=== PATIENT | female | born 1940 | race Caucasian/White ===

== ENCOUNTER 2021-05-25 11:43 | Outpatient (REF) | payer MEDICARE, SELFPAY ==
[2021-05-25 12:56] LABS: MANUAL DIFF FLAG NO
[2021-05-25 13:07] LABS: Basophils Percent Auto 0.3 % (0-2); Eosinophils Absolute Auto 0.3 X10*3/uL (0.0-0.4); Eosinophils Percent Auto 2.9 % (0-4); Hematocrit 42.8 % (37-47); Hemoglobin 13.9 g/dl (12.0-16.0); Imm Gran Abs Auto 0.04 X10*3/uL (0.00-0.03); Imm Gran Pct Auto 0.4 % (0.0-0.4); Lymphocytes Absolute Auto 1.2 X10*3/uL (1.2-4.9); Lymphocytes Percent Auto 13.1 % (20-40); Mean Corpuscular HGB Conc 32.5 g/dl (31.0-35.0); Mean Corpuscular Hemoglobin 31.5 pg (27.0-33.0); Mean Corpuscular Volume 97.1 fL (80-98); Monocytes Absolute Auto 0.8 X10*3/uL (0.1-1.2); Monocytes Percent Auto 8.7 % (2-11); Neutrophils Absolute Auto 7.1 X10*3/uL (2.0-8.3); Neutrophils Percent Auto 74.6 % (45-73); Platelet Count 284 X10*3/uL (160-400); Red Blood Count 4.41 X10*6/uL (4.20-5.50); Red Cell Distribution Width 13.9 % (11.0-16.0); White Blood Count 9.5 X10*3/uL (4.8-10.8)
[2021-05-25 13:26] LABS: Alanine Aminotransferase 7 U/L (0-31); Albumin Level 4.2 g/dL (3.5-5.0); Alkaline Phosphatase 103 U/L (39-117); Anion Gap 14 (12-20); Aspartate Amino Transferase 16 U/L (5-31); Bilirubin Total 0.4 mg/dL (0.0-1.0); Blood Urea Nitrogen 16 mg/dL (9-16); Calcium 9.5 mg/dL (8.4-10.2); Carbon Dioxide 30 mmol/L (22-29); Chloride 103 mmol/L (96-108); Cholesterol 180 mg/dL; Estimated Glomerular Filt Rate > 60; Glucose Random 89 mg/dL (60-115); Sodium 143 mmol/L (135-145); Total Protein 7.3 g/dL (6.5-8.0)
[2021-05-25 13:49] LABS: Thyroid Stimulating Hormone 2.04 uIU/mL (0.32-4.0)
[2021-05-25 15:36] LABS: Creatinine Urine 47.26 mg/dL; Microalbum/Creatinine Ratio Ur 10.5 ug/mg cr
[2021-05-31 08:11] LABS: HCV Log PCR <1.18 NOT DETECTED Log IU/mL (NOT DETECTED); HepC Viral Load <15 NOT DETECTED IU/mL (NOT DETECTED)
== END 2021-05-25 11:44 | disposition home or self-care (01) ==
LOC: HO.LAB 11:43
PROVIDERS: PCP Internal Medicine; Visit Provider Internal Medicine
DX: R60.0 Localized edema (principal); I10 Essential (primary) hypertension; E11.9 Type 2 diabetes mellitus without complications; K21.9 Gastro-esophageal reflux disease without esophagitis; M19.90 Unspecified osteoarthritis, unspecified site
CPT/HCPCS: 36415; 80053; 82043; 82465; 84443; 85025; 87522

== ENCOUNTER 2021-05-30 10:00 | Outpatient (RCR) | payer MEDICARE, SELFPAY | END 2021-06-15 18:16 | disposition home or self-care (01) | LOC: HO.PT 10:00 | PROVIDERS: Visit Provider Physician Assistant | DX: M76.62 Achilles tendinitis, left leg (principal) | CPT/HCPCS: 97110; 97112; 97150; 97161 ==

== ENCOUNTER 2021-08-17 11:13 | Outpatient (REF) | payer MEDICARE, SELFPAY ==
[2021-08-17 13:56] LABS: Estimated Average Glucose 117 mg/dL; Hemoglobin A1c % 5.7 %
[2021-08-17 14:13] LABS: Anion Gap 14 (12-20); Blood Urea Nitrogen 12 mg/dL (9-16); Calcium 9.7 mg/dL (8.4-10.2); Carbon Dioxide 28 mmol/L (22-29); Chloride 104 mmol/L (96-108); Estimated Glomerular Filt Rate > 60; Glucose Random 69 mg/dL (60-115); Potassium 4.5 mmol/L (3.3-5.1); Sodium 141 mmol/L (135-145)
[2021-08-17 14:23] LABS: B Type Natriuretic Peptide 193 pg/mL (<100)
== END 2021-08-17 11:14 | disposition home or self-care (01) ==
LOC: HO.10HDL 11:13
PROVIDERS: Visit Provider Internal Medicine
DX: E11.9 Type 2 diabetes mellitus without complications (principal); R05.9 Cough, unspecified; R60.9 Edema, unspecified
CPT/HCPCS: 36415; 80048; 83036; 83880

== ENCOUNTER 2021-08-28 13:58 | Outpatient (REF) | payer MEDICARE, SELFPAY ==
--- NOTE | ~2021-08-28 | XR_ITS ---
EXAMINATION: XR BILATERAL HIPS WITH AP PELVIS CLINICAL INFORMATION: Left hip pain COMPARISON: None TECHNIQUE: 2 views of each hip FINDINGS: No fracture or dislocation. The hips are well aligned. Mild joint space narrowing of both hips with subchondral sclerosis and small osteophytes. The sacroiliac joints are symmetric. The pubic symphysis is well aligned. Nonobstructive bowel gas pattern. XR/XR hips KUSHAL min 3V IMPRESSION: Mild degenerative changes of both hips.
== END 2021-08-28 13:59 | disposition home or self-care (01) ==
LOC: HO.XRAY 13:58
PROVIDERS: PCP Internal Medicine; Visit Provider Internal Medicine
DX: M25.552 Pain in left hip (principal)
CPT/HCPCS: 73522

== ENCOUNTER 2021-09-04 13:57 | Emergency (ER) | payer MEDICARE, SELFPAY ==
--- NOTE | ~2021-09-04 | CT_ITS ---
EXAMINATION: CT ABDOMEN AND PELVIS WITHOUT CONTRAST CLINICAL INFORMATION: Left flank pain COMPARISON: 01/08/2011 TECHNIQUE: Multidetector volumetric imaging was performed from the superior aspect of the liver through the pubic symphysis. Sagittal and coronal reformatted images were obtained on the technologist's workstation. This CT examination was performed using dose optimization techniques as appropriate, variously including the following: *Automated exposure control *Adjustment of mA and/or kV according to patient size (this includes techniques or standardized protocols for targeted exams where dose is matched to indication/reason for exam; i.e. extremities or head) *Use of iterative reconstruction technique DLP: 1268 mGy-cm FINDINGS: LUNG BASES: Bibasilar atelectasis. Coronary artery calcifications are noted. LIVER, GALLBLADDER, AND BILIARY TREE: The liver is normal in size, shape, and attenuation. No biliary ductal dilatation. There is a 1.3 cm simple cyst in segment 3 of the liver. The gallbladder is unremarkable with no evidence of radiopaque gallstones, gallbladder wall thickening, or obvious pericholecystic inflammatory changes. PANCREAS: Unremarkable. SPLEEN: Unremarkable. ADRENAL GLANDS: Unremarkable. KIDNEYS AND URETERS: The kidneys are normal in size, shape, and attenuation. No hydronephrosis, hydroureter, or calculi seen. No perinephric stranding. Simple cysts of the left kidney noted. No follow-up imaging recommended. BLADDER: Unremarkable. GASTROINTESTINAL TRACT: The stomach is unremarkable. Normal caliber small bowel. No obstruction. No colonic wall thickening or inflammatory change. There is diverticulosis without diverticulitis. The appendix is not definitively seen. No inflammatory changes in the region of the cecum to suggest appendicitis. Moderate colonic stool burden. ABDOMINAL WALL: No significant hernia is appreciated. LYMPH NODES: Normal. VASCULAR: Normal caliber aorta with mild atherosclerotic calcification. PELVIC VISCERA: The uterus is not seen. No adnexal mass. OSSEOUS STRUCTURES: No acute or suspicious osseous abnormality. Degenerative changes throughout the spine. Multilevel vacuum disc phenomenon. Mild degenerative changes of both hips. CT/CT abdomen pelvis wo con IMPRESSION: No acute findings in the abdomen or pelvis. No hydronephrosis or nephrolithiasis. Simple cysts of the liver and left kidney. No follow-up imaging recommended. Colonic diverticulosis without diverticulitis. Moderate stool burden.
--- NOTE | ~2021-09-04 | XR_ITS ---
EXAMINATION: XR CHEST CLINICAL INFORMATION: Dyspnea COMPARISON: 07/30/2019 TECHNIQUE: 2 views of the chest were obtained. FINDINGS: The lungs are well expanded. There is no focal consolidation, edema, or effusion. Bronchial wall thickening noted. No pneumothorax. The cardiomediastinal silhouette is within normal limits of size, with a calcified and tortuous aorta. No acute osseous abnormality. XR/XR chest 2V IMPRESSION: No consolidation. Bronchial wall thickening can be seen with a small airways process such as asthma or atypical/viral infection.
[2021-09-04 15:01] VITALS: BP 194/129; PULSE 109; RESP 24; TEMP 36.6; O2SAT 92; BMI 49.9
--- NOTE | 2021-09-04 16:16 | ECG_ITS ---
Test Reason : BACK PAIN Blood Pressure : / mmHG Vent. Rate : 087 BPM Atrial Rate : 087 BPM P-R Int : 180 ms QRS Dur : 092 ms QT Int : 402 ms P-R-T Axes : 057 -04 055 degrees QTc Int : 483 ms Normal sinus rhythm Normal ECG When compared with ECG of 30-JUL-2019 21:33, No significant change was found Referred By: Matt Rubio Electronically Signed By:RUBEN ENCISO MD
--- NOTE | 2021-09-04 16:20 | ED.GENADULT ---
HPI - General Adult General Chief complaint: General Medical Stated complaint: multiple complaints Time Seen by Provider: 09/04/21 16:02 Source: patient, family and old records reviewed Limitations: no limitations History of Present Illness HPI narrative: Patient complaining of left flank in the left abdominal pain. It started approximately a week ago. Is getting progressively worse. She was recently seen for bilateral hip pain, left greater than right and had an x-ray which revealed bilateral degenerative changes but no acute fractures. She denies any fevers or chills. Decreased appetite without nausea or vomiting. No diarrhea or constipation. History of hypertension, diabetes, obesity. History of COPD without history of smoking. She complains of dyspnea on exertion but that is baseline for her. No recent changes in her respiratory pattern per patient. Pain in her flank and back is worse with moving and stretching. No recent injuries or falls. No history of kidney stones Related Data Previous Rx's Medication Instructions Recorded oxycodone-acetaminophen 5 mg-325 1 tab PO TID PRN #14 tab 09/04/21 mg tablet (Percocet) Allergies Allergy/AdvReac Type Severity Reaction Status Date / Time mold [MOLD] Allergy Intermediate COUGHING, Verified 09/04/21 15:01 SINUS CONGESTION Penicillins [PENICILLINS] Allergy Intermediate REVERSE Verified 09/04/21 15:01 REACTION MAKES PT FEEL WORSE Review of Systems Constitutional: Comments: No fevers or chills or weight loss Cardiovascular: Comments: No chest pain Respiratory: Comments: Chronic cough and dyspnea Gastrointestinal: Comments: Left-sided flank and abdominal pain Genitourinary: Comments: No dysuria Musculoskeletal: Comments: Chronic bilateral hip pain acutely worse Integumentary/Breasts: Comments: No rash Neurologic: Comments: No weakness numbness or paresthesias COUNT INCLUDES THE [facility] Past Medical History Medical History (Updated 09/04/21 @ 18:10 by Matt Rubio MD) Arthritis COPD (chronic obstructive pulmonary disease) Hypertension Social History Social History Advance Directives: No Advance Directives Information Provided: No Physical Exam Vital Signs: Vital Signs: Last Vital Signs Temp 97.9 F 09/04/21 15:01 Pulse 109 H 09/04/21 15:01 Resp 18 09/04/21 17:28 BP 194/129 H 09/04/21 15:01 Pulse Ox 92 09/04/21 15:01 Body Mass Index 49.9 Const: Other: Awake and alert in no acute distress. She does appear dyspneic after Resp: Other: Diminished bilaterally with bibasilar rales Cardio: Other: Regular rate and rhythm without murmurs rubs or gallops GI: Other: Tender left upper abdomen without guarding or rebound. Also left flank tenderness. No lower abdominal tenderness Skin: Other: Warm pink and dry Neuro: Other: No obvious neuro deficit Course Course Course Narrative: Patient with left upper abdominal and flank pain. Musculoskeletal pain Diverticulitis Kidney stone Pyelonephritis Gastritis Peptic ulcer disease Pneumonia PE 5:[address] scan without significant pathology. White count is normal. Chemistries are unremarkable. Her BNP is mildly elevated at 322 butter x-ray shows no evidence of congestive heart failure patient states her breathing is at its baseline. Her high sensitivity troponin is 8.9. Her blood pressure is initially elevated 194/129. Will repeat. 6:08 p.m.. On further review, patient states she did not take her blood pressure medications morning. She is unsure of what the medication is but review of external history shows she is on diltiazem 360 mg daily as well as furosemide 40 mg daily. Both of these ordered in the emergency department. Patient is otherwise stable for discharge home. Prescription for oxycodone and follow up physical therapy. Medical Decision Making Lab Data Result diagrams: 09/04/21 17:10 09/04/21 17:09 Labs: Lab Results 09/04/21 09/04/21 09/04/21 Range/Units 17:09 17:09 17:10 WBC 9.8 (4.8-10.8) X10*3/uL RBC 4.88 (4.20-5.50) X10*6/uL Hgb 15.5 (12.0-16.0) g/dl Hct 46.3 (37.0-47.0) % MCV 94.9 (80.0-98.0) fL MCH 31.8 (27.0-33.0) pg MCHC 33.5 (31.0-35.0) g/dl RDW 13.6 (11.0-16.0) % Plt Count 280 (160-400) X10*3/uL MPV 10.2 (9.4-12.3) fL Immature Gran % (Auto) 0.5 H (0.0-0.4) % Neut % (Auto) 76.0 H (45-73) % Lymph % (Auto) 12.4 L (20-40) % [place] % (Auto) 9.1 (2-11) % Eos % (Auto) 1.6 (0-4) % Baso % (Auto) 0.4 (0-2) % Lymph # (Auto) 1.2 (1.2-4.9) X10*3/uL [place] # (Auto) 0.9 (0.1-1.2) X10*3/uL Eos # (Auto) 0.2 (0.0-0.4) X10*3/uL Baso # (Auto) 0.0 (0.0-0.2) X10*3/uL Abs Immat Gran (auto) 0.05 H (0.00-0.03) X10*3/uL Absolute Neuts (auto) 7.44 (2.0-8.3) x10*3/uL Absolute Nucleated RBC 0.000 (0.0-0.012) X10*3/uL Nucleated RBC % (auto) 0.0 (0.0-0.2) /100WBC PT 11.2 (9.9-13.0) SEC INR 1.0 (0.9-1.1) D-Dimer < 200 NG/ML Sodium 139 (135-145) mmol/L Potassium 4.1 (3.3-5.1) mmol/L Chloride 105 (96-108) mmol/L Carbon Dioxide 24 (22-29) mmol/L Anion Gap 14 (12-20) BUN 10 (9-16) mg/dL Creatinine 0.72 (0.5-1.4) mg/dL Estim Creat Clear Calc 88.6 Estimated GFR > 60 Random Glucose 103 (60-115) mg/dL Calcium 9.4 (8.4-10.2) mg/dL Total Bilirubin 0.4 (0.0-1.0) mg/dL AST 19 (5-31) U/L ALT 12 (0-31) U/L Alkaline Phosphatase 99 (39-117) U/L Troponin I High Sens (<3.5-17.0) ng/L B-Natriuretic Peptide (<100) pg/mL Total Protein 7.8 (6.5-8.0) g/dL Albumin 4.2 (3.5-5.0) g/dL Lipase 41 (8-78) U/L Urine Color Urine Appearance Urine pH (5.0-8.0) Ur Specific Weatherly (1.005-1.025) Urine Protein (NEG-TRACE) MG/DL Urine Glucose (UA) (NEG) MG/DL Urine Ketones (NEG) MG/DL Urine Blood (NEG) Urine Nitrite (NEG) Ur Leukocyte Esterase (NEG) Urine RBC (0) /HPF Urine WBC (0-4) /HPF Ur Squamous Epith Cells /LPF Urine Bacteria /LPF Urine Mucus /LPF COVID-19 (ANTHONY) (Negative) COVID-19 Clin Com 09/04/21 09/04/21 09/04/21 Range/Units 17:10 17:10 17:10 WBC (4.8-10.8) X10*3/uL RBC (4.20-5.50) X10*6/uL Hgb (12.0-16.0) g/dl Hct (37.0-47.0) % MCV (80.0-98.0) fL MCH (27.0-33.0) pg MCHC (31.0-35.0) g/dl RDW (11.0-16.0) % Plt Count (160-400) X10*3/uL MPV (9.4-12.3) fL Immature Gran % (Auto) (0.0-0.4) % Neut % (Auto) (45-73) % Lymph % (Auto) (20-40) % [place] % (Auto) (2-11) % Eos % (Auto) (0-4) % Baso % (Auto) (0-2) % Lymph # (Auto) (1.2-4.9) X10*3/uL [place] # (Auto) (0.1-1.2) X10*3/uL Eos # (Auto) (0.0-0.4) X10*3/uL Baso # (Auto) (0.0-0.2) X10*3/uL Abs Immat Gran (auto) (0.00-0.03) X10*3/uL Absolute Neuts (auto) (2.0-8.3) x10*3/uL Absolute Nucleated RBC (0.0-0.012) X10*3/uL Nucleated RBC % (auto) (0.0-0.2) /100WBC PT (9.9-13.0) SEC INR (0.9-1.1) D-Dimer NG/ML Sodium (135-145) mmol/L Potassium (3.3-5.1) mmol/L Chloride (96-108) mmol/L Carbon Dioxide (22-29) mmol/L Anion Gap (12-20) BUN (9-16) mg/dL Creatinine (0.5-1.4) mg/dL Estim Creat Clear Calc Estimated GFR Random Glucose (60-115) mg/dL Calcium (8.4-10.2) mg/dL Total Bilirubin (0.0-1.0) mg/dL AST (5-31) U/L ALT (0-31) U/L Alkaline Phosphatase (39-117) U/L Troponin I High Sens 8.9 (<3.5-17.0) ng/L B-Natriuretic Peptide 322 H (<100) pg/mL Total Protein (6.5-8.0) g/dL Albumin (3.5-5.0) g/dL Lipase (8-78) U/L Urine Color Urine Appearance Urine pH (5.0-8.0) Ur Specific Weatherly (1.005-1.025) Urine Protein (NEG-TRACE) MG/DL Urine Glucose (UA) (NEG) MG/DL Urine Ketones (NEG) MG/DL Urine Blood (NEG) Urine Nitrite (NEG) Ur Leukocyte Esterase (NEG) Urine RBC (0) /HPF Urine WBC (0-4) /HPF Ur Squamous Epith Cells /LPF Urine Bacteria /LPF Urine Mucus /LPF COVID-19 (ANTHONY) Negative (Negative) COVID-19 Clin Com See Note 09/04/21 Range/Units 17:10 WBC (4.8-10.8) X10*3/uL RBC (4.20-5.50) X10*6/uL Hgb (12.0-16.0) g/dl Hct (37.0-47.0) % MCV (80.0-98.0) fL MCH (27.0-33.0) pg MCHC (31.0-35.0) g/dl RDW (11.0-16.0) % Plt Count (160-400) X10*3/uL MPV (9.4-12.3) fL Immature Gran % (Auto) (0.0-0.4) % Neut % (Auto) (45-73) % Lymph % (Auto) (20-40) % [place] % (Auto) (2-11) % Eos % (Auto) (0-4) % Baso % (Auto) (0-2) % Lymph # (Auto) (1.2-4.9) X10*3/uL [place] # (Auto) (0.1-1.2) X10*3/uL Eos # (Auto) (0.0-0.4) X10*3/uL Baso # (Auto) (0.0-0.2) X10*3/uL Abs Immat Gran (auto) (0.00-0.03) X10*3/uL Absolute Neuts (auto) (2.0-8.3) x10*3/uL Absolute Nucleated RBC (0.0-0.012) X10*3/uL Nucleated RBC % (auto) (0.0-0.2) /100WBC PT (9.9-13.0) SEC INR (0.9-1.1) D-Dimer NG/ML Sodium (135-145) mmol/L Potassium (3.3-5.1) mmol/L Chloride (96-108) mmol/L Carbon Dioxide (22-29) mmol/L Anion Gap (12-20) BUN (9-16) mg/dL Creatinine (0.5-1.4) mg/dL Estim Creat Clear Calc Estimated GFR Random Glucose (60-115) mg/dL Calcium (8.4-10.2) mg/dL Total Bilirubin (0.0-1.0) mg/dL AST (5-31) U/L ALT (0-31) U/L Alkaline Phosphatase (39-117) U/L Troponin I High Sens (<3.5-17.0) ng/L B-Natriuretic Peptide (<100) pg/mL Total Protein (6.5-8.0) g/dL Albumin (3.5-5.0) g/dL Lipase (8-78) U/L Urine Color YELLOW Urine Appearance HAZY Urine pH 7.0 (5.0-8.0) Ur Specific [place] 1.015 (1.005-1.025) Urine Protein NEG (NEG-TRACE) MG/DL Urine Glucose (UA) NEG (NEG) MG/DL Urine Ketones NEG (NEG) MG/DL Urine Blood NEG (NEG) Urine Nitrite POS H (NEG) Ur Leukocyte Esterase NEG (NEG) Urine RBC 0 (0) /HPF Urine WBC 0-2 (0-4) /HPF Ur Squamous Epith Cells 2+ /LPF Urine Bacteria 3+ /LPF Urine Mucus 1+ /LPF COVID-19 (ANTHONY) (Negative) COVID-19 Clin Com Discharge Plan Discharge Clinical Impression: Back pain Qualifiers: Back pain location: thoracic back pain Chronicity: acute Back pain laterality: left Qualified Code(s): M54.6 - Pain in thoracic spine Hypertension Qualifiers: Hypertension type: primary hypertension Qualified Code(s): I10 - Essential (primary) hypertension Patient Disposition: Home, Self-Care Instructions: Chronic Hypertension (ED), Back Pain (ED) Additional Instructions: Return if worse in any way Continue current medications. Percocet for severe pain. Be sure to take all of your medications daily, especially your blood pressure pills Prescriptions: New oxycodone-acetaminophen [Percocet] 5-325 mg tablet 1 tab PO TID PRN (Reason: pain) Qty: 14 RF: 0 Referrals: Dell Cortez MD [Physician] - 2 days
[2021-09-04 17:16] LABS: MANUAL DIFF FLAG NO
[2021-09-04 17:17] LABS: Appearance Urine HAZY; Basophils Percent Auto 0.4 % (0-2); Color Urine YELLOW; Eosinophils Absolute Auto 0.2 X10*3/uL (0.0-0.4); Eosinophils Percent Auto 1.6 % (0-4); Glucose Urine UA NEG (NEG); Hematocrit 46.3 % (37.0-47.0); Hemoglobin 15.5 g/dl (12.0-16.0); Imm Gran Abs Auto 0.05 X10*3/uL (0.00-0.03); Imm Gran Pct Auto 0.5 % (0.0-0.4); Leukocyte Esterase Urine NEG (NEG); Lymphocytes Absolute Auto 1.2 X10*3/uL (1.2-4.9); Lymphocytes Percent Auto 12.4 % (20-40); Mean Corpuscular HGB Conc 33.5 g/dl (31.0-35.0); Mean Corpuscular Hemoglobin 31.8 pg (27.0-33.0); Mean Corpuscular Volume 94.9 fL (80.0-98.0); Mean Platelet Volume 10.2 fL (9.4-12.3); Monocytes Absolute Auto 0.9 X10*3/uL (0.1-1.2); Monocytes Percent Auto 9.1 % (2-11); Neutrophils Absolute Auto 7.44 x10*3/uL (2.0-8.3); Nitrite Urine POS (NEG); Platelet Count 280 X10*3/uL (160-400); Red Blood Count 4.88 X10*6/uL (4.20-5.50); Red Cell Distribution Width 13.6 % (11.0-16.0); Specific Gravity - Urine 1.015 (1.005-1.025); UACC Culture Trigger YES; Urine Blood NEG (NEG); Urine Ketones NEG (NEG); Urine Protein NEG (NEG-TRACE); White Blood Count 9.8 X10*3/uL (4.8-10.8)
[2021-09-04 17:23] LABS: Prothrombin Time 11.2 SEC (9.9-13.0)
[2021-09-04 17:23] LABS: Bacteria Urine 3+ /LPF; Mucus Urine 1+ /LPF; RBC Urine 0 /HPF (0); Squamous Epithelial Cell Urine 2+ /LPF; WBC Urine 0-2 /HPF (0-4)
[2021-09-04 17:27] LABS: D Dimer < 200 NG/ML
[2021-09-04 17:28] VITALS: RESP 18
[2021-09-04] MEDS: HYDROmorphone HCl 1 MG/ML SYRINGE IVPUSH (17:28)
[2021-09-04 17:37] LABS: B Type Natriuretic Peptide 322 pg/mL (<100)
[2021-09-04 17:38] LABS: Troponin-I High Sensitivity 8.9 ng/L (<3.5-17.0)
[2021-09-04 17:42] LABS: Alanine Aminotransferase 12 U/L (0-31); Albumin Level 4.2 g/dL (3.5-5.0); Alkaline Phosphatase 99 U/L (39-117); Anion Gap 14 (12-20); Aspartate Amino Transferase 19 U/L (5-31); Bilirubin Total 0.4 mg/dL (0.0-1.0); Blood Urea Nitrogen 10 mg/dL (9-16); Calcium 9.4 mg/dL (8.4-10.2); Carbon Dioxide 24 mmol/L (22-29); Chloride 105 mmol/L (96-108); Creatinine Clr Calc Pharmacy 88.6; Estimated Glomerular Filt Rate > 60; Glucose Random 103 mg/dL (60-115); Lipase 41 U/L (8-78); Potassium 4.1 mmol/L (3.3-5.1); Sodium 139 mmol/L (135-145); Total Protein 7.8 g/dL (6.5-8.0)
--- NOTE | 2021-09-04 17:48 | PC.NURSE ---
patient medicated w/ dilaudid per order for 10/10 low back and hip pain. patient sleeping after med administration. O2 sat 86% on room air, patient awakens easily to verbal stimuli. 2lpm via NC applied. patient states pain is much better
[2021-09-04 17:54] LABS: COVID-19 Test Negative (Negative); IDNOW Serial# 9DD0AD1C
[2021-09-04 18:22] VITALS: BP 184/100; PULSE 86
[2021-09-04] MEDS: Furosemide 40 MG TABLET PO (18:22)
[2021-09-04] MEDS: dilTIAZem HCL CD 180 MG CAP.ER.24H 360 MG PO (18:22)
[2021-09-04 18:42] VITALS: BP 185/92; PULSE 83; RESP 18; O2SAT 92
[2021-09-04] MEDS: Ondansetron ODT 4 MG TAB.RAPDIS TRANSLINGU (18:56)
== END 2021-09-04 20:35 | disposition home or self-care (01) ==
PROVIDERS: Emergency Provider Emergency Medicine; PCP Internal Medicine
DX: M54.6 Pain in thoracic spine (principal); R10.9 Unspecified abdominal pain; I10 Essential (primary) hypertension; E11.9 Type 2 diabetes mellitus without complications; J44.9 Chronic obstructive pulmonary disease, unspecified; Z79.899 Other long term (current) drug therapy
CPT/HCPCS: 36415; 71046; 74176; 80053; 81001; 83690; 83880; 84484; 85025; 85379; 85610; 87086; 87088; 87186; 87635; 93005; 99284; J1170

== ENCOUNTER 2021-09-05 10:52 | Inpatient (IN) | payer MEDICARE, SELFPAY ==
[2021-09-05] VITALS (9 sets, daily range): BP systolic 137–175; BP diastolic 71–83; PULSE 76–108; RESP 18–22; TEMP 36.5–37.2; O2SAT 90–99; BMI 49.9
--- NOTE | ~2021-09-05 | XR_ITS ---
EXAMINATION: XR CHEST CLINICAL INFORMATION: Hypoxia. Assess for pneumonia. COMPARISON: Chest radiographs 09/04/2021, 07/30/2019, 09/19/2018 TECHNIQUE: Portable upright AP view of the chest was obtained. FINDINGS: There is enlarged cardiopericardial silhouette with increased central vascularity and cephalization of flow suggesting elevated pulmonary venous pressures/mild vascular congestion. There is questionable airspace opacity or atelectasis left retrocardiac region. Lungs otherwise show no airspace consolidation. There is no gross effusion. The hilar and mediastinal contours and bony structures are unremarkable. XR/XR chest 1V IMPRESSION: 1. Mild pulmonary vascular congestion. 2. Subtle airspace opacity left retrocardiac region (airspace opacity versus atelectasis).
--- NOTE | 2021-09-05 11:35 | ECG_ITS ---
Test Reason : ABDOMINAL PAIN Blood Pressure : / mmHG Vent. Rate : 091 BPM Atrial Rate : 091 BPM P-R Int : 194 ms QRS Dur : 090 ms QT Int : 388 ms P-R-T Axes : 058 -03 043 degrees QTc Int : 477 ms Normal sinus rhythm Normal ECG No significant changes seen Referred By: Misha Calhoun Electronically Signed By:RUBEN ENCISO MD
[2021-09-05 12:09] LABS: ABG Base Excess 4.6 mmol/L; ABG HCO3 30 mmol/L (22-26); ABG pCO2 51 mmHg (32-45); ABG pCO2 TC 50 mmHg (32-45); ABG pH 7.38 (7.35-7.45); ABG pH TC 7.39 (7.35-7.45); ABG pO2 57 mmHg (83-108); ABG pO2 TC 55 (83-108)
[2021-09-05] MEDS: 0.9 % Sodium Chloride 1,000 ML 999 ML IV (12:11)
[2021-09-05] MEDS: Ketorolac Tromethamine 15 MG/ML VIAL IVPUSH (12:12)
[2021-09-05] MEDS: ondansetron HCL 4 MG/2 ML VIAL IVPUSH ×2 (12:13→13:44)
[2021-09-05 12:21] LABS: MANUAL DIFF FLAG NO
[2021-09-05 12:22] LABS: Basophils Percent Auto 0.2 % (0-2); Eosinophils Percent Auto 0.1 % (0-4); Hematocrit 45.6 % (37.0-47.0); Hemoglobin 14.5 g/dl (12.0-16.0); Imm Gran Abs Auto 0.06 X10*3/uL (0.00-0.03); Imm Gran Pct Auto 0.5 % (0.0-0.4); Lymphocytes Absolute Auto 0.7 X10*3/uL (1.2-4.9); Lymphocytes Percent Auto 5.4 % (20-40); Mean Corpuscular HGB Conc 31.8 g/dl (31.0-35.0); Mean Corpuscular Hemoglobin 31.2 pg (27.0-33.0); Mean Corpuscular Volume 98.1 fL (80.0-98.0); Mean Platelet Volume 10.2 fL (9.4-12.3); Monocytes Absolute Auto 0.8 X10*3/uL (0.1-1.2); Monocytes Percent Auto 6.3 % (2-11); Neutrophils Absolute Auto 11.47 x10*3/uL (2.0-8.3); Neutrophils Percent Auto 87.5 % (45-73); Platelet Count 260 X10*3/uL (160-400); Red Blood Count 4.65 X10*6/uL (4.20-5.50); Red Cell Distribution Width 13.9 % (11.0-16.0); White Blood Count 13.1 X10*3/uL (4.8-10.8)
[2021-09-05 12:36] LABS: D Dimer < 200 NG/ML
[2021-09-05 12:41] LABS: COVID-19 Test Negative (Negative)
[2021-09-05 12:51] LABS: B Type Natriuretic Peptide 378 pg/mL (<100)
[2021-09-05 12:55] LABS: Alanine Aminotransferase 15 U/L (0-31); Albumin Level 4.1 g/dL (3.5-5.0); Alkaline Phosphatase 96 U/L (39-117); Anion Gap 14 (12-20); Aspartate Amino Transferase 25 U/L (5-31); Bilirubin Total 0.5 mg/dL (0.0-1.0); Blood Urea Nitrogen 11 mg/dL (9-16); Carbon Dioxide 26 mmol/L (22-29); Chloride 103 mmol/L (96-108); Creatinine Clr Calc Pharmacy 82.9; Estimated Glomerular Filt Rate > 60; Glucose Random 110 mg/dL (60-115); Lipase 38 U/L (8-78); Potassium 4.3 mmol/L (3.3-5.1); Sodium 139 mmol/L (135-145); Total Protein 7.5 g/dL (6.5-8.0)
[2021-09-05] MEDS: cefTRIAXone sodium 1 GM in 0.9 % Sodium Chloride 50 ML IV (13:43)
[2021-09-05] MEDS: Morphine Sulfate 4 MG/ML CARTRIDGE IVPUSH (13:44)
[2021-09-05 13:51] LABS: Appearance Urine CLOUDY; Color Urine YELLOW; Glucose Urine UA NEG (NEG); Leukocyte Esterase Urine NEG (NEG); Nitrite Urine POS (NEG); Specific Gravity - Urine >= 1.030 (1.005-1.025); UACC Culture Trigger YES; Urine Blood NEG (NEG); Urine Ketones NEG (NEG); Urine Protein TRACE MG/DL (NEG-TRACE)
[2021-09-05 14:02] LABS: ABG Refer to POC result
[2021-09-05 14:05] LABS: Bacteria Urine 2+ /LPF
[2021-09-05 14:06] LABS: Mucus Urine TRACE /LPF; RBC Urine 0-2 /HPF (0); Squamous Epithelial Cell Urine 1+ /LPF
--- NOTE | 2021-09-05 14:40 | ED.GENADULT ---
HPI - General Adult General Chief complaint: Nausea/Vomiting/Diarrhea Stated complaint: VOMITING,SEEN T-1 Time Seen by Provider: 09/05/21 11:04 Source: patient Mode of arrival: EMS Limitations: no limitations History of Present Illness HPI narrative: 81-year-old female who presents emergency department for evaluation of nausea, vomiting, back pain and low O2 saturations in the 80% range. Patient was seen here in the emergency department yesterday for back pain the patient does not report any injury. She states that the pain came on gradually and started in her lower back and then moved her middle back. She states the pain is now a constant, sharp pain which is 10/10 at its worst. The patient does not have any radiation of the pain to her legs, numbness of her legs or weakness of her legs. She denies loss of bowel or bladder control. Yesterday in the emergency department she was treated with Dilaudid IV which caused her to have nausea and vomiting. This was treated with Zofran IV and the patient did feel better and was discharged home. The patient did have a CT scan of her abdomen pelvis yesterday degenerative changes throughout the spine with multilevel disc disease. There was no acute abdominal finding. The patient states that since going home yesterday she has continued to have 10/10 back pain. She has also had persistent nausea with multiple episodes of vomiting, she states she has not been able to eat or drink since leaving the hospital. She denied fever, chills, chest pain, shortness of breath, she states that she is feeling very fatigued. Patient does have a history of COPD, she has never been a smoker. She states that her O2 saturations are low but cannot state a value. She does not use home oxygen. Related Data Previous Rx's Medication Instructions Recorded ondansetron HCl 4 mg tablet 4 mg PO Q8H PRN #10 tab 09/04/21 (Zofran) oxycodone-acetaminophen 5 mg-325 1 tab PO TID PRN #14 tab 09/04/21 mg tablet (Percocet) Allergies Allergy/AdvReac Type Severity Reaction Status Date / Time mold [MOLD] Allergy Intermediate COUGHING, Verified 09/04/21 15:01 SINUS CONGESTION Penicillins [PENICILLINS] Allergy Intermediate REVERSE Verified 09/04/21 15:01 REACTION MAKES PT FEEL WORSE Review of Systems Review of Systems: Yes all other systems are reviewed and are negative [facility] Past Medical History [facility] Narrative: Past medical history: Diabetes mellitus, hypertension, hyperlipidemia, osteoarthritis, COPD. Past surgical history: Hysterectomy. Social history: The patient is and lives with her who is here in the emergency department with her. She denies tobacco use, she has never been a smoker. She denies alcohol use. She denies drug use. Medical History (Updated 09/05/21 @ 14:52 by Misha Calhoun MD) Arthritis COPD (chronic obstructive pulmonary disease) Hypertension Social History Social History Advance Directives: No Advance Directives Information Provided: No Physical Exam Vital Signs: Vital Signs: Last Vital Signs Temp 98.9 F 09/05/21 15:24 Pulse 87 09/05/21 15:24 Resp 20 09/05/21 15:24 BP 149/81 H 09/05/21 15:24 Pulse Ox 94 09/05/21 15:24 Body Mass Index 49.9 Const: Other: Very pleasant and cooperative female patient, she appears to be in [id number] distress secondary to her back pain, she is able answer all questions without any difficulty. HENMT: Head: Yes normal to inspection, Yes normocephalic and Yes atraumatic Ears: external ears normal General nose exam: Normal external nose present Face and sinus: Yes normal facial exam Mouth: Normal oral and palatal mucosa present Throat: Yes posterior oropharynx normal Eyes: General: appearance normal, both eyes and all related structures Pupils: Equal, round and reactive pupils present Neck: Neck: Yes normal visual inspection, Yes no lymphadenopathy, Yes trachea midline and Yes supple Chest: Chest palpation & inspection: normal inspection of the chest and normal palpation of entire chest wall Resp: Effort & Inspection: normal respiratory effort and able to speak in complete sentences Auscultation: crackles bilateral (Basis), rhonchi (Diffuse) and no wheezes Cardio: Rate: regular rate Rhythm: regular rhythm Heart sounds: S1 normal heart sound present, S2 normal heart sound present and no murmurs GI: Inspection: Yes normal to inspection Palpation (GI): Soft to palpation, nontender and no guarding Auscultation: normal bowel sounds Back/Spine/Pelvis: Other: The patient has tenderness palpation of her cervical spine in the thoracic lumbar area as well as tenderness with palpation of the paraspinal muscles in the thoracic and lumbar areas bilaterally with no spasm. She has negative straight leg raises bilaterally. Patient has normal strength in her lower extremities with normal light touch. Skin: General skin exam: no rashes or lesions noted Neuro: Cranial nerves: Yes CN's II-XII intact bilaterally and Yes Equal, round and reactive pupils present Cognition (Neuro): normal cognition Motor exam (neuro): 5/5 motor strength present throughout Extrem: General: Yes normal to inspection Psych: Appearance: grossly normal Speech and movement: Normal speech and movement present Affect: normal affect Attitude: cooperative Thought process: Normal thought process present Thought content: Normal thought content present Course Course Course Narrative: 81-year-old female who was seen in the emergency department yesterday for back pain treated with Dilaudid subsequently developed nausea and vomiting which was treated with Zofran. Patient states that she has continued to have lower back pain as well as persistent nausea and vomiting to the point where she has not been able to eat or drink the last 24 hours. The patient does have COPD and was I use home oxygen and her O2 saturation during transport was 80% on room air. Here in the emergency department, her O2 saturation was 88-92% with O2 sensing on her here lobe. Patient's lung exam did reveal rales and rhonchi at the bases. Back examination did reveal tenderness palpation of her thoracic and lumbar spine as well as tenderness with palpation of the paraspinal muscles in these regions. Laboratory evaluation including a workup for pneumonia was ordered to include CBC, CMP, troponin, lactate, blood cultures x2 and EKG. 1450: Laboratory: WBC elevated at 13,100 thousand one hundred. BNP is elevated at 378. Lactate was normal 1.0. Chest x-ray is consistent with mild CHF and left retrocardiac infiltrate. ABG on room air revealed pH of 7.38, pCO2 of 51, PO2 of 57, bicarb of 30 with O2 saturation of 85% on room air. The patient's presentation is concerning for pneumonia, she was treated with ceftriaxone 1 g IV and azithromycin 500 mg IV. Her back pain was treated with Toradol 15 mg IV with no relief for pain. She was then given morphine 4 mg IV with some improvement of her discomfort. She also received Zofran 4 mg IV for her nausea. I did discuss the patient's presentation with the covering hospitalist the patient will be admitted for further management of her pneumonia and back pain. Medical Decision Making Lab Data Result diagrams: 09/05/21 12:09 09/05/21 12:09 Labs: Lab Results 09/05/21 09/05/21 09/05/21 Range/Units 12:03 12:09 12:09 WBC 13.1 H (4.8-10.8) X10*3/uL RBC 4.65 (4.20-5.50) X10*6/uL Hgb 14.5 (12.0-16.0) g/dl Hct 45.6 (37.0-47.0) % MCV 98.1 H (80.0-98.0) fL MCH 31.2 (27.0-33.0) pg MCHC 31.8 (31.0-35.0) g/dl RDW 13.9 (11.0-16.0) % Plt Count 260 (160-400) X10*3/uL MPV 10.2 (9.4-12.3) fL Immature Gran % (Auto) 0.5 H (0.0-0.4) % Neut % (Auto) 87.5 H (45-73) % Lymph % (Auto) 5.4 L (20-40) % Granville % (Auto) 6.3 (2-11) % Eos % (Auto) 0.1 (0-4) % Baso % (Auto) 0.2 (0-2) % Lymph # (Auto) 0.7 L (1.2-4.9) X10*3/uL [place]ville # (Auto) 0.8 (0.1-1.2) X10*3/uL Eos # (Auto) 0.0 (0.0-0.4) X10*3/uL Baso # (Auto) 0.0 (0.0-0.2) X10*3/uL Abs Immat Gran (auto) 0.06 H (0.00-0.03) X10*3/uL Absolute Neuts (auto) 11.47 H (2.0-8.3) x10*3/uL Absolute Nucleated RBC 0.000 (0.0-0.012) X10*3/uL Nucleated RBC % (auto) 0.0 (0.0-0.2) /100WBC D-Dimer < 200 NG/ML O2 Saturation 85.0 % ABG pH at Pt Temp 7.38 (7.35-7.45) ABG pH (Temp Correct) 7.39 (7.35-7.45) ABG pCO2 at Pt Temp 51 H (32-45) mmHg ABG pCO2 (Temp Corrct 50 H (32-45) mmHg ABG pO2 at Pt Temp 57 L (83-108) mmHg ABG pO2 (Temp Correct 55 L (83-108) ABG HCO3 30 H (22-26) mmol/L ABG Base Excess (Actual) 4.6 mmol/L Sodium (135-145) mmol/L Potassium (3.3-5.1) mmol/L Chloride (96-108) mmol/L Carbon Dioxide (22-29) mmol/L Anion Gap (12-20) BUN (9-16) mg/dL Creatinine (0.5-1.4) mg/dL Estim Creat Clear Calc Estimated GFR Random Glucose (60-115) mg/dL Lactic Acid (0.5-2.0) mmol/L Calcium (8.4-10.2) mg/dL Total Bilirubin (0.0-1.0) mg/dL AST (5-31) U/L ALT (0-31) U/L Alkaline Phosphatase (39-117) U/L B-Natriuretic Peptide (<100) pg/mL Total Protein (6.5-8.0) g/dL Albumin (3.5-5.0) g/dL Lipase (8-78) U/L Urine Color Urine Appearance Urine pH (5.0-8.0) Ur Specific Kennedy (1.005-1.025) Urine Protein (NEG-TRACE) MG/DL Urine Glucose (UA) (NEG) MG/DL Urine Ketones (NEG) MG/DL Urine Blood (NEG) Urine Nitrite (NEG) Ur Leukocyte Esterase (NEG) Urine RBC (0) /HPF Urine WBC (0-4) /HPF Ur Squamous Epith Cells /LPF Urine Bacteria /LPF Urine Mucus /LPF COVID-19 (ANTHONY) (Negative) COVID-19 Clin Com 09/05/21 09/05/21 09/05/21 Range/Units 12:09 12:09 12:09 WBC (4.8-10.8) X10*3/uL RBC (4.20-5.50) X10*6/uL Hgb (12.0-16.0) g/dl Hct (37.0-47.0) % MCV (80.0-98.0) fL MCH (27.0-33.0) pg MCHC (31.0-35.0) g/dl RDW (11.0-16.0) % Plt Count (160-400) X10*3/uL MPV (9.4-12.3) fL Immature Gran % (Auto) (0.0-0.4) % Neut % (Auto) (45-73) % Lymph % (Auto) (20-40) % Granville % (Auto) (2-11) % Eos % (Auto) (0-4) % Baso % (Auto) (0-2) % Lymph # (Auto) (1.2-4.9) X10*3/uL Granville # (Auto) (0.1-1.2) X10*3/uL Eos # (Auto) (0.0-0.4) X10*3/uL Baso # (Auto) (0.0-0.2) X10*3/uL Abs Immat Gran (auto) (0.00-0.03) X10*3/uL Absolute Neuts (auto) (2.0-8.3) x10*3/uL Absolute Nucleated RBC (0.0-0.012) X10*3/uL Nucleated RBC % (auto) (0.0-0.2) /100WBC D-Dimer NG/ML O2 Saturation % ABG pH at Pt Temp (7.35-7.45) ABG pH (Temp Correct) (7.35-7.45) ABG pCO2 at Pt Temp (32-45) mmHg ABG pCO2 (Temp Corrct (32-45) mmHg ABG pO2 at Pt Temp (83-108) mmHg ABG pO2 (Temp Correct (83-108) ABG HCO3 (22-26) mmol/L ABG Base Excess (Actual) mmol/L Sodium 139 (135-145) mmol/L Potassium 4.3 (3.3-5.1) mmol/L Chloride 103 (96-108) mmol/L Carbon Dioxide 26 (22-29) mmol/L Anion Gap 14 (12-20) BUN 11 (9-16) mg/dL Creatinine 0.77 (0.5-1.4) mg/dL Estim Creat Clear Calc 82.9 Estimated GFR > 60 Random Glucose 110 (60-115) mg/dL Lactic Acid 1.0 (0.5-2.0) mmol/L Calcium 9.0 (8.4-10.2) mg/dL Total Bilirubin 0.5 (0.0-1.0) mg/dL AST 25 (5-31) U/L ALT 15 (0-31) U/L Alkaline Phosphatase 96 (39-117) U/L B-Natriuretic Peptide 378 H (<100) pg/mL Total Protein 7.5 (6.5-8.0) g/dL Albumin 4.1 (3.5-5.0) g/dL Lipase 38 (8-78) U/L Urine Color Urine Appearance Urine pH (5.0-8.0) Ur Specific Kennedy (1.005-1.025) Urine Protein (NEG-TRACE) MG/DL Urine Glucose (UA) (NEG) MG/DL Urine Ketones (NEG) MG/DL Urine Blood (NEG) Urine Nitrite (NEG) Ur Leukocyte Esterase (NEG) Urine RBC (0) /HPF Urine WBC (0-4) /HPF Ur Squamous Epith Cells /LPF Urine Bacteria /LPF Urine Mucus /LPF COVID-19 (ANTHONY) (Negative) COVID-19 Clin Com 09/05/21 09/05/21 Range/Units 12:09 13:43 WBC (4.8-10.8) X10*3/uL RBC (4.20-5.50) X10*6/uL Hgb (12.0-16.0) g/dl Hct (37.0-47.0) % MCV (80.0-98.0) fL MCH (27.0-33.0) pg MCHC (31.0-35.0) g/dl RDW (11.0-16.0) % Plt Count (160-400) X10*3/uL MPV (9.4-12.3) fL Immature Gran % (Auto) (0.0-0.4) % Neut % (Auto) (45-73) % Lymph % (Auto) (20-40) % [place]ville % (Auto) (2-11) % Eos % (Auto) (0-4) % Baso % (Auto) (0-2) % Lymph # (Auto) (1.2-4.9) X10*3/uL [place] # (Auto) (0.1-1.2) X10*3/uL Eos # (Auto) (0.0-0.4) X10*3/uL Baso # (Auto) (0.0-0.2) X10*3/uL Abs Immat Gran (auto) (0.00-0.03) X10*3/uL Absolute Neuts (auto) (2.0-8.3) x10*3/uL Absolute Nucleated RBC (0.0-0.012) X10*3/uL Nucleated RBC % (auto) (0.0-0.2) /100WBC D-Dimer NG/ML O2 Saturation % ABG pH at Pt Temp (7.35-7.45) ABG pH (Temp Correct) (7.35-7.45) ABG pCO2 at Pt Temp (32-45) mmHg ABG pCO2 (Temp Corrct (32-45) mmHg ABG pO2 at Pt Temp (83-108) mmHg ABG pO2 (Temp Correct (83-108) ABG HCO3 (22-26) mmol/L ABG Base Excess (Actual) mmol/L Sodium (135-145) mmol/L Potassium (3.3-5.1) mmol/L Chloride (96-108) mmol/L Carbon Dioxide (22-29) mmol/L Anion Gap (12-20) BUN (9-16) mg/dL Creatinine (0.5-1.4) mg/dL Estim Creat Clear Calc Estimated GFR Random Glucose (60-115) mg/dL Lactic Acid (0.5-2.0) mmol/L Calcium (8.4-10.2) mg/dL Total Bilirubin (0.0-1.0) mg/dL AST (5-31) U/L ALT (0-31) U/L Alkaline Phosphatase (39-117) U/L B-Natriuretic Peptide (<100) pg/mL Total Protein (6.5-8.0) g/dL Albumin (3.5-5.0) g/dL Lipase (8-78) U/L Urine Color YELLOW Urine Appearance CLOUDY Urine pH 6.0 (5.0-8.0) Ur Specific Kennedy >= 1.030 H (1.005-1.025) Urine Protein TRACE (NEG-TRACE) MG/DL Urine Glucose (UA) NEG (NEG) MG/DL Urine Ketones NEG (NEG) MG/DL Urine Blood NEG (NEG) Urine Nitrite POS H (NEG) Ur Leukocyte Esterase NEG (NEG) Urine RBC 0-2 (0) /HPF Urine WBC 5-9 H (0-4) /HPF Ur Squamous Epith Cells 1+ /LPF Urine Bacteria 2+ /LPF Urine Mucus TRACE /LPF COVID-19 (ANTHONY) Negative (Negative) COVID-19 Clin Com See Note ECG Data Attestation: I personally reviewed and interpreted this ECG as follows: Interpretation: 1224: Normal sinus rhythm rate of 91, normal MI interval QRS duration, prolonged QTC of 477 milliseconds, no ST segment elevation, no ST segment depression, no PACs no PVCs, no T-wave abnormalities, this is a normal EKG. Discharge Plan Discharge Clinical Impression: Intractable nausea and vomiting Pneumonia Qualifiers: Pneumonia type: due to unspecified organism Laterality: left Lung location: lower lobe of lung Qualified Code(s): J18.9 - Pneumonia, unspecified organism Back pain Qualifiers: Chronicity: acute Back pain laterality: midline Patient Disposition: Admitted As Inpatient
[2021-09-05] MEDS: Azithromycin 500 MG in 0.9 % Sodium Chloride 250 ML 125 MG IV (15:07)
--- NOTE | 2021-09-05 17:01 | PHA.MEDREC ---
Pharmacy Consult ? Medication Reconciliation Pharmacy has completed the medication reconciliation. Patient reports being too nausea to take her medication this AM. Patient reports only taking gemfibrozil once daily instead of twice daily. Lizzie Gatica, JenaeD
--- NOTE | 2021-09-05 17:23 | PM.IMHP ---
History of Present Illness Date of Service: 09/05/21 ?81-year-old female who presents emergency department for evaluation of nausea, vomiting, back pain and low O2 saturations in the 80% range.? Patient was seen here in the emergency department yesterday for back pain the patient does not report any injury.? She states that the pain came on gradually and started in her lower back and then moved her middle back.? She states the pain is now a constant, sharp pain which is 10/10 at its worst.? The patient does not have any radiation of the pain to her legs, numbness of her legs or weakness of her legs.? She denies loss of bowel or bladder control.? Yesterday in the emergency department she was treated with Dilaudid IV which caused her to have nausea and vomiting.? This was treated with Zofran IV and the patient did feel better and was discharged home.? The patient did have a CT scan of her abdomen pelvis yesterday degenerative changes throughout the spine with multilevel disc disease.? There was no acute abdominal finding. ER course WBC elevated at 13,100 thousand one hundred.? BNP is elevated at 378. Lactate was normal 1.0.? Chest x-ray is consistent with mild CHF and left retrocardiac infiltrate.? ABG on room air revealed pH of 7.38, pCO2 of 51, PO2 of 57, bicarb of 30 with O2 saturation of 85% on room air. Admit for treatment of same Review of Systems Review of Systems: Denies chest pain Admits to shortness of breath Admits to nausea vomiting no diarrhea PMFSH Medical History Arthritis COPD (chronic obstructive pulmonary disease) Hypertension Pertinent family history: . Social History Advance Directives: No Advance Directives Information Provided: No Meds Allergies Allergy/AdvReac Type Severity Reaction Status Date / Time mold [MOLD] Allergy Intermediate COUGHING, Verified 09/04/21 15:01 SINUS CONGESTION Penicillins [PENICILLINS] Allergy Intermediate REVERSE Verified 09/04/21 15:01 REACTION MAKES PT FEEL WORSE Active Medications: Current Medications Acetaminophen (Acetaminophen 325 Mg Tablet) 650 mg PO Q6H PRN PRN Reason: Pain, Mild (Pain Scale 1-3) Allopurinol (Allopurinol 100 Mg Tablet) 100 mg PO DAILY [facility] Diltiazem HCl (Diltiazem Hcl Cd 180 Mg Cap.Er.24h) 360 mg PO DAILY [facility]; Protocol Enoxaparin Sodium (Enoxaparin Sodium 40 Mg/0.4 Ml Syringe) 40 mg SUBCUT Q24H [facility] Fluticasone Propionate (Fluticasone Propionate Nasal 16 Gm [place]) 1 spray NOSTRIL-B BEDTIME [facility] Furosemide (Furosemide 40 Mg Tablet) 80 mg PO DAILY [facility]; Protocol Gemfibrozil (Gemfibrozil 600 Mg Tablet) 600 mg PO DAILY [facility] Loratadine (Loratadine 10 Mg Tablet) 10 mg PO BEDTIME [facility] Melatonin (Melatonin 3 Mg Tablet) 6 mg PO BEDTIME PRN PRN Reason: Insomnia Metformin HCl (Metformin Hcl Er 500 Mg Tab.Er.24h) 500 mg PO DAILY [facility] Methylprednisolone Sodium Succinate (Methylprednisolone Sod Succ 125 Mg/2 Ml Vial) 60 mg IVPUSH Q6H [facility] Metolazone (Metolazone 2.5 Mg Tablet) 2.5 mg PO Q48H [facility] Non-Formulary Medication (Meloxicam) 15 mg PO DAILY [facility] Non-Formulary Medication (Oxycodone-Acetaminophen [Percocet]) 1 tab PO TID PRN PRN Reason: pain Omeprazole (Omeprazole 20 Mg Capsule.Dr) 20 mg PO DAILY [facility] Pharmacy Consult (Consult Rx Perform Med Rec) 1 each MISCELLANE ONCE PRN PRN Reason: Consult order Pravastatin Sodium (Pravastatin Sodium 40 Mg Tablet) 40 mg PO BEDTIME [facility] Sodium Chloride (0.9 % Sodium Chloride Flush 3 Ml Syringe) 3 ml IVFLUSH QSHIFT [facility] Tizanidine HCl (Tizanidine Hcl 4 Mg Tablet) 4 mg PO BID [facility] Home Medications Medication Instructions Recorded Confirmed Last Taken Type allopurinol 100 mg tablet 100 mg PO DAILY 09/05/21 09/05/21 Unknown History clotrimazole-betamethasone 1 1 appl TOPICAL DAILY PRN 09/05/21 09/05/21 Unknown History %-0.05 % topical cream diltiazem HCl 360 mg capsule,24 360 mg PO DAILY 09/05/21 09/05/21 Unknown History hr,extended release (Tiadylt ER) fluticasone propionate 50 1 spray INTRANASAL BEDTIME 09/05/21 09/05/21 Unknown History mcg/actuation nasal spray,suspension furosemide 40 mg tablet 80 mg PO DAILY 09/05/21 09/05/21 Unknown History gemfibrozil 600 mg tablet 600 mg PO DAILY 09/05/21 09/05/21 Unknown History loratadine 10 mg tablet (Claritin) 10 mg PO BEDTIME 09/05/21 09/05/21 Unknown History meloxicam 15 mg tablet 15 mg PO DAILY 09/05/21 09/05/21 Unknown History metformin 500 mg tablet,extended 500 mg PO DAILY 09/05/21 09/05/21 Unknown History release 24 hr metolazone 2.5 mg tablet 2.5 mg PO Q48H 09/05/21 09/05/21 Unknown History omeprazole 20 mg capsule,delayed 20 mg PO DAILY 09/05/21 09/05/21 Unknown History release pravastatin 40 mg tablet 40 mg PO BEDTIME 09/05/21 09/05/21 Unknown History tizanidine 4 mg tablet 4 mg PO BID 09/05/21 09/05/21 Unknown History Physical Exam Vital Signs and Narrative: Vital Signs: Last Vital Signs Temp 98.9 F 09/05/21 15:24 Pulse 87 09/05/21 15:24 Resp 20 09/05/21 15:24 BP 149/81 H 09/05/21 15:24 Pulse Ox 94 09/05/21 15:24 Body Mass Index 49.9 Const: Other: Awake alert oriented x3 no acute distress. Able to speak in full sentences lying essentially supine HENMT: Other: Membranes moist oropharynx clear Resp: Other: Diminished breath sounds throughout with dense expiratory wheezes heard all tuttle scant crackles left base Cardio: Other: No S4; positive S1-S2; no S3 murmurs of gallops GI: Other: Obese soft nontender nondistended with normoactive bowel sounds Neuro: Other: Cranial nerves 2-12 grossly intact as tested. Motor is 5/5 all extremities. Sensation intact Extrem: Other: Bilateral lower extremity lymphedema Results Labs CBC and Chem 7: 09/05/21 12:09 09/05/21 12:09 Labs: Laboratory Results - last 24 hr 09/05/21 09/05/21 09/05/21 12:03 12:09 12:09 MCV 98.1 H MCH 31.2 MCHC 31.8 RDW 13.9 Plt Count 260 MPV 10.2 Immature Gran % (Auto) 0.5 H Neut % (Auto) 87.5 H Lymph % (Auto) 5.4 L [place] % (Auto) 6.3 Eos % (Auto) 0.1 Baso % (Auto) 0.2 Lymph # (Auto) 0.7 L [place] # (Auto) 0.8 Eos # (Auto) 0.0 Baso # (Auto) 0.0 Abs Immat Gran (auto) 0.06 H Absolute Neuts (auto) 11.47 H Absolute Nucleated RBC 0.000 Nucleated RBC % (auto) 0.0 D-Dimer < 200 O2 Saturation 85.0 ABG pH at Pt Temp 7.38 ABG pH (Temp Correct) 7.39 ABG pCO2 at Pt Temp 51 H ABG pCO2 (Temp Corrct 50 H ABG pO2 at Pt Temp 57 L ABG pO2 (Temp Correct 55 L ABG HCO3 30 H ABG Base Excess (Actual) 4.6 Anion Gap Estim Creat Clear Calc Estimated GFR Random Glucose Lactic Acid Calcium Total Bilirubin AST ALT Alkaline Phosphatase B-Natriuretic Peptide Total Protein Albumin Lipase Urine Color Urine Appearance Urine pH Ur Specific [place] Urine Protein Urine Glucose (UA) Urine Ketones Urine Blood Urine Nitrite Ur Leukocyte Esterase Urine RBC Urine WBC Ur Squamous Epith Cells Urine Bacteria Urine Mucus COVID-19 ([facility]) COVID-19 Clin Com 09/05/21 09/05/21 09/05/21 12:09 12:09 12:09 MCV MCH MCHC RDW Plt Count MPV Immature Gran % (Auto) Neut % (Auto) Lymph % (Auto) [place] % (Auto) Eos % (Auto) Baso % (Auto) Lymph # (Auto) [place] # (Auto) Eos # (Auto) Baso # (Auto) Abs Immat Gran (auto) Absolute Neuts (auto) Absolute Nucleated RBC Nucleated RBC % (auto) D-Dimer O2 Saturation ABG pH at Pt Temp ABG pH (Temp Correct) ABG pCO2 at Pt Temp ABG pCO2 (Temp Corrct ABG pO2 at Pt Temp ABG pO2 (Temp Correct ABG HCO3 ABG Base Excess (Actual) Anion Gap 14 Estim Creat Clear Calc 82.9 Estimated GFR > 60 Random Glucose 110 Lactic Acid 1.0 Calcium 9.0 Total Bilirubin 0.5 AST 25 ALT 15 Alkaline Phosphatase 96 B-Natriuretic Peptide 378 H Total Protein 7.5 Albumin 4.1 Lipase 38 Urine Color Urine Appearance Urine pH Ur Specific [place] Urine Protein Urine Glucose (UA) Urine Ketones Urine Blood Urine Nitrite Ur Leukocyte Esterase Urine RBC Urine WBC Ur Squamous Epith Cells Urine Bacteria Urine Mucus COVID-19 ([facility]) COVID-19 Clin Com 09/05/21 09/05/21 12:09 13:43 MCV MCH MCHC RDW Plt Count MPV Immature Gran % (Auto) Neut % (Auto) Lymph % (Auto) [place] % (Auto) Eos % (Auto) Baso % (Auto) Lymph # (Auto) [place] # (Auto) Eos # (Auto) Baso # (Auto) Abs Immat Gran (auto) Absolute Neuts (auto) Absolute Nucleated RBC Nucleated RBC % (auto) D-Dimer O2 Saturation ABG pH at Pt Temp ABG pH (Temp Correct) ABG pCO2 at Pt Temp ABG pCO2 (Temp Corrct ABG pO2 at Pt Temp ABG pO2 (Temp Correct ABG HCO3 ABG Base Excess (Actual) Anion Gap Estim Creat Clear Calc Estimated GFR Random Glucose Lactic Acid Calcium Total Bilirubin AST ALT Alkaline Phosphatase B-Natriuretic Peptide Total Protein Albumin Lipase Urine Color YELLOW Urine Appearance CLOUDY Urine pH 6.0 Ur Specific [place] >= 1.030 H Urine Protein TRACE Urine Glucose (UA) NEG Urine Ketones NEG Urine Blood NEG Urine Nitrite POS H Ur Leukocyte Esterase NEG Urine RBC 0-2 Urine WBC 5-9 H Ur Squamous Epith Cells 1+ Urine Bacteria 2+ Urine Mucus TRACE COVID-19 ([facility]) Negative COVID-19 Clin Com See Note Imaging Radiologist's Impressions: Impressions Chest X-Ray 09/05/21 11:37 IMPRESSION: 1. Mild pulmonary vascular congestion. 2. Subtle airspace opacity left retrocardiac region (airspace opacity versus atelectasis). Assessment and Plan (1) Pneumonia: Qualifiers: Laterality: left Lung location: lower lobe of lung Pneumonia type: due to unspecified organism Qualified Code(s): J18.9 - Pneumonia, unspecified organism Status: Acute (2) Intractable nausea and vomiting: Status: Acute 81-year-old female presents with intractable vomiting followed by progressive shortness of breath. Was seen in ER 09/05 and given pain medicine which preceded her nausea and vomiting. On presentation to the ER she was hypoxic and tachycardic x-ray consistent with mild CHF in infiltrate. She will be admitted for the same 1. Retrocardiac infiltrate Likely secondary to aspiration; will cover with azithromycin and ceftriaxone. Given extent of wheezing will add pulse dose steroids Titrate O2 to sats > 92% 2. CHF On Lasix and metolazone at home; will give 1 dose of IV Lasix and follow-up BNP in a.m.. Admit telemetry and follow troponins 3. Diabetes type 2 Will continue outpatient therapies and cover with sliding scale. Patient counseled that sugars will rise secondary to steroids 4. GERD Continue PPI as ordered 5. Chronic back pain Continue oxycodone as outpatient dosing Further plans based on clinical response and forthcoming data Full code/Lovenox Quality Stroke Does the patient have a stroke diagnosis?: No VTE Prior VTE?: No VTE Risk Level:: Medical - moderate - high VTE Device Contraindication: Treatment Not Indicated VTE Drug Contraindication: N/A - Med Ordered
[2021-09-05] MEDS: Furosemide 40 MG/4 ML VIAL IVPUSH (17:50)
[2021-09-05] MEDS: methylPREDNISolone Sod Succ 125 MG/2 ML VIAL 60 MG IVPUSH ×2 (17:52→23:27)
[2021-09-05] MEDS: Enoxaparin Sodium 40 MG/0.4 ML SYRINGE SUBCUT (17:53)
--- NOTE | 2021-09-05 17:57 | PC.NURSE ---
Patient A+Ox4. Home with hubs. C/o nausea. Patient hypoxic on RA. on 2L NC. No O2 at baseline. Able to stand and ambulate to bedside commode. Labs drawn and sent. IV placed and flushed. Meds given per JAN. VSS. NSR on tele. Resting safely.
[2021-09-05] MEDS: oxyCODONE HCl Immed Release 5 MG TABLET PO (18:41)
--- NOTE | 2021-09-05 19:27 | PC.NURSE ---
RN assumed care at 1900. Pt alert and oriented x4, calm and cooperative. Pt states 5/10 back pain at this time, states back pain is chronic medication taken for pain. Pt remains on 2 liters O2 nasal cannula at this time. Pt denies chest pain. Wet sounding cough noted, non-productive. Pt OOB to commode with 1 assist and tolerated well. Pt voiding without issues, denies pain or burning with urination. IV intact. Pt resting in stretcher at this time waiting to be admitted. Will continue to monitor.
[2021-09-05] MEDS: Loratadine 10 MG TABLET PO (20:18)
[2021-09-05] MEDS: NaPROXEN 500 MG TABLET PO (20:18)
[2021-09-05] MEDS: Pravastatin Sodium 40 MG TABLET PO (20:18)
[2021-09-05] MEDS: TiZANidine HCL 4 MG TABLET PO (20:18)
--- NOTE | 2021-09-05 21:37 | MHC.CM.PN ---
CM attempted to meet with admitted patient with bed assignment pending. Pt fast asleep. Recently medicated. Unable to complete CM assessment. CM to monitor for d/c needs.
[2021-09-05] MEDS: 0.9 % Sodium Chloride Flush 3 ML SYRINGE IVFLUSH (23:29)
[2021-09-05] MEDS: Melatonin 3 MG TABLET 6 MG PO (23:32)
[2021-09-05] MEDS: Acetaminophen 325 MG TABLET 650 MG PO (23:32)
[2021-09-06] VITALS (11 sets, daily range): BP systolic 132–168; BP diastolic 62–88; PULSE 88–97; RESP 16–20; TEMP 35.6–37.2; O2SAT 90–98; BMI 49.2
[2021-09-06] MEDS: oxyCODONE HCl Immed Release 5 MG TABLET PO ×2 (01:08→16:29)
--- NOTE | 2021-09-06 04:55 | PC.NURSE ---
PATIENT ADMITTED VIA STRETCHER FROM ED TO [place] [id number] AT 0310, PT ALERT AND ORIENTED, ASSISTED TO COMMODE THAN INTO BED. VITALS 97.2-88-20-154/80 AND 93% ON 3L/M N/C. STATING TO FEEL NAUSEA, NO VOMITING, HOWEVER, FEELING PASSED AND ABLE TO SETTLE IN BED WITH HOB. [facility] [facility] CALLED TO FLOOR PATIENT IS ON TELEMETRY MONITORING TO SAY SHE HAS A RHYTHM OF SR, FREQUENT PVC'S, AND BIGEMINY. THIS CARDIAC INFORMATION WAS PASSED VIA TIGER TEXT TO HOSPITALIST ON DUTY, NOTE WAS READ, AND MD RESPONDED THANK YOU. NO NEW ORDERS AND WILL CONTINUE TO MONITORY, PATIENT DENIES CHEST PAIN, PRESSURE, DIZZINESS OR FEELING SHORT OF BREATH AT THIS TIME
[2021-09-06 05:58] LABS: Eosinophils Percent Auto 0.1 % (0-4); Hematocrit 46.7 % (37.0-47.0); Hemoglobin 14.8 g/dl (12.0-16.0); Imm Gran Abs Auto 0.15 X10*3/uL (0.00-0.03); Imm Gran Pct Auto 1.7 % (0.0-0.4); Lymphocytes Absolute Auto 0.3 X10*3/uL (1.2-4.9); Lymphocytes Percent Auto 3.7 % (20-40); MANUAL DIFF FLAG SCAN; Mean Corpuscular HGB Conc 31.7 g/dl (31.0-35.0); Mean Corpuscular Volume 100.9 fL (80.0-98.0); Mean Platelet Volume 10.6 fL (9.4-12.3); Monocytes Absolute Auto 0.1 X10*3/uL (0.1-1.2); Monocytes Percent Auto 0.6 % (2-11); Neutrophils Absolute Auto 8.33 x10*3/uL (2.0-8.3); Neutrophils Percent Auto 93.9 % (45-73); Platelet Count 239 X10*3/uL (160-400); Red Blood Count 4.63 X10*6/uL (4.20-5.50); Red Cell Distribution Width 13.4 % (11.0-16.0); SCAN SMEAR FLAG 1; White Blood Count 8.9 X10*3/uL (4.8-10.8)
[2021-09-06] MEDS: methylPREDNISolone Sod Succ 125 MG/2 ML VIAL 60 MG IVPUSH ×4 (06:10→23:48)
[2021-09-06] MEDS: Omeprazole 20 MG CAPSULE.DR PO (06:10)
[2021-09-06 06:12] LABS: Anion Gap 14 (12-20); Blood Urea Nitrogen 12 mg/dL (9-16); Carbon Dioxide 29 mmol/L (22-29); Chloride 100 mmol/L (96-108); Creatinine Clr Calc Pharmacy 84.4; Estimated Glomerular Filt Rate > 60; Glucose Random 143 mg/dL (60-115); Potassium 4.3 mmol/L (3.3-5.1); Sodium 139 mmol/L (135-145)
[2021-09-06] MEDS: Acetaminophen 325 MG TABLET 650 MG PO (06:13)
[2021-09-06 06:18] LABS: SLIDE REVIEW VERIFIED
[2021-09-06] MEDS: dilTIAZem HCL CD 180 MG CAP.ER.24H 360 MG PO (09:33)
[2021-09-06] MEDS: allopurinoL 100 MG TABLET PO (09:34)
[2021-09-06] MEDS: gemfibroziL 600 MG TABLET PO (09:34)
[2021-09-06] MEDS: Furosemide 40 MG TABLET 80 MG PO (09:34)
[2021-09-06] MEDS: Ibuprofen 600 MG TABLET PO ×2 (09:35→20:41)
[2021-09-06] MEDS: TiZANidine HCL 4 MG TABLET PO ×2 (09:35→20:25)
[2021-09-06] MEDS: metFORMIN HCl ER 500 MG TAB.ER.24H PO (09:36)
[2021-09-06] MEDS: 0.9 % Sodium Chloride Flush 3 ML SYRINGE IVFLUSH ×3 (09:38→20:26)
--- NOTE | 2021-09-06 09:39 | MHC.CM.PN ---
IMM 09/06/21 FEMALE 81 DX ASP PNA She lives w her . She reports that she is independent with ADLs and ambulation. She is requiring O2 4L now. She does not have home O2. Discharge plan discussed with pt. She may need a VNA. Preference obtained and the referral was sent. She prefers [facility]. She had home care w [facility] PO TKA x2. DP home w [facility]. The patient will be transported to home by her at discharge.
--- NOTE | 2021-09-06 09:48 | MHC.CLN ---
NUTRITION ADDED 2 GRAM SODIUM TO DIET ORDER DUE TO CHF AND TAKES DIURETIC. DIET=DIABETIC 2000 KCAL, 2 GRAM SODIUM.
[2021-09-06] MEDS: Albuterol/Iprat 2.5/0.5MG 3 ML AMPUL.NEB INHALE ×3 (10:40→19:16)
[2021-09-06] MEDS: cefTRIAXone sodium 1 GM in 0.9 % Sodium Chloride 50 ML IV (12:13)
--- NOTE | 2021-09-06 12:39 | P.CDIC_ITS ---
CDI Concurrent Query Documentation Clarification: PHYSICIAN'S DOCUMENTATION REQUEST Date of Query: 09/06/21 1239 Patient Name: Izabel Edwards Admit Date: 09/05/21 Dear Doctor, A review of the medical record indicates additional documentation may be needed. Please review below and update the documentation accordingly. Clinical Indicators: Risk Factors/Clinical Indicators/Treatments Per H&P on 09/05/21: ?CHF ? ? On Lasix and metolazone at home; will give 1 dose of IV Lasix and follow-up BNP in a.m.. ? ? Admit telemetry and follow troponins BNP CXR: XR/XR chest 1V IMPRESSION: ? 1. Mild pulmonary vascular congestion. 2. Subtle airspace opacity left retrocar diac region (airspace opacity versus atelectasis). Please provide further specificity regarding the most likely type and acuity of CHF you are evaluating, treating, or monitoring. Examples include: Type: * Systolic * Diastolic * Combined Systolic/Diastolic * Other ? please specify * Unable to determine Acuity: * Acute * Other-please specify * Unable to determine Use of terms such as suspected, likely, concern for, or probable (associated with a specific diagnosis that is being evaluated, monitored, or treated as if it exists) are acceptable and can be coded in the inpatient setting, when documented at the time of discharge. Thank you, Leann Glass RN Extension: [phone] Please use your independent medical judgment in providing your response. THIS QUERY IS PART OF THE PERMANENT MEDICAL RECORD Provider Response: Other Other Diagnosis: Acute on chronic systolic CHF
--- NOTE | 2021-09-06 13:16 | P.PNIM_ITS ---
Subjective Subjective Date of Service: 09/06/21 Interval History: Breathing somewhat improved overnight. With still not at baseline per patient. Review of Systems Denies chest pain Denies shortness of breath Denies nausea vomiting diarrhea Physical Exam Vital Signs: Vital Signs: Last Vital Signs Temp 96.1 F L 09/06/21 11:58 Pulse 89 09/06/21 11:58 Resp 18 09/06/21 11:58 BP 132/73 09/06/21 11:58 Pulse Ox 90 L 09/06/21 11:58 Body Mass Index 49.2 Const: Other: Awake alert oriented x3 no acute distress. Able to speak in full sentences lying essentially supine HENMT: Other: Membranes moist oropharynx clear Resp: Other: Diminished breath sounds throughout with dense expiratory wheezes heard all tuttle scant crackles left base Cardio: Other: No S4; positive S1-S2; no S3 murmurs of gallops GI: Other: Obese soft nontender nondistended with normoactive bowel sounds Neuro: Other: Cranial nerves 2-12 grossly intact as tested. Motor is 5/5 all extremities. Sensation intact Extrem: Other: Bilateral lower extremity lymphedema Objective Data Active Medications Acetaminophen (Acetaminophen 325 Mg Tablet) 650 mg PO Q6H PRN PRN Reason: Pain, Mild (Pain Scale 1-3) Last Admin: 09/06/21 06:13 Dose: 650 mg Documented by: GENI Albuterol/Ipratropium (Albuterol/Iprat 2.5/0.5mg 3 Ml Ampul.Neb) 3 ml INHALE RQ4H WHILE AWAKE [facility] Last Admin: 09/06/21 10:40 Dose: 3 ml Documented by: JANINE Allopurinol (Allopurinol 100 Mg Tablet) 100 mg PO DAILY [facility] Last Admin: 09/06/21 09:34 Dose: 100 mg Documented by: HARSHIL Diltiazem HCl (Diltiazem Hcl Cd 180 Mg Cap.Er.24h) 360 mg PO DAILY [facility]; Protocol Last Admin: 09/06/21 09:33 Dose: 360 mg Documented by: HARSHIL Enoxaparin Sodium (Enoxaparin Sodium 40 Mg/0.4 Ml Syringe) 40 mg SUBCUT Q24H [facility] Last Admin: 09/05/21 17:53 Dose: 40 mg Documented by: JIM Fluticasone Propionate (Fluticasone Propionate Nasal 16 Gm Arp) 1 spray NOSTRIL-B BEDTIME [facility] Last Admin: 09/05/21 20:20 Dose: Not Given Documented by: LINDSEY Non-Admin Reason: Patient Refused Furosemide (Furosemide 40 Mg Tablet) 80 mg PO DAILY [facility]; Protocol Last Admin: 09/06/21 09:34 Dose: 80 mg Documented by: HARSHIL Gemfibrozil (Gemfibrozil 600 Mg Tablet) 600 mg PO DAILY [facility] Last Admin: 09/06/21 09:34 Dose: 600 mg Documented by: HARSHIL Ceftriaxone Sodium 1 gm/ (Sodium Chloride) 50 mls @ 100 mls/hr IV Q24H [facility] Last Infusion: 09/06/21 12:53 Dose: 0 mls/hr Documented by: HARSHIL Azithromycin 500 mg/ Sodium (Chloride) 250 mls @ 125 mls/hr IV Q24H [facility] Ibuprofen (Ibuprofen 600 Mg Tablet) 600 mg PO Q6H PRN PRN Reason: Pain, Mild (Pain Scale 1-3) Last Admin: 09/06/21 09:35 Dose: 600 mg Documented by: HARSHIL Loratadine (Loratadine 10 Mg Tablet) 10 mg PO BEDTIME [facility] Last Admin: 09/05/21 20:18 Dose: 10 mg Documented by: LINDSEY Melatonin (Melatonin 3 Mg Tablet) 6 mg PO BEDTIME PRN PRN Reason: Insomnia Last Admin: 09/05/21 23:32 Dose: 6 mg Documented by: LINDSEY Metformin HCl (Metformin Hcl Er 500 Mg Tab.Er.24h) 500 mg PO DAILY [facility] Last Admin: 09/06/21 09:36 Dose: 500 mg Documented by: HARSHIL Methylprednisolone Sodium Succinate (Methylprednisolone Sod Succ 125 Mg/2 Ml Vial) 60 mg IVPUSH Q6H [facility] Last Admin: 09/06/21 12:12 Dose: 60 mg Documented by: HARSHIL Metolazone (Metolazone 2.5 Mg Tablet) 2.5 mg PO Q48H [facility] Omeprazole (Omeprazole 20 Mg Capsule.Dr) 20 mg PO DAILY@0630 [facility] Last Admin: 09/06/21 06:10 Dose: 20 mg Documented by: GENI Oxycodone HCl (Oxycodone Hcl Immed Release 5 Mg Tablet) 5 mg PO TID PRN PRN Reason: Pain, Severe (Pain Scale 7-10) Last Admin: 09/06/21 01:08 Dose: 5 mg Documented by: DONNA Pharmacy Consult (Consult Rx Perform Med Rec) 1 each MISCELLANE ONCE PRN PRN Reason: Consult order Pravastatin Sodium (Pravastatin Sodium 40 Mg Tablet) 40 mg PO BEDTIME [facility] Last Admin: 09/05/21 20:18 Dose: 40 mg Documented by: LINDSEY Sodium Chloride (0.9 % Sodium Chloride Flush 3 Ml Syringe) 3 ml IVFLUSH QSHIFT [facility] Last Admin: 09/06/21 09:38 Dose: 3 ml Documented by: HARSHIL Tizanidine HCl (Tizanidine Hcl 4 Mg Tablet) 4 mg PO BID [facility] Last Admin: 09/06/21 09:35 Dose: 4 mg Documented by: HARSHIL Labs CBC & Chem 7: 09/06/21 05:26 09/06/21 05:26 Labs: Laboratory Results - last 24 hr 09/05/21 09/06/21 09/06/21 13:43 05:26 05:26 MCV 100.9 H MCH 32.0 MCHC 31.7 RDW 13.4 Plt Count 239 MPV 10.6 Immature Gran % (Auto) 1.7 H Neut % (Auto) 93.9 H Lymph % (Auto) 3.7 L [place] % (Auto) 0.6 L Eos % (Auto) 0.1 Baso % (Auto) 0.0 Lymph # (Auto) 0.3 L [place] # (Auto) 0.1 Eos # (Auto) 0.0 Baso # (Auto) 0.0 Abs Immat Gran (auto) 0.15 H Absolute Neuts (auto) 8.33 H Absolute Nucleated RBC 0.000 Nucleated RBC % (auto) 0.0 Smear Tech's Comments VERIFIED Anion Gap 14 Estim Creat Clear Calc 84.4 Estimated GFR > 60 Random Glucose 143 H Calcium 9.0 Urine Color YELLOW Urine Appearance CLOUDY Urine pH 6.0 Ur Specific [place] >= 1.030 H Urine Protein TRACE Urine Glucose (UA) NEG Urine Ketones NEG Urine Blood NEG Urine Nitrite POS H Ur Leukocyte Esterase NEG Urine RBC 0-2 Urine WBC 5-9 H Ur Squamous Epith Cells 1+ Urine Bacteria 2+ Urine Mucus TRACE Assessment and Plan (1) Pneumonia: Status: Acute (2) Intractable nausea and vomiting: Status: Acute Assessment and Plan: 81-year-old female presents with intractable vomiting followed by progressive shortness of breath. Was seen in ER 09/05 and given pain medicine which preceded her nausea and vomiting. On presentation to the ER she was hypoxic and tachycardic x-ray consistent with mild CHF and infiltrate. Some improvement overnight; still with O2 requirement 1. Retrocardiac infiltrate Likely secondary to aspiration; will cover with azithromycin and ceftriaxone/steroids Titrate O2 to sats > 92% 2. CHF (acute on chronic systolic) On Lasix and metolazone at home; continue same BNP in a.m. 3. Diabetes type 2 Will continue outpatient therapies and cover with sliding scale. Patient counseled that sugars will rise secondary to steroids 4. GERD Continue PPI as ordered 5. Chronic back pain Continue oxycodone as outpatient dosing Further plans based on clinical response and forthcoming data Full code/Lovenox Quality Stroke Does the patient have a stroke diagnosis?: No VTE Prior VTE?: No VTE Risk Level:: Medical - moderate - high VTE Device Contraindication: Treatment Not Indicated VTE Drug Contraindication: N/A - Med Ordered
[2021-09-06] MEDS: Azithromycin 500 MG in 0.9 % Sodium Chloride 250 ML 125 MG IV (14:44)
[2021-09-06] MEDS: Enoxaparin Sodium 40 MG/0.4 ML SYRINGE SUBCUT (17:16)
[2021-09-06] MEDS: Pravastatin Sodium 40 MG TABLET PO (20:25)
[2021-09-06] MEDS: Fluticasone Propionate Nasal 16 GM SPRAY 1 SPRAY NOSTRIL-B (20:26)
[2021-09-06] MEDS: Loratadine 10 MG TABLET PO (20:26)
[2021-09-07] VITALS (11 sets, daily range): BP systolic 114–166; BP diastolic 61–91; PULSE 80–93; RESP 16–18; TEMP 36.1–36.9; O2SAT 90–96
[2021-09-07] MEDS: oxyCODONE HCl Immed Release 5 MG TABLET PO ×3 (04:41→21:36)
[2021-09-07 05:44] LABS: Basophils Percent Auto 0.1 % (0-2); Eosinophils Percent Auto 0.1 % (0-4); Hematocrit 43.7 % (37.0-47.0); Hemoglobin 14.3 g/dl (12.0-16.0); Imm Gran Abs Auto 0.06 X10*3/uL (0.00-0.03); Imm Gran Pct Auto 0.6 % (0.0-0.4); Lymphocytes Absolute Auto 0.4 X10*3/uL (1.2-4.9); Lymphocytes Percent Auto 3.9 % (20-40); MANUAL DIFF FLAG SCAN; Mean Corpuscular HGB Conc 32.7 g/dl (31.0-35.0); Mean Corpuscular Hemoglobin 31.8 pg (27.0-33.0); Mean Corpuscular Volume 97.1 fL (80.0-98.0); Mean Platelet Volume 10.6 fL (9.4-12.3); Monocytes Absolute Auto 0.2 X10*3/uL (0.1-1.2); Neutrophils Absolute Auto 9.93 x10*3/uL (2.0-8.3); Neutrophils Percent Auto 93.3 % (45-73); Platelet Count 254 X10*3/uL (160-400); Red Cell Distribution Width 13.3 % (11.0-16.0); SCAN SMEAR FLAG 1; White Blood Count 10.6 X10*3/uL (4.8-10.8)
[2021-09-07 05:54] LABS: Anion Gap 12 (12-20); Blood Urea Nitrogen 17 mg/dL (9-16); Calcium 9.1 mg/dL (8.4-10.2); Carbon Dioxide 29 mmol/L (22-29); Chloride 101 mmol/L (96-108); Creatinine Clr Calc Pharmacy 79.1; Estimated Glomerular Filt Rate > 60; Glucose Random 156 mg/dL (60-115); Sodium 138 mmol/L (135-145)
[2021-09-07] MEDS: Omeprazole 20 MG CAPSULE.DR PO (05:57)
[2021-09-07] MEDS: methylPREDNISolone Sod Succ 125 MG/2 ML VIAL 60 MG IVPUSH ×3 (05:57→17:16)
[2021-09-07 06:13] LABS: SLIDE REVIEW VERIFIED
[2021-09-07] MEDS: Albuterol/Iprat 2.5/0.5MG 3 ML AMPUL.NEB INHALE ×4 (07:50→20:03)
[2021-09-07] MEDS: metFORMIN HCl ER 500 MG TAB.ER.24H PO (09:24)
[2021-09-07] MEDS: allopurinoL 100 MG TABLET PO (09:24)
[2021-09-07] MEDS: TiZANidine HCL 4 MG TABLET PO ×2 (09:24→21:35)
[2021-09-07] MEDS: 0.9 % Sodium Chloride Flush 3 ML SYRINGE IVFLUSH ×2 (09:24→17:16)
[2021-09-07] MEDS: Furosemide 40 MG TABLET 80 MG PO (09:24)
[2021-09-07] MEDS: dilTIAZem HCL CD 180 MG CAP.ER.24H 360 MG PO (09:25)
[2021-09-07] MEDS: metOLazone 2.5 MG TABLET PO (09:25)
[2021-09-07] MEDS: Ibuprofen 600 MG TABLET PO ×2 (09:32→21:35)
[2021-09-07] MEDS: gemfibroziL 600 MG TABLET PO (09:36)
[2021-09-07] MEDS: cefTRIAXone sodium 1 GM in 0.9 % Sodium Chloride 50 ML IV (13:28)
[2021-09-07] MEDS: Azithromycin 500 MG in 0.9 % Sodium Chloride 250 ML 125 MG IV (14:20)
--- NOTE | 2021-09-07 14:26 | P.PNIM_ITS ---
Subjective Subjective Date of Service: 09/07/21 Interval History: Breathing somewhat improved overnight. With still not at baseline per patient. Review of Systems Denies chest pain Denies shortness of breath Denies nausea vomiting diarrhea Physical Exam Vital Signs: Vital Signs: Last Vital Signs Temp 97.4 F 09/07/21 12:00 Pulse 83 09/07/21 12:00 Resp 18 09/07/21 12:00 BP 138/64 09/07/21 12:00 Pulse Ox 92 09/07/21 12:00 Body Mass Index 49.2 Const: Other: Awake alert oriented x3 no acute distress. HENMT: Other: Membranes moist oropharynx clear Resp: Other: Diminished breath sounds throughout with expiratory wheezes heard all tuttle scant Cardio: Other: No S4; positive S1-S2; no S3 murmurs of gallops GI: Other: Obese soft nontender nondistended with normoactive bowel sounds Neuro: Other: Cranial nerves 2-12 grossly intact as tested. Motor is 5/5 all extremities. Sensation intact Extrem: Other: Bilateral lower extremity lymphedema Objective Data Active Medications Acetaminophen (Acetaminophen 325 Mg Tablet) 650 mg PO Q6H PRN PRN Reason: Pain, Mild (Pain Scale 1-3) Last Admin: 09/06/21 06:13 Dose: 650 mg Documented by: GENI Albuterol/Ipratropium (Albuterol/Iprat 2.5/0.5mg 3 Ml Ampul.Neb) 3 ml INHALE RQ4H WHILE AWAKE [facility] Last Admin: 09/07/21 11:25 Dose: 3 ml Documented by: LISA Allopurinol (Allopurinol 100 Mg Tablet) 100 mg PO DAILY [facility] Last Admin: 09/07/21 09:24 Dose: 100 mg Documented by: ALEXANDRIA Diltiazem HCl (Diltiazem Hcl Cd 180 Mg Cap.Er.24h) 360 mg PO DAILY [facility]; Protocol Last Admin: 09/07/21 09:25 Dose: 360 mg Documented by: ALEXANDRIA Enoxaparin Sodium (Enoxaparin Sodium 40 Mg/0.4 Ml Syringe) 40 mg SUBCUT Q24H [facility] Last Admin: 09/06/21 17:16 Dose: 40 mg Documented by: DEANA Fluticasone Propionate (Fluticasone Propionate Nasal 16 Gm [place]) 1 spray NOSTR IL-B BEDTIME [facility] Last Admin: 09/06/21 20:26 Dose: 1 spray Documented by: JOAQUIN Furosemide (Furosemide 40 Mg Tablet) 80 mg PO DAILY [facility]; Protocol Last Admin: 09/07/21 09:24 Dose: 80 mg Documented by: ALEXANDRIA Gemfibrozil (Gemfibrozil 600 Mg Tablet) 600 mg PO DAILY [facility] Last Admin: 09/07/21 09:36 Dose: 600 mg Documented by: ALEXANDRIA Ceftriaxone Sodium 1 gm/ (Sodium Chloride) 50 mls @ 100 mls/hr IV Q24H [facility] Last Infusion: 09/07/21 14:03 Dose: 0 mls/hr Documented by: ALEXANDRIA Azithromycin 500 mg/ Sodium (Chloride) 250 mls @ 125 mls/hr IV Q24H [facility] Last Infusion: 09/06/21 16:51 Dose: 0 mls/hr Documented by: DEANA Ibuprofen (Ibuprofen 600 Mg Tablet) 600 mg PO Q6H PRN PRN Reason: Pain, Mild (Pain Scale 1-3) Last Admin: 09/07/21 09:32 Dose: 600 mg Documented by: ALEXANDRIA Loratadine (Loratadine 10 Mg Tablet) 10 mg PO BEDTIME [facility] Last Admin: 09/06/21 20:26 Dose: 10 mg Documented by: JOAQUIN Melatonin (Melatonin 3 Mg Tablet) 6 mg PO BEDTIME PRN PRN Reason: Insomnia Last Admin: 09/05/21 23:32 Dose: 6 mg Documented by: LINDSEY Metformin HCl (Metformin Hcl Er 500 Mg Tab.Er.24h) 500 mg PO DAILY [facility] Last Admin: 09/07/21 09:24 Dose: 500 mg Documented by: ALEXANDRIA Methylprednisolone Sodium Succinate (Methylprednisolone Sod Succ 125 Mg/2 Ml Vial) 60 mg IVPUSH Q6H [facility] Last Admin: 09/07/21 13:27 Dose: 60 mg Documented by: ALEXANDRIA Metolazone (Metolazone 2.5 Mg Tablet) 2.5 mg PO Q48H [facility] Last Admin: 09/07/21 09:25 Dose: 2.5 mg Documented by: ALEXANDRIA Omeprazole (Omeprazole 20 Mg Capsule.Dr) 20 mg PO DAILY@0630 [facility] Last Admin: 09/07/21 05:57 Dose: 20 mg Documented by: JOAQUIN Oxycodone HCl (Oxycodone Hcl Immed Release 5 Mg Tablet) 5 mg PO TID PRN PRN Reason: Pain, Severe (Pain Scale 7-10) Last Admin: 09/07/21 13:36 Dose: 5 mg Documented by: ALEXANDRIA Pharmacy Consult (Consult Rx Perform Med Rec) 1 each MISCELLANE ONCE PRN PRN Reason: Consult order Pravastatin Sodium (Pravastatin Sodium 40 Mg Tablet) 40 mg PO BEDTIME [facility] Last Admin: 09/06/21 20:25 Dose: 40 mg Documented by: JOAQUIN Sodium Chloride (0.9 % Sodium Chloride Flush 3 Ml Syringe) [address] [facility] Last Admin: 09/07/21 09:24 Dose: 3 ml Documented by: ALEXANDRIA Tizanidine HCl (Tizanidine Hcl 4 Mg Tablet) 4 mg PO BID [facility] Last Admin: 09/07/21 09:24 Dose: 4 mg Documented by: ALEXANDRIA Labs CBC & Chem 7: 09/07/21 05:23 09/07/21 05:23 Labs: Laboratory Results - last 24 hr 09/07/21 09/07/21 05:23 05:23 MCV 97.1 MCH 31.8 MCHC 32.7 RDW 13.3 Plt Count 254 MPV 10.6 Immature Gran % (Auto) 0.6 H Neut % (Auto) 93.3 H Lymph % (Auto) 3.9 L [place] % (Auto) 2.0 Eos % (Auto) 0.1 Baso % (Auto) 0.1 Lymph # (Auto) 0.4 L [place] # (Auto) 0.2 Eos # (Auto) 0.0 Baso # (Auto) 0.0 Abs Immat Gran (auto) 0.06 H Absolute Neuts (auto) 9.93 H Absolute Nucleated RBC 0.000 Nucleated RBC % (auto) 0.0 Smear Tech's Comments VERIFIED Anion Gap 12 Estim Creat Clear Calc 79.1 Estimated GFR > 60 Random Glucose 156 H Calcium 9.1 Microbiology Microbiology Results: Microbiology 09/05/21 12:09 Blood Culture - Preliminary Blood - Venous No growth after 48 hours. 09/05/21 12:09 Blood Culture - Preliminary Blood - Venous No growth after 48 hours. Assessment and Plan (1) Pneumonia: Status: Acute Assessment and Plan: 81-year-old female presents with intractable vomiting followed by progressive shortness of breath. Was seen in ER 09/05 and given pain medicine which preceded her nausea and vomiting. On presentation to the ER she was hypoxic and tachycardic x-ray consistent with mild CHF and infiltrate. 1. Retrocardiac infiltrate Responding to steroids. Still with mild shortness of breath with minimal ambulation. Continue current therapies Titrate O2 to sats > 92% 2. CHF (acute on chronic systolic) On Lasix and metolazone at home; continue same 3. Diabetes type 2 Will continue outpatient therapies and cover with sliding scale. Patient counseled that sugars will rise secondary to steroids 4. GERD Continue PPI as ordered 5. Chronic back pain Continue oxycodone as outpatient dosing Further plans based on clinical response and forthcoming data Full code/Lovenox Quality Stroke Does the patient have a stroke diagnosis?: No VTE Prior VTE?: No VTE Risk Level:: Medical - moderate - high VTE Device Contraindication: Treatment Not Indicated VTE Drug Contraindication: N/A - Med Ordered
[2021-09-07] MEDS: Enoxaparin Sodium 40 MG/0.4 ML SYRINGE SUBCUT (17:16)
[2021-09-07] MEDS: Loratadine 10 MG TABLET PO (21:35)
[2021-09-07] MEDS: Pravastatin Sodium 40 MG TABLET PO (21:35)
[2021-09-07] MEDS: Melatonin 3 MG TABLET 6 MG PO (21:35)
[2021-09-07] MEDS: Fluticasone Propionate Nasal 16 GM SPRAY 1 SPRAY NOSTRIL-B (21:41)
[2021-09-08] VITALS (8 sets, daily range): BP systolic 128–169; BP diastolic 61–81; PULSE 62–88; RESP 16–18; TEMP 36.4–36.8; O2SAT 83–96
[2021-09-08] MEDS: methylPREDNISolone Sod Succ 125 MG/2 ML VIAL 60 MG IVPUSH ×3 (00:07→12:47)
[2021-09-08] MEDS: 0.9 % Sodium Chloride Flush 3 ML SYRINGE IVFLUSH ×2 (00:08→10:04)
[2021-09-08] MEDS: Ibuprofen 600 MG TABLET PO ×2 (05:36→13:54)
[2021-09-08] MEDS: oxyCODONE HCl Immed Release 5 MG TABLET PO ×2 (05:37→13:55)
[2021-09-08] MEDS: Omeprazole 20 MG CAPSULE.DR PO (05:37)
[2021-09-08 05:40] LABS: Basophils Percent Auto 0.1 % (0-2); Hematocrit 42.7 % (37.0-47.0); Imm Gran Abs Auto 0.05 X10*3/uL (0.00-0.03); Imm Gran Pct Auto 0.4 % (0.0-0.4); Lymphocytes Absolute Auto 0.4 X10*3/uL (1.2-4.9); Lymphocytes Percent Auto 3.1 % (20-40); MANUAL DIFF FLAG SCAN; Mean Corpuscular HGB Conc 32.8 g/dl (31.0-35.0); Mean Corpuscular Hemoglobin 30.8 pg (27.0-33.0); Mean Corpuscular Volume 93.8 fL (80.0-98.0); Mean Platelet Volume 10.9 fL (9.4-12.3); Monocytes Absolute Auto 0.2 X10*3/uL (0.1-1.2); Monocytes Percent Auto 1.9 % (2-11); Neutrophils Absolute Auto 10.9 x10*3/uL (2.0-8.3); Neutrophils Percent Auto 94.5 % (45-73); Platelet Count 245 X10*3/uL (160-400); Red Blood Count 4.55 X10*6/uL (4.20-5.50); Red Cell Distribution Width 13.3 % (11.0-16.0); SCAN SMEAR FLAG 1; White Blood Count 11.5 X10*3/uL (4.8-10.8)
[2021-09-08 06:07] LABS: Anion Gap 14 (12-20); Blood Urea Nitrogen 29 mg/dL (9-16); Carbon Dioxide 30 mmol/L (22-29); Chloride 96 mmol/L (96-108); Creatinine Clr Calc Pharmacy 66.6; Estimated Glomerular Filt Rate 57; Glucose Random 161 mg/dL (60-115); Potassium 3.1 mmol/L (3.3-5.1); Sodium 137 mmol/L (135-145)
[2021-09-08 06:20] LABS: B Type Natriuretic Peptide 197 pg/mL (<100)
[2021-09-08 07:45] LABS: SLIDE REVIEW VERIFIED
[2021-09-08 07:52] LABS: Glucose, Whole Blood 163 mg/dL (60-115)
[2021-09-08] MEDS: Albuterol/Iprat 2.5/0.5MG 3 ML AMPUL.NEB INHALE ×3 (08:04→14:56)
[2021-09-08] MEDS: Potassium Chloride/H20 10 MEQ/100 ML PIGGYBACK 100 MEQ IV ×4 (10:02→13:39)
[2021-09-08] MEDS: gemfibroziL 600 MG TABLET PO (10:02)
[2021-09-08] MEDS: metFORMIN HCl ER 500 MG TAB.ER.24H PO (10:02)
[2021-09-08] MEDS: TiZANidine HCL 4 MG TABLET PO (10:02)
[2021-09-08] MEDS: allopurinoL 100 MG TABLET PO (10:03)
[2021-09-08] MEDS: Furosemide 40 MG TABLET 80 MG PO (10:03)
[2021-09-08] MEDS: dilTIAZem HCL CD 180 MG CAP.ER.24H 360 MG PO (10:03)
[2021-09-08 11:38] LABS: Glucose, Whole Blood 211 mg/dL (60-115)
--- NOTE | 2021-09-08 14:08 | P.DS_ITS ---
DS: Providers Provider Date of Service: 09/08/21 Date of admission: 09/05/21 16:22 Primary care physician: Jovanny Carter MD DS: Diagnosis Discharge Diagnosis (1) Pneumonia: Status: Acute DS: Summary Hospital Course Hospital Course: 81-year-old female who presents emergency department for evaluation of nausea, vomiting, back pain and low O2 saturations in the 80% range.? Patient was seen here in the emergency department yesterday for back pain the patient does not re port any injury.? She states that the pain came on gradually and started in her lower back and then moved her middle back.? She states the pain is now a constant, sharp pain which is 10/10 at its worst.? The patient does not have any radiation of the pain to her legs, numbness of her legs or weakness of her legs.? She denies loss of bowel or bladder control.? Yesterday in the emergency department she was treated with Dilaudid IV which caused her to have nausea and vomiting.? This was treated with Zofran IV and the patient did feel better and was discharged home.? The patient did have a CT scan of her abdomen pelvis yesterday degenerative changes throughout the spine with multilevel disc disease.? There was no acute abdominal finding. ER course WBC elevated at 13,100 thousand one hundred.? BNP is elevated at 378. Lactate was normal 1.0.? Chest x-ray is consistent with mild CHF and left retrocardiac infiltrate.? ABG on room air revealed pH of 7.38, pCO2 of 51, PO2 of 57, bicarb of 30 with O2 saturation of 85% on room air.? Admit for treatment of same Hospital course Patient admitted to the floor; given IV ceftriaxone and azithromycin along with pulse dose steroids. Over the course of next 48 hours she continued to improve and on the day of discharge she is anxious to leave. She was screen by Respiratory therapy and found that she qualifies for home O2 at 2 liters/minute. She is comfortable with home O2 and will be discharged on same. She can follow-up with her PCP in 2 weeks to follow up need for continuous O2 Time Spent with Patient Time attestation: Total time spent providing and/or coordinating discharge services: Discharge coordination time: Greater than 30 minutes Quality: Stroke Does the patient have a stroke diagnosis?: No Physical Exam Vital Signs: Vital Signs: Last Vital Signs Temp 98.2 F 09/08/21 11:22 Pulse 70 09/08/21 11:41 Resp 18 09/08/21 11:22 BP 128/61 09/08/21 11:22 Pulse Ox 94 09/08/21 11:22 Body Mass Index 49.2 Const: Other: Awake alert oriented x3 no acute distress. HENMT: Other: Membranes moist oropharynx clear Resp: Other: Diminished breath sounds throughout with expiratory wheezes heard all tuttle scant Cardio: Other: No S4; positive S1-S2; no S3 murmurs of gallops GI: Other: Obese soft nontender nondistended with normoactive bowel sounds Neuro: Other: Cranial nerves 2-12 grossly intact as tested. Motor is 5/5 all extremities. Sensation intact Extrem: Other: Bilateral lower extremity lymphedema DS: Data Data Completed and Pending Labs on day of discharge: Laboratory Results - last 24 hr 09/08/21 09/08/21 09/08/21 05:16 05:16 05:16 WBC 11.5 H RBC 4.55 Hgb 14.0 Hct 42.7 MCV 93.8 MCH 30.8 MCHC 32.8 RDW 13.3 Plt Count 245 MPV 10.9 Immature Gran % (Auto) 0.4 Neut % (Auto) 94.5 H Lymph % (Auto) 3.1 L [place] % (Auto) 1.9 L Eos % (Auto) 0.0 Baso % (Auto) 0.1 Lymph # (Auto) 0.4 L [place] # (Auto) 0.2 Eos # (Auto) 0.0 Baso # (Auto) 0.0 Abs Immat Gran (auto) 0.05 H Absolute Neuts (auto) 10.9 H Absolute Nucleated RBC 0.000 Nucleated RBC % (auto) 0.0 Smear Tech's Comments VERIFIED Sodium 137 Potassium 3.1 L D Chloride 96 Carbon Dioxide 30 H Anion Gap 14 BUN 29 H D Creatinine 0.95 Estim Creat Clear Calc 66.6 Estimated GFR 57 POC Glucose Random Glucose 161 H Calcium 9.0 B-Natriuretic Peptide 197 H 09/08/21 09/08/21 07:33 11:21 WBC RBC Hgb Hct MCV MCH MCHC RDW Plt Count MPV Immature Gran % (Auto) Neut % (Auto) Lymph % (Auto) [place] % (Auto) Eos % (Auto) Baso % (Auto) Lymph # (Auto) [place] # (Auto) Eos # (Auto) Baso # (Auto) Abs Immat Gran (auto) Absolute Neuts (auto) Absolute Nucleated RBC Nucleated RBC % (auto) Smear Tech's Comments Sodium Potassium Chloride Carbon Dioxide Anion Gap BUN Creatinine Estim Creat Clear Calc Estimated GFR POC Glucose 163 H 211 H Random Glucose Calcium B-Natriuretic Peptide Preliminary micro results at discharge 09/05/21 12:09 Blood Culture - Preliminary Blood - Venous No growth after 48 hours. 09/05/21 12:09 Blood Culture - Preliminary Blood - Venous No growth after 48 hours. Discharge Plan Discharge Patient Disposition: Home, Self-Care Discharge Diagnosis: Pneumonia Referrals: Jovanny Carter MD [Primary Care Provider] - 1 Week Discharge Medications: New cefuroxime axetil 250 mg tablet 250 mg PO BID 10 Days Qty: 20 RF: 0 prednisone 10 mg tablet See Rx Instructions .Route .COMPLEX Qty: 45 RF: 0 Continued oxycodone-acetaminophen [Percocet] 5-325 mg tablet 1 tab PO TID PRN (Reason: pain) Qty: 14 RF: 0 ondansetron HCl [Zofran] 4 mg tablet 4 mg PO Q8H PRN (Reason: nausea and vomiting) Qty: 10 RF: 0 furosemide 40 mg tablet 80 mg PO DAILY RF: 0 metolazone 2.5 mg tablet 2.5 mg PO Q48H RF: 0 pravastatin 40 mg tablet 40 mg PO BEDTIME RF: 0 tizanidine 4 mg tablet 4 mg PO BID RF: 0 meloxicam 15 mg tablet 15 mg PO DAILY RF: 0 diltiazem HCl [Tiadylt ER] 360 mg capsule,extended release 24 hr 360 mg PO DAILY RF: 0 allopurinol 100 mg tablet 100 mg PO DAILY RF: 0 gemfibrozil 600 mg tablet 600 mg PO DAILY RF: 0 clotrimazole-betamethasone 1-0.05 % cream 1 appl topical DAILY PRN (Reason: Rash) RF: 0 omeprazole 20 mg capsule,delayed release(DR/EC) 20 mg PO DAILY RF: 0 fluticasone propionate 50 mcg/actuation [place],Suspension 1 spray INTRANASAL BEDTIME RF: 0 metformin 500 mg tablet extended release 24 hr 500 mg PO DAILY RF: 0 loratadine [Claritin] 10 mg Tablet 10 mg PO BEDTIME RF: 0 Discharge Orders: Discharge Order (Routine); Ordered 09/08/21 Ordered By: Andres Guthrie Diet: advance to usual diet Activity on Discharge: As tolerated Stand Alone Forms: Patient Portal Discharge page Care Plan Goals: Home O2 at 2 liters/minute. Follow-up with Dr. Carter to reassess need for continuous O2 Health Concerns: Complete course of Ceftin as ordered Plan of Treatment: Ceftin twice a day 10 days supplemental O2 Assessment: Improves
[2021-09-08] MEDS: cefTRIAXone sodium 1 GM in 0.9 % Sodium Chloride 50 ML IV (14:38)
--- NOTE | 2021-09-08 15:11 | MHC.CM.PN ---
pt dcd home no skilled servceis ordered by
== END 2021-09-08 15:55 | disposition home or self-care (01) | DRG 193 ==
LOC: HO.ED 14:52 → HO.EDOVER 16:35 → HO.S3 09-06 02:00
PROVIDERS: Admitting Provider Hospitalist; Emergency Provider Emergency Medicine Emergency Medical Services; PCP Internal Medicine; Visit Provider Hospitalist
DX: J18.9 Pneumonia, unspecified organism (principal); I50.23 Acute on chronic systolic (congestive) heart failure; E11.9 Type 2 diabetes mellitus without complications; K21.9 Gastro-esophageal reflux disease without esophagitis; G89.29 Other chronic pain; Z20.822 Contact with and (suspected) exposure to COVID-19; Z88.0 Allergy status to penicillin; Z79.1 Long term (current) use of non-steroidal anti-inflammatories (NSAID); Z79.84 Long term (current) use of oral hypoglycemic drugs; Z79.899 Other long term (current) drug therapy
CPT/HCPCS: 36415; 71045; 71046; 74176; 80048; 80053; 81001; 82803; 82947; 83605; 83690; 83880; 84484; 85025; 85379; 85610; 87040; 87086; 87088; 87186; 87635; 93005; 94640; 96361; 96365; 96367; 96374; 96375; 96376; 99284; 99285; J0456; J0696; J1170; J1650; J1885; J1940; J2270; J2405; J2930

== ENCOUNTER 2021-09-29 08:09 | Outpatient (REF) | payer MEDICARE, SELFPAY ==
--- NOTE | ~2021-09-29 | XR_ITS ---
EXAMINATION: XR CHEST CLINICAL INFORMATION: Shortness of breath. History of pneumonia. COMPARISON: Previous chest x-rays most recent 09/05/2021 TECHNIQUE: 2 views of the chest were obtained. FINDINGS: The cardiac silhouette does not appear in enlarged. The pulmonary unique are prominent. The thoracic aorta is calcified. Hilar and mediastinal contours are otherwise unremarkable. The lungs are clear. There is no pleural effusion or pneumothorax. There are degenerative changes of the spine. XR/XR chest 2V IMPRESSION: Prominent pulmonary unique, particularly the right. Differential would include pulmonary artery hypertension, adenopathy and pulmonary venous redistribution. No evidence of pneumonia.
[2021-09-29 08:21] LABS: MANUAL DIFF FLAG NO
[2021-09-29 08:38] LABS: Basophils Percent Auto 0.2 % (0-2); Eosinophils Absolute Auto 0.4 X10*3/uL (0.0-0.4); Eosinophils Percent Auto 6.6 % (0-4); Hematocrit 41.2 % (37.0-47.0); Hemoglobin 13.4 g/dl (12.0-16.0); Imm Gran Abs Auto 0.02 X10*3/uL (0.00-0.03); Imm Gran Pct Auto 0.3 % (0.0-0.4); Lymphocytes Absolute Auto 0.8 X10*3/uL (1.2-4.9); Mean Corpuscular HGB Conc 32.5 g/dl (31.0-35.0); Mean Corpuscular Hemoglobin 31.4 pg (27.0-33.0); Mean Corpuscular Volume 96.5 fL (80.0-98.0); Mean Platelet Volume 10.6 fL (9.4-12.3); Monocytes Absolute Auto 0.5 X10*3/uL (0.1-1.2); Neutrophils Absolute Auto 4.2 x10*3/uL (2.0-8.3); Neutrophils Percent Auto 70.9 % (45-73); Platelet Count 196 X10*3/uL (160-400); Red Blood Count 4.27 X10*6/uL (4.20-5.50); Red Cell Distribution Width 13.6 % (11.0-16.0); White Blood Count 5.9 X10*3/uL (4.8-10.8)
[2021-09-29 08:49] LABS: Estimated Average Glucose 128 mg/dL; Hemoglobin A1c % 6.1 %
[2021-09-29 09:03] LABS: Alanine Aminotransferase 12 U/L (0-31); Albumin Level 3.5 g/dL (3.5-5.0); Alkaline Phosphatase 76 U/L (39-117); Anion Gap 12 (12-20); Aspartate Amino Transferase 13 U/L (5-31); Bilirubin Total 0.4 mg/dL (0.0-1.0); Blood Urea Nitrogen 13 mg/dL (9-16); Calcium 8.9 mg/dL (8.4-10.2); Carbon Dioxide 27 mmol/L (22-29); Chloride 102 mmol/L (96-108); Estimated Glomerular Filt Rate > 60; Glucose Random 159 mg/dL (60-115); Potassium 4.2 mmol/L (3.3-5.1); Sodium 137 mmol/L (135-145); Total Protein 5.9 g/dL (6.5-8.0)
== END 2021-09-29 08:10 | disposition home or self-care (01) ==
LOC: HO.LAB 08:09
PROVIDERS: PCP Internal Medicine; Visit Provider Internal Medicine
DX: E11.9 Type 2 diabetes mellitus without complications (principal); J44.9 Chronic obstructive pulmonary disease, unspecified; I10 Essential (primary) hypertension; Z87.01 Personal history of pneumonia (recurrent)
CPT/HCPCS: 36415; 71046; 80053; 83036; 85025

== ENCOUNTER 2021-11-09 08:40 | Outpatient (REF) | payer MEDICARE, SELFPAY ==
[2021-11-09 08:54] LABS: MANUAL DIFF FLAG NO
[2021-11-09 09:09] LABS: Basophils Percent Auto 0.5 % (0-2); Eosinophils Absolute Auto 0.4 X10*3/uL (0.0-0.4); Eosinophils Percent Auto 4.8 % (0-4); Hematocrit 44.2 % (37.0-47.0); Hemoglobin 14.5 g/dl (12.0-16.0); Imm Gran Abs Auto 0.03 X10*3/uL (0.00-0.03); Imm Gran Pct Auto 0.4 % (0.0-0.4); Lymphocytes Absolute Auto 1.3 X10*3/uL (1.2-4.9); Lymphocytes Percent Auto 17.7 % (20-40); Mean Corpuscular HGB Conc 32.8 g/dl (31.0-35.0); Mean Corpuscular Hemoglobin 31.3 pg (27.0-33.0); Mean Corpuscular Volume 95.5 fL (80.0-98.0); Mean Platelet Volume 10.8 fL (9.4-12.3); Monocytes Absolute Auto 0.7 X10*3/uL (0.1-1.2); Monocytes Percent Auto 9.9 % (2-11); Neutrophils Percent Auto 66.7 % (45-73); Platelet Count 283 X10*3/uL (160-400); Red Blood Count 4.63 X10*6/uL (4.20-5.50); Red Cell Distribution Width 14.5 % (11.0-16.0); White Blood Count 7.5 X10*3/uL (4.8-10.8)
[2021-11-09 09:12] LABS: Estimated Average Glucose 131 mg/dL; Hemoglobin A1c % 6.2 %
[2021-11-09 09:35] LABS: Alanine Aminotransferase 10 U/L (0-31); Alkaline Phosphatase 94 U/L (39-117); Anion Gap 11 (12-20); Aspartate Amino Transferase 16 U/L (5-31); Bilirubin Total 0.4 mg/dL (0.0-1.0); Blood Urea Nitrogen 15 mg/dL (9-16); Carbon Dioxide 31 mmol/L (22-29); Chloride 103 mmol/L (96-108); Estimated Glomerular Filt Rate > 60; Glucose Random 103 mg/dL (60-115); Potassium 4.1 mmol/L (3.3-5.1); Sodium 141 mmol/L (135-145); Total Protein 6.8 g/dL (6.5-8.0)
[2021-11-09 11:12] LABS: Creatinine Urine 147.34 mg/dL; Microalbum/Creatinine Ratio Ur 6.7 ug/mg cr
== END 2021-11-09 08:41 | disposition home or self-care (01) ==
LOC: HO.LAB 08:40
PROVIDERS: PCP Internal Medicine; Visit Provider Internal Medicine
DX: E11.9 Type 2 diabetes mellitus without complications (principal); J44.9 Chronic obstructive pulmonary disease, unspecified; I10 Essential (primary) hypertension; K21.9 Gastro-esophageal reflux disease without esophagitis; M19.90 Unspecified osteoarthritis, unspecified site
CPT/HCPCS: 36415; 80053; 82043; 83036; 85025

== ENCOUNTER 2021-12-28 16:23 | Outpatient (REF) | payer MEDICARE, SELFPAY ==
[2021-12-28 16:50] LABS: COVID-19 Test Negative (Negative); IDNOW Serial# 16C4AD1C
== END 2021-12-28 16:24 | disposition home or self-care (01) ==
LOC: HO.LNP 16:23
PROVIDERS: Visit Provider Internal Medicine
DX: Z20.822 Contact with and (suspected) exposure to COVID-19 (principal)
CPT/HCPCS: 87635

== ENCOUNTER 2022-02-28 10:08 | Outpatient (REF) | payer MEDICARE, SELFPAY ==
--- NOTE | ~2022-02-28 | XR_ITS ---
EXAMINATION: XR CHEST CLINICAL INFORMATION: Cough, rule out left lower lobe infiltrate. COMPARISON: 09/29/2021 chest radiograph. TECHNIQUE: 2 views of the chest were obtained. FINDINGS: No significant abnormality is noted involving the heart, lungs, mediastinum, bony thorax or soft tissues. XR/XR chest 2V IMPRESSION: No acute cardiopulmonary process.
== END 2022-02-28 10:09 | disposition home or self-care (01) ==
LOC: HO.XRAY 10:08
PROVIDERS: PCP Internal Medicine; Visit Provider Internal Medicine
DX: R05.9 Cough, unspecified (principal); J98.4 Other disorders of lung
CPT/HCPCS: 71046

== ENCOUNTER 2022-04-12 13:25 | Outpatient (REF) | payer MEDICARE, SELFPAY ==
--- NOTE | ~2022-04-12 | CT_ITS ---
EXAMINATION: CT HEAD WITHOUT CONTRAST CLINICAL INFORMATION: Head injury COMPARISON: None TECHNIQUE: Contiguous axial imaging was performed from the skull base to vertex without intravenous administration of contrast. This CT examination was performed using dose optimization techniques as appropriate, variously including the following: *Automated exposure control *Adjustment of mA and/or kV according to patient size (this includes techniques or standardized protocols for targeted exams where dose is matched to indication/reason for exam; i.e. extremities or head) *Use of iterative reconstruction technique DLP: 761 mGy-cm FINDINGS: There is no evidence of an extra-axial collection. There is no evidence of intra-axial or extra-axial hemorrhage. The ventricles and extra-axial CSF spaces are prominent suggestive of mild generalized atrophy. There is mild nonspecific periventricular white matter disease. No mass, mass effect or infarct is seen. There is atherosclerotic disease. No skull fracture is seen. There is a small air-fluid level in the right maxillary sinus. No fracture is seen and this may represent sinusitis. Clinical correlation is recommended. Paranasal sinuses, mastoid air cells and middle ears are clear. CT/CT head/brain wo con IMPRESSION: No acute intracranial findings. Small air-fluid level in the right maxillary sinus probably representing sinusitis. Clinical correlation recommended.
== END 2022-04-12 13:26 | disposition home or self-care (01) ==
LOC: HO.CT 13:25
PROVIDERS: Visit Provider Internal Medicine
DX: S09.90XA Unspecified injury of head, initial encounter (principal); X58.XXXA Exposure to other specified factors, initial encounter; Y93.9 Activity, unspecified; Y92.9 Unspecified place or not applicable; Y99.9 Unspecified external cause status
CPT/HCPCS: 70450

== ENCOUNTER 2022-05-10 14:26 | Inpatient (IN) | payer MEDICARE, SELFPAY ==
--- NOTE | ~2022-05-10 | XR_ITS ---
EXAMINATION: XR CHEST CLINICAL INFORMATION: Pneumonia. COMPARISON: 02/28/2022 chest radiographs. TECHNIQUE: Frontal view of the chest was obtained. FINDINGS: There is mild prominence of the pulmonary vasculature and cardiac silhouette. Mild linear markings are seen at the left lung base. The mediastinal structures are unremarkable. XR/XR chest 1V IMPRESSION: Mild prominence of the pulmonary vasculature and cardiac silhouette may be secondary to lower lung volumes along with left basilar atelectasis however, mild congestion cannot be excluded.
--- NOTE | ~2022-05-10 | XR_ITS ---
EXAMINATION: XR CHEST CLINICAL INFORMATION: Hypoxia COMPARISON: Previous chest x-ray most recent 05/10/2022 TECHNIQUE: Frontal view of the chest was obtained. FINDINGS: The cardiac and mediastinal contours are stable. There is subsegmental atelectasis left lung base. The lungs are otherwise clear. There is no pleural effusion or pneumothorax. There are degenerative changes of the spine. XR/XR chest 1V IMPRESSION: Subsegmental atelectasis at the left lung base.
[2022-05-10 14:46] VITALS: BP 162/91; PULSE 96; RESP 22; TEMP 36.4; O2SAT 92; BMI 49.9
--- NOTE | 2022-05-10 14:49 | ECG_ITS ---
Test Reason : dyspnea,cp Blood Pressure : / mmHG Vent. Rate : 102 BPM Atrial Rate : 102 BPM P-R Int : 182 ms QRS Dur : 086 ms QT Int : 380 ms P-R-T Axes : 051 -02 059 degrees QTc Int : 495 ms Sinus tachycardia with frequent , and consecutive Premature ventricular complexes Possible Left atrial enlargement Abnormal ECG When compared with ECG of 05-SEP-2021 12:24, Premature ventricular complexes are now Present Referred By: Generic ED Physician Electronically Signed By:Alvaro Lyman
[2022-05-10 15:05] LABS: MANUAL DIFF FLAG NO
[2022-05-10 15:11] LABS: Basophils Percent Auto 0.4 % (0-2); Eosinophils Absolute Auto 0.3 X10*3/uL (0.0-0.4); Eosinophils Percent Auto 2.5 % (0-4); Hematocrit 44.9 % (37.0-47.0); Hemoglobin 14.4 g/dl (12.0-16.0); Imm Gran Abs Auto 0.05 X10*3/uL (0.00-0.03); Imm Gran Pct Auto 0.5 % (0.0-0.4); Lymphocytes Absolute Auto 1.3 X10*3/uL (1.2-4.9); Lymphocytes Percent Auto 12.5 % (20-40); Mean Corpuscular HGB Conc 32.1 g/dl (31.0-35.0); Mean Corpuscular Hemoglobin 31.3 pg (27.0-33.0); Mean Corpuscular Volume 97.6 fL (80.0-98.0); Mean Platelet Volume 10.2 fL (9.4-12.3); Monocytes Absolute Auto 0.9 X10*3/uL (0.1-1.2); Neutrophils Absolute Auto 7.6 x10*3/uL (2.0-8.3); Neutrophils Percent Auto 75.1 % (45-73); Platelet Count 252 X10*3/uL (160-400); Red Cell Distribution Width 15.1 % (11.0-16.0); White Blood Count 10.2 X10*3/uL (4.8-10.8)
[2022-05-10 15:17] LABS: COVID-19 Test Positive (Negative); IDNOW Serial# 16C4AD1C
[2022-05-10 15:23] LABS: Influenza A Negative (Negative); Influenza B2 Negative (Negative)
[2022-05-10 15:26] LABS: Anion Gap 13 (12-20); Blood Urea Nitrogen 18 mg/dL (9-16); Calcium 9.1 mg/dL (8.4-10.2); Carbon Dioxide 27 mmol/L (22-29); Chloride 104 mmol/L (96-108); Creatinine Clr Calc Pharmacy 74.7; Estimated Glomerular Filt Rate > 60; Glucose Random 97 mg/dL (60-115); Potassium 4.7 mmol/L (3.3-5.1); Sodium 139 mmol/L (135-145)
[2022-05-10] MEDS: Albuterol/Iprat 2.5/0.5MG 3 ML AMPUL.NEB INHALE (15:27)
[2022-05-10 15:30] VITALS: PULSE 93; RESP 18; O2SAT 96
--- NOTE | 2022-05-10 15:40 | ED_ITS ---
HPI - General Adult General Chief complaint: Dyspnea Stated complaint: copd , rib pain Time Seen by Provider: 05/10/22 15:06 Source: patient Mode of arrival: ambulatory Limitations: no limitations History of Present Illness HPI narrative: 82-year-old female with pmh of COPD presents to the ED for coughing, pleurisy, and chest pain. Patient states no reflief after using albuterol inhaler. patietn denies any swelling of lower extremities, calf pain, or coughing up blood. Related Data Home Medications Medication Instructions Recorded Confirmed allopurinol 100 mg tablet 100 mg PO DAILY 09/05/21 05/10/22 diltiazem HCl 360 mg capsule,24 360 mg PO DAILY 09/05/21 05/10/22 hr,extended release (Tiadylt ER) fluticasone propionate 50 1 spray intranasal DAILY PRN 09/05/21 05/10/22 mcg/actuation nasal Allergy Symptoms spray,suspension furosemide 40 mg tablet 80 mg PO DAILY 09/05/21 05/10/22 gemfibrozil 600 mg tablet 600 mg PO DAILY 09/05/21 05/10/22 loratadine 10 mg tablet (Claritin) 10 mg PO DAILY 09/05/21 05/10/22 meloxicam 15 mg tablet 15 mg PO DAILY 09/05/21 05/10/22 metformin 500 mg tablet,extended 500 mg PO DAILY 09/05/21 05/10/22 release 24 hr metolazone 2.5 mg tablet 2.5 mg PO Q48H 09/05/21 05/10/22 omeprazole 20 mg capsule,delayed 20 mg PO DAILY 09/05/21 05/10/22 release pravastatin 40 mg tablet 40 mg PO DAILY 09/05/21 05/10/22 guaifenesin 600 mg tablet, 1,200 mg PO Q12H 05/10/22 05/10/22 extended release 12 hr (Mucinex) oxymetazoline 0.05 % nasal spray 1 spray intranasal Q12H 05/10/22 05/10/22 (Mucinex Sinus-Max) Previous Rx's Medication Instructions Recorded oxycodone-acetaminophen 5 mg-325 1 tab PO TID PRN pain #14 tabs 09/04/21 mg tablet (Percocet) Allergies Allergy/AdvReac Type Severity Reaction Status Date / Time mold [MOLD] Allergy Intermediate COUGHING, Verified 09/04/21 15:01 SINUS CONGESTION Penicillins [PENICILLINS] Allergy Intermediate REVERSE Verified 09/04/21 15:01 REACTION MAKES PT FEEL WORSE Review of Systems Review of Systems: Cough, chest pain, coughing green phleghm, and pleurisy Yes all other systems are reviewed and are negative [facility] Past Medical History Medical History Arthritis COPD (chronic obstructive pulmonary disease) Dyslipidemia Hypertension Lymphedema Morbid obesity Type 2 diabetes mellitus Surgical History History of knee replacement Family History Family History Mother Coronary artery disease Social History Social History Household Members: Spouse Housing: House Do you presently have visiting nurse or other home services: No Patient Tobacco Use Status: Never used Tobacco e-Cigarette/Vaping Use: Never Used Second Hand Smoke Exposure: No Use of substances other than those prescribed or required for medical reasons: No Advance Directives: No Advance Directives Information Provided: No service: No Current occupational status: retired Physical Exam ED Vital Signs: Vital Signs - 24 hr 05/10/22 14:46 05/10/22 15:30 05/10/22 15:47 Temperature 97.6 F 98.2 F Pulse Rate 96 93 95 Respiratory Rate 22 H 18 20 Blood Pressure 162/91 H 172/83 H Pulse Oximetry 92 91 L Oxygen Delivery Method Room Air Room Air Oxygen Flow Rate 05/10/22 16:16 05/10/22 16:17 Temperature Pulse Rate Respiratory Rate Blood Pressure Pulse Oximetry 83 L 93 Oxygen Delivery Method Room Air Nasal Cannula Oxygen Flow Rate 2 BMI result Body Mass Index 49.9 Const General: cooperative, healthy appearing, comfortable, no acute distress, well developed, alert, awake and Physically active Orientation/consciousness: oriented to person, oriented to place, oriented to time and patient oriented x3 HENMT Head: Yes normal to inspection, Yes No palpable skull fracture present, Yes normocephalic, Yes atraumatic and No abrasion Eyes General: appearance normal, both eyes and all related structures Neck Neck: Yes normal visual inspection, Yes full ROM, Yes no lymphadenopathy, Yes no meningeal signs, Yes trachea midline, Yes supple, No anterior neck swelling and No tender Chest Chest palpation & inspection: normal inspection of the chest and normal palpation of entire chest wall Resp Effort & Inspection: normal respiratory effort and able to speak in complete sentences Auscultation: clear to auscultation bilaterally Cardio Jugular venous distension: no JVD Heart sounds: S1 normal heart sound present and S2 normal heart sound present GI Inspection: Yes normal to inspection and No abdominal wall ecchymosis Palpation (GI): Soft to palpation, not firm, nontender, no guarding and not rigid General: No CVA tenderness and Yes no CVA tenderness Back/Spine/Pelvis Back: no CVA tenderness, No CVA tenderness and No back tenderness Skin General skin exam: no rashes or lesions noted and elasticity normal Neuro General: oriented to person, oriented to place, oriented to time, patient oriented x3, gait normal, tone normal and no meningeal signs Extrem Other: Positive for bilateral chronic lymphedema. Negative for pitting edema, calf tenderness, or redness. Psych Appearance: grossly normal, well kempt and not disheveled Course Course Course Narrative: Due to risk factors we will do cardiac evaluation and pulmonary evaluation. Albuterol, magnesium, and steroids ordered. COVID testing ordered. Reevaluation(s) Reevaluation #1: Patient is COVID positive. Due to pleurisy D-dimer added. Some dementia ready given before COVID results came back. Will re-evaluate Time: 16:03 Reevaluation #2: During the ED visit patient was hypoxic in drop down to O2 sat of 83% room air. Patient baseline O2 sats she states 95%. D-dimer negative. D-dimer 168. Normal color of 230. Patient placed on oxygen. Patient admitted Time: 21:55 Medical Decision Making MDM Narrative Medical decision making narrative: COVID Lab Data Result diagrams: 05/10/22 15:00 05/10/22 15:00 Labs: Lab Results 05/10/22 05/10/22 05/10/22 Range/Units 15:00 15:00 15:00 WBC 10.2 (4.8-10.8) X10*3/uL RBC 4.60 (4.20-5.50) X10*6/uL Hgb 14.4 (12.0-16.0) g/dl Hct 44.9 (37.0-47.0) % MCV 97.6 (80.0-98.0) fL MCH 31.3 (27.0-33.0) pg MCHC 32.1 (31.0-35.0) g/dl RDW 15.1 (11.0-16.0) % Plt Count 252 (160-400) X10*3/uL MPV 10.2 (9.4-12.3) fL Immature Gran % (Auto) 0.5 H (0.0-0.4) % Neut % (Auto) 75.1 H (45-73) % Lymph % (Auto) 12.5 L (20-40) % [place] % (Auto) 9.0 (2-11) % Eos % (Auto) 2.5 (0-4) % Baso % (Auto) 0.4 (0-2) % Lymph # (Auto) 1.3 (1.2-4.9) X10*3/uL [place] # (Auto) 0.9 (0.1-1.2) X10*3/uL Eos # (Auto) 0.3 (0.0-0.4) X10*3/uL Baso # (Auto) 0.0 (0.0-0.2) X10*3/uL Abs Immat Gran (auto) 0.05 H (0.00-0.03) X10*3/uL Absolute Neuts (auto) 7.6 (2.0-8.3) x10*3/uL Absolute Nucleated RBC 0.000 (0.0-0.012) X10*3/uL Nucleated RBC % (auto) 0.0 (0.0-0.2) /100WBC PT (10.0-13.1) SEC INR (0.9-1.1) APTT (24.1-38.0) SEC D-Dimer High Sensitivty NG/ML Sodium 139 (135-145) mmol/L Potassium 4.7 (3.3-5.1) mmol/L Chloride 104 (96-108) mmol/L Carbon Dioxide 27 (22-29) mmol/L Anion Gap 13 (12-20) BUN 18 H (9-16) mg/dL Creatinine 0.84 (0.5-1.4) mg/dL Estim Creat Clear Calc 74.7 Estimated GFR > 60 Random Glucose 97 (60-115) mg/dL Lactic Acid (0.5-2.0) mmol/L Calcium 9.1 D (8.4-10.2) mg/dL Ferritin 73 (10-250) ng/mL Lactate Dehydrogenase 167 (122-220) U/L Troponin I High Sens (<3.5-17.0) ng/L C-Reactive Protein 0.45 (< or = 0.50) mg/dL B-Natriuretic Peptide (<100) pg/mL Procalcitonin ng/mL COVID-19 (ANTHONY) Positive A (Negative) COVID-19 Clin Com See Note Influenza Type A (DUC) (Negative) Influenza Type B (DUC) (Negative) Influenza A & B Note 05/10/22 05/10/22 05/10/22 Range/Units 15:00 15:00 15:41 WBC (4.8-10.8) X10*3/uL RBC (4.20-5.50) X10*6/uL Hgb (12.0-16.0) g/dl Hct (37.0-47.0) % MCV (80.0-98.0) fL MCH (27.0-33.0) pg MCHC (31.0-35.0) g/dl RDW (11.0-16.0) % Plt Count (160-400) X10*3/uL MPV (9.4-12.3) fL Immature Gran % (Auto) (0.0-0.4) % Neut % (Auto) (45-73) % Lymph % (Auto) (20-40) % [place] % (Auto) (2-11) % Eos % (Auto) (0-4) % Baso % (Auto) (0-2) % Lymph # (Auto) (1.2-4.9) X10*3/uL [place] # (Auto) (0.1-1.2) X10*3/uL Eos # (Auto) (0.0-0.4) X10*3/uL Baso # (Auto) (0.0-0.2) X10*3/uL Abs Immat Gran (auto) (0.00-0.03) X10*3/uL Absolute Neuts (auto) (2.0-8.3) x10*3/uL Absolute Nucleated RBC (0.0-0.012) X10*3/uL Nucleated RBC % (auto) (0.0-0.2) /100WBC PT (10.0-13.1) SEC INR (0.9-1.1) APTT (24.1-38.0) SEC D-Dimer High Sensitivty NG/ML Sodium (135-145) mmol/L Potassium (3.3-5.1) mmol/L Chloride (96-108) mmol/L Carbon Dioxide (22-29) mmol/L Anion Gap (12-20) BUN (9-16) mg/dL Creatinine (0.5-1.4) mg/dL Estim Creat Clear Calc Estimated GFR Random Glucose (60-115) mg/dL Lactic Acid 0.8 (0.5-2.0) mmol/L Calcium (8.4-10.2) mg/dL Ferritin (10-250) ng/mL Lactate Dehydrogenase (122-220) U/L Troponin I High Sens (<3.5-17.0) ng/L C-Reactive Protein (< or = 0.50) mg/dL B-Natriuretic Peptide (<100) pg/mL Procalcitonin 0.03 ng/mL COVID-19 (ANTHONY) (Negative) COVID-19 Clin Com Influenza Type A (DUC) Negative (Negative) Influenza Type B (DUC) Negative (Negative) Influenza A & B Note See Note 05/10/22 05/10/22 Range/Units 15:42 15:42 WBC (4.8-10.8) X10*3/uL RBC (4.20-5.50) X10*6/uL Hgb (12.0-16.0) g/dl Hct (37.0-47.0) % MCV (80.0-98.0) fL MCH (27.0-33.0) pg MCHC (31.0-35.0) g/dl RDW (11.0-16.0) % Plt Count (160-400) X10*3/uL MPV (9.4-12.3) fL Immature Gran % (Auto) (0.0-0.4) % Neut % (Auto) (45-73) % Lymph % (Auto) (20-40) % [place] % (Auto) (2-11) % Eos % (Auto) (0-4) % Baso % (Auto) (0-2) % Lymph # (Auto) (1.2-4.9) X10*3/uL [place] # (Auto) (0.1-1.2) X10*3/uL Eos # (Auto) (0.0-0.4) X10*3/uL Baso # (Auto) (0.0-0.2) X10*3/uL Abs Immat Gran (auto) (0.00-0.03) X10*3/uL Absolute Neuts (auto) (2.0-8.3) x10*3/uL Absolute Nucleated RBC (0.0-0.012) X10*3/uL Nucleated RBC % (auto) (0.0-0.2) /100WBC PT 10.6 (10.0-13.1) SEC INR 0.9 (0.9-1.1) APTT 43.2 H (24.1-38.0) SEC D-Dimer High Sensitivty 168 NG/ML Sodium (135-145) mmol/L Potassium (3.3-5.1) mmol/L Chloride (96-108) mmol/L Carbon Dioxide (22-29) mmol/L Anion Gap (12-20) BUN (9-16) mg/dL Creatinine (0.5-1.4) mg/dL Estim Creat Clear Calc Estimated GFR Random Glucose (60-115) mg/dL Lactic Acid (0.5-2.0) mmol/L Calcium (8.4-10.2) mg/dL Ferritin (10-250) ng/mL Lactate Dehydrogenase (122-220) U/L Troponin I High Sens 8.3 (<3.5-17.0) ng/L C-Reactive Protein (< or = 0.50) mg/dL B-Natriuretic Peptide 186 H (<100) pg/mL Procalcitonin ng/mL COVID-19 (ANTHONY) (Negative) COVID-19 Clin Com Influenza Type A (DUC) (Negative) Influenza Type B (DUC) (Negative) Influenza A & B Note ECG Data Interpretation: Sinus tachycardia. Ventricular rate 102. Pr interval 182. QRS 86. QTC 495. Negative STEMI Discharge Plan Discharge Clinical Impression: COVID Patient Disposition: Admitted As Inpatient
[2022-05-10 15:47] VITALS: BP 172/83; PULSE 95; RESP 20; TEMP 36.8; O2SAT 91
[2022-05-10] MEDS: methylPREDNISolone Sod Succ 125 MG/2 ML VIAL IVPUSH (15:51)
[2022-05-10] MEDS: Magnesium Sulfate/H2O 2 GM/50 ML PIGGYBACK IV (15:51)
[2022-05-10 15:53] LABS: INTERNATIONAL NORM RATIO 0.9 (0.9-1.1); Prothrombin Time 10.6 SEC (10.0-13.1)
[2022-05-10 15:56] LABS: Partial Thromboplastin Time 43.2 SEC (24.1-38.0)
[2022-05-10 15:59] LABS: Lactic Acid 0.8 mmol/L (0.5-2.0)
[2022-05-10 16:10] LABS: B Type Natriuretic Peptide 186 pg/mL (<100); D Dimer High Sensitivity 168 NG/ML; Troponin-I High Sensitivity 8.3 ng/L (<3.5-17.0)
[2022-05-10 16:16] VITALS: O2SAT 83
[2022-05-10 16:17] VITALS: O2SAT 93
[2022-05-10 17:32] LABS: C Reactive Protein 0.45 mg/dL (< or = 0.50); Lactate Dehydrogenase 167 U/L (122-220)
--- NOTE | 2022-05-10 17:35 | PHA.MEDREC ---
Pharmacy Consult ? Medication Reconciliation Pharmacy has completed the medication reconciliation. Patient reported all medications. Patient still only takes gemfibrozil once daily because she can never remember the PM dose. Lizzie Gatica, PharmD
--- NOTE | 2022-05-10 17:50 | PM.IMHP ---
History of Present Illness Date of Service: 05/10/22 Chief Complaint: dyspnea, cough 82yoF with COPD [with history of home O2 dependence after admission here in September but weaned off], HTN, HFpEF, DM2, and lymphedema who lives at home with her and is independent in ADLs. She presents with 2 days of worsening cough productive of white sputum, dyspnea, and rib pain. No fever or chills. Endorses sinus headache/congestion. No sore throat. No nausea or vomiting. No sick contacts. She had the [employer] mRNA Covid-19 vaccine series plus 1 booster in July 2021. She presented with hypoxia with SaO2 85 on room air. CXR showed mild pulmonary vascular prominence. Covid-19 ANTHONY was positive. CRP low at 0.45. She was given 2g of IV magnesium sulfate, a Duoneb nebulization treatment, and 125 mg of IV methylprednisolone Review of Systems Review of Systems: Yes all other systems are reviewed and are negative [facility] Medical History Arthritis COPD (chronic obstructive pulmonary disease) Dyslipidemia Hypertension Lymphedema Morbid obesity Type 2 diabetes mellitus Family History Mother Coronary artery disease Surgical History History of knee replacement Social History Household Members: Spouse Housing: House Do you presently have visiting nurse or other home services: No Patient Tobacco Use Status: Never used Tobacco e-Cigarette/Vaping Use: Never Used Second Hand Smoke Exposure: No Use of substances other than those prescribed or required for medical reasons: No Advance Directives: No Advance Directives Information Provided: No service: No Current occupational status: retired Meds Allergies Allergy/AdvReac Type Severity Reaction Status Date / Time mold [MOLD] Allergy Intermediate COUGHING, Verified 09/04/21 15:01 SINUS CONGESTION Penicillins [PENICILLINS] Allergy Intermediate REVERSE Verified 09/04/21 15:01 REACTION MAKES PT FEEL WORSE Active Medications: Current Medications Albuterol Sulfate (Albuterol Sulfate 90 Mcg 8 Gm Inhaler) 4 puff INHALE Q2H PRN PRN Reason: shortness of breath/wheeze Allopurinol (Allopurinol 100 Mg Tablet) 100 mg PO DAILY [facility] Dexamethasone Sodium Phosphate (Dexamethasone Sod Phosphate 4 Mg/Ml Vial) 6 mg IVPUSH DAILY [facility] Stop: 05/20/22 09:01 Dextrose (Dextrose 50 % 25 Gm/50 Ml Syringe) 25 gm IVPUSH Q15M PRN; Protocol PRN Reason: per Hypoglycemia Standing Ord. Diltiazem HCl (Diltiazem Hcl Cd 180 Mg Cap.Er.24h) 360 mg PO DAILY [facility]; Protocol Doxycycline Hyclate (Doxycycline Hyclate 100 Mg Tablet) 100 mg PO Q12H [facility] Fluticasone Propionate (Fluticasone Propionate Nasal 16 Gm [place]) 1 spray NOSTRIL-B DAILY PRN PRN Reason: Allergy Symptoms Furosemide (Furosemide 40 Mg Tablet) 80 mg PO DAILY [facility]; Protocol Gemfibrozil (Gemfibrozil 600 Mg Tablet) 600 mg PO DAILY [facility] Glucose (Glucose Gel 15 Gm Gel..Gram.) 15 gm PO Q15M PRN; Protocol PRN Reason: per Hypoglycemia Standing Ord. Guaifenesin (Guaifenesin [place] 600 Mg Tab.Er.12h) 1,200 mg PO Q12H [facility] Insulin Human Lispro (Insulin Lispro 100 Unit/Ml 3 Ml Vial) 0 unit SUBCUT QIDACHS [facility]; Protocol Loratadine (Loratadine 10 Mg Tablet) 10 mg PO DAILY [facility] Metolazone (Metolazone 2.5 Mg Tablet) 2.5 mg PO Q48H [facility] Non-Formulary Medication (Oxycodone-Acetaminophen [Percocet]) 1 tab PO TID PRN PRN Reason: pain Omeprazole (Omeprazole 20 Mg Capsule.Dr) 20 mg PO DAILY [facility] Oxymetazoline HCl (Oxymetazoline Hcl 0.05 % Nasal 15 Ml [place]) 1 spray NOSTRIL-B Q12H [facility] Pravastatin Sodium (Pravastatin Sodium 40 Mg Tablet) 40 mg PO DAILY [facility] Home Medications Medication Instructions Recorded Confirmed Last Taken Type allopurinol 100 mg tablet 100 mg PO DAILY 09/05/21 05/10/22 05/10/22 History diltiazem HCl 360 mg capsule,24 360 mg PO DAILY 09/05/21 05/10/22 05/10/22 History hr,extended release (Tiadylt ER) fluticasone propionate 50 1 spray intranasal DAILY PRN 09/05/21 05/10/22 05/10/22 History mcg/actuation nasal Allergy Symptoms spray,suspension furosemide 40 mg tablet 80 mg PO DAILY 09/05/21 05/10/22 05/10/22 History gemfibrozil 600 mg tablet 600 mg PO DAILY 09/05/21 05/10/22 05/10/22 History loratadine 10 mg tablet (Claritin) 10 mg PO DAILY 09/05/21 05/10/22 05/10/22 History meloxicam 15 mg tablet 15 mg PO DAILY 09/05/21 05/10/22 05/10/22 History metformin 500 mg tablet,extended 500 mg PO DAILY 09/05/21 05/10/22 05/10/22 History release 24 hr metolazone 2.5 mg tablet 2.5 mg PO Q48H 09/05/21 05/10/22 05/10/22 History omeprazole 20 mg capsule,delayed 20 mg PO DAILY 09/05/21 05/10/22 05/10/22 History release pravastatin 40 mg tablet 40 mg PO DAILY 09/05/21 05/10/22 05/10/22 History guaifenesin 600 mg tablet, 1,200 mg PO Q12H 05/10/22 05/10/22 Unknown History extended release 12 hr (Mucinex) oxymetazoline 0.05 % nasal spray 1 spray intranasal Q12H 05/10/22 05/10/22 Unknown History (Mucinex Sinus-Max) Physical Exam Vital Signs and Narrative: Vital Signs: Last Vital Signs Temp 98.2 F 05/10/22 15:47 Pulse 95 05/10/22 15:47 Resp 20 05/10/22 15:47 BP 172/83 H 05/10/22 15:47 Pulse Ox 93 05/10/22 16:17 O2 Del Method 05/10/22 16:17 O2 Flow Rate 2 05/10/22 16:17 BMI result Body Mass Index 49.9 Gen: mild respiratory distress HEENT: sclera anicteric, moist mucus membranes Neck: supple Lungs: scattered soft exp wheezes Heart: regular rate and rhythm, no murmurs Abd: soft, non-tender, non-distended, obese Ext: 3+ nonpitting edema Skin: warm/well-perfused Neuro: alert and oriented x3, no focal findings Psych: appropriate affect Results Labs CBC and Chem 7: 05/10/22 15:00 05/10/22 15:00 Labs: Laboratory Results - last 24 hr 05/10/22 05/10/22 05/10/22 15:00 15:00 15:00 MCV 97.6 MCH 31.3 MCHC 32.1 RDW 15.1 Plt Count 252 MPV 10.2 Immature Gran % (Auto) 0.5 H Neut % (Auto) 75.1 H Lymph % (Auto) 12.5 L [place] % (Auto) 9.0 Eos % (Auto) 2.5 Baso % (Auto) 0.4 Lymph # (Auto) 1.3 [place] # (Auto) 0.9 Eos # (Auto) 0.3 Baso # (Auto) 0.0 Abs Immat Gran (auto) 0.05 H Absolute Neuts (auto) 7.6 Absolute Nucleated RBC 0.000 Nucleated RBC % (auto) 0.0 PT INR APTT D-Dimer High Sensitivty Anion Gap 13 Estim Creat Clear Calc 74.7 Estimated GFR > 60 Random Glucose 97 Lactic Acid Calcium 9.1 D Lactate Dehydrogenase 167 Troponin I High Sens C-Reactive Protein 0.45 B-Natriuretic Peptide COVID-19 (ANTHONY) Positive A COVID-19 Clin Com See Note Influenza Type A (DUC) Influenza Type B (DUC) Influenza A & B Note 05/10/22 05/10/22 05/10/22 15:00 15:41 15:42 MCV MCH MCHC RDW Plt Count MPV Immature Gran % (Auto) Neut % (Auto) Lymph % (Auto) [place] % (Auto) Eos % (Auto) Baso % (Auto) Lymph # (Auto) [place] # (Auto) Eos # (Auto) Baso # (Auto) Abs Immat Gran (auto) Absolute Neuts (auto) Absolute Nucleated RBC Nucleated RBC % (auto) PT 10.6 INR 0.9 APTT 43.2 H D-Dimer High Sensitivty 168 Anion Gap Estim Creat Clear Calc Estimated GFR Random Glucose Lactic Acid 0.8 Calcium Lactate Dehydrogenase Troponin I High Sens C-Reactive Protein B-Natriuretic Peptide COVID-19 (ANTHONY) COVID-19 Clin Com Influenza Type A (DUC) Negative Influenza Type B (DUC) Negative Influenza A & B Note See Note 05/10/22 15:42 MCV MCH MCHC RDW Plt Count MPV Immature Gran % (Auto) Neut % (Auto) Lymph % (Auto) [place] % (Auto) Eos % (Auto) Baso % (Auto) Lymph # (Auto) [place] # (Auto) Eos # (Auto) Baso # (Auto) Abs Immat Gran (auto) Absolute Neuts (auto) Absolute Nucleated RBC Nucleated RBC % (auto) PT INR APTT D-Dimer High Sensitivty Anion Gap Estim Creat Clear Calc Estimated GFR Random Glucose Lactic Acid Calcium Lactate Dehydrogenase Troponin I High Sens 8.3 C-Reactive Protein B-Natriuretic Peptide 186 H COVID-19 (ANTHONY) COVID-19 Clin Com Influenza Type A (DUC) Influenza Type B (DUC) Influenza A & B Note Imaging Radiologist's Impressions: Impressions Chest X-Ray 05/10/22 17:06 IMPRESSION: Mild prominence of the pulmonary vasculature and cardiac silhouette may be secondary to lower lung volumes along with left basilar atelectasis however, mild congestion cannot be excluded. Assessment and Plan (1) COVID: Status: Acute Plan 82yoF with risk factors of COPD, DM2, HTN, HFpEF, and morbid obesity presenting with 2 days of worsening dyspnea and cough, found to be positive for Covid-19 and hypoxic. # Covid-19 infection - high risk for progression to severe disease. will admit to [facility], place on isolation, give dexamethasone 6 mg/d x 10d, give 5d of remdesivir, and trend inflammatory markers. # acute hypoxic respiratory failure - supplemental O2, wean as tolerated # COPD exacerbation - steroids as above, plus inhaled albuterol; also add doxycycline # HFpEF - continue furosemide + metolazone # HLD - continue pravastatin + gemfibrozil # HTN - continue diltiazem # DM2 - correction-dose lispro; hold MTF VTE prophylaxis: LMWH code status: DNR/DNI I anticipate that the patient will stay at least 2 midnights in hospital due to the above reasons. It is neither reasonable nor safe to care for them in a less acute setting. Quality Stroke Does the patient have a stroke diagnosis?: No VTE Prior VTE?: No VTE Risk Level:: Medical - moderate - high VTE Device Contraindication: N/A - Device Ordered VTE Drug Contraindication: N/A - Med Ordered
[2022-05-10 17:53] LABS: Ferritin 73 ng/mL (10-250)
[2022-05-10 18:03] LABS: Procalcitonin 0.03 ng/mL
[2022-05-10] MEDS: Oxymetazoline HCl 0.05 % Nasal 15 ML SPRAY 1 SPRAY NOSTRIL-B (18:37)
[2022-05-10] MEDS: oxyCODONE HCl Immed Release 5 MG TABLET PO (19:08)
[2022-05-10] MEDS: Remdesivir 200 MG in 0.9 % Sodium Chloride 210 ML 105 MG IV (19:18)
[2022-05-10] MEDS: Enoxaparin Sodium 40 MG/0.4 ML SYRINGE SUBCUT (19:21)
[2022-05-10 19:59] VITALS: BP 163/75; PULSE 104; RESP 22; TEMP 36.3; O2SAT 91
[2022-05-10 20:40] LABS: Glucose, Whole Blood 158 mg/dL (60-115)
[2022-05-10] MEDS: Insulin Lispro 100 UNIT/ML 3 ML VIAL SUBCUT (20:44)
[2022-05-10] MEDS: guaiFENesin LA 600 MG TAB.ER.12H 1200 MG PO (20:44)
--- NOTE | 2022-05-11 | ECG_ITS ---
Test Reason : VTACH Blood Pressure : / mmHG Vent. Rate : 095 BPM Atrial Rate : 095 BPM P-R Int : 178 ms QRS Dur : 092 ms QT Int : 388 ms P-R-T Axes : 057 -03 071 degrees QTc Int : 487 ms Sinus rhythm with frequent , and consecutive Premature ventricular complexes Abnormal ECG When compared with ECG of 10-MAY-2022 14:45, No significant change was found Referred By: Vic Billy Electronically Signed By:Alvaro Lyman
--- NOTE | 2022-05-11 00:07 | PC.NURSE ---
Pt oob to bedside commode with 1 assist. Rn aware
[2022-05-11] MEDS: oxyCODONE HCl Immed Release 5 MG TABLET PO ×3 (00:24→19:26)
--- NOTE | 2022-05-11 00:47 | PC.NURSE ---
Pt having runs of [place] and [place], Dr Pugh made aware.
--- NOTE | 2022-05-11 01:07 | PC.NURSE ---
Pt with frequent PVC's and Bigemini, Dr Pugh made aware, ECG and Labs ordered, Pt AOx3, denies chest pain, nausea, light headedness, HR 96-100, RR 17, BP 168/98, O2 94% on 2L, Pt is Covid (+)
[2022-05-11 01:31] VITALS: BP 168/98; PULSE 96; RESP 17; O2SAT 94
[2022-05-11 01:32] LABS: Anion Gap 14 (12-20); Blood Urea Nitrogen 15 mg/dL (9-16); Carbon Dioxide 24 mmol/L (22-29); Chloride 105 mmol/L (96-108); Creatinine Clr Calc Pharmacy 72.1; Estimated Glomerular Filt Rate > 60; Glucose Random 172 mg/dL (60-115); Magnesium 2.5 mg/dL (1.6-2.6); Potassium 4.5 mmol/L (3.3-5.1); Sodium 138 mmol/L (135-145)
[2022-05-11 05:30] VITALS: BP 179/98; PULSE 98; RESP 17
[2022-05-11] MEDS: Omeprazole 20 MG CAPSULE.DR PO (05:36)
[2022-05-11] MEDS: Acetaminophen 325 MG TABLET 650 MG PO (05:37)
[2022-05-11 06:45] VITALS: BP 162/86; PULSE 105; RESP 17; O2SAT 95
--- NOTE | 2022-05-11 07:00 | CA_ITS ---
Transthoracic Echocardiogram Patient (Last, First, Middle): Izabel Edwards M Gender: Female Date of : 1940 Age: 82 Procedure Date: 05/11/2022 Procedure Type: Transthoracic Echocardiogram Location: ER Height: 165.1 cm Weight: 136.08 kg BSA: 2.35 m2 Heart Rate: bpm BP: 162 / 86 mmHg Senior Java Software Developer: SB Referring MD: Vic Billy MD Symptoms: NSVT Study Quality: Adequate/Contrast Conclusions: - Limited echo. - Normal left ventricular size and systolic function. There is mildly increased left ventricular wall thickness. The visually estimated ejection fraction is between 60-65%. - There is no evidence of regional wall motion abnormalities. - Mildly increased right ventricular cavity size. There is normal right ventricular systolic function. - Moderately elevated right atrial pressure. Mild pulmonary hypertension is present. Findings Procedure Information Contrast agent, definity, is being given per protocol without apparent complications. Left Ventricle Normal left ventricular size and systolic function. There is mildly increased left ventricular wall thickness. The visually estimated ejection fraction is between 60-65%. There is no evidence of regional wall motion abnormalities. Diastolic function is indeterminate on the basis of available data. There is severe septal asymmetric hypertrophy. Right Ventricle Mildly increased right ventricular cavity size. There is normal right ventricular systolic function. Tricuspid Valve Moderately elevated right atrial pressure. Mild pulmonary hypertension is present. Venous The inferior vena cava is dilated and collapses less than 50% with inspiration. Pericardium/Pleural There is no evidence of pericardial effusion. Prior Study Comparison Changes noted compared to prior study dated: 07/12/2020. Mildly dilated RV. Measurements 2D Linear Measurements IVSd: 1.44 0.6-0.9/0.6-1.0 cm LVIDd: 5.54 3.9-5.3/4.2-5.9 cm LVIDd Index: 2.36 2.4-3.2/2.2-3.1 cm/m2 LVIDs: 3.68 2.0-3.6 cm LVPWd: 1.05 0.7-1.1 cm LV Mass: 361.66 67-162/88-224 g LV Mass Index: 153.90 43-95/49-115 g/m2 2D Systolic Function EF 4C: 66.70 >55% EF 2C: 62.20 >55% EF BiP: 64.70 >55% LVOT LVOT Pk Sami: 0.89 LVOT Mn Sami: 0.65 LVOT VTI: 0.21 LVOT Pk Grad: 3.00 LVOT Mn Grad: 2.00 Right Ventricle TAPSE (mm): 13.20 TVS' Sami: 17.90 Tricuspid Valve TR Pk Sami: 2.58 TR Pk Grad: 27.00 RA Press: 15.00 RVSP: 42.00 Updated in Other Vendor System with Status of Final Alvaro Lyman MD electronically signed on 05/12/2022 9:29:41 AM with status of Final
[2022-05-11 07:35] LABS: Glucose, Whole Blood 187 mg/dL (60-115)
--- NOTE | 2022-05-11 08:00 | PC.NURSE ---
THIS ASSISTANT FARM OPERATIONS MANAGER ASSUMED CARE OF THIS PT AT 0700. RECEIVED REPORT FROM JOVITA HAYES. PT A+O X4, VSS.
[2022-05-11] MEDS: Insulin Lispro 100 UNIT/ML 3 ML VIAL SUBCUT ×2 (08:02→17:45)
[2022-05-11] MEDS: dexAMETHasone sod phosphate 4 MG/ML VIAL 6 MG IVPUSH (08:15)
[2022-05-11] MEDS: Loratadine 10 MG TABLET PO (08:16)
[2022-05-11] MEDS: Furosemide 40 MG TABLET 80 MG PO (08:16)
[2022-05-11] MEDS: guaiFENesin LA 600 MG TAB.ER.12H 1200 MG PO ×2 (08:16→21:23)
[2022-05-11] MEDS: allopurinoL 100 MG TABLET PO (08:16)
[2022-05-11] MEDS: Pravastatin Sodium 40 MG TABLET PO (08:17)
[2022-05-11] MEDS: 0.9 % Sodium Chloride Flush 3 ML SYRINGE IVFLUSH ×2 (08:21→17:46)
--- NOTE | 2022-05-11 09:45 | PC.NURSE ---
Cardizem and Lopid not loaded in overflow pyxis. This securities underwriter spoke with Leticia in pharmacy. Meds will be brought to the unit. Will administer meds when received from pharmacy.
--- NOTE | 2022-05-11 10:13 | MHC.CM.PN ---
met with pt who is indepedent and working ,pt lives with her 2 sons she is vax and has own transportion would rather have her physical therapy outpt instead of home pt
[2022-05-11 10:17] LABS: Alanine Aminotransferase 11 U/L (0-31); Alkaline Phosphatase 107 U/L (39-117); Aspartate Amino Transferase 15 U/L (5-31); Bilirubin Direct < 0.2 mg/dL (0.0-0.5); Bilirubin Total < 0.2 mg/dL (0.0-1.0); Total Protein 7.3 g/dL (6.5-8.0)
[2022-05-11] MEDS: dilTIAZem HCL CD 180 MG CAP.ER.24H 360 MG PO (10:23)
[2022-05-11] MEDS: gemfibroziL 600 MG TABLET PO (10:23)
--- NOTE | 2022-05-11 10:58 | P.CONCA_ITS ---
History of Present Illness History of Present Illness Date of Service: 05/11/22 Chief complaint: Covid-19, hypoxia, PVCs Narrative: 82-year-old female who has background history of hypertension and COPD who is presenting with shortness of breath and has been tested positive for COVID-19 i nfection. She is currently being treated with steroids and antibiotics. She was noted to have frequent premature ventricular complexes on the telemetry and we were asked to comment about it. She has felt some palpitations at home but currently is not feeling any palpitations and has PVCs on telemetry during the interview. Denying chest discomfort. She is saying her breathing is okay but was getting worse over the last few days along with productive cough. [facility] Past Medical History Medical History Arthritis COPD (chronic obstructive pulmonary disease) Dyslipidemia Hypertension Lymphedema Morbid obesity Type 2 diabetes mellitus Family History Family History Mother Coronary artery disease Surgical History Surgical History History of knee replacement Social History Social History Household Members: Spouse Housing: House Do you presently have visiting nurse or other home services: No Patient Tobacco Use Status: Never used Tobacco e-Cigarette/Vaping Use: Never Used Second Hand Smoke Exposure: No Use of substances other than those prescribed or required for medical reasons: No Advance Directives: No Advance Directives Information Provided: No service: No Current occupational status: retired [employer] Allergies Allergy/AdvReac Type Severity Reaction Status Date / Time mold [MOLD] Allergy Intermediate COUGHING, Verified 09/04/21 15:01 SINUS CONGESTION Penicillins [PENICILLINS] Allergy Intermediate REVERSE Verified 09/04/21 15:01 REACTION MAKES PT FEEL WORSE Active Medications: Current Medications Acetaminophen (Acetaminophen 325 Mg Tablet) 650 mg PO Q6H PRN PRN Reason: Pain, Mild (Pain Scale 1-3) Last Admin: 05/11/22 05:37 Dose: 650 mg Albuterol Sulfate (Albuterol Sulfate 90 Mcg 8 Gm Inhaler) 4 puff INHALE Q2H PRN PRN Reason: shortness of breath/wheeze Allopurinol (Allopurinol 100 Mg Tablet) 100 mg PO DAILY [facility] Last Admin: 05/11/22 08:16 Dose: 100 mg Dexamethasone Sodium Phosphate (Dexamethasone Sod Phosphate 4 Mg/Ml Vial) 6 mg IVPUSH DAILY [facility] Stop: 05/20/22 09:01 Last Admin: 05/11/22 08:15 Dose: 6 mg Dextrose (Dextrose 50 % 25 Gm/50 Ml Syringe) 25 gm IVPUSH Q15M PRN; Protocol PRN Reason: per Hypoglycemia Standing Ord. Diltiazem HCl (Diltiazem Hcl Cd 180 Mg Cap.Er.24h) 360 mg PO DAILY [facility]; Protocol Last Admin: 05/11/22 10:23 Dose: 360 mg Doxycycline Hyclate (Doxycycline Hyclate 100 Mg Tablet) 100 mg PO Q12H [facility] Last Admin: 05/11/22 05:36 Dose: 100 mg Enoxaparin Sodium (Enoxaparin Sodium 40 Mg/0.4 Ml Syringe) 40 mg SUBCUT Q24H [facility] Last Admin: 05/10/22 19:21 Dose: 40 mg Fluticasone Propionate (Fluticasone Propionate Nasal 16 Gm Peterson) 1 spray NOSTRIL-B DAILY PRN PRN Reason: Allergy Symptoms Furosemide (Furosemide 40 Mg Tablet) 80 mg PO DAILY [facility]; Protocol Last Admin: 05/11/22 08:16 Dose: 80 mg Gemfibrozil (Gemfibrozil 600 Mg Tablet) 600 mg PO DAILY [facility] Last Admin: 05/11/22 10:23 Dose: 600 mg Glucose (Glucose Gel 15 Gm Gel..Gram.) 15 gm PO Q15M PRN; Protocol PRN Reason: per Hypoglycemia Standing Ord. Guaifenesin (Guaifenesin La 600 Mg Tab.Er.12h) 1,200 mg PO Q12H [facility] Last Admin: 05/11/22 08:16 Dose: 1,200 mg Remdesivir 100 mg/ Sodium (Chloride) 230 mls @ 115 mls/hr IV Q24H [facility] Stop: 05/14/22 20:59 Insulin Human Lispro (Insulin Lispro 100 Unit/Ml 3 Ml Vial) 0 unit SUBCUT QIDACHS [facility]; Protocol Last Admin: 05/11/22 08:02 Dose: 2 unit Loratadine (Loratadine 10 Mg Tablet) 10 mg PO DAILY [facility] Last Admin: 05/11/22 08:16 Dose: 10 mg Metolazone (Metolazone 2.5 Mg Tablet) 2.5 mg PO Q48H [facility] Omeprazole (Omeprazole 20 Mg Capsule.Dr) 20 mg PO DAILY@0630 [facility] Last Admin: 05/11/22 05:36 Dose: 20 mg Ondansetron HCl (Ondansetron Hcl 4 Mg/2 Ml Vial) 4 mg IVPUSH Q8H PRN PRN Reason: Nausea and Vomiting Oxycodone HCl (Oxycodone Hcl Immed Release 5 Mg Tablet) 5 mg PO TID PRN PRN Reason: pain Last Admin: 05/11/22 10:27 Dose: 5 mg Oxymetazoline HCl (Oxymetazoline Hcl 0.05 % Nasal 15 Ml Peterson) 1 spray NOSTRIL- B Q12H [facility] Last Admin: 05/11/22 05:44 Dose: Not Given Pravastatin Sodium (Pravastatin Sodium 40 Mg Tablet) 40 mg PO DAILY [facility] Last Admin: 05/11/22 08:17 Dose: 40 mg Sodium Chloride (0.9 % Sodium Chloride Flush 3 Ml Syringe) 3 ml IVFLUSH QSHIFT [facility] Last Admin: 05/11/22 08:21 Dose: 3 ml Home Medications Medication Instructions Recorded Confirmed Last Taken Type allopurinol 100 mg tablet 100 mg PO DAILY 09/05/21 05/10/22 05/10/22 History diltiazem HCl 360 mg capsule,24 360 mg PO DAILY 09/05/21 05/10/22 05/10/22 History hr,extended release (Tiadylt ER) fluticasone propionate 50 1 spray intranasal DAILY PRN 09/05/21 05/10/22 05/10/22 History mcg/actuation nasal Allergy Symptoms spray,suspension furosemide 40 mg tablet 80 mg PO DAILY 09/05/21 05/10/22 05/10/22 History gemfibrozil 600 mg tablet 600 mg PO DAILY 09/05/21 05/10/22 05/10/22 History loratadine 10 mg tablet (Claritin) 10 mg PO DAILY 09/05/21 05/10/22 05/10/22 History meloxicam 15 mg tablet 15 mg PO DAILY 09/05/21 05/10/22 05/10/22 History metformin 500 mg tablet,extended 500 mg PO DAILY 11/12/2505/10/22 05/10/22 History release 24 hr metolazone 2.5 mg tablet 2.5 mg PO Q48H 09/05/21 05/10/22 05/10/22 History omeprazole 20 mg capsule,delayed 20 mg PO DAILY 09/05/21 05/10/22 05/10/22 History release pravastatin 40 mg tablet 40 mg PO DAILY 09/05/21 05/10/22 05/10/22 History guaifenesin 600 mg tablet, 1,200 mg PO Q12H 05/10/22 05/10/22 Unknown History extended release 12 hr (Mucinex) oxymetazoline 0.05 % nasal spray 1 spray intranasal Q12H 05/10/22 05/10/22 Unk nown History (Mucinex Sinus-Max) Physical Exam Vital Signs: Vital Signs: Last Vital Signs Temp 97.4 F 05/10/22 19:59 Pulse 105 H 05/11/22 06:45 Resp 17 05/11/22 06:45 BP 162/86 H 05/11/22 06:45 Pulse Ox 95 05/11/22 06:45 O2 Del Method 05/11/22 06:45 O2 Flow Rate 2 05/11/22 06:45 BMI result Body Mass Index 49.9 GENERAL APPEARANCE: in no acute distress, pleasant. NECK: no carotid bruit, no jugular venous distention. SKIN: no suspicious lesions, warm and dry. HEART: no murmurs, regular rate and rhythm. LUNGS: clear to auscultation bilaterally. ABDOMEN: soft, nontender. EXTREMITIES: Bilateral lymphedema. PERIPHERAL PULSES: equal. NEUROLOGIC: No gross deficits, AAO X 3 Objective Labs and Meds Result diagrams: 05/10/22 15:00 05/11/22 01:03 Lab results: Laboratory Results - last 24 hr 05/10/22 05/10/22 05/10/22 15:00 15:00 15:00 WBC 10.2 RBC 4.60 Hgb 14.4 Hct 44.9 MCV 97.6 MCH 31.3 MCHC 32.1 RDW 15.1 Plt Count 252 MPV 10.2 Immature Gran % (Auto) 0.5 H Neut % (Auto) 75.1 H Lymph % (Auto) 12.5 L Ford % (Auto) 9.0 Eos % (Auto) 2.5 Baso % (Auto) 0.4 Lymph # (Auto) 1.3 Ford # (Auto) 0.9 Eos # (Auto) 0.3 Baso # (Auto) 0.0 Abs Immat Gran (auto) 0.05 H Absolute Neuts (auto) 7.6 Absolute Nucleated RBC 0.000 Nucleated RBC % (auto) 0.0 PT INR APTT D-Dimer High Sensitivty Sodium 139 Potassium 4.7 Chloride 104 Carbon Dioxide 27 Anion Gap 13 BUN 18 H Creatinine 0.84 Estim Creat Clear Calc 74.7 Estimated GFR > 60 POC Glucose Random Glucose 97 Lactic Acid Calcium 9.1 D Magnesium Ferritin 73 Total Bilirubin Direct Bilirubin AST ALT Alkaline Phosphatase Lactate Dehydrogenase 167 Troponin I High Sens C-Reactive Protein 0.45 B-Natriuretic Peptide Total Protein Albumin Procalcitonin COVID-19 (ANTHONY) Positive A COVID-19 Clin Com See Note Influenza Type A (DUC) Influenza Type B (DUC) Influenza A & B Note 05/10/22 05/10/22 05/10/22 15:00 15:00 15:41 WBC RBC Hgb Hct MCV MCH MCHC RDW Plt Count MPV Immature Gran % (Auto) Neut % (Auto) Lymph % (Auto) Ford % (Auto) Eos % (Auto) Baso % (Auto) Lymph # (Auto) Ford # (Auto) Eos # (Auto) Baso # (Auto) Abs Immat Gran (auto) Absolute Neuts (auto) Absolute Nucleated RBC Nucleated RBC % (auto) PT INR APTT D-Dimer High Sensitivty Sodium Potassium Chloride Carbon Dioxide Anion Gap BUN Creatinine Estim Creat Clear Calc Estimated GFR POC Glucose Random Glucose Lactic Acid 0.8 Calcium Magnesium Ferritin Total Bilirubin Direct Bilirubin AST ALT Alkaline Phosphatase Lactate Dehydrogenase Troponin I High Sens C-Reactive Protein B-Natriuretic Peptide Total Protein Albumin Procalcitonin 0.03 COVID-19 (ANTHONY) COVID-19 Clin Com Influenza Type A (DUC) Negative Influenza Type B (DUC) Negative Influenza A & B Note See Note 05/10/22 05/10/22 05/10/22 15:42 15:42 20:34 WBC RBC Hgb Hct MCV MCH MCHC RDW Plt Count MPV Immature Gran % (Auto) Neut % (Auto) Lymph % (Auto) Ford % (Auto) Eos % (Auto) Baso % (Auto) Lymph # (Auto) Ford # (Auto) Eos # (Auto) Baso # (Auto) Abs Immat Gran (auto) Absolute Neuts (auto) Absolute Nucleated RBC Nucleated RBC % (auto) PT 10.6 INR 0.9 APTT 43.2 H D-Dimer High Sensitivty 168 Sodium Potassium Chloride Carbon Dioxide Anion Gap BUN Creatinine Estim Creat Clear Calc Estimated GFR POC Glucose 158 H Random Glucose Lactic Acid Calcium Magnesium Ferritin Total Bilirubin Direct Bilirubin AST ALT Alkaline Phosphatase Lactate Dehydrogenase Troponin I High Sens 8.3 C-Reactive Protein B-Natriuretic Peptide 186 H Total Protein Albumin Procalcitonin COVID-19 (ANTHONY) COVID-19 Clin Com Influenza Type A (DUC) Influenza Type B (DUC) Influenza A & B Note 05/11/22 05/11/22 01:03 07:11 WBC RBC Hgb Hct MCV MCH MCHC RDW Plt Count MPV Immature Gran % (Auto) Neut % (Auto) Lymph % (Auto) Ford % (Auto) Eos % (Auto) Baso % (Auto) Lymph # (Auto) Ford # (Auto) Eos # (Auto) Baso # (Auto) Abs Immat Gran (auto) Absolute Neuts (auto) Absolute Nucleated RBC Nucleated RBC % (auto) PT INR APTT D-Dimer High Sensitivty Sodium 138 Potassium 4.5 Chloride 105 Carbon Dioxide 24 Anion Gap 14 BUN 15 Creatinine 0.87 Estim Creat Clear Calc 72.1 Estimated GFR > 60 POC Glucose 187 H Random Glucose 172 H Lactic Acid Calcium 9.0 Magnesium 2.5 Ferritin Total Bilirubin < 0.2 Direct Bilirubin < 0.2 AST 15 ALT 11 Alkaline Phosphatase 107 Lactate Dehydrogenase Troponin I High Sens C-Reactive Protein B-Natriuretic Peptide Total Protein 7.3 Albumin 4.0 Procalcitonin COVID-19 (ANTHONY) COVID-19 Clin Com Influenza Type A (DUC) Influenza Type B (DUC) Influenza A & B Note Imaging Radiologist's impression: Impressions Chest X-Ray 05/10/22 17:06 IMPRESSION: Mild prominence of the pulmonary vasculature and cardiac silhouette may be secondary to lower lung volumes along with left basilar atelectasis however, mild congestion cannot be excluded. Assessment and Plan (1) COVID: Status: Acute (2) Hypertension: Status: Acute (3) PVC (premature ventricular contraction): Status: Acute Plan 82-year-old female with background of COPD and diastolic heart failure presenting for COVID-19 infection. She is on supplemental oxygen and is rec eiving steroids and antiviral is. She has PVCs on telemetry. These are asymptomatic PVCs. Recommend echocardiogram to assess LV function. Add carvedilol 3.125 mg twice a day to her regimen because blood pressure is elevated and she is mildly tachycardic also. I think the likely causes chest distress from infection and hypoxia. Monitor electrolytes closely. Thank you for allowing me to participate in the care of your patient. Please feel free to contact me if you have any questions. Procedures Date of Service Date of Service: 05/11/22
[2022-05-11 11:42] VITALS: BP 169/94; PULSE 98; RESP 16; O2SAT 95
[2022-05-11 12:23] LABS: Glucose, Whole Blood 126 mg/dL (60-115)
--- NOTE | 2022-05-11 12:45 | PC.NURSE ---
PT C/O OF BACK ACHE, PRN PAIN MED GIVEN DOCUMENTED. PT SEEN BY DR. MENESES. VSS.
--- NOTE | 2022-05-11 12:56 | P.PNIM_ITS ---
Subjective Subjective Date of Service: 05/11/22 Interval History: cc: sob interval history: still sob Cardiovascular Cardiovascular: Reports no additional cardiovascular complaints Respiratory Respiratory: Reports no additional respiratory complaints Physical Exam Vital Signs: Vital Signs: Last Vital Signs Temp 97.4 F 05/10/22 19:59 Pulse 98 05/11/22 11:42 Resp 16 05/11/22 11:42 BP 169/94 H 05/11/22 11:42 Pulse Ox 95 05/11/22 11:42 O2 Del Method 05/11/22 11:42 O2 Flow Rate 4 05/11/22 11:42 BMI result Body Mass Index 49.9 General: AO X 3, dyspneic Resp: Crackles, wheeses bilateral, accessory muscles used CVS: S1,S2,RRR GI: soft, non tender, non distended Neuro: motor grossly intact, alert Psych: appropriate affect, appropriate insight Objective Data Active Medications Acetaminophen (Acetaminophen 325 Mg Tablet) 650 mg PO Q6H PRN PRN Reason: Pain, Mild (Pain Scale 1-3) Last Admin: 05/11/22 05:37 Dose: 650 mg Documented By: BOBBY Albuterol Sulfate (Albuterol Sulfate 90 Mcg 8 Gm Inhaler) 4 puff INHALE Q2H PRN PRN Reason: shortness of breath/wheeze Allopurinol (Allopurinol 100 Mg Tablet) 100 mg PO DAILY [facility] Last Admin: 05/11/22 08:16 Dose: 100 mg Documented By: MIKE Carvedilol (Carvedilol 3.125 Mg Tablet) 3.125 mg PO BID [facility]; Protocol Dexamethasone Sodium Phosphate (Dexamethasone Sod Phosphate 4 Mg/Ml Vial) 6 mg IVPUSH DAILY [facility] Stop: 05/20/22 09:01 Last Admin: 05/11/22 08:15 Dose: 6 mg Documented By: MIKE Dextrose (Dextrose 50 % 25 Gm/50 Ml Syringe) 25 gm IVPUSH Q15M PRN; Protocol PRN Reason: per Hypoglycemia Standing Ord. Diltiazem HCl (Diltiazem Hcl Cd 180 Mg Cap.Er.24h) 360 mg PO DAILY [facility]; Protocol Last Admin: 05/11/22 10:23 Dose: 360 mg Documented By: MIKE Doxycycline Hyclate (Doxycycline Hyclate 100 Mg Tablet) 100 mg PO Q12H [facility] Last Admin: 05/11/22 05:36 Dose: 100 mg Documented By: BOBBY Enoxaparin Sodium (Enoxaparin Sodium 40 Mg/0.4 Ml Syringe) 40 mg SUBCUT Q24H [facility] Last Admin: 05/10/22 19:21 Dose: 40 mg Documented By: FELY Fluticasone Propionate (Fluticasone Propionate Nasal 16 Gm [place]) 1 spray NOSTRIL-B DAILY PRN PRN Reason: Allergy Symptoms Furosemide (Furosemide 40 Mg Tablet) 80 mg PO DAILY [facility]; Protocol Last Admin: 05/11/22 08:16 Dose: 80 mg Documented By: MIKE Gemfibrozil (Gemfibrozil 600 Mg Tablet) 600 mg PO DAILY [facility] Last Admin: 05/11/22 10:23 Dose: 600 mg Documented By: MIKE Glucose (Glucose Gel 15 Gm Gel..Gram.) 15 gm PO Q15M PRN; Protocol PRN Reason: per Hypoglycemia Standing Ord. Guaifenesin (Guaifenesin La 600 Mg Tab.Er.12h) 1,200 mg PO Q12H [facility] Last Admin: 05/11/22 08:16 Dose: 1,200 mg Documented By: MIKE Remdesivir 100 mg/ Sodium (Chloride) 230 mls @ 115 mls/hr IV Q24H [facility] Stop: 05/14/22 20:59 Insulin Human Lispro (Insulin Lispro 100 Unit/Ml 3 Ml Vial) 0 unit SUBCUT QIDACHS [facility]; Protocol Last Admin: 05/11/22 12:53 Dose: Not Given Documented By: MIKE Non-Admin Reason: No Insulin Coverage Loratadine (Loratadine 10 Mg Tablet) 10 mg PO DAILY [facility] Last Admin: 05/11/22 08:16 Dose: 10 mg Documented By: MIKE Metolazone (Metolazone 2.5 Mg Tablet) 2.5 mg PO Q48H [facility] Omeprazole (Omeprazole 20 Mg Capsule.Dr) 20 mg PO DAILY@0630 [facility] Last Admin: 05/11/22 05:36 Dose: 20 mg Documented By: BOBBY Ondansetron HCl (Ondansetron Hcl 4 Mg/2 Ml Vial) 4 mg IVPUSH Q8H PRN PRN Reason: Nausea and Vomiting Oxycodone HCl (Oxycodone Hcl Immed Release 5 Mg Tablet) 5 mg PO TID PRN PRN Reason: pain Last Admin: 05/11/22 10:27 Dose: 5 mg Documented By: MIKE Oxymetazoline HCl (Oxymetazoline Hcl 0.05 % Nasal 15 Ml [place]) 1 spray NOSTRIL- B Q12H [facility] Last Admin: 05/11/22 05:44 Dose: Not Given Documented By: BOBBY Non-Admin Reason: Med Not Available Pravastatin Sodium (Pravastatin Sodium 40 Mg Tablet) 40 mg PO DAILY [facility] Last Admin: 05/11/22 08:17 Dose: 40 mg Documented By: MIKE Sodium Chloride (0.9 % Sodium Chloride Flush 3 Ml Syringe) 3 ml IVFLUSH QSHIFT [facility] Last Admin: 05/11/22 08:21 Dose: 3 ml Documented By: MIKE Labs CBC & Chem 7: 05/10/22 15:00 05/11/22 01:03 Labs: Laboratory Results - last 24 hr 05/10/22 05/10/22 05/10/22 15:00 15:00 15:00 MCV 97.6 MCH 31.3 MCHC 32.1 RDW 15.1 Plt Count 252 MPV 10.2 Immature Gran % (Auto) 0.5 H Neut % (Auto) 75.1 H Lymph % (Auto) 12.5 L [place] % (Auto) 9.0 Eos % (Auto) 2.5 Baso % (Auto) 0.4 Lymph # (Auto) 1.3 [place] # (Auto) 0.9 Eos # (Auto) 0.3 Baso # (Auto) 0.0 Abs Immat Gran (auto) 0.05 H Absolute Neuts (auto) 7.6 Absolute Nucleated RBC 0.000 Nucleated RBC % (auto) 0.0 PT INR APTT D-Dimer High Sensitivty Anion Gap 13 Estim Creat Clear Calc 74.7 Estimated GFR > 60 POC Glucose Random Glucose 97 Lactic Acid Calcium 9.1 D Magnesium Ferritin 73 Total Bilirubin Direct Bilirubin AST ALT Alkaline Phosphatase Lactate Dehydrogenase 167 Troponin I High Sens C-Reactive Protein 0.45 B-Natriuretic Peptide Total Protein Albumin Procalcitonin COVID-19 (ANTHONY) Positive A COVID-19 Clin Com See Note Influenza Type A (DUC) Influenza Type B (DUC) Influenza A & B Note 07/07/22 07/07/22 07/07/22 15:00 15:00 15:41 MCV MCH MCHC RDW Plt Count MPV Immature Gran % (Auto) Neut % (Auto) Lymph % (Auto) [place] % (Auto) Eos % (Auto) Baso % (Auto) Lymph # (Auto) [place] # (Auto) Eos # (Auto) Baso # (Auto) Abs Immat Gran (auto) Absolute Neuts (auto) Absolute Nucleated RBC Nucleated RBC % (auto) PT INR APTT D-Dimer High Sensitivty Anion Gap Estim Creat Clear Calc Estimated GFR POC Glucose Random Glucose Lactic Acid 0.8 Calcium Magnesium Ferritin Total Bilirubin Direct Bilirubin AST ALT Alkaline Phosphatase Lactate Dehydrogenase Troponin I High Sens C-Reactive Protein B-Natriuretic Peptide Total Protein Albumin Procalcitonin 0.03 COVID-19 (ANTHONY) COVID-19 Clin Com Influenza Type A (DUC) Negative Influenza Type B (DUC) Negative Influenza A & B Note See Note 05/10/22 05/10/22 05/10/22 15:42 15:42 20:34 MCV MCH MCHC RDW Plt Count MPV Immature Gran % (Auto) Neut % (Auto) Lymph % (Auto) [place] % (Auto) Eos % (Auto) Baso % (Auto) Lymph # (Auto) [place] # (Auto) Eos # (Auto) Baso # (Auto) Abs Immat Gran (auto) Absolute Neuts (auto) Absolute Nucleated RBC Nucleated RBC % (auto) PT 10.6 INR 0.9 APTT 43.2 H D-Dimer High Sensitivty 168 Anion Gap Estim Creat Clear Calc Estimated GFR POC Glucose 158 H Random Glucose Lactic Acid Calcium Magnesium Ferritin Total Bilirubin Direct Bilirubin AST ALT Alkaline Phosphatase Lactate Dehydrogenase Troponin I High Sens 8.3 C-Reactive Protein B-Natriuretic Peptide 186 H Total Protein Albumin Procalcitonin COVID-19 (ANTHONY) COVID-19 Clin Com Influenza Type A (DUC) Influenza Type B (DUC) Influenza A & B Note 05/11/22 05/11/22 05/11/22 01:03 07:11 12:14 MCV MCH MCHC RDW Plt Count MPV Immature Gran % (Auto) Neut % (Auto) Lymph % (Auto) [place] % (Auto) Eos % (Auto) Baso % (Auto) Lymph # (Auto) [place] # (Auto) Eos # (Auto) Baso # (Auto) Abs Immat Gran (auto) Absolute Neuts (auto) Absolute Nucleated RBC Nucleated RBC % (auto) PT INR APTT D-Dimer High Sensitivty Anion Gap 14 Estim Creat Clear Calc 72.1 Estimated GFR > 60 POC Glucose 187 H 126 H Random Glucose 172 H Lactic Acid Calcium 9.0 Magnesium 2.5 Ferritin Total Bilirubin < 0.2 Direct Bilirubin < 0.2 AST 15 ALT 11 Alkaline Phosphatase 107 Lactate Dehydrogenase Troponin I High Sens C-Reactive Protein B-Natriuretic Peptide Total Protein 7.3 Albumin 4.0 Procalcitonin COVID-19 (ANTHONY) COVID-19 Clin Com Influenza Type A (DUC) Influenza Type B (DUC) Influenza A & B Note Assessment and Plan (1) COVID: Status: Acute Plan 82yoF with risk factors of COPD, DM2, HTN, HFpEF, and morbid obesity presenting with 2 days of worsening dyspnea and cough, found to be positive for Covid-19 and hypoxic. acute hypoxic respiratory fialure due to Covid-19 infection high risk for progression to severe disease continue dexamethasone 6 mg/d day 2/10d, day2/5d of remdesivir, and trend inflammatory markers. COPD exacerbation - steroids as above, plus inhaled albuterol; doxycycline HFpEF - continue furosemide + metolazone frequent pvcs coreg, echo HLD - continue pravastatin + gemfibrozil HTN - continue diltiazem, adding coreg # DM2 - correction-dose lispro; hold MTF VTE prophylaxis: LMWH code status: DNR/DNI reason for continued hospitalization:onoging sob, hypoxia Quality Stroke Does the patient have a stroke diagnosis?: No VTE Prior VTE?: No VTE Risk Level:: Medical - moderate - high VTE Device Contraindication: N/A - Device Ordered VTE Drug Contraindication: N/A - Med Ordered
--- NOTE | 2022-05-11 13:28 | MHC.CM.PN ---
pt in overflow ,pt is covid positive pt is vax x 3 per they had no servceis prior to admisison and do not anticapate needing services when dcd will transport home
--- NOTE | 2022-05-11 15:10 | PC.NURSE ---
BEDSIDE CARDIAC ECHO BEING DONE AT THIS TIME.
[2022-05-11 16:00] VITALS: BP 162/84; PULSE 95; RESP 16; TEMP 36.6; O2SAT 98
[2022-05-11 17:15] LABS: Glucose, Whole Blood 185 mg/dL (60-115)
--- NOTE | 2022-05-11 18:57 | PC.NURSE ---
PATIENT DOES ALL CARE FOR HERSELF ,USE BEDSIDE COMMODE ,ATE 50 % OF MEALS .
[2022-05-11] MEDS: Remdesivir 100 MG in 0.9 % Sodium Chloride 230 ML 115 MG IV (19:20)
[2022-05-11] MEDS: Enoxaparin Sodium 40 MG/0.4 ML SYRINGE SUBCUT (19:32)
[2022-05-11 20:00] VITALS: BP 169/95; PULSE 84; RESP 16; TEMP 36.6; O2SAT 98
[2022-05-11 21:19] LABS: Glucose, Whole Blood 145 mg/dL (60-115)
[2022-05-11] MEDS: carvediloL 3.125 MG TABLET PO (21:23)
--- NOTE | 2022-05-11 22:01 | PC.NURSE ---
pt requesting melatonin and additional medication for pain, aware.
[2022-05-12] MEDS: Melatonin 3 MG TABLET 6 MG PO (00:38)
[2022-05-12] MEDS: 0.9 % Sodium Chloride Flush 3 ML SYRINGE IVFLUSH ×2 (00:38→23:32)
--- NOTE | 2022-05-12 02:17 | PC.NURSE ---
RESTING COMF.MED WITH MELATONIN 6MG PO AT 0040 WITH GOOD EFFECT,MONITOR SR WITH PVC'S.LUNGS DIM WITH OCC DEBBIE NON PROD COUGH.O2 ON.NO RESP DISTRESS.EDEMA TO LOWER EXT.
[2022-05-12 04:12] VITALS: BP 160/84; PULSE 86; RESP 18; TEMP 36.6; O2SAT 97
--- NOTE | 2022-05-12 04:40 | PC.NURSE ---
FOUND OOB AMB OUTSIDE OF ROOM,O2 OFF.MONITOR OFF,CONFUSED AGITATED AND COMBATTIVE.DIFFICULT TO REDIRECT BACK TO ROOM.REFUSING O2 AND MONITOR.SECURITY CALLED.NURSING [employer] TECHNICIAN NOTIFIED.DR VASQUEZ NOTIFIED. ORDERED ZYPREXA 5MG IM STAT. MED GIVEN.PT CALMER AFTER.ABLE TO PUT O2 AND MONITOR BACK ON.
[2022-05-12] MEDS: OLANZapine 10 MG VIAL 5 MG IM (05:30)
[2022-05-12] MEDS: Omeprazole 20 MG CAPSULE.DR PO (05:32)
[2022-05-12 07:58] LABS: Glucose, Whole Blood 114 mg/dL (60-115)
[2022-05-12 08:11] LABS: Hematocrit 46.5 % (37.0-47.0); Hemoglobin 14.8 g/dl (12.0-16.0); Mean Corpuscular HGB Conc 31.8 g/dl (31.0-35.0); Mean Corpuscular Hemoglobin 31.7 pg (27.0-33.0); Mean Corpuscular Volume 99.6 fL (80.0-98.0); Mean Platelet Volume 10.7 fL (9.4-12.3); Platelet Count 247 X10*3/uL (160-400); Red Blood Count 4.67 X10*6/uL (4.20-5.50); Red Cell Distribution Width 14.8 % (11.0-16.0); White Blood Count 13.1 X10*3/uL (4.8-10.8)
[2022-05-12 08:25] VITALS: BP 151/80; PULSE 96; RESP 16; O2SAT 97
[2022-05-12 08:42] LABS: Alanine Aminotransferase 10 U/L (0-31); Alkaline Phosphatase 101 U/L (39-117); Anion Gap 14 (12-20); Aspartate Amino Transferase 13 U/L (5-31); Bilirubin Total 0.3 mg/dL (0.0-1.0); Blood Urea Nitrogen 23 mg/dL (9-16); C Reactive Protein 0.24 mg/dL (< or = 0.50); Calcium 9.6 mg/dL (8.4-10.2); Carbon Dioxide 28 mmol/L (22-29); Chloride 103 mmol/L (96-108); Creatinine Clr Calc Pharmacy 75.6; Estimated Glomerular Filt Rate > 60; Glucose Random 140 mg/dL (60-115); Potassium 5.1 mmol/L (3.3-5.1); Sodium 140 mmol/L (135-145); Total Protein 7.4 g/dL (6.5-8.0)
--- NOTE | 2022-05-12 10:49 | P.PNIM_ITS ---
Subjective Subjective Date of Service: 05/12/22 Interval History: cc: sob interval history:unchanged Cardiovascular Cardiovascular: Reports no additional cardiovascular complaints Respiratory Respiratory: Reports no additional respiratory complaints Physical Exam Vital Signs: Vital Signs: Last Vital Signs Temp 97.8 F 05/12/22 04:12 Pulse 96 05/12/22 08:25 Resp 16 05/12/22 08:25 BP 151/80 H 05/12/22 08:25 Pulse Ox 97 05/12/22 08:25 O2 Del Method 05/12/22 08:25 O2 Flow Rate 4 05/12/22 08:25 BMI result Body Mass Index 49.9 General: AO X 3, dyspneic Resp: Crackles, wheeses bilateral, accessory muscles used CVS: S1,S2,RRR GI: soft, non tender, non distended Neuro: motor grossly intact, alert Psych: appropriate affect, appropriate insight Objective Data Active Medications Acetaminophen (Acetaminophen 325 Mg Tablet) 650 mg PO Q6H PRN PRN Reason: Pain, Mild (Pain Scale 1-3) Last Admin: 05/11/22 05:37 Dose: 650 mg Documented By: BOBBY Albuterol Sulfate (Albuterol Sulfate 90 Mcg 8 Gm Inhaler) 4 puff INHALE Q2H PRN PRN Reason: shortness of breath/wheeze Allopurinol (Allopurinol 100 Mg Tablet) 100 mg PO DAILY [facility] Last Admin: 05/11/22 08:16 Dose: 100 mg Documented By: MIKE Carvedilol (Carvedilol 3.125 Mg Tablet) 3.125 mg PO BID [facility]; Protocol Last Admin: 05/11/22 21:23 Dose: 3.125 mg Documented By: FELY Dexamethasone Sodium Phosphate (Dexamethasone Sod Phosphate 4 Mg/Ml Vial) 6 mg IVPUSH DAILY [facility] Stop: 05/20/22 09:01 Last Admin: 05/11/22 08:15 Dose: 6 mg Documented By: MIKE Dextrose (Dextrose 50 % 25 Gm/50 Ml Syringe) 25 gm IVPUSH Q15M PRN; Protocol PRN Reason: per Hypoglycemia Standing Ord. Diltiazem HCl (Diltiazem Hcl Cd 180 Mg Cap.Er.24h) 360 mg PO DAILY [facility]; Protocol Last Admin: 05/11/22 10:23 Dose: 360 mg Documented By: MIKE Doxycycline Hyclate (Doxycycline Hyclate 100 Mg Tablet) 100 mg PO Q12H [facility] Last Admin: 05/12/22 05:32 Dose: 100 mg Documented By: MORENA Enoxaparin Sodium (Enoxaparin Sodium 40 Mg/0.4 Ml Syringe) 40 mg SUBCUT Q24H [facility] Last Admin: 05/11/22 19:32 Dose: 40 mg Documented By: FELY Fluticasone Propionate (Fluticasone Propionate Nasal 16 Gm [place]) 1 spray NOSTRIL-B DAILY PRN PRN Reason: Allergy Symptoms Furosemide (Furosemide 40 Mg Tablet) 80 mg PO DAILY [facility]; Protocol Last Admin: 05/11/22 08:16 Dose: 80 mg Documented By: MIKE Gemfibrozil (Gemfibrozil 600 Mg Tablet) 600 mg PO DAILY [facility] Last Admin: 05/11/22 10:23 Dose: 600 mg Documented By: MIKE Glucose (Glucose Gel 15 Gm Gel..Gram.) 15 gm PO Q15M PRN; Protocol PRN Reason: per Hypoglycemia Standing Ord. Guaifenesin (Guaifenesin La 600 Mg Tab.Er.12h) 1,200 mg PO Q12H [facility] Last Admin: 05/11/22 21:23 Dose: 1,200 mg Documented By: FELY Remdesivir 100 mg/ Sodium (Chloride) 230 mls @ 115 mls/hr IV Q24H [facility] Stop: 05/14/22 20:59 Last Infusion: 05/11/22 21:56 Dose: 0 mls/hr Documented By: FELY Insulin Human Lispro (Insulin Lispro 100 Unit/Ml 3 Ml Vial) 0 unit SUBCUT QIDA [facility]; Protocol Last Admin: 05/11/22 21:43 Dose: Not Given Documented By: FELY Non-Admin Reason: No Insulin Coverage Loratadine (Loratadine 10 Mg Tablet) 10 mg PO DAILY [facility] Last Admin: 05/11/22 08:16 Dose: 10 mg Documented By: MIKE Melatonin (Melatonin 3 Mg Tablet) 6 mg PO BEDTIME PRN PRN Reason: Sleep Last Admin: 05/12/22 00:38 Dose: 6 mg Documented By: MORENA Metolazone (Metolazone 2.5 Mg Tablet) 2.5 mg PO Q48H [facility] Omeprazole (Omeprazole 20 Mg Capsule.Dr) 20 mg PO DAILY@0630 [facility] Last Admin: 05/12/22 05:32 Dose: 20 mg Documented By: MROENA Ondansetron HCl (Ondansetron Hcl 4 Mg/2 Ml Vial) 4 mg IVPUSH Q8H PRN PRN Reason: Nausea and Vomiting Oxycodone HCl (Oxycodone Hcl Immed Release 5 Mg Tablet) 5 mg PO TID PRN PRN Reason: pain Last Admin: 05/11/22 19:26 Dose: 5 mg Documented By: FELY Oxymetazoline HCl (Oxymetazoline Hcl 0.05 % Nasal 15 Ml [place]) 1 spray NOSTRIL- B Q12H [facility] Last Admin: 05/12/22 05:36 Dose: Not Given Documented By: MORENA Non-Admin Reason: Med Not Available Pravastatin Sodium (Pravastatin Sodium 40 Mg Tablet) 40 mg PO DAILY [facility] Last Admin: 05/11/22 08:17 Dose: 40 mg Documented By: MIKE Sodium Chloride (0.9 % Sodium Chloride Flush 3 Ml Syringe) 3 ml IVFLUSH QSHIFT [facility] Last Admin: 05/12/22 00:38 Dose: 3 ml Documented By: MORENA Labs CBC & Chem 7: 05/12/22 07:50 05/12/22 07:50 Labs: Laboratory Results - last 24 hr 05/11/22 05/11/22 05/11/22 12:14 17:08 21:05 MCV MCH MCHC RDW Plt Count MPV Absolute Nucleated RBC Nucleated RBC % (auto) Anion Gap Estim Creat Clear Calc Estimated GFR POC Glucose 126 H 185 H 145 H Random Glucose Calcium Total Bilirubin AST ALT Alkaline Phosphatase C-Reactive Protein Total Protein Albumin 05/12/22 05/12/22 05/12/22 07:22 07:50 07:50 MCV 99.6 H MCH 31.7 MCHC 31.8 RDW 14.8 Plt Count 247 MPV 10.7 Absolute Nucleated RBC 0.000 Nucleated RBC % (auto) 0.0 Anion Gap 14 Estim Creat Clear Calc 75.6 Estimated GFR > 60 POC Glucose 114 Random Glucose 140 H Calcium 9.6 D Total Bilirubin 0.3 AST 13 ALT 10 Alkaline Phosphatase 101 C-Reactive Protein 0.24 Total Protein 7.4 Albumin 4.0 Microbiology Microbiology Results: Microbiology 05/10/22 15:57 Blood Culture - Preliminary Blood - Venous No growth after 24 hours. 05/10/22 15:42 Blood Culture - Preliminary Blood - Venous No growth after 24 hours. Assessment and Plan (1) COVID: Status: Acute Plan 82yoF with risk factors of COPD, DM2, HTN, HFpEF, and morbid obesity presenting with 2 days of worsening dyspnea and cough, found to be positive for Covid-19 and hypoxic. acute hypoxic respiratory fialure due to Covid-19 infection high risk for progression to severe disease continue dexamethasone 6 mg/d day 3/10d, day3/5d of remdesivir, and trend inflammatory markers. COPD exacerbation - steroids as above, plus inhaled albuterol; doxycycline HFpEF with acute decompensation - continue furosemide + metolazone will add lasix 60 iv times one, montior frequent pvcs coreg, echo HLD - continue pravastatin + gemfibrozil HTN - continue diltiazem, adding coreg # DM2 - correction-dose lispro; hold MTF VTE prophylaxis: LMWH code status: DNR/DNI reason for continued hospitalization:onoging sob, hypoxia Quality Stroke Does the patient have a stroke diagnosis?: No VTE Prior VTE?: No VTE Risk Level:: Medical - moderate - high VTE Device Contraindication: N/A - Device Ordered VTE Drug Contraindication: N/A - Med Ordered
[2022-05-12] MEDS: Pravastatin Sodium 40 MG TABLET PO (11:28)
[2022-05-12] MEDS: guaiFENesin LA 600 MG TAB.ER.12H 1200 MG PO ×2 (11:28→21:32)
[2022-05-12] MEDS: dilTIAZem HCL CD 180 MG CAP.ER.24H 360 MG PO (11:28)
[2022-05-12] MEDS: gemfibroziL 600 MG TABLET PO (11:28)
[2022-05-12] MEDS: Loratadine 10 MG TABLET PO (11:29)
[2022-05-12] MEDS: dexAMETHasone sod phosphate 4 MG/ML VIAL 6 MG IVPUSH (11:29)
[2022-05-12] MEDS: carvediloL 3.125 MG TABLET PO ×2 (11:29→21:32)
[2022-05-12] MEDS: allopurinoL 100 MG TABLET PO (11:29)
[2022-05-12] MEDS: Furosemide 100 MG/10 ML VIAL 60 MG IVPUSH ×2 (11:29→18:54)
[2022-05-12] MEDS: metOLazone 2.5 MG TABLET PO (11:30)
[2022-05-12 13:29] LABS: Glucose, Whole Blood 106 mg/dL (60-115)
[2022-05-12 13:35] VITALS: BP 145/82; PULSE 89; RESP 22; O2SAT 94
[2022-05-12] MEDS: Acetaminophen 325 MG TABLET 650 MG PO ×2 (15:32→23:31)
[2022-05-12] MEDS: oxyCODONE HCl Immed Release 5 MG TABLET PO ×2 (15:32→23:30)
--- NOTE | 2022-05-12 18:14 | PC.NURSE ---
covid precautions maintained. call altamirano within reach. safety and fall precautions maintained. pt repo self and ambulates self w/o assist. poc maintained. pt alert and pleasant this shift.
[2022-05-12 18:19] VITALS: BP 154/85; PULSE 84; RESP 18; TEMP 36.9; O2SAT 97
[2022-05-12 18:24] LABS: Glucose, Whole Blood 146 mg/dL (60-115)
[2022-05-12] MEDS: Remdesivir 100 MG in 0.9 % Sodium Chloride 230 ML 115 MG IV (18:55)
[2022-05-12] MEDS: Enoxaparin Sodium 40 MG/0.4 ML SYRINGE SUBCUT (18:55)
[2022-05-12] MEDS: Oxymetazoline HCl 0.05 % Nasal 15 ML SPRAY 1 SPRAY NOSTRIL-B (18:55)
--- NOTE | 2022-05-12 19:38 | PC.NURSE ---
Addendum entered by Rosy Wang RN 05/12/22 20:57: 20:57 Second attempt to call report, awaiting call back. Original Note: Attempted to give report, nurse will call back when available.
[2022-05-12 21:22] VITALS: BP 162/87; PULSE 90; RESP 20; O2SAT 94
[2022-05-12 21:31] LABS: Glucose, Whole Blood 188 mg/dL (60-115)
[2022-05-12] MEDS: Insulin Lispro 100 UNIT/ML 3 ML VIAL SUBCUT (21:32)
[2022-05-12 22:50] VITALS: BP 154/81; PULSE 94; RESP 20; TEMP 36.6; O2SAT 94
[2022-05-12 23:11] VITALS: BMI 49.8
[2022-05-13 03:59] VITALS: BP 163/82; PULSE 85; RESP 20; TEMP 36.4; O2SAT 94
[2022-05-13] MEDS: Omeprazole 20 MG CAPSULE.DR PO (05:29)
[2022-05-13 07:05] LABS: Hematocrit 45.6 % (37.0-47.0); Hemoglobin 14.8 g/dl (12.0-16.0); Mean Corpuscular HGB Conc 32.5 g/dl (31.0-35.0); Mean Corpuscular Hemoglobin 31.8 pg (27.0-33.0); Mean Corpuscular Volume 97.9 fL (80.0-98.0); Mean Platelet Volume 10.8 fL (9.4-12.3); Platelet Count 263 X10*3/uL (160-400); Red Blood Count 4.66 X10*6/uL (4.20-5.50); Red Cell Distribution Width 14.7 % (11.0-16.0); White Blood Count 11.7 X10*3/uL (4.8-10.8)
[2022-05-13 07:28] LABS: Anion Gap 14 (12-20); Blood Urea Nitrogen 35 mg/dL (9-16); Calcium 9.2 mg/dL (8.4-10.2); Carbon Dioxide 31 mmol/L (22-29); Chloride 97 mmol/L (96-108); Creatinine Clr Calc Pharmacy 67.4; Estimated Glomerular Filt Rate 58; Glucose Fasting 128 mg/dL (60-99); Magnesium 2.2 mg/dL (1.6-2.6); Potassium 3.6 mmol/L (3.3-5.1); Sodium 138 mmol/L (135-145)
[2022-05-13 07:33] VITALS: BP 145/78; PULSE 80; RESP 20; TEMP 36.5; O2SAT 95
[2022-05-13 07:49] LABS: Glucose, Whole Blood 118 mg/dL (60-115)
[2022-05-13] MEDS: guaiFENesin LA 600 MG TAB.ER.12H 1200 MG PO ×2 (08:46→20:25)
[2022-05-13] MEDS: allopurinoL 100 MG TABLET PO (08:47)
[2022-05-13] MEDS: dilTIAZem HCL CD 180 MG CAP.ER.24H 360 MG PO (08:47)
[2022-05-13] MEDS: Pravastatin Sodium 40 MG TABLET PO (08:47)
[2022-05-13] MEDS: carvediloL 3.125 MG TABLET PO ×2 (08:47→20:26)
[2022-05-13] MEDS: gemfibroziL 600 MG TABLET PO (08:47)
[2022-05-13] MEDS: Loratadine 10 MG TABLET PO (08:48)
[2022-05-13] MEDS: oxyCODONE HCl Immed Release 5 MG TABLET PO ×2 (08:48→18:49)
[2022-05-13] MEDS: dexAMETHasone sod phosphate 4 MG/ML VIAL 6 MG IVPUSH (08:49)
[2022-05-13] MEDS: Furosemide 100 MG/10 ML VIAL 60 MG IVPUSH ×2 (08:49→18:44)
[2022-05-13] MEDS: 0.9 % Sodium Chloride Flush 3 ML SYRINGE IVFLUSH ×3 (08:50→20:26)
--- NOTE | 2022-05-13 10:00 | HO.PM.IMPN ---
Subjective Subjective Date of Service: 05/13/22 Interval History: cc: sob interval history:improving today Cardiovascular Cardiovascular: Reports no additional cardiovascular complaints Respiratory Respiratory: Reports no additional respiratory complaints Physical Exam Vital Signs: Vital Signs: Last Vital Signs Temp 97.7 F 05/13/22 07:33 Pulse 80 05/13/22 07:33 Resp 20 05/13/22 07:33 BP 145/78 H 05/13/22 07:33 Pulse Ox 95 05/13/22 07:33 O2 Del Method 05/13/22 07:33 O2 Flow Rate 3 05/13/22 07:33 BMI result Body Mass Index 49.8 General: AO X 3, dyspneic Resp: Cta bilateral, accessory muscles used CVS: S1,S2,RRR GI: soft, non tender, non distended Neuro: motor grossly intact, alert Psych: appropriate affect, appropriate insight Objective Data Active Medications Acetaminophen (Acetaminophen 325 Mg Tablet) 650 mg PO Q6H PRN PRN Reason: Pain, Mild (Pain Scale 1-3) Last Admin: 05/12/22 23:31 Dose: 650 mg Documented By: BALTA Albuterol Sulfate (Albuterol Sulfate 90 Mcg 8 Gm Inhaler) 4 puff INHALE Q2H PRN PRN Reason: shortness of breath/wheeze Allopurinol (Allopurinol 100 Mg Tablet) 100 mg PO DAILY [facility] Last Admin: 05/13/22 08:47 Dose: 100 mg Documented By: ETHEL Carvedilol (Carvedilol 3.125 Mg Tablet) 3.125 mg PO BID [facility]; Protocol Last Admin: 05/13/22 08:47 Dose: 3.125 mg Documented By: ETHEL Dexamethasone Sodium Phosphate (Dexamethasone Sod Phosphate 4 Mg/Ml Vial) 6 mg IVPUSH DAILY [facility] Stop: 05/20/22 09:01 Last Admin: 05/13/22 08:49 Dose: 6 mg Documented By: ETHEL Dextrose (Dextrose 50 % 25 Gm/50 Ml Syringe) 25 gm IVPUSH Q15M PRN; Protocol PRN Reason: per Hypoglycemia Standing Ord. Diltiazem HCl (Diltiazem Hcl Cd 180 Mg Cap.Er.24h) 360 mg PO DAILY [facility]; Protocol Last Admin: 05/13/22 08:47 Dose: 360 mg Documented By: ETHEL Doxycycline Hyclate (Doxycycline Hyclate 100 Mg Tablet) 100 mg PO Q12H [facility] Last Admin: 05/13/22 05:29 Dose: 100 mg Documented By: BALTA Enoxaparin Sodium (Enoxaparin Sodium 40 Mg/0.4 Ml Syringe) 40 mg SUBCUT Q24H [facility] Last Admin: 05/12/22 18:55 Dose: 40 mg Documented By: DESMOND-SOFFA Fluticasone Propionate (Fluticasone Propionate Nasal 16 Gm [place]) 1 spray NOSTRIL-B DAILY PRN PRN Reason: Allergy Symptoms Furosemide (Furosemide 100 Mg/10 Ml Vial) 60 mg IVPUSH BID@0900,1800 [facility]; Protocol Last Admin: 05/13/22 08:49 Dose: 60 mg Documented By: ETHEL Gemfibrozil (Gemfibrozil 600 Mg Tablet) 600 mg PO DAILY [facility] Last Admin: 05/13/22 08:47 Dose: 600 mg Documented By: ETHEL Glucose (Glucose Gel 15 Gm Gel..Gram.) 15 gm PO Q15M PRN; Protocol PRN Reason: per Hypoglycemia Standing Ord. Guaifenesin (Guaifenesin La 600 Mg Tab.Er.12h) 1,200 mg PO Q12H [facility] Last Admin: 05/13/22 08:46 Dose: 1,200 mg Documented By: ETHEL Remdesivir 100 mg/ Sodium (Chloride) 230 mls @ 115 mls/hr IV Q24H [facility] Stop: 05/14/22 20:59 Last Infusion: 05/12/22 23:34 Dose: 0 mls/hr Documented By: BALTA Insulin Human Lispro (Insulin Lispro 100 Unit/Ml 3 Ml Vial) 0 unit SUBCUT QIDACHS ON [facility]; Protocol Last Admin: 05/13/22 07:58 Dose: Not Given Documented By: LUIS ANGEL Non-Admin Reason: No Insulin Coverage Loratadine (Loratadine 10 Mg Tablet) 10 mg PO DAILY [facility] Last Admin: 05/13/22 08:48 Dose: 10 mg Documented By: ETHEL Melatonin (Melatonin 3 Mg Tablet) 6 mg PO BEDTIME PRN PRN Reason: Sleep Last Admin: 05/12/22 00:38 Dose: 6 mg Documented By: MORENA Metolazone (Metolazone 2.5 Mg Tablet) 2.5 mg PO Q48H [facility] Last Admin: 05/12/22 11:30 Dose: 2.5 mg Documented By: SAE Omeprazole (Omeprazole 20 Mg Capsule.Dr) 20 mg PO DAILY@0630 [facility] Last Admin: 05/13/22 05:29 Dose: 20 mg Documented By: BALTA Ondansetron HCl (Ondansetron Hcl 4 Mg/2 Ml Vial) 4 mg IVPUSH Q8H PRN PRN Reason: Nausea and Vomiting Oxycodone HCl (Oxycodone Hcl Immed Release 5 Mg Tablet) 5 mg PO TID PRN PRN Reason: pain Last Admin: 05/13/22 08:48 Dose: 5 mg Documented By: ETHEL Oxymetazoline HCl (Oxymetazoline Hcl 0.05 % Nasal 15 Ml [place]) 1 spray NOSTRIL-B Q12H ON [facility] OF [facility] Last Admin: 05/13/22 05:30 Dose: Not Given Documented By: BALTA Non-Admin Reason: Patient Refused Pravastatin Sodium (Pravastatin Sodium 40 Mg Tablet) 40 mg PO DAILY [facility] Last Admin: 05/13/22 08:47 Dose: 40 mg Documented By: ETHEL Sodium Chloride (0.9 % Sodium Chloride Flush 3 Ml Syringe) 3 ml IVFLUSH QSHIFT ON LICENSE OF [facility] Last Admin: 05/13/22 08:50 Dose: 3 ml Documented By: ETHEL Labs CBC & Chem 7: 05/13/22 06:37 05/13/22 06:37 Labs: Laboratory Results - last 24 hr 05/12/22 05/12/22 05/12/22 13:07 18:17 21:27 MCV MCH MCHC RDW Plt Count MPV Absolute Nucleated RBC Nucleated RBC % (auto) Anion Gap Estim Creat Clear Calc Estimated GFR POC Glucose 106 146 H 188 H Fasting Glucose Calcium Magnesium 05/13/22 05/13/22 05/13/22 06:37 06:37 07:27 MCV 97.9 MCH 31.8 MCHC 32.5 RDW 14.7 Plt Count 263 MPV 10.8 Absolute Nucleated RBC 0.000 Nucleated RBC % (auto) 0.0 Anion Gap 14 Estim Creat Clear Calc 67.4 Estimated GFR 58 POC Glucose 118 H Fasting Glucose 128 H Calcium 9.2 Magnesium 2.2 Microbiology Microbiology Results: Microbiology 05/10/22 15:57 Blood Culture - Preliminary Blood - Venous No growth after 48 hours. 05/10/22 15:42 Blood Culture - Preliminary Blood - Venous No growth after 48 hours. Assessment and Plan (1) COVID: Status: Acute Plan 82yoF with risk factors of COPD, DM2, HTN, HFpEF, and morbid obesity presenting with 2 days of worsening dyspnea and cough, found to be positive for Covid-19 and hypoxic. acute hypoxic respiratory failure due to Covid-19 infection high risk for progression to severe disease continue dexamethasone 6 mg/d day 4/10d, day4/5d of remdesivir, and trend inflammatory markers. COPD exacerbation - steroids as above, plus inhaled albuterol; doxycycline HFpEF with acute decompensation - continue iv furosemide + metolazone monitor frequent pvcs coreg, echo HLD - continue pravastatin + gemfibrozil HTN - continue diltiazem, adding coreg # DM2 - correction-dose lispro; hold MTF VTE prophylaxis: LMWH code status: DNR/DNI reason for continued hospitalization:onoging sob, hypoxia, iv diuresis Quality Stroke Does the patient have a stroke diagnosis?: No VTE Prior VTE?: No VTE Risk Level:: Medical - moderate - high VTE Device Contraindication: N/A - Device Ordered VTE Drug Contraindication: N/A - Med Ordered
[2022-05-13 11:08] VITALS: BP 137/79; PULSE 87; RESP 18; TEMP 36.6; O2SAT 96
[2022-05-13 11:32] LABS: Glucose, Whole Blood 172 mg/dL (60-115)
[2022-05-13] MEDS: Insulin Lispro 100 UNIT/ML 3 ML VIAL SUBCUT ×2 (12:47→20:25)
[2022-05-13 15:59] LABS: Glucose, Whole Blood 139 mg/dL (60-115)
[2022-05-13 16:00] VITALS: BP 153/79; PULSE 73; RESP 18; TEMP 37; O2SAT 92
[2022-05-13] MEDS: Enoxaparin Sodium 40 MG/0.4 ML SYRINGE SUBCUT (18:45)
[2022-05-13] MEDS: Remdesivir 100 MG in 0.9 % Sodium Chloride 230 ML 115 MG IV (18:49)
--- NOTE | 2022-05-13 19:02 | PC.NURSE ---
Pt refuses high fall precautions. Pt provided education on moderate fall risk level and need for 1 assist standby to supervise in bathroom, bed alarm. Pt refuses bed alarm, nonskid socks. Encouraged to ring for assistance.
[2022-05-13 20:00] VITALS: BP 151/80; PULSE 90; RESP 17; TEMP 36.3; O2SAT 93
[2022-05-13 20:13] LABS: Glucose, Whole Blood 180 mg/dL (60-115)
[2022-05-13] MEDS: Melatonin 3 MG TABLET 6 MG PO (21:47)
[2022-05-13 23:32] VITALS: BP 160/81; PULSE 76; RESP 18; TEMP 37.1; O2SAT 94
[2022-05-14 04:00] VITALS: BP 141/84; PULSE 68; RESP 20; TEMP 37.1; O2SAT 94
[2022-05-14] MEDS: Fluticasone Propionate Nasal 16 GM SPRAY 1 SPRAY NOSTRIL-B (05:53)
[2022-05-14] MEDS: Omeprazole 20 MG CAPSULE.DR PO (05:55)
[2022-05-14 06:27] LABS: Hematocrit 47.5 % (37.0-47.0); Hemoglobin 15.6 g/dl (12.0-16.0); Mean Corpuscular HGB Conc 32.8 g/dl (31.0-35.0); Mean Corpuscular Volume 97.3 fL (80.0-98.0); Mean Platelet Volume 10.7 fL (9.4-12.3); Platelet Count 267 X10*3/uL (160-400); Red Blood Count 4.88 X10*6/uL (4.20-5.50); Red Cell Distribution Width 14.6 % (11.0-16.0); White Blood Count 11.3 X10*3/uL (4.8-10.8)
[2022-05-14 06:39] LABS: Anion Gap 13 (12-20); Blood Urea Nitrogen 45 mg/dL (9-16); Calcium 9.4 mg/dL (8.4-10.2); Carbon Dioxide 36 mmol/L (22-29); Chloride 93 mmol/L (96-108); Estimated Glomerular Filt Rate 46; Glucose Fasting 122 mg/dL (60-99); Sodium 138 mmol/L (135-145)
[2022-05-14 07:50] LABS: Glucose, Whole Blood 124 mg/dL (60-115)
[2022-05-14 08:56] VITALS: BP 154/82; PULSE 77; RESP 17; TEMP 36; O2SAT 95
[2022-05-14] MEDS: Loratadine 10 MG TABLET PO (09:01)
[2022-05-14] MEDS: dilTIAZem HCL CD 180 MG CAP.ER.24H 360 MG PO (09:01)
[2022-05-14] MEDS: allopurinoL 100 MG TABLET PO (09:01)
[2022-05-14] MEDS: Pravastatin Sodium 40 MG TABLET PO (09:01)
[2022-05-14] MEDS: carvediloL 3.125 MG TABLET PO ×2 (09:01→19:54)
[2022-05-14] MEDS: guaiFENesin LA 600 MG TAB.ER.12H 1200 MG PO ×2 (09:01→19:54)
[2022-05-14] MEDS: gemfibroziL 600 MG TABLET PO (09:02)
[2022-05-14] MEDS: metOLazone 2.5 MG TABLET PO (09:02)
[2022-05-14] MEDS: Acetaminophen 325 MG TABLET 650 MG PO (09:02)
[2022-05-14] MEDS: Furosemide 100 MG/10 ML VIAL 60 MG IVPUSH ×2 (09:02→17:22)
[2022-05-14] MEDS: 0.9 % Sodium Chloride Flush 3 ML SYRINGE IVFLUSH ×2 (09:03→17:21)
[2022-05-14] MEDS: dexAMETHasone sod phosphate 4 MG/ML VIAL 6 MG IVPUSH (09:03)
[2022-05-14 11:26] LABS: Glucose, Whole Blood 210 mg/dL (60-115)
[2022-05-14] MEDS: Insulin Lispro 100 UNIT/ML 3 ML VIAL SUBCUT ×2 (11:55→21:03)
[2022-05-14 12:06] VITALS: BP 191/96; PULSE 103; RESP 18; TEMP 36.2; O2SAT 96
--- NOTE | 2022-05-14 12:35 | P.PNIM_ITS ---
Subjective Subjective Date of Service: 05/14/22 Interval History: Seen and examined this morning Follow-up for COVID-19, COPD, CHF Patient reports breathing is improving, intermittent cough Denies fever, chills Review of Systems Review of Systems: Yes all other systems are reviewed and are negative Constitutional Constitutional: Denies chills and Denies fever(s) Cardiovascular Cardiovascular: Denies chest pain and Denies dyspnea Respiratory Respiratory: Reports cough and Denies dyspnea Gastrointestinal Gastrointestinal: Denies nausea and Denies vomiting Physical Exam Vital Signs: Vital Signs: Last Vital Signs Temp 97.2 F 05/14/22 12:06 Pulse 103 H 05/14/22 12:06 Resp 18 05/14/22 12:06 BP 191/96 H 05/14/22 12:06 Pulse Ox 96 05/14/22 12:06 O2 Del Method 05/14/22 12:06 O2 Flow Rate 3 05/14/22 12:06 BMI result Body Mass Index 49.8 Const: General: cooperative, comfortable, no acute distress, alert and awake Nutritional Appearance: obese Orientation/consciousness: patient oriented x3 Resp: Effort & Inspection: normal respiratory effort and able to speak in complete sentences Auscultation: diminished lung sounds Cardio: Rate: regular rate Heart sounds: S1 normal heart sound present and S2 normal heart sound present GI: Palpation (GI): Soft to palpation and nontender Neuro: General: patient oriented x3 Extrem: Other: Trace leg edema Objective Data Active Medications Acetaminophen (Acetaminophen 325 Mg Tablet) 650 mg PO Q6H PRN PRN Reason: Pain, Mild (Pain Scale 1-3) Last Admin: 05/14/22 09:02 Dose: 650 mg Documented By: PANCHITO Albuterol Sulfate (Albuterol Sulfate 90 Mcg 8 Gm Inhaler) 4 puff INHALE Q2H PRN PRN Reason: shortness of breath/wheeze Allopurinol (Allopurinol 100 Mg Tablet) 100 mg PO DAILY [facility] Last Admin: 05/14/22 09:01 Dose: 100 mg Documented By: PANCHITO Carvedilol (Carvedilol 3.125 Mg Tablet) 3.125 mg PO BID [facility]; Protocol Last Admin: 05/14/22 09:01 Dose: 3.125 mg Documented By: PANCHITO Dexamethasone Sodium Phosphate (Dexamethasone Sod Phosphate 4 Mg/Ml Vial) 6 mg IVPUSH DAILY [facility] Stop: 05/20/22 09:01 Last Admin: 05/14/22 09:03 Dose: 6 mg Documented By: PANCHITO Dextrose (Dextrose 50 % 25 Gm/50 Ml Syringe) 25 gm IVPUSH Q15M PRN; Protocol PRN Reason: per Hypoglycemia Standing Ord. Diltiazem HCl (Diltiazem Hcl Cd 180 Mg Cap.Er.24h) 360 mg PO DAILY [facility]; Protocol Last Admin: 05/14/22 09:01 Dose: 360 mg Documented By: PANCHITO Doxycycline Hyclate (Doxycycline Hyclate 100 Mg Tablet) 100 mg PO Q12H [facility] Last Admin: 05/14/22 05:55 Dose: 100 mg Documented By: AMY Enoxaparin Sodium (Enoxaparin Sodium 40 Mg/0.4 Ml Syringe) 40 mg SUBCUT Q24H [facility] Last Admin: 05/13/22 18:45 Dose: 40 mg Documented By: ETHEL Fluticasone Propionate (Fluticasone Propionate Nasal 16 Gm [place]) 1 spray NO STRIL-B DAILY PRN PRN Reason: Allergy Symptoms Last Admin: 05/14/22 05:53 Dose: 1 spray Documented By: AMY Furosemide (Furosemide 100 Mg/10 Ml Vial) 60 mg IVPUSH BID@0900,1800 [facility]; Protocol Last Admin: 05/14/22 09:02 Dose: 60 mg Documented By: PANCHITO Gemfibrozil (Gemfibrozil 600 Mg Tablet) 600 mg PO DAILY [facility] Last Admin: 05/14/22 09:02 Dose: 600 mg Documented By: PANCHITO Glucose (Glucose Gel 15 Gm Gel..Gram.) 15 gm PO Q15M PRN; Protocol PRN Reason: per Hypoglycemia Standing Ord. Guaifenesin (Guaifenesin La 600 Mg Tab.Er.12h) 1,200 mg PO Q12H [facility] Last Admin: 05/14/22 09:01 Dose: 1,200 mg Documented By: PANCHITO Remdesivir 100 mg/ Sodium (Chloride) 230 mls @ 115 mls/hr IV Q24H [facility] Stop: 05/14/22 20:59 Last Infusion: 05/13/22 21:45 Dose: 0 mls/hr Documented By: TAVARES Insulin Human Lispro (Insulin Lispro 100 Unit/Ml 3 Ml Vial) 0 unit SUBCUT QIDACHS [facility]; Protocol Last Admin: 05/14/22 11:55 Dose: 4 unit Documented By: PANCHITO Loratadine (Loratadine 10 Mg Tablet) 10 mg PO DAILY [facility] Last Admin: 05/14/22 09:01 Dose: 10 mg Documented By: PANCHITO Melatonin (Melatonin 3 Mg Tablet) 6 mg PO BEDTIME PRN PRN Reason: Sleep Last Admin: 05/13/22 21:47 Dose: 6 mg Documented By: TAVARES Metolazone (Metolazone 2.5 Mg Tablet) 2.5 mg PO Q48H [facility] Last Admin: 05/14/22 09:02 Dose: 2.5 mg Documented By: PANCHITO Omeprazole (Omeprazole 20 Mg Capsule.Dr) 20 mg PO DAILY@0630 [facility] Last Admin: 05/14/22 05:55 Dose: 20 mg Documented By: AMY Ondansetron HCl (Ondansetron Hcl 4 Mg/2 Ml Vial) 4 mg IVPUSH Q8H PRN PRN Reason: Nausea and Vomiting Oxycodone HCl (Oxycodone Hcl Immed Release 5 Mg Tablet) 5 mg PO TID PRN PRN Reason: pain Last Admin: 05/13/22 18:49 Dose: 5 mg Documented By: LUIS ANGEL Oxymetazoline HCl (Oxymetazoline Hcl 0.05 % Nasal 15 Ml [place]) 1 spray NOSTRIL- B Q12H [facility] Last Admin: 05/14/22 06:01 Dose: Not Given Documented By: AMY Non-Admin Reason: Med Not Available Pravastatin Sodium (Pravastatin Sodium 40 Mg Tablet) 40 mg PO DAILY [facility] Last Admin: 05/14/22 09:01 Dose: 40 mg Documented By: PANCHITO Sodium Chloride (0.9 % Sodium Chloride Flush 3 Ml Syringe) 3 ml IVFLUSH QSHIFT [facility] Last Admin: 05/14/22 09:03 Dose: 3 ml Documented By: PANCHITO Labs CBC & Chem 7: 05/14/22 06:18 05/14/22 06:18 Labs: Laboratory Results - last 24 hr 05/13/22 05/13/22 05/14/22 15:25 19:34 06:18 MCV 97.3 MCH 32.0 MCHC 32.8 RDW 14.6 Plt Count 267 MPV 10.7 Absolute Nucleated RBC 0.000 Nucleated RBC % (auto) 0.0 Anion Gap Estim Creat Clear Calc Estimated GFR POC Glucose 139 H 180 H Fasting Glucose Calcium 05/14/22 05/14/22 05/14/22 06:18 07:31 10:59 MCV MCH MCHC RDW Plt Count MPV Absolute Nucleated RBC Nucleated RBC % (auto) Anion Gap 13 Estim Creat Clear Calc 55.0 Estimated GFR 46 POC Glucose 124 H 210 H Fasting Glucose 122 H Calcium 9.4 Assessment and Plan (1) COVID: Status: Acute Plan 82yoF with risk factors of COPD, DM2, HTN, HFpEF, and morbid obesity presenting with 2 days of worsening dyspnea and cough, found to be positive for Covid-19 and hypoxic. acute hypoxic respiratory failure due to Covid-19 infection high risk for progression to severe disease continue dexamethasone day 5/10d, day 5/5d of remdesivir COPD exacerbation - steroids as above, plus inhaled albuterol; doxycycline HFpEF with acute decompensation - continue iv furosemide + metolazone -repeat chest x-ray, likely change to p.o. Lasix in a.m. frequent pvcs coreg echo done-showing preserved EF, mild pulmonary hypertension HLD - continue pravastatin + gemfibrozil HTN - continue diltiazem, adding coreg DM2 - correction-dose lispro; hold MTF VTE prophylaxis: LMWH code status: DNR/DNI Attending-Dr. Pinzon reason for continued hospitalization:onoging sob, hypoxia, iv diuresis Quality Stroke Does the patient have a stroke diagnosis?: No VTE Prior VTE?: No VTE Risk Level:: Medical - moderate - high VTE Device Contraindication: N/A - Device Ordered VTE Drug Contraindication: N/A - Med Ordered
--- NOTE | 2022-05-14 14:55 | MHC.CM.PN ---
Female 82 DX Covid+ Per MD rounds no discharge today. DP is home no services. Family will provide transportation. A Financial services consult has been sent. The patient is vaccinated x 3.
[2022-05-14 15:39] VITALS: BP 160/77; PULSE 80; RESP 15; TEMP 36.8; O2SAT 95
[2022-05-14 15:49] LABS: Glucose, Whole Blood 114 mg/dL (60-115)
[2022-05-14] MEDS: Oxymetazoline HCl 0.05 % Nasal 15 ML SPRAY 1 SPRAY NOSTRIL-B (17:23)
[2022-05-14 19:28] VITALS: BP 181/86; PULSE 89; RESP 18; TEMP 36.9; O2SAT 95
[2022-05-14] MEDS: Enoxaparin Sodium 40 MG/0.4 ML SYRINGE SUBCUT (19:54)
[2022-05-14] MEDS: Remdesivir 100 MG in 0.9 % Sodium Chloride 230 ML 115 MG IV (20:43)
[2022-05-14 20:52] LABS: Glucose, Whole Blood 249 mg/dL (60-115)
[2022-05-14] MEDS: oxyCODONE HCl Immed Release 5 MG TABLET PO (23:26)
[2022-05-14 23:45] VITALS: BP 158/90; PULSE 87; RESP 18; TEMP 37.1; O2SAT 3
[2022-05-15] MEDS: 0.9 % Sodium Chloride Flush 3 ML SYRINGE IVFLUSH ×2 (00:49→10:17)
[2022-05-15 04:00] VITALS: BP 177/86; PULSE 77; RESP 20; TEMP 36.8; O2SAT 93
[2022-05-15] MEDS: Omeprazole 20 MG CAPSULE.DR PO (05:45)
[2022-05-15] MEDS: Oxymetazoline HCl 0.05 % Nasal 15 ML SPRAY 1 SPRAY NOSTRIL-B (05:46)
[2022-05-15 07:18] LABS: Glucose, Whole Blood 140 mg/dL (60-115)
[2022-05-15 07:24] VITALS: BP 148/65; PULSE 68; RESP 18; TEMP 36.1; O2SAT 93
[2022-05-15 07:39] LABS: Blood Urea Nitrogen 46 mg/dL (9-16); Calcium 9.2 mg/dL (8.4-10.2); Creatinine Clr Calc Pharmacy 66.7; Estimated Glomerular Filt Rate 57; Glucose Random 133 mg/dL (60-115)
[2022-05-15 07:48] LABS: Anion Gap 16 (12-20); Carbon Dioxide 35 mmol/L (22-29); Chloride 90 mmol/L (96-108); Potassium 2.7 mmol/L (3.3-5.1); Sodium 138 mmol/L (135-145)
[2022-05-15] MEDS: Furosemide 40 MG TABLET 80 MG PO (10:17)
[2022-05-15] MEDS: Potassium Chloride Packet 20 MEQ PACKET 40 MEQ PO ×2 (10:17→10:33)
[2022-05-15] MEDS: dilTIAZem HCL CD 180 MG CAP.ER.24H 360 MG PO (10:18)
[2022-05-15] MEDS: Pravastatin Sodium 40 MG TABLET PO (10:18)
[2022-05-15] MEDS: guaiFENesin LA 600 MG TAB.ER.12H 1200 MG PO (10:18)
[2022-05-15] MEDS: carvediloL 3.125 MG TABLET PO (10:18)
[2022-05-15] MEDS: allopurinoL 100 MG TABLET PO (10:18)
[2022-05-15] MEDS: gemfibroziL 600 MG TABLET PO (10:18)
[2022-05-15] MEDS: Loratadine 10 MG TABLET PO (10:19)
[2022-05-15] MEDS: dexAMETHasone sod phosphate 4 MG/ML VIAL 6 MG IVPUSH (10:19)
[2022-05-15] MEDS: Insulin Lispro 100 UNIT/ML 3 ML VIAL SUBCUT (11:35)
[2022-05-15 11:38] LABS: Glucose, Whole Blood 167 mg/dL (60-115)
[2022-05-15 11:42] VITALS: BP 151/81; RESP 20; TEMP 36.6; O2SAT 95
[2022-05-15 11:50] VITALS: PULSE 91; PULSE 95; O2SAT 114; O2SAT 96
--- NOTE | 2022-05-15 11:53 | P.DS_ITS ---
DS: Providers Provider Date of Service: 05/15/22 Date of admission: 05/10/22 18:01 Primary care physician: Jovanny Carter MD Consults: 05/11/22 00:59 Consult to Cardiology Routine Consulting Provider: Alvaro Lyman Reason for consultation: NSVT; freq PVCs; DS: Diagnosis Discharge Diagnosis (1) COVID: Status: Acute (2) Acute respiratory failure with hypoxia: Status: Acute (3) Hypertension: Status: Acute DS: Summary Hospital Course Hospital Course: Admission note HPI 82yoF with COPD [with history of home O2 dependence after admission here in September but weaned off], HTN, HFpEF, DM2, and lymphedema who lives at home with her and is independent in ADLs.? She presents with 2 days of worsening cough productive of white sputum, dyspnea, and rib pain.? No fever or chills.? Endorses sinus headache/congestion.? No sore throat.? No nausea or vomiting.? No sick contacts.? She had the [employer] mRNA Covid-19 vaccine series plus 1 booster in July 2021.? She presented with hypoxia with SaO2 85 on room air.? CXR showed mild pulmonary vascular prominence.? Covid-19 ANTHONY was positive.? CRP low at 0.45.? She was given 2g of IV magnesium sulfate, a Duoneb nebulization treatment, and 125 mg of IV methylprednisolone Hospital course The patient was admitted to the hospital for treatment of acute hypoxic respiratory failure secondary to COVID-19 infection associated with acute decompensation of diastolic CHF. Treated mainly with IV steroids, remdesivir, IV Lasix, bronchodilator inhalers and oxygen supplement with significant improvement over the course of hospital stay as the Lasix was changed to p.o. and she finished 5 days of remdesivir. Were able to wean off the oxygen and ambulate on room air with the help of respiratory therapist maintaining her oxygen level above 90. Doxycycline was added for underlying COPD exacerbation. blood pressure was noted to be elevated. Amlodipine was added at time of discharge with a plan to follow-up with PCP for further adjustments of her medications. Evaluated by respiratory therapist for home oxygen but she did not qualify. Evaluated by Physical therapy who recommended home therapy at time of discharge. Continue dexamethasone as prescribed Continue doxycycline for 2 more days Start amlodipine and monitor your blood pressure at home, report 1 week readings to your PCP for further adjustments of the medications. Time Spent with Patient Time attestation: Total time spent providing and/or coordinating discharge services: Discharge coordination time: Greater than 30 minutes Quality: Safe Use of Opioids Does Pt have an Active Cancer Diagnosis on the Problem List?: No Quality: Stroke Does the patient have a stroke diagnosis?: No Physical Exam Vital Signs: Vital Signs: Last Vital Signs Temp 97.9 F 05/15/22 11:42 Pulse 68 05/15/22 07:24 Resp 20 05/15/22 11:42 BP 151/81 H 05/15/22 11:42 Pulse Ox 95 05/15/22 11:42 O2 Del Method 05/15/22 11:42 O2 Flow Rate 3 05/15/22 11:42 BMI result Body Mass Index 49.8 Const: Other: Constitutional : Alert, oriented, not in distress Neck : Normal inspection, Supple Cardiovascular : RRR, no JVP, trace bilateral lower extremity edema Respiratory : fair bilateral air entry, no crackles, wheezes or rhonchi Gastrointestinal: soft, lax, Normal bowel sounds, Non tender Skin : Warm, Dry Neurological : Alert & oriented x3, No focal deficit , CN 2-12 within normal DS: Data Data Completed and Pending Labs on day of discharge: Laboratory Results - last 24 hr 05/14/22 05/14/22 05/15/22 15:36 20:46 06:41 Sodium 138 Potassium 2.7 L D Chloride 90 L Carbon Dioxide 35 H Anion Gap 16 BUN 46 H Creatinine 0.94 Estim Creat Clear Calc 66.7 Estimated GFR 57 POC Glucose 114 249 H Random Glucose 133 H Calcium 9.2 05/15/22 05/15/22 07:15 11:32 Sodium Potassium Chloride Carbon Dioxide Anion Gap BUN Creatinine Estim Creat Clear Calc Estimated GFR POC Glucose 140 H 167 H Random Glucose Calcium Preliminary micro results at discharge 05/10/22 15:57 Blood Culture - Preliminary Blood - Venous No growth after 48 hours. 05/10/22 15:42 Blood Culture - Preliminary Blood - Venous No growth after 48 hours. Imaging Chest x-ray: Radiologist's impression: ITS Impressions Chest X-Ray 05/10/22 17:06 IMPRESSION: Mild prominence of the pulmonary vasculature and cardiac silhouette may be secondary to lower lung volumes along with left basilar atelectasis however, mild congestion cannot be excluded. Chest X-Ray 05/14/22 13:09 IMPRESSION: Subsegmental atelectasis at the left lung base. Discharge Plan Discharge Patient Disposition: Home Health Service Discharge Diagnosis: Hypoxic respiratory failure COVID-19 infection Referrals: Jovanny Carter MD [Primary Care Provider] - 1 Week Discharge Medications: New doxycycline hyclate 100 mg Tablet 100 mg PO Q12H 2 Days Qty: 4 0RF dexamethasone 6 mg tablet 6 mg PO DAILY Qty: 4 0RF amlodipine 5 mg tablet 5 mg PO DAILY Qty: 30 0RF Continued oxycodone-acetaminophen [Percocet] 5-325 mg tablet 1 tab PO TID PRN (Reason: pain) Qty: 14 0RF furosemide 40 mg tablet 80 mg PO DAILY metolazone 2.5 mg tablet 2.5 mg PO Q48H pravastatin 40 mg tablet 40 mg PO DAILY meloxicam 15 mg tablet 15 mg PO DAILY diltiazem HCl [Tiadylt ER] 360 mg capsule,extended release 24 hr 360 mg PO DAILY allopurinol 100 mg tablet 100 mg PO DAILY gemfibrozil 600 mg tablet 600 mg PO DAILY omeprazole 20 mg capsule,delayed release(DR/EC) 20 mg PO DAILY fluticasone propionate 50 mcg/actuation [place],Suspension 1 spray INTRANASAL DAILY PRN (Reason: Allergy Symptoms) metformin 500 mg tablet extended release 24 hr 500 mg PO DAILY loratadine [Claritin] 10 mg Tablet 10 mg PO DAILY oxymetazoline [Mucinex Sinus-Max] 0.05 % [place],Non-Aerosol 1 spray INTRANASAL Q12H guaifenesin [Mucinex] 600 mg Tablet Extended Release 12hr 1,200 mg PO Q12H Discharge Orders: Discharge Order (Routine); Ordered 05/15/22 Ordered By: Onofre Galvan Diet: Low salt diet Activity on Discharge: As tolerated Stand Alone Forms: Patient Portal Discharge page Care Plan Goals: Read below Health Concerns: Read below Plan of Treatment: Read below Assessment: You were admitted to the hospital for evaluation of difficulty breathing. Found to have low oxygen level associated with COVID-19 infection. Admitted to the hospital and treated with IV steroids, remdesivir, antibiotic and oxygen supplement with good response over the course of hospital stay as you were weaned off the oxygen and became able to ambulate on room air with no drop in your oxygen level. Continue dexamethasone as prescribed Continue doxycycline for 2 more days Start amlodipine and monitor your blood pressure at home, report 1 week readings to your PCP for further adjustments of the medications.
--- NOTE | 2022-05-15 11:56 | W.MHC.F2F ---
Service Date Service Date: 05/15/22 Encounter Date of encounter: 05/15/22 Reasons for Services Signs and symptoms assessed: Physical deconditioning Reason for physical therapy: home safety and mobility and therapeutic exercises Homebound: Leaving the home is medically contraindicated at this time without the asist of a device and/or another person due th the listed conditions above and below. Reason homebound: unsteady gait / fall risk Certification: Based on the above findings, I certify that this patient is confined to the home and needs intermittent long term care, physical therapy and/or speech therapy, or continues to need occupational therapy. The patient is under my care, and I have initiated the establishment of the plan of care. The patient will be followed by a physician who will periodically review the plan of care.
--- NOTE | 2022-05-15 13:44 | MHC.CM.PN ---
Patient has been medically cleared for dc to home today, with new VNA. CM spoke with Patient/, who did not have a preference TO which vna WAS OBTAINED. a REFERRAL WAS MADE TO [facility], WHO HAS BEEN MADE AWARE OF TODAY's dc and can SOC for PT only on 05/17/22. IMM was addressed.
== END 2022-05-15 13:39 | disposition home health service (06) | DRG 177 ==
LOC: HO.ED 15:43 → HO.EDOVER 18:48 → HO.IMC 05-12 19:24
PROVIDERS: Hospitalist; Internal Medicine; Physician Assistant; Physician Assistant Medical; Admitting Provider Family Medicine; Emergency Provider Emergency Medicine; PCP Internal Medicine; Visit Provider Student in an Organized Health Care Education/Training Program
DX: U07.1 COVID-19 (principal); I50.33 Acute on chronic diastolic (congestive) heart failure; J96.01 Acute respiratory failure with hypoxia; J44.1 Chronic obstructive pulmonary disease with (acute) exacerbation; Z68.42 Body mass index [BMI] 45.0-49.9, adult; I11.0 Hypertensive heart disease with heart failure; Z66 Do not resuscitate; I49.3 Ventricular premature depolarization; E66.01 Morbid (severe) obesity due to excess calories; E78.5 Hyperlipidemia, unspecified; E11.9 Type 2 diabetes mellitus without complications; Z88.0 Allergy status to penicillin; Z79.51 Long term (current) use of inhaled steroids; Z79.899 Other long term (current) drug therapy
CPT/HCPCS: 36415; 71045; 80048; 80053; 80076; 82728; 82947; 83605; 83615; 83735; 83880; 84145; 84484; 85025; 85027; 85379; 85610; 85730; 86140; 87040; 87502; 87635; 93005; 93308; 94640; 96365; 96366; 96375; 97161; 99285; J0248; J1100; J1650; J1940; J2930; J3475; Q9957

== ENCOUNTER 2022-06-18 09:59 | Outpatient (REF) | payer MEDICARE, SELFPAY ==
[2022-06-18 10:17] LABS: MANUAL DIFF FLAG NO
[2022-06-18 10:48] LABS: Basophils Absolute Auto 0.1 X10*3/uL (0.0-0.2); Basophils Percent Auto 0.5 % (0-2); Eosinophils Absolute Auto 0.1 X10*3/uL (0.0-0.4); Eosinophils Percent Auto 1.1 % (0-4); Hematocrit 43.9 % (37.0-47.0); Hemoglobin 14.3 g/dl (12.0-16.0); Imm Gran Abs Auto 0.27 X10*3/uL (0.00-0.03); Imm Gran Pct Auto 2.4 % (0.0-0.4); Lymphocytes Absolute Auto 1.2 X10*3/uL (1.2-4.9); Lymphocytes Percent Auto 10.9 % (20-40); Mean Corpuscular HGB Conc 32.6 g/dl (31.0-35.0); Mean Corpuscular Volume 98.2 fL (80.0-98.0); Mean Platelet Volume 10.4 fL (9.4-12.3); Monocytes Absolute Auto 0.8 X10*3/uL (0.1-1.2); Monocytes Percent Auto 7.1 % (2-11); Neutrophils Absolute Auto 8.8 x10*3/uL (2.0-8.3); Platelet Count 263 X10*3/uL (160-400); Red Blood Count 4.47 X10*6/uL (4.20-5.50); Red Cell Distribution Width 14.2 % (11.0-16.0); White Blood Count 11.3 X10*3/uL (4.8-10.8)
[2022-06-18 10:58] LABS: Estimated Average Glucose 131 mg/dL; Hemoglobin A1c % 6.2 %
[2022-06-18 11:37] LABS: Alanine Aminotransferase 11 U/L (0-31); Albumin Level 3.8 g/dL (3.5-5.0); Alkaline Phosphatase 112 U/L (39-117); Anion Gap 15 (12-20); Aspartate Amino Transferase 14 U/L (5-31); Bilirubin Total 0.4 mg/dL (0.0-1.0); Blood Urea Nitrogen 15 mg/dL (9-16); Calcium 8.8 mg/dL (8.4-10.2); Carbon Dioxide 29 mmol/L (22-29); Chloride 104 mmol/L (96-108); Estimated Glomerular Filt Rate > 60; Glucose Random 144 mg/dL (60-115); Potassium 3.9 mmol/L (3.3-5.1); Sodium 144 mmol/L (135-145); Total Protein 6.7 g/dL (6.5-8.0)
[2022-06-18 12:13] LABS: Creatinine Urine 39.72 mg/dL; Microalbumin Urine < 5.0 mg/L
== END 2022-06-18 10:00 | disposition home or self-care (01) ==
LOC: HO.LAB 09:59
PROVIDERS: PCP Internal Medicine; Visit Provider Internal Medicine
DX: E11.9 Type 2 diabetes mellitus without complications (principal); I10 Essential (primary) hypertension; J44.9 Chronic obstructive pulmonary disease, unspecified; R60.0 Localized edema
CPT/HCPCS: 36415; 80053; 82043; 83036; 85025

== ENCOUNTER → 2022-09-26 09:26 | Outpatient (BNVA) | payer MEDICARE, SELFPAY | PROVIDERS: PCP Internal Medicine; Referring Provider Internal Medicine; Visit Provider Internal Medicine Cardiovascular Disease | DX: I50.810 Right heart failure, unspecified (principal) | CPT/HCPCS: 93005; 99202; 99212 ==

== ENCOUNTER 2022-10-09 09:09 | Outpatient (REF) | payer MEDICARE, SELFPAY ==
[2022-10-09 10:25] LABS: Anion Gap 17 (12-20); Blood Urea Nitrogen 34 mg/dL (9-16); Calcium 9.9 mg/dL (8.4-10.2); Carbon Dioxide 30 mmol/L (22-29); Chloride 97 mmol/L (96-108); Estimated Glomerular Filt Rate 52; Glucose Random 147 mg/dL (60-115); Magnesium 2.1 mg/dL (1.6-2.6); Potassium 3.3 mmol/L (3.3-5.1); Sodium 141 mmol/L (135-145)
[2022-10-09 10:32] LABS: B Type Natriuretic Peptide 62 pg/mL (<100)
== END 2022-10-09 09:10 | disposition home or self-care (01) ==
LOC: HO.LAB 09:09
PROVIDERS: PCP Internal Medicine; Visit Provider Internal Medicine Cardiovascular Disease
DX: I50.30 Unspecified diastolic (congestive) heart failure (principal); I50.810 Right heart failure, unspecified
CPT/HCPCS: 36415; 80048; 83735; 83880

== ENCOUNTER → 2022-10-17 09:00 | Outpatient (REF) | payer MEDICARE, SELFPAY ==
--- NOTE | ~2022-10-17 | NM_ITS ---
Myocardial perfusion study Indication: Shortness of breath to evaluate for myocardial ischemia Technique: The patient was brought in for a Lexiscan perfusion study on 10/17/2022. Patient performed low-level exercise and was injected 0.4 mg of Lexiscan intravenously. Within a minute of injection, 30 mCi of sestamibi was given intravenously. Images were obtained using the SPECT gamma camera interlaced with the gating device. Images were obtained in supine position. Resting perfusion study was performed on 10/18/2022. Patient was administered 30 mCi of sestamibi intravenously at rest. Images were then obtained in supine position. Images obtained with and without CT attenuation. Total DLP 166 mGy-cm. Images were processed with the software and compared side to side in short axis, horizontal long axis and vertical long axis views. Findings: The stress perfusion study showed non attenuated images show mildly reduced uptake in the basal anterolateral, basal lateral and inferolateral wall of the LV myocardium. Attenuated corrected images show moderately reduced uptake in the apex, mildly reduced uptake in the inferior, moderately reduced uptake in the lateral as well as basal anterolateral wall of the LV myocardium. The gated study shows reduced LV systolic function with calculated LVEF of 49%. LV cavity is normal in size. The gated study shows normal systolic wall thickening and contraction of segments. Resting study shows improved uptake in the basal anterolateral, basal lateral wall of the LV myocardium.. Gating at rest reveals normal systolic wall motion with ejection fraction at 44%. The findings are consistent with mild intensity basal anterolateral and lateral wall ischemia. NM/NM andrea perf SPECT rest & str Impression: 1. Myocardial perfusion imaging study shows basal anterolateral and basal lateral wall ischemia 2. Gated LVEF is 49% 3. Transient ischemic dilatation not present EKG is nondiagnostic for ischemia
--- NOTE | 2022-10-17 09:03 | CA_ITS ---
Acquisition Time: 2022-10-17 09:41:18 Total Exercise Time: 00:02:00 Test Indications: SOB Medications: SEE CHART Protocol: LEXISCAN Max HR: 109 BPM 77% of Pred: 140 BPM Max BP: 146/082 mmHG Max Work Load: 1.0 METS Pharmacological stress test with Lexiscan injection, while sitting and moving right arm, with shortness of breath, No chest discomfort, with isolated PVC, two ventricular cuplets and short runs of ventricular bigeminy, with normotensive response to injection, with nondiagnostic EKG for ischemia. In recovery she was treated with Aminophylliine 75mg IVP to reverse Lexiscan. Nuclear images pending.Test reviewed with Dr Cruz Referred By: Jaxson Gonzales Overread By: ASIA FOSS
== END ==
LOC: HO.CARD 09:00
PROVIDERS: PCP Internal Medicine; Visit Provider Internal Medicine Cardiovascular Disease
DX: R06.02 Shortness of breath (principal)
CPT/HCPCS: 78452; 93017; A9500; J0280; J2785

== ENCOUNTER → 2022-11-21 13:09 | Outpatient (BNVA) | payer MEDICARE, SELFPAY | PROVIDERS: PCP Internal Medicine; Referring Provider Internal Medicine; Visit Provider Nurse Practitioner Family | DX: I50.810 Right heart failure, unspecified (principal); R94.39 Abnormal result of other cardiovascular function study; I10 Essential (primary) hypertension; Z79.899 Other long term (current) drug therapy | CPT/HCPCS: 99212 ==

== ENCOUNTER 2022-12-18 09:40 | Outpatient (REF) | payer MEDICARE, SELFPAY ==
[2022-12-18 11:29] LABS: Anion Gap 13 (12-20); Blood Urea Nitrogen 15 mg/dL (9-16); Calcium 9.2 mg/dL (8.4-10.2); Carbon Dioxide 30 mmol/L (22-29); Chloride 103 mmol/L (96-108); Estimated Glomerular Filt Rate > 60; Glucose Random 97 mg/dL (60-115); Potassium 4.1 mmol/L (3.3-5.1); Sodium 142 mmol/L (135-145)
== END 2022-12-18 09:41 | disposition home or self-care (01) ==
LOC: HO.LAB 09:40
PROVIDERS: PCP Internal Medicine; Visit Provider Internal Medicine Cardiovascular Disease
DX: I50.810 Right heart failure, unspecified (principal); R94.39 Abnormal result of other cardiovascular function study
CPT/HCPCS: 36415; 80048

== ENCOUNTER 2023-01-17 07:57 | Outpatient (REF) | payer MEDICARE, SELFPAY ==
[2023-01-17 08:15] LABS: MANUAL DIFF FLAG NO
[2023-01-17 09:02] LABS: Basophils Percent Auto 0.6 % (0-2); Eosinophils Absolute Auto 0.3 X10*3/uL (0.0-0.4); Eosinophils Percent Auto 3.6 % (0-4); Hematocrit 43.9 % (37.0-47.0); Hemoglobin 13.5 g/dl (12.0-16.0); Imm Gran Abs Auto 0.02 X10*3/uL (0.00-0.03); Imm Gran Pct Auto 0.3 % (0.0-0.4); Lymphocytes Absolute Auto 1.2 X10*3/uL (1.2-4.9); Lymphocytes Percent Auto 16.6 % (20-40); Mean Corpuscular HGB Conc 30.8 g/dl (31.0-35.0); Mean Corpuscular Volume 100.7 fL (80.0-98.0); Mean Platelet Volume 10.6 fL (9.4-12.3); Monocytes Absolute Auto 0.8 X10*3/uL (0.1-1.2); Monocytes Percent Auto 10.4 % (2-11); Neutrophils Absolute Auto 4.9 x10*3/uL (2.0-8.3); Neutrophils Percent Auto 68.5 % (45-73); Platelet Count 237 X10*3/uL (160-400); Red Blood Count 4.36 X10*6/uL (4.20-5.50); Red Cell Distribution Width 14.5 % (11.0-16.0); White Blood Count 7.2 X10*3/uL (4.8-10.8)
[2023-01-17 09:12] LABS: Estimated Average Glucose 117 mg/dL; Hemoglobin A1c % 5.7 %
[2023-01-17 09:23] LABS: Appearance Urine Clear; Color Urine Yellow; Glucose Urine UA Negative (Negative); Leukocyte Esterase Urine Negative (Negative); Nitrite Urine Negative (Negative); Urine Blood Negative (Negative); Urine Ketones Negative (Negative); Urine Protein Negative (Neg-Trace)
[2023-01-17 09:45] LABS: Alanine Aminotransferase 19 U/L (0-31); Albumin Level 3.9 g/dL (3.5-5.0); Alkaline Phosphatase 98 U/L (39-117); Anion Gap 16 (12-20); Aspartate Amino Transferase 18 U/L (5-31); Bilirubin Total 0.5 mg/dL (0.0-1.0); Blood Urea Nitrogen 12 mg/dL (9-16); Calcium 9.4 mg/dL (8.4-10.2); Carbon Dioxide 28 mmol/L (22-29); Chloride 104 mmol/L (96-108); Estimated Glomerular Filt Rate 57; Glucose Random 99 mg/dL (60-115); Potassium 4.3 mmol/L (3.3-5.1); Sodium 144 mmol/L (135-145); Total Protein 6.8 g/dL (6.5-8.0); Uric Acid 6.7 mg/dL (2.4-5.7)
[2023-01-17 10:19] LABS: Creatinine Urine 31.99 mg/dL; Microalbumin Urine < 5.0 mg/L
== END 2023-01-17 07:58 | disposition home or self-care (01) ==
LOC: HO.LAB 07:57
PROVIDERS: PCP Internal Medicine; Visit Provider Internal Medicine
DX: J44.9 Chronic obstructive pulmonary disease, unspecified (principal); E11.9 Type 2 diabetes mellitus without complications; K21.9 Gastro-esophageal reflux disease without esophagitis; R60.9 Edema, unspecified; Z91.81 History of falling
CPT/HCPCS: 36415; 80053; 81003; 82043; 83036; 84550; 85025

== ENCOUNTER 2023-02-20 11:27 | Outpatient (REF) | payer MEDICARE, SELFPAY ==
--- NOTE | ~2023-02-20 | CT_ITS ---
EXAMINATION: CT HEAD WITHOUT CONTRAST CLINICAL INFORMATION: History of subdural hematoma. Headache. COMPARISON: Previous head CT April 2022 TECHNIQUE: Contiguous axial imaging was performed from the skull base to vertex without intravenous administration of contrast. This CT examination was performed using dose optimization techniques as appropriate, variously including the following: *Automated exposure control *Adjustment of mA and/or kV according to patient size (this includes techniques or standardized protocols for targeted exams where dose is matched to indication/reason for exam; i.e. extremities or head) *Use of iterative reconstruction technique DLP: 570 mGy-cm FINDINGS: There is no evidence of an extra-axial collection. There is no evidence of intra-axial or extra-axial hemorrhage. The ventricles and extra-axial CSF spaces are appropriate. Weber-white matter differentiation is normal. No mass, mass effect or infarct is seen. No skull fracture. Air-fluid level in the left maxillary sinus suggestive of sinusitis. There is small air-fluid level in the right maxillary sinus as well. Visualized paranasal sinuses, mastoid air cells and middle ears are otherwise clear. Degenerative changes at the right temporomandibular joint. CT/CT head/brain wo IV con IMPRESSION: No acute intracranial findings. Maxillary sinusitis.
== END 2023-02-20 11:28 | disposition home or self-care (01) ==
LOC: HO.CT 11:27
PROVIDERS: PCP Internal Medicine; Visit Provider Internal Medicine
DX: R51.9 Headache, unspecified (principal)
CPT/HCPCS: 70450

== ENCOUNTER 2023-02-26 12:19 | Outpatient (REF) | payer MEDICARE, SELFPAY ==
[2023-02-26 14:46] LABS: B Type Natriuretic Peptide 95 pg/mL (<100)
[2023-02-26 16:21] LABS: Anion Gap 14 (12-20); Blood Urea Nitrogen 19 mg/dL (9-16); Calcium 9.3 mg/dL (8.4-10.2); Carbon Dioxide 28 mmol/L (22-29); Chloride 106 mmol/L (96-108); Estimated Glomerular Filt Rate > 60; Glucose Random 86 mg/dL (60-115); Magnesium 2.5 mg/dL (1.6-2.6); Potassium 4.8 mmol/L (3.3-5.1); Sodium 143 mmol/L (135-145)
== END 2023-02-26 12:20 | disposition home or self-care (01) ==
LOC: HO.LAB 12:19
PROVIDERS: PCP Internal Medicine; Referring Provider Internal Medicine; Visit Provider Internal Medicine Cardiovascular Disease
DX: I50.810 Right heart failure, unspecified (principal)
CPT/HCPCS: 36415; 80048; 83735; 83880; 99212

== ENCOUNTER 2023-03-04 10:45 | Outpatient (REF) | payer MEDICARE, SELFPAY ==
[2023-03-04 13:35] LABS: TSH reflex Free T4 2.15 uIU/mL (0.32-4.0)
== END 2023-03-04 10:46 | disposition home or self-care (01) ==
LOC: HO.LAB 10:45
PROVIDERS: Visit Provider Otolaryngology Facial Plastic Surgery
DX: H02.89 Other specified disorders of eyelid (principal)
CPT/HCPCS: 36415; 84443

== ENCOUNTER 2023-03-11 03:59 | Emergency (ER) | payer MEDICARE, SELFPAY ==
--- NOTE | ~2023-03-11 | XR_ITS ---
EXAMINATION: XR CHEST CLINICAL INFORMATION: Chest pain COMPARISON: Multiple priors with the last chest x-ray of 05/14/2022 TECHNIQUE: Frontal view of the chest was obtained. FINDINGS: Cardiomediastinal silhouette is unchanged with borderline normal cardiac size versus mild cardiomegaly. No abnormal tracheal deviation. The lungs are adequately expanded. Vascular prominence is again noted, similar to multiple previous x-rays. Streaky retrocardiac opacities do not appear to be significantly changed compared to several previous x-rays and may represent a vascular markings or atelectasis. No definite new airspace opacities are appreciated. No evidence of pleural effusions, changes of overt pulmonary edema or pneumothorax. XR/XR chest 1V IMPRESSION: Likely pulmonary venous congestion without evidence of overt pulmonary edema. No convincing radiographic evidence of pneumonia.
--- NOTE | 2023-03-11 04:06 | ECG_ITS ---
Test Reason : chest pain Blood Pressure : / mmHG Vent. Rate : 085 BPM Atrial Rate : 085 BPM P-R Int : 190 ms QRS Dur : 090 ms QT Int : 408 ms P-R-T Axes : 046 -05 058 degrees QTc Int : 485 ms Sinus rhythm with occasional Premature ventricular complexes Otherwise normal ECG When compared with ECG of 11-MAY-2022 01:12, No significant change was found Referred By: Generic ED Physician Electronically Signed By:KASSY GALINDO
[2023-03-11 04:15] VITALS: BP 134/86; BP 161/90; PULSE 80; PULSE 87; RESP 16; TEMP 36.5; O2SAT 92; O2SAT 96; BMI 48.7
[2023-03-11 04:55] VITALS: BP 153/77; PULSE 86; RESP 19; TEMP 36.6; O2SAT 90
[2023-03-11 04:55] LABS: MANUAL DIFF FLAG NO
[2023-03-11 04:56] LABS: Basophils Percent Auto 0.5 % (0-2); Eosinophils Absolute Auto 0.5 X10*3/uL (0.0-0.4); Eosinophils Percent Auto 6.8 % (0-4); Hemoglobin 13.2 g/dl (12.0-16.0); Imm Gran Abs Auto 0.02 X10*3/uL (0.00-0.03); Imm Gran Pct Auto 0.3 % (0.0-0.4); Lymphocytes Absolute Auto 1.1 X10*3/uL (1.2-4.9); Lymphocytes Percent Auto 14.9 % (20-40); Mean Corpuscular HGB Conc 32.2 g/dl (31.0-35.0); Mean Corpuscular Hemoglobin 31.3 pg (27.0-33.0); Mean Corpuscular Volume 97.2 fL (80.0-98.0); Mean Platelet Volume 10.3 fL (9.4-12.3); Monocytes Absolute Auto 0.7 X10*3/uL (0.1-1.2); Monocytes Percent Auto 8.5 % (2-11); Neutrophils Absolute Auto 5.3 x10*3/uL (2.0-8.3); Platelet Count 215 X10*3/uL (160-400); Red Blood Count 4.22 X10*6/uL (4.20-5.50); Red Cell Distribution Width 14.1 % (11.0-16.0); White Blood Count 7.6 X10*3/uL (4.8-10.8)
[2023-03-11 05:12] LABS: Anion Gap 13 (12-20); Blood Urea Nitrogen 21 mg/dL (9-16); Calcium 9.1 mg/dL (8.4-10.2); Carbon Dioxide 25 mmol/L (22-29); Chloride 109 mmol/L (96-108); Creatinine Clr Calc Pharmacy 76.2; Estimated Glomerular Filt Rate > 60; Glucose Random 104 mg/dL (60-115); Potassium 3.8 mmol/L (3.3-5.1); Sodium 143 mmol/L (135-145)
[2023-03-11 06:56] LABS: Troponin-I High Sensitivity 5.5 ng/L (<3.5-17.0)
[2023-03-11 07:03] VITALS: BP 170/88; PULSE 84; RESP 16; O2SAT 92
--- NOTE | 2023-03-11 07:05 | ED.CHESTPAIN ---
HPI - Chest Pain General Chief Complaint: Chest Pain <GREGORY Parker Last Filed: 03/12/23 17:17> Stated Complaint: CP <GREGORY Parker - Last Filed: 03/12/23 17:17> Time Seen by Provider: 03/11/23 06:31 <GREGORY Parker Last Filed: 03/12/23 17:17> Source: patient and RN notes reviewed <GREGORY Parker Last Filed: 03/12/23 17:17> Mode of arrival: ambulatory <GREGORY Parker Last Filed: 03/12/23 17:17> Limitations: no limitations <GREGORY Parker Last Filed: 03/12/23 17:17> History of Present Illness HPI narrative: This is a 82-year-old female, with a past medical history of right heart failure, COPD, hyperlipidemia, hypertension, lymphedema, type 2 diabetes, subdural hematoma in december, who presents emergency department today with complaints of left sided chest pain that woke her up from sleep at 3:00 a.m. this morning. Patient reports that she suddenly woke up from this shows the reports that the pain radiated up to her left side her neck as well as down her left arm. She had associated shortness of breath at the time. She reports that the pain lasted for several minutes called 9-1-1. Patient reports she no longer has chest pain or shortness of breath. Denies history of similar symptoms in the past. The patient denies any fevers, chills, changes in vision, nausea, vomiting, or constipation. She reports that she has had diarrhea over the last week. Last echo 05/2022 showed EF 60-65%, mild LVH, increased in the RV size and moderate increase in the RA systolic pressure, mild pulmonary hypertension.? Nuclear stress test done on 10/17/2022 shows basal anterior lateral and basal lateral wall ischemia.? A CTA of the coronary arteries was ordered however not completed as of yet. <GREGORY Parker Last Filed: 03/12/23 17:17> MD complaint: chest pain <GREGORY Parker Last Filed: 03/12/23 17:17> Pertinent past history: coronary artery disease <GREGORY Parker Last Filed: 03/12/23 17:17> Onset (ago): hour(s) <GREGORY Parker - Last Filed: 03/12/23 17:17> Timing of current episode: episodic and now resolved <GREGORY Parker - Last Filed: 03/12/23 17:17> Prior episodes: No <GREGORY Parker - Last Filed: 03/12/23 17:17> Onset: during rest and awoke with symptoms <GREGORY Parker - Last Filed: 03/12/23 17:17> Pain location: substernal <GREGORY Parker - Last Filed: 03/12/23 17:17> Pain radiation: left arm and neck <GREGORY Parker - Last Filed: 03/12/23 17:17> Severity: moderate <GREGORY Parker - Last Filed: 03/12/23 17:17> Quality: tightness and aching <GREGORY Parker - Last Filed: 03/12/23 17:17> Relieving factors: nothing <GREGORY Parker - Last Filed: 03/12/23 17:17> Exacerbating factors: nothing <GREGORY Parker - Last Filed: 03/12/23 17:17> Treatment prior to arrival: none <GREGORY Parker - Last Filed: 03/12/23 17:17> Risk Factors Coronary artery disease risk factors: diabetes, hyperlipidemia and hypertension <GREGORY Parker - Last Filed: 03/12/23 17:17> Thoracic aortic dissection risk factors: none <GREGORY Parker - Last Filed: 03/12/23 17:17> Related Data On Oral Contraceptives: No <GREGORY Parker - Last Filed: 03/12/23 17:17> Home Medications: Home Medications Medication Instructions Recorded Confirmed allopurinol 100 mg tablet 100 mg PO DAILY 09/05/21 02/26/23 diltiazem HCl 360 mg capsule,24 360 mg PO DAILY 09/05/21 02/26/23 hr,extended release (Tiadylt ER) gemfibrozil 600 mg tablet 600 mg PO DAILY 09/05/21 02/26/23 loratadine 10 mg tablet (Claritin) 10 mg PO DAILY 09/05/21 02/26/23 meloxicam 15 mg tablet 15 mg PO DAILY 09/05/21 02/26/23 metformin 500 mg tablet,extended 500 mg PO DAILY 09/05/21 02/26/23 release 24 hr metolazone 2.5 mg tablet 2.5 mg PO Q48H 09/05/21 02/26/23 omeprazole 20 mg capsule,delayed 20 mg PO DAILY 09/05/21 02/26/23 release pravastatin 40 mg tablet 40 mg PO DAILY 09/05/21 02/26/23 guaifenesin 600 mg tablet, 1,200 mg PO Q12H 05/10/22 02/26/23 extended release 12 hr (Mucinex) oxymetazoline 0.05 % nasal spray 1 spray intranasal Q12H 05/10/22 02/26/23 (Mucinex Sinus-Max) Previous Rx's Medication Instructions Recorded dexamethasone 6 mg tablet 6 mg PO DAILY #4 tabs 05/15/22 bumetanide 2 mg tablet 2 mg PO BID #60 tabs 01/28/23 <GREGORY Parker - Last Filed: 03/12/23 17:17> Allergies/Adverse Reactions: Allergies Allergy/AdvReac Type Severity Reaction Status Date / Time mold [MOLD] Allergy Intermediate COUGHING, Verified 02/26/23 12:49 SINUS CONGESTION Penicillins [PENICILLINS] Allergy Intermediate REVERSE Verified 02/26/23 12:49 REACTION MAKES PT FEEL WORSE <GREGORY Parker Last Filed: 03/12/23 17:17> Review of Systems Review of Systems: Constitutional: No Weight loss, No Fever, No Chills, No Night Sweats, No Fatigue, No Malaise ENT/Mouth: No Hearing loss, No Ear Pain, No Nasal Congestion, No Sinus Pain, No Hoarseness, No sore throat, No Rhinorrhea, No Swallowing Difficulty Eyes: No Eye Pain, No Swelling, No Redness, No Foreign Body, No Discharge, No Vision Changes Cardiovascular: +Chest Pain, +SOB, No Dyspnea on Exertion, No Orthopnea, No Edema, No Palpitations Respiratory: No Cough, No Sputum, No Wheezing, No Smoke Exposure, +Dyspnea Gastrointestinal: No Nausea, No Vomiting, No Diarrhea, No Constipation, No Abdominal pain, No Hematochezia, No Melena Genitourinary: No irregular bleeding, No Dysuria, No Urinary Frequency, No Hematuria, No Urinary Incontinence/retention, No Urgency, No Flank Pain, No Urinary Flow Changes, No Hesitancy Musculoskeletal: No joint pain, No Myalgias, No Joint Swelling Skin: No Skin Lesions, No rash Neuro: No Weakness, No Numbness, No Paresthesias, No Loss of Consciousness, No Dizziness, No Headache Psych: No Anxiety/Panic, No Depression, No SI/HI/AH/VH, No Social Issues, Heme/Lymph: No Bruising, No Bleeding,No Lymphadenopathy Endocrine: No Polyuria, No Polydipsia, No Temperature Intolerance <GREGORY Parker - Last Filed: 03/12/23 17:17> Yes all other systems are reviewed and are negative <GREGORY Parker - Last Filed: 03/12/23 17:17> Constitutional: Constitutional: Reports as per HPI <GREGROY Parker - Last Filed: 03/12/23 17:17> [facility] Past Medical History Attestation statement: The following information was validated with the patient. <GREGORY Parker - Last Filed: 03/12/23 17:17> Medical History: Medical History Arthritis COPD (chronic obstructive pulmonary disease) Dyslipidemia Hypertension Hypertension Lymphedema Morbid obesity PVC (premature ventricular contraction) Type 2 diabetes mellitus <GREGORY Parker - Last Filed: 03/12/23 17:17> Surgical History: Surgical History History of hysterectomy History of knee replacement <GREGORY Parker - Last Filed: 03/12/23 17:17> Family History Family History: Family History Mother Coronary artery disease <GREGORY Parker - Last Filed: 03/12/23 17:17> Social History Social History: Social History Household Members: Significant Other Housing: Apartment Do you presently have visiting nurse or other home services: No Alcohol intake: never Patient Tobacco Use Status: Never used Tobacco e-Cigarette/Vaping Use: Never Used Second Hand Smoke Exposure: No service: No Current occupational status: retired <GREGORY Parker - Last Filed: 03/12/23 17:17> Physical Exam Vital Signs: Vital Signs: Last Vital Signs Temp 98.2 F 03/11/23 14:44 Pulse 97 03/11/23 16:18 Resp 14 03/11/23 16:18 BP 165/91 H 03/11/23 16:18 Pulse Ox 92 03/11/23 16:18 O2 Del Method Room Air 03/11/23 16:18 BMI result Body Mass Index 50.2 <Claudine Serrato PA - Last Filed: 03/12/23 17:17> Vital Signs: Last Vital Signs Temp 98.2 F 03/11/23 14:44 Pulse 97 03/11/23 16:18 Resp 14 03/11/23 16:18 BP 165/91 H 03/11/23 16:18 Pulse Ox 92 03/11/23 16:18 O2 Del Method Room Air 03/11/23 16:18 BMI result Body Mass Index 50.2 <Alysha Mcknight MD - Last Filed: 03/11/23 08:06> Const: General: cooperative, comfortable and no acute distress <Claudine Serrato PA - Last Filed: 03/12/23 17:17> Orientation/consciousness: patient oriented x3 <GREGORY Parker - Last Filed: 03/12/23 17:17> Limitations: no limitations <Claudine Serrato PA - Last Filed: 03/12/23 17:17> HEENT: Head: Yes normal to inspection, Yes normocephalic and Yes atraumatic <Claudine Serrato PA - Last Filed: 03/12/23 17:17> Ears: hearing grossly normal bilaterally <GREGORY Parker - Last Filed: 03/12/23 17:17> General nose exam: Normal external nose present <GREGORY Parker - Last Filed: 03/12/23 17:17> Face and sinus: Yes normal facial exam <GREGORY Parker - Last Filed: 03/12/23 17:17> Mouth: Normal oral and palatal mucosa present, oropharynx normal and moist mucous membranes <GREGORY Parker - Last Filed: 03/12/23 17:17> Throat: Yes posterior oropharynx normal <Claudine Serrato, PA - Last Filed: 03/12/23 17:17> Eyes: General: appearance normal, both eyes and all related structures <Claudine Serrato, PA - Last Filed: 03/12/23 17:17> Eyelids: Yes eyelids normal <Claudine Serrato PA - Last Filed: 03/12/23 17:17> Conjunctivae: conjunctivae normal <Claudine Carcamoox, PA - Last Filed: 03/12/23 17:17> Sclerae: sclerae normal <Claudine Serrato, PA - Last Filed: 03/12/23 17:17> Pupils: Equal, round and reactive pupils present <Claudine Carcamolam PA - Last Filed: 03/12/23 17:17> EOM: EOMs intact bilaterally <Claudine Carcamoox, PA - Last Filed: 03/12/23 17:17> Neck: Neck: Yes normal visual inspection, Yes full ROM and Yes no lymphadenopathy <Clauidne Carcamoox, PA - Last Filed: 03/12/23 17:17> Lymphatic: no lymphadenopathy noted <Claudine Carcamoox, PA - Last Filed: 03/12/23 17:17> Chest: Chest palpation & inspection: normal inspection of the chest <Claudineeliezer Serrato PA - Last Filed: 03/12/23 17:17> Resp: Other: Coarse crackles noted at bilateral lung bases. Faint expiratory wheeze in the upper right lung base. <Claudine Carcamolam PA - Last Filed: 03/12/23 17:17> Effort & Inspection: normal respiratory effort and able to speak in complete sentences <Claudine Serrato, PA - Last Filed: 03/12/23 17:17> Cardio: Rate: regular rate <Claudine Carcamolam PA - Last Filed: 03/12/23 17:17> Rhythm: regular rhythm <Claudine Serrato, PA - Last Filed: 03/12/23 17:17> Heart sounds: S1 normal heart sound present and S2 normal heart sound present <Claudineeliezer Serrato PA - Last Filed: 03/12/23 17:17> GI: Inspection: Yes normal to inspection <Claudine Serrato PA - Last Filed: 03/12/23 17:17> Skin: General skin exam: no rashes or lesions noted <Claudine Serrato PA - Last Filed: 03/12/23 17:17> Trauma: no lacerations or abrasions <Claudine Serraot PA - Last Filed: 03/12/23 17:17> Wounds: no wounds <Claudineeliezer Serrato PA - Last Filed: 03/12/23 17:17> Neuro: General: patient oriented x3 and moves all extremities <Claudine Serrato PA - Last Filed: 03/12/23 17:17> Cranial nerves: Yes Equal, round and reactive pupils present <Claudineeliezer Serrato PA - Last Filed: 03/12/23 17:17> Extrem: Other: Lymphadema with 1+ pitting edema, 2+ pedal pulses noted bilaterally. <Claudine Serrato PA - Last Filed: 03/12/23 17:17> General: Yes normal to inspection <Claudine Serrato PA - Last Filed: 03/12/23 17:17> Right upper extremity: normal to inspection <lCaudine Serrato PA - Last Filed: 03/12/23 17:17> Left upper extremity: normal to inspection <Claudineeliezer Serrato PA - Last Filed: 03/12/23 17:17> Course Reevaluation(s) Reevaluation #1: Patient remains asymptomatic at this time. Given patient's heart score of 7 as well as concerning findings on stress test performed in October with no follow-up, I considered hospital admission. Consulted tipple mechanic Dr. Cruz for further recommendations <Claudine Serrato PA - Last Filed: 03/12/23 17:17> Time: 08:44 <Claudine Serrato PA - Last Filed: 03/12/23 17:17> Reevaluation #2: Dr. Cruz saw pt at bedside and recommending direct admit to [facility] cardiology for cath. <GREGORY Parker - Last Filed: 03/12/23 17:17> Time: 09:18 <Claudine Serrato PA - Last Filed: 03/12/23 17:17> Reevaluation #3: Spoke to Rosy Obando NP in cardiology who accepts transfer of care, however waiting for bed. Will return call when bed becomes available. Informed Dr. Cruz in regards to this update. Pt remains chest pain free. NPO. Dr. Cruz requesting ASA and heparin drip. I informed Dr. Cruz hx of subdural hematoma in December, seen at [facility] with ?evacuation. Discussed this with Dr. Cruz and Dr. Suero who reported that this will be ok to still administer heparin drip. Heparin drip and coagulation studies ordered. <GREGORY Parker - Last Filed: 03/12/23 17:17> Time: 10:05 <GREGORY Parker - Last Filed: 03/12/23 17:17> Additional Reevaluation(s): 1608 - patient has been waiting for transfer to [facility] for cardiac catheterization however given how busy the cardiac catheterization unit at [facility] is, the patient still did not have a bed for transfer. I was told that patient was experiencing the same chest pain that starts midsternal and radiated to her back. She states that this is the same pain that woke her out of sleep during the night last night. I repeated her blood pressure 177/92, nitropaste ordered. Repeat EKG and troponin ordered. 1615 - EMS arrived, patient repeat EKG revealing normal sinus rhythm with occasional premature ventricular complexes, patient has a ventricular rate of 93 beats per minute, IA interval 190, QTC 477. No ST elevation or depression similar appearing EKG from previous. [place] [facility] [place] <GREGORY Parker - Last Filed: 03/12/23 17:17> Medications Administered Discontinued Medications Generic Name Dose Route Start Last Admin Trade Name Tavia PRN Reason Stop Dose Admin Acetaminophen 975 mg 03/11/23 06:55 03/11/23 07:36 Acetaminophen 325 Mg Tablet PO 03/11/23 06:56 975 mg ONCE ONE Administration Aspirin 324 mg 03/11/23 10:22 03/11/23 11:21 Aspirin 81 Mg Tab.Chew PO 03/11/23 10:23 324 mg ONCE ONE Administration Heparin Sodium (Porcine) 4,000 unit 03/11/23 10:22 03/11/23 11:21 Heparin Sodium,Porcine 5,000 Unit/Ml Vial IVPUSH 03/11/23 10:23 4,000 unit ONCE ONE Administration Heparin Sodium/Sodium Chloride 25,000 unit in 250 mls @ 0 mls/hr 03/11/23 11:00 03/11/23 11:27 Heparin Sodium,Porcine/1/2ns IVCONT 7.09 units/kg/hr .Q0M JUDITH 10 mls/hr Administration Protocol Per Protocol Nitroglycerin 1 inch 03/11/23 16:03 03/11/23 16:20 Nitroglycerin 2 % Oint 1 Gm Packet TRANSDERMA 03/11/23 16:04 1 inch ONCE ONE Administration <GREGORY Parker - Last Filed: 03/12/23 17:17> Medications Administered Discontinued Medications Generic Name Dose Route Start Last Admin Trade Name Tavia PRN Reason Stop Dose Admin Acetaminophen 975 mg 03/11/23 06:55 03/11/23 07:36 Acetaminophen 325 Mg Tablet PO 03/11/23 06:56 975 mg ONCE ONE Administration Aspirin 324 mg 03/11/23 10:22 03/11/23 11:21 Aspirin 81 Mg Tab.Chew PO 03/11/23 10:23 324 mg ONCE ONE Administration Heparin Sodium (Porcine) 4,000 unit 03/11/23 10:22 03/11/23 11:21 Heparin Sodium,Porcine 5,000 Unit/Ml Vial IVPUSH 03/11/23 10:23 4,000 unit ONCE ONE Administration Heparin Sodium/Sodium Chloride 25,000 unit in 250 mls @ 0 mls/hr 03/11/23 11:00 03/11/23 11:27 Heparin Sodium,Porcine/1/2ns IVCONT 7.09 units/kg/hr .Q0M JUDITH 10 mls/hr Administration Protocol Per Protocol Nitroglycerin 1 inch 03/11/23 16:03 03/11/23 16:20 Nitroglycerin 2 % Oint 1 Gm Packet TRANSDERMA 03/11/23 16:04 1 inch ONCE ONE Administration <Alysha Mcknight MD - Last Filed: 03/11/23 08:06> Medical Decision Making Medical Decision Making MDM Narrative: 82-year-old female, with a past medical history of right heart failure, COPD, hyperlipidemia, hypertension, lymphedema, type 2 diabetes, subdural hematoma who presents emergency department today with complaints of chest pain that woke her up from sleep at 3:00 a.m. this morning. Patient reports that the pain radiated down her left arm and up into her left neck. Patient reports that the chest pain lasted for several minutes. She is currently asymptomatic at this time. Last echo 05/2022 showed EF 60-65%, mild LVH, increased in the RV size and moderate increase in the RA systolic pressure, mild pulmonary hypertension.? Nuclear stress test done on 10/17/2022 shows basal anterior lateral and basal lateral wall ischemia.? A CTA of the coronary arteries was ordered however not completed as of yet. Upon arrival blood pressure 161/90, pulse 87 O2 saturation 92% on room air. Patient is well appearing and in no acute distress. Bilateral lung bases with coarse crackles. Lymphedema noted to bilateral lower extremities. Basic blood work unremarkable however troponin, BNP, and chest x-ray, was not ordered upon arrival which are now ordered. EKG sinus tach with occasional PVCs, no ST elevation or depressions noted. Plan: Troponin, BNP, chest x-ray. <GREGORY Parker - Last Filed: 03/12/23 17:17> Differential Diagnosis Differential Diagnoses: The differential diagnosis associated with the presentation includes <GREGORY Parker - Last Filed: 03/12/23 17:17> ACS, Pneumonia, CHF <GREGORY Parker - Last Filed: 03/12/23 17:17> Admission/Observation Consideration of admission/observation: Escalation of care including admission/observation considered <GREGORY Parker - Last Filed: 03/12/23 17:17> Lab Data MDM Lab Attestation statement: I reviewed the patient's lab results. <GREGORY Parker - Last Filed: 03/12/23 17:17> Result Diagrams: 03/11/23 04:38 03/11/23 04:38 <GREGORY Parker - Last Filed: 03/12/23 17:17> Labs: Lab Results 03/11/23 03/11/23 03/11/23 Range/Units 04:38 04:38 04:38 WBC 7.6 (4.8-10.8) X10*3/uL RBC 4.22 (4.20-5.50) X10*6/uL Hgb 13.2 (12.0-16.0) g/dl Hct 41.0 (37.0-47.0) % MCV 97.2 (80.0-98.0) fL MCH 31.3 (27.0-33.0) pg MCHC 32.2 (31.0-35.0) g/dl RDW 14.1 (11.0-16.0) % Plt Count 215 (160-400) X10*3/uL MPV 10.3 (9.4-12.3) fL Immature Gran % (Auto) 0.3 (0.0-0.4) % Neut % (Auto) 69.0 (45-73) % Lymph % (Auto) 14.9 L (20-40) % Davis % (Auto) 8.5 (2-11) % Eos % (Auto) 6.8 H (0-4) % Baso % (Auto) 0.5 (0-2) % Lymph # (Auto) 1.1 L (1.2-4.9) X10*3/uL Davis # (Auto) 0.7 (0.1-1.2) X10*3/uL Eos # (Auto) 0.5 H (0.0-0.4) X10*3/uL Baso # (Auto) 0.0 (0.0-0.2) X10*3/uL Abs Immat Gran (auto) 0.02 (0.00-0.03) X10*3/uL Absolute Neuts (auto) 5.3 (2.0-8.3) x10*3/uL Absolute Nucleated RBC 0.000 (0.0-0.012) X10*3/uL Nucleated RBC % (auto) 0.0 (0.0-0.2) /100WBC PT (10.0-13.1) SEC INR (0.9-1.1) aPTT Heparin Protocol (53-77.9) SEC Sodium 143 (135-145) mmol/L Potassium 3.8 D (3.3-5.1) mmol/L Chloride 109 H (96-108) mmol/L Carbon Dioxide 25 (22-29) mmol/L Anion Gap 13 (12-20) BUN 21 H (9-16) mg/dL Creatinine 0.84 (0.5-1.4) mg/dL Estim Creat Clear Calc 76.2 Estimated GFR > 60 Random Glucose 104 (60-115) mg/dL Calcium 9.1 (8.4-10.2) mg/dL Troponin I High Sens 5.5 (<3.5-17.0) ng/L B-Natriuretic Peptide (<100) pg/mL COVID-19 (ANTHONY) (Negative) COVID-19 Clin Com 03/11/23 03/11/23 03/11/23 Range/Units 04:38 07:40 10:34 WBC (4.8-10.8) X10*3/uL RBC (4.20-5.50) X10*6/uL Hgb (12.0-16.0) g/dl Hct (37.0-47.0) % MCV (80.0-98.0) fL MCH (27.0-33.0) pg MCHC (31.0-35.0) g/dl RDW (11.0-16.0) % Plt Count (160-400) X10*3/uL MPV (9.4-12.3) fL Immature Gran % (Auto) (0.0-0.4) % Neut % (Auto) (45-73) % Lymph % (Auto) (20-40) % Davis % (Auto) (2-11) % Eos % (Auto) (0-4) % Baso % (Auto) (0-2) % Lymph # (Auto) (1.2-4.9) X10*3/uL Davis # (Auto) (0.1-1.2) X10*3/uL Eos # (Auto) (0.0-0.4) X10*3/uL Baso # (Auto) (0.0-0.2) X10*3/uL Abs Immat Gran (auto) (0.00-0.03) X10*3/uL Absolute Neuts (auto) (2.0-8.3) x10*3/uL Absolute Nucleated RBC (0.0-0.012) X10*3/uL Nucleated RBC % (auto) (0.0-0.2) /100WBC PT 10.8 (10.0-13.1) SEC INR 0.9 (0.9-1.1) aPTT Heparin Protocol 35.7 L (53-77.9) SEC Sodium (135-145) mmol/L Potassium (3.3-5.1) mmol/L Chloride (96-108) mmol/L Carbon Dioxide (22-29) mmol/L Anion Gap (12-20) BUN (9-16) mg/dL Creatinine (0.5-1.4) mg/dL Estim Creat Clear Calc Estimated GFR Random Glucose (60-115) mg/dL Calcium (8.4-10.2) mg/dL Troponin I High Sens 5.9 (<3.5-17.0) ng/L B-Natriuretic Peptide 60 (<100) pg/mL COVID-19 (ANTHONY) (Negative) COVID-19 Clin Com 03/11/23 03/11/23 Range/Units 16:02 16:14 WBC (4.8-10.8) X10*3/uL RBC (4.20-5.50) X10*6/uL Hgb (12.0-16.0) g/dl Hct (37.0-47.0) % MCV (80.0-98.0) fL MCH (27.0-33.0) pg MCHC (31.0-35.0) g/dl RDW (11.0-16.0) % Plt Count (160-400) X10*3/uL MPV (9.4-12.3) fL Immature Gran % (Auto) (0.0-0.4) % Neut % (Auto) (45-73) % Lymph % (Auto) (20-40) % Davis % (Auto) (2-11) % Eos % (Auto) (0-4) % Baso % (Auto) (0-2) % Lymph # (Auto) (1.2-4.9) X10*3/uL Davis # (Auto) (0.1-1.2) X10*3/uL Eos # (Auto) (0.0-0.4) X10*3/uL Baso # (Auto) (0.0-0.2) X10*3/uL Abs Immat Gran (auto) (0.00-0.03) X10*3/uL Absolute Neuts (auto) (2.0-8.3) x10*3/uL Absolute Nucleated RBC (0.0-0.012) X10*3/uL Nucleated RBC % (auto) (0.0-0.2) /100WBC PT (10.0-13.1) SEC INR (0.9-1.1) aPTT Heparin Protocol (53-77.9) SEC Sodium (135-145) mmol/L Potassium (3.3-5.1) mmol/L Chloride (96-108) mmol/L Carbon Dioxide (22-29) mmol/L Anion Gap (12-20) BUN (9-16) mg/dL Creatinine (0.5-1.4) mg/dL Estim Creat Clear Calc Estimated GFR Random Glucose (60-115) mg/dL Calcium (8.4-10.2) mg/dL Troponin I High Sens 7.4 (<3.5-17.0) ng/L B-Natriuretic Peptide (<100) pg/mL COVID-19 (ANTHONY) Negative (Negative) COVID-19 Clin Com See Note <GREGORY Parker - Last Filed: 03/12/23 17:17> Lab Results 03/11/23 03/11/23 03/11/23 Range/Units 04:38 04:38 04:38 WBC 7.6 (4.8-10.8) X10*3/uL RBC 4.22 (4.20-5.50) X10*6/uL Hgb 13.2 (12.0-16.0) g/dl Hct 41.0 (37.0-47.0) % MCV 97.2 (80.0-98.0) fL MCH 31.3 (27.0-33.0) pg MCHC 32.2 (31.0-35.0) g/dl RDW 14.1 (11.0-16.0) % Plt Count 215 (160-400) X10*3/uL MPV 10.3 (9.4-12.3) fL Immature Gran % (Auto) 0.3 (0.0-0.4) % Neut % (Auto) 69.0 (45-73) % Lymph % (Auto) 14.9 L (20-40) % Davis % (Auto) 8.5 (2-11) % Eos % (Auto) 6.8 H (0-4) % Baso % (Auto) 0.5 (0-2) % Lymph # (Auto) 1.1 L (1.2-4.9) X10*3/uL Davis # (Auto) 0.7 (0.1-1.2) X10*3/uL Eos # (Auto) 0.5 H (0.0-0.4) X10*3/uL Baso # (Auto) 0.0 (0.0-0.2) X10*3/uL Abs Immat Gran (auto) 0.02 (0.00-0.03) X10*3/uL Absolute Neuts (auto) 5.3 (2.0-8.3) x10*3/uL Absolute Nucleated RBC 0.000 (0.0-0.012) X10*3/uL Nucleated RBC % (auto) 0.0 (0.0-0.2) /100WBC PT (10.0-13.1) SEC INR (0.9-1.1) aPTT Heparin Protocol (53-77.9) SEC Sodium 143 (135-145) mmol/L Potassium 3.8 D (3.3-5.1) mmol/L Chloride 109 H (96-108) mmol/L Carbon Dioxide 25 (22-29) mmol/L Anion Gap 13 (12-20) BUN 21 H (9-16) mg/dL Creatinine 0.84 (0.5-1.4) mg/dL Estim Creat Clear Calc 76.2 Estimated GFR > 60 Random Glucose 104 (60-115) mg/dL Calcium 9.1 (8.4-10.2) mg/dL Troponin I High Sens 5.5 (<3.5-17.0) ng/L B-Natriuretic Peptide (<100) pg/mL COVID-19 (ANTHONY) (Negative) COVID-19 Clin Com 03/11/23 03/11/23 03/11/23 Range/Units 04:38 07:40 10:34 WBC (4.8-10.8) X10*3/uL RBC (4.20-5.50) X10*6/uL Hgb (12.0-16.0) g/dl Hct (37.0-47.0) % MCV (80.0-98.0) fL MCH (27.0-33.0) pg MCHC (31.0-35.0) g/dl RDW (11.0-16.0) % Plt Count (160-400) X10*3/uL MPV (9.4-12.3) fL Immature Gran % (Auto) (0.0-0.4) % Neut % (Auto) (45-73) % Lymph % (Auto) (20-40) % Davis % (Auto) (2-11) % Eos % (Auto) (0-4) % Baso % (Auto) (0-2) % Lymph # (Auto) (1.2-4.9) X10*3/uL Davis # (Auto) (0.1-1.2) X10*3/uL Eos # (Auto) (0.0-0.4) X10*3/uL Baso # (Auto) (0.0-0.2) X10*3/uL Abs Immat Gran (auto) (0.00-0.03) X10*3/uL Absolute Neuts (auto) (2.0-8.3) x10*3/uL Absolute Nucleated RBC (0.0-0.012) X10*3/uL Nucleated RBC % (auto) (0.0-0.2) /100WBC PT 10.8 (10.0-13.1) SEC INR 0.9 (0.9-1.1) aPTT Heparin Protocol 35.7 L (53-77.9) SEC Sodium (135-145) mmol/L Potassium (3.3-5.1) mmol/L Chloride (96-108) mmol/L Carbon Dioxide (22-29) mmol/L Anion Gap (12-20) BUN (9-16) mg/dL Creatinine (0.5-1.4) mg/dL Estim Creat Clear Calc Estimated GFR Random Glucose (60-115) mg/dL Calcium (8.4-10.2) mg/dL Troponin I High Sens 5.9 (<3.5-17.0) ng/L B-Natriuretic Peptide 60 (<100) pg/mL COVID-19 (ANTHONY) (Negative) COVID-19 Clin Com 03/11/23 03/11/23 Range/Units 16:02 16:14 WBC (4.8-10.8) X10*3/uL RBC (4.20-5.50) X10*6/uL Hgb (12.0-16.0) g/dl Hct (37.0-47.0) % MCV (80.0-98.0) fL MCH (27.0-33.0) pg MCHC (31.0-35.0) g/dl RDW (11.0-16.0) % Plt Count (160-400) X10*3/uL MPV (9.4-12.3) fL Immature Gran % (Auto) (0.0-0.4) % Neut % (Auto) (45-73) % Lymph % (Auto) (20-40) % Davis % (Auto) (2-11) % Eos % (Auto) (0-4) % Baso % (Auto) (0-2) % Lymph # (Auto) (1.2-4.9) X10*3/uL Davis # (Auto) (0.1-1.2) X10*3/uL Eos # (Auto) (0.0-0.4) X10*3/uL Baso # (Auto) (0.0-0.2) X10*3/uL Abs Immat Gran (auto) (0.00-0.03) X10*3/uL Absolute Neuts (auto) (2.0-8.3) x10*3/uL Absolute Nucleated RBC (0.0-0.012) X10*3/uL Nucleated RBC % (auto) (0.0-0.2) /100WBC PT (10.0-13.1) SEC INR (0.9-1.1) aPTT Heparin Protocol (53-77.9) SEC Sodium (135-145) mmol/L Potassium (3.3-5.1) mmol/L Chloride (96-108) mmol/L Carbon Dioxide (22-29) mmol/L Anion Gap (12-20) BUN (9-16) mg/dL Creatinine (0.5-1.4) mg/dL Estim Creat Clear Calc Estimated GFR Random Glucose (60-115) mg/dL Calcium (8.4-10.2) mg/dL Troponin I High Sens 7.4 (<3.5-17.0) ng/L B-Natriuretic Peptide (<100) pg/mL COVID-19 (ANTHONY) Negative (Negative) COVID-19 Clin Com See Note <Alysha Mcknight MD - Last Filed: 03/11/23 08:06> Independent Interpretation I performed an independent interpretation of an: Rhythm Strip and Plain X-Ray <GREGORY Parker - Last Filed: 03/12/23 17:17> Interpretation: Vent. Rate : 085 BPM ? ? Atrial Rate : 085 BPM ?? P-R Int : 190 ms? QRS Dur : 090 ms ? ? QT Int : 408 ms ? ? ? P-R-T Axes : 046 -05 058 degrees ?? QTc Int : 485 ms ? Sinus rhythm with occasional Premature ventricular complexes Otherwise normal ECG When compared with ECG of 11-MAY-2022 01:12, No significant change was found ? Referred By: Generic ED Physician ? Electronically Signed By:ENZO CRUZ Dictated By: Enzo Cruz MD <GREGORY Parker - Last Filed: 03/12/23 17:17> Radiology Impression Discussion of test interpretation with radiology: I have reviewed the radiologist's reading. <GREGORY Parker - Last Filed: 03/12/23 17:17> Radiologist Impression: EXAMINATION: XR CHEST CLINICAL INFORMATION: Chest pain COMPARISON: Multiple priors with the last chest x-ray of 05/14/2022 TECHNIQUE: Frontal view of the chest was obtained. FINDINGS: Cardiomediastinal silhouette is unchanged with borderline normal cardiac size versus mild cardiomegaly.? No abnormal tracheal deviation. The lungs are adequately expanded. Vascular prominence is again noted, similar to multiple previous x-rays. Streaky retrocardiac opacities do not appear to be significantly changed compared to several previous x-rays and may represent a vascular markings or atelectasis. No definite new airspace opacities are appreciated. No evidence of pleural effusions, changes of overt pulmonary edema or pneumothorax. XR/XR chest 1V IMPRESSION: Likely pulmonary venous congestion without evidence of overt pulmonary edema. No convincing radiographic evidence of pneumonia. ? Dictated By: Alesia Pinzon MD Signed By: <Electronically signed by Alesia Pinzon MD in OV> 03/11/23 0749 DD/ 0659 TD/TT:? Political Science Research Assistant: AP <GREGORY Parker - Last Filed: 03/12/23 17:17> External Record Review External record reviewed: Inpatient record, Office record, Outpatient record, Prior outpatient labs, Prior outpatient radiology, Primary care record and Outside ED record <GREGORY Parker - Last Filed: 03/12/23 17:17> Scores Heart Score History: -2- highly suspicious <GREGORY Parker - Last Filed: 03/12/23 17:17> ECG: -0- normal <GREGORY Parker - Last Filed: 03/12/23 17:17> Age: -2- > or = 65 <GREGORY Parker - Last Filed: 03/12/23 17:17> Risk factory: -2- 3 or more risk factors or treated atherosclerosis <GREGORY Parker - Last Filed: 03/12/23 17:17> Troponin: -1- >1 - <3x normal limit <GREGORY Parker - Last Filed: 03/12/23 17:17> Score: 7 <GREGORY Parker - Last Filed: 03/12/23 17:17> 7 <Alysha Mcknight MD - Last Filed: 03/11/23 08:06> Risk: 50.1% <GREGORY Parker - Last Filed: 03/12/23 17:17> 50.1% <Alysha Mcknight MD - Last Filed: 03/11/23 08:06> Critical Care Time Critical Care Time Critical Care Time: Yes <GREGORY Parker - Last Filed: 03/12/23 17:17> Total Critical Care Time: 45 <GREGORY Parker - Last Filed: 03/12/23 17:17> Attestation: I have personally provided critical care time exclusive of time spent on separately billable procedures. Time includes review of lab data, radiology results, discussion with consultants, and monitoring for potential decompensation. Intervention performed as documented. [place]ensive [place]ipple [place] [facility] [place] [facility] [place] <GREGORY Parker - Last Filed: 03/12/23 17:17> Discharge Plan Discharge Clinical Impression: Chest pain <GREGORY Parker - Last Filed: 03/12/23 17:17> [facility] <GREGORY Parker - Last Filed: 03/12/23 17:17> Transfer Details: [facility] - direct admit for cardiac cath <GREGORY Parker - Last Filed: 03/12/23 17:17> [facility] - direct admit for cardiac cath <Alysha Mcknight MD - Last Filed: 03/11/23 08:06> Prescriptions: No Action bumetanide 2 mg tablet 2 mg PO BID Qty: 60 2RF metolazone 2.5 mg tablet 2.5 mg PO Q48H pravastatin 40 mg tablet 40 mg PO DAILY meloxicam 15 mg tablet 15 mg PO DAILY diltiazem HCl [Tiadylt ER] 360 mg capsule,extended release 24 hr 360 mg PO DAILY allopurinol 100 mg tablet 100 mg PO DAILY gemfibrozil 600 mg tablet 600 mg PO DAILY omeprazole 20 mg capsule,delayed release(DR/EC) 20 mg PO DAILY metformin 500 mg tablet extended release 24 hr 500 mg PO DAILY loratadine [Claritin] 10 mg Tablet 10 mg PO DAILY oxymetazoline [Mucinex Sinus-Max] 0.05 % Oneill,Non-Aerosol 1 spray INTRANASAL Q12H guaifenesin [Mucinex] 600 mg Tablet Extended Release 12hr 1,200 mg PO Q12H dexamethasone 6 mg tablet 6 mg PO DAILY Qty: 4 0RF <GREGORY Parker - Last Filed: 03/12/23 17:17> Interventions: Acute Care Transfer Worksheet (ED) Last Done: 03/11/23 17:01 <GREGORY Parker - Last Filed: 03/12/23 17:17> Discharge Date/Time: 03/11/23 17:03 <GREGORY Parker - Last Filed: 03/12/23 17:17>
[2023-03-11] MEDS: Acetaminophen 325 MG TABLET 975 MG PO (07:36)
[2023-03-11 07:54] LABS: B Type Natriuretic Peptide 60 pg/mL (<100)
[2023-03-11 08:09] LABS: Troponin-I High Sensitivity 5.9 ng/L (<3.5-17.0)
--- NOTE | 2023-03-11 09:10 | PC.NURSE ---
Cardiology at bedside at this time
--- NOTE | 2023-03-11 09:38 | MHC.EDTECH ---
@9:25 the GREGORY Chow called the transfer line to [facility] for a direct admit to Cardiology Spoke with Stormy and gave demographics and asked to speak with PA
--- NOTE | 2023-03-11 10:02 | P.CONCA_ITS ---
History of Present Illness History of Present Illness Date of Service: 03/11/23 Chief complaint: CP Narrative: This is a cardiology consultation regarding chest pain. Patient is generally seen by Dr. Gonzales in clinic. She was recently seen in follow-up. It seems that she had a positive stress test in the past and that was supposed to be followed by coronary CTA but not yet performed. It seems that she had a fall in December leading to subdural hematoma and surgery for the same. At the current time, patient is here for other chest pain. She states that she was sleeping all of a sudden she woke up with left-sided chest pain that radiated to the left jaw as well as to the left shoulder and left arm. This last for several minutes prompting ER visit. So far, there is no evidence of ACS. However, because of concern for underlying coronary disease, we have been consulted. At the time of this encounter itself, she is pain free. States she otherwise feels okay. She has had some chest pains intermittently but nothing on a regular basis. Per last office note, it seems that she is rather treated for right heart failure. Review of Systems Review of Systems: Yes all other systems are reviewed and are negative Constitutional: Constitutional: Reports as per HPI and Reports no additional constitutional complaints Eyes: Eyes: Reports as per HPI and Denies no additional eye complaints ENT: Denies system reviewed and no additional complaints, except as documented and Reports as per HPI Cardiovascular: Cardiovascular: Reports as per HPI, Reports no additional cardiovascular complaints, Denies acrocyanosis, Denies cool extremities, Reports chest pain, Denies leg edema, Denies lightheadedness, Denies palpitations and Denies dyspnea Respiratory: Respiratory: Reports as per HPI, Denies no additional respiratory complaints and Denies dyspnea Gastrointestinal: Gastrointestinal: Reports as per HPI and Denies no additional gastrointestinal complaints Genitourinary: Genitourinary: Reports as per HPI Musculoskeletal: Musculoskeletal: Reports no additional musculoskeletal complaints and Reports as per HPI Integumentary/Breasts: Skin/Breast: Reports system reviewed and no additional complaints, except as docu Neurologic: Reports system reviewed and no additional complaints, except as documented and Reports as per HPI Psychiatric: Psychiatric: Reports no additional psychiatric complaints and Reports as per HPI Endocrine: Endocrine: Reports no additional endocrine complaints, Reports as per HPI and Denies palpitations Hematologic/Lymphatic: Hematologic/Lymphatic: Reports no additional hematologic/lymphatic complaints and Reports as per HPI Allergic/Immunologic: Allergic/Immunologic: Reports no additional allergic/immunologic complaints and Reports as per HPI [facility] Past Medical History Medical History Arthritis COPD (chronic obstructive pulmonary disease) Dyslipidemia Hypertension Hypertension Lymphedema Morbid obesity PVC (premature ventricular contraction) Type 2 diabetes mellitus Family History Family History Mother Coronary artery disease Surgical History Surgical History History of hysterectomy History of knee replacement Social History Social History Household Members: Significant Other Housing: Apartment Do you presently have visiting nurse or other home services: No Alcohol intake: never Patient Tobacco Use Status: Never used Tobacco e-Cigarette/Vaping Use: Never Used Second Hand Smoke Exposure: No Advance Directives: No Advance Directives Information Provided: No service: No Current occupational status: retired [employer] Allergies Allergy/AdvReac Type Severity Reaction Status Date / Time mold [MOLD] Allergy Intermediate COUGHING, Verified 02/26/23 12:49 SINUS CONGESTION Penicillins [PENICILLINS] Allergy Intermediate REVERSE Verified 02/26/23 12:49 REACTION MAKES PT FEEL WORSE Home Medications Medication Instructions Recorded Confirmed Last Taken Type allopurinol 100 mg tablet 100 mg PO DAILY 09/05/21 02/26/23 05/10/22 History diltiazem HCl 360 mg capsule,24 360 mg PO DAILY 09/05/21 02/26/23 05/10/22 History hr,extended release (Tiadylt ER) gemfibrozil 600 mg tablet 600 mg PO DAILY 09/05/21 02/26/23 05/10/22 History loratadine 10 mg tablet (Claritin) 10 mg PO DAILY 09/05/21 02/26/23 05/10/22 H istory meloxicam 15 mg tablet 15 mg PO DAILY 09/05/21 02/26/23 05/10/22 History metformin 500 mg tablet,extended 500 mg PO DAILY 09/05/21 02/26/23 05/10/22 History release 24 hr metolazone 2.5 mg tablet 2.5 mg PO Q48H 09/05/21 02/26/23 05/10/22 History omeprazole 20 mg capsule,delayed 20 mg PO DAILY 09/05/21 02/26/23 05/10/22 History release pravastatin 40 mg tablet 40 mg PO DAILY 09/05/21 02/26/23 05/10/22 History guaifenesin 600 mg tablet, 1,200 mg PO Q12H 05/10/22 02/26/23 Unknown History extended release 12 hr (Mucinex) oxymetazoline 0.05 % nasal spray 1 spray intranasal Q12H 05/10/22 02/26/23 Unknown History (Mucinex Sinus-Max) Physical Exam Vital Signs: Vital Signs: Last Vital Signs Temp 97.8 F 03/11/23 04:55 Pulse 84 03/11/23 07:03 Resp 16 03/11/23 07:03 BP 170/88 H 03/11/23 07:03 Pulse Ox 92 03/11/23 07:03 O2 Del Method Room Air 03/11/23 07:03 BMI result Body Mass Index 48.7 Const: General: comfortable and no acute distress Orientation/consciousness: patient oriented x3 HEENT: Other: Unremarkable Head: Yes normal to inspection Neck: Neck: Yes normal visual inspection Chest: Chest palpation & inspection: normal inspection of the chest Resp: Auscultation: clear to auscultation bilaterally Cardio: Palpation: normal PMI Heart sounds: S1 normal heart sound present, S2 normal heart sound present, no gallops, no murmurs and no rubs GI: Palpation (GI): Soft to palpation Back/Spine/Pelvis: Other: unremarkable Skin: General skin exam: no rashes or lesions noted Neuro: General: patient oriented x3 Extrem: General: Yes normal to inspection Psych: Mental Status: mental status grossly normal Objective Labs and Meds 03/11/23 04:38 03/11/23 04:38 Lab results: Laboratory Results - last 24 hr 03/11/23 03/11/23 03/11/23 04:38 04:38 04:38 WBC 7.6 RBC 4.22 Hgb 13.2 Hct 41.0 MCV 97.2 MCH 31.3 MCHC 32.2 RDW 14.1 Plt Count 215 MPV 10.3 Immature Gran % (Auto) 0.3 Neut % (Auto) 69.0 Lymph % (Auto) 14.9 L Wirt % (Auto) 8.5 Eos % (Auto) 6.8 H Baso % (Auto) 0.5 Lymph # (Auto) 1.1 L Wirt # (Auto) 0.7 Eos # (Auto) 0.5 H Baso # (Auto) 0.0 Abs Immat Gran (auto) 0.02 Absolute Neuts (auto) 5.3 Absolute Nucleated RBC 0.000 Nucleated RBC % (auto) 0.0 Sodium 143 Potassium 3.8 D Chloride 109 H Carbon Dioxide 25 Anion Gap 13 BUN 21 H Creatinine 0.84 Estim Creat Clear Calc 76.2 Estimated GFR > 60 Random Glucose 104 Calcium 9.1 Troponin I High Sens 5.5 B-Natriuretic Peptide 03/11/23 03/11/23 04:38 07:40 WBC RBC Hgb Hct MCV MCH MCHC RDW Plt Count MPV Immature Gran % (Auto) Neut % (Auto) Lymph % (Auto) Wirt % (Auto) Eos % (Auto) Baso % (Auto) Lymph # (Auto) Wirt # (Auto) Eos # (Auto) Baso # (Auto) Abs Immat Gran (auto) Absolute Neuts (auto) Absolute Nucleated RBC Nucleated RBC % (auto) Sodium Potassium Chloride Carbon Dioxide Anion Gap BUN Creatinine Estim Creat Clear Calc Estimated GFR Random Glucose Calcium Troponin I High Sens 5.9 B-Natriuretic Peptide 60 ECG Interpretation: EKG with sinus rhythm at 85/Min; premature ventricular contractions; normal VA; corrected QT 485 milliseconds. Imaging Radiologist's impression: Impressions Chest X-Ray 03/11/23 06:59 IMPRESSION: Likely pulmonary venous congestion without evidence of overt pulmonary edema. No convincing radiographic evidence of pneumonia. Assessment and Plan (1) Chest pain: Status: Acute (2) Abnormal nuclear stress test: Status: Acute (3) Unstable angina: Status: Acute Plan Clinical history of chest pain, left jaw, left shoulder and left arm pain happening at rest suggestive of cardiac etiology. EKG is not showing any clear-cut ST-T changes. Labs creatinine 0.84. BUN is 21. High sensitivity troponins are 5.5 and 5.9. Chest x-ray reported have venous congestion but no overt edema. Echocardiogram last year with LVEF of 60-65%. No wall motion abnormalities. Mildly increased at ventricular size. Moderately increased right atrial pressure, mild pulmonary hypertension. Myocardial perfusion imaging study from October shows basal anterolateral/basal lateral wall ischemia. In that study, gated LVEF 49%. Overall, based on the clinical history and risk factor profile, recommend diagnostic catheterization. For medications, can use IV heparin drip unless there is any neurological contraindication for the same. Otherwise, aspirin. Beta-blockers. Transfer to [facility] for further care. Discussed with ER provider. Procedures Date of Service Date of Service: 03/11/23
[2023-03-11 10:46] VITALS: BMI 50.2
--- NOTE | 2023-03-11 10:46 | PC.NURSE ---
22G placed in pts L hand
[2023-03-11 10:48] LABS: INTERNATIONAL NORM RATIO 0.9 (0.9-1.1); Prothrombin Time 10.8 SEC (10.0-13.1)
[2023-03-11 10:51] VITALS: BP 173/91; PULSE 93; RESP 12; O2SAT 94
[2023-03-11 10:51] LABS: PTT Heparin Drip 35.7 SEC (53-77.9)
[2023-03-11] MEDS: Heparin Sodium,Porcine 5,000 UNIT/ML VIAL 4000 UNIT IVPUSH (11:21)
[2023-03-11] MEDS: Aspirin 81 MG TAB.CHEW 324 MG PO (11:21)
[2023-03-11] MEDS: Heparin Sodium,Porcine/1/2NS 25,000 UNIT/250 ML IV.SOLN 10 UNIT IVCONT (11:27)
--- NOTE | 2023-03-11 12:09 | MHC.EDTECH ---
Pt was repositioned @1209 to left side, purewick repositoned also and suctioning properly
[2023-03-11 14:44] VITALS: BP 172/85; PULSE 95; RESP 17; TEMP 36.8; O2SAT 92
--- NOTE | 2023-03-11 15:29 | MHC.EDTECH ---
@[id number] CALL RECEIVED FROM YANDEL OF THE [facility] LINE WITH REQUEST FOR COVID AND WITH ROOM ASSIGNMENT MASS MUTUAL 5, ROOM 32 RN TO RN: [phone] DR SUMMERS ACCEPTING THIS TRANSFER
--- NOTE | 2023-03-11 15:42 | MHC.EDTECH ---
Patient rang stating she needed to have a BM, and Pt was put on a bedpan. Was found to be wet as well; Pt was cleaned up and bedding and gown was changed. New purewick placed.
--- NOTE | 2023-03-11 16:02 | ECG_ITS ---
Test Reason : CHEST PAIN Blood Pressure : / mmHG Vent. Rate : 093 BPM Atrial Rate : 093 BPM P-R Int : 190 ms QRS Dur : 088 ms QT Int : 384 ms P-R-T Axes : 055 -05 058 degrees QTc Int : 477 ms Sinus rhythm with occasional Premature ventricular complexes Otherwise normal ECG When compared with ECG of 11-MAR-2023 04:23, No significant change was found Referred By: Claudine Serrato Electronically Signed By:KASSY GALINDO
[2023-03-11 16:18] VITALS: BP 165/91; PULSE 97; RESP 14; O2SAT 92
[2023-03-11] MEDS: Nitroglycerin 2 % Oint 1 GM Packet 1 INCH TRANSDERMA (16:20)
[2023-03-11 16:23] LABS: COVID-19 Test Negative (Negative); IDNOW Serial# 08D9AD1C
[2023-03-11 16:42] LABS: Troponin-I High Sensitivity 7.4 ng/L (<3.5-17.0)
== END 2023-03-11 17:03 | disposition short-term general hospital (02) ==
PROVIDERS: Physician Assistant Medical; Emergency Provider Emergency Medicine Emergency Medical Services; PCP Internal Medicine
DX: R07.89 Other chest pain (principal); I20.0 Unstable angina; R06.02 Shortness of breath; R94.39 Abnormal result of other cardiovascular function study; I10 Essential (primary) hypertension; J44.9 Chronic obstructive pulmonary disease, unspecified; Z20.822 Contact with and (suspected) exposure to COVID-19; Z20.828 Contact with and (suspected) exposure to other viral communicable diseases; Z79.899 Other long term (current) drug therapy
CPT/HCPCS: 36415; 71045; 80048; 83880; 84484; 85025; 85610; 85730; 87635; 93005; 96365; 96366; 96375; 99285; J1643

== ENCOUNTER 2023-03-29 13:29 | Emergency (ER) | payer MEDICARE, SELFPAY ==
--- NOTE | ~2023-03-29 | CT_ITS ---
EXAMINATION: CT ABDOMEN AND PELVIS WITH CONTRAST CLINICAL INFORMATION: Upper abdominal pain, diarrhea, black stool COMPARISON: CT abdomen pelvis 09/04/2021 TECHNIQUE: Multidetector volumetric images were obtained from the superior aspect of the liver through the pubic symphysis following administration 85 mL of Omnipaque 350 intravenous contrast. Sagittal and coronal reformatted images were obtained on the technologist's workstation. Oral contrast: No This CT examination was performed using dose optimization techniques as appropriate, variously including the following: *Automated exposure control *Adjustment of mA and/or kV according to patient size (this includes techniques or standardized protocols for targeted exams where dose is matched to indication/reason for exam; i.e. extremities or head) *Use of iterative reconstruction technique DLP: 1083 mGy-cm FINDINGS: LUNG BASES: Unremarkable. ABDOMINAL AND PELVIC WALL: Small fat-containing umbilical hernia. LIVER AND BILIARY TREE: Benign-appearing hepatic cysts and few hepatic hypodensities too small to characterize. GALLBLADDER: Unremarkable. PANCREAS: Unremarkable. SPLEEN: Subcentimeter fluid attenuation splenic cyst. Incidentally noted accessory splenule. ADRENAL GLANDS: Unremarkable. KIDNEYS AND URETERS: Bosniak 1 benign-appearing left renal cysts, no imaging follow-up recommended. GASTROINTESTINAL TRACT: Small hiatal hernia. Diffuse marked gastric wall thickening, measuring up to 2.6 cm in thickness.. Colonic diverticulosis without evidence of diverticulitis. The appendix is not identified however there are no secondary findings of appendicitis. Diana appearance of the central mesentery with small mesenteric nodes unchanged from priors which could be seen in the setting of mesenteric panniculitis. VASCULAR: Unremarkable. LYMPH NODES/PERITONEUM: Few small periesophageal nodes at the gastroesophageal junction not pathologically enlarged measuring up to 0.6 cm short axis. FREE FLUID: None. BLADDER: Unremarkable. PELVIC VISCERA: Status post hysterectomy. Right inguinal and pelvic surgical clips. OSSEOUS STRUCTURES: Grade 1 retrolisthesis of L1 on L2. Multilevel degenerative disc disease. CT/CT abdomen pelvis w IV con IMPRESSION: 1. Diffuse marked gastric wall thickening measuring up to 2.6 cm in thickness. Recommend correlation with symptoms of gastritis, however given degree of wall thickening underlying neoplasm, specifically gastric lymphoma, could have a similar appearance and recommend correlation with endoscopy if clinically appropriate. 2. Few prominent periesophageal nodes at the gastroesophageal junction measuring up to 0.6 cm, of indeterminate etiology. Recommend correlation with endoscopic findings. 3. Diana appearance of the central mesentery with small mesenteric nodes unchanged from priors which could be seen in the setting of mesenteric panniculitis. 4. Colonic diverticulosis without evidence of diverticulitis.
--- NOTE | ~2023-03-29 | XR_ITS ---
EXAMINATION: XR CHEST CLINICAL INFORMATION: Chest pain COMPARISON: None available. TECHNIQUE: Frontal view of the chest was obtained. FINDINGS: The lungs are well-expanded and clear. The heart size and pulmonary vascularity is normal. No gross bony abnormality seen. XR/XR chest 1V IMPRESSION: Unremarkable chest exam.
[2023-03-29 13:46] VITALS: BP 143/68; PULSE 63; RESP 20; TEMP 35.9; O2SAT 93; BMI 47.6
--- NOTE | 2023-03-29 13:46 | ED_ITS ---
HPI - General Adult General Chief complaint: Abdominal Pain Stated complaint: black stools Time Seen by Provider: 03/29/23 14:32 Source: patient, RN notes reviewed and old records reviewed Mode of arrival: ambulatory History of Present Illness HPI narrative: 82-year-old female with past medical history of COPD, HLD, HTN, lymphedema, obesity, diabetes, presenting to the ED complaining of loose black stool since yesterday with associated abdominal discomfort, nausea, and lightheadedness. Also reports upper chest pain x today and dysuria. Patient takes ASA, denies other anticoagulation. Denies fever, chest pain, vomiting, hematuria Onset (ago): day(s) Related Data Home Medications Medication Instructions Recorded Confirmed allopurinol 100 mg tablet 100 mg PO DAILY 09/05/21 02/26/23 diltiazem HCl 360 mg capsule,24 360 mg PO DAILY 09/05/21 02/26/23 hr,extended release (Tiadylt ER) gemfibrozil 600 mg tablet 600 mg PO DAILY 09/05/21 02/26/23 loratadine 10 mg tablet (Claritin) 10 mg PO DAILY 09/05/21 02/26/23 meloxicam 15 mg tablet 15 mg PO DAILY 09/05/21 02/26/23 metformin 500 mg tablet,extended 500 mg PO DAILY 09/05/21 02/26/23 release 24 hr metolazone 2.5 mg tablet 2.5 mg PO Q48H 09/05/21 02/26/23 omeprazole 20 mg capsule,delayed 20 mg PO DAILY 09/05/21 02/26/23 release pravastatin 40 mg tablet 40 mg PO DAILY 09/05/21 02/26/23 guaifenesin 600 mg tablet, 1,200 mg PO Q12H 05/10/22 02/26/23 extended release 12 hr (Mucinex) oxymetazoline 0.05 % nasal spray 1 spray intranasal Q12H 05/10/22 02/26/23 (Mucinex Sinus-Max) Previous Rx's Medication Instructions Recorded dexamethasone 6 mg tablet 6 mg PO DAILY #4 tabs 05/15/22 bumetanide 2 mg tablet 2 mg PO BID #60 tabs 01/28/23 Allergies Allergy/AdvReac Type Severity Reaction Status Date / Time mold [MOLD] Allergy Intermediate COUGHING, Verified 05/26/23 13:49 SINUS CONGESTION Penicillins [PENICILLINS] Allergy Intermediate REVERSE Verified 03/29/23 13:49 REACTION MAKES PT FEEL WORSE Review of Systems Review of Systems: Constitutional: No Fever, No Chills, No Fatigue, No Malaise ENT/Mouth: No Ear Pain, No Nasal Congestion, No sore throat, No Rhinorrhea, No Swallowing Difficulty Eyes: No Eye Pain, No Swelling, No Redness, No Vision Changes Cardiovascular: + Chest Pain, No SOB, No Dyspnea on Exertion, No Orthopnea, +chronic Edema, No Palpitations Respiratory: No Cough, No Sputum, No Dyspnea Gastrointestinal: + Nausea, No Vomiting, + Diarrhea, No Constipation, + Abdominal pain, No Hematochezia, +Melena Genitourinary: +Dysuria, No Urinary Frequency, No Hematuria, No Flank Pain Musculoskeletal: No joint pain, No Myalgias, No Joint Swelling Skin: No Skin Lesions, No rash Neuro: No Weakness, No Numbness, + lightheaded, No Headache Yes all other systems are reviewed and are negative Constitutional: Constitutional: Reports as per [facility] Past Medical History Attestation statement: The following information was validated with the patient. Source: old records reviewed Medical History Arthritis COPD (chronic obstructive pulmonary disease) Dyslipidemia Hypertension Hypertension Lymphedema Morbid obesity PVC (premature ventricular contraction) Type 2 diabetes mellitus Surgical History History of hysterectomy History of knee replacement Family History Family History Mother Coronary artery disease Social History Social History Household Members: Significant Other Housing: Apartment Do you presently have visiting nurse or other home services: No Alcohol intake: never Patient Tobacco Use Status: Never used Tobacco Smoked in Last 30 Days: No e-Cigarette/Vaping Use: Never Used Second Hand Smoke Exposure: No Use of substances other than those prescribed or required for medical reasons: No Advance Directives: No Advance Directives Information Provided: No service: No Current occupational status: retired Physical Exam ED Vital Signs: Vital Signs - 24 hr 03/29/23 13:46 03/29/23 14:58 03/29/23 16:20 Temperature 96.6 F L 97.8 F 98.7 F Pulse Rate 63 65 69 Respiratory Rate 20 17 14 Blood Pressure 143/68 H 140/69 H 155/66 H Pulse Oximetry 93 93 93 Oxygen Delivery Method Room Air Room Air Room Air 03/29/23 18:41 Temperature 97.6 F Pulse Rate 74 Respiratory Rate 15 Blood Pressure 143/64 H Pulse Oximetry 92 Oxygen Delivery Method Room Air BMI result Body Mass Index 47.6 Const General: cooperative, healthy appearing and no acute distress Orientation/consciousness: patient oriented x3 Limitations: no limitations HENMT Head: Yes normal to inspection and Yes atraumatic Ears: hearing grossly normal bilaterally General nose exam: Normal external nose present Face and sinus: Yes normal facial exam Eyes General: appearance normal, both eyes and all related structures EOM: EOMs intact bilaterally Neck Neck: Yes normal visual inspection and Yes no meningeal signs Resp Effort & Inspection: normal respiratory effort and no respiratory distress Auscultation: clear to auscultation bilaterally and no wheezes Cardio Rate: regular rate Heart sounds: S1 normal heart sound present and S2 normal heart sound present GI Inspection: Yes normal to inspection Palpation (GI): Soft to palpation, Tenderness to palpation present (GI) in the epigastrum, in the LLQ and in the RUQ; with no rebound tenderness, no guarding and not rigid General: Yes no CVA tenderness Back/Spine/Pelvis Back: no CVA tenderness Skin Rashes: no rashes Wounds: no wounds Neuro General: patient oriented x3, tone normal and no meningeal signs Gait exam (Neuro): Normal gait present Extrem Other: + chronic bilateral lower extremity lymphedema Course Course Course Narrative: RME performed by Neyda Barry PA-C. Patient is a 82 year old assigned female at presenting to the emergency department with body aches and b loody stool. Patient is on ASA. Labs ordered. Patient placed back in the waiting room pending room availability and results. -1511--no leukocytosis. H&H stable. Potassium low at 3.1 > 60 mEq p.o. repletion ordered. BUN acute on chronically elevated to 58 -1610--troponin 6.6 (chronically elevated) > will obtain 3 hour repeat. BNP 337, acute on chronically elevated -occult stool negative. CXR unremarkable -1630--ED care transferred to [facility] Pedraza pending repeat troponin, CT and dispo per results Reevaluation(s) Reevaluation #1: Discussed CT results with patient. Troponin negative x2. Patient feeling be tter. Educated patient on diagnosis and treatment plan, answered all question, patient verbalizes understanding. At this time patient will be discharged home, advised to return with new or worsening symptoms. Educated on worrisome signs and symptoms and when to return. At this time I feel comfortable discharge home. Time: 19:23 Medications Administered Discontinued Medications Generic Name Dose Route Start Last Admin Trade Name Freq PRN Reason Stop Dose Admin Acetaminophen 650 mg 03/29/23 16:12 03/29/23 16:19 Acetaminophen 325 Mg Tablet PO 03/29/23 16:13 650 mg ONCE ONE Administration Cyclobenzaprine HCl 5 mg 03/29/23 16:12 03/29/23 16:19 Cyclobenzaprine Hcl 5 Mg Tablet PO 03/29/23 16:13 5 mg ONCE ONE Administration Iohexol 100 ml 03/29/23 17:18 03/29/23 17:18 Iohexol 350 Mg/Ml 100 Ml Infus..Btl IV 03/29/23 17:19 85 ml ONCE ONE Administration Potassium Chloride 60 meq 03/29/23 15:08 03/29/23 15:35 Potassium Chloride Er 20 Meq Tab.Er.Prt PO 03/29/23 15:09 60 meq ONCE ONE Administration Medical Decision Making Medical Decision Making MDM Narrative: 82-year-old female with past medical history of COPD, HLD, HTN, lymphedema, o besity, diabetes, presenting to the ED complaining of loose black stool since yesterday with associated abdominal discomfort, nausea, and lightheadedness. Also reports upper chest pain x today and dysuria. On exam vital signs stable, NAD, nontoxic appearing, abdomen soft with upper tenderness to palpation, no rebound or guarding, chronic bilateral lymphedema. Concern for PUD/UGIB vs ?Cholecystitis/lithiasis vs UTI. Lower suspicion for appendicitis/diverticulitis at this time. Rule out ACS Plan: EKG, labs, CXR, occult stool, re-evaluate Please refer to course for remaining clinical decision making, interpretation of labs/imaging results, and discussions with consultants and/or family members. Differential Diagnosis Differential Diagnoses: The differential diagnosis associated with the presentation includes As above Admission/Observation Consideration of admission/observation: Escalation of care including admission/observation considered Lab Data MDM Lab Attestation statement: I reviewed the patient's lab results. 03/29/23 14:02 03/29/23 14:02 Labs: Lab Results 03/29/23 03/29/23 03/29/23 Range/Units 14:02 14:02 14:02 WBC 10.5 (4.8-10.8) X10*3/uL RBC 4.58 (4.20-5.50) X10*6/uL Hgb 14.2 (12.0-16.0) g/dl Hct 43.9 (37.0-47.0) % MCV 95.9 (80.0-98.0) fL MCH 31.0 (27.0-33.0) pg MCHC 32.3 (31.0-35.0) g/dl RDW 14.0 (11.0-16.0) % Plt Count 241 (160-400) X10*3/uL MPV 11.2 (9.4-12.3) fL Immature Gran % (Auto) 0.3 (0.0-0.4) % Neut % (Auto) 71.5 (45-73) % Lymph % (Auto) 12.4 L (20-40) % [place] % (Auto) 10.1 (2-11) % Eos % (Auto) 5.3 H (0-4) % Baso % (Auto) 0.4 (0-2) % Lymph # (Auto) 1.3 (1.2-4.9) X10*3/uL [place] # (Auto) 1.1 (0.1-1.2) X10*3/uL Eos # (Auto) 0.6 H (0.0-0.4) X10*3/uL Baso # (Auto) 0.0 (0.0-0.2) X10*3/uL Abs Immat Gran (auto) 0.03 (0.00-0.03) X10*3/uL Absolute Neuts (auto) 7.5 (2.0-8.3) x10*3/uL Absolute Nucleated RBC 0.000 (0.0-0.012) X10*3/uL Nucleated RBC % (auto) 0.0 (0.0-0.2) /100WBC PT 10.7 (10.0-13.1) SEC INR 0.9 (0.9-1.1) APTT 34.5 (26.0-36.4) SEC Sodium 143 (135-145) mmol/L Potassium 3.1 L (3.3-5.1) mmol/L Chloride 98 (96-108) mmol/L Carbon Dioxide 31 H (22-29) mmol/L Anion Gap 17 (12-20) BUN 58 H (9-16) mg/dL Creatinine 1.39 (0.5-1.4) mg/dL Estim Creat Clear Calc 43.9 Estimated GFR 36 Random Glucose 130 H (60-115) mg/dL Calcium 9.7 D (8.4-10.2) mg/dL Magnesium 2.6 (1.6-2.6) mg/dL Total Bilirubin 0.4 (0.0-1.0) mg/dL AST 12 (5-31) U/L ALT 5 (0-31) U/L Alkaline Phosphatase 109 (39-117) U/L Troponin I High Sens (<3.5-17.0) ng/L B-Natriuretic Peptide (<100) pg/mL Total Protein 7.2 (6.5-8.0) g/dL Albumin 4.1 (3.5-5.0) g/dL Lipase 53 (8-78) U/L Stool Occult Blood (NEGATIVE) 03/29/23 03/29/23 03/29/23 Range/Units 14:56 15:30 15:30 WBC (4.8-10.8) X10*3/uL RBC (4.20-5.50) X10*6/uL Hgb (12.0-16.0) g/dl Hct (37.0-47.0) % MCV (80.0-98.0) fL MCH (27.0-33.0) pg MCHC (31.0-35.0) g/dl RDW (11.0-16.0) % Plt Count (160-400) X10*3/uL MPV (9.4-12.3) fL Immature Gran % (Auto) (0.0-0.4) % Neut % (Auto) (45-73) % Lymph % (Auto) (20-40) % [place] % (Auto) (2-11) % Eos % (Auto) (0-4) % Baso % (Auto) (0-2) % Lymph # (Auto) (1.2-4.9) X10*3/uL [place] # (Auto) (0.1-1.2) X10*3/uL Eos # (Auto) (0.0-0.4) X10*3/uL Baso # (Auto) (0.0-0.2) X10*3/uL Abs Immat Gran (auto) (0.00-0.03) X10*3/uL Absolute Neuts (auto) (2.0-8.3) x10*3/uL Absolute Nucleated RBC (0.0-0.012) X10*3/uL Nucleated RBC % (auto) (0.0-0.2) /100WBC PT (10.0-13.1) SEC INR (0.9-1.1) APTT (26.0-36.4) SEC Sodium (135-145) mmol/L Potassium (3.3-5.1) mmol/L Chloride (96-108) mmol/L Carbon Dioxide (22-29) mmol/L Anion Gap (12-20) BUN (9-16) mg/dL Creatinine (0.5-1.4) mg/dL Estim Creat Clear Calc Estimated GFR Random Glucose (60-115) mg/dL Calcium (8.4-10.2) mg/dL Magnesium (1.6-2.6) mg/dL Total Bilirubin (0.0-1.0) mg/dL AST (5-31) U/L ALT (0-31) U/L Alkaline Phosphatase (39-117) U/L Troponin I High Sens 6.6 (<3.5-17.0) ng/L B-Natriuretic Peptide 337 H (<100) pg/mL Total Protein (6.5-8.0) g/dL Albumin (3.5-5.0) g/dL Lipase (8-78) U/L Stool Occult Blood NEGATIVE (NEGATIVE) 03/29/23 Range/Units 18:49 WBC (4.8-10.8) X10*3/uL RBC (4.20-5.50) X10*6/uL Hgb (12.0-16.0) g/dl Hct (37.0-47.0) % MCV (80.0-98.0) fL MCH (27.0-33.0) pg MCHC (31.0-35.0) g/dl RDW (11.0-16.0) % Plt Count (160-400) X10*3/uL MPV (9.4-12.3) fL Immature Gran % (Auto) (0.0-0.4) % Neut % (Auto) (45-73) % Lymph % (Auto) (20-40) % [place] % (Auto) (2-11) % Eos % (Auto) (0-4) % Baso % (Auto) (0-2) % Lymph # (Auto) (1.2-4.9) X10*3/uL [place] # (Auto) (0.1-1.2) X10*3/uL Eos # (Auto) (0.0-0.4) X10*3/uL Baso # (Auto) (0.0-0.2) X10*3/uL Abs Immat Gran (auto) (0.00-0.03) X10*3/uL Absolute Neuts (auto) (2.0-8.3) x10*3/uL Absolute Nucleated RBC (0.0-0.012) X10*3/uL Nucleated RBC % (auto) (0.0-0.2) /100WBC PT (10.0-13.1) SEC INR (0.9-1.1) APTT (26.0-36.4) SEC Sodium (135-145) mmol/L Potassium (3.3-5.1) mmol/L Chloride (96-108) mmol/L Carbon Dioxide (22-29) mmol/L Anion Gap (12-20) BUN (9-16) mg/dL Creatinine (0.5-1.4) mg/dL Estim Creat Clear Calc Estimated GFR Random Glucose (60-115) mg/dL Calcium (8.4-10.2) mg/dL Magnesium (1.6-2.6) mg/dL Total Bilirubin (0.0-1.0) mg/dL AST (5-31) U/L ALT (0-31) U/L Alkaline Phosphatase (39-117) U/L Troponin I High Sens 8.3 (<3.5-17.0) ng/L B-Natriuretic Peptide (<100) pg/mL Total Protein (6.5-8.0) g/dL Albumin (3.5-5.0) g/dL Lipase (8-78) U/L Stool Occult Blood (NEGATIVE) Radiology Impression Discussion of test interpretation with radiology: I have reviewed the radiologist's reading. External Record Review External record reviewed: Inpatient record, Office record, Outpatient record, Prior outpatient labs, Prior outpatient radiology, Primary care record and Outside ED record Tests considered The following testing was considered but not selected: As above Critical Care Time Critical Care Time Critical Care Time: No Discharge Plan Discharge Clinical Impression: Chest pain, Black stool, Acute upper abdominal pain Patient Disposition: Home, Self-Care Instructions: Abdominal Pain (ED) Additional Instructions: Your blood work is reassuring Your x-ray is unremarkable You need to have close follow-up with her doctor If symptoms persist or worsen return to the ED Due to underlined results below please follow up with GI info below CT/CT abdomen pelvis w IV con IMPRESSION: 1.? Diffuse marked gastric wall thickening measuring up to 2.6 cm in thickness. Recommend correlation with symptoms of gastritis, however given degree of wall thickening underlying neoplasm, specifically gastric lymphoma, could have a similar appearance and recommend correlation with endoscopy if clinically appropriate. 2.? Few prominent periesophageal nodes at the gastroesophageal junction measuring up to 0.6 cm, of indeterminate etiology. Recommend correlation with endoscopic findings. 3.? Diana appearance of the central mesentery with small mesenteric nodes unchanged from priors which could be seen in the setting of mesenteric panniculitis. 4.? Colonic diverticulosis without evidence of diverticulitis. ? XR/XR chest 1V IMPRESSION: Unremarkable chest exam. ? Prescriptions: No Action bumetanide 2 mg tablet 2 mg PO BID Qty: 60 2RF metolazone 2.5 mg tablet 2.5 mg PO Q48H pravastatin 40 mg tablet 40 mg PO DAILY meloxicam 15 mg tablet 15 mg PO DAILY diltiazem HCl [Tiadylt ER] 360 mg capsule,extended release 24 hr 360 mg PO DAILY allopurinol 100 mg tablet 100 mg PO DAILY gemfibrozil 600 mg tablet 600 mg PO DAILY omeprazole 20 mg capsule,delayed release(DR/EC) 20 mg PO DAILY metformin 500 mg tablet extended release 24 hr 500 mg PO DAILY loratadine [Claritin] 10 mg Tablet 10 mg PO DAILY oxymetazoline [Mucinex Sinus-Max] 0.05 % [place],Non-Aerosol 1 spray INTRANASAL Q12H guaifenesin [Mucinex] 600 mg Tablet Extended Release 12hr 1,200 mg PO Q12H dexamethasone 6 mg tablet 6 mg PO DAILY Qty: 4 0RF Referrals: [facility] [Provider Group] - 2 days Jovanny Carter MD [Primary Care Provider] - 2 days
--- NOTE | 2023-03-29 14:05 | MHC.EDTECH ---
Labs drawn and sent
[2023-03-29 14:07] LABS: MANUAL DIFF FLAG NO
[2023-03-29 14:10] LABS: Basophils Percent Auto 0.4 % (0-2); Eosinophils Absolute Auto 0.6 X10*3/uL (0.0-0.4); Eosinophils Percent Auto 5.3 % (0-4); Hematocrit 43.9 % (37.0-47.0); Hemoglobin 14.2 g/dl (12.0-16.0); Imm Gran Abs Auto 0.03 X10*3/uL (0.00-0.03); Imm Gran Pct Auto 0.3 % (0.0-0.4); Lymphocytes Absolute Auto 1.3 X10*3/uL (1.2-4.9); Lymphocytes Percent Auto 12.4 % (20-40); Mean Corpuscular HGB Conc 32.3 g/dl (31.0-35.0); Mean Corpuscular Volume 95.9 fL (80.0-98.0); Mean Platelet Volume 11.2 fL (9.4-12.3); Monocytes Absolute Auto 1.1 X10*3/uL (0.1-1.2); Monocytes Percent Auto 10.1 % (2-11); Neutrophils Absolute Auto 7.5 x10*3/uL (2.0-8.3); Neutrophils Percent Auto 71.5 % (45-73); Platelet Count 241 X10*3/uL (160-400); Red Blood Count 4.58 X10*6/uL (4.20-5.50); White Blood Count 10.5 X10*3/uL (4.8-10.8)
[2023-03-29 14:27] LABS: INTERNATIONAL NORM RATIO 0.9 (0.9-1.1); Prothrombin Time 10.7 SEC (10.0-13.1)
[2023-03-29 14:29] LABS: Partial Thromboplastin Time 34.5 SEC (26.0-36.4)
[2023-03-29 14:31] LABS: Alanine Aminotransferase 5 U/L (0-31); Albumin Level 4.1 g/dL (3.5-5.0); Alkaline Phosphatase 109 U/L (39-117); Anion Gap 17 (12-20); Aspartate Amino Transferase 12 U/L (5-31); Bilirubin Total 0.4 mg/dL (0.0-1.0); Blood Urea Nitrogen 58 mg/dL (9-16); Calcium 9.7 mg/dL (8.4-10.2); Carbon Dioxide 31 mmol/L (22-29); Chloride 98 mmol/L (96-108); Creatinine Clr Calc Pharmacy 43.9; Estimated Glomerular Filt Rate 36; Glucose Random 130 mg/dL (60-115); Magnesium 2.6 mg/dL (1.6-2.6); Potassium 3.1 mmol/L (3.3-5.1); Sodium 143 mmol/L (135-145); Total Protein 7.2 g/dL (6.5-8.0)
--- NOTE | 2023-03-29 14:34 | PC.NURSE ---
pt a/o x 4, no sob/zach noted. 02 sat 88-92% on r/a, hx of copd. lungs - diminshed. abd obese, bs + x 4 quads. frank lower legs englarged 2ndary to lymphedema. no edema noted. pt is aware of plan of care.
[2023-03-29 14:58] VITALS: BP 140/69; PULSE 65; RESP 17; TEMP 36.6; O2SAT 93
--- NOTE | 2023-03-29 14:59 | ECG_ITS ---
Test Reason : CP Blood Pressure : / mmHG Vent. Rate : 064 BPM Atrial Rate : 064 BPM P-R Int : 200 ms QRS Dur : 100 ms QT Int : 454 ms P-R-T Axes : 000 192 113 degrees QTc Int : 468 ms Normal sinus rhythm Right superior axis deviation ST & T wave abnormality, consider lateral ischemia Abnormal ECG When compared with ECG of 11-MAR-2023 16:06, Premature ventricular complexes are no longer Present QRS axis Shifted left T wave inversion now evident in Lateral leads Referred By: Meme Oshea Electronically Signed By:KASSY GALINDO
[2023-03-29 15:14] LABS: Lipase 53 U/L (8-78)
[2023-03-29 15:20] LABS: OBS Int Ctl Valid YES; OBS1 NEGATIVE (NEGATIVE)
[2023-03-29] MEDS: Potassium Chloride ER 20 MEQ TAB.ER.PRT 60 MEQ PO (15:35)
--- NOTE | 2023-03-29 15:46 | PC.NURSE ---
report received from JOVITA Dunbar Patient resting on stretcher at this time, endorsing lower back and rib pain. Respirations even and unlabored, normal sinus 60s on the monitor. Pt medicated per MAR at this time. Pt requests pain medication, aware
[2023-03-29 15:58] LABS: B Type Natriuretic Peptide 337 pg/mL (<100); Troponin-I High Sensitivity 6.6 ng/L (<3.5-17.0)
[2023-03-29] MEDS: Cyclobenzaprine HCl 5 MG TABLET PO (16:19)
[2023-03-29] MEDS: Acetaminophen 325 MG TABLET 650 MG PO (16:19)
[2023-03-29 16:20] VITALS: BP 155/66; PULSE 69; RESP 14; TEMP 37.1; O2SAT 93
[2023-03-29] MEDS: iohexoL 350 MG/ML 100 ML INFUS..BTL IV (17:18)
[2023-03-29 18:41] VITALS: BP 143/64; PULSE 74; RESP 15; TEMP 36.4; O2SAT 92
[2023-03-29 19:18] LABS: Troponin-I High Sensitivity 8.3 ng/L (<3.5-17.0)
== END 2023-03-29 19:37 | disposition home or self-care (01) ==
PROVIDERS: Physician Assistant; Physician Assistant Medical; Emergency Provider Emergency Medicine; PCP Internal Medicine
DX: R07.9 Chest pain, unspecified (principal); J06.9 Acute upper respiratory infection, unspecified; K92.1 Melena; Q82.0 Hereditary lymphedema; E11.9 Type 2 diabetes mellitus without complications; I10 Essential (primary) hypertension; E78.5 Hyperlipidemia, unspecified; Z79.02 Long term (current) use of antithrombotics/antiplatelets; Z79.899 Other long term (current) drug therapy; Z79.84 Long term (current) use of oral hypoglycemic drugs
CPT/HCPCS: 36415; 71045; 74177; 80053; 82272; 83690; 83735; 83880; 84484; 85025; 85610; 85730; 93005; 99284; 99285; Q9967

== ENCOUNTER → 2023-04-10 08:26 | Outpatient (BNVA) | payer MEDICARE, SELFPAY | PROVIDERS: PCP Internal Medicine; Visit Provider Internal Medicine Cardiovascular Disease | DX: Z01.810 Encounter for preprocedural cardiovascular examination (principal); I50.810 Right heart failure, unspecified; I25.10 Atherosclerotic heart disease of native coronary artery without angina pectoris | CPT/HCPCS: 99212 ==

== ENCOUNTER → 2023-04-23 14:45 | Outpatient (BNVA) | payer MEDICARE, SELFPAY | PROVIDERS: PCP Internal Medicine; Visit Provider Nurse Practitioner Family | DX: Z01.811 Encounter for preprocedural respiratory examination (principal); J44.9 Chronic obstructive pulmonary disease, unspecified; G47.33 Obstructive sleep apnea (adult) (pediatric) | CPT/HCPCS: 94618; 99202 ==

== ENCOUNTER 2023-05-14 10:26 | Outpatient (AMB) | payer MEDICARE, SELFPAY ==
--- NOTE | 2023-05-14 10:47 | A.OFFVIS_ITS ---
Intake Vital Signs 05/14/23 10:48 Height 5 ft 5 in Weight 292 lb 1.8 oz BMI 48.6 BP 142/74 H Blood Pressure Location Lt brachial Position Sitting Respiration 18 Pulse 76 Pulse Source Pulse Oximeter Pulse Oximetry (%) 92 Oxygen Delivery Method Room Air Intake Visit Reasons: o2 Certification Allergies mold [MOLD] Allergy (Intermediate, Verified 05/14/23 10:48) COUGHING, SINUS CONGESTION Penicillins [PENICILLINS] Allergy (Intermediate, Verified 05/14/23 10:48) REVERSE REACTION MAKES PT FEEL WORSE HPI o2 Certification HPI Details Izabel is an 83 year old female, never smoker, with underlying history of COPD, MAGAN refuses CPAP therapy, right sided heart failure followed by cardiology on diuretics and morbid obesity. At baseline she reports moderate control of symptoms on current regimen of nebulized therapy prescribed by PCP including Performist and Albuterol. She continues to report productive cough, moderate dyspnea on minimal exertion and intermittent wheezing. At the last visit, she was wheezing on exam and given prednisone. She denies any symptomatic improvements but no wheezing appreciated today. We had previously discussed the use of oxygen which she had refused but returns today to discuss. [facility] Medical History (Updated 05/14/23 @ 12:05 by Aida Quinn NP) Arthritis CAD (coronary artery disease) COPD (chronic obstructive pulmonary disease) Dyslipidemia Hypertension Hypertension Lymphedema Morbid obesity PVC (premature ventricular contraction) Type 2 diabetes mellitus Surgical History History of hysterectomy History of knee replacement Family History Mother Coronary artery disease Social History Household Members: Significant Other Housing: Apartment Do you presently have visiting nurse or other home services: No Alcohol intake: never Patient Tobacco Use Status: Never used Tobacco e-Cigarette/Vaping Use: Never Used Second Hand Smoke Exposure: No service: No Current occupational status: retired Review of Systems Const Denies chills, Denies excessive sweating, Denies fever(s), Denies headache(s) and Denies night sweats Eyes Denies dry eyes, Denies irritation and Denies itchy eyes ENT Reports Normal hearing present and Denies headache(s) Card Denies chest pain, Denies chest pain at rest, Denies chest pain with activity, Reports dyspnea, Reports dyspnea on exertion and Reports orthopnea Resp Denies change in phlegm color, Reports chest congestion, Reports cough, Denies hemoptysis, Denies excessive phlegm production, Denies pain on inspiration, Denies pain with cough, Reports dyspnea, Reports dyspnea on exertion, Denies stridor and Reports wheezing Musc Denies myalgias Neuro Reports Normal hearing present and Denies headache(s) Endo Denies excessive sweating Matthias/Lymph Denies lymphadenopathy Aller/Immun Denies itchy eyes, Denies seasonal rhinorrhea and Reports wheezing Physical Exam Vital Signs: Last Vital Signs Pulse 76 05/14/23 10:48 Resp 18 05/14/23 10:48 BP 142/74 H 05/14/23 10:48 Pulse Ox 92 05/14/23 10:48 Oxygen Delivery Method Room Air 05/14/23 10:48 BMI result Body Mass Index 48.6 Const General: cooperative, comfortable, no acute distress and alert Nutritional Appearance: obese Orientation/consciousness: patient oriented x3 HEENT Head: Yes normal to inspection, Yes normocephalic and Yes atraumatic Ears: hearing grossly normal bilaterally and external ears normal Eyes Eyelids: Yes eyelids normal Sclerae: sclerae normal EOM: EOMs intact bilaterally Chest Chest palpation & inspection: normal inspection of the chest Resp Other: rhonchi throughout Effort & Inspection: normal respiratory effort, able to speak in complete sentences, no audible wheezes, Actively coughing Quality: wet, no stridor, not tachypneic, no tripod positioning and no use of accessory muscles Auscultation: rhonchi throughout, no wheezes and diminished lung sounds Cardio Rate: regular rate Rhythm: regular rhythm Skin Other: warm, dry General skin exam: no rashes or lesions noted Neuro General: patient oriented x3 Cranial nerves: Yes Normal hearing present Cognition (Neuro): normal cognition Extrem General: Yes pedal edema Psych Appearance: grossly normal and well kempt Speech and movement: Normal speech and movement present and Clear speech present Affect: normal affect Attitude: cooperative Thought process: Normal thought process present Thought content: Normal thought content present Insight: Good insight present (Psych) Judgement: Good judgement present (Psych) Office Procedures 6 Minute Walk Time:: 11:10 SPO2 % at rest: 90 Pulse at rest: 77 SPO2 % during excercise: 85 (Stopped O2 applied @2lpm cont flow, resumed ambulation with O2 @ 2lpm) Pulse during excercise: 98 6 Minute Walk (with oxygen) Time:: 11:28 SPO2 % at rest:: 96 Pulse at rest:: 92 SPO2 % during exercise:: 93 Pulse during exercise:: 89 SPO2 % after exercise: 95 Pulse after exercise:: 80 Distance in yards walked:: 100 Yoni Score:: 6 Supplemental Oxygen: Pt placed on 2 lpm O2 cont flow, O2 sat during ambulation 93%, recommend O2 cont flow at 2lpm with exertion, pt sent home with portable tank from [facility] [id number] - 6 Minute Walk Assessment & Plan Assessment & Plan (1) COPD (chronic obstructive pulmonary disease): Code(s): J44.9 - Chronic obstructive pulmonary disease, unspecified (2) Obstructive sleep apnea: Code(s): G47.33 - Obstructive sleep apnea (adult) (pediatric) (3) Requires supplemental oxygen: Code(s): Z99.81 - Dependence on supplemental oxygen Plan Izabel presents to revisit need for oxygen therapy so she can undergo EGD with Dr. Long. 6MWT performed and patient requires 2L of oxygen. Patient is agreeable to oxygen at this time. Will send her home with portable tank and send prescription to [facility]. Again attempted to educate patient on importance of CPAP therapy and risks associated with untreated sleep apnea but she refused to further discuss. Although she is agreeable to oxygen therapy, she appears to be in an acute exacerbation of right sided heart failure with >15 lb weight gain since last visit, in addition to refusal of CPAP therapy. Reviewed with Dr. Dunne and at this time, she continues to be high-risk for pulmonary perioperative complications. Coding Level of Care Code Est Pt Level 3 (13250) Diagnoses COPD (chronic obstructive pulmonary disease) J44.9 Obstructive sleep apnea G47.33 Requires supplemental oxygen Z99.81 CPT Codes Coding ([id number])
[2023-05-14 10:48] VITALS: BP 142/74; PULSE 76; RESP 18; O2SAT 92; BMI 48.6
[2023-05-14 11:32] VITALS: PULSE 77; PULSE 92; O2SAT 90; O2SAT 96
== END 2023-05-14 11:36 | disposition home or self-care (01) ==
PROVIDERS: PCP Internal Medicine; Visit Provider Nurse Practitioner Family
DX: J44.9 Chronic obstructive pulmonary disease, unspecified (principal); G47.33 Obstructive sleep apnea (adult) (pediatric); Z99.81 Dependence on supplemental oxygen
CPT/HCPCS: 94618; 99213

== ENCOUNTER → 2023-05-14 10:26 | Outpatient (BNVA) | payer MEDICARE, SELFPAY | PROVIDERS: PCP Internal Medicine; Visit Provider Nurse Practitioner Family | DX: J44.9 Chronic obstructive pulmonary disease, unspecified (principal); G47.33 Obstructive sleep apnea (adult) (pediatric); Z99.81 Dependence on supplemental oxygen | CPT/HCPCS: 94618; 99212 ==

== ENCOUNTER 2023-05-16 07:05 | Emergency (ER) | payer MEDICARE, SELFPAY ==
--- NOTE | ~2023-05-16 | XR_ITS ---
EXAMINATION: XR RIBS, RIGHT, PA CHEST CLINICAL INFORMATION: Rib pain. COMPARISON: None available. TECHNIQUE: 3 views of the right ribs were obtained along with a PA view of the chest. A skin marker overlies the lower lateral chest. FINDINGS: Mild linear markings in the lower lung tuttle. No consolidation, pneumothorax, or pleural effusion. The cardiomediastinal silhouette and pulmonary vasculature are normal. Osseous structures are unremarkable. Ribs are intact. No fractures are identified. XR/XR ribs RT min 3V w CXR1V IMPRESSION: 1. Mild bibasilar linear atelectasis versus scarring. No acute cardiopulmonary process. 2. No acute right rib fracture.
[2023-05-16 07:11] VITALS: BP 136/56; PULSE 75; RESP 22; TEMP 36.6; O2SAT 95; BMI 50.7
--- NOTE | 2023-05-16 07:49 | ECG_ITS ---
Test Reason : FALL Blood Pressure : / mmHG Vent. Rate : 065 BPM Atrial Rate : 065 BPM P-R Int : 184 ms QRS Dur : 088 ms QT Int : 448 ms P-R-T Axes : 041 -10 050 degrees QTc Int : 465 ms Normal sinus rhythm Inferior infarct , age undetermined Abnormal ECG When compared with ECG of 29-MAR-2023 15:16, QRS axis Shifted right Referred By: Alysha Mcknight Electronically Signed By:KATELYNN SHIN MD
[2023-05-16 07:50] VITALS: BP 134/71; PULSE 73; RESP 15; TEMP 37.1; O2SAT 94
--- NOTE | 2023-05-16 07:51 | ED_ITS ---
HPI - Fall General Chief Complaint: Fall Stated Complaint: r side rib inj Time Seen by Provider: 05/16/23 07:40 History of Present Illness HPI Narrative: Patient is an 83-year-old female presents today with having pain to her right chest. Patient claims she tripped over her own shoes 2 days ago. Landed on the right rib. Since since been having pain in that area. Patient has a history of COPD. Baseline is on 2 L of oxygen at home. History of sleep apnea. History of coronary artery disease. History of congestive heart failure. Denies any new shortness of breath. Denies any diaphoresis. Denies any fever chills. Denies any focal weakness. Patient from home. Related Data Home Medications Medication Instructions Recorded Confirmed allopurinol 100 mg tablet 100 mg PO DAILY 09/05/21 04/23/23 diltiazem HCl 360 mg capsule,24 360 mg PO DAILY 09/05/21 04/23/23 hr,extended release (Tiadylt ER) gemfibrozil 600 mg tablet 600 mg PO DAILY 09/05/21 04/23/23 loratadine 10 mg tablet (Claritin) 10 mg PO DAILY 09/05/21 04/23/23 meloxicam 15 mg tablet 15 mg PO DAILY 09/05/21 04/23/23 metformin 500 mg tablet,extended 500 mg PO DAILY 09/05/21 04/23/23 release 24 hr metolazone 2.5 mg tablet 2.5 mg PO Q48H 09/05/21 04/23/23 omeprazole 20 mg capsule,delayed 20 mg PO DAILY 09/05/21 04/23/23 release pravastatin 40 mg tablet 40 mg PO DAILY 09/05/21 04/23/23 guaifenesin 600 mg tablet, 1,200 mg PO Q12H 05/10/22 04/23/23 extended release 12 hr (Mucinex) oxymetazoline 0.05 % nasal spray 1 spray intranasal Q12H 05/10/22 04/23/23 (Mucinex Sinus-Max) Previous Rx's Medication Instructions Recorded dexamethasone 6 mg tablet 6 mg PO DAILY #4 tabs 05/15/22 bumetanide 2 mg tablet 2 mg PO BID #60 tabs 01/28/23 prednisone 20 mg tablet 20 mg PO BID #10 tabs 04/23/23 Allergies Allergy/AdvReac Type Severity Reaction Status Date / Time mold [MOLD] Allergy Intermediate COUGHING, Verified 05/14/23 10:48 SINUS CONGESTION Penicillins [PENICILLINS] Allergy Intermediate REVERSE Verified 05/14/23 10:48 REACTION MAKES PT FEEL WORSE Review of Systems Review of Systems: Positive right-sided chest pain Yes all other systems are reviewed and are negative [facility] Past Medical History Attestation statement: The following information was validated with the patient. Medical History Arthritis CAD (coronary artery disease) COPD (chronic obstructive pulmonary disease) Dyslipidemia Hypertension Hypertension Lymphedema Morbid obesity PVC (premature ventricular contraction) Type 2 diabetes mellitus Surgical History History of hysterectomy History of knee replacement Family History Family History Mother Coronary artery disease Social History Social History Household Members: Significant Other Housing: Apartment Do you presently have visiting nurse or other home services: No Alcohol intake: never Patient Tobacco Use Status: Never used Tobacco Smoked in Last 30 Days: No e-Cigarette/Vaping Use: Never Used Second Hand Smoke Exposure: No Use of substances other than those prescribed or required for medical reasons: No Advance Directives: No service: No Current occupational status: retired Physical Exam Vital Signs: Vital Signs: Last Vital Signs Temp 98.7 F 05/16/23 07:50 Pulse 73 05/16/23 07:50 Resp 15 05/16/23 07:50 BP 134/71 05/16/23 07:50 Pulse Ox 94 05/16/23 07:50 O2 Del Method Nasal Cannula 05/16/23 07:50 O2 Flow Rate 2 05/16/23 07:50 Oxygen Flow Rate 2 05/16/23 07:11 BMI result Body Mass Index 50.7 Appearance: Alert. Oriented X3. No acute distress. Eyes: Pupils equal, round and reactive to light. ENT: Pharynx normal. Neck: Normal inspection. Neck supple. No lymph nodes noted. No crepitus CVS: Normal heart rate and rhythm. Pulses normal. Normal S1 and S2 Respiratory: No respiratory distress. Breath sounds normal. No Wheezing. No rales Abdomen: Soft and nontender. No rigidity. No distention. good BS x4 Skin: Skin warm and dry. Normal skin color. Normal skin turgor. Extremities: 2+ pitting edema bilateral lower extremity. Neurovascular intact to all extremities. No Lacerations. No Rash Neuro: Oriented X 3. No motor deficit. No sensory deficit. Moving all extermities. No slurred speech Medical Decision Making Medical Decision Making [facility] Narrative: Patient presents today with having right-sided rib pain after a fall. No pain prior. Patient baseline is on 2 L of oxygen. While on 2 L of oxygen patient maintaining an O2 sat of 94% which is normal for her. She ambulates without any difficulties. Her hemoglobin is baseline. Her kidney function is baseline. Her chest x-ray showed no acute fracture no pneumonia no pneumothorax. Will discharge patient home Tylenol for pain close follow-up on an outpatient basis. Explained to patient risk of rib fracture still exist. In stable condition. Differential Diagnosis Differential Diagnoses: The differential diagnosis associated with the presentation includes Rib fracture, contusion, pneumonia Lab Data [facility] Lab Attestation statement: I reviewed the patient's lab results. 05/16/23 08:11 05/16/23 08:11 Labs: Lab Results 05/16/23 05/16/23 Range/Units 08:11 08:11 WBC 6.8 (4.8-10.8) X10*3/uL RBC 4.32 (4.20-5.50) X10*6/uL Hgb 13.5 (12.0-16.0) g/dl Hct 42.2 (37.0-47.0) % MCV 97.7 (80.0-98.0) fL MCH 31.3 (27.0-33.0) pg MCHC 32.0 (31.0-35.0) g/dl RDW 14.4 (11.0-16.0) % Plt Count 171 D (160-400) X10*3/uL MPV 11.2 (9.4-12.3) fL Immature Gran % (Auto) 0.3 (0.0-0.4) % Neut % (Auto) 75.0 H (45-73) % Lymph % (Auto) 14.1 L (20-40) % [place] % (Auto) 8.1 (2-11) % Eos % (Auto) 2.2 (0-4) % Baso % (Auto) 0.3 (0-2) % Lymph # (Auto) 1.0 L (1.2-4.9) X10*3/uL [place] # (Auto) 0.6 (0.1-1.2) X10*3/uL Eos # (Auto) 0.2 (0.0-0.4) X10*3/uL Baso # (Auto) 0.0 (0.0-0.2) X10*3/uL Abs Immat Gran (auto) 0.02 (0.00-0.03) X10*3/uL Absolute Neuts (auto) 5.1 (2.0-8.3) x10*3/uL Absolute Nucleated RBC 0.000 (0.0-0.012) X10*3/uL Nucleated RBC % (auto) 0.0 (0.0-0.2) /100WBC Smear Tech's Comments VERIFIED Sodium 143 (135-145) mmol/L Potassium 3.4 (3.3-5.1) mmol/L Chloride 106 (96-108) mmol/L Carbon Dioxide 26 (22-29) mmol/L Anion Gap 14 (12-20) BUN 10 (9-16) mg/dL Creatinine 0.72 (0.5-1.4) mg/dL Estim Creat Clear Calc 83.6 Estimated GFR > 60 Random Glucose 102 (60-115) mg/dL Calcium 9.4 (8.4-10.2) mg/dL Independent Interpretation I performed an independent interpretation of an: EKG and Plain X-Ray Interpretation: My interpretation of patient's EKG showed a sinus rhythm heart rate is 65 MN QRS QT within normal limits there is no acute ST segment elevation noted. Patient's chest x-ray was grossly negative for any acute evidence of pneumonia pneumothorax Radiology Impression Discussion of test interpretation with radiology: I have reviewed the radiologist's reading. Discharge Plan Discharge Clinical Impression: Contusion, Fracture of rib Prescriptions: No Action bumetanide 2 mg tablet 2 mg PO BID Qty: 60 2RF metolazone 2.5 mg tablet 2.5 mg PO Q48H pravastatin 40 mg tablet 40 mg PO DAILY meloxicam 15 mg tablet 15 mg PO DAILY diltiazem HCl [Tiadylt ER] 360 mg capsule,extended release 24 hr 360 mg PO DAILY allopurinol 100 mg tablet 100 mg PO DAILY gemfibrozil 600 mg tablet 600 mg PO DAILY omeprazole 20 mg capsule,delayed release(DR/EC) 20 mg PO DAILY metformin 500 mg tablet extended release 24 hr 500 mg PO DAILY loratadine [Claritin] 10 mg Tablet 10 mg PO DAILY oxymetazoline [Mucinex Sinus-Max] 0.05 % [place],Non-Aerosol 1 spray INTRANASAL Q12H guaifenesin [Mucinex] 600 mg Tablet Extended Release 12hr 1,200 mg PO Q12H dexamethasone 6 mg tablet 6 mg PO DAILY Qty: 4 0RF prednisone 20 mg tablet 20 mg PO BID Qty: 10 0RF
[2023-05-16 08:21] LABS: Basophils Percent Auto 0.3 % (0-2); Eosinophils Absolute Auto 0.2 X10*3/uL (0.0-0.4); Eosinophils Percent Auto 2.2 % (0-4); Hematocrit 42.2 % (37.0-47.0); Hemoglobin 13.5 g/dl (12.0-16.0); Imm Gran Abs Auto 0.02 X10*3/uL (0.00-0.03); Imm Gran Pct Auto 0.3 % (0.0-0.4); Lymphocytes Percent Auto 14.1 % (20-40); MANUAL DIFF FLAG SCAN; Mean Corpuscular Hemoglobin 31.3 pg (27.0-33.0); Mean Corpuscular Volume 97.7 fL (80.0-98.0); Mean Platelet Volume 11.2 fL (9.4-12.3); Monocytes Absolute Auto 0.6 X10*3/uL (0.1-1.2); Monocytes Percent Auto 8.1 % (2-11); Neutrophils Absolute Auto 5.1 x10*3/uL (2.0-8.3); PLT CLUMP 1; Red Blood Count 4.32 X10*6/uL (4.20-5.50); Red Cell Distribution Width 14.4 % (11.0-16.0); SCAN SMEAR FLAG 1
--- NOTE | 2023-05-16 08:23 | PC.NURSE ---
pt a&ox3, respirations equal and unlabored, upper bilateral lobe rhonchi, pt baseline at 2L. pt reports falling at a pulmonary appointment, pt tripped on shoe and fell up to her neck while walking. pt reports 10/10 pain on her right side of ribs under her breast. no bruising noted. pt places her own patch where the pain is. vss.
[2023-05-16 08:37] LABS: Anion Gap 14 (12-20); Blood Urea Nitrogen 10 mg/dL (9-16); Calcium 9.4 mg/dL (8.4-10.2); Carbon Dioxide 26 mmol/L (22-29); Chloride 106 mmol/L (96-108); Creatinine Clr Calc Pharmacy 83.6; Estimated Glomerular Filt Rate > 60; Glucose Random 102 mg/dL (60-115); Potassium 3.4 mmol/L (3.3-5.1); Sodium 143 mmol/L (135-145)
[2023-05-16 09:06] LABS: Platelet Count 171 X10*3/uL (160-400)
[2023-05-16 09:07] LABS: SLIDE REVIEW VERIFIED; White Blood Count 6.8 X10*3/uL (4.8-10.8)
== END 2023-05-16 11:07 | disposition home or self-care (01) ==
PROVIDERS: Emergency Provider Emergency Medicine Emergency Medical Services; PCP Internal Medicine
DX: S22.31XA Fracture of one rib, right side, initial encounter for closed fracture (principal); R60.0 Localized edema; R07.81 Pleurodynia; I25.10 Atherosclerotic heart disease of native coronary artery without angina pectoris; J44.9 Chronic obstructive pulmonary disease, unspecified; W01.10XA Fall on same level from slipping, tripping and stumbling with subsequent striking against unspecified object, initial encounter; Y93.9 Activity, unspecified; Y92.9 Unspecified place or not applicable; Y99.9 Unspecified external cause status; Z79.899 Other long term (current) drug therapy
CPT/HCPCS: 36415; 71101; 80048; 85025; 93005; 99283; 99284

== ENCOUNTER → 2023-05-16 07:49 | Outpatient (BNV) | payer MEDICARE, SELFPAY | PROVIDERS: Emergency Provider Emergency Medicine Emergency Medical Services; PCP Internal Medicine; Visit Provider Internal Medicine Cardiovascular Disease | DX: R94.31 Abnormal electrocardiogram [ECG] [EKG] (principal) | CPT/HCPCS: 93010 ==

== ENCOUNTER 2023-05-31 11:58 | Outpatient (REF) | payer MEDICARE, SELFPAY ==
[2023-05-31 14:03] LABS: Estimated Average Glucose 117 mg/dL; Hemoglobin A1c % 5.7 %
[2023-05-31 14:07] LABS: Alanine Aminotransferase 8 U/L (0-31); Albumin Level 3.8 g/dL (3.5-5.0); Alkaline Phosphatase 104 U/L (39-117); Anion Gap 16 (12-20); Aspartate Amino Transferase 14 U/L (5-31); Bilirubin Total 0.3 mg/dL (0.0-1.0); Blood Urea Nitrogen 12 mg/dL (9-16); Calcium 9.1 mg/dL (8.4-10.2); Carbon Dioxide 30 mmol/L (22-29); Chloride 100 mmol/L (96-108); Estimated Glomerular Filt Rate > 60; Glucose Random 95 mg/dL (60-115); Potassium 4.2 mmol/L (3.3-5.1); Sodium 142 mmol/L (135-145)
[2023-05-31 14:24] LABS: Thyroid Stimulating Hormone 1.45 uIU/mL (0.32-4.0)
[2023-05-31 14:26] LABS: B Type Natriuretic Peptide 110 pg/mL (<100)
== END 2023-05-31 11:59 | disposition home or self-care (01) ==
LOC: HO.10HDL 11:58
PROVIDERS: Visit Provider Internal Medicine
DX: D64.9 Anemia, unspecified (principal); I50.9 Heart failure, unspecified; I25.10 Atherosclerotic heart disease of native coronary artery without angina pectoris; E11.9 Type 2 diabetes mellitus without complications; J44.9 Chronic obstructive pulmonary disease, unspecified
CPT/HCPCS: 36415; 80053; 83036; 83880; 84443

== ENCOUNTER 2023-06-13 11:34 | Outpatient (REF) | payer MEDICARE, SELFPAY ==
--- NOTE | ~2023-06-13 | US_ITS ---
EXAMINATION: US VENOUS WITH DOPPLER UPPER EXTREMITY, LEFT CLINICAL INFORMATION: Left upper extremity edema COMPARISON: None available. TECHNIQUE: Ultrasound of the upper extremity is performed using compression sonography and color and pulse Doppler flow with assessment of augmentation of flow. There is also imaging and Doppler assessment of the jugular and subclavian veins. Spectral analysis with color-flow imaging is performed. FINDINGS: Respiratory variation, normal compression, and augmented flow are noted throughout the upper extremity including the axillary, brachial, cubital, and radial and ulnar veins. There is normal flow in the internal jugular and subclavian veins. There is no visible deep or superficial thrombophlebitis. If the patient's symptoms progress, a followup ultrasound in 5 -7 days might be of value to exclude proximal propagation from a nonvisualized distal arm vein. US/US venous duplex UE LT IMPRESSION: No DVT demonstrated in the left upper arm
== END 2023-06-13 11:35 | disposition home or self-care (01) ==
LOC: HO.US 11:34
PROVIDERS: PCP Internal Medicine; Visit Provider Internal Medicine
DX: R22.31 Localized swelling, mass and lump, right upper limb (principal)
CPT/HCPCS: 93971

== ENCOUNTER 2023-06-21 10:11 | Outpatient (AMB) | payer MEDICARE, SELFPAY ==
[2023-06-21 10:14] VITALS: BP 132/64; PULSE 79; O2SAT 97
--- NOTE | 2023-06-21 10:14 | MHC.OFFVIS ---
Intake Vital Signs 06/21/23 10:14 Height 5 ft 4 in BP 132/64 Blood Pressure Location Lt radial Position Sitting Pulse 79 Pulse Source Pulse Oximeter Pulse Oximetry (%) 97 Oxygen Delivery Method Nasal Cannula Oxygen Flow Rate 2 Intake Visit Reasons: o2 Certification Product Marketer Required: No Accompanied by: Spouse Allergies mold [MOLD] Allergy (Intermediate, Verified 06/21/23 10:25) COUGHING, SINUS CONGESTION Penicillins [PENICILLINS] Allergy (Intermediate, Verified 06/21/23 10:25) REVERSE REACTION MAKES PT FEEL WORSE Medication List - Last Reconciled 06/21/23 by Julita Stearns LPN allopurinol 100 mg PO DAILY bumetanide 2 mg PO BID dexamethasone 6 mg PO DAILY diltiazem HCl ER (Tiadylt ER) 360 mg PO DAILY gemfibrozil 600 mg PO DAILY guaifenesin ER (Mucinex) 1,200 mg PO Q12H loratadine (Claritin) 10 mg PO DAILY meloxicam 15 mg PO DAILY metformin ER 500 mg PO DAILY metolazone 2.5 mg PO Q48H omeprazole 20 mg PO DAILY oxymetazoline 0.05% (Mucinex Sinus-Max) 1 spray intranasal Q12H pravastatin 40 mg PO DAILY prednisone 20 mg PO BID HPI o2 Certification HPI Details Izabel is an 83 year old female, never smoker, with underlying history of COPD, MAGAN refuses CPAP therapy, right sided heart failure followed by cardiology on diuretics and morbid obesity. She is in a wheelchair and accompanied by her . At baseline she reports moderate control of symptoms on current regimen of nebulized therapy prescribed by PCP and intermittent use of incentive spirometer. She continues to report productive cough with yellow sputum and moderate dyspnea on minimal exertion. She has been using supplemental oxygen 2L NC continuously since our last visit. [facility] Medical History Arthritis CAD (coronary artery disease) COPD (chronic obstructive pulmonary disease) Dyslipidemia Hypertension Hypertension Lymphedema Morbid obesity PVC (premature ventricular contraction) Type 2 diabetes mellitus Surgical History History of hysterectomy History of knee replacement Family History Mother Coronary artery disease Social History (Updated 06/21/23 @ 10:28 by Julita Stearns LPN) Household Members: Significant Other Housing: Apartment Do you presently have visiting nurse or other home services: No Alcohol intake: never Patient Tobacco Use Status: Never used Tobacco Smoked in Last 30 Days: No e-Cigarette/Vaping Use: Never Used Second Hand Smoke Exposure: No service: No Current occupational status: retired Review of Systems Const Denies chills, Denies excessive sweating, Denies fever(s), Denies headache(s) and Denies night sweats Eyes Denies dry eyes, Denies irritation and Denies itchy eyes ENT Reports Normal hearing present and Denies headache(s) Card Denies chest pain, Denies chest pain at rest, Denies chest pain with activity, Reports dyspnea, Reports dyspnea on exertion and Reports orthopnea Resp Denies change in phlegm color, Reports chest congestion, Reports cough, Denies hemoptysis, Denies excessive phlegm production, Denies pain on inspiration, Denies pain with cough, Reports dyspnea, Reports dyspnea on exertion and Denies stridor Musc Denies myalgias Neuro Reports Normal hearing present and Denies headache(s) Endo Denies excessive sweating Matthias/Lymph Denies lymphadenopathy Aller/Immun Denies itchy eyes and Denies seasonal rhinorrhea Physical Exam Vital Signs: Last Vital Signs Pulse 79 06/21/23 10:14 BP 132/64 06/21/23 10:14 Pulse Ox 97 06/21/23 10:14 Oxygen Delivery Method Nasal Cannula 06/21/23 10:14 Oxygen Flow Rate 2 06/21/23 10:14 Const General: cooperative, comfortable, no acute distress and alert Nutritional Appearance: obese Orientation/consciousness: patient oriented x3 HEENT Head: Yes normal to inspection, Yes normocephalic and Yes atraumatic Ears: hearing grossly normal bilaterally and external ears normal Eyes Eyelids: Yes eyelids normal Sclerae: sclerae normal EOM: EOMs intact bilaterally Chest Chest palpation & inspection: normal inspection of the chest Resp Other: rhonchi throughout Effort & Inspection: normal respiratory effort, able to speak in complete sentences, no audible wheezes, Actively coughing Quality: wet, no stridor, not tachypneic, no tripod positioning and no use of accessory muscles Auscultation: rhonchi throughout, no wheezes and diminished lung sounds Cardio Rate: regular rate Rhythm: regular rhythm Skin Other: warm, dry General skin exam: no rashes or lesions noted Neuro General: patient oriented x3 Cranial nerves: Yes Normal hearing present Cognition (Neuro): normal cognition Extrem General: Yes pedal edema Psych Appearance: grossly normal and well kempt Speech and movement: Normal speech and movement present and Clear speech present Affect: normal affect Attitude: cooperative Thought process: Normal thought process present Thought content: Normal thought content present Insight: Good insight present (Psych) Judgement: Good judgement present (Psych) Assessment & Plan Assessment & Plan (1) COPD (chronic obstructive pulmonary disease): Code(s): J44.9 - Chronic obstructive pulmonary disease, unspecified (2) Obstructive sleep apnea: Code(s): G47.33 - Obstructive sleep apnea (adult) (pediatric) (3) Requires supplemental oxygen: Code(s): Z99.81 - Dependence on supplemental oxygen Plan Since the last visit Izabel has been reportedly compliant using supplemental oxygen and nebulized therapies. Her work of breathing seems mildly improved. Encouraged patient to use duoneb BID-TID and practice deep breathing/coughing exercises. On exam she had rhonchi throughout and reports a productive cough with yellow sputum. Will treat bronchitic symptoms with doxycycline. Reviewed side effects. Also, patient appears to be retaining more fluid compared to last visit, with increased BLE edema as well as orbital edema. Discussed importance of compliance with duiretics. Advised patient to reach out to cardiology as she may need additional diuretics. Will follow up in two weeks to reassess. Medications: New doxycycline hyclate 100 mg PO BID 20 caps 0RF Coding Level of Care Code Est Pt Level 4 (00460) Diagnoses COPD (chronic obstructive pulmonary disease) J44.9 Obstructive sleep apnea G47.33 Requires supplemental oxygen Z99.81
== END 2023-06-21 11:31 | disposition home or self-care (01) ==
PROVIDERS: PCP Internal Medicine; Visit Provider Nurse Practitioner Family
DX: J44.9 Chronic obstructive pulmonary disease, unspecified (principal); G47.33 Obstructive sleep apnea (adult) (pediatric); Z99.81 Dependence on supplemental oxygen
CPT/HCPCS: 99214

== ENCOUNTER → 2023-06-21 10:11 | Outpatient (BNVA) | payer MEDICARE, SELFPAY | PROVIDERS: PCP Internal Medicine; Visit Provider Nurse Practitioner Family | DX: J44.9 Chronic obstructive pulmonary disease, unspecified (principal); G47.33 Obstructive sleep apnea (adult) (pediatric); Z99.81 Dependence on supplemental oxygen | CPT/HCPCS: 99212 ==

== ENCOUNTER 2023-07-10 | Outpatient (REF) | payer MEDICARE, SELFPAY | END 2023-07-10 00:01 | disposition home or self-care (01) | LOC: CF | PROVIDERS: Visit Provider Nurse Practitioner Family | DX: J44.9 Chronic obstructive pulmonary disease, unspecified (principal); R06.02 Shortness of breath; I50.810 Right heart failure, unspecified; G47.33 Obstructive sleep apnea (adult) (pediatric); E66.01 Morbid (severe) obesity due to excess calories; G47.34 Idiopathic sleep related nonobstructive alveolar hypoventilation; Z99.81 Dependence on supplemental oxygen; Z79.899 Other long term (current) drug therapy | CPT/HCPCS: 99212 ==

== ENCOUNTER 2023-07-10 09:25 | Outpatient (AMB) | payer MEDICARE, SELFPAY ==
--- NOTE | 2023-07-10 09:27 | MHC.OFFVIS ---
Intake Vital Signs 07/10/23 09:32 BP 130/72 Blood Pressure Location Lt radial Position Sitting Pulse 71 Pulse Source Pulse Oximeter Pulse Oximetry (%) 96 Oxygen Delivery Method Nasal Cannula Intake Visit Reasons: fuv SOB Seasonal Driver Required: No Delinquency Counselor: Delinquency Counselor offered & declined Accompanied by: Spouse Allergies mold [MOLD] Allergy (Intermediate, Verified 07/10/23 09:36) COUGHING, SINUS CONGESTION Penicillins [PENICILLINS] Allergy (Intermediate, Verified 07/10/23 09:36) REVERSE REACTION MAKES PT FEEL WORSE Medication List - Last Reconciled 07/10/23 by Julita Stearns LPN allopurinol 100 mg PO DAILY bumetanide 2 mg PO BID diltiazem HCl ER (Tiadylt ER) 360 mg PO DAILY gemfibrozil 600 mg PO DAILY guaifenesin ER (Mucinex) 1,200 mg PO Q12H loratadine (Claritin) 10 mg PO DAILY metformin ER 250 mg PO DAILY metolazone 2.5 mg PO Q48H omeprazole 20 mg PO DAILY oxymetazoline 0.05% (Mucinex Sinus-Max) 1 spray intranasal Q12H pravastatin 40 mg PO DAILY HPI fuv SOB HPI Details Izabel is an 83 year old female, never smoker, with underlying history of COPD, MAGAN refuses CPAP therapy, right sided heart failure followed by cardiology on diuretics and morbid obesity. She is ambulating unassiated and accompanied by her . At baseline she reports moderate control of symptoms on current regimen and at the last visit was prescribed doxycycline with minimal improvements in bronchitic symptoms. She continues to report productive cough with yellow sputum and moderate dyspnea on minimal exertion. She has been using supplemental oxygen 2L NC continuously since our last visit. She also reports increasing swelling of extremities despite being on diuretics. [facility] Medical History Arthritis CAD (coronary artery disease) COPD (chronic obstructive pulmonary disease) Dyslipidemia Hypertension Hypertension Lymphedema Morbid obesity PVC (premature ventricular contraction) Type 2 diabetes mellitus Surgical History History of hysterectomy History of knee replacement Family History Mother Coronary artery disease Social History (Updated 06/21/23 @ 10:28 by Julita Stearns LPN) Household Members: Significant Other Housing: Apartment Do you presently have visiting nurse or other home services: No Alcohol intake: never Patient Tobacco Use Status: Never used Tobacco e-Cigarette/Vaping Use: Never Used Second Hand Smoke Exposure: No service: No Current occupational status: retired Review of Systems Const Denies chills, Denies excessive sweating, Denies fever(s), Denies headache(s) and Denies night sweats Eyes Denies dry eyes, Denies irritation and Denies itchy eyes ENT Reports Normal hearing present and Denies headache(s) Card Denies chest pain, Denies chest pain at rest, Denies chest pain with activity, Reports dyspnea, Reports dyspnea on exertion and Reports orthopnea Resp Denies change in phlegm color, Reports chest congestion, Reports cough, Denies hemoptysis, Denies excessive phlegm production, Denies pain on inspiration, Denies pain with cough, Reports dyspnea, Reports dyspnea on exertion and Denies stridor Musc Denies myalgias Neuro Reports Normal hearing present and Denies headache(s) Endo Denies excessive sweating Matthias/Lymph Denies lymphadenopathy Aller/Immun Denies itchy eyes and Denies seasonal rhinorrhea Physical Exam Vital Signs: Last Vital Signs Pulse 71 07/10/23 09:32 BP 130/72 07/10/23 09:32 Pulse Ox 96 07/10/23 09:32 Oxygen Delivery Method Nasal Cannula 07/10/23 09:32 Const General: cooperative, comfortable, no acute distress and alert Nutritional Appearance: obese Orientation/consciousness: patient oriented x3 HEENT Head: Yes normal to inspection, Yes normocephalic and Yes atraumatic Ears: hearing grossly normal bilaterally and external ears normal Eyes Eyelids: Yes eyelids normal Sclerae: sclerae normal EOM: EOMs intact bilaterally Chest Chest palpation & inspection: normal inspection of the chest Resp Other: rhonchi throughout slightly improved from prior visit, faint expiratory wheezes Effort & Inspection: normal respiratory effort, able to speak in complete sentences, no audible wheezes, Actively coughing Quality: wet, no stridor, not tachypneic, no tripod positioning and no use of accessory muscles Auscultation: rhonchi throughout and diminished lung sounds Cardio Rate: regular rate Rhythm: regular rhythm Skin Other: warm, dry General skin exam: no rashes or lesions noted Neuro General: patient oriented x3 Cranial nerves: Yes Normal hearing present Cognition (Neuro): normal cognition Extrem General: Yes pedal edema Psych Appearance: grossly normal and well kempt Speech and movement: Normal speech and movement present and Clear speech present Affect: normal affect Attitude: cooperative Thought process: Normal thought process present Thought content: Normal thought content present Insight: Good insight present (Psych) Judgement: Good judgement present (Psych) Assessment & Plan Assessment & Plan (1) COPD (chronic obstructive pulmonary disease): Code(s): J44.9 - Chronic obstructive pulmonary disease, unspecified (2) Obstructive sleep apnea: Code(s): G47.33 - Obstructive sleep apnea (adult) (pediatric) (3) Requires supplemental oxygen: Code(s): Z99.81 - Dependence on supplemental oxygen (4) Nocturnal hypoxemia: Code(s): G47.34 - Idiopathic sleep related nonobstructive alveolar hypoventilation (5) Right heart failure: Code(s): I50.810 - Right heart failure, unspecified Plan Izabel reports using supplemental oxygen and nebulized therapies with moderate control of symptoms. Her work of breathing seems moderately improved and she is ambulating unassisted. On exam less rhonchi is appreciated but patient still with productive cough and yellow sputum with faint expiratory wheezes. Will send in vantin and prednisone. Again, patient appears to be retaining more fluid, with significant BLE edema. Discussed importance of compliance with diuretic and reviewed fluid intake. Repeated importance of following up with cardiology. Will also follow up on order for overnight oximetry which was placed in May. Will follow up in two weeks to reassess. Medications: New cefpodoxime must administer with a meal/food 200 mg PO BID 14 tabs 0RF prednisone 40 mg (2 x 20 mg) PO DAILY 10 tabs 0RF Coding Level of Care Code Est Pt Level 4 (62894) Diagnoses COPD (chronic obstructive pulmonary disease) J44.9 Obstructive sleep apnea G47.33 Requires supplemental oxygen Z99.81 Nocturnal hypoxemia G47.34 Right heart failure I50.810
[2023-07-10 09:32] VITALS: BP 130/72; PULSE 71; O2SAT 96
== END 2023-07-10 10:07 | disposition home or self-care (01) ==
LOC: HO.HPSW 09:26
PROVIDERS: PCP Internal Medicine; Visit Provider Nurse Practitioner Family
DX: J44.9 Chronic obstructive pulmonary disease, unspecified (principal); G47.33 Obstructive sleep apnea (adult) (pediatric); Z99.81 Dependence on supplemental oxygen; G47.34 Idiopathic sleep related nonobstructive alveolar hypoventilation; I50.810 Right heart failure, unspecified
CPT/HCPCS: 99212; 99214

== ENCOUNTER 2023-07-17 13:00 | Outpatient (REF) | payer MEDICARE, SELFPAY ==
--- NOTE | ~2023-07-17 | XR_ITS ---
EXAMINATION: XR CHEST CLINICAL INFORMATION: Cough. The lungs are well-expanded without acute consolidation. There is subpleural COMPARISON: Chest x-ray 03/29/2023 TECHNIQUE: 2 views of the chest were obtained. FINDINGS: The lungs are well-expanded with no acute process. There is subpleural density right lower lateral chest wall question pleural thickening or peripheral nodule. Heart size is normal. Pulmonary vascularity is slightly prominent. No gross bony abnormality seen. XR/XR chest 2V IMPRESSION: 1. No acute process seen. 2. There is subpleural density right lower lateral chest wall question pleural thickening or peripheral nodule. Recommend CT chest with contrast. 3. Mild prominence of pulmonary vascularity question congestion
== END 2023-07-17 13:01 | disposition home or self-care (01) ==
LOC: HO.XRAY 13:00
PROVIDERS: PCP Internal Medicine; Visit Provider Nurse Practitioner Family
DX: R05.9 Cough, unspecified (principal)
CPT/HCPCS: 71046

== ENCOUNTER 2023-07-24 09:28 | Outpatient (AMB) | payer MEDICARE, SELFPAY ==
--- NOTE | 2023-07-24 09:36 | MHC.OFFVIS ---
Intake Vital Signs 07/24/23 09:37 BP 128/62 Blood Pressure Location Lt brachial Position Sitting Pulse 84 Pulse Source Pulse Oximeter Pulse Oximetry (%) 96 Oxygen Delivery Method Nasal Cannula Oxygen Flow Rate 2 Intake Visit Reasons: 2 week f/u Patient Relations Coordinator: Patient Relations Coordinator offered & declined Accompanied by: Spouse Allergies mold [MOLD] Allergy (Intermediate, Verified 07/24/23 09:40) COUGHING, SINUS CONGESTION Penicillins [PENICILLINS] Allergy (Intermediate, Verified 07/24/23 09:40) REVERSE REACTION MAKES PT FEEL WORSE Medication List - Last Reconciled 07/24/23 by Julita Stearns LPN allopurinol 100 mg PO DAILY bumetanide 2 mg PO BID cefpodoxime 200 mg PO BID diltiazem HCl ER (Tiadylt ER) 360 mg PO DAILY gemfibrozil 600 mg PO DAILY guaifenesin ER (Mucinex) 1,200 mg PO Q12H levofloxacin 750 mg PO DAILY loratadine (Claritin) 10 mg PO DAILY metformin ER 250 mg PO DAILY metolazone 2.5 mg PO Q48H omeprazole 20 mg PO DAILY oxymetazoline 0.05% (Mucinex Sinus-Max) 1 spray intranasal Q12H pravastatin 40 mg PO DAILY prednisone 40 mg (2 x 20 mg) PO DAILY HPI 2 week f/u HPI Details Izabel is an 83 year old female, never smoker, with underlying history of COPD, MAGAN refuses CPAP therapy, right sided heart failure followed by cardiology on diuretics and morbid obesity. She is ambulating unassisted and accompanied by her . At baseline she reports moderate control of symptoms on current regimen and at the last visit was prescribed levaquin with minimal improvements in bronchitic symptoms. She continues to report productive cough with brown sputum and moderate dyspnea on minimal exertion. She has been using supplemental oxygen 2L NC continuously since our last visit. She did report a change in diuretics from PCP, now on lasix. [facility] Medical History Arthritis CAD (coronary artery disease) COPD (chronic obstructive pulmonary disease) Dyslipidemia Hypertension Hypertension Lymphedema Morbid obesity PVC (premature ventricular contraction) Type 2 diabetes mellitus Surgical History History of hysterectomy History of knee replacement Family History Mother Coronary artery disease Social History (Updated 06/21/23 @ 10:28 by Julita Stearns LPN) Household Members: Significant Other Housing: Apartment Do you presently have visiting nurse or other home services: No Alcohol intake: never Patient Tobacco Use Status: Never used Tobacco e-Cigarette/Vaping Use: Never Used Second Hand Smoke Exposure: No service: No Current occupational status: retired Review of Systems Const Denies chills, Denies excessive sweating, Denies fever(s), Denies headache(s) and Denies night sweats Eyes Denies dry eyes, Denies irritation and Denies itchy eyes ENT Reports Normal hearing present and Denies headache(s) Card Denies chest pain, Denies chest pain at rest, Denies chest pain with activity, Reports dyspnea, Reports dyspnea on exertion and Reports orthopnea Resp Denies change in phlegm color, Reports chest congestion, Reports cough, Denies hemoptysis, Denies excessive phlegm production, Denies pain on inspiration, Denies pain with cough, Reports dyspnea, Reports dyspnea on exertion and Denies stridor Musc Denies myalgias Neuro Reports Normal hearing present and Denies headache(s) Endo Denies excessive sweating Matthias/Lymph Denies lymphadenopathy Aller/Immun Denies itchy eyes and Denies seasonal rhinorrhea Physical Exam Vital Signs: Last Vital Signs Pulse 84 07/24/23 09:37 BP 128/62 07/24/23 09:37 Pulse Ox 96 07/24/23 09:37 Oxygen Delivery Method Nasal Cannula 07/24/23 09:37 Oxygen Flow Rate 2 07/24/23 09:37 Const General: cooperative, comfortable, no acute distress and alert Nutritional Appearance: obese Orientation/consciousness: patient oriented x3 HEENT Head: Yes normal to inspection, Yes normocephalic and Yes atraumatic Ears: hearing grossly normal bilaterally and external ears normal Eyes Periorbital: periorbital findings abnormal bilateral Eyelids: Yes eyelid abnormality Sclerae: sclerae normal EOM: EOMs intact bilaterally Chest Chest palpation & inspection: normal inspection of the chest Resp Effort & Inspection: normal respiratory effort, able to speak in complete sentences, no audible wheezes, Actively coughing Quality: wet, no stridor, not tachypneic, no tripod positioning and no use of accessory muscles Auscultation: no crackles, rhonchi throughout, no wheezes and diminished lung sounds Cardio Rate: regular rate Rhythm: regular rhythm Skin Other: warm, dry Neuro General: patient oriented x3 Cranial nerves: Yes Normal hearing present Cognition (Neuro): normal cognition Extrem General: Yes pedal edema Psych Appearance: grossly normal and well kempt Speech and movement: Normal speech and movement present and Clear speech present Affect: normal affect Attitude: cooperative Thought process: Normal thought process present Thought content: Normal thought content present Insight: Good insight present (Psych) Judgement: Good judgement present (Psych) Office Procedures Nebulizer Treatment Nebulizer Treatment [id number]/MDI RX initial, or Nebulizer Subsequent Treatment Office Meds sodium chloride 3 % for nebulization Performing Provider: Aida Quinn NP Performing Location: [facility] [place] Pulmonology Services-[facility] Administered by: Julita Stearns LPN on 07/24/23 10:27 Dose Route Admin Location Dispensed Lot Number Expiration Date [facility] Shotblaster 3 mL inhalation 3 mL [id number] 09/03/24 [id number] MYLAN Results Reviewed Results Reviewed: [address] [address] XRay Report Signed Patient: Izabel Edwards MR#: [id number] : 1940 Acct:[id number] Age/Sex: 83 / F ADM Date: 07/17/23 Loc: [facility] Attending Dr: Aida Quinn NP Ordering Physician: Aida Quinn NP Date of Service: 07/17/23 Procedure(s): XR chest 2V Accession Number(s): [id number] cc: Jovanny Carter MD; Aida Quinn NP~ EXAMINATION: XR CHEST CLINICAL INFORMATION: Cough. The lungs are well-expanded without acute consolidation. There is subpleural COMPARISON: Chest x-ray 03/29/2023 TECHNIQUE: 2 views of the chest were obtained. FINDINGS: The lungs are well-expanded with no acute process. There is subpleural density right lower lateral chest wall question pleural thickening or peripheral nodule. Heart size is normal. Pulmonary vascularity is slightly prominent. No gross bony abnormality seen. XR/XR chest 2V IMPRESSION: 1. No acute process seen. 2. There is subpleural density right lower lateral chest wall question pleural thickening or peripheral nodule. Recommend CT chest with contrast. 3. Mild prominence of pulmonary vascularity question congestion Dictated By: Aaron Hamlin MD Signed By: <Electronically signed by Aaron Hamlin MD in OV> Assessment & Plan Assessment & Plan (1) COPD (chronic obstructive pulmonary disease): Code(s): J44.9 - Chronic obstructive pulmonary disease, unspecified (2) Obstructive sleep apnea: Code(s): G47.33 - Obstructive sleep apnea (adult) (pediatric) (3) Requires supplemental oxygen: Code(s): Z99.81 - Dependence on supplemental oxygen (4) Nocturnal hypoxemia: Code(s): G47.34 - Idiopathic sleep related nonobstructive alveolar hypoventilation (5) Right heart failure: Code(s): I50.810 - Right heart failure, unspecified (6) Abnormal chest xray: Code(s): R93.89 - Abnormal findings on diagnostic imaging of other specified body structures Plan Izabel was seen on 07/10/23 with productive cough and yellow sputum after a week on Vantin, her medication was changed to Levaquin due to increased mucous production with brown sputum. Today she presents for close follow up with minimal change in symptoms and continues to report brown sputum, with coarse rhonchi throughout. CXR was negative for any acute process. Recommendation for chest CT with contrast as there was a subpleural density of the right lower lateral chest wall question pleural thickening vs peripheral nodule. Discussed with patient and she would like to proceed with CT. Since patient with continued symptoms despite multiple antibiotics, will send for sputum culture. She was able to produce in office after nebulized hypertonic saline, tolerated well. We discussed the possibility of oral contamination. If this is the case, will send home with sputum cup versus bronchoscopy. Reviewed with Dr. Dunne. Will discuss with patient once sample is resulted. All questions were answered and patient is in agreement of plan. Orders: Orders Sputum Cult + Gram stain 07/24/23 J40 - Bronchitis, not specified as acute or chronic CT chest w IV con Today R93.89 - Abnormal findings on diagnostic imaging of other specified body structures AMB Nebulizer Treatment 07/24/23 J44.9 - Chronic obstructive pulmonary disease, unspecified Blood Urea Nitrogen Today Z01.818 - Encounter for other preprocedural examination Creatinine Today Z01.818 - Encounter for other preprocedural examination Coding Level of Care Code Est Pt Level 4 (90497) Diagnoses COPD (chronic obstructive pulmonary disease) J44.9 Obstructive sleep apnea G47.33 Requires supplemental oxygen Z99.81 Nocturnal hypoxemia G47.34 Right heart failure I50.810 Abnormal chest xray R93.89 CPT Codes Nebulizer Treatment - Nebulizer Treatment, initial or subsequent: [id number]/MDI RX initial, or Nebulizer Subsequent Treatment ([id number])
[2023-07-24 09:37] VITALS: BP 128/62; PULSE 84; O2SAT 96
== END 2023-07-24 10:39 | disposition home or self-care (01) ==
LOC: HO.HPSW 09:28
PROVIDERS: PCP Internal Medicine; Visit Provider Nurse Practitioner Family
DX: J44.9 Chronic obstructive pulmonary disease, unspecified (principal)
CPT/HCPCS: 99212; 99214

== ENCOUNTER 2023-07-24 14:25 | Outpatient (REF) | payer MEDICARE, SELFPAY | END 2023-07-24 14:26 | disposition home or self-care (01) | LOC: HO.LNP 14:25 | PROVIDERS: Visit Provider Nurse Practitioner Family | DX: J40 Bronchitis, not specified as acute or chronic (principal) | CPT/HCPCS: 87070; 87205; 94640; 99212 ==

== ENCOUNTER 2023-07-30 15:14 | Outpatient (REF) | payer MEDICARE, SELFPAY | END 2023-07-30 15:15 | disposition home or self-care (01) | LOC: HO.LNP 15:14 | PROVIDERS: Visit Provider Nurse Practitioner Family | DX: J40 Bronchitis, not specified as acute or chronic (principal) | CPT/HCPCS: 87070; 87205 ==

== ENCOUNTER 2023-08-08 10:56 | Outpatient (REF) | payer MEDICARE, SELFPAY ==
[2023-08-08 11:34] LABS: Blood Urea Nitrogen 14 mg/dL (9-16); Estimated Glomerular Filt Rate > 60
== END 2023-08-08 10:57 | disposition home or self-care (01) ==
LOC: HO.LAB 10:56
PROVIDERS: Visit Provider Nurse Practitioner Family
DX: Z01.818 Encounter for other preprocedural examination (principal)
CPT/HCPCS: 36415; 82565; 84520

== ENCOUNTER 2023-08-20 10:20 | Outpatient (REF) | payer MEDICARE, SELFPAY ==
--- NOTE | ~2023-08-20 | XR_ITS ---
EXAMINATION: XR CHEST CLINICAL INFORMATION: Cough. COMPARISON: None available. TECHNIQUE: 2 views of the chest were obtained. FINDINGS: The lungs are well-expanded with minimal atelectatic changes in left lung base. Heart size is borderline enlarged. Pulmonary vascularity is normal. No gross bony abnormalities seen. XR/XR chest 2V IMPRESSION: 1. Minimal atelectatic changes left lung base. 2. Borderline cardiomegaly.
== END 2023-08-20 10:21 | disposition home or self-care (01) ==
LOC: HO.XRAY 10:20
PROVIDERS: Visit Provider Nurse Practitioner Family
DX: R05.9 Cough, unspecified (principal)
CPT/HCPCS: 71046

== ENCOUNTER 2023-08-21 10:13 | Outpatient (REF) | payer MEDICARE, SELFPAY ==
--- NOTE | ~2023-08-21 | CT_ITS ---
EXAMINATION: CT CHEST WITH CONTRAST CLINICAL INFORMATION: Abnormal chest x-ray, subpleural density right lower lateral chest wall. COMPARISON: Chest x-ray 07/17/2023. CTA chest 05/10/2013. TECHNIQUE: Multidetector volumetric CT imaging of the chest was obtained after the administration of 65 mL of Omnipaque 350 intravenous contrast without immediate adverse reactions. Axial MIP volume rendering provided. Sagittal and coronal reformatted images were obtained. This CT examination was performed using dose optimization techniques as appropriate, variously including the following: *Automated exposure control *Adjustment of mA and/or kV according to patient size (this includes techniques or standardized protocols for targeted exams where dose is matched to indication/reason for exam; i.e. extremities or head) *Use of iterative reconstruction technique DLP: 187 mGy-cm FINDINGS: LUNGS: There is no lung parenchymal abnormality to correlate with the recent finding on chest x-ray. Consolidation in the posterior left upper lobe and lingula consistent with pneumonia. In retrospect with the benefit of this CT finding, there is a very subtle opacity in this location on chest x-ray from 08/20/2023. No suspicious lung nodules. MEDIASTINUM: No mediastinal adenopathy. No pericardial effusion. Moderate LAD, LCx, RCA calcium. PLEURA: There is no pleural effusion. No pleural mass or thickening. AXILLA: No axillary adenopathy. UPPER ABDOMEN: Small hypodensity in the spleen is stable from prior CT abdomen and pelvis and most likely hemangioma or cyst. Simple cyst in the left upper kidney. Simple cyst in the left lobe of liver. No follow-up imaging is recommended for these findings. OSSEOUS STRUCTURES: Calloused fracture of the anterior right fifth and sixth ribs may explain the finding on chest x-ray. Degenerative changes in the spine CT/CT chest w IV con IMPRESSION: Left upper lobe consolidation consistent with pneumonia. Recommend follow-up chest x-ray in 4-6 weeks to ensure resolution. The subpleural density right lower lateral chest wall seen on prior chest x-ray does not have a lung correlation and appears related to callused fractures of the anterior right fifth and sixth ribs. Fleischner guidelines were followed.
[2023-08-21] MEDS: iohexoL 350 MG/ML 75 ML INFUS..BTL 65 ML IV (10:53)
== END 2023-08-21 10:14 | disposition home or self-care (01) ==
LOC: HO.CT 10:13
PROVIDERS: PCP Internal Medicine; Visit Provider Nurse Practitioner Family
DX: R93.89 Abnormal findings on diagnostic imaging of other specified body structures (principal)
CPT/HCPCS: 71260; Q9967

== ENCOUNTER 2023-08-26 12:30 | Outpatient (REF) | payer MEDICARE, SELFPAY ==
[2023-08-26 13:11] LABS: MANUAL DIFF FLAG NO
[2023-08-26 13:16] LABS: Basophils Percent Auto 0.4 % (0-2); Eosinophils Absolute Auto 0.2 X10*3/uL (0.0-0.4); Eosinophils Percent Auto 2.7 % (0-4); Hematocrit 42.4 % (37.0-47.0); Hemoglobin 13.7 g/dl (12.0-16.0); Imm Gran Abs Auto 0.06 X10*3/uL (0.00-0.03); Imm Gran Pct Auto 0.7 % (0.0-0.4); Lymphocytes Absolute Auto 1.1 X10*3/uL (1.2-4.9); Lymphocytes Percent Auto 13.5 % (20-40); Mean Corpuscular HGB Conc 32.3 g/dl (31.0-35.0); Mean Corpuscular Hemoglobin 31.6 pg (27.0-33.0); Mean Corpuscular Volume 97.7 fL (80.0-98.0); Mean Platelet Volume 11.5 fL (9.4-12.3); Monocytes Absolute Auto 0.9 X10*3/uL (0.1-1.2); Monocytes Percent Auto 11.5 % (2-11); Neutrophils Absolute Auto 5.7 x10*3/uL (2.0-8.3); Neutrophils Percent Auto 71.2 % (45-73); Platelet Count 212 X10*3/uL (160-400); Red Blood Count 4.34 X10*6/uL (4.20-5.50); Red Cell Distribution Width 13.7 % (11.0-16.0)
[2023-08-26 13:25] LABS: Estimated Average Glucose 114 mg/dL; Hemoglobin A1c % 5.6 % (<6.0)
[2023-08-26 13:35] LABS: Alanine Aminotransferase 9 U/L (0-31); Alkaline Phosphatase 96 U/L (39-117); Anion Gap 13 (12-20); Aspartate Amino Transferase 14 U/L (5-31); Bilirubin Total 0.4 mg/dL (0.0-1.0); Blood Urea Nitrogen 16 mg/dL (9-16); Calcium 9.6 mg/dL (8.4-10.2); Carbon Dioxide 30 mmol/L (22-29); Chloride 105 mmol/L (96-108); Estimated Glomerular Filt Rate > 60; Glucose Random 95 mg/dL (60-115); Potassium 4.2 mmol/L (3.3-5.1); Sodium 144 mmol/L (135-145); Total Protein 7.1 g/dL (6.5-8.0)
[2023-08-26 13:54] LABS: Free T4 (Free Thyroxine) 0.88 ng/dL (0.71-1.85); Thyroid Stimulating Hormone 1.91 uIU/mL (0.32-4.0)
== END 2023-08-26 12:31 | disposition home or self-care (01) ==
LOC: HO.10HDL 12:30
PROVIDERS: Visit Provider Internal Medicine
DX: J44.9 Chronic obstructive pulmonary disease, unspecified (principal); E03.9 Hypothyroidism, unspecified; R60.0 Localized edema; E11.9 Type 2 diabetes mellitus without complications
CPT/HCPCS: 36415; 80053; 83036; 84439; 84443; 85025

== ENCOUNTER 2023-09-11 14:38 | Outpatient (REF) | payer MEDICARE, SELFPAY ==
--- NOTE | ~2023-09-11 | FL_ITS ---
EXAMINATION: Modified Barium Swallows CLINICAL INFORMATION: Dysphagia COMPARISON: None TECHNIQUE: Modified barium swallow was performed under lateral fluoroscopy with patient in standing position. Different consistency of barium was administered by the speech therapist. FINDINGS: Following oral administration of thin and nectar thick consistency barium, there is laryngeal penetration with immediate clearing up. No evidence of aspiration was seen. FLUOROSCOPY TIME: 1.03 minutes Number of Spot Images: 1 DOSE AREA PRODUCT: 926 uGy-m2 (microgray-meter squared) FL/FL barium swallow modified IMPRESSION: Laryngeal penetration with thin and nectar thick liquids. No aspiration is seen. Refer to the speech therapy report for further clarification This procedure was performed by Reji Stovall PA-C, and supervised by Dr. Braga
--- NOTE | 2023-09-12 11:37 | MHC.SL.IMP ---
Date of Plan of Treatment: 09/11/23 Onset of Symptoms/Illness: 08/08/23 Date Treatment Started: 09/11/23 Admitting Diagnosis: Dysphagia Primary Speech & Language Diagnosis: R13.10 Dysphagia Reason for Today's Visit: 92804 Modified Barium Swallow Study Pre-evaluation Dietary Consistencies: Regular Pre-evaluation Liquid Consistency: Thin Pre-evaluation Medication Administration: Whole with Liquid Medical History: Modified Barium Swallow Study Fluoroscopic Evaluation of Swallowing Function CPT Code 93057 Evaluation Year: 2022 Reason for Study: Pt reporting difficulty swallowing. Referring Physician: Aida Quinn NP Evaluating Clinician: Britany Martinez MA, CCC-TECHNICIAN'S HELPER Study Number: 1 Patient Name: Izabel Edwards Status: Outpatient, Wheelchair Age: 83 Gender: Female Medical History Medical History Arthritis CAD (coronary artery disease) COPD (chronic obstructive pulmonary disease) Dyslipidemia Hypertension Hypertension Lymphedema Morbid obesity PVC (premature ventricular contraction) Type 2 diabetes mellitus Surgical History History of hysterectomy History of knee replacement Current (pre-evaluation) Intake/Diet: Route: PO Diet Grade: Regular Liquid Consistencies: Thin Pre-Study Functional Oral Intake Scale (FOIS): 7- Total oral intake with no restrictions Pain: Episodic when eating, Right lower abdomen, rated 8 on scale 0-10 SUBJECTIVE: Pt is an 83 year old female with history of arthritis, CAD, COPD, dyslipidemia, hypertension, lymphedema, premature ventricular contraction, and diabetes. She was referred for a modified barium swallow study by Aida Quinn NP from the Pulmonology office. She has reportedly been using supplemental oxygen via [place]. Pt reports intermittent difficulty swallowing, with pain in her right lower abdomen when eating foods such as peanut butter. Pt rates pain level 8 on a scale 0-10. Oral Motor Exam Facial Symmetry: Symmetrical Mouth Occlusion: Normal Oral-Facial Teeth Characteristics: Intact/Normal Oral-Facial Smile (Lips) Description: Normal Oral-Facial Puff Cheeks Description: Normal Tongue Size: Normal Tongue Excursion Description: Normal Tongue Range of Movement Description: Normal Tongue Speed of Movement Description: Normal Tongue Strength of Movement (against opposing pressure): Normal Tongue Movement Characteristics: Normal/Absent Food and Liquid Trials: Oral Impairment: Lip Closure: 0=No labial escape Oral Impairment: Tongue Control During Bolus Hold: Did not test Oral Impairment: Bolus Preparation/Mastication: 1=Slow prolonged chewing/mashing with complete re-collection Oral Impairment: Bolus Transport/Lingual Motion: 2=Slowed tongue motion Oral Impairment: Oral Residue: 1=Trace residue lining oral structures Oral Impairment:Initiation of Pharyngeal Swallow: 1=Bolus head in valleculae Pharyngeal Impairment: Soft Palate Elevation: 0=No bolus between soft palate (SP)/pharyngeal wall (PW) Pharyngeal Impairment: Laryngeal Elevation: 1=Partial thyroid cartilage/arytenoids to epiglottic petiole movement Pharyngeal Impairment: Anterior Hyoid Excursion: 1=Partial anterior movement Pharyngeal Impairment: Epiglottic Movement: 1=Partial inversion Pharyngeal Impairment: Laryngeal Vestibular Closure:: 1=Incomplete: narrow column air/contrast in laryngeal vestibule Pharyngeal Impairment: Pharyngeal Stripping Wave: 0=Present: complete Pharyngeal Impairment: Pharyngeal Contraction: Did not test Pharyngeal Impairment: Pharyngoesophageal Segment Openin=Complete distension and complete duration: no obstruction of flow Pharyngeal Impairment: Tongue Base (TB) Retraction: 0=No contrast between tongue base and posterior pharyngeal wall Pharyngeal Impairment: Pharyngeal Residue: 1=Trace residue within or on pharyngeal structures Pharyngeal Impairment: Esophageal Clearance Upright Position: Did not test Impressions and Recommendations OBJECTIVE: Time-out: performed at 15:00 Evaluation Start: 14:30; Stop: 14:35 Viewing Planes: LATERAL ONLY Contrast: MBSImP? Standardized Protocol using commercially prepared, standardized Barium viscosities, including: Varibar? THIN LIQUID (40% w/v, <15 cps) , Varibar? NECTAR (40% w/v, <150-450 cps) , Varibar? THIN HONEY (40% w/v, <800-1800 cps) , 1/2 Shortbread Cookie (1 x1 x.25 ) MBSImP ID: [id number] MBSImP Results: Lip closure for intraoral bolus containment resulted in no labial escape. Tongue control during bolus hold could not be assessed due to logistical reasons not related to physiologic impairment. Bolus preparation and mastication resulted in slow, prolonged chewing/mashing but with complete re-collection. Bolus transport/lingual motion was with slowed tongue motion. Oral residue was a trace, lining oral structures. Initiation of the pharyngeal swallow occurred when the bolus head was in the valleculae. Soft palate elevation resulted in no bolus between the soft palate and the pharyngeal wall. Laryngeal elevation was decreased, with partial superior movement of the thyroid cartilage/partial approximation of the arytenoids to the epiglottic petiole. Anterior hyoid excursion demonstrated partial anterior movement. Epiglottic movement resulted in partial inversion. Laryngeal vestibular closure was incomplete, with a narrow column of air/contrast noted within the laryngeal vestibule at the height of the swallow. Pharyngeal stripping wave was present and complete. Pharyngeal contraction could not be determined due to logistical reasons not related to physiologic impairment. Pharyngoesophageal segment opening was completely distended for complete duration with no obstruction of bolus flow. Tongue base retraction allowed no contrast between the retracted tongue base and the posterior pharyngeal wall. Pharyngeal residue was a trace within or on pharyngeal structures. Esophageal clearance in the upright position could not be assessed due to logistical reasons not related to physiologic impairment. Oral Impairment Score: 4 (absence of score, component 2) Pharyngeal Impairment Score: 4 (absence of score, component 13) Esophageal Impairment Score: --- (absence of score, component 17) Laryngeal Penetration and Aspiration: Flash penetration was observed in today's study. [place]-thick, Thin Contrast entered the airway, remained above the vocal folds, and were ejected from the airway. ASSESSMENT: This exam was conducted by a multidisciplinary team, which included a speech pathologist, radiologist, and histotechnician. Pt was seated in a wheelchair for lateral view only. Pt trialed the following liquid and solid consistencies: thin liquid barium (5 mL, individual cup sips), nectar thick liquid barium (individual cup sips), honey thick liquid barium (individual cup sip), pureed solid (applesauce mixed with barium paste), regular solid (Catina Doone cookie coated with barium paste), whole barium pill tablet with sips of water. Pt displayed complete lip closure. Posterior lingual motion was mildly slowed. Mastication pattern was also slowed, characterized by piece meal deglutition. There was trace lingual residue with liquids and solids which cleared with subsequent swallow. Pharyngeal swallow trigger initiated at the level of the valleculae. There was no nasopharyngeal reflux. Incomplete epiglottic inversion and incomplete laryngeal vestibular closure. There were episodes of flash penetration on thin and nectar thick liquids, with a very trace amount of contrast coating the posterior surface of the epiglottis then immediately and spontaneously ejecting. No evidence of aspiration during this exam. There was trace residue on the tongue base and in the valleculae, which cleared with subsequent swallow. Pt swallowed whole barium pill tablet with sips of water. The tablet passed through the oral and pharyngeal cavities with no hang up. Liquid Intake Recommendation: Thin Liquid Intake Strategies: Small Sips Dietary Recommendations: Regular Medication Administration: Whole with Liquid Please contact the pharmacy regarding appropriate crushable or liquid drug formulations that are available whenever modified delivery is recommended. Compensatory Strategies Recommended: Sitting Upright (90 deg), Small Bites and Sips, Rate of Ingestion Change Supervision during eating and or drinking: None Needed Recommendation for Speech Therapy: NA:Typical Evaluation PLAN: Intake Recommendations: Route: PO Diet Grade: Regular Liquid Consistencies: Thin Post-Study Functional Oral Intake Scale (FOIS): 7- Total oral intake with no restrictions No evidence of aspiration during this exam. Trace residue on the tongue and in the valleculae cleared with subsequent swallows. Pt is recommended to resume unmodified diet- regular solids with thin liquids with the following strategies: take small bites/sips, chew food well, eat/drink with a slow pace, maintain upright 90 degree position when eating/drinking. MBSS results and recommendations were discussed with the pt after the exam, with pt expressing agreement with the recommended strategies and denying having any questions for TECHNICIAN'S HELPER at this time. Based on the observations made during this exam, further follow-up is not warranted. Recommend pt to continue monitoring her dysphagia. If there are any changes or worsening of symptoms, consult with MD, at which point a re-evaluation may be indicated. Pt may also benefit from G.I. consult given her reports of experiencing pain with consumption of certain foods. Therapy Recommendations: Therapy will be discontinued Clinician - Supplemental, Miscellaneous Communication: It is important to note MBSS objective studies are snapshots in time and Patient function might vary with factors such as time of day or concomitant medical conditions. For this reason, the final treatment plan for this patient should rest with their medical care team. Additional recommendations should be considered with the totality of the Patient in mind. Thank for the opportunity to participate in the care of this patient. If you have any questions about the content of this report, please contact the [facility] at [facility]. Education: Education regarding findings from today's study and plans for therapy were provided to Patient only through Verbal Instruction. Understanding was expressed by the Patient only. Geotechnical Engineer Clinician/Clinical Fellow: No Supervisory Statement: N/A Speech Language Pathologist: Britany Martinez M.A., CCC-TECHNICIAN'S HELPER
== END 2023-09-11 14:39 | disposition home or self-care (01) ==
LOC: HO.XRAY 14:38
PROVIDERS: PCP Internal Medicine; Visit Provider Nurse Practitioner Family
DX: R13.10 Dysphagia, unspecified (principal)
CPT/HCPCS: 74230; 92611

== ENCOUNTER → 2023-09-11 14:41 | Outpatient (BNV) | payer MEDICARE, SELFPAY | PROVIDERS: PCP Internal Medicine; Visit Provider Radiology Diagnostic Radiology | DX: R13.10 Dysphagia, unspecified (principal) | CPT/HCPCS: 74230 ==

== ENCOUNTER 2023-09-12 07:47 | Day surgery (SDC) | payer MEDICARE, SELFPAY ==
--- NOTE | 2023-09-11 13:30 | P.CONAN_ITS ---
HPI - Anesthesia Eval Consult details Narrative: 83yo F for Bronchoscopy Fiberoptic [place] [facility] and R side HF. Last seen 04/2023 and was cleared for GI procedure. Pulmo risk is more of a concern that cardiac PMFSH Active Problems Active Problems: All Active Problems (Updated 09/10/23 @ 08:00 by Sheri Jenkins RN) Dysphagia (Acute) Pleural thickening (Acute) Preprocedural examination (Acute) Abnormal chest xray (Acute) Cough (Acute) Nocturnal hypoxemia (Acute) Requires supplemental oxygen (Acute) Preop pulmonary/respiratory exam (Acute) Obstructive sleep apnea (Acute) Unstable angina (Acute) Abnormal nuclear stress test (Acute) Right heart failure (Acute) Acute respiratory failure with hypoxia (Acute) Back pain (Acute) Pneumonia (Acute) Back pain (Acute) CAD (coronary artery disease) (Acute) Hypertension (Acute) COPD (chronic obstructive pulmonary disease) (Acute) Past Medical History Medical History CAD (coronary artery disease) PVC (premature ventricular contraction) Morbid obesity Dyslipidemia Type 2 diabetes mellitus Lymphedema Hypertension COPD (chronic obstructive pulmonary disease) Arthritis Family History Family History Mother Coronary artery disease Surgical History Surgical History History of hysterectomy History of knee replacement Social History Social History Household Members: Significant Other Housing: Apartment Do you presently have visiting nurse or other home services: No Alcohol intake: never Patient Tobacco Use Status: Never used Tobacco e-Cigarette/Vaping Use: Never Used Second Hand Smoke Exposure: No service: No Current occupational status: retired Meds Allergies Allergy/AdvReac Type Severity Reaction Status Date / Time mold [MOLD] Allergy Intermediate COUGHING, Verified 09/12/23 08:35 SINUS CONGESTION Penicillins [PENICILLINS] Allergy Intermediate REVERSE Verified 09/12/23 08:35 REACTION MAKES PT FEEL WORSE Home Medications Medication Instructions Recorded Confirmed Last Taken Type allopurinol 100 mg tablet 100 mg PO DAILY 09/05/21 09/12/23 09/12/23 History diltiazem HCl 360 mg capsule,24 360 mg PO DAILY 09/05/21 09/12/23 09/12/23 History hr,extended release (Tiadylt ER) gemfibrozil 600 mg tablet 600 mg PO DAILY 09/05/21 09/12/23 05/10/22 History loratadine 10 mg tablet (Claritin) 10 mg PO DAILY 09/05/21 09/12/23 05/10/22 History metolazone 2.5 mg tablet 2.5 mg PO Q48H 09/05/21 09/12/23 05/10/22 History omeprazole 20 mg capsule,delayed 20 mg PO DAILY 09/05/21 09/12/23 09/12/23 History release pravastatin 40 mg tablet 40 mg PO DAILY 09/05/21 09/12/23 05/10/22 History guaifenesin 600 mg tablet, 1,200 mg PO Q12H 05/10/22 09/12/23 Unknown History extended release 12 hr (Mucinex) oxymetazoline 0.05 % nasal spray 1 spray intranasal Q12H 05/10/22 09/12/23 Unknown History (Mucinex Sinus-Max) metformin 500 mg tablet,extended 250 mg PO DAILY 07/10/23 09/12/23 Unknown History release 24 hr Exam Exam Date and Time: September 11, 2023 1330 Pertinent Lab Results Pertinent Lab Results: Laboratory Tests 08/26/23 12:40 WBC 8.0 Hgb 13.7 Hct 42.4 Plt Count 212 Sodium 144 Potassium 4.2 Chloride 105 Carbon Dioxide 30 H BUN 16 Creatinine 0.78 Narrative Narrative: Coronary CTA 03/2023 diffuse 3 vessel CAD without obstruction EKG 05/2023 Vent. Rate : 065 BPM Atrial Rate : 065 BPM P-R Int : 184 ms QRS Dur : 088 ms QT Int : 448 ms P-R-T Axes : 041 -10 050 degrees QTc Int : 465 ms Normal sinus rhythm Inferior infarct , age undetermined Abnormal ECG When compared with ECG of 29-MAR-2023 15:16, QRS axis Shifted right NM andrea perf SPECT rest & str 10/2022 Impression: 1. Myocardial perfusion imaging study shows basal anterolateral and basal lateral wall ischemia 2. Gated LVEF is 49% 3. Transient ischemic dilatation not present EKG is nondiagnostic for ischemia Assessment and Plan Assessment Anesthesia Assessment: Chart Reviewed
[2023-09-12] VITALS (7 sets, daily range): BP systolic 125–168; BP diastolic 74–91; PULSE 84–105; RESP 16–20; TEMP 36.2–36.6; O2SAT 92–99; BMI 48.6
[2023-09-12] MEDS: Lactated Ringers 1,000 ML 50 ML IVCONT (08:28)
[2023-09-12] MEDS: Albuterol Sulfate (0.083%) 2.5 MG/3 ML VIAL.NEB INHALE (08:40)
[2023-09-12 08:48] LABS: Glucose, Whole Blood 116 mg/dL (60-115)
--- NOTE | 2023-09-12 09:16 | HO.ANESPROP2 ---
FORM[facility]LY [facility] Active Problems Active Problems: All Active Problems (Updated 09/10/23 @ 08:00 by Sheri Jenkins RN) Dysphagia (Acute) Pleural thickening (Acute) Preprocedural examination (Acute) Abnormal chest xray (Acute) Cough (Acute) Nocturnal hypoxemia (Acute) Requires supplemental oxygen (Acute) Preop pulmonary/respiratory exam (Acute) Obstructive sleep apnea (Acute) Unstable angina (Acute) Abnormal nuclear stress test (Acute) Right heart failure (Acute) Acute respiratory failure with hypoxia (Acute) Back pain (Acute) Pneumonia (Acute) Back pain (Acute) CAD (coronary artery disease) (Acute) Hypertension (Acute) COPD (chronic obstructive pulmonary disease) (Acute) Past Medical History Medical History CAD (coronary artery disease) PVC (premature ventricular contraction) Morbid obesity Dyslipidemia Type 2 diabetes mellitus Lymphedema Hypertension COPD (chronic obstructive pulmonary disease) Arthritis Functional capacity: independent ambulation Family History Family History Mother Coronary artery disease Family history of problems with anesthesia: No Surgical History Surgical History History of hysterectomy History of knee replacement Social History Social History Household Members: Significant Other Housing: Apartment Do you presently have visiting nurse or other home services: No Alcohol intake: never Patient Tobacco Use Status: Never used Tobacco e-Cigarette/Vaping Use: Never Used Second Hand Smoke Exposure: No service: No Current occupational status: retired [employer] Allergies Allergy/AdvReac Type Severity Reaction Status Date / Time mold [MOLD] Allergy Intermediate COUGHING, Verified 09/12/23 08:35 SINUS CONGESTION Penicillins [PENICILLINS] Allergy Intermediate REVERSE Verified 09/12/23 08:35 REACTION MAKES PT FEEL WORSE Active Medications: Current Medications Lactated Ringer's (Lr) 1,000 mls @ 50 mls/hr IVCONT .Q20H JUDITH Last Admin: 09/12/23 08:28 Dose: 50 mls/hr Home Medications Medication Instructions Recorded Confirmed Last Taken Type allopurinol 100 mg tablet 100 mg PO DAILY 09/05/21 09/12/23 09/12/23 History diltiazem HCl 360 mg capsule,24 360 mg PO DAILY 09/05/21 09/12/23 09/12/23 History hr,extended release (Tiadylt ER) gemfibrozil 600 mg tablet 600 mg PO DAILY 09/05/21 09/12/23 05/10/22 History loratadine 10 mg tablet (Claritin) 10 mg PO DAILY 09/05/21 09/12/23 05/10/22 History metolazone 2.5 mg tablet 2.5 mg PO Q48H 09/05/21 09/12/23 05/10/22 History omeprazole 20 mg capsule,delayed 20 mg PO DAILY 09/05/21 09/12/23 09/12/23 History release pravastatin 40 mg tablet 40 mg PO DAILY 09/05/21 09/12/23 05/10/22 History guaifenesin 600 mg tablet, 1,200 mg PO Q12H 05/10/22 09/12/23 Unknown History extended release 12 hr (Mucinex) oxymetazoline 0.05 % nasal spray 1 spray intranasal Q12H 05/10/22 09/12/23 Unknown History (Mucinex Sinus-Max) metformin 500 mg tablet,extended 250 mg PO DAILY 07/10/23 09/12/23 Unknown History release 24 hr Exam Exam Date and Time: September 12, [id number] Height,Weight and Vital Signs: Height 5 ft 5 in Weight 132.449 kg Last Vital Signs Temp 97.6 F 09/12/23 08:33 Pulse 84 09/12/23 08:42 Resp 16 09/12/23 08:42 BP 168/91 H 09/12/23 08:33 Pulse Ox 95 09/12/23 08:33 O2 Del Method Nasal Cannula 09/12/23 08:33 O2 Flow Rate 2 09/12/23 08:33 Pertinent Lab Results Pertinent Lab Results: Laboratory Tests 09/12/23 08:44 POC Glucose 116 H Airway Mallampati Class: III TM Dist: >3cm Neck ROM: Full Denture: Upper Heart: RRR Lungs: CTA Assessment and Plan Assessment Anesthesia Assessment: Anesthesia Plan Discussed Final Anesthetic Review Family History of Problems with Anesthesia: No NPO: Yes ASA Class: III Final Preanesthetic Review: Meds/Allgs Chart Reviewed, Consent Obtained/Reviewed and Anes Risks/Benef Reviewed Patient Risk: Intermediate Procedure Risk: Low Anesthetic Plan Anesthetic Plan: GA Disposition: Standard PACU
--- NOTE | 2023-09-12 09:28 | MHC.SHP ---
Pre-Procedural Eval Section A Date of Service: 09/12/23 The patient is an INPATIENT: No Changes since office visit: No Cold of Flu in the past 2 weeks, No New Medical Problems and No Changes in Medication The History & Physical has been completed within 30 days and I have reviewed it.: Yes Section B Chief Complaint: Solitary pulmonary nodule Allergies: Allergies Allergy/AdvReac Type Severity Reaction Status Date / Time mold [MOLD] Allergy Intermediate COUGHING, Verified 09/12/23 08:35 SINUS CONGESTION Penicillins [PENICILLINS] Allergy Intermediate REVERSE Verified 09/12/23 08:35 REACTION MAKES PT FEEL WORSE Plan Diagnosis/Plan: Unchanged I have reviewed the history and physical and performed a pertinent physical examination on my patient. No changes have occurred unless specified. Time Spent With Patient Time: Total time managing care of this patient today ____ minutes.
--- NOTE | 2023-09-12 10:08 | PM.OP ---
Brief Operative Note Date of Service: 09/12/23 Pre-op diagnosis: Chronic cough Post-op diagnosis: same Procedure: Flexible bronchoscopy performed abuse ET tube with patient intubated for the procedure. Bronchoscope advanced through the tracheobronchial tree with visualization of thin mucus secretions in bilateral lower lobes and right middle lobe. Secretions cleared with mild inflamed bronchial mucosa noted underneath. Also bronchomalacia noted. Bronchoalveolar lavage performed in the right middle lobe with a sample sent for microbiologic testing. Patient tolerated procedure well and was return to PACU in stable condition. Surgeon: Royce Dunne MD Anesthesia: GETA Was an Last Repairer used for this Procedure?: No Estimated blood loss (mL): 0 Condition: stable Disposition: PACU
--- NOTE | 2023-09-12 10:45 | HO.POSTANES ---
Post Anesthesia Evaluation Post Anesthesia Evaluation Date of Service: 09/12/23 Vital Signs: Vital Signs Temp Pulse Resp BP Pulse Ox O2 Del Method O2 Flow Rate 09/12/23 10:29 97.2 F 97 20 125/86 99 Nasal Cannula 2 09/12/23 10:24 100 20 140/83 H 93 Nasal Cannula 2 09/12/23 10:19 103 H 20 130/85 92 Nasal Cannula 2 09/12/23 10:14 97.8 F 105 H 16 137/80 95 Nasal Cannula 2 09/12/23 08:42 84 16 09/12/23 08:33 97.6 F 94 16 168/91 H 95 Nasal Cannula 2 Anesthesia: General Endotracheal-GETA Mental Status: Awake Pain Control: Satisfactory Nausea/Vomiting: None Hydration: Adequate Anesthesia-Related Issues: No Anes. Related Issues
== END 2023-09-12 11:25 | disposition home or self-care (01) ==
PROVIDERS: PCP Internal Medicine; Visit Provider Internal Medicine Pulmonary Disease
PROC: 0BJ08ZZ Inspection of Tracheobronchial Tree, Via Natural or Artificial Opening Endoscopic (ICD-10-PCS; CPT 31622; principal; 2023-09-12 09:30)
DX: R91.1 Solitary pulmonary nodule (principal); R05.3 Chronic cough; R09.3 Abnormal sputum; J98.09 Other diseases of bronchus, not elsewhere classified; J44.9 Chronic obstructive pulmonary disease, unspecified; Z99.81 Dependence on supplemental oxygen; G47.33 Obstructive sleep apnea (adult) (pediatric); G47.34 Idiopathic sleep related nonobstructive alveolar hypoventilation; I11.0 Hypertensive heart disease with heart failure; I50.810 Right heart failure, unspecified; I25.10 Atherosclerotic heart disease of native coronary artery without angina pectoris; I49.3 Ventricular premature depolarization; E78.5 Hyperlipidemia, unspecified; E11.9 Type 2 diabetes mellitus without complications; E66.01 Morbid (severe) obesity due to excess calories; Z79.84 Long term (current) use of oral hypoglycemic drugs; Z79.899 Other long term (current) drug therapy; Z88.0 Allergy status to penicillin; Z77.120 Contact with and (suspected) exposure to mold (toxic); Z66 Do not resuscitate
CPT/HCPCS: 31624; 82947; 87070; 87077; 87102; 87106; 87116; 87205; 87206; 94640; J0171; J1100; J1200; J2250; J3010

== ENCOUNTER → 2023-09-12 07:47 | Outpatient (BNV) | payer MEDICARE, SELFPAY | PROVIDERS: PCP Internal Medicine; Visit Provider Internal Medicine Pulmonary Disease | DX: R05.3 Chronic cough (principal) | CPT/HCPCS: 31624 ==

== ENCOUNTER 2023-09-18 13:12 | Outpatient (REF) | payer MEDICARE, SELFPAY ==
--- NOTE | ~2023-09-18 | CT_ITS ---
EXAMINATION: CT ABDOMEN AND PELVIS WITHOUT CONTRAST CLINICAL INFORMATION: Abnormal findings. COMPARISON: CT abdomen and pelvis 03/29/2023. TECHNIQUE: Multidetector volumetric imaging was performed from the superior aspect of the liver through the pubic symphysis. Sagittal and coronal reformatted images were obtained on the technologist's workstation. This CT examination was performed using dose optimization techniques as appropriate, variously including the following: *Automated exposure control *Adjustment of mA and/or kV according to patient size (this includes techniques or standardized protocols for targeted exams where dose is matched to indication/reason for exam; i.e. extremities or head) *Use of iterative reconstruction technique DLP: 1194 mGy-cm FINDINGS: LUNG BASES: New patchy airspace disease in the lower lobes compared to CT chest 08/21/2023. LCx and RCA calcium. LIVER, GALLBLADDER, AND BILIARY TREE: Benign simple cyst in the left lobe of liver. No follow-up imaging is recommended. No biliary ductal dilatation. The gallbladder is unremarkable with no evidence of radiopaque gallstones, gallbladder wall thickening, or obvious pericholecystic inflammatory changes. PANCREAS: No discrete mass. No ductal dilatation. SPLEEN: The spleen appears normal on noncontrast technique. ADRENAL GLANDS: No adrenal mass. KIDNEYS AND URETERS: No nephrolithiasis or hydronephrosis. Simple cysts in the left kidney. No follow-up imaging is recommended. No hydronephrosis BLADDER: Unremarkable. GASTROINTESTINAL TRACT: Small hiatal hernia. Thickening of the antropyloric region is less pronounced than on the prior study and may have been related to gastritis. The small bowel is normal in caliber. There is colonic diverticulosis without evidence of acute diverticulitis. Siddharth mesentery is again seen without significant change from prior ABDOMINAL WALL: No discrete hernia. Right inguinal surgical clips. LYMPH NODES: No adenopathy. VASCULAR: No aortic aneurysm. Mild aortoiliac atherosclerosis. PELVIC VISCERA: Hysterectomy. OSSEOUS STRUCTURES: Moderate to severe degenerative disc disease throughout the lower thoracic and lumbar spine. CT/CT abdomen pelvis wo IV con IMPRESSION: New patchy airspace disease in the bilateral lower lobes compared to recent CT chest 08/21/2023. Findings are consistent with pneumonia. Previously seen thickening of the antropyloric region has improved and may have been related to gastritis. Colonic diverticulosis without evidence of diverticulitis. Stable sidhdarth appearance of the central mesentery. Fleischner guidelines were followed.
[2023-09-18] MEDS: Barium Sulfate Oral (Berry) 450 ML ORAL.SUSP 900 ML PO (15:30)
== END 2023-09-18 13:13 | disposition home or self-care (01) ==
LOC: HO.CT 13:12
PROVIDERS: PCP Internal Medicine; Visit Provider Internal Medicine
DX: R93.3 Abnormal findings on diagnostic imaging of other parts of digestive tract (principal)
CPT/HCPCS: 74176

== ENCOUNTER 2023-10-08 12:47 | Outpatient (AMB) | payer MEDICARE, SELFPAY ==
--- NOTE | 2023-10-08 12:58 | MHC.OFFVIS ---
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: Bagger And Stock Handler Helper Present Accompanied by: Spouse Allergies mold [MOLD] Allergy (Intermediate, Verified 09/12/23 08:35) COUGHING, SINUS CONGESTION Penicillins [PENICILLINS] Allergy (Intermediate, Verified 09/12/23 08:35) REVERSE REACTION MAKES PT FEEL WORSE Medication List - Last Reconciled 10/08/23 by Jaxson Gonzales MD allopurinol 100 mg PO DAILY bumetanide 2 mg PO BID cefpodoxime 200 mg PO BID diltiazem HCl ER (Tiadylt ER) 360 mg PO DAILY fluconazole 400 mg (2 x 200 mg) PO DAILY gemfibrozil 600 mg PO DAILY guaifenesin ER (Mucinex) 1,200 mg PO Q12H levofloxacin 750 mg PO DAILY loratadine (Claritin) 10 mg PO DAILY metformin ER 250 mg PO DAILY metolazone 2.5 mg PO Q48H omeprazole 20 mg PO DAILY oxymetazoline 0.05% (Mucinex Sinus-Max) 1 spray intranasal Q12H pravastatin 40 mg PO DAILY prednisone 40 mg (2 x 20 mg) PO DAILY HPI HPI Comments History of Present Illness Details Izabel comes for follow-up. Patient continues to have limitations with exertional shortness of breath and noted to have secondary pulmonary infection. Currently being followed by Pulmonary. Uses an is supposed to use oxygen all the time although says while doing certain routine activities such as cooking it interferes with her work. She uses Bumex twice a day along with metolazone every other day. Has had no hospitalization related to heart failure. Continues to have significant swelling of the left lower extremity related to lymphedema. No prolonged palpitation irregular heartbeat. No chest pains. [facility] Medical History CAD (coronary artery disease) PVC (premature ventricular contraction) Morbid obesity Dyslipidemia Type 2 diabetes mellitus Lymphedema Hypertension COPD (chronic obstructive pulmonary disease) Arthritis Surgical History History of hysterectomy History of knee replacement Family History Mother Coronary artery disease Social History Household Members: Significant Other Housing: Apartment Do you presently have visiting nurse or other home services: No Alcohol intake: never Patient Tobacco Use Status: Never used Tobacco e-Cigarette/Vaping Use: Never Used Second Hand Smoke Exposure: No service: No Current occupational status: retired Review of Systems Const Denies chills, Denies fatigue, Denies fever(s), Denies frequent falls, Denies weakness, Denies weight gain and Denies weight loss ENT Denies dizziness Card Denies chest pain, Denies leg edema, Denies lightheadedness, Denies palpitations, Denies dyspnea, Denies dyspnea on exertion, Denies orthopnea and Denies other (loss of consciousness) Resp Denies cough, Denies dyspnea and Denies dyspnea on exertion GI Denies hematochezia and Denies change in stool character Musc Denies abnormal gait, Denies muscle weakness, Denies numbness, Denies radiating pain into limb and Denies tingling Neuro Denies Abnormal speech present, Denies abnormal gait, Denies dizziness, Denies frequent falls, Denies numbness, Denies tingling and Denies weakness Endo Denies fatigue and Denies palpitations Physical Exam Vital Signs: Last Vital Signs Pulse 84 10/08/23 13:01 BP 120/78 10/08/23 13:01 BMI result Body Mass Index 46.2 Const General: cooperative, alert, awake and in distress mild and respiratory Nutritional Appearance: obese morbidly obese Orientation/consciousness: patient oriented x3 Limitations: no limitations HEENT Head: Yes normocephalic and Yes atraumatic Neck Neck: Yes trachea midline, Yes supple and Yes JVD Resp Effort & Inspection: normal respiratory effort Auscultation: no rales, wheezes and bronchovesicular breath sounds Cardio Jugular venous distension: JVD Palpation: normal PMI Rate: regular rate Rhythm: regular rhythm Heart sounds: S1 normal heart sound present, S2 normal heart sound present, no click, no gallops, no murmurs and no rubs GI Inspection: Yes obesity Auscultation: normal bowel sounds Skin General skin exam: no rashes or lesions noted and ecchymosis Neuro General: patient oriented x3 and no focal motor deficits Speech: No Abnormal speech present Extrem General: No clubbing, No cyanosis and Yes edema (2 to 3+ below knee, marked lymphedema on the left) Assessment & Plan Assessment & Plan (1) Right heart failure: Code(s): I50.810 - Right heart failure, unspecified Plan: Right heart failure in this elderly woman related to significant pulmonary insufficiency and chronic respiratory failure. Has had no hospitalization related to right heart failure on current diuretic therapy. Discussed with her about continuing the same. Unfortunately is difficult to assess volume status with has significant lymphedema predominantly on the left side. Continue compression venous stocking for the same. Continue aggressively treating her respiratory failure especially hypoxemia was discussed with her. Continue CPAP therapy. Goals of therapy were discussed but remains at high risk for recurrent hospitalization. (2) CAD (coronary artery disease): Comment: Moderate diffuse three-vessel disease with calcified plaque without significant obstructive lesions by coronary CTA in March 2023 Code(s): I25.10 - Atherosclerotic heart disease of circle coronary artery without angina pectoris Plan: Moderate CAD without any symptoms of angina at current point time. Continue aggressive risk factor modification. Blood pressure is well optimized. Continue statin therapy with target goal LDL less than 70 mg/dL. No invasive interventions required. Will follow up in the clinic in 6 months time, sooner p.r.n. after an echocardiogram. Thank you for allowing me to partake in her care Orders: Orders CA echo transthoracic complete 6 Months I50.810 - Right heart failure, unspecified Medications: Changed From cefpodoxime must administer with a meal/food 200 mg PO BID 14 tabs 0RF To cefpodoxime must administer with a meal/food 200 mg PO BID From levofloxacin 750 mg PO DAILY 7 tabs 0RF To levofloxacin 750 mg PO DAILY Coding Level of Care Code Est Pt Level 4 (46900) Diagnoses Right heart failure I50.810 CAD (coronary artery disease) I25.10
[2023-10-08 13:01] VITALS: BP 120/78; PULSE 84; BMI 46.2
== END 2023-10-08 13:21 | disposition home or self-care (01) ==
PROVIDERS: PCP Internal Medicine; Visit Provider Internal Medicine Cardiovascular Disease
DX: I50.810 Right heart failure, unspecified (principal); I25.10 Atherosclerotic heart disease of native coronary artery without angina pectoris
CPT/HCPCS: 99214

== ENCOUNTER → 2023-10-08 12:47 | Outpatient (BNVA) | payer MEDICARE, SELFPAY | PROVIDERS: PCP Internal Medicine; Visit Provider Internal Medicine Cardiovascular Disease | DX: I50.810 Right heart failure, unspecified (principal); I25.10 Atherosclerotic heart disease of native coronary artery without angina pectoris | CPT/HCPCS: 99212 ==

== ENCOUNTER 2023-10-15 12:09 | Outpatient (REF) | payer MEDICARE, SELFPAY ==
[2023-10-15 13:26] LABS: MANUAL DIFF FLAG NO
[2023-10-15 13:56] LABS: Basophils Absolute Auto 0.1 X10*3/uL (0.0-0.2); Basophils Percent Auto 0.8 % (0-2); Eosinophils Absolute Auto 0.2 X10*3/uL (0.0-0.4); Eosinophils Percent Auto 2.8 % (0-4); Hematocrit 42.3 % (37.0-47.0); Hemoglobin 13.5 g/dl (12.0-16.0); Imm Gran Abs Auto 0.01 X10*3/uL (0.00-0.03); Imm Gran Pct Auto 0.1 % (0.0-0.4); Lymphocytes Absolute Auto 1.3 X10*3/uL (1.2-4.9); Lymphocytes Percent Auto 16.3 % (20-40); Mean Corpuscular HGB Conc 31.9 g/dl (31.0-35.0); Mean Corpuscular Hemoglobin 31.3 pg (27.0-33.0); Mean Corpuscular Volume 97.9 fL (80.0-98.0); Mean Platelet Volume 11.7 fL (9.4-12.3); Monocytes Absolute Auto 0.8 X10*3/uL (0.1-1.2); Monocytes Percent Auto 9.6 % (2-11); Neutrophils Absolute Auto 5.6 x10*3/uL (2.0-8.3); Neutrophils Percent Auto 70.4 % (45-73); Platelet Count 230 X10*3/uL (160-400); Red Blood Count 4.32 X10*6/uL (4.20-5.50)
[2023-10-15 14:06] LABS: Estimated Average Glucose 126 mg/dL; Hemoglobin A1C 150.3826 umol/L
[2023-10-15 14:25] LABS: Alanine Aminotransferase 18 U/L (0-31); Albumin Level 3.9 g/dL (3.5-5.0); Alkaline Phosphatase 100 U/L (39-117); Anion Gap 14 (12-20); Aspartate Amino Transferase 18 U/L (5-31); Bilirubin Total 0.4 mg/dL (0.0-1.0); Blood Urea Nitrogen 30 mg/dL (9-16); Calcium 9.5 mg/dL (8.4-10.2); Carbon Dioxide 29 mmol/L (22-29); Chloride 105 mmol/L (96-108); Cholesterol 154 mg/dL (<200); Estimated Glomerular Filt Rate 42; Glucose Random 96 mg/dL (60-115); Potassium 4.7 mmol/L (3.3-5.1); Sodium 143 mmol/L (135-145); Total Protein 7.5 g/dL (6.5-8.0)
[2023-10-15 14:48] LABS: Free T4 (Free Thyroxine) 0.96 ng/dL (0.71-1.85); Thyroid Stimulating Hormone 1.17 uIU/mL (0.32-4.0)
== END 2023-10-15 12:10 | disposition home or self-care (01) ==
LOC: HO.10HDL 12:09
PROVIDERS: Visit Provider Internal Medicine
DX: J44.9 Chronic obstructive pulmonary disease, unspecified (principal); E11.9 Type 2 diabetes mellitus without complications; E05.90 Thyrotoxicosis, unspecified without thyrotoxic crisis or storm; I25.10 Atherosclerotic heart disease of native coronary artery without angina pectoris
CPT/HCPCS: 36415; 80053; 82465; 83036; 84439; 84443; 85025

== ENCOUNTER 2023-11-13 13:50 | Outpatient (AMB) | payer MEDICARE, SELFPAY ==
[2023-11-13 13:57] VITALS: BP 136/76; PULSE 99; O2SAT 97; BMI 46.1
--- NOTE | 2023-11-13 13:57 | A.OFFVIS_ITS ---
Intake Vital Signs 11/13/23 13:57 11/13/23 14:12 Height 5 ft 5 in Weight 277 lb BMI 46.1 46.1 BP 136/76 Blood Pressure Location Rt brachial Position Sitting Pulse 99 Pulse Source Pulse Oximeter Pulse Oximetry (%) 97 Oxygen Delivery Method Room Air Intake Visit Reasons: fuv Stave Cutter Required: No Supervisor [employer]: Supervisor [employer] offered & declined Accompanied by: Spouse Allergies mold [MOLD] Allergy (Intermediate, Verified 11/13/23 14:08) COUGHING, SINUS CONGESTION Penicillins [PENICILLINS] Allergy (Intermediate, Verified 11/13/23 14:08) REVERSE REACTION MAKES PT FEEL WORSE Medication List - Last Reconciled 11/13/23 by Julita Stearns LPN allopurinol 100 mg PO DAILY bumetanide 2 mg PO BID diltiazem HCl ER (Tiadylt ER) 360 mg PO DAILY fluconazole 400 mg (2 x 200 mg) PO DAILY gemfibrozil 600 mg PO DAILY guaifenesin ER (Mucinex) 1,200 mg PO Q12H ipratropium bromide 2 sprays intranasal BID levofloxacin 750 mg PO DAILY loratadine (Claritin) 10 mg PO DAILY metformin ER 250 mg PO DAILY metolazone 2.5 mg PO Q48H omeprazole 20 mg PO DAILY oxymetazoline 0.05% (Mucinex Sinus-Max) 1 spray intranasal Q12H pravastatin 40 mg PO DAILY PFSH Medical History CAD (coronary artery disease) PVC (premature ventricular contraction) Morbid obesity Dyslipidemia Type 2 diabetes mellitus Lymphedema Hypertension COPD (chronic obstructive pulmonary disease) Arthritis Surgical History History of hysterectomy History of knee replacement Family History Mother Coronary artery disease Social History Household Members: Significant Other Housing: Apartment Do you presently have visiting nurse or other home services: No Alcohol intake: never Patient Tobacco Use Status: Never used Tobacco e-Cigarette/Vaping Use: Never Used Second Hand Smoke Exposure: No service: No Current occupational status: retired Physical Exam Vital Signs: Last Vital Signs Pulse 99 11/13/23 13:57 BP 136/76 01/10/24 13:57 Pulse Ox 97 11/13/23 13:57 Oxygen Delivery Method Room Air 11/13/23 13:57 BMI result Body Mass Index 46.1 Office Procedures Nebulizer Treatment Nebulizer Treatment 39045-Xtyzrnssz/MDI RX initial, or Nebulizer Subsequent Treatment Office Meds ipratropium 0.5 mg-albuterol 3 mg (2.5 mg base)/3 mL nebulization soln Performing Provider: Aida Quinn NP Performing Location: [facility] [place] [facility] Administered by: Julita Stearns LPN on 11/13/23 14:40 Dose Route Admin Location Dispensed Lot Number Expiration Date [facility] Behavioral Health Technician 3 mL inhalation 3 mL [id number] 08/03/25 54221-679-84 [employer] Assessment & Plan Assessment & Plan Orders: Orders AMB Nebulizer Treatment Today J44.9 - Chronic obstructive pulmonary disease, unspecified Coding CPT Codes Nebulizer Treatment - Nebulizer Treatment, initial or subsequent: 97997- Nebulizer/MDI RX initial, or Nebulizer Subsequent Treatment ([id number])
[2023-11-13 14:12] VITALS: BMI 46.1
--- NOTE | 2023-11-13 14:12 | A.OFFVIS_ITS ---
Intake Vital Signs 11/13/23 13:57 11/13/23 14:12 Height 5 ft 5 in Weight 277 lb BMI 46.1 46.1 BP 136/76 Blood Pressure Location Rt brachial Position Sitting Pulse 99 Pulse Source Pulse Oximeter Pulse Oximetry (%) 97 Oxygen Delivery Method Room Air Intake Visit Reasons: fuv Allergies mold [MOLD] Allergy (Intermediate, Verified 11/13/23 14:08) COUGHING, SINUS CONGESTION Penicillins [PENICILLINS] Allergy (Intermediate, Verified 11/13/23 14:08) REVERSE REACTION MAKES PT FEEL WORSE Medication List - Last Reconciled 11/13/23 by Julita Stearns LPN allopurinol 100 mg PO DAILY bumetanide 2 mg PO BID diltiazem HCl ER (Tiadylt ER) 360 mg PO DAILY fluconazole 400 mg (2 x 200 mg) PO DAILY gemfibrozil 600 mg PO DAILY guaifenesin ER (Mucinex) 1,200 mg PO Q12H ipratropium bromide 2 sprays intranasal BID levofloxacin 750 mg PO DAILY loratadine (Claritin) 10 mg PO DAILY metformin ER 250 mg PO DAILY metolazone 2.5 mg PO Q48H omeprazole 20 mg PO DAILY oxymetazoline 0.05% (Mucinex Sinus-Max) 1 spray intranasal Q12H pravastatin 40 mg PO DAILY HPI fuv HPI Details Izabel is an 83 year old female, never smoker, with underlying history of COPD on supplemental oxygen, MAGAN refuses CPAP therapy, right sided heart f ailure followed by cardiology on diuretics and morbid obesity. She is ambulating unassisted and accompanied by her . At baseline she reports moderate control of symptoms on duoneb and formorterol. Since the last visit she underwent bronchoscopy which revealed a fungal infection, treated with fluconazole. Her symptoms have improved since being treated. She continues to report moderate dyspnea on minimal exertion but productive cough has significantly decreased, now with white to yellow sputum. She has also lost 20+ lbs since on diuretic, prescribed by PCP. Today she presents to review barium swallow and chest CT results. [facility] Medical History CAD (coronary artery disease) PVC (premature ventricular contraction) Morbid obesity Dyslipidemia Type 2 diabetes mellitus Lymphedema Hypertension COPD (chronic obstructive pulmonary disease) Arthritis Surgical History History of hysterectomy History of knee replacement Family History Mother Coronary artery disease Social History Household Members: Significant Other Housing: Apartment Do you presently have visiting nurse or other home services: No Alcohol intake: never Patient Tobacco Use Status: Never used Tobacco e-Cigarette/Vaping Use: Never Used Second Hand Smoke Exposure: No service: No Current occupational status: retired Review of Systems Const Denies chills, Denies excessive sweating, Denies fever(s), Denies headache(s) and Denies night sweats Eyes Denies dry eyes, Denies irritation and Denies itchy eyes ENT Reports Normal hearing present, Denies headache(s) and Reports nasal congestion Card Denies chest pain, Denies chest pain at rest, Denies chest pain with activity, Reports dyspnea, Reports dyspnea on exertion and Reports orthopnea Resp Denies change in phlegm color, Reports chest congestion, Reports cough, Denies hemoptysis, Denies excessive phlegm production, Denies pain on inspiration, Denies pain with cough, Reports dyspnea, Reports dyspnea on exertion and Denies stridor Musc Denies myalgias Neuro Reports Normal hearing present and Denies headache(s) Endo Denies excessive sweating Matthias/Lymph Denies lymphadenopathy Aller/Immun Denies itchy eyes and Denies seasonal rhinorrhea Physical Exam Vital Signs: Last Vital Signs Pulse 99 11/13/23 13:57 BP 136/76 11/13/23 13:57 Pulse Ox 97 11/13/23 13:57 Oxygen Delivery Method Room Air 11/13/23 13:57 BMI result Body Mass Index 46.1 Const General: cooperative, comfortable, no acute distress and alert Nutritional Appearance: obese Orientation/consciousness: patient oriented x3 HEENT Head: Yes normal to inspection, Yes normocephalic and Yes atraumatic Ears: hearing grossly normal bilaterally and external ears normal Eyes Periorbital: periorbital findings abnormal bilateral Eyelids: Yes eyelid abnormality Sclerae: sclerae normal EOM: EOMs intact bilaterally Chest Chest palpation & inspection: normal inspection of the chest Resp Effort & Inspection: normal respiratory effort, able to speak in complete sentences, no audible wheezes, Actively coughing Quality: wet, no stridor, not tachypneic, no tripod positioning and no use of accessory muscles Auscultation: no crackles, rhonchi throughout, no wheezes and diminished lung sounds Cardio Rate: regular rate Rhythm: regular rhythm Skin Other: warm, dry Neuro General: patient oriented x3 Cranial nerves: Yes Normal hearing present Cognition (Neuro): normal cognition Extrem General: Yes pedal edema Psych Appearance: grossly normal and well kempt Speech and movement: Normal speech and movement present and Clear speech present Affect: normal affect Attitude: cooperative Thought process: Normal thought process present Thought content: Normal thought content present Insight: Good insight present (Psych) Judgement: Good judgement present (Psych) Office Procedures Nebulizer Treatment Nebulizer Treatment 57720-Pevjkdyow/MDI RX initial, or Nebulizer Subsequent Treatment Office Meds ipratropium 0.5 mg-albuterol 3 mg (2.5 mg base)/3 mL nebulization soln Performing Provider: Aida Quinn NP Performing Location: [facility] [place] [facility] Administered by: Julita Stearns LPN on 11/13/23 14:40 Dose Route Admin Location Dispensed Lot Number Expiration Date [facility] Batch Dumper 3 mL inhalation 3 mL [id number] 08/03/25 71420-162-13 [employer] Results Reviewed Results Reviewed: [address] [address] [address] Scan Report Signed Patient: Izabel Edwards MR#: [id number] : 1940 Acct:[id number] Age/Sex: 83 / F ADM Date: 08/21/23 Loc: HO.CT Attending Dr: Aida Quinn NP Ordering Physician: Aida Quinn NP Date of Service: 08/21/23 Procedure(s): CT chest w IV con Accession Number(s): [id number] cc: Jovanny Carter MD; Aida Quinn NP~ EXAMINATION: CT CHEST WITH CONTRAST CLINICAL INFORMATION: Abnormal chest x-ray, subpleural density right lower lateral chest wall. COMPARISON: Chest x-ray 07/17/2023. CTA chest 05/10/2013. TECHNIQUE: Multidetector volumetric CT imaging of the chest was obtained after the administration of 65 mL of Omnipaque 350 intravenous contrast without immediate adverse reactions. Axial MIP volume rendering provided. Sagittal and coronal reformatted images were obtained. This CT examination was performed using dose optimization techniques as appropriate, variously including the following: *Automated exposure control *Adjustment of mA and/or kV according to patient size (this includes techniques or standardized protocols for targeted exams where dose is matched to indication/reason for exam; i.e. extremities or head) *Use of iterative reconstruction technique DLP: 187 mGy-cm FINDINGS: LUNGS: There is no lung parenchymal abnormality to correlate with the recent finding on chest x-ray. Consolidation in the posterior left upper lobe and lingula consistent with pneumonia. In retrospect with the benefit of this CT finding, there is a very subtle opacity in this location on chest x-ray from 08/20/2023. No suspicious lung nodules. MEDIASTINUM: No mediastinal adenopathy. No pericardial effusion. Moderate LAD, LCx, RCA calcium. PLEURA: There is no pleural effusion. No pleural mass or thickening. AXILLA: No axillary adenopathy. UPPER ABDOMEN: Small hypodensity in the spleen is stable from prior CT abdomen and pelvis and most likely hemangioma or cyst. Simple cyst in the left upper kidney. Simple cyst in the left lobe of liver. No follow-up imaging is recommended for these findings. OSSEOUS STRUCTURES: Calloused fracture of the anterior right fifth and sixth ribs may explain the finding on chest x-ray. Degenerative changes in the spine CT/CT chest w IV con IMPRESSION: Left upper lobe consolidation consistent with pneumonia. Recommend follow-up chest x-ray in 4-6 weeks to ensure resolution. The subpleural density right lower lateral chest wall seen on prior chest x-ray does not have a lung correlation and appears related to callused fractures of the anterior right fifth and sixth ribs. Fleischner guidelines were followed. Assessment & Plan Assessment & Plan (1) COPD (chronic obstructive pulmonary disease): Code(s): J44.9 - Chronic obstructive pulmonary disease, unspecified (2) Obstructive sleep apnea: Code(s): G47.33 - Obstructive sleep apnea (adult) (pediatric) (3) Requires supplemental oxygen: Code(s): Z99.81 - Dependence on supplemental oxygen (4) Nocturnal hypoxemia: Code(s): G47.34 - Idiopathic sleep related nonobstructive alveolar hypoventilation (5) Right heart failure: Code(s): I50.810 - Right heart failure, unspecified Plan Reviewed MBSS evaluation which revealed no concerns and recommended small sips with thin liquids, otherwise regular diet. Izabel's presentation overall has significantly improved. On exam, scattered rhonchi appreciated and diminished lung sounds, improved with nebulizer, will send in prednisone. Will also send for CXR to assess for resolution of MAYTE consoldiation noted on prior imaging. Her main compliant today was difficulty with nasal congestion which she attributes to supplemental oxygen. Will send in prescription for humidified oxygen. All questions were answered and patient is in agreement of plan. Will follow up in 3 months or sooner if needed. Orders: Orders 2 AMB Nebulizer Treatment 11/13/23 J44.9 - Chronic obstructive pulmonary disease, unspecified XR chest 2V 11/13/23 R05.9 - Cough, unspecified, R93.89 - Abnormal findings on diagnostic imaging of other specified body structures Medications: New prednisone 40 mg (2 x 20 mg) PO DAILY 10 tabs 0RF Coding Level of Care Code Est Pt Level 4 (49694) Diagnoses COPD (chronic obstructive pulmonary disease) J44.9 Obstructive sleep apnea G47.33 Requires supplemental oxygen Z99.81 Nocturnal hypoxemia G47.34 Right heart failure I50.810 CPT Codes Nebulizer Treatment - Nebulizer Treatment, initial or subsequent: 25112- Nebulizer/MDI RX initial, or Nebulizer Subsequent Treatment ([id number])
== END 2023-11-13 15:01 | disposition home or self-care (01) ==
PROVIDERS: PCP Internal Medicine; Visit Provider Nurse Practitioner Family
DX: J44.9 Chronic obstructive pulmonary disease, unspecified (principal); G47.33 Obstructive sleep apnea (adult) (pediatric); Z99.81 Dependence on supplemental oxygen; G47.34 Idiopathic sleep related nonobstructive alveolar hypoventilation; I50.810 Right heart failure, unspecified
CPT/HCPCS: 99214

== ENCOUNTER → 2023-11-13 13:50 | Outpatient (BNVA) | payer MEDICARE, SELFPAY | PROVIDERS: PCP Internal Medicine; Visit Provider Nurse Practitioner Family | DX: J44.9 Chronic obstructive pulmonary disease, unspecified (principal); G47.33 Obstructive sleep apnea (adult) (pediatric); G47.34 Idiopathic sleep related nonobstructive alveolar hypoventilation; I50.810 Right heart failure, unspecified; Z99.81 Dependence on supplemental oxygen | CPT/HCPCS: 94640; 99212 ==

== ENCOUNTER 2023-11-25 12:06 | Outpatient (REF) | payer MEDICARE, SELFPAY ==
--- NOTE | ~2023-11-25 | XR_ITS ---
EXAMINATION: XR CHEST CLINICAL INFORMATION: Bilateral lower lobe airspace disease on 09/18/2023 CT COMPARISON: 09/18/2023 abdomen, 08/21/[address] 10 08/20/2023 chest radiograph TECHNIQUE: 2 views of the chest were obtained. FINDINGS: Heart size upper limits of normal, aortic calcifications seen. Bibasilar atelectasis, left greater than right. Mild degenerative changes. XR/XR chest 2V IMPRESSION: Mild bibasilar atelectasis, left greater than right.
== END 2023-11-25 12:07 | disposition home or self-care (01) ==
LOC: HO.XRAY 12:06
PROVIDERS: PCP Internal Medicine; Visit Provider Nurse Practitioner Family
DX: R93.89 Abnormal findings on diagnostic imaging of other specified body structures (principal); R05.9 Cough, unspecified
CPT/HCPCS: 71046

== ENCOUNTER 2023-12-24 11:34 | Outpatient (REF) | payer MEDICARE, SELFPAY ==
[2023-12-24 13:40] LABS: Estimated Average Glucose 117 mg/dL; Hemoglobin A1c % 5.7 % (<6.0)
[2023-12-24 14:08] LABS: Alanine Aminotransferase 7 U/L (0-31); Albumin Level 3.6 g/dL (3.5-5.0); Alkaline Phosphatase 96 U/L (39-117); Anion Gap 12 (12-20); Aspartate Amino Transferase 14 U/L (5-31); Bilirubin Total 0.4 mg/dL (0.0-1.0); Blood Urea Nitrogen 13 mg/dL (9-16); Carbon Dioxide 30 mmol/L (22-29); Chloride 105 mmol/L (96-108); Estimated Glomerular Filt Rate > 60; Glucose Random 91 mg/dL (60-115); Potassium 4.6 mmol/L (3.3-5.1); Sodium 142 mmol/L (135-145); Total Protein 6.6 g/dL (6.5-8.0)
[2023-12-24 14:14] LABS: Free T4 (Free Thyroxine) 0.88 ng/dL (0.71-1.85); Thyroid Stimulating Hormone 1.56 uIU/mL (0.32-4.0)
== END 2023-12-24 11:35 | disposition home or self-care (01) ==
LOC: HO.10HDL 11:34
PROVIDERS: Visit Provider Internal Medicine
DX: E03.9 Hypothyroidism, unspecified (principal); E11.9 Type 2 diabetes mellitus without complications; N18.9 Chronic kidney disease, unspecified; J44.9 Chronic obstructive pulmonary disease, unspecified; E78.5 Hyperlipidemia, unspecified
CPT/HCPCS: 36415; 80053; 83036; 84439; 84443

== ENCOUNTER 2024-02-18 10:42 | Outpatient (AMB) | payer MEDICARE, SELFPAY ==
--- NOTE | 2024-02-18 10:46 | MHC.OFFVIS ---
Intake Vital Signs 02/18/24 10:49 Height 5 ft 5 in Weight 297 lb BMI 49.4 BP 130/80 Blood Pressure Location Rt brachial Position Sitting Pulse 92 Pulse Source Pulse Oximeter Pulse Oximetry (%) 94 Oxygen Delivery Method Room Air Intake Visit Reasons: Solitary pulmonary nodule: 3 month f/u Biology Laboratory Assistant Required: No Certified Medical Dosimetrist: Certified Medical Dosimetrist offered & declined Accompanied by: Self / Same As Patient Allergies mold [MOLD] Allergy (Intermediate, Verified 02/18/24 10:53) COUGHING, SINUS CONGESTION Penicillins [PENICILLINS] Allergy (Intermediate, Verified 02/18/24 10:53) REVERSE REACTION MAKES PT FEEL WORSE Medication List - Last Reconciled 02/18/24 by Julita Stearns LPN allopurinol 100 mg PO DAILY bumetanide 2 mg PO BID diltiazem HCl ER (Tiadylt ER) 360 mg PO DAILY fluconazole 400 mg (2 x 200 mg) PO DAILY gemfibrozil 600 mg PO DAILY guaifenesin ER (Mucinex) 1,200 mg PO Q12H ipratropium bromide 2 sprays intranasal BID 30 days loratadine (Claritin) 10 mg PO DAILY metformin ER 250 mg PO DAILY metolazone 2.5 mg PO Q48H omeprazole 20 mg PO DAILY oxymetazoline 0.05% (Mucinex Sinus-Max) 1 spray intranasal Q12H pravastatin 40 mg PO DAILY HPI Solitary pulmonary nodule: 3 month f/u HPI Details Izabel is an 83 year old female, never smoker, with underlying history of COPD on supplemental oxygen, MAGAN refuses CPAP therapy, right sided heart failure followed by cardiology on diuretics and morbid obesity. At baseline she reports moderate control of symptoms on duoneb and formorterol. In september she underwent bronchoscopy which revealed a fungal infection, treated with fluconazole with significant improvement in symptoms as well as a 20 lb weight loss on diuretics. Unfortunately, her weight is back up 20+ lbs, which she attributes to her lymphedema. She has an upcoming appointment with cardiology and repeat echo in April. She does state that she has been taking her diuretic as prescribed. She reports an increase in sputum production and cough with intermittent wheezing. She denies chest tightness or worsening of dyspnea. She reports using her supplemental oxygen intermittently, as it often is inconvenient. She has been checking her O2 at home, stating it ranges from 92-94% on room air. She denies fevers, chills or sick contacts. [facility] Medical History (Updated 02/18/24 @ 11:07 by Aida Quinn NP) CAD (coronary artery disease) PVC (premature ventricular contraction) Morbid obesity Dyslipidemia Type 2 diabetes mellitus Lymphedema Hypertension COPD (chronic obstructive pulmonary disease) Arthritis Surgical History History of hysterectomy History of knee replacement Family History Mother Coronary artery disease Social History (Updated 02/18/24 @ 10:56 by Julita Stearns LPN) Household Members: Significant Other Housing: Apartment Do you presently have visiting nurse or other home services: No Alcohol intake: never Patient Tobacco Use Status: Never used Tobacco e-Cigarette/Vaping Use: Never Used Second Hand Smoke Exposure: No service: No Current occupational status: retired Review of Systems Const Denies chills, Denies excessive sweating, Denies fever(s), Denies headache(s) and Denies night sweats Eyes Denies dry eyes and Denies irritation ENT Reports Normal hearing present, Denies headache(s) and Reports nasal congestion Card Denies chest pain, Denies chest pain at rest, Denies chest pain with activity, Reports dyspnea, Reports dyspnea on exertion and Reports orthopnea Resp Denies change in phlegm color, Reports chest congestion, Reports cough, Denies hemoptysis, Denies pain on inspiration, Denies pain with cough, Reports dyspnea, Reports dyspnea on exertion and Denies stridor Musc Denies myalgias Neuro Reports Normal hearing present and Denies headache(s) Endo Denies excessive sweating Aller/Immun Denies seasonal rhinorrhea Physical Exam Vital Signs: Last Vital Signs Pulse 92 02/18/24 10:49 BP 130/80 02/18/24 10:49 Pulse Ox 94 02/18/24 10:49 Oxygen Delivery Method Room Air 02/18/24 10:49 BMI result Body Mass Index 49.4 Const General: cooperative, comfortable, no acute distress and alert Nutritional Appearance: obese Orientation/consciousness: patient oriented x3 HEENT Head: Yes normal to inspection, Yes normocephalic and Yes atraumatic Ears: hearing grossly normal bilaterally and external ears normal Eyes Periorbital: periorbital findings abnormal bilateral Eyelids: Yes eyelid abnormality Sclerae: sclerae normal EOM: EOMs intact bilaterally Chest Chest palpation & inspection: normal inspection of the chest Resp Other: rhonchi and faint expiratory wheezing throughout Effort & Inspection: normal respiratory effort, able to speak in complete sentences, no audible wheezes, Actively coughing Quality: wet, no stridor, not tachypneic, no tripod positioning and no use of accessory muscles Auscultation: no crackles, rhonchi throughout and diminished lung sounds Cardio Rate: regular rate Rhythm: regular rhythm Skin Other: warm, dry Neuro General: patient oriented x3 Cranial nerves: Yes Normal hearing present Cognition (Neuro): normal cognition Extrem Other: chronic lymphedema General: Yes pedal edema Psych Appearance: grossly normal and well kempt Speech and movement: Normal speech and movement present and Clear speech present Affect: normal affect Attitude: cooperative Thought process: Normal thought process present Thought content: Normal thought content present Insight: Good insight present (Psych) Judgement: Good judgement present (Psych) Assessment & Plan Assessment & Plan (1) COPD (chronic obstructive pulmonary disease): Code(s): J44.9 - Chronic obstructive pulmonary disease, unspecified (2) Obstructive sleep apnea: Code(s): G47.33 - Obstructive sleep apnea (adult) (pediatric) (3) Requires supplemental oxygen: Code(s): Z99.81 - Dependence on supplemental oxygen (4) Nocturnal hypoxemia: Code(s): G47.34 - Idiopathic sleep related nonobstructive alveolar hypoventilation (5) Lymphedema: Code(s): I89.0 - Lymphedema, not elsewhere classified (6) Right heart failure: Code(s): I50.810 - Right heart failure, unspecified Plan Izabel presents for routine follow up today and reports worsening bronchitic symptoms. Will treat with doxycyline and prednisone, as well as obtain CXR. Patient likely with worsening cardiac component secondary to excess fluid, noted by 20+ lbs weight gain. Discussed importance of follow up with cardiology. Will have a close follow up to reassess symptoms. Encouraged patient to use supplemental oxygen with any exertion. Patient also reported worsening lymphedema and requesting referral to OT, will enter this. All questions were answered and patient is in agreement of plan. Will follow up in 2-4 weeks or sooner if needed. Orders: Orders OT Evaluation and Treatment Today I89.0 - Lymphedema, not elsewhere classified XR chest 2V Today R05.9 - Cough, unspecified Medications: New prednisone 20 mg PO BID 10 tabs 0RF doxycycline hyclate 100 mg PO BID 14 caps 0RF Discontinued fluconazole Discontinued Reason: Patient Completed Course 400 mg (2 x 200 mg) PO DAILY 28 tabs 0RF Coding Level of Care Code Est Pt Level 4 (44126) Diagnoses COPD (chronic obstructive pulmonary disease) J44.9 Obstructive sleep apnea G47.33 Requires supplemental oxygen Z99.81 Nocturnal hypoxemia G47.34 Lymphedema I89.0 Right heart failure I50.810
[2024-02-18 10:49] VITALS: BP 130/80; PULSE 92; O2SAT 94; BMI 49.4
== END 2024-02-18 11:33 | disposition home or self-care (01) ==
PROVIDERS: PCP Internal Medicine; Visit Provider Nurse Practitioner Family
DX: J44.9 Chronic obstructive pulmonary disease, unspecified (principal); G47.33 Obstructive sleep apnea (adult) (pediatric); Z99.81 Dependence on supplemental oxygen; G47.34 Idiopathic sleep related nonobstructive alveolar hypoventilation; I89.0 Lymphedema, not elsewhere classified; I50.810 Right heart failure, unspecified
CPT/HCPCS: 99214

== ENCOUNTER → 2024-02-18 10:42 | Outpatient (BNVA) | payer MEDICARE, SELFPAY | PROVIDERS: PCP Internal Medicine; Visit Provider Nurse Practitioner Family | DX: J44.9 Chronic obstructive pulmonary disease, unspecified (principal); G47.33 Obstructive sleep apnea (adult) (pediatric); G47.34 Idiopathic sleep related nonobstructive alveolar hypoventilation; I89.0 Lymphedema, not elsewhere classified; I50.810 Right heart failure, unspecified; Z99.81 Dependence on supplemental oxygen | CPT/HCPCS: 99212 ==

== ENCOUNTER 2024-02-20 08:38 | Outpatient (REF) | payer MEDICARE, SELFPAY ==
--- NOTE | ~2024-02-20 | XR_ITS ---
EXAMINATION: XR CHEST 2 VIEWS CLINICAL INFORMATION: Cough. COMPARISON: Chest radiographs dated 11/25/2023. TECHNIQUE: Frontal and lateral views of the chest were obtained. FINDINGS: The heart, great vessels and mediastinum are normal. The thoracic aorta is tortuous and shows atherosclerotic calcification. There is mild elevation of the right hemidiaphragm. There is mild pulmonary vascular congestion, without overt congestive heart failure. The lungs show no focal infiltrate, effusion or pneumothorax. There is no acute osseous abnormality. XR/XR chest 2V IMPRESSION: 1. There is pulmonary vascular congestion, overt congestive heart failure. 2. No infiltrate or effusion is seen. 3. There is chronic mild elevation of the right hemidiaphragm.
== END 2024-02-20 08:39 | disposition home or self-care (01) ==
LOC: HO.XRAY 08:38
PROVIDERS: PCP Internal Medicine; Visit Provider Nurse Practitioner Family
DX: R05.9 Cough, unspecified (principal)
CPT/HCPCS: 71046

== ENCOUNTER 2024-02-28 13:16 | Emergency (ER) | payer MEDICARE, SELFPAY ==
--- NOTE | ~2024-02-28 | XR_ITS ---
EXAMINATION: XR CHEST CLINICAL INFORMATION: Fluid overload. Shortness of breath. COMPARISON: 02/20/2024 TECHNIQUE: 2 views of the chest were obtained. FINDINGS: The lungs are well expanded. No focal consolidation. Interval improvement in pulmonary vascular congestion. No pleural effusion. Cardiac silhouette is unchanged. Stable elevation of the right hemidiaphragm. XR/XR chest 2V IMPRESSION: Interval improvement in pulmonary vascular congestion.
[2024-02-28 14:41] VITALS: BP 159/73; PULSE 88; RESP 16; TEMP 37; O2SAT 95; BMI 50.2
--- NOTE | 2024-02-28 14:45 | ED_ITS ---
HPI - General Adult General Chief complaint: General Medical Stated complaint: fluid in heart valves ? Time Seen by Provider: 02/28/24 19:33 Related Data Home Medications ?Medication ?Instructions ?Recorded ?Confirmed allopurinol 100 mg tablet 100 mg PO DAILY 09/05/21 02/18/24 diltiazem HCl 360 mg capsule,24 360 mg PO DAILY 09/05/21 02/18/24 hr,extended release (Tiadylt ER) gemfibrozil 600 mg tablet 600 mg PO DAILY 09/05/21 02/18/24 loratadine 10 mg tablet (Claritin) 10 mg PO DAILY 09/05/21 02/18/24 metolazone 2.5 mg tablet 2.5 mg PO Q48H 09/05/21 02/18/24 omeprazole 20 mg capsule,delayed 20 mg PO DAILY 09/05/21 02/18/24 release pravastatin 40 mg tablet 40 mg PO DAILY 09/05/21 02/18/24 guaifenesin 600 mg tablet, 1,200 mg PO Q12H 05/10/22 02/18/24 extended release 12 hr (Mucinex) oxymetazoline 0.05 % nasal spray 1 spray intranasal Q12H 05/10/22 02/18/24 (Mucinex Sinus-Max) metformin 500 mg tablet,extended 250 mg PO DAILY 07/10/23 02/18/24 release 24 hr Previous Rx's ?Medication ?Instructions ?Recorded bumetanide 2 mg tablet 2 mg PO BID #180 tabs 12/19/23 ipratropium bromide 21 mcg (0.03 2 spray intranasal BID 30 days #30 01/15/24 %) nasal spray mL doxycycline hyclate 100 mg capsule 100 mg PO BID #14 caps 02/18/24 prednisone 20 mg tablet 20 mg PO BID #10 tabs 02/18/24 Allergies Allergy/AdvReac Type Severity Reaction Status Date / Time mold [MOLD] Allergy Intermediate COUGHING, Verified 02/28/24 14:46 SINUS CONGESTION Penicillins [PENICILLINS] Allergy Intermediate REVERSE Verified 02/28/24 14:46 REACTION MAKES PT FEEL WORSE PMFSH Past Medical History Medical History (Updated 02/29/24 @ 00:01 by Background Daemon) CAD (coronary artery disease) PVC (premature ventricular contraction) Morbid obesity Dyslipidemia Type 2 diabetes mellitus Lymphedema Hypertension COPD (chronic obstructive pulmonary disease) Arthritis Surgical History History of hysterectomy History of knee replacement Family History Family History Mother Coronary artery disease Social History Social History (Updated 02/18/24 @ 10:56 by Julita Stearns LPN) Household Members: Significant Other Housing: Apartment Do you presently have visiting nurse or other home services: No Alcohol intake: never Patient Tobacco Use Status: Never used Tobacco Smoked in Last 30 Days: No e-Cigarette/Vaping Use: Never Used Second Hand Smoke Exposure: No Use of substances other than those prescribed or required for medical reasons: No Advance Directives: No Advance Directives Information Provided: No service: No Current occupational status: retired Physical Exam ED Vital Signs: Vital Signs - 24 hr 02/28/24 14:41 02/28/24 17:56 02/28/24 19:59 Temperature 98.6 F 98.1 F 97.6 F Pulse Rate 88 82 88 Respiratory Rate 16 18 22 H Blood Pressure 159/73 H 155/83 H 163/83 H Pulse Oximetry 95 97 97 Oxygen Delivery Method Room Air Room Air Room Air 02/28/24 20:35 Temperature 97.6 F Pulse Rate 88 Respiratory Rate 22 H Blood Pressure 163/83 H Pulse Oximetry 97 Oxygen Delivery Method Room Air BMI result Body Mass Index 50.2 Course Course Course Narrative: RME performed by Neyda Barry PA-C. Patient is an 83 year old assigned female at presenting to the emergency department with possible fluid overload. Sent in by Dr. Gonzales. Detailed physical exam and review of systems are deferred to the department clinician. Labs, imaging, and swabs ordered. Patient placed back in the waiting room pending room availability and results. Medical Decision Making Lab Data 02/28/24 15:07 02/28/24 15:07 Labs: Lab Results 02/28/24 02/28/24 Range/Units 15:07 15:13 WBC 10.3 (4.8-10.8) X10*3/uL RBC 4.54 (4.20-5.50) X10*6/uL Hgb 14.5 (12.0-16.0) g/dl Hct 44.6 (37.0-47.0) % MCV 98.2 H (80.0-98.0) fL MCH 31.9 (27.0-33.0) pg MCHC 32.5 (31.0-35.0) g/dl RDW 13.9 (11.0-16.0) % Plt Count 214 (160-400) X10*3/uL MPV 10.8 (9.4-12.3) fL Immature Gran % (Auto) 0.5 H (0.0-0.4) % Neut % (Auto) 68.5 (45-73) % Lymph % (Auto) 18.2 L (20-40) % [place] % (Auto) 10.2 (2-11) % Eos % (Auto) 2.2 (0-4) % Baso % (Auto) 0.4 (0-2) % Lymph # (Auto) 1.9 (1.2-4.9) X10*3/uL [place] # (Auto) 1.1 (0.1-1.2) X10*3/uL Eos # (Auto) 0.2 (0.0-0.4) X10*3/uL Baso # (Auto) 0.0 (0.0-0.2) X10*3/uL Abs Immat Gran (auto) 0.05 H (0.00-0.03) X10*3/uL Absolute Neuts (auto) 7.1 (2.0-8.3) x10*3/uL Absolute Nucleated RBC 0.000 (0.0-0.012) X10*3/uL Nucleated RBC % (auto) 0.0 (0.0-0.2) /100WBC PT 11.2 (11.1-13.3) SEC INR 0.9 (0.9-1.1) APTT 33.4 (26.0-36.8) SEC VBG pH 7.45 H (7.32-7.43) VBG pCO2 45 mmHg VBG pO2 72 mmHg VBG HCO3 31 H (22-26) mmol/L VBG O2 Saturation 94.0 % VBG Base Excess 6.8 mmol/L Sodium 142 (135-145) mmol/L Potassium 4.0 (3.3-5.1) mmol/L Chloride 105 (96-108) mmol/L Carbon Dioxide 26 (22-29) mmol/L Anion Gap 15 (12-20) BUN 28 H (9-16) mg/dL Creatinine 0.91 (0.5-1.4) mg/dL Estim Creat Clear Calc 65.7 Estimated GFR 59 Random Glucose 125 H (60-115) mg/dL Calcium 9.6 D (8.4-10.2) mg/dL Magnesium 2.6 (1.6-2.6) mg/dL Total Bilirubin 0.3 (0.0-1.0) mg/dL AST 14 (5-31) U/L ALT 12 (0-31) U/L Alkaline Phosphatase 106 (39-117) U/L Troponin I High Sens 5.3 (<3.5-17.0) ng/L B-Natriuretic Peptide 80 (<100) pg/mL Total Protein 7.3 (6.5-8.0) g/dL Albumin 4.0 (3.5-5.0) g/dL Influenza Type A (PCR) NEGATIVE (Negative) Influenza Type B (PCR) NEGATIVE (Negative) RSV RNA Qual (PCR) NEGATIVE (Negative) SARS-CoV-2 RNA (RT-PCR) NEGATIVE (Negative) Discharge Plan Discharge Clinical Impression: Lymphedema, COPD (chronic obstructive pulmonary disease), Fluid overload Patient Disposition: Home, Self-Care Instructions: COPD (Chronic Obstructive Pulmonary Disease) (ED), Lymphedema (ED) Additional Instructions: There are no signs of acute heart failure at this time Continue to take your water pill and other medication as prescribed by tariff counsel and lung specialist Prescriptions: No Action bumetanide 2 mg tablet 2 mg PO BID Qty: 180 3RF ipratropium bromide 21 mcg (0.03 %) spray,non-aerosol 2 spray intranasal BID 30 Days Qty: 30 1RF metolazone 2.5 mg tablet 2.5 mg PO Q48H pravastatin 40 mg tablet 40 mg PO DAILY diltiazem HCl [Tiadylt ER] 360 mg capsule,extended release 24 hr 360 mg PO DAILY allopurinol 100 mg tablet 100 mg PO DAILY gemfibrozil 600 mg tablet 600 mg PO DAILY omeprazole 20 mg capsule,delayed release(DR/EC) 20 mg PO DAILY loratadine [Claritin] 10 mg Tablet 10 mg PO DAILY metformin 500 mg tablet extended release 24 hr 250 mg PO DAILY oxymetazoline [Mucinex Sinus-Max] 0.05 % [place],Non-Aerosol 1 spray INTRANASAL Q12H guaifenesin [Mucinex] 600 mg Tablet Extended Release 12hr 1,200 mg PO Q12H prednisone 20 mg tablet 20 mg PO BID Qty: 10 0RF doxycycline hyclate 100 mg capsule 100 mg PO BID Qty: 14 0RF Interventions: ED Discharge Assessment Last Done: 02/28/24 20:35 Discharge Date/Time: 02/28/24 20:35 Print Language: Romanian
--- NOTE | 2024-02-28 14:45 | ECG_ITS ---
Test Reason : sob Blood Pressure : / mmHG Vent. Rate : 084 BPM Atrial Rate : 084 BPM P-R Int : 202 ms QRS Dur : 094 ms QT Int : 408 ms P-R-T Axes : 108 -11 042 degrees QTc Int : 482 ms Sinus rhythm with frequent , and consecutive Premature ventricular complexes Moderate voltage criteria for LVH, may be normal variant ( R in aVL , Wai product ) Abnormal ECG When compared with ECG of 16-MAY-2023 07:56, Premature ventricular complexes are now Present Referred By: Neyda Barry Electronically Signed By:KATELYNN SHIN MD
[2024-02-28 15:17] LABS: Basophils Percent Auto 0.4 % (0-2); Eosinophils Absolute Auto 0.2 X10*3/uL (0.0-0.4); Eosinophils Percent Auto 2.2 % (0-4); Hematocrit 44.6 % (37.0-47.0); Hemoglobin 14.5 g/dl (12.0-16.0); Imm Gran Abs Auto 0.05 X10*3/uL (0.00-0.03); Imm Gran Pct Auto 0.5 % (0.0-0.4); Lymphocytes Absolute Auto 1.9 X10*3/uL (1.2-4.9); Lymphocytes Percent Auto 18.2 % (20-40); MANUAL DIFF FLAG NO; Mean Corpuscular HGB Conc 32.5 g/dl (31.0-35.0); Mean Corpuscular Hemoglobin 31.9 pg (27.0-33.0); Mean Corpuscular Volume 98.2 fL (80.0-98.0); Mean Platelet Volume 10.8 fL (9.4-12.3); Monocytes Absolute Auto 1.1 X10*3/uL (0.1-1.2); Monocytes Percent Auto 10.2 % (2-11); Neutrophils Absolute Auto 7.1 x10*3/uL (2.0-8.3); Neutrophils Percent Auto 68.5 % (45-73); Platelet Count 214 X10*3/uL (160-400); Red Blood Count 4.54 X10*6/uL (4.20-5.50); Red Cell Distribution Width 13.9 % (11.0-16.0); White Blood Count 10.3 X10*3/uL (4.8-10.8)
[2024-02-28 15:21] LABS: VBG Base Excess 6.8 mmol/L; VBG HCO3 31 mmol/L (22-26); VBG pCO2 45 mmHg; VBG pH 7.45 (7.32-7.43); VBG pO2 72 mmHg
[2024-02-28 15:22] LABS: Venous Blood Gas Refer to POC result
[2024-02-28 15:31] LABS: INTERNATIONAL NORM RATIO 0.9 (0.9-1.1); Prothrombin Time 11.2 SEC (11.1-13.3)
[2024-02-28 15:32] LABS: Alanine Aminotransferase 12 U/L (0-31); Alkaline Phosphatase 106 U/L (39-117); Anion Gap 15 (12-20); Aspartate Amino Transferase 14 U/L (5-31); Bilirubin Total 0.3 mg/dL (0.0-1.0); Blood Urea Nitrogen 28 mg/dL (9-16); Calcium 9.6 mg/dL (8.4-10.2); Carbon Dioxide 26 mmol/L (22-29); Chloride 105 mmol/L (96-108); Creatinine Clr Calc Pharmacy 65.7; Estimated Glomerular Filt Rate 59; Glucose Random 125 mg/dL (60-115); Magnesium 2.6 mg/dL (1.6-2.6); Sodium 142 mmol/L (135-145); Total Protein 7.3 g/dL (6.5-8.0)
[2024-02-28 15:34] LABS: Partial Thromboplastin Time 33.4 SEC (26.0-36.8)
[2024-02-28 15:40] LABS: B Type Natriuretic Peptide 80 pg/mL (<100)
[2024-02-28 15:41] LABS: Troponin-I High Sensitivity 5.3 ng/L (<3.5-17.0)
[2024-02-28 16:00] LABS: Influenza A PCR NEGATIVE (Negative); Influenza B PCR NEGATIVE (Negative); Resp Syncy Virus RNA Qual PCR NEGATIVE (Negative); SARS COV2 PCR INHOUSE NEGATIVE (Negative)
[2024-02-28 17:56] VITALS: BP 155/83; PULSE 82; RESP 18; TEMP 36.7; O2SAT 97
[2024-02-28 19:59] VITALS: BP 163/83; PULSE 88; RESP 22; TEMP 36.4; O2SAT 97
[2024-02-28 20:35] VITALS: BP 163/83; PULSE 88; RESP 22; TEMP 36.4; O2SAT 97
== END 2024-02-28 20:35 | disposition home or self-care (01) ==
PROVIDERS: Physician Assistant Medical; Emergency Provider Internal Medicine
DX: I89.0 Lymphedema, not elsewhere classified (principal); J44.9 Chronic obstructive pulmonary disease, unspecified; Z99.81 Dependence on supplemental oxygen; R06.02 Shortness of breath; E78.5 Hyperlipidemia, unspecified; E11.9 Type 2 diabetes mellitus without complications; I11.0 Hypertensive heart disease with heart failure; I50.810 Right heart failure, unspecified; R13.10 Dysphagia, unspecified; J92.9 Pleural plaque without asbestos; G47.34 Idiopathic sleep related nonobstructive alveolar hypoventilation; I20.0 Unstable angina; G47.33 Obstructive sleep apnea (adult) (pediatric); E66.9 Obesity, unspecified; Z68.43 Body mass index [BMI] 50.0-59.9, adult; Z79.02 Long term (current) use of antithrombotics/antiplatelets; Z79.899 Other long term (current) drug therapy; Z79.84 Long term (current) use of oral hypoglycemic drugs; Z03.818 Encounter for observation for suspected exposure to other biological agents ruled out
CPT/HCPCS: 0241U; 36415; 71046; 80053; 82803; 83735; 83880; 84484; 85025; 85610; 85730; 93005; 99283; 99284

== ENCOUNTER → 2024-02-28 14:45 | Outpatient (BNV) | payer MEDICARE, SELFPAY | PROVIDERS: Emergency Provider Internal Medicine; Visit Provider Internal Medicine Cardiovascular Disease | DX: I49.1 Atrial premature depolarization (principal) | CPT/HCPCS: 93010 ==

== ENCOUNTER 2024-03-17 10:34 | Outpatient (AMB) | payer MEDICARE, SELFPAY ==
--- NOTE | 2024-03-17 10:42 | MHC.OFFVIS ---
Vital Signs 03/17/24 10:43 Height 5 ft 4 in Weight 297 lb 2 oz BMI 51.0 BP 148/76 H Blood Pressure Location Lt brachial Position Sitting Pulse 91 Pulse Source Pulse Oximeter Pulse Oximetry (%) 95 Oxygen Delivery Method Room Air Intake Visit Reasons: Solitary pulmonary nodule Allergies mold [MOLD] Allergy (Intermediate, Verified 03/17/24 10:51) COUGHING, SINUS CONGESTION Penicillins [PENICILLINS] Allergy (Intermediate, Verified 03/17/24 10:51) REVERSE REACTION MAKES PT FEEL WORSE HPI HPI Solitary pulmonary nodule: Details: Izabel is an 83 year old female, never smoker, with underlying history of COPD on supplemental oxygen, MAGAN refuses CPAP therapy, right sided heart failure followed by cardiology on bumex 2 mg BID and morbid obesity. At baseline she reports moderate control of symptoms on duoneb and formorterol. In september she underwent bronchoscopy which revealed a fungal infection, treated with fluconazole with significant improvement in symptoms as well as a 20 lb weight loss on diuretics. Unfortunately, her weight is back up 20+ lbs, and reports progressively worsening BLE lymphedema. She has an upcoming appointment with cardiology and repeat echo in April. She does state that she has been taking her diuretic as prescribed. Today she presents for a close follow up. CXR performed on 02/19 revealed increased pulmonary congestion suggestive of CHF . Patient was sent to ED for further evaluation and ED did not feel patient's symptoms were related to fluid overload, repeat CXR revealed improvement in pulmonary congestion. She continues to report productive cough, which has decreased since doxycyline prescribed at last visit. She reports while on prednisone her symptoms of dyspnea and wheezing improved however shortly after symptoms returned. She reports using her supplemental oxygen intermittently, and it not using today. [facility] Medical History (Updated 02/29/24 @ 00:01 by Piyush Wing) CAD (coronary artery disease) PVC (premature ventricular contraction) Morbid obesity Dyslipidemia Type 2 diabetes mellitus Lymphedema Hypertension COPD (chronic obstructive pulmonary disease) Arthritis Surgical History History of hysterectomy History of knee replacement Family History Mother Coronary artery disease Social History Household Members: Significant Other Housing: Apartment Do you presently have visiting nurse or other home services: No Alcohol intake: never Patient Tobacco Use Status: Never used Tobacco e-Cigarette/Vaping Use: Never Used Second Hand Smoke Exposure: No service: No Current occupational status: retired Review of Systems Const Denies chills, Denies excessive sweating, Denies fever(s), Denies headache(s) and Denies night sweats Eyes Denies dry eyes and Denies irritation ENT Reports Normal hearing present, Denies headache(s) and Reports nasal congestion Card Denies chest pain, Denies chest pain at rest, Denies chest pain with activity, Reports dyspnea, Reports dyspnea on exertion and Reports orthopnea Resp Denies change in phlegm color, Reports chest congestion, Reports cough, Denies hemoptysis, Denies pain on inspiration, Denies pain with cough, Reports dyspnea, Reports dyspnea on exertion and Denies stridor Musc Denies myalgias Neuro Reports Normal hearing present and Denies headache(s) Endo Denies excessive sweating Aller/Immun Denies seasonal rhinorrhea Physical Exam Vital Signs: Last Vital Signs Pulse 91 03/17/24 10:43 BP 148/76 H 03/17/24 10:43 Pulse Ox 95 03/17/24 10:43 Oxygen Delivery Method Room Air 03/17/24 10:43 BMI result Body Mass Index 51.0 Const General: cooperative, comfortable, no acute distress and alert Nutritional Appearance: obese Orientation/consciousness: patient oriented x3 HEENT Head: Yes normal to inspection, Yes normocephalic and Yes atraumatic Ears: hearing grossly normal bilaterally and external ears normal Eyes Periorbital: periorbital findings abnormal bilateral Eyelids: Yes eyelid abnormality Sclerae: sclerae normal EOM: EOMs intact bilaterally Chest Chest palpation & inspection: normal inspection of the chest Resp Effort & Inspection: normal respiratory effort, able to speak in complete sentences, no audible wheezes, no stridor, not tachypneic, no tripod positioning and no use of accessory muscles Auscultation: no crackles, rhonchi throughout and diminished lung sounds Cardio Rate: regular rate Rhythm: regular rhythm Skin Other: warm, dry Neuro General: patient oriented x3 Cranial nerves: Yes Normal hearing present Cognition (Neuro): normal cognition Extrem Other: chronic lymphedema General: Yes pedal edema Psych Appearance: grossly normal and well kempt Speech and movement: Normal speech and movement present and Clear speech present Affect: normal affect Attitude: cooperative Thought process: Normal thought process present Thought content: Normal thought content present Insight: Good insight present (Psych) Judgement: Good judgement present (Psych) Results Reviewed Results Reviewed: [address] [address] XRay Report Signed Patient: Izabel Edwards MR#: [id number] : 1940 Acct:[id number] Age/Sex: 83 / F ADM Date: 02/20/24 Loc: HO.XRAY Attending Dr: Aida Quinn NP Ordering Physician: Aida Quinn NP Date of Service: 02/20/24 Procedure(s): XR chest 2V Accession Number(s): [id number] cc: Jovanny Carter MD; Aida Quinn NP~ EXAMINATION: XR CHEST 2 VIEWS CLINICAL INFORMATION: Cough. COMPARISON: Chest radiographs dated 11/25/2023. TECHNIQUE: Frontal and lateral views of the chest were obtained. FINDINGS: The heart, great vessels and mediastinum are normal. The thoracic aorta is tortuous and shows atherosclerotic calcification. There is mild elevation of the right hemidiaphragm. There is mild pulmonary vascular congestion, without overt congestive heart failure. The lungs show no focal infiltrate, effusion or pneumothorax. There is no acute osseous abnormality. XR/XR chest 2V IMPRESSION: 1. There is pulmonary vascular congestion, overt congestive heart failure. 2. No infiltrate or effusion is seen. 3. There is chronic mild elevation of the right hemidiaphragm. Dictated By: Cricket Zavala MD Signed By: <Electronically signed by Cricket Zavala MD in OV> 02/27/242056 DD/ 0910 TD/TT: Preflight Inspector: TRUMAN Assessment & Plan Assessment & Plan (1) COPD (chronic obstructive pulmonary disease): Code(s): J44.9 - Chronic obstructive pulmonary disease, unspecified Category: Medical (2) Obstructive sleep apnea: Code(s): G47.33 - Obstructive sleep apnea (adult) (pediatric) Category: Medical (3) Requires supplemental oxygen: Code(s): Z99.81 - Dependence on supplemental oxygen Category: Medical (4) Nocturnal hypoxemia: Code(s): G47.34 - Idiopathic sleep related nonobstructive alveolar hypoventilation Category: Medical (5) Lymphedema: Code(s): I89.0 - Lymphedema, not elsewhere classified Category: Medical (6) Right heart failure: Code(s): I50.810 - Right heart failure, unspecified Category: Medical Plan Izabel presents for close follow up after treatment of bronchitic symptoms and possible worsening heart failure. On exam patient with rhonchi throughout, will send in longer prednisone taper. Overall patient likely with worsening cardiac component secondary to excess fluid, noted by 20+ lbs weight gain. She has a repeat echo and follow up with cardiology in April. If patient still with signs suggestive of fluid overload will consider referral to nephrology. Encouraged patient to use supplemental oxygen with any exertion. At the last visit, patient reported worsening lymphedema and requesting referral to OT. Unfortunately [facility] is scheduling sometime in May and she is requesting referral be sent to [facility]. Will enter referral. All questions were answered and patient is in agreement of plan. Will follow up in 8-10 weeks or sooner if needed. Orders: Orders OT Evaluation and Treatment Today I89.0 - Lymphedema, not elsewhere classified Medications: New prednisone see taper instructions Take 4 pills daily for 5 days, then go down by 1 pill every 5 days; 20 days 50 tabs 0RF 10 mg PO DIRECTED 50 tabs 0RF Coding Level of Care Code Est Pt Level 4 (14758) Diagnoses COPD (chronic obstructive pulmonary disease) J44.9 Obstructive sleep apnea G47.33 Requires supplemental oxygen Z99.81 Nocturnal hypoxemia G47.34 Lymphedema I89.0 Right heart failure I50.810
[2024-03-17 10:43] VITALS: BP 148/76; PULSE 91; O2SAT 95; BMI 51.0
== END 2024-03-17 11:42 | disposition home or self-care (01) ==
PROVIDERS: PCP Internal Medicine; Visit Provider Nurse Practitioner Family
DX: J44.9 Chronic obstructive pulmonary disease, unspecified (principal); G47.33 Obstructive sleep apnea (adult) (pediatric); Z99.81 Dependence on supplemental oxygen; G47.34 Idiopathic sleep related nonobstructive alveolar hypoventilation; I89.0 Lymphedema, not elsewhere classified; I50.810 Right heart failure, unspecified
CPT/HCPCS: 99214

== ENCOUNTER → 2024-03-17 10:34 | Outpatient (BNVA) | payer MEDICARE, SELFPAY | PROVIDERS: PCP Internal Medicine; Visit Provider Nurse Practitioner Family | DX: J44.9 Chronic obstructive pulmonary disease, unspecified (principal); G47.33 Obstructive sleep apnea (adult) (pediatric); G47.34 Idiopathic sleep related nonobstructive alveolar hypoventilation; I89.0 Lymphedema, not elsewhere classified; I50.810 Right heart failure, unspecified; Z99.81 Dependence on supplemental oxygen | CPT/HCPCS: 99212 ==

== ENCOUNTER 2024-04-03 04:52 | Emergency (ER) | payer MEDICARE, SELFPAY ==
--- NOTE | ~2024-04-03 | CT_ITS ---
EXAMINATION: CT CHEST WITHOUT CONTRAST CLINICAL INFORMATION: Cough. Chest pain. COMPARISON: 08/21/2023 TECHNIQUE: Multidetector volumetric CT imaging of the chest was done. Axial MIP volume rendering provided. Sagittal and coronal reformatted images were obtained. This CT examination was performed using dose optimization techniques as appropriate, variously including the following: *Automated exposure control *Adjustment of mA and/or kV according to patient size (this includes techniques or standardized protocols for targeted exams where dose is matched to indication/reason for exam; i.e. extremities or head) *Use of iterative reconstruction technique DLP: 661 mGy-cm FINDINGS: LUNGS: No suspicious pulmonary nodule. No focal consolidation. Central airways are patent. MEDIASTINUM: Imaged thyroid gland is heterogeneous. No bulky axillary, mediastinal or hilar lymphadenopathy. Ascending thoracic aorta measures 4.2 x 4.3 cm in transverse dimension. Pulmonary arteries are dilated. Heart is enlarged. Small pericardial effusion. CORONARY ARTERY CALCIFICATION: Severe. PLEURA: No pleural effusion. UPPER ABDOMEN: The left hemidiaphragm is elevated. No adrenal mass. Hypodensities in the liver, spleen and left kidney are incompletely characterized. OSSEOUS STRUCTURES: No destructive bone lesions. CT/CT chest wo IV con IMPRESSION: No acute intrathoracic abnormality. Dilated ascending thoracic aorta.
[2024-04-03 05:07] VITALS: BP 182/79; PULSE 81; O2SAT 96
[2024-04-03 05:09] VITALS: BP 173/68; PULSE 79; RESP 23; TEMP 36.6; O2SAT 96; BMI 30.6
--- NOTE | 2024-04-03 05:13 | ECG_ITS ---
Test Reason : CHEST PAIN Blood Pressure : / mmHG Vent. Rate : 079 BPM Atrial Rate : 079 BPM P-R Int : 168 ms QRS Dur : 094 ms QT Int : 416 ms P-R-T Axes : 055 -15 067 degrees QTc Int : 477 ms Sinus rhythm with frequent Premature ventricular complexes Possible Left atrial enlargement Left ventricular hypertrophy ( R in aVL , [place] product ) Abnormal ECG When compared with ECG of 28-FEB-2024 14:55, No significant change was found Referred By: Alysha Mcknight Electronically Signed By:KASSY GALINDO
[2024-04-03 05:31] LABS: Basophils Percent Auto 0.2 % (0-2); Eosinophils Percent Auto 0.2 % (0-4); Hematocrit 46.1 % (37.0-47.0); Hemoglobin 15.3 g/dl (12.0-16.0); Imm Gran Abs Auto 0.09 X10*3/uL (0.00-0.03); Imm Gran Pct Auto 0.7 % (0.0-0.4); Lymphocytes Absolute Auto 1.3 X10*3/uL (1.2-4.9); Lymphocytes Percent Auto 10.8 % (20-40); MANUAL DIFF FLAG NO; Mean Corpuscular HGB Conc 33.2 g/dl (31.0-35.0); Mean Corpuscular Hemoglobin 32.1 pg (27.0-33.0); Mean Corpuscular Volume 96.6 fL (80.0-98.0); Mean Platelet Volume 10.7 fL (9.4-12.3); Monocytes Percent Auto 7.7 % (2-11); Neutrophils Absolute Auto 9.9 x10*3/uL (2.0-8.3); Neutrophils Percent Auto 80.4 % (45-73); Platelet Count 203 X10*3/uL (160-400); Red Blood Count 4.77 X10*6/uL (4.20-5.50); Red Cell Distribution Width 14.1 % (11.0-16.0); White Blood Count 12.3 X10*3/uL (4.8-10.8)
--- NOTE | 2024-04-03 07:03 | ED_ITS ---
HPI - Chest Pain General Chief Complaint: Chest Pain Stated Complaint: cp Time Seen by Provider: 04/03/24 05:11 Source: patient, EMS and old records reviewed Mode of arrival: EMS Limitations: no limitations History of Present Illness ED Provider: ROMMEL ANDREWS narrative: 83 yo female with PMH of lymphedema on COPD on 2L NC (not always compliant), R heart failure, MAGAN, CAD, HTN, here with c/o chest wall pain and cough with yellow sputum starting last night. NO fevers, pain worse with movements and coughing. No change in sputum from baseline. Her pulm doctor did start her on prednisone yesterday given her worsening dyspnea yesterday but she hasn't started it yet. MD complaint: other (COPD, cough, chest wall pain) Onset (ago): day(s) (last night) Timing of current episode: constant Prior episodes: Yes Onset: during rest Pain location: left chest and right chest Pain radiation: none Severity: moderate Quality: aching Relieving factors: nothing Exacerbating factors: palpation, movement and other (cough) Context: recent illness Associated symptoms: dyspnea Treatment prior to arrival: none Related Data Home Medications ?Medication ?Instructions ?Recorded ?Confirmed allopurinol 100 mg tablet 100 mg PO DAILY 09/05/21 02/18/24 diltiazem HCl 360 mg capsule,24 360 mg PO DAILY 09/05/21 02/18/24 hr,extended release (Tiadylt ER) gemfibrozil 600 mg tablet 600 mg PO DAILY 09/05/21 02/18/24 loratadine 10 mg tablet (Claritin) 10 mg PO DAILY 09/05/21 02/18/24 metolazone 2.5 mg tablet 2.5 mg PO Q48H 09/05/21 02/18/24 omeprazole 20 mg capsule,delayed 20 mg PO DAILY 09/05/21 02/18/24 release pravastatin 40 mg tablet 40 mg PO DAILY 09/05/21 02/18/24 guaifenesin 600 mg tablet, 1,200 mg PO Q12H 05/10/22 02/18/24 extended release 12 hr (Mucinex) oxymetazoline 0.05 % nasal spray 1 spray intranasal Q12H 05/10/22 02/18/24 (Mucinex Sinus-Max) metformin 500 mg tablet,extended 250 mg PO DAILY 07/10/23 02/18/24 release 24 hr Previous Rx's ?Medication ?Instructions ?Recorded bumetanide 2 mg tablet 2 mg PO BID #180 tabs 12/19/23 ipratropium bromide 21 mcg (0.03 2 spray intranasal BID 30 days #30 01/15/24 %) nasal spray mL doxycycline hyclate 100 mg capsule 100 mg PO BID #14 caps 02/18/24 prednisone 10 mg tablet 10 mg PO DIRECTED #50 tabs 03/17/24 doxycycline hyclate 100 mg capsule 100 mg PO BID 7 days #14 caps 04/03/24 Allergies Allergy/AdvReac Type Severity Reaction Status Date / Time mold [MOLD] Allergy Intermediate COUGHING, Verified 04/03/24 05:11 SINUS CONGESTION Penicillins [PENICILLINS] Allergy Intermediate REVERSE Verified 04/03/24 05:11 REACTION MAKES PT FEEL WORSE Review of Systems 2 Review of Systems: Constitutional : No Fever, No Chills ENT/Mouth : No Hoarseness, No sore throat, No Rhinorrhea Eyes: No Redness, No Discharge, No Vision Changes Cardiovascular : pos Chest Pain, positive SOB, positive Dyspnea on Exertion, No Edema Respiratory : positive Cough, pos Sputum, positive Wheezing, Gastrointestinal : No Nausea, No Vomiting, No Diarrhea, No abdominal Pain Genitourinary : No Dysuria, No Hematuria Musculoskeletal : No joint pain, No Myalgias Skin : No rash Neuro : No Weakness, No Numbness, No Headache Psych : No anxiety, depression Heme/Lymph: No Bruising, No Bleeding Endocrine : No Polyuria, No Polydipsia All other systems reviewed and are negative PMFSH Past Medical History Attestation statement: The following information was validated with the patient. Source: old records reviewed Medical History CAD (coronary artery disease) PVC (premature ventricular contraction) Morbid obesity Dyslipidemia Type 2 diabetes mellitus Lymphedema Hypertension COPD (chronic obstructive pulmonary disease) Arthritis Surgical History History of hysterectomy History of knee replacement Family History Family History Mother Coronary artery disease Social History Social History Household Members: Significant Other Housing: Apartment Do you presently have visiting nurse or other home services: No Alcohol intake: never Patient Tobacco Use Status: Never used Tobacco e-Cigarette/Vaping Use: Never Used Second Hand Smoke Exposure: No Advance Directives: No Advance Directives Information Provided: Yes service: No Current occupational status: retired Physical Exam 2 Vital Signs: Vital Signs: Last Vital Signs Temp 98.3 F 04/03/24 07:31 Pulse 77 04/03/24 08:24 Resp 22 H 04/03/24 08:24 BP 164/64 H 04/03/24 07:31 Pulse Ox 96 04/03/24 07:31 O2 Del Method Nasal Cannula 04/03/24 07:31 O2 Flow Rate 2 04/03/24 07:31 Oxygen Flow Rate 2 04/03/24 05:09 BMI result Body Mass Index 30.6 Appearance: Alert. Oriented X3. No acute distress. Eyes: Pupils equal, round and reactive to light. ENT: Pharynx normal. Neck: Normal inspection. Neck supple. CVS: Normal heart rate and rhythm. Pulses normal. Respiratory: No respiratory distress. Breath sounds diminished throughout with wheezes noted - sputum is yellow in collection bag Abdomen: Soft and nontender. Skin: Skin warm and dry. Normal skin color. Normal skin turgor. Extremities: symmetric lower extremity lymphedema - moderate Neuro: Oriented X 3. No motor deficit. No sensory deficit. Medications Administered Discontinued Medications Generic Name Dose Route Start Last Admin Trade Name Freq PRN Reason Stop Dose Admin Albuterol Sulfate 2.5 mg/ 0 mg 04/03/24 08:19 04/03/24 08:23 Albuterol/Ipratropium 3 ml INHALE 04/03/24 08:20 5 dose ONCE ONE Administration Guaifenesin/Codeine Phosphate 5 ml 04/03/24 07:27 04/03/24 07:46 Guaifen/Codeine Sf 200/20/10ml 10 Ml Liquid PO 04/03/24 07:28 5 ml ONCE ONE Administration Methylprednisolone Sodium Succinate 60 mg 04/03/24 07:27 04/03/24 07:46 Methylprednisolone Sod Succ 125 Mg/2 Ml Vial IVPUSH 04/03/24 07:28 60 mg ONCE ONE Administration Medical Decision Making Medical Decision Making MDM Narrative: 83 yo female with PMH of lymphedema on COPD on 2L NC (not always compliant), R heart failure, MAGAN, CAD, HTN, here with c/o chest wall pain cough wheezes since yesterday at this time no trauma to chest it is markedly reproduceable will obtain labs, EKG, troponin x 1 given pain > 6 hours will start on neb, IV steroids, obtain CT scan of chest for mass/rib fracture. Differential Diagnosis Differential Diagnoses: The differential diagnosis associated with the presentation includes COPD, chest wall pain rib fracture, unlikely ACS, low susp for VTE it seems MSK In nature Admission/Observation Consideration of admission/observation: Escalation of care including admission/observation considered no hypoxia, feels better, workup reassuring discussed aneurysm stable for DC at this time Lab Data MDM Lab Attestation statement: I reviewed the patient's lab results. 04/03/24 05:27 04/03/24 08:00 Labs: Lab Results 04/03/24 04/03/24 04/03/24 Range/Units 05:27 07:50 07:52 WBC 12.3 H (4.8-10.8) X10*3/uL RBC 4.77 (4.20-5.50) X10*6/uL Hgb 15.3 (12.0-16.0) g/dl Hct 46.1 (37.0-47.0) % MCV 96.6 (80.0-98.0) fL MCH 32.1 (27.0-33.0) pg MCHC 33.2 (31.0-35.0) g/dl RDW 14.1 (11.0-16.0) % Plt Count 203 (160-400) X10*3/uL MPV 10.7 (9.4-12.3) fL Immature Gran % (Auto) 0.7 H (0.0-0.4) % Neut % (Auto) 80.4 H (45-73) % Lymph % (Auto) 10.8 L (20-40) % [place] % (Auto) 7.7 (2-11) % Eos % (Auto) 0.2 (0-4) % Baso % (Auto) 0.2 (0-2) % Lymph # (Auto) 1.3 (1.2-4.9) X10*3/uL [place] # (Auto) 1.0 (0.1-1.2) X10*3/uL Eos # (Auto) 0.0 (0.0-0.4) X10*3/uL Baso # (Auto) 0.0 (0.0-0.2) X10*3/uL Abs Immat Gran (auto) 0.09 H (0.00-0.03) X10*3/uL Absolute Neuts (auto) 9.9 H (2.0-8.3) x10*3/uL Absolute Nucleated RBC 0.000 (0.0-0.012) X10*3/uL Nucleated RBC % (auto) 0.0 (0.0-0.2) /100WBC VBG pH 7.40 (7.32-7.43) VBG pCO2 49 mmHg VBG pO2 50 mmHg VBG HCO3 30 H (22-26) mmol/L VBG O2 Saturation 81.0 % VBG Base Excess 5.0 mmol/L Sodium (135-145) mmol/L Potassium (3.3-5.1) mmol/L Chloride (96-108) mmol/L Carbon Dioxide (22-29) mmol/L Anion Gap (12-20) BUN (9-16) mg/dL Creatinine (0.5-1.4) mg/dL Estim Creat Clear Calc Estimated GFR Random Glucose (60-115) mg/dL Lactic Acid 1.5 (0.5-2.0) mmol/L Calcium (8.4-10.2) mg/dL Troponin I High Sens 10.4 D (<3.5-17.0) ng/L B-Natriuretic Peptide 91 (<100) pg/mL Influenza Type A (PCR) NEGATIVE (Negative) Influenza Type B (PCR) NEGATIVE (Negative) RSV RNA Qual (PCR) NEGATIVE (Negative) SARS-CoV-2 RNA (RT-PCR) NEGATIVE (Negative) 04/03/24 Range/Units 08:00 WBC (4.8-10.8) X10*3/uL RBC (4.20-5.50) X10*6/uL Hgb (12.0-16.0) g/dl Hct (37.0-47.0) % MCV (80.0-98.0) fL MCH (27.0-33.0) pg MCHC (31.0-35.0) g/dl RDW (11.0-16.0) % Plt Count (160-400) X10*3/uL MPV (9.4-12.3) fL Immature Gran % (Auto) (0.0-0.4) % Neut % (Auto) (45-73) % Lymph % (Auto) (20-40) % [place] % (Auto) (2-11) % Eos % (Auto) (0-4) % Baso % (Auto) (0-2) % Lymph # (Auto) (1.2-4.9) X10*3/uL [place] # (Auto) (0.1-1.2) X10*3/uL Eos # (Auto) (0.0-0.4) X10*3/uL Baso # (Auto) (0.0-0.2) X10*3/uL Abs Immat Gran (auto) (0.00-0.03) X10*3/uL Absolute Neuts (auto) (2.0-8.3) x10*3/uL Absolute Nucleated RBC (0.0-0.012) X10*3/uL Nucleated RBC % (auto) (0.0-0.2) /100WBC VBG pH (7.32-7.43) VBG pCO2 mmHg VBG pO2 mmHg VBG HCO3 (22-26) mmol/L VBG O2 Saturation % VBG Base Excess mmol/L Sodium 143 (135-145) mmol/L Potassium 4.1 (3.3-5.1) mmol/L Chloride 105 (96-108) mmol/L Carbon Dioxide 29 (22-29) mmol/L Anion Gap 13 (12-20) BUN 30 H (9-16) mg/dL Creatinine 0.81 (0.5-1.4) mg/dL Estim Creat Clear Calc 56.0 Estimated GFR > 60 Random Glucose 98 (60-115) mg/dL Lactic Acid (0.5-2.0) mmol/L Calcium 9.4 (8.4-10.2) mg/dL Troponin I High Sens (<3.5-17.0) ng/L B-Natriuretic Peptide (<100) pg/mL Influenza Type A (PCR) (Negative) Influenza Type B (PCR) (Negative) RSV RNA Qual (PCR) (Negative) SARS-CoV-2 RNA (RT-PCR) (Negative) Independent Interpretation I performed an independent interpretation of an: EKG and CT Scan (aortic aneurysm) Interpretation: Rate: 79 Rhythm: NSR with frequent PVCs [place]: left , LVH Normal P waves. Normal LEO. Normal QRS complex. ST T wave : normal no JAE qTC: 471 prior studies: no acute ischemia The study has been interpreted contemporaneously by me. . Radiology Impression Discussion of test interpretation with radiology: I have reviewed the radiologist's reading. Independent Historian Clinical information obtained from an independent historian. History obtained from or confirmed by: Other (family) External Record Review External record reviewed: Inpatient record Prescription Management I considered prescription management with: Antibiotic and Other Discharge Plan Discharge Clinical Impression: COPD (chronic obstructive pulmonary disease), Acute chest wall pain Patient Disposition: Home, Self-Care Instructions: COPD (Chronic Obstructive Pulmonary Disease) (ED), Chest Wall Pain (ED) Additional Instructions: start prednisone, start antibiotics, return for worsening symptoms or pain fevers confusion incidental aneurysm follow up with Dr. Gonzales On doxycycline, do not take pills immediately before going to bed and swallow pills with plenty of water. Avoid direct sunlight, iron, antacids, and Pepto Bismol. Call your provider if you develop new ringing in your ears, new problems hearing, dizziness, difficulty swallowing, rash, abdominal discomfort, nausea, or diarrhea.? Prescriptions: New doxycycline hyclate 100 mg capsule 100 mg PO BID 7 Days Qty: 14 0RF No Action bumetanide 2 mg tablet 2 mg PO BID Qty: 180 3RF ipratropium bromide 21 mcg (0.03 %) spray,non-aerosol 2 spray intranasal BID 30 Days Qty: 30 1RF metolazone 2.5 mg tablet 2.5 mg PO Q48H pravastatin 40 mg tablet 40 mg PO DAILY diltiazem HCl [Tiadylt ER] 360 mg capsule,extended release 24 hr 360 mg PO DAILY allopurinol 100 mg tablet 100 mg PO DAILY gemfibrozil 600 mg tablet 600 mg PO DAILY omeprazole 20 mg capsule,delayed release(DR/EC) 20 mg PO DAILY loratadine [Claritin] 10 mg Tablet 10 mg PO DAILY metformin 500 mg tablet extended release 24 hr 250 mg PO DAILY oxymetazoline [Mucinex Sinus-Max] 0.05 % [place],Non-Aerosol 1 spray INTRANASAL Q12H aifenesin [Mucinex] 600 mg Tablet Extended Release 12hr 1,200 mg PO Q12H doxycycline hyclate 100 mg capsule 100 mg PO BID Qty: 14 0RF prednisone 10 mg tablet 10 mg PO DIRECTED Qty: 50 0RF Rx Instructions: see taper instructions Take 4 pills daily for 5 days, then go down by 1 pill every 5 days; 20 days 50 tabs 0RF Print Language: [place]
[2024-04-03 07:31] VITALS: BP 164/64; PULSE 75; RESP 16; TEMP 36.8; O2SAT 96
[2024-04-03] MEDS: guaiFEN/Codeine SF 200/20/10ML 10 ML LIQUID 5 ML PO (07:46)
[2024-04-03] MEDS: methylPREDNISolone Sod Succ 125 MG/2 ML VIAL 60 MG IVPUSH (07:46)
[2024-04-03 08:01] LABS: Venous Blood Gas Refer to POC result
[2024-04-03 08:01] LABS: VBG HCO3 30 mmol/L (22-26); VBG pCO2 49 mmHg; VBG pO2 50 mmHg
[2024-04-03 08:05] LABS: B Type Natriuretic Peptide 91 pg/mL (<100)
[2024-04-03 08:10] LABS: Lactic Acid 1.5 mmol/L (0.5-2.0)
[2024-04-03 08:18] LABS: Anion Gap 13 (12-20); Blood Urea Nitrogen 30 mg/dL (9-16); Calcium 9.4 mg/dL (8.4-10.2); Carbon Dioxide 29 mmol/L (22-29); Chloride 105 mmol/L (96-108); Estimated Glomerular Filt Rate > 60; Glucose Random 98 mg/dL (60-115); Potassium 4.1 mmol/L (3.3-5.1); Sodium 143 mmol/L (135-145)
[2024-04-03 08:21] LABS: Troponin-I High Sensitivity 10.4 ng/L (<3.5-17.0)
[2024-04-03] MEDS: Albuterol Sulfate 2.5 MG, Albuterol/Iprat 2.5/0.5MG 3 ML 3 ML INHALE (08:23)
[2024-04-03 08:24] VITALS: PULSE 77; RESP 22; O2SAT 97
[2024-04-03 08:39] LABS: Influenza A PCR NEGATIVE (Negative); Influenza B PCR NEGATIVE (Negative); Resp Syncy Virus RNA Qual PCR NEGATIVE (Negative); SARS COV2 PCR INHOUSE NEGATIVE (Negative)
[2024-04-03 11:46] VITALS: BP 178/79; PULSE 92; RESP 22; O2SAT 95
[2024-04-03 12:15] VITALS: BP 178/79; PULSE 92; RESP 22; TEMP 36.8; O2SAT 95
== END 2024-04-03 12:15 | disposition home or self-care (01) ==
PROVIDERS: Emergency Medicine Emergency Medical Services; Emergency Provider Emergency Medicine; PCP Internal Medicine
DX: R07.89 Other chest pain (principal); J44.9 Chronic obstructive pulmonary disease, unspecified; I11.0 Hypertensive heart disease with heart failure; I50.9 Heart failure, unspecified; Z99.81 Dependence on supplemental oxygen; Z03.818 Encounter for observation for suspected exposure to other biological agents ruled out
CPT/HCPCS: 0241U; 36415; 71250; 80048; 82803; 83605; 83880; 84484; 85025; 87040; 93005; 94640; 96374; 99284; 99285; J2919

== ENCOUNTER → 2024-04-03 05:13 | Outpatient (BNV) | payer MEDICARE, SELFPAY | PROVIDERS: Emergency Provider Emergency Medicine; PCP Internal Medicine; Visit Provider Internal Medicine | DX: I42.2 Other hypertrophic cardiomyopathy (principal); R94.31 Abnormal electrocardiogram [ECG] [EKG] | CPT/HCPCS: 93010 ==

== ENCOUNTER → 2024-04-08 09:55 | Outpatient (REF) | payer MEDICARE, SELFPAY ==
--- NOTE | 2024-04-08 09:59 | CA_ITS ---
Transthoracic Echocardiogram Patient (Last, First, Middle): Izabel Edwards M Gender: Female Date of : 1940 Age: 83 Procedure Date: 04/08/2024 Procedure Type: Transthoracic Echocardiogram Location: OP Height: 165.1 cm Weight: 134.72 kg BSA: 2.34 m2 Heart Rate: bpm BP: 134 / 80 mmHg Vegetable Vendor: Referring MD: Jaxson Gonzales MD Type Proof Reproducer: Jaxson Gonzales MD Symptoms: I50.810 - Right heart failure, unspecified Study Quality: Adequate ECG Rhythm: Sinus with extra beats Conclusions: - 1. Low normal LV ejection fraction 50-55% with moderate LVH with elevated filling pressures 2. Mildly dilated left atrium 3. Mildly elevated right ventricular systolic pressure mildly elevated right atrial pressures 4. Mildly dilated ascending aorta 3.9 cm 5. Mild aortic regurgitation 6. No gross pericardial effusion Findings Left Ventricle Normal left ventricular cavity size. There is moderately increased left ventricular wall thickness. The left ventricular systolic function is normal. The visually estimated ejection fraction is between 50-55%. Spectral Doppler is indicative of an impaired relaxation filling pattern. Elevated filling pressures. E/E prime ratio is >15, consistent with elevated filling pressures. Right Ventricle Normal right ventricular cavity size. There is normal right ventricular systolic function. Atria The left atrium is mildly dilated. There is no evidence of interatrial shunt. The right atrium is normal in size. Aortic Valve There is mild calcification of the aortic valve. There is mild thickening of the aortic valve. There is no aortic valve stenosis. There is mild aortic valve regurgitation. Mitral Valve The mitral valve was not well visualized. There is mild mitral annular calcification. There is trace mitral valve regurgitation. There is no mitral valve stenosis. Pulmonic Valve The pulmonic valve was not well visualized. Tricuspid Valve Likely normal tricuspid valve structure and function. There is mild tricuspid valve regurgitation. Mild pulmonary hypertension is present. Great Vessels All visible segments of the aorta are normal in size. The pulmonary artery was not well visualized. There is mild dilatation of the ascending aorta measuring 3.90 cm. Venous The inferior vena cava is normal in size and collapses less than 50% with inspiration. Pericardium/Pleural There is no evidence of pericardial effusion. Prior Study Comparison Changes noted compared to prior study dated: 05/11/2022. LVH is worse. RVSP is elevated. Measurements 2D Linear Measurements IVSd: 1.41 0.6-0.9/0.6-1.0 cm LVIDd: 4.52 3.9-5.3/4.2-5.9 cm LVIDd Index: 1.93 2.4-3.2/2.2-3.1 cm/m2 LVIDs: 2.94 2.0-3.6 cm LVPWd: 1.48 0.7-1.1 cm Ao Root: 3.60 2.1-3.5 cm LA Diam: 4.10 2.7-3.8/3.0-4.0 cm LAIDs Index: 1.75 1.5-2.3 cm/m2 LV Mass: 327.10 67-162/88-224 g LV Mass Index: 139.79 43-95/49-115 g/m2 LVOT Diam: 2.50 3.0+(-)1.3 cm 2D Systolic Function EF 4C: 48.40 >55% EF 2C: 58.90 >55% EF BiP: 53.40 >55% Mitral Valve MV VTI: 0.27 MV Pk Sami: 1.23 MV Mn Sami: 0.64 MV Pk Grad: 6.00 MV Mn Grad: 2.00 MV Pk E: 1.01 MV PK A: 1.24 MV Decel Time: 177.00 E/A: 0.80 E'Lateral: 8.49 E'Medial: 4.24 E/E' Med: 23.80 E/E' Lat: 11.90 PHT: 52.00 MVA PHT: 4.23 MVA Continuity: 4.84 Decel [place]: 5.70 Aortic Valve AoV Pk Sami: 1.42 AoV Mn Sami: 0.95 AoV VTI: 0.35 AoV Pk Grad: 8.00 Aov Mn Grad: 4.00 BRENDAN Cont.VTI: 3.75 LVOT LVOT Pk Sami: 1.00 LVOT Mn Sami: 0.62 LVOT VTI: 0.27 LVOT Pk Grad: 4.00 LVOT Mn Grad: 2.00 LVOT Diam: 2.50 LVOT Area: 4.91 Diastolic Function MV Pk E: 1.01 MV Pk A: 1.24 E/A: 0.80 E'Medial: 4.24 E/E' Med: 23.80 E' Laterial: 8.49 E/E' Lat: 11.90 Right Ventricle TAPSE (mm): 24.00 TVS' Sami: 14.00 Tricuspid Valve TR Pk Sami: 2.97 TR Pk Grad: 35.00 RA Press: 8.00 RVSP: 43.00 Great Vessels Aorta Ao Root-2D: 3.60 2.0-3.7 cm Ao Asc: 3.90 2.1-3.4 cm Pulmonary Valve PV Pk Sami: 1.09 Peak PV Grad: 5.00 Updated in Other Vendor System with Status of Final Jaxson Gonzales MD electronically signed on 04/09/2024 12:31:20 PM with status of Final
== END ==
LOC: HO.CARD 09:55
PROVIDERS: PCP Internal Medicine; Visit Provider Internal Medicine Cardiovascular Disease
DX: I50.810 Right heart failure, unspecified (principal)
CPT/HCPCS: 93306

== ENCOUNTER → 2024-04-08 09:59 | Outpatient (BNV) | payer MEDICARE, SELFPAY | PROVIDERS: PCP Internal Medicine; Visit Provider Internal Medicine Cardiovascular Disease | DX: I50.810 Right heart failure, unspecified (principal); I35.1 Nonrheumatic aortic (valve) insufficiency; I34.81 Nonrheumatic mitral (valve) annulus calcification; I36.1 Nonrheumatic tricuspid (valve) insufficiency | CPT/HCPCS: 93306 ==

== ENCOUNTER 2024-04-14 12:16 | Outpatient (AMB) | payer MEDICARE, SELFPAY ==
[2024-04-14 12:35] VITALS: BP 136/74; PULSE 96; BMI 49.2
--- NOTE | 2024-04-14 12:35 | A.OFFVIS_ITS ---
Vital Signs 04/14/24 12:35 Height 5 ft 4 in Weight 286 lb 9.615 oz BMI 49.2 BP 136/74 Blood Pressure Location Lt brachial Position Sitting Pulse 96 Intake Visit Reasons: 6 mth f/up Intake Note: 6 month follow-up after echo was in the ED on 04/03 pulmonary issues Monument Stonecutter Required: No Signs Cleaner: Signs Cleaner Present Accompanied by: Spouse Allergies mold [MOLD] Allergy (Intermediate, Verified 04/03/24 05:11) COUGHING, SINUS CONGESTION Penicillins [PENICILLINS] Allergy (Intermediate, Verified 04/03/24 05:11) REVERSE REACTION MAKES PT FEEL WORSE Medication List - Last Reconciled 04/14/24 by Jaxson Gonzales MD allopurinol 100 mg PO DAILY bumetanide 2 mg PO BID diltiazem HCl ER (Tiadylt ER) 360 mg PO DAILY gemfibrozil 600 mg PO DAILY guaifenesin ER (Mucinex) 1,200 mg PO Q12H ipratropium bromide 2 sprays intranasal BID 90 days loratadine (Claritin) 10 mg PO DAILY metformin ER 250 mg PO DAILY metolazone 2.5 mg PO Q48H omeprazole 20 mg PO DAILY oxymetazoline 0.05% (Mucinex Sinus-Max) 1 spray intranasal Q12H pravastatin 40 mg PO DAILY prednisone 10 mg PO DIRECTED HPI Comments Details: Cynthiabrianna for follow-up after 1 year. She remains on high diuretic doses bumetanide 2 mg b.i.d. and metolazone every other day. Her BNP remains in normal range. Her renal functions are stable. She continues to not use oxygen nighttime as she says this gives her dry nose and inability to breathe. She also does not use COPD. Continues to be limited because of her COPD. Has chronic cough productive of phlegm. Continues to have significant issues with bilateral lymphedema, left greater than right. Denies any palpitations. She says she still manages her day-to-day activity and rest when she has to. No chest pain. No lightheadedness, syncope. Recent echocardiogram showed low normal LV EF with moderate LVH with mildly dilated ascending aorta at 3.9 cm with mild aortic regurgitation and mildly elevated right ventricular systolic pressure right atrial pressures. [facility] Medical History CAD (coronary artery disease) PVC (premature ventricular contraction) Morbid obesity Dyslipidemia Type 2 diabetes mellitus Lymphedema Hypertension COPD (chronic obstructive pulmonary disease) Arthritis Surgical History History of hysterectomy History of knee replacement Family History Mother Coronary artery disease Social History Household Members: Significant Other Housing: Apartment Do you presently have visiting nurse or other home services: No Alcohol intake: never Patient Tobacco Use Status: Never used Tobacco e-Cigarette/Vaping Use: Never Used Second Hand Smoke Exposure: No service: No Current occupational status: retired Review of Systems Const Denies chills, Denies fatigue, Denies fever(s), Denies frequent falls, Denies weakness, Denies weight gain and Denies weight loss ENT Denies dizziness Card Denies chest pain, Denies leg edema, Denies lightheadedness, Denies palpitations, Denies dyspnea, Denies dyspnea on exertion, Denies orthopnea and Denies other (loss of consciousness) Resp Denies cough, Denies dyspnea and Denies dyspnea on exertion GI Denies hematochezia and Denies change in stool character Musc Denies abnormal gait, Denies muscle weakness, Denies numbness, Denies radiating pain into limb and Denies tingling Neuro Denies Abnormal speech present, Denies abnormal gait, Denies dizziness, Denies frequent falls, Denies numbness, Denies tingling and Denies weakness Endo Denies fatigue and Denies palpitations Physical Exam Vital Signs: Last Vital Signs Pulse 96 04/14/24 12:35 BP 136/74 04/14/24 12:35 BMI result Body Mass Index 49.2 Const General: cooperative, alert, awake and in distress mild and respiratory Nutritional Appearance: obese morbidly obese Orientation/consciousness: patient oriented x3 Limitations: no limitations HEENT Head: Yes normocephalic and Yes atraumatic Neck Neck: Yes trachea midline, Yes supple and Yes JVD Resp Effort & Inspection: normal respiratory effort Auscultation: no rales, wheezes, diminished lung sounds and bronchovesicular breath sounds Cardio Jugular venous distension: JVD Palpation: normal PMI Rate: regular rate Rhythm: regular rhythm Heart sounds: S1 normal heart sound present, S2 normal heart sound present, no click, no gallops, no murmurs and no rubs GI Inspection: Yes obesity Auscultation: normal bowel sounds Skin General skin exam: no rashes or lesions noted and ecchymosis Neuro General: patient oriented x3 and no focal motor deficits Speech: No Abnormal speech present Extrem General: No clubbing, No cyanosis and Yes edema (2 to 3+ below knee, marked lymphedema on the left) Assessment & Plan Assessment & Plan (1) Right heart failure: Code(s): I50.810 - Right heart failure, unspecified Category: Medical Plan: Right heart failure in this elderly woman related to significant pulmonary parenchymal disease as well as untreated sleep apnea with pulmonary hypertension. Clinically her BNP has normalized on current high-dose diuretic therapy. Continue the same. Renal function stable. Continue monitor renal function every 3 months along with electrolytes to see if she require any replacement therapy. She has significant lymphedema which requires treatment of his own. I do not think this is related to right heart failure. (2) CAD (coronary artery disease): Comment: Moderate diffuse three-vessel disease with calcified plaque without significant obstructive lesions by coronary CTA in March 2023 Code(s): I25.10 - Atherosclerotic heart disease of [place] coronary artery without angina pectoris Category: Medical Plan: CAD which is nonobstructive by coronary CTA with moderate disease. Continue aggressive medical therapy. Continue low-dose aspirin therapy. Continue aggressive blood pressure control. Continue diabetes management. Goal LDL less than 70 mg/dL. Follow up in the clinic in 1 year's time, sooner p.r.n.. Thank you for allowing me to partake in the care Coding Level of Care Code Est Pt Level 4 (22178) Diagnoses Right heart failure I50.810 CAD (coronary artery disease) I25.10
== END 2024-04-14 13:00 | disposition home or self-care (01) ==
PROVIDERS: PCP Internal Medicine; Visit Provider Internal Medicine Cardiovascular Disease
DX: I50.810 Right heart failure, unspecified (principal); I25.10 Atherosclerotic heart disease of native coronary artery without angina pectoris
CPT/HCPCS: 99214

== ENCOUNTER → 2024-04-14 12:16 | Outpatient (BNVA) | payer MEDICARE, SELFPAY | PROVIDERS: PCP Internal Medicine; Visit Provider Internal Medicine Cardiovascular Disease | DX: I50.810 Right heart failure, unspecified (principal); I25.10 Atherosclerotic heart disease of native coronary artery without angina pectoris | CPT/HCPCS: 99212 ==

== ENCOUNTER 2024-05-13 09:52 | Outpatient (REF) | payer MEDICARE, SELFPAY | END 2024-05-13 09:53 | disposition home or self-care (01) | LOC: HO.LNP 09:52 | PROVIDERS: PCP Internal Medicine; Visit Provider Nurse Practitioner Family | DX: J44.1 Chronic obstructive pulmonary disease with (acute) exacerbation (principal); R05.9 Cough, unspecified; G47.33 Obstructive sleep apnea (adult) (pediatric); Z99.81 Dependence on supplemental oxygen; I89.0 Lymphedema, not elsewhere classified; I50.810 Right heart failure, unspecified | CPT/HCPCS: 87070; 87077; 87186; 87205; 94640; 99212 ==

== ENCOUNTER 2024-05-13 09:52 | Outpatient (AMB) | payer MEDICARE, SELFPAY ==
--- NOTE | 2024-05-13 09:56 | A.OFFVIS_ITS ---
Vital Signs 05/13/24 09:57 Height 5 ft 4 in Weight 298 lb 2 oz BMI 51.2 BP 126/74 Blood Pressure Location Lt brachial Position Sitting Pulse 87 Pulse Source Pulse Oximeter Pulse Oximetry (%) 95 Oxygen Delivery Method Room Air Intake Visit Reasons: Solitary pulmonary nodule Allergies mold [MOLD] Allergy (Intermediate, Verified 05/13/24 10:01) COUGHING, SINUS CONGESTION Penicillins [PENICILLINS] Allergy (Intermediate, Verified 05/13/24 10:01) REVERSE REACTION MAKES PT FEEL WORSE HPI HPI Solitary pulmonary nodule: Details: Izabel is an 84 year old female, never smoker, with underlying history of COPD, MAGAN refuses CPAP therapy, right sided heart failure followed by cardiology on bumex 2 mg BID and morbid obesity. At baseline she reports moderate control of symptoms on duoneb and formorterol. In september 2023 she underwent bronchoscopy which revealed a fungal infection, treated with fluconazole with significant improvement in symptoms as well as a 20 lb weight loss on diuretics. Unfortunately, her weight is back up 20+ lbs, and reports progressively worsening BLE lymphedema. She is awaiting consultation at the lymphedema clinic. She recently was evaluated by Cardiology with no changes made to medication regimen. She continues to report productive cough with yellow sputum, chest congestion, wheezing and dyspnea on exertion. Since last with that she reports she has been using her supplemental oxygen very infrequently and is not using it today. [facility] Medical History CAD (coronary artery disease) PVC (premature ventricular contraction) Morbid obesity Dyslipidemia Type 2 diabetes mellitus Lymphedema Hypertension COPD (chronic obstructive pulmonary disease) Arthritis Surgical History History of hysterectomy History of knee replacement Family History Mother Coronary artery disease Social History Household Members: Significant Other Housing: Apartment Do you presently have visiting nurse or other home services: No Alcohol intake: never Patient Tobacco Use Status: Never used Tobacco e-Cigarette/Vaping Use: Never Used Second Hand Smoke Exposure: No service: No Current occupational status: retired Review of Systems Const Denies chills, Denies excessive sweating, Denies fever(s), Denies headache(s) and Denies night sweats Eyes Denies dry eyes and Denies irritation ENT Reports Normal hearing present, Denies headache(s) and Reports nasal congestion Card Denies chest pain, Denies chest pain at rest, Denies chest pain with activity, Reports dyspnea, Reports dyspnea on exertion and Reports orthopnea Resp Denies change in phlegm color, Reports chest congestion, Reports cough, Denies hemoptysis, Denies pain on inspiration, Denies pain with cough, Reports dyspnea, Reports dyspnea on exertion and Denies stridor Musc Denies myalgias Neuro Reports Normal hearing present and Denies headache(s) Endo Denies excessive sweating Aller/Immun Denies seasonal rhinorrhea Physical Exam Vital Signs: Last Vital Signs Pulse 87 05/13/24 09:57 BP 126/74 05/13/24 09:57 Pulse Ox 95 05/13/24 09:57 Oxygen Delivery Method Room Air 05/13/24 09:57 BMI result Body Mass Index 51.2 Const General: cooperative and alert Nutritional Appearance: obese Orientation/consciousness: patient oriented x3 HEENT Head: Yes normal to inspection, Yes normocephalic and Yes atraumatic Ears: hearing grossly normal bilaterally and external ears normal Eyes Periorbital: periorbital findings abnormal bilateral Eyelids: Yes eyelid abnormality Sclerae: sclerae normal EOM: EOMs intact bilaterally Chest Chest palpation & inspection: normal inspection of the chest Resp Effort & Inspection: able to speak in complete sentences, no stridor, not tachypneic, no tripod positioning and no use of accessory muscles Auscultation: no crackles, rhonchi throughout, wheezes and diminished lung sounds Cardio Rate: regular rate Rhythm: regular rhythm Skin Other: warm, dry Neuro General: patient oriented x3 Cranial nerves: Yes Normal hearing present Cognition (Neuro): normal cognition Extrem Other: chronic lymphedema General: Yes pedal edema Psych Appearance: grossly normal and well kempt Speech and movement: Normal speech and movement present and Clear speech present Affect: normal affect Attitude: cooperative Thought process: Normal thought process present Thought content: Normal thought content present Insight: Good insight present (Psych) Judgement: Good judgement present (Psych) Office Procedures Nebulizer Treatment Nebulizer Treatment [id number]/MDI RX initial, or Nebulizer Subsequent Treatment Office Meds ipratropium 0.5 mg-albuterol 3 mg (2.5 mg base)/3 mL nebulization elissa Performing Provider: Aida Quinn NP Performing Location: [facility] Administered by: Julita Stearns LPN on 05/13/24 10:34 Dose Route Admin Location Dispensed Lot Number Expiration Date [employer]DC [employer] 3 mL inhalation 3 mL [id number] 09/03/25 71492-612-38 [employer] Assessment & Plan Assessment & Plan (1) COPD (chronic obstructive pulmonary disease): Code(s): J44.9 - Chronic obstructive pulmonary disease, unspecified Category: Medical Qualifiers: COPD type: COPD with acute exacerbation Qualified Code(s): J44.1 - Chronic obstructive pulmonary disease with (acute) exacerbation (2) Obstructive sleep apnea: Code(s): G47.33 - Obstructive sleep apnea (adult) (pediatric) Category: Medical (3) Requires supplemental oxygen: Code(s): Z99.81 - Dependence on supplemental oxygen Category: Medical (4) Nocturnal hypoxemia: Code(s): G47.34 - Idiopathic sleep related nonobstructive alveolar hypoventilation Category: Medical (5) Lymphedema: Code(s): I89.0 - Lymphedema, not elsewhere classified Category: Medical (6) Right heart failure: Code(s): I50.810 - Right heart failure, unspecified Category: Medical Plan Izabel presents with continued bronchitic symptoms and on exam wheezing, rhonchi appreciated. Given patient's recent prescription of doxycycline, will send for sputum culture. She is aware of symptoms worsen to seek emergent care. If symptoms do not improve after antibiotics, will obtain chest x-ray. Will call patient with results of sputum culture and also send in prednisone. Unfortunately, she has essentially discontinued using supplemental oxygen as well as continues to refuse CPAP therapy for MAGAN. She is aware of the adverse effects with not being compliant with these therapies. All questions were answered and patient is in agreement of plan. Will follow up in 4 weeks or sooner if needed. Orders: Orders AMB Nebulizer Treatment 05/13/24 J44.1 - Chronic obstructive pulmonary disease with (acute) exacerbation Sputum Cult + Gram stain 05/13/24 R05.9 - Cough, unspecified Coding Level of Care Code Est Pt Level 4 (25776) Diagnoses COPD (chronic obstructive pulmonary disease) J44.1 COPD type: COPD with acute exacerbation Obstructive sleep apnea G47.33 Requires supplemental oxygen Z99.81 Nocturnal hypoxemia G47.34 Lymphedema I89.0 Right heart failure I50.810 CPT Codes Nebulizer Treatment - Nebulizer Treatment, initial or subsequent: 90755- Nebulizer/MDI RX initial, or Nebulizer Subsequent Treatment ([id number])
[2024-05-13 09:57] VITALS: BP 126/74; PULSE 87; O2SAT 95; BMI 51.2
== END 2024-05-13 10:43 | disposition home or self-care (01) ==
PROVIDERS: PCP Internal Medicine; Visit Provider Nurse Practitioner Family
DX: J44.1 Chronic obstructive pulmonary disease with (acute) exacerbation (principal); G47.33 Obstructive sleep apnea (adult) (pediatric); Z99.81 Dependence on supplemental oxygen; G47.34 Idiopathic sleep related nonobstructive alveolar hypoventilation; I89.0 Lymphedema, not elsewhere classified; I50.810 Right heart failure, unspecified
CPT/HCPCS: 99214

== ENCOUNTER → 2024-06-04 08:53 | Outpatient (REF) | payer MEDICARE, SELFPAY ==
--- NOTE | 2024-06-04 08:56 | HM_ITS ---
* Total monitoring time 3 days. * Underlying rhythm is sinus. Average ventricular rate 89/Min. * Frequent ventricular ectopy with a burden of 20%. This includes couplets, triplets, bigeminy and trigeminy. Multiple short runs. Longest 5 beats. * Rare supraventricular ectopy. * No significant pauses or AV blocks. * No patient markers or diary events. MTDD
== END ==
LOC: HO.CARD 08:53
PROVIDERS: PCP Internal Medicine; Visit Provider Internal Medicine
DX: R00.2 Palpitations (principal)
CPT/HCPCS: 93242

== ENCOUNTER → 2024-06-04 08:56 | Outpatient (BNV) | payer MEDICARE, SELFPAY | PROVIDERS: PCP Internal Medicine; Visit Provider Internal Medicine | DX: I49.3 Ventricular premature depolarization (principal) | CPT/HCPCS: 93244 ==

== ENCOUNTER 2024-06-09 09:48 | Outpatient (AMB) | payer MEDICARE, SELFPAY ==
--- NOTE | 2024-06-09 09:49 | MHC.OFFVIS ---
Vital Signs 06/09/24 09:50 Height 5 ft 4 in Weight 299 lb BMI 51.3 BP 140/88 H Blood Pressure Location Rt brachial Position Sitting Pulse 97 Pulse Source Pulse Oximeter Pulse Oximetry (%) 92 Oxygen Delivery Method Room Air Intake Visit Reasons: Solitary pulmonary nodule Allergies mold [MOLD] Allergy (Intermediate, Verified 06/09/24 09:53) COUGHING, SINUS CONGESTION Penicillins [PENICILLINS] Allergy (Intermediate, Verified 06/09/24 09:53) REVERSE REACTION MAKES PT FEEL WORSE HPI HPI Solitary pulmonary nodule: Details: Izabel is an 84 year old female, never smoker, with underlying history of COPD, MAGAN refuses CPAP therapy, right sided heart failure followed by cardiology on bumex 2 mg BID and morbid obesity. At baseline she reports moderate control of symptoms on duoneb and formorterol. In september 2023 she underwent bronchoscopy which revealed a fungal infection, treated with fluconazole with significant improvement in symptoms as well as a 20 lb weight loss on diuretics. Unfortunately, her weight is back up 20+ lbs, and reports progressively worsening BLE lymphedema. She has established care at [facility] lymphedema clinic. At the last visit, she was sent for sputum culture which revealed pseudamonas and treated with levaquin, as she has allergy to PCN. She reports overall improvements in symptoms however continues to have wheezing and dyspnea on exertion. She also notes that she is not using supplemental oxygen and returned it to [facility]. She is not interested in restarting. [facility] Medical History CAD (coronary artery disease) PVC (premature ventricular contraction) Morbid obesity Dyslipidemia Type 2 diabetes mellitus Lymphedema Hypertension COPD (chronic obstructive pulmonary disease) Arthritis Surgical History History of hysterectomy History of knee replacement Family History Mother Coronary artery disease Social History Household Members: Significant Other Housing: Apartment Do you presently have visiting nurse or other home services: No Alcohol intake: never Patient Tobacco Use Status: Never used Tobacco e-Cigarette/Vaping Use: Never Used Second Hand Smoke Exposure: No service: No Current occupational status: retired Review of Systems Const Denies chills, Denies excessive sweating, Denies fever(s), Denies headache(s) and Denies night sweats Eyes Denies dry eyes and Denies irritation ENT Reports Normal hearing present, Denies headache(s) and Reports nasal congestion Card Denies chest pain, Denies chest pain at rest, Denies chest pain with activity, Reports dyspnea, Reports dyspnea on exertion and Reports orthopnea Resp Denies change in phlegm color, Reports cough, Denies hemoptysis, Denies pain on inspiration, Denies pain with cough, Reports dyspnea, Reports dyspnea on exertion and Denies stridor Musc Denies myalgias Neuro Reports Normal hearing present and Denies headache(s) Endo Denies excessive sweating Aller/Immun Denies seasonal rhinorrhea Physical Exam Vital Signs: Last Vital Signs Pulse 97 06/09/24 09:50 BP 140/88 H 06/09/24 09:50 Pulse Ox 92 06/09/24 09:50 Oxygen Delivery Method Room Air 06/09/24 09:50 BMI result Body Mass Index 51.3 Const General: cooperative and alert Nutritional Appearance: obese Orientation/consciousness: patient oriented x3 HEENT Head: Yes normal to inspection, Yes normocephalic and Yes atraumatic Ears: hearing grossly normal bilaterally and external ears normal Eyes Periorbital: periorbital findings abnormal bilateral Eyelids: Yes eyelid abnormality Sclerae: sclerae normal EOM: EOMs intact bilaterally Chest Chest palpation & inspection: normal inspection of the chest Resp Effort & Inspection: able to speak in complete sentences, Actively coughing Quality: wet, no stridor, not tachypneic, no tripod positioning and no use of accessory muscles Auscultation: no crackles, rhonchi throughout and diminished lung sounds Cardio Rate: regular rate Skin Other: warm, dry Neuro General: patient oriented x3 Cranial nerves: Yes Normal hearing present Cognition (Neuro): normal cognition Extrem Other: chronic lymphedema General: Yes pedal edema Psych Appearance: grossly normal and well kempt Speech and movement: Normal speech and movement present and Clear speech present Affect: normal affect Attitude: cooperative Thought process: Normal thought process present Thought content: Normal thought content present Insight: Good insight present (Psych) Judgement: Good judgement present (Psych) Assessment & Plan Assessment & Plan (1) COPD (chronic obstructive pulmonary disease): Code(s): J44.9 - Chronic obstructive pulmonary disease, unspecified Category: Medical Qualifiers: COPD type: COPD with acute exacerbation Qualified Code(s): J44.1 - Chronic obstructive pulmonary disease with (acute) exacerbation (2) Obstructive sleep apnea: Code(s): G47.33 - Obstructive sleep apnea (adult) (pediatric) Category: Medical (3) Requires supplemental oxygen: Code(s): Z99.81 - Dependence on supplemental oxygen Category: Medical (4) Nocturnal hypoxemia: Code(s): G47.34 - Idiopathic sleep related nonobstructive alveolar hypoventilation Category: Medical (5) Lymphedema: Code(s): I89.0 - Lymphedema, not elsewhere classified Category: Medical (6) Right heart failure: Code(s): I50.810 - Right heart failure, unspecified Category: Medical Plan Izabel reports improvement in symptoms since treated with levaquin. Unfortunately she did not take prednisone due to recent RSV vaccination. Continues to have rhonchi, however significantly improved from last visit. Encouraged patient to take prescription of prednisone and will reevaluate at next visit. Discussed importance of supplemental oxygen and adverse effects of hypoxia however patient adamantly refuses. She also continues to refuse MAGAN. She is aware of the adverse effects with not being compliant with these therapies. All questions were answered and patient is in agreement of plan. Will follow up in 6-8 weeks or sooner if needed. Coding Level of Care Code Est Pt Level 4 (30999) Diagnoses COPD (chronic obstructive pulmonary disease) J44.1 COPD type: COPD with acute exacerbation Obstructive sleep apnea G47.33 Requires supplemental oxygen Z99.81 Nocturnal hypoxemia G47.34 Lymphedema I89.0 Right heart failure I50.810
[2024-06-09 09:50] VITALS: BP 140/88; PULSE 97; O2SAT 92; BMI 51.3
== END 2024-06-09 10:34 | disposition home or self-care (01) ==
PROVIDERS: PCP Internal Medicine; Visit Provider Nurse Practitioner Family
DX: J44.1 Chronic obstructive pulmonary disease with (acute) exacerbation (principal); G47.33 Obstructive sleep apnea (adult) (pediatric); Z99.81 Dependence on supplemental oxygen; G47.34 Idiopathic sleep related nonobstructive alveolar hypoventilation; I89.0 Lymphedema, not elsewhere classified; I50.810 Right heart failure, unspecified
CPT/HCPCS: 99214

== ENCOUNTER → 2024-06-09 09:48 | Outpatient (BNVA) | payer MEDICARE, SELFPAY | PROVIDERS: PCP Internal Medicine; Visit Provider Nurse Practitioner Family | DX: J44.1 Chronic obstructive pulmonary disease with (acute) exacerbation (principal); R91.1 Solitary pulmonary nodule; I50.810 Right heart failure, unspecified; I89.0 Lymphedema, not elsewhere classified; G47.33 Obstructive sleep apnea (adult) (pediatric); G47.34 Idiopathic sleep related nonobstructive alveolar hypoventilation; Z99.81 Dependence on supplemental oxygen; Z91.148 Patient's other noncompliance with medication regimen for other reason | CPT/HCPCS: 99212 ==

== ENCOUNTER 2024-06-20 03:24 | Emergency (ER) | payer MEDICARE, SELFPAY ==
--- NOTE | 2024-06-20 | ECG_ITS ---
Test Reason : CHEST PAIN Blood Pressure : / mmHG Vent. Rate : 099 BPM Atrial Rate : 099 BPM P-R Int : 204 ms QRS Dur : 090 ms QT Int : 370 ms P-R-T Axes : -08 -11 058 degrees QTc Int : 474 ms Sinus rhythm with occasional Premature ventricular complexes Nonspecific ST abnormality Abnormal ECG When compared with ECG of 03-APR-2024 05:02, No significant change was found Referred By: Generic ED Physician Electronically Signed By:NEGRITO CABALLERO
--- NOTE | ~2024-06-20 | XR_ITS ---
EXAMINATION: XR chest 1V CLINICAL INFORMATION: Reason for Exam chest wall pain COMPARISON: 02/28/2024 TECHNIQUE: Single portable frontal view. Tubes and lines: None Lungs and pleura: Patchy opacities developed right upper lobe, left upper lobe and left lower lobe, possibly patchy infiltrates, cannot rule out underlying lung nodules. Heart and mediastinum: The mediastinum is within normal limits.. Bones/soft tissue: Skeletal structures included are normal for patient's age. XR/XR chest 1V IMPRESSION: Patchy opacities developed in the right upper lobe, left upper lobe and left lower lobe, possibly patchy infiltrates, cannot rule out underlying lung nodules. Please correlate with patient's clinical presentation. Consider correlation with follow-up CT scan chest, if not performed follow-up chest x-ray PA and lateral in one month recommended to ensure complete clearance and exclude underlying pathology..
[2024-06-20 03:32] VITALS: BP 180/100; PULSE 105; O2SAT 99
[2024-06-20 03:39] VITALS: BP 178/90; PULSE 80; RESP 16; TEMP 36.6; O2SAT 95; BMI 48.6
[2024-06-20 03:55] LABS: MANUAL DIFF FLAG NO
--- NOTE | 2024-06-20 03:55 | MHC.EDTECH ---
Patient was biba from home ,ekg taken and was read by Provider ,Patient was hooked up to child care centre director ,vitals taken ,Patient was change into hospital gown ,all extra blanket removed ,pt was Comfortable ,blood drawn and sent to lab ,Called [facility] within Pt reach .Plan of care continue .
[2024-06-20 03:56] LABS: Basophils Absolute Auto 0.1 X10*3/uL (0.0-0.2); Basophils Percent Auto 0.6 % (0-2); Eosinophils Absolute Auto 0.4 X10*3/uL (0.0-0.4); Eosinophils Percent Auto 3.7 % (0-4); Hematocrit 43.6 % (37.0-47.0); Hemoglobin 14.2 g/dl (12.0-16.0); Imm Gran Abs Auto 0.06 X10*3/uL (0.00-0.03); Imm Gran Pct Auto 0.6 % (0.0-0.4); Lymphocytes Absolute Auto 2.1 X10*3/uL (1.2-4.9); Lymphocytes Percent Auto 21.7 % (20-40); Mean Corpuscular HGB Conc 32.6 g/dl (31.0-35.0); Mean Corpuscular Hemoglobin 32.4 pg (27.0-33.0); Mean Corpuscular Volume 99.5 fL (80.0-98.0); Mean Platelet Volume 10.4 fL (9.4-12.3); Monocytes Percent Auto 10.6 % (2-11); Neutrophils Absolute Auto 5.9 x10*3/uL (2.0-8.3); Neutrophils Percent Auto 62.8 % (45-73); Platelet Count 200 X10*3/uL (160-400); Red Blood Count 4.38 X10*6/uL (4.20-5.50); Red Cell Distribution Width 14.6 % (11.0-16.0); White Blood Count 9.4 X10*3/uL (4.8-10.8)
[2024-06-20 04:10] LABS: INTERNATIONAL NORM RATIO 0.9 (0.9-1.1); Prothrombin Time 10.5 SEC (11.1-13.3)
[2024-06-20 04:14] LABS: Alanine Aminotransferase 18 U/L (0-31); Albumin Level 3.9 g/dL (3.5-5.0); Alkaline Phosphatase 86 U/L (39-117); Anion Gap 15 (12-20); Aspartate Amino Transferase 14 U/L (5-31); Bilirubin Total 0.3 mg/dL (0.0-1.0); Blood Urea Nitrogen 33 mg/dL (9-16); Calcium 9.4 mg/dL (8.4-10.2); Carbon Dioxide 29 mmol/L (22-29); Chloride 105 mmol/L (96-108); Estimated Glomerular Filt Rate 51; Glucose Random 103 mg/dL (60-115); Sodium 145 mmol/L (135-145); Total Protein 6.6 g/dL (6.5-8.0)
--- NOTE | 2024-06-20 04:20 | ED_ITS ---
HPI - Chest Pain General Chief Complaint: Chest Pain Stated Complaint: CHEST PAIN Time Seen by Provider: 06/20/24 04:20 Source: patient and EMS Mode of arrival: EMS Limitations: no limitations History of Present Illness ED Provider: flo ANDREWS narrative: Patient's history of sleep apnea coronary artery disease nonobstructive by coronary CTA with moderate disease, hypertension, COPD with right-sided heart failure on Bumex and metolazone comes here for chest pain started yesterday at 14:00 EMS gave aspirin patient is supposed to be on 2 L oxygen and CPAP which she not using it for last 2- 3 months chest pain is diffuse more on the left side reproducible increases on deep inspiration also complaining of the back pain Related Data Home Medications ?Medication ?Instructions ?Recorded ?Confirmed allopurinol 100 mg tablet 100 mg PO DAILY 09/05/21 04/14/24 diltiazem HCl 360 mg capsule,24 360 mg PO DAILY 09/05/21 04/14/24 hr,extended release (Tiadylt ER) gemfibrozil 600 mg tablet 600 mg PO DAILY 09/05/21 04/14/24 loratadine 10 mg tablet (Claritin) 10 mg PO DAILY 09/05/21 04/14/24 metolazone 2.5 mg tablet 2.5 mg PO Q48H 09/05/21 04/14/24 omeprazole 20 mg capsule,delayed 20 mg PO DAILY 09/05/21 04/14/24 release pravastatin 40 mg tablet 40 mg PO DAILY 09/05/21 04/14/24 guaifenesin 600 mg tablet, 1,200 mg PO Q12H 05/10/22 04/14/24 extended release 12 hr (Mucinex) oxymetazoline 0.05 % nasal spray 1 spray intranasal Q12H 05/10/22 04/14/24 (Mucinex Sinus-Max) metformin 500 mg tablet,extended 250 mg PO DAILY 07/10/23 04/14/24 release 24 hr Previous Rx's ?Medication ?Instructions ?Recorded bumetanide 2 mg tablet 2 mg PO BID #180 tabs 12/19/23 prednisone 10 mg tablet 10 mg PO DIRECTED #50 tabs 03/17/24 ipratropium bromide 21 mcg (0.03 2 spray intranasal BID 90 days #90 04/09/24 %) nasal spray mL levofloxacin 750 mg tablet 750 mg PO DAILY #7 tabs 05/15/24 prednisone 20 mg tablet 40 mg (2 x 20 mg) PO DAILY #15 tabs 05/15/24 tramadol 50 mg tablet 50 mg PO Q6H PRN pain #20 tabs 06/20/24 Allergies Allergy/AdvReac Type Severity Reaction Status Date / Time mold [MOLD] Allergy Intermediate COUGHING, Verified 06/20/24 03:43 SINUS CONGESTION Penicillins [PENICILLINS] Allergy Intermediate REVERSE Verified 06/20/24 03:43 REACTION MAKES PT FEEL WORSE PMFSH Past Medical History Medical History CAD (coronary artery disease) PVC (premature ventricular contraction) Morbid obesity Dyslipidemia Type 2 diabetes mellitus Lymphedema Hypertension COPD (chronic obstructive pulmonary disease) Arthritis Surgical History History of hysterectomy History of knee replacement Family History Family History Mother Coronary artery disease Social History Social History Household Members: Significant Other Housing: Apartment Do you presently have visiting nurse or other home services: No Alcohol intake: never Patient Tobacco Use Status: Never used Tobacco Smoked in Last 30 Days: No e-Cigarette/Vaping Use: Never Used Second Hand Smoke Exposure: No Use of substances other than those prescribed or required for medical reasons: No Advance Directives: No Advance Directives Information Provided: Yes service: No Current occupational status: retired Physical Exam 2 Vital Signs: Vital Signs: Last Vital Signs Temp 97.9 F 06/20/24 05:26 Pulse 77 06/20/24 05:26 Resp 15 06/20/24 05:26 BP 128/61 06/20/24 05:26 Pulse Ox 92 06/20/24 05:26 O2 Del Method Room Air 06/20/24 05:26 BMI result Body Mass Index 48.6 Appearance: Alert. Oriented X3. No acute distress. Obese Eyes: PERRLA, No Nystagmus ENT: Pharynx normal. Oral Mucosa moist Neck: Normal inspection. Neck supple. CVS: Normal heart rate and rhythm. Pulses normal. Respiratory: No respiratory distress. Equal air entry bilateral, no wheezing/rales/rhonchi left chest wall tenderness Abdomen: Soft and nontender. Bowel sounds are present, no mass palpable, no CVA tenderness Skin: Skin warm and dry. Normal skin color. Normal skin turgor. Extremities: Trace lower extremity edema. No calf tenderness Neuro: Oriented X 3. No motor deficit. No sensory deficit.No cerebellar signs , cranial nerves II-XII intact Medications Administered Discontinued Medications Generic Name Dose Route Start Last Admin Trade Name Freq PRN Reason Stop Dose Admin Morphine Sulfate 4 mg 06/20/24 04:42 06/20/24 04:52 Morphine Sulfate 4 Mg/Ml Cartridge IVPUSH 06/20/24 04:43 4 mg ONCE ONE Administration Protocol Ondansetron HCl 4 mg 06/20/24 04:42 06/20/24 04:52 Ondansetron Hcl 4 Mg/2 Ml Vial IVPUSH 06/20/24 04:43 4 mg ONCE ONE Administration Medical Decision Making Medical Decision Making [facility] Narrative: Patient has atypical chest pain reproducible does have occasional cough which is mostly dry noncompliant to CPAP and oxygen chest x-ray showed patchy infiltrates normal WBC count unlikely significant pneumonia but will give antibiotics checked for the COVID patient advised to follow up with PCP Differential Diagnosis Differential Diagnoses: The differential diagnosis associated with the presentation includes Pneumonia/rib fracture/pleurisy/CHF/ACS Admission/Observation Consideration of admission/observation: Escalation of care including admission/observation considered Lab Data [facility] Lab Attestation statement: I reviewed the patient's lab results. 06/20/24 03:51 06/20/24 03:51 Labs: Lab Results 06/20/24 06/20/24 06/20/24 Range/Units 03:51 03:53 06:45 WBC 9.4 (4.8-10.8) X10*3/uL RBC 4.38 (4.20-5.50) X10*6/uL Hgb 14.2 (12.0-16.0) g/dl Hct 43.6 (37.0-47.0) % MCV 99.5 H (80.0-98.0) fL MCH 32.4 (27.0-33.0) pg MCHC 32.6 (31.0-35.0) g/dl RDW 14.6 (11.0-16.0) % Plt Count 200 (160-400) X10*3/uL MPV 10.4 (9.4-12.3) fL Immature Gran % (Auto) 0.6 H (0.0-0.4) % Neut % (Auto) 62.8 (45-73) % Lymph % (Auto) 21.7 (20-40) % [place] % (Auto) 10.6 (2-11) % Eos % (Auto) 3.7 (0-4) % Baso % (Auto) 0.6 (0-2) % Lymph # (Auto) 2.1 (1.2-4.9) X10*3/uL [place] # (Auto) 1.0 (0.1-1.2) X10*3/uL Eos # (Auto) 0.4 (0.0-0.4) X10*3/uL Baso # (Auto) 0.1 (0.0-0.2) X10*3/uL Abs Immat Gran (auto) 0.06 H (0.00-0.03) X10*3/uL Absolute Neuts (auto) 5.9 (2.0-8.3) x10*3/uL Absolute Nucleated RBC 0.000 (0.0-0.012) X10*3/uL Nucleated RBC % (auto) 0.0 (0.0-0.2) /100WBC PT 10.5 L (11.1-13.3) SEC INR 0.9 (0.9-1.1) Sodium 145 (135-145) mmol/L Potassium 4.0 (3.3-5.1) mmol/L Chloride 105 (96-108) mmol/L Carbon Dioxide 29 (22-29) mmol/L Anion Gap 15 (12-20) BUN 33 H (9-16) mg/dL Creatinine 1.03 (0.5-1.4) mg/dL Estim Creat Clear Calc 58.0 Estimated GFR 51 Random Glucose 103 (60-115) mg/dL Calcium 9.4 (8.4-10.2) mg/dL Total Bilirubin 0.3 (0.0-1.0) mg/dL AST 14 (5-31) U/L ALT 18 (0-31) U/L Alkaline Phosphatase 86 (39-117) U/L Troponin I High Sens 6.9 8.2 (<3.5-17.0) ng/L B-Natriuretic Peptide 67 (<100) pg/mL Total Protein 6.6 (6.5-8.0) g/dL Albumin 3.9 (3.5-5.0) g/dL Independent Interpretation I performed an independent interpretation of an: EKG Interpretation: Normal sinus rhythm heart rate 99 beats per minute normal intervals occasional PVCs no acute STT wave changes no acute ischemia Radiology Impression Discussion of test interpretation with radiology: I have reviewed the radiologist's reading. Radiologist Impression: XR/XR chest 1V IMPRESSION: Patchy opacities developed in the right upper lobe, left upper lobe and left lower lobe, possibly patchy infiltrates, cannot rule out underlying lung nodules. Please correlate with patient's clinical presentation. Consider correlation with follow-up CT scan chest, if not performed follow-up chest x-ray PA and lateral in one month recommended to ensure complete clearance and exclude underlying pathology.. 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 Prescriptions: New tramadol 50 mg tablet 50 mg PO Q6H PRN (Reason: pain) Qty: 20 0RF No Action bumetanide 2 mg tablet 2 mg PO BID Qty: 180 3RF ipratropium bromide 21 mcg (0.03 %) spray,non-aerosol 2 spray intranasal BID 90 Days Qty: 90 1RF levofloxacin 750 mg tablet 750 mg PO DAILY Qty: 7 0RF prednisone 20 mg tablet 40 mg PO DAILY Qty: 15 0RF Rx Instructions: 40 mg x 5 days, 20 mg x 5 days metolazone 2.5 mg tablet 2.5 mg PO Q48H pravastatin 40 mg tablet 40 mg PO DAILY diltiazem HCl [Tiadylt ER] 360 mg capsule,extended release 24 hr 360 mg PO DAILY allopurinol 100 mg tablet 100 mg PO DAILY gemfibrozil 600 mg tablet 600 mg PO DAILY omeprazole 20 mg capsule,delayed release(DR/EC) 20 mg PO DAILY loratadine [Claritin] 10 mg Tablet 10 mg PO DAILY metformin 500 mg tablet extended release 24 hr 250 mg PO DAILY oxymetazoline [Mucinex Sinus-Max] 0.05 % [place],Non-Aerosol 1 spray INTRANASAL Q12H guaifenesin [Mucinex] 600 mg Tablet Extended Release 12hr 1,200 mg PO Q12H prednisone 10 mg tablet 10 mg PO DIRECTED Qty: 50 0RF Rx Instructions: see taper instructions Take 4 pills daily for 5 days, then go down by 1 pill every 5 days; 20 days 50 tabs 0RF Print Language: Bangladeshi
[2024-06-20 04:22] LABS: Troponin-I High Sensitivity 6.9 ng/L (<3.5-17.0)
--- NOTE | 2024-06-20 04:27 | PC.NURSE ---
20g arsenio COHN in [facility]
[2024-06-20] MEDS: ondansetron HCL 4 MG/2 ML VIAL IVPUSH (04:52)
[2024-06-20] MEDS: Morphine Sulfate 4 MG/ML CARTRIDGE IVPUSH (04:52)
[2024-06-20 05:12] LABS: B Type Natriuretic Peptide 67 pg/mL (<100)
[2024-06-20 05:26] VITALS: BP 128/61; PULSE 77; RESP 15; TEMP 36.6; O2SAT 92
[2024-06-20 07:13] LABS: Troponin-I High Sensitivity 8.2 ng/L (<3.5-17.0)
--- NOTE | 2024-06-20 07:35 | PC.NURSE ---
No cultures needed per MD
[2024-06-20 07:38] VITALS: BP 132/60; PULSE 77; RESP 20; TEMP 36.5; O2SAT 91
[2024-06-20] MEDS: cefTRIAXone sodium 1 GM in 0.9 % Sodium Chloride 50 ML IV (07:54)
[2024-06-20 08:22] LABS: Influenza A PCR NEGATIVE (Negative); Influenza B PCR NEGATIVE (Negative); Resp Syncy Virus RNA Qual PCR NEGATIVE (Negative); SARS COV2 PCR INHOUSE NEGATIVE (Negative)
[2024-06-20 08:46] VITALS: BP 139/65; PULSE 74; RESP 19; TEMP 36.6; O2SAT 93
== END 2024-06-20 08:47 | disposition home or self-care (01) ==
PROVIDERS: Emergency Provider Internal Medicine
DX: R07.89 Other chest pain (principal); J44.9 Chronic obstructive pulmonary disease, unspecified; E11.9 Type 2 diabetes mellitus without complications; I10 Essential (primary) hypertension; E78.5 Hyperlipidemia, unspecified; E66.9 Obesity, unspecified; Z68.42 Body mass index [BMI] 45.0-49.9, adult; Z91.199 Patient's noncompliance with other medical treatment and regimen due to unspecified reason; Z79.899 Other long term (current) drug therapy; Z79.84 Long term (current) use of oral hypoglycemic drugs; Z79.02 Long term (current) use of antithrombotics/antiplatelets
CPT/HCPCS: 0241U; 36415; 71045; 80053; 83880; 84484; 85025; 85610; 93005; 99285; J0696; J2270; J2405

== ENCOUNTER 2024-06-21 08:17 | Inpatient (IN) | payer MEDICARE, SELFPAY ==
[2024-06-21] VITALS (8 sets, daily range): BP systolic 115–183; BP diastolic 65–90; PULSE 86–104; RESP 16–23; TEMP 36.7–37.2; O2SAT 88–92; BMI 33.1; BMI 49.6
--- NOTE | ~2024-06-21 | CT_ITS ---
EXAMINATION: CT CHEST WITH CONTRAST CLINICAL INFORMATION: Cough, shortness of breath and rib pain. COMPARISON: Chest CT from 04/03/2024 and CXR from 06/20/2024. TECHNIQUE: Multidetector volumetric CT imaging of the chest was obtained after the administration of 65 mL of Omnipaque 350 intravenous contrast without immediate adverse reactions. Axial MIP volume rendering provided. Sagittal and coronal reformatted images were obtained. This CT examination was performed using dose optimization techniques as appropriate, variously including the following: *Automated exposure control *Adjustment of mA and/or kV according to patient size (this includes techniques or standardized protocols for targeted exams where dose is matched to indication/reason for exam; i.e. extremities or head) *Use of iterative reconstruction technique DLP: 709 mGy-cm FINDINGS: LUNGS AND PLEURA: Trachea and central airways are widely patent and normal in caliber. Scattered linear opacities of mild atelectasis in both lungs. No airspace disease. No pleural effusion or pneumothorax. No pulmonary nodularity or mass. CARDIOVASCULAR: Mild cardiomegaly. No pericardial effusion. Pulmonary arteries are chronically mildly enlarged, possible manifestation of arterial hypertension. Atherosclerosis of the thoracic aorta. Difficult to provide accurate size measurement of the aorta due to mild motion on images. The ascending thoracic aorta is approximately 4 cm maximum dimension. CORONARY ARTERY CALCIFICATION: Multivessel coronary artery atherosclerotic calcification is present. MEDIASTINUM AND LOWER NECK: No mediastinal mass. The esophagus and thyroid gland are unremarkable. LYMPHATICS: No pathologic sized lymph nodes. UPPER ABDOMEN: 1.6 cm and 0.7 cm simple cysts in the left lobe of liver. There is a 1.9 cm lobulated cyst of the spleen. No suspicious lesion. Simple cysts of the left kidney, as well. No renal imaging follow-up is recommended for simple cysts. Adrenal glands are unremarkable. SKELETAL AND CHEST WALL: Chondrocalcinosis and multilevel degenerative arthropathy of the thoracic spine. No acute or suspicious osseous abnormality. CT/CT chest w IV con IMPRESSION: * No evidence of pulmonary edema, pneumonia or pleural effusion. * Scattered linear opacities of mild atelectasis in both lungs. * Cardiomegaly and atherosclerotic disease of coronary arteries. The pulmonary arteries are chronically mildly enlarged, and this could be a manifestation of pulmonary arterial hypertension.
--- NOTE | 2024-06-21 08:22 | ED.ABDPAIN ---
HPI - Abdominal Pain General Chief Complaint: Nausea/Vomiting/Diarrhea Stated Complaint: nausea, abd pain Time Seen by Provider: 06/21/24 08:22 Source: patient Mode of arrival: ambulatory Limitations: no limitations History of Present Illness ED Provider: Josi CRUZ HPI narrative: This is an 84-year-old female history of lymphedema hypertension, obesity, dysphagia, heart failure, unstable angina, CAD, COPD presenting to the emergency department with complaints of increasing nausea since yesterday as well as difficulty breathing. She was recently in the ED on 06/20/2024 for concerns of rib pain and was d/c with pain medications. She has been unable to take the medications due to nausea and has had increased sputum production this morning. Pt explains her symptoms are the same as yesterday, with associated headache, dizziness, diffuse abdominal pain. Denies cp, vomiting, diarrhea, bowel/urinary changes. Related Data Home Medications ?Medication ?Instructions ?Recorded ?Confirmed allopurinol 100 mg tablet 100 mg PO DAILY 09/05/21 04/14/24 diltiazem HCl 360 mg capsule,24 360 mg PO DAILY 09/05/21 04/14/24 hr,extended release (Tiadylt ER) gemfibrozil 600 mg tablet 600 mg PO DAILY 09/05/21 04/14/24 loratadine 10 mg tablet (Claritin) 10 mg PO DAILY 09/05/21 04/14/24 metolazone 2.5 mg tablet 2.5 mg PO Q48H 09/05/21 04/14/24 omeprazole 20 mg capsule,delayed 20 mg PO DAILY 09/05/21 04/14/24 release pravastatin 40 mg tablet 40 mg PO DAILY 09/05/21 04/14/24 guaifenesin 600 mg tablet, 1,200 mg PO Q12H 05/10/22 04/14/24 extended release 12 hr (Mucinex) oxymetazoline 0.05 % nasal spray 1 spray intranasal Q12H 05/10/22 04/14/24 (Mucinex Sinus-Max) metformin 500 mg tablet,extended 250 mg PO DAILY 07/10/23 04/14/24 release 24 hr Previous Rx's ?Medication ?Instructions ?Recorded bumetanide 2 mg tablet 2 mg PO BID #180 tabs 12/19/23 prednisone 10 mg tablet 10 mg PO DIRECTED #50 tabs 03/17/24 ipratropium bromide 21 mcg (0.03 2 spray intranasal BID 90 days #90 04/09/24 %) nasal spray mL levofloxacin 750 mg tablet 750 mg PO DAILY #7 tabs 05/15/24 prednisone 20 mg tablet 40 mg (2 x 20 mg) PO DAILY #15 tabs 05/15/24 cefuroxime axetil 500 mg tablet 500 mg PO BID 10 days #20 tabs 06/20/24 doxycycline hyclate 100 mg tablet 100 mg PO BID #20 tabs 06/20/24 tramadol 50 mg tablet 50 mg PO Q6H PRN pain #20 tabs 06/20/24 Allergies Allergy/AdvReac Type Severity Reaction Status Date / Time mold [MOLD] Allergy Intermediate COUGHING, Verified 06/21/24 08:27 SINUS CONGESTION Penicillins [PENICILLINS] Allergy Intermediate REVERSE Verified 06/21/24 08:27 REACTION MAKES PT FEEL WORSE Review of Systems Review of Systems Yes all other systems are reviewed and are negative [facility] Past Medical History Attestation statement: The following information was validated with the patient. Source: old records reviewed and nursing notes reviewed Medical History CAD (coronary artery disease) PVC (premature ventricular contraction) Morbid obesity Dyslipidemia Type 2 diabetes mellitus Lymphedema Hypertension COPD (chronic obstructive pulmonary disease) Arthritis Surgical History History of hysterectomy History of knee replacement Family History Family History Mother Coronary artery disease Social History Social History Household Members: Significant Other Housing: Apartment Do you presently have visiting nurse or other home services: No Alcohol intake: never Patient Tobacco Use Status: Never used Tobacco e-Cigarette/Vaping Use: Never Used Second Hand Smoke Exposure: No Advance Directives: Yes Advance Directives on File: Yes Advance Directives Date on File: 05/11/22 service: No Current occupational status: retired Physical Exam ED Vital Signs: Vital Signs - 24 hr 06/21/24 08:26 06/21/24 09:24 06/21/24 10:19 Temperature 98.1 F Pulse Rate 86 86 100 Respiratory Rate 18 23 H 23 H Blood Pressure 115/65 183/82 H Pulse Oximetry 92 92 Oxygen Delivery Method Room Air Blow By Oxygen Flow Rate 2 BMI result Body Mass Index 33.1 vss Appearance: Alert.? Oriented X3.? + mild- mod acute distress.? Head: Normocephalic, atraumatic, no step-offs or deformities Eyes: Pupils equal, round and reactive to light.? ENT: Pharynx normal.? Neck: Normal inspection.? Neck supple.? CVS: Normal heart rate and rhythm.? Pulses normal.? Respiratory: + mild- mod respiratory distress.? Breath sounds normal.?+ constricted diminished lung tuttle bilaterally w/ increased respiratory effort Abdomen: Soft. + diffuse ttp throughout, worse in RUQ Skin: Skin warm and dry.? Normal skin color.? Normal skin turgor.? Extremities: No calf ttp. 5/5 strength to bilateral upper and lower extremities. + bilateral LE edema Neuro: Oriented X 3.? No motor deficit.? No sensory deficit. CN 2-12 intact Course Reevaluation(s) Reevaluation #1: Patient w/ labored breathing, 87% w/ just speaking. At this time infection suspected blood cultures, lactic and atbx ordered. Will hold on IVF due to patients hx of CHF. Patient now has leukocytosis with left shift. Chemistry pending. Blood cultures, lactic at pending. Patient will be placed on 2 L nasal cannula. Time: 09:03 Reevaluation #2: CT still pending i do suspect pna. Patient drooped to 83% nursing increased NC to 2.5 L per verbal order. Patient to be admitted to the hospital at this time for PNA and hypoxia. Time: 11:00 Reevaluation #3: Just informed by nursing patient droped to 90 % on 3L of oxymask. Time: 11:07 Medical Decision Making Medical Decision Making [facility] Narrative: 24 84-year-old female presents nausea and abdominal pain for the past few days worsening. Physical exam - diffuse abdominal pain, worse in RUQ, constricted airway History and physical exam concerning for pna vs CHF exacerbation vs chornic lung disease. Unlikely rib fractures, PE, CO. Plan - imaging Differential Diagnosis Differential Diagnoses: The differential diagnosis associated with the presentation includes History and physical exam concerning for pna vs CHF exacerbation vs chornic lung disease. Unlikely rib fractures, PE, CO. Admission/Observation Consideration of admission/observation: Escalation of care including admission/observation considered Possible Consult Healthcare Provider Management of the patient was discussed with: Hospitalist Lab Data MDM Lab Attestation statement: I reviewed the patient's lab results. 06/21/24 08:55 06/21/24 08:55 Labs: Lab Results 06/21/24 06/21/24 Range/Units 08:55 09:30 WBC 12.1 H (4.8-10.8) X10*3/uL RBC 4.14 L (4.20-5.50) X10*6/uL Hgb 13.5 (12.0-16.0) g/dl Hct 42.1 (37.0-47.0) % MCV 101.7 H (80.0-98.0) fL MCH 32.6 (27.0-33.0) pg MCHC 32.1 (31.0-35.0) g/dl RDW 14.6 (11.0-16.0) % Plt Count 181 (160-400) X10*3/uL MPV 10.4 (9.4-12.3) fL Immature Gran % (Auto) 0.5 H (0.0-0.4) % Neut % (Auto) 82.8 H (45-73) % Lymph % (Auto) 6.4 L (20-40) % [place] % (Auto) 8.2 (2-11) % Eos % (Auto) 1.7 (0-4) % Baso % (Auto) 0.4 (0-2) % Lymph # (Auto) 0.8 L (1.2-4.9) X10*3/uL [place] # (Auto) 1.0 (0.1-1.2) X10*3/uL Eos # (Auto) 0.2 (0.0-0.4) X10*3/uL Baso # (Auto) 0.1 (0.0-0.2) X10*3/uL Abs Immat Gran (auto) 0.06 H (0.00-0.03) X10*3/uL Absolute Neuts (auto) 10.0 H (2.0-8.3) x10*3/uL Absolute Nucleated RBC 0.000 (0.0-0.012) X10*3/uL Nucleated RBC % (auto) 0.0 (0.0-0.2) /100WBC PT 11.1 (11.1-13.3) SEC INR 0.9 (0.9-1.1) VBG pH 7.49 H (7.32-7.43) VBG pCO2 40 mmHg VBG pO2 73 mmHg VBG HCO3 31 H (22-26) mmol/L VBG O2 Saturation 97.0 % VBG Base Excess 7.8 mmol/L Sodium 144 (135-145) mmol/L Potassium 3.8 (3.3-5.1) mmol/L Chloride 107 (96-108) mmol/L Carbon Dioxide 30 H (22-29) mmol/L Anion Gap 11 L (12-20) BUN 20 H (9-16) mg/dL Creatinine 0.85 (0.5-1.4) mg/dL Estim Creat Clear Calc 56.6 Estimated GFR > 60 Random Glucose 114 (60-115) mg/dL Lactic Acid 0.8 (0.5-2.0) mmol/L Calcium 9.3 (8.4-10.2) mg/dL Magnesium 2.3 (1.6-2.6) mg/dL Total Bilirubin 0.4 (0.0-1.0) mg/dL AST 14 (5-31) U/L ALT 14 (0-31) U/L Alkaline Phosphatase 78 (39-117) U/L B-Natriuretic Peptide 116 H (<100) pg/mL Total Protein 6.4 L (6.5-8.0) g/dL Albumin 3.7 (3.5-5.0) g/dL Lipase 32 (8-78) U/L Influenza Type A (DUC) Negative (Negative) Influenza Type B (DUC) Negative (Negative) Influenza A & B Note See Note Independent Interpretation I performed an independent interpretation of an: Plain X-Ray Radiology Impression Discussion of test interpretation with radiology: I have reviewed the radiologist's reading. External Record Review External record reviewed: Inpatient record, Office record, Outpatient record, Prior outpatient labs, Prior outpatient radiology, Primary care record and Outside ED record Medications Administered Discontinued Medications Generic Name Dose Route Start Last Admin Trade Name Freq PRN Reason Stop Dose Admin Albuterol Sulfate 5 mg/ 0 mg 06/21/24 09:16 06/21/24 09:24 Albuterol/Ipratropium 3 ml INHALE 06/21/24 09:17 7.5 each ONCE ONE Administration Ceftriaxone Sodium 1 gm/ 50 mls @ 100 mls/hr 06/21/24 09:00 06/21/24 11:00 Sodium Chloride IV 06/21/24 09:29 Infused ONCE ONE Infusion Azithromycin 500 mg/ Sodium 250 mls @ 125 mls/hr 06/21/24 09:00 06/21/24 10:57 Chloride IV 06/21/24 10:59 125 mls/hr ONCE ONE Administration Iohexol 65 ml 06/21/24 10:33 06/21/24 10:33 Iohexol 350 Mg/Ml 100 Ml Infus..Btl IV 06/21/24 10:34 65 ml ONCE ONE Administration Methylprednisolone Sodium Succinate 125 mg 06/21/24 08:47 06/21/24 09:05 Methylprednisolone Sod Succ 125 Mg/2 Ml Vial IVPUSH 06/21/24 08:48 125 mg ONCE ONE Administration Morphine Sulfate 4 mg 06/21/24 08:47 06/21/24 09:05 Morphine Sulfate 4 Mg/Ml Cartridge IVPUSH 06/21/24 08:48 4 mg ONCE ONE Administration Protocol Ondansetron HCl 4 mg 06/21/24 08:47 06/21/24 09:05 Ondansetron Hcl 4 Mg/2 Ml Vial IVPUSH 06/21/24 08:48 4 mg ONCE ONE Administration Critical Care Time Critical Care Time Critical Care Time: Yes Total Critical Care Time: 35 Attestation: I attest to this time spent taking care of the patient, obtaining history, physical, reviewing labs, imaging, speaking to my attending, specialist or hospitalist. Discharge Plan Discharge Clinical Impression: Pneumonia Patient Disposition: Still a Patient Prescriptions: No Action bumetanide 2 mg tablet 2 mg PO BID Qty: 180 3RF ipratropium bromide 21 mcg (0.03 %) spray,non-aerosol 2 spray intranasal BID 90 Days Qty: 90 1RF levofloxacin 750 mg tablet 750 mg PO DAILY Qty: 7 0RF prednisone 20 mg tablet 40 mg PO DAILY Qty: 15 0RF Rx Instructions: 40 mg x 5 days, 20 mg x 5 days metolazone 2.5 mg tablet 2.5 mg PO Q48H pravastatin 40 mg tablet 40 mg PO DAILY diltiazem HCl [Tiadylt ER] 360 mg capsule,extended release 24 hr 360 mg PO DAILY allopurinol 100 mg tablet 100 mg PO DAILY gemfibrozil 600 mg tablet 600 mg PO DAILY omeprazole 20 mg capsule,delayed release(DR/EC) 20 mg PO DAILY loratadine [Claritin] 10 mg Tablet 10 mg PO DAILY metformin 500 mg tablet extended release 24 hr 250 mg PO DAILY oxymetazoline [Mucinex Sinus-Max] 0.05 % [place],Non-Aerosol 1 spray INTRANASAL Q12H guaifenesin [Mucinex] 600 mg Tablet Extended Release 12hr 1,200 mg PO Q12H tramadol 50 mg tablet 50 mg PO Q6H PRN (Reason: pain) Qty: 20 0RF cefuroxime axetil 500 mg tablet 500 mg PO BID 10 Days Qty: 20 0RF doxycycline hyclate 100 mg tablet 100 mg PO BID Qty: 20 0RF prednisone 10 mg tablet 10 mg PO DIRECTED Qty: 50 0RF Rx Instructions: see taper instructions Take 4 pills daily for 5 days, then go down by 1 pill every 5 days; 20 days 50 tabs 0RF Print Language: Uzbek
[2024-06-21 09:00] LABS: MANUAL DIFF FLAG NO
[2024-06-21 09:01] LABS: Basophils Absolute Auto 0.1 X10*3/uL (0.0-0.2); Basophils Percent Auto 0.4 % (0-2); Eosinophils Absolute Auto 0.2 X10*3/uL (0.0-0.4); Eosinophils Percent Auto 1.7 % (0-4); Hematocrit 42.1 % (37.0-47.0); Hemoglobin 13.5 g/dl (12.0-16.0); Imm Gran Abs Auto 0.06 X10*3/uL (0.00-0.03); Imm Gran Pct Auto 0.5 % (0.0-0.4); Lymphocytes Absolute Auto 0.8 X10*3/uL (1.2-4.9); Lymphocytes Percent Auto 6.4 % (20-40); Mean Corpuscular HGB Conc 32.1 g/dl (31.0-35.0); Mean Corpuscular Hemoglobin 32.6 pg (27.0-33.0); Mean Corpuscular Volume 101.7 fL (80.0-98.0); Mean Platelet Volume 10.4 fL (9.4-12.3); Monocytes Percent Auto 8.2 % (2-11); Neutrophils Percent Auto 82.8 % (45-73); Platelet Count 181 X10*3/uL (160-400); Red Blood Count 4.14 X10*6/uL (4.20-5.50); Red Cell Distribution Width 14.6 % (11.0-16.0); White Blood Count 12.1 X10*3/uL (4.8-10.8)
[2024-06-21] MEDS: methylPREDNISolone Sod Succ 125 MG/2 ML VIAL IVPUSH (09:05)
[2024-06-21] MEDS: ondansetron HCL 4 MG/2 ML VIAL IVPUSH (09:05)
[2024-06-21] MEDS: Morphine Sulfate 4 MG/ML CARTRIDGE IVPUSH (09:05)
[2024-06-21 09:09] LABS: INTERNATIONAL NORM RATIO 0.9 (0.9-1.1); Prothrombin Time 11.1 SEC (11.1-13.3)
--- NOTE | 2024-06-21 09:09 | ECG_ITS ---
Test Reason : shortness of breath Blood Pressure : / mmHG Vent. Rate : 097 BPM Atrial Rate : 097 BPM P-R Int : 172 ms QRS Dur : 090 ms QT Int : 390 ms P-R-T Axes : 045 -12 085 degrees QTc Int : 495 ms Sinus rhythm with occasional Premature ventricular complexes Minimal voltage criteria for LVH, may be normal variant ( R in aVL ) Abnormal ECG When compared with ECG of 20-JUN-2024 03:26, Inverted T waves have replaced nonspecific T wave abnormality in Lateral leads Referred By: Luis Vides Electronically Signed By:NEGRITO CABALLERO
[2024-06-21 09:14] LABS: IDNOW Serial# 08D9AD1C; Influenza A Negative (Negative); Influenza B2 Negative (Negative)
[2024-06-21 09:18] LABS: Alanine Aminotransferase 14 U/L (0-31); Albumin Level 3.7 g/dL (3.5-5.0); Alkaline Phosphatase 78 U/L (39-117); Anion Gap 11 (12-20); Aspartate Amino Transferase 14 U/L (5-31); Bilirubin Total 0.4 mg/dL (0.0-1.0); Blood Urea Nitrogen 20 mg/dL (9-16); Calcium 9.3 mg/dL (8.4-10.2); Carbon Dioxide 30 mmol/L (22-29); Chloride 107 mmol/L (96-108); Creatinine Clr Calc Pharmacy 56.6; Estimated Glomerular Filt Rate > 60; Glucose Random 114 mg/dL (60-115); Lipase 32 U/L (8-78); Magnesium 2.3 mg/dL (1.6-2.6); Potassium 3.8 mmol/L (3.3-5.1); Sodium 144 mmol/L (135-145); Total Protein 6.4 g/dL (6.5-8.0)
[2024-06-21 09:23] LABS: B Type Natriuretic Peptide 116 pg/mL (<100)
[2024-06-21] MEDS: Albuterol Sulfate 5 MG, Albuterol/Iprat 2.5/0.5MG 3 ML 3 ML INHALE (09:24)
--- NOTE | 2024-06-21 09:28 | PC.NURSE ---
IV established, labs obtained and sent. patient complaining of nausea and abdominal pain today. at baseline, patient should be wearing 2L nasal cannula however patient does not like the feeling of the cannula. at this time, patient is receiving breathing treatment, however patient was placed on oxymask w/ positive effect. blood cultures being obtained at this time, awaiting CT scan
[2024-06-21 09:38] LABS: VBG Base Excess 7.8 mmol/L; VBG HCO3 31 mmol/L (22-26); VBG pCO2 40 mmHg; VBG pH 7.49 (7.32-7.43); VBG pO2 73 mmHg
[2024-06-21 09:38] LABS: Venous Blood Gas Refer to POC result
[2024-06-21 09:48] LABS: Lactic Acid 0.8 mmol/L (0.5-2.0)
[2024-06-21] MEDS: cefTRIAXone sodium 1 GM in 0.9 % Sodium Chloride 50 ML IV (09:54)
[2024-06-21] MEDS: iohexoL 350 MG/ML 100 ML INFUS..BTL 65 ML IV (10:33)
[2024-06-21] MEDS: Azithromycin 500 MG in 0.9 % Sodium Chloride 250 ML 125 MG IV (10:57)
[2024-06-21 11:23] LABS: Adenovirus PCR Not Detected (Not Detect.); Bordetella parapertussis PCR Not Detected (Not Detect.); Bordetella pertussis PCR Not Detected (Not Detect.); Chlamydia pneumoniae PCR Not Detected (Not Detect.); Coronavirus 229E PCR Not Detected (Not Detect.); Coronavirus HKU1 PCR Not Detected (Not Detect.); Coronavirus NL63 PCR Not Detected (Not Detect.); Coronavirus OC43 PCR Not Detected (Not Detect.); Human metapneumovirus PCR Not Detected (Not Detect.); Influenza A PCR Not Detected (Not Detect.); Influenza B PCR Not Detected (Not Detect.); Mycoplasma pneumoniae PCR Not Detected (Not Detect.); Parainfluenza 1 PCR Not Detected (Not Detect.); Parainfluenza 2 PCR Not Detected (Not Detect.); Parainfluenza 3 PCR Not Detected (Not Detect.); Parainfluenza 4 PCR Not Detected (Not Detect.); RSV PCR Not Detected (Not Detect.); Rhino/Enterovirus PCR Not Detected (Not Detect.)
[2024-06-21 11:51] LABS: SARS-CoV-2 PCR Not Detected (Not Detect.)
--- NOTE | 2024-06-21 12:10 | PM.IMHP ---
History of Present Illness Date of Service: 06/21/24 Attending physician on admission: Bandar Gifford Chief Complaint: weakness, cough 84-year-old female with history of [id number] type 2 diabetes, lymphedema, hypertension, COPD with chronic hypoxemic respiratory failure noncompliant with supplemental O2, MAGAN not compliant with CPAP, coronary artery disease, pulmonary hypertension, PVCs who is morbidly obese with BMI greater than 49 presented to the ED for evaluation of nausea and vomiting, lightheadedness, generalized weakness and cough with productive yellow sputum ongoing for 3-4 days. She states she has been so weak she has been having difficulty ambulating. At baseline she uses a cane only on stairs and outside of the house. She was seen in the ED yesterday and was discharged on tramadol for possible costochondritis. However symptoms worsened overnight. No fevers, chills, abdominal pain, diarrhea, melena, hematochezia, sore throat, congestion, shortness of breath, wheezing, syncope, chest pain. No one sick at home. No recent travel. On admission, patient hypertensive to 183/82 but has not taken any of her home medications today. She is mildly tachycardic to 100 and tachypneic to 23. She was noted to be hypoxic to 83% on 2 L supplemental O2 and was increased to 4 L via nasal cannula now maintaining oximetry 90-92%. She has a leukocytosis of 12.1. Renal function baseline, electrolyte levels normal except for CO2 30. VBG shows pH 7.49, pCO2 40, bicarb 31. BNP 116. Negative for COVID-19, RSV, influenza and full RPP is also negative. On my review, chest CT appears to have patchy infiltrates in the left lower lobe as well as atelectasis however full radiology read shows no evidence of pulmonary edema, pneumonia or effusions which shows scattered linear opacities of mild atelectasis in both lungs as well as cardiomegaly and atherosclerotic disease of the coronary arteries pulmonary arteries are chronically enlarged possibly related to pulmonary hypertension. She does have a history of Pseudomonas pneumonia on sputum culture. In the ED, has received 1 g ceftriaxone, azithromycin, 125 mg methylprednisolone, ondansetron, 4 mg morphine and DuoNeb. Review of Systems Review of Systems: Yes all other systems are reviewed and are negative [facility] Medical History Right heart failure Chronic respiratory failure with hypoxia and hypercapnia Obstructive sleep apnea CAD (coronary artery disease) PVC (premature ventricular contraction) Morbid obesity Dyslipidemia Type 2 diabetes mellitus Lymphedema Hypertension COPD (chronic obstructive pulmonary disease) Arthritis Family History Mother Coronary artery disease Surgical History History of hysterectomy History of knee replacement Social History Household Members: Significant Other Housing: Apartment Do you presently have visiting nurse or other home services: No Alcohol intake: never Patient Tobacco Use Status: Never used Tobacco e-Cigarette/Vaping Use: Never Used Second Hand Smoke Exposure: No Advance Directives: Yes Advance Directives on File: Yes Advance Directives Date on File: 05/11/22 service: No Current occupational status: retired Meds Allergies Allergy/AdvReac Type Severity Reaction Status Date / Time mold [MOLD] Allergy Intermediate COUGHING, Verified 06/21/24 08:27 SINUS CONGESTION Penicillins [PENICILLINS] Allergy Intermediate REVERSE Verified 06/21/24 08:27 REACTION MAKES PT FEEL WORSE Active Medications: Current Medications Acetaminophen (Acetaminophen 325 Mg Tablet) 650 mg PO Q6H PRN PRN Reason: Pain, Mild (Pain Scale 1-3), fever or headache Albuterol/Ipratropium (Albuterol/Iprat 2.5/0.5mg 3 Ml Ampul.Neb) 3 ml INHALE RQ4H WHILE AWAKE [facility] Calcium Carbonate (Calcium Carbonate 750 Mg Tab.Chew) 750 mg PO Q4H PRN PRN Reason: Heartburn Diltiazem HCl (Diltiazem Hcl Cd 180 Mg Cap.Er.24h) 360 mg PO DAILY KIMMIE; Protocol Enoxaparin Sodium (Enoxaparin Sodium 40 Mg/0.4 Ml Syringe) 40 mg SUBCUT Q24H KIMMIE Glucose (Glucose Gel 15 Gm Gel..Gram.) 15 gm PO Q15M PRN; Protocol PRN Reason: per Hypoglycemia Standing Ord. Cefepime HCl 2 gm/ Sodium (Chloride) 50 mls @ 100 mls/hr IV Q8H KIMMIE Dextrose (D10) 250 mls @ 750 mls/hr IV Q15M PRN; Protocol PRN Reason: per Hypoglycemia Standing Ord. Insulin Human Lispro (Insulin Lispro 100 Unit/Ml 3 Ml Vial) 0 unit SUBCUT QIDACHS [facility]; Protocol Magnesium Hydroxide (Milk Of Magnesia 30 Ml Oral.Susp) 30 ml PO DAILY PRN PRN Reason: Constipation Melatonin (Melatonin 3 Mg Tablet) 6 mg PO BEDTIME PRN PRN Reason: Insomnia Methylprednisolone Sodium Succinate (Methylprednisolone Sod Succ 40 Mg/Ml Vial) 40 mg IVPUSH Q12H KIMMIE Ondansetron HCl (Ondansetron Hcl 4 Mg/2 Ml Vial) 4 mg IVPUSH Q8H PRN PRN Reason: Nausea and Vomiting Sodium Chloride (0.9 % Sodium Chloride Flush 3 Ml Syringe) 3 ml IVFLUSH QSHIFT [facility] Home Medications ?Medication ?Instructions ?Recorded ?Confirmed ?Last Taken ?Type diltiazem HCl 360 mg capsule,24 360 mg PO DAILY 09/05/21 06/21/24 09/12/23 History hr,extended release (Tiadylt ER) gemfibrozil 600 mg tablet 600 mg PO DAILY 09/05/21 06/21/24 05/10/22 History omeprazole 20 mg capsule,delayed 20 mg PO DAILY@0630 09/05/21 06/21/24 09/12/23 History release pravastatin 40 mg tablet 40 mg PO DAILY 09/05/21 06/21/24 05/10/22 History guaifenesin 600 mg tablet, 600 mg PO Q12H 05/10/22 06/21/24 Unknown History extended release 12 hr (Mucinex) metformin 500 mg tablet,extended 500 mg PO DAILY 07/10/23 06/21/24 Unknown History release 24 hr ciprofloxacin HCl 0.3 % eye drops 2 drp ophthalmic (eye) TID 06/21/24 06/21/24 Unknown History clotrimazole-betamethasone 1 1 appl topical BID PRN fungal 06/21/24 06/21/24 Unknown History %-0.05 % topical cream infection furosemide 40 mg tablet 80 mg PO DAILY 06/21/24 06/21/24 Unknown History gabapentin 300 mg capsule 300 mg PO BEDTIME 06/21/24 06/21/24 Unknown History glucosamine sulfate 500 mg tablet 500 mg PO DAILY 06/21/24 06/21/24 Unknown History (Glucosamine) meloxicam 15 mg tablet 15 mg PO DAILY 06/21/24 06/21/24 Unknown History Physical Exam Vital Signs and Narrative: Vital Signs: Last Vital Signs Temp 98.1 F 06/21/24 08:26 Pulse 100 06/21/24 10:19 Resp 23 H 06/21/24 10:19 BP 183/82 H 06/21/24 10:19 Pulse Ox 92 06/21/24 10:19 O2 Del Method Blow By 06/21/24 10:19 O2 Flow Rate 2 06/21/24 10:19 BMI result Body Mass Index 33.1 Constitutional - Awake and Alert, No apparent distress Eyes - PERRLA, EOMI Cardiovascular - S1S2, RRR, No edema Respiratory - Normal lung expansion, Normal respiratory effort, No respiratory distress on 4L supplemental O2, scattered bilateral wheezing Gastrointestinal - NT / ND; +BS; No rebound or guarding Extremities - no calf tenderness bilaterally, no swelling Skin - Warm/Dry Neurological - Alert & oriented x3 Psychological - Appropriate affect Results Labs 06/21/24 08:55 06/21/24 08:55 Labs: Laboratory Results - last 24 hr 06/21/24 06/21/24 08:55 09:30 MCV 101.7 H MCH 32.6 MCHC 32.1 RDW 14.6 Plt Count 181 MPV 10.4 Immature Gran % (Auto) 0.5 H Neut % (Auto) 82.8 H Lymph % (Auto) 6.4 L [place] % (Auto) 8.2 Eos % (Auto) 1.7 Baso % (Auto) 0.4 Lymph # (Auto) 0.8 L [place] # (Auto) 1.0 Eos # (Auto) 0.2 Baso # (Auto) 0.1 Abs Immat Gran (auto) 0.06 H Absolute Neuts (auto) 10.0 H Absolute Nucleated RBC 0.000 Nucleated RBC % (auto) 0.0 PT 11.1 INR 0.9 VBG pH 7.49 H VBG pCO2 40 VBG pO2 73 VBG HCO3 31 H VBG O2 Saturation 97.0 VBG Base Excess 7.8 Anion Gap 11 L Estim Creat Clear Calc 56.6 Estimated GFR > 60 Random Glucose 114 Lactic Acid 0.8 Calcium 9.3 Magnesium 2.3 Total Bilirubin 0.4 AST 14 ALT 14 Alkaline Phosphatase 78 B-Natriuretic Peptide 116 H Total Protein 6.4 L Albumin 3.7 Lipase 32 Respiratory Panel Da Silva See Note Adenovirus (Rapid PCR) Not Detected B.pert (TEM-PCR) Not Detected B.parapertussis DNA PCR Not Detected C. pneumoniae DNA (PCR) Not Detected Coronavirus OC43 (PCR) Not Detected Coronavirus HKU1 (PCR) Not Detected Coronavirus 229E (PCR) Not Detected Coronavirus NL63 (PCR) Not Detected Human Metapneumovir PCR Not Detected Influenza Type A (DUC) Negative Influenza A (RT-PCR) Not Detected Influenza Type B (DUC) Negative Influenza B (RT-PCR) Not Detected Influenza A & B Note See Note M. pneumoniae (PCR) Not Detected Parainfluenza 1 (PCR) Not Detected Parainfluenza 2 (PCR) Not Detected Parainfluenza 3 (PCR) Not Detected Parainfluenza 4 (PCR) Not Detected RSV (PCR) Not Detected Entero/Rhino (PCR) Not Detected SARS-CoV-2 RNA (RT-PCR) Not Detected Imaging Radiologist's Impressions: Impressions Chest CT 06/21/24 10:34 IMPRESSION: * No evidence of pulmonary edema, pneumonia or pleural effusion. * Scattered linear opacities of mild atelectasis in both lungs. * Cardiomegaly and atherosclerotic disease of coronary arteries. The pulmonary arteries are chronically mildly enlarged, and this could be a manifestation of pulmonary arterial hypertension. Assessment and Plan (1) Pneumonia: Status: Acute (2) COPD exacerbation: Status: Acute (3) Acute and chronic respiratory failure: Status: Acute Plan 84-year-old female with history of [id number] type 2 diabetes, lymphedema, hypertension, COPD with chronic hypoxemic respiratory failure noncompliant with supplemental O2, MAGAN not compliant with CPAP, coronary artery disease, pulmonary hypertension, PVCs who is morbidly obese with BMI greater than 49 admitted for further management of pneumonia with acute hypoxemic respiratory failure and copd exacerbation #Acute on chronic hypoxemic hypercapneic respiratory failure due to pneumonia/atelectasis and copd exacebration -CT shows atelectasis but no definitive effusions, edema, or pnemonia -non compliant with 2 L O2 at home. Desatting to 83% on 2L, now on 4L. Continue per protocol -Hx pseudomonas pneumonia. IV cefepime (initiated 06/21) -IV methylprednisolone 40mg bid -duonebs q4h kimmie/prn -sputum culture, strep pneumo ag, legionella ag -cough syrup -follow cbc, cultures #Non insulin dependent type 2 diabetes without hyperglycemia -POC glucose, diabetic diet -Humalog on sliding scale. Hold metformin # hypertension -resume Bumex and diltiazem # heart failure reduced ejection fraction -clinically euvolemic. give iv bumex x1 given exacebration of copd/wheezing with pneumonia -resume p.o. Bumex. Per cardiology patient should be taking bumex 2mg bid and metolazone q48h (however do not see this ordered within the last 2 years). However, PCP is also prescribing 80mg lasix daily. Would confirm diuretics with cardiology. Bumex continued, lasix on hold -chronic lymphedema -Bumex -continue Unna boots # MAGAN -noncompliant with CPAP # CAD/HLD/pulmonary hypertension -no anginal chest pain -continue statin, diltiazem # morbid obesity --weight loss efforts strongly encouraged DVT prophylaxis-Lovenox Full code Patient requires inpatient stay at least 2 midnights for management of acute on chronic hypoxemic respiratory failure secondary to pneumonia and COPD exacerbation with known history of Pseudomonas pneumonia which will require broad-spectrum IV antibiotics, IV steroids and close monitoring of respiratory status Quality Stroke Does the patient have a stroke diagnosis?: No VTE Prior VTE?: No VTE Risk Level:: Medical - moderate - high VTE Device Contraindication: Treatment Not Indicated VTE Drug Contraindication: N/A - Med Ordered
--- NOTE | 2024-06-21 12:54 | PHA.MEDREC ---
Addendum entered by Ira Tadeo RP 06/21/24 13:15: Reviewed by [facility] Original Note: Pharmacy Consult ? Medication Reconciliation Pharmacy has completed the medication reconciliation. spoke with patient to confirm medications. She only takes gemfibrozil 1 tab once daily. She has not taken the tramadol but has it at home. Her mucinex is scheduled. She confirmed use of both bumex and lasix.
[2024-06-21] MEDS: Bumetanide 1 MG/4 ML VIAL 2 MG IVPUSH (13:17)
[2024-06-21] MEDS: dilTIAZem HCL CD 180 MG CAP.ER.24H 360 MG PO (13:18)
[2024-06-21] MEDS: Enoxaparin Sodium 40 MG/0.4 ML SYRINGE SUBCUT (13:18)
[2024-06-21] MEDS: cefEPime HCl 2 GM in 0.9 % Sodium Chloride 50 ML IV ×2 (13:18→20:40)
[2024-06-21 14:20] LABS: Appearance Urine Clear; Color Urine Yellow; Glucose Urine UA Negative (Negative); Leukocyte Esterase Urine Negative (Negative); Nitrite Urine Negative (Negative); Specific Gravity - Urine >= 1.030 (1.005-1.025); Urine Blood Negative (Negative); Urine Ketones Negative (Negative); Urine Protein Negative (Neg-Trace)
[2024-06-21 14:56] LABS: Glucose, Whole Blood 239 mg/dL (60-115)
[2024-06-21] MEDS: Albuterol/Iprat 2.5/0.5MG 3 ML AMPUL.NEB INHALE ×2 (15:07→18:45)
--- NOTE | 2024-06-21 15:36 | PC.NURSE ---
patient able to stand and place self onto commode with standby assistance. remains alert and oriented, awaiting bed assignment upstairs.
[2024-06-21] MEDS: 0.9 % Sodium Chloride Flush 3 ML SYRINGE IVFLUSH (17:24)
[2024-06-21] MEDS: Acetaminophen 325 MG TABLET 650 MG PO (17:29)
--- NOTE | 2024-06-21 19:29 | MHC.EDTECH ---
This tech entere patients room. Patient states she lost her hearing aide in the bed. This tech assiste patient with locating aide. Patient also stating she will not use her 02 at this time. I do not wear it now, and I'm not going to wear it at home. JOVITA Garrison aware.
[2024-06-21 23:24] LABS: Glucose, Whole Blood 189 mg/dL (60-115)
[2024-06-21] MEDS: Bumetanide 1 MG TABLET 2 MG PO (23:26)
[2024-06-21] MEDS: Gabapentin 300 MG CAPSULE PO (23:28)
[2024-06-21] MEDS: Insulin Lispro 100 UNIT/ML 3 ML VIAL SUBCUT (23:29)
[2024-06-22] VITALS (9 sets, daily range): BP systolic 136–174; BP diastolic 62–96; PULSE 72–95; RESP 14–22; TEMP 36.6–37.1; O2SAT 93–96
[2024-06-22] MEDS: traMADoL HCL 50 MG TABLET PO ×3 (00:26→21:51)
--- NOTE | 2024-06-22 01:10 | PC.NURSE ---
report given to JOVITA Wild in overflow
[2024-06-22] MEDS: guaiFENesin LA 600 MG TAB.ER.12H PO ×2 (03:15→14:19)
[2024-06-22] MEDS: cefEPime HCl 2 GM in 0.9 % Sodium Chloride 50 ML IV ×3 (03:15→19:38)
--- NOTE | 2024-06-22 03:40 | PC.NURSE ---
Assumed care of patient at 03:03 am. Patient is alert and oriented x3. She reports chronic, low back pain, rating pain as 3/10 at present, pain is at tolerable level. Patient is on O2 at 2 LPM via oxymask saturating 94%. Purewick in place. Patient medicated per JAN, takes medications whole with water. Call altamirano in reach, plan of care ongoing.
[2024-06-22 05:30] LABS: MANUAL DIFF FLAG NO
[2024-06-22 05:36] LABS: Basophils Percent Auto 0.1 % (0-2); Hematocrit 42.6 % (37.0-47.0); Hemoglobin 13.7 g/dl (12.0-16.0); Imm Gran Abs Auto 0.17 X10*3/uL (0.00-0.03); Imm Gran Pct Auto 1.6 % (0.0-0.4); Lymphocytes Absolute Auto 0.4 X10*3/uL (1.2-4.9); Lymphocytes Percent Auto 3.8 % (20-40); Mean Corpuscular HGB Conc 32.2 g/dl (31.0-35.0); Mean Corpuscular Hemoglobin 32.5 pg (27.0-33.0); Mean Corpuscular Volume 100.9 fL (80.0-98.0); Monocytes Absolute Auto 0.4 X10*3/uL (0.1-1.2); Monocytes Percent Auto 3.6 % (2-11); Neutrophils Absolute Auto 9.7 x10*3/uL (2.0-8.3); Neutrophils Percent Auto 90.9 % (45-73); Platelet Count 178 X10*3/uL (160-400); Red Blood Count 4.22 X10*6/uL (4.20-5.50); Red Cell Distribution Width 14.3 % (11.0-16.0); SCAN SMEAR FLAG 1; White Blood Count 10.6 X10*3/uL (4.8-10.8)
[2024-06-22 05:48] LABS: Anion Gap 15 (12-20); Blood Urea Nitrogen 18 mg/dL (9-16); Calcium 9.2 mg/dL (8.4-10.2); Carbon Dioxide 27 mmol/L (22-29); Chloride 104 mmol/L (96-108); Creatinine Clr Calc Pharmacy 74.5; Estimated Glomerular Filt Rate > 60; Glucose Random 150 mg/dL (60-115); Potassium 3.8 mmol/L (3.3-5.1); Sodium 142 mmol/L (135-145)
[2024-06-22] MEDS: Omeprazole 20 MG CAPSULE.DR PO (05:57)
[2024-06-22] MEDS: methylPREDNISolone Sod Succ 40 MG/ML VIAL IVPUSH ×2 (05:57→17:05)
[2024-06-22] MEDS: Albuterol/Iprat 2.5/0.5MG 3 ML AMPUL.NEB INHALE ×4 (07:11→19:52)
[2024-06-22] MEDS: 0.9 % Sodium Chloride Flush 3 ML SYRINGE IVFLUSH ×2 (07:43→16:26)
[2024-06-22 07:45] LABS: Glucose, Whole Blood 140 mg/dL (60-115)
[2024-06-22] MEDS: Pravastatin Sodium 40 MG TABLET PO (08:04)
[2024-06-22] MEDS: dilTIAZem HCL CD 180 MG CAP.ER.24H 360 MG PO (08:04)
--- NOTE | 2024-06-22 09:00 | PC.NURSE ---
a&ox4. vss and up to date aside from being hypertensive. pt remains on 2L via oxymask. per previous RN - provider aware of BP. morning medication administered per provider order. pharmacy called d/t medication not being [facility] - will administer when able. no insulin administered per sliding scale as insulin coverage is not needed at this time. pt transitioned from bed to recliner to promote comfort. 1:1 assist needed to ambulate. pillows placed beneath LE bilaterally to promote comfort/circulation. pt provided w/ sputum cup as sample is needed. pt waiting for bed assignment at this time. bed alarm turned on for safety precautions. no sob/wob noted. respirations even/unlabored. plan of care ongoing. call altamirano placed within reach.
[2024-06-22] MEDS: gemfibroziL 600 MG TABLET PO (10:37)
[2024-06-22] MEDS: Bumetanide 1 MG TABLET 2 MG PO (10:37)
[2024-06-22] MEDS: Ipratropium Bromide Nas 0.03 % 30 ML SPRAY 2 SPRAY NOSTRIL-B (11:09)
--- NOTE | 2024-06-22 11:27 | PC.NURSE ---
pt received breathing treatment via RT at this time. pt tolerated well. pt replaced back on 2L via oxymask at this time. resting in recliner in no apparent distress. no sob/wob noted. respirations remain even/unlabored. family bedside for support. call altamirano placed within reach.
[2024-06-22 11:50] LABS: Glucose, Whole Blood 154 mg/dL (60-115)
[2024-06-22] MEDS: Insulin Lispro 100 UNIT/ML 3 ML VIAL SUBCUT ×2 (12:08→21:57)
[2024-06-22] MEDS: Enoxaparin Sodium 40 MG/0.4 ML SYRINGE SUBCUT (14:18)
[2024-06-22 17:03] LABS: Glucose, Whole Blood 148 mg/dL (60-115)
--- NOTE | 2024-06-22 18:28 | HO.PM.IMPN ---
Subjective Subjective Date of Service: 06/23/24 Interval History: Feeling better complaining of persistent dry cough and shortness of breath, no fevers, no chills, denies worsening lower extremity swelling, tolerating diet no acute events overnight. Review of Systems All other system reviewed and are negative. Physical Exam Vital Signs: Vital Signs: Last Vital Signs Temp 97.8 F 06/22/24 16:00 Pulse 75 06/22/24 16:00 Resp 14 06/22/24 16:00 BP 136/72 06/22/24 16:00 Pulse Ox 95 06/22/24 16:00 O2 Del Method Nasal Cannula 06/22/24 16:00 O2 Flow Rate 2 06/22/24 16:00 BMI result Body Mass Index 49.6 Const: Other: General awake alert x3 in no acute distress. Neck no JVD. CVS regular rate rhythm, Respiratory lungs clear to auscultation,coarse bs, no respiratory distress, no wheeze, no rhonchi. Gastrointestinal abdomen soft, nonmtender, bowel sounds audible Extremities chronic lymphedema, left >rt Neuro non focal ,speech clear. Skin no rash Appropriate affect Objective Data Active Medications Acetaminophen (Acetaminophen 325 Mg Tablet) 650 mg PO Q6H PRN PRN Reason: Pain, Mild (Pain Scale 1-3), fever or headache Last Admin: 06/21/24 17:29 Dose: 650 mg Documented By: AJAY Albuterol/Ipratropium (Albuterol/Iprat 2.5/0.5mg 3 Ml Ampul.Neb) 3 ml INHALE RQ4H WHILE AWAKE [facility] Last Admin: 06/22/24 15:33 Dose: 3 ml Documented By: MARISSA Bumetanide (Bumetanide 1 Mg Tablet) 2 mg PO BID [facility]; Protocol Last Admin: 06/22/24 10:37 Dose: 2 mg Documented By: ZACH Calcium Carbonate (Calcium Carbonate 750 Mg Tab.Chew) 750 mg PO Q4H PRN PRN Reason: Heartburn Diltiazem HCl (Diltiazem Hcl Cd 180 Mg Cap.Er.24h) 360 mg PO DAILY [facility]; Protocol Last Admin: 06/22/24 08:04 Dose: 360 mg Documented By: ZACH Enoxaparin Sodium (Enoxaparin Sodium 40 Mg/0.4 Ml Syringe) 40 mg SUBCUT Q24H [facility] Last Admin: 06/22/24 14:18 Dose: 40 mg Documented By: MAYKEL Gabapentin (Gabapentin 300 Mg Capsule) 300 mg PO BEDTIME [facility] Last Admin: 06/21/24 23:28 Dose: 300 mg Documented By: FRANCK Gemfibrozil (Gemfibrozil 600 Mg Tablet) 600 mg PO DAILY [facility] Last Admin: 06/22/24 10:37 Dose: 600 mg Documented By: ZACH Glucose (Glucose Gel 15 Gm Gel..Gram.) 15 gm PO Q15M PRN; Protocol PRN Reason: per Hypoglycemia Standing Ord. Guaifenesin (Guaifenesin 200 Mg/10 Ml 10 Ml Liquid) 10 ml PO Q4H PRN PRN Reason: Cough Guaifenesin (Guaifenesin [place] 600 Mg Tab.Er.12h) 600 mg PO Q12H [facility] Last Admin: 06/22/24 14:19 Dose: 600 mg Documented By: MAYKEL Cefepime HCl 2 gm/ Sodium (Chloride) 50 mls @ 100 mls/hr IV Q8H [facility] Last Infusion: 06/22/24 12:41 Dose: Infused Documented By: ZACH Dextrose (D10) 250 mls @ 750 mls/hr IV Q15M PRN; Protocol PRN Reason: per Hypoglycemia Standing Ord. Insulin Human Lispro (Insulin Lispro 100 Unit/Ml 3 Ml Vial) 0 unit SUBCUT QIDACHS [facility]; Protocol Last Admin: 06/22/24 16:53 Dose: Not Given Documented By: ZACH Non-Admin Reason: No Insulin Coverage Ipratropium [place] (Ipratropium [place] 0.03 % 30 Ml [place]) 2 spray NOSTRIL-B BID [facility] Last Admin: 06/22/24 11:09 Dose: 2 spray Documented By: ZACH Magnesium Hydroxide (Milk Of Magnesia 30 Ml Oral.Susp) 30 ml PO DAILY PRN PRN Reason: Constipation Melatonin (Melatonin 3 Mg Tablet) 6 mg PO BEDTIME PRN PRN Reason: Insomnia Methylprednisolone Sodium Succinate (Methylprednisolone Sod Succ 40 Mg/Ml Vial) 40 mg IVPUSH Q12H [facility] Last Admin: 06/22/24 17:05 Dose: 40 mg Documented By: ZACH Non-Formulary Medication (Ciprofloxacin Hcl) 2 drop EYE-BOTH TID [facility] Nystatin/Triamcinolone Acetonide (Nystatin/Triamcinolone Cream 15 Gm Tube) 1 appl TOPICAL BID PRN PRN Reason: fungal infection Omeprazole (Omeprazole 20 Mg Capsule.) 20 mg PO DAILY@0630 [facility] Last Admin: 06/22/24 05:57 Dose: 20 mg Documented By: ARIANNA Ondansetron HCl (Ondansetron Hcl 4 Mg/2 Ml Vial) 4 mg IVPUSH Q8H PRN PRN Reason: Nausea and Vomiting Pravastatin Sodium (Pravastatin Sodium 40 Mg Tablet) 40 mg PO DAILY [facility] Last Admin: 06/22/24 08:04 Dose: 40 mg Documented By: ZACH Sodium Chloride (0.9 % Sodium Chloride Flush 3 Ml Syringe) 3 ml IVFLUSH QSHIFT [facility] Last Admin: 06/22/24 16:26 Dose: 3 ml Documented By: ZACH Tramadol HCl (Tramadol Hcl 50 Mg Tablet) 50 mg PO Q6H PRN PRN Reason: Pain, Moderate(Pain Scale 4-6) Last Admin: 06/22/24 08:05 Dose: 50 mg Documented By: ZACH Labs 06/22/24 05:02 06/22/24 05:02 Labs: Laboratory Results - last 24 hr 06/21/24 06/22/24 06/22/24 23:19 05:02 07:38 MCV 100.9 H MCH 32.5 MCHC 32.2 RDW 14.3 Plt Count 178 MPV 11.0 Immature Gran % (Auto) 1.6 H Neut % (Auto) 90.9 H Lymph % (Auto) 3.8 L [place] % (Auto) 3.6 Eos % (Auto) 0.0 Baso % (Auto) 0.1 Lymph # (Auto) 0.4 L [place] # (Auto) 0.4 Eos # (Auto) 0.0 Baso # (Auto) 0.0 Abs Immat Gran (auto) 0.17 H Absolute Neuts (auto) 9.7 H Absolute Nucleated RBC 0.000 Nucleated RBC % (auto) 0.0 Anion Gap 15 Estim Creat Clear Calc 74.5 Estimated GFR > 60 POC Glucose 189 H 140 H Random Glucose 150 H Calcium 9.2 06/22/24 06/22/24 11:42 16:51 MCV MCH MCHC RDW Plt Count MPV Immature Gran % (Auto) Neut % (Auto) Lymph % (Auto) [place] % (Auto) Eos % (Auto) Baso % (Auto) Lymph # (Auto) [place] # (Auto) Eos # (Auto) Baso # (Auto) Abs Immat Gran (auto) Absolute Neuts (auto) Absolute Nucleated RBC Nucleated RBC % (auto) Anion Gap Estim Creat Clear Calc Estimated GFR POC Glucose 154 H 148 H Random Glucose Calcium Microbiology Microbiology Results: Microbiology 06/21/24 09:30 Blood Culture - Preliminary Blood - Venous No growth after 24 hours. 06/21/24 09:30 Blood Culture - Preliminary Blood - Venous No growth after 24 hours. Assessment and Plan (1) COPD exacerbation: Status: Acute (2) Acute and chronic respiratory failure: Status: Acute (3) Pneumonia: Status: Acute (4) Lymphedema: Status: Acute Plan 84-year-old female with history of [id number] type 2 diabetes, lymphedema, hypertension, COPD with chronic hypoxemic respiratory failure noncompliant with supplemental O2, MAGAN not compliant with CPAP, coronary artery disease, pulmonary hypertension, PVCs who is morbidly obese with BMI greater than 49 admitted for further management of pneumonia with acute hypoxemic respiratory failure and copd exacerbation #Acute on chronic hypoxemic hypercapneic respiratory failure due to pneumonia/atelectasis and copd exacebration -less shortness breath, no fevers, WBC normalized -CT shows atelectasis but no definitive effusions, edema, or pnemonia -non compliant with 2 L O2 at home. Desatting to 83% on 2L, now on 4L. Continue per protocol -Hx pseudomonas pneumonia. IV cefepime (initiated 06/21) -IV methylprednisolone 40mg bid -duonebs q4h kimmie/prn -sputum culture uncollected, strep pneumo ag, legionella ag pending -cough syrup #Non insulin dependent type 2 diabetes without hyperglycemia -is stable blood sugars, continue insulin sliding scale, diabetic diet, metformin hold # hypertension - elevated blood pressure, continue Bumex, Lasix and diltiazem follow BP # heart failure reduced ejection fraction -clinically euvolemic. -continue Bumex and Lasix, Per cardiology patient should be taking bumex 2mg bid and metolazone q48h (however do not see this ordered within the last 2 years). -chronic lymphedema -Bumex -continue Unna boots # MAGAN -noncompliant with CPAP # CAD/HLD/pulmonary hypertension -no anginal chest pain -continue statin, diltiazem # morbid obesity --weight loss efforts strongly encouraged DVT prophylaxis-Lovenox Full code Patient requires continue inpatient stay for management of acute on chronic hypoxemic respiratory failure secondary to pneumonia and COPD exacerbation with known history of Pseudomonas pneumonia which will require broad-spectrum IV antibiotics, IV steroids and close monitoring of respiratory status Quality Stroke Does the patient have a stroke diagnosis?: No VTE Prior VTE?: No VTE Risk Level:: Medical - moderate - high VTE Device Contraindication: Treatment Not Indicated VTE Drug Contraindication: N/A - Med Ordered
[2024-06-22] MEDS: Gabapentin 300 MG CAPSULE PO (21:51)
[2024-06-22 21:54] LABS: Glucose, Whole Blood 168 mg/dL (60-115)
--- NOTE | 2024-06-23 02:16 | PC.NURSE ---
Took report from off-going RN at 2300 hours. Pt is 84 y/o female from home, being admitted for pneumonia and COPD. Pt is on oxygen via [place] at home, on oxymask here with good compliance. Pt has 20G in left AC. Is a 1:1 assist for toileting. Diabetic diet, takes meds whole without concern. Is calm and cooperative, appropriate with staff. Utilizes the call-light appropriately, and verbalizes needs. Pt has been sleeping intermitently in bed, changing positions as desired independently. Pt is pending admission upstairs. Will continue to monitor for changes.
--- NOTE | 2024-06-23 03:10 | PC.NURSE ---
OOB to commode with supervision. Back to bed after toileting without issue. Repositioned in bed for comfort. No needs verbailzed at this time.
[2024-06-23] MEDS: 0.9 % Sodium Chloride Flush 3 ML SYRINGE IVFLUSH ×2 (03:25→09:31)
[2024-06-23] MEDS: guaiFENesin LA 600 MG TAB.ER.12H PO (03:40)
[2024-06-23] MEDS: cefEPime HCl 2 GM in 0.9 % Sodium Chloride 50 ML IV (03:47)
--- NOTE | 2024-06-23 04:03 | PC.NURSE ---
Sitting upright in bed, awake, actively conversing. IV site redressed and flushed without issue, no signs of infiltration, but presence of some leaking around site. Pt offered some fluids to drink. Remains compliant with oxymask. Will continue to monitor for any changes.
[2024-06-23] MEDS: methylPREDNISolone Sod Succ 40 MG/ML VIAL IVPUSH (05:48)
[2024-06-23 05:49] VITALS: BP 170/101; PULSE 78; RESP 20; TEMP 36.4; O2SAT 93
[2024-06-23] MEDS: Omeprazole 20 MG CAPSULE.DR PO (06:31)
--- NOTE | 2024-06-23 06:48 | PC.NURSE ---
Pt OOB into chair with feet elevated, watching tv. Medicated per MAR. No verbalized needs/wants at this time. Appropriate with staff, is calm and cooperative. No acute distress observed. Will continue to monitor for changes.
[2024-06-23 06:58] LABS: Glucose, Whole Blood 151 mg/dL (60-115)
[2024-06-23] MEDS: Insulin Lispro 100 UNIT/ML 3 ML VIAL SUBCUT ×2 (07:44→12:13)
[2024-06-23] MEDS: Albuterol/Iprat 2.5/0.5MG 3 ML AMPUL.NEB INHALE ×2 (08:00→11:34)
[2024-06-23 08:01] VITALS: PULSE 78; RESP 20; O2SAT 94
[2024-06-23] MEDS: Bumetanide 1 MG TABLET 2 MG PO (09:28)
[2024-06-23] MEDS: dilTIAZem HCL CD 180 MG CAP.ER.24H 360 MG PO (09:29)
[2024-06-23] MEDS: Pravastatin Sodium 40 MG TABLET PO (09:29)
[2024-06-23] MEDS: gemfibroziL 600 MG TABLET PO (09:30)
[2024-06-23] MEDS: Furosemide 40 MG TABLET 80 MG PO (09:30)
[2024-06-23] MEDS: Ipratropium Bromide Nas 0.03 % 30 ML SPRAY 2 SPRAY NOSTRIL-B (09:48)
[2024-06-23 11:35] VITALS: PULSE 94; RESP 20; O2SAT 92
[2024-06-23 11:38] VITALS: PULSE 94; O2SAT 90; O2SAT 94
[2024-06-23 11:57] LABS: Glucose, Whole Blood 153 mg/dL (60-115)
--- NOTE | 2024-06-23 14:02 | P.DS_ITS ---
DS: Providers Provider Date of Service: 06/23/24 Date of admission: 06/21/24 12:04 Date of discharge: 06/23/24 Primary care physician: Jovanny Carter MD DS: Diagnosis Discharge Diagnosis (1) COPD exacerbation: Status: Acute (2) Acute and chronic respiratory failure: Status: Acute (3) Pneumonia: Status: Acute (4) Lymphedema: Status: Acute DS: Summary Hospital Course Hospital Course: Date of Service: 06/21/24 Attending physician on admission: Bandar Gifford Chief Complaint: weakness, cough 84-year-old female with history of [id number] type 2 diabetes, lymphedema, hypertension, COPD with chronic hypoxemic respiratory failure noncompliant with supplemental O2, MAGAN not compliant with CPAP, coronary artery disease, pulmonary hypertension, PVCs who is morbidly obese with BMI greater than 49 presented to the ED for evaluation of nausea and vomiting, lightheadedness, generalized weakness and cough with productive yellow sputum ongoing for 3-4 days. She states she has been so weak she has been having difficulty ambulating. At baseline she uses a cane only on stairs and outside of the house. She was seen in the ED yesterday and was discharged on tramadol for possible costochondritis. However symptoms worsened overnight. No fevers, chills, abdominal pain, diarrhea, melena, hematochezia, sore throat, congestion, shortness of breath, wheezing, syncope, chest pain. No one sick at home. No recent travel. On admission, patient hypertensive to 183/82 but has not taken any of her home medications today. She is mildly tachycardic to 100 and tachypneic to 23. She was noted to be hypoxic to 83% on 2 L supplemental O2 and was increased to 4 L via nasal cannula now maintaining oximetry 90-92%. She has a leukocytosis of 12.1. Renal function baseline, electrolyte levels normal except for CO2 30. VBG shows pH 7.49, pCO2 40, bicarb 31. BNP 116. Negative for COVID-19, RSV, influenza and full RPP is also negative. On my review, chest CT appears to have patchy infiltrates in the left lower lobe as well as atelectasis however full radiology read shows no evidence of pulmonary edema, pneumonia or effusions which shows scattered linear opacities of mild atelectasis in both lungs as well as cardiomegaly and atherosclerotic disease of the coronary arteries pulmonary arteries are chronically enlarged possibly related to pulmonary hypertension. She does have a history of Pseudomonas pneumonia on sputum culture. In the ED, has received 1 g ceftriaxone, azithromycin, 125 mg methylprednisolone, ondansetron, 4 mg morphine and DuoNeb. Hospital course: 84-year-old female with history of uuc-xhldafc-tuobsfphr type 2 diabetes, lymphedema, hypertension, COPD with chronic hypoxemic respiratory failure noncompliant with supplemental O2, MAGAN not compliant with CPAP, coronary artery disease, pulmonary hypertension, PVCs , morbidly obese with BMI greater than 49, admitted for symptoms of generalized weakness, productive cough, nausea, vomiting and lightheadedness , patient was diagnosed with Acute on chronic hypoxemic, hypercapneic respiratory failure due to atelectasis , possible pneumonia and mild COPD exacerbation, CT chest showed no definite effusion, edema or pneumonia, patient empirically treated with IV antibiotics, updraft treatment and steroids, patient responded well to above treatment, at present she denies shortness of breath, no fevers, normal WBC count, home O2 eval showed no hypoxia, therefore patient is being discharged home with recommendations to continue home inhalers, and recommend close outpatient follow-up with pulmonology recommend ambulation as tolerated. In regard to Non insulin dependent type 2 diabetes noted to have stable blood sugars recommend to continue home medications and diabetic diet In regard to heart failure with reduced ejection fraction, coronary artery disease, hyperlipidemia and hypertension she is recommend to continue all home medication had no anginal symptoms In regard to chronic lymphedema recommend to continue Bumex and a boots MAGAN -noncompliant with CPAP Time Attestation Discharge Coordination Time (in mins): 38 Quality: Safe Use of Opioids Does Pt have an Active Cancer Diagnosis on the Problem List?: No Quality: Stroke Does the patient have a stroke diagnosis?: No Physical Exam Vital Signs: Vital Signs: Last Vital Signs Temp 97.6 F 06/23/24 05:49 Pulse 94 06/23/24 11:35 Resp 20 06/23/24 11:35 BP 170/101 H 06/23/24 05:49 Pulse Ox 93 06/23/24 05:49 O2 Del Method Room Air 06/23/24 05:49 O2 Flow Rate 2 06/22/24 16:00 BMI result Body Mass Index 49.6 Const: Other: General awake alert x3 in no acute distress, talking in full sentences. Neck no JVD. CVS regular rate rhythm, Respiratory lungs clear to auscultation,no respiratory distress, no wheeze, no rhonchi. Gastrointestinal abdomen soft, non tender, bowel sounds audible Extremities chronic lymphedema, left >rt Neuro non focal ,speech clear. Skin no rash Appropriate affect DS: Data Data Completed and Pending Completed studies during hospitalization [Text1]: Procedures Introduction of Remdesivir Anti-infective into Peripheral Vein, Percutaneous Approach, [employer] 5 (05/10/22) Labs on day of discharge: Laboratory Results - last 24 hr 06/22/24 06/22/24 06/23/24 16:51 21:51 06:34 POC Glucose 148 H 168 H 151 H 06/23/24 11:47 POC Glucose 153 H Preliminary micro results at discharge 06/21/24 09:30 Blood Culture - Preliminary Blood - Venous No growth after 48 hours. 06/21/24 09:30 Blood Culture - Preliminary Blood - Venous No growth after 48 hours. Discharge Plan Discharge Anticipated Discharge Date/Time: 06/23/24 13:35 Patient Disposition: Home, Self-Care Discharge Diagnosis: Acute on chronic hypoxic/hypercapnic respiratory failure COPD exacerbation Referrals: Jovanny Carter MD [Primary Care Provider] - Discharge Medications: Continued bumetanide 2 mg tablet 2 mg PO BID Qty: 180 3RF ipratropium bromide 21 mcg (0.03 %) spray,non-aerosol 2 spray intranasal BID 90 Days Qty: 90 1RF pravastatin 40 mg tablet 40 mg PO DAILY diltiazem HCl [Tiadylt ER] 360 mg capsule,extended release 24 hr 360 mg PO DAILY gemfibrozil 600 mg tablet 600 mg PO DAILY omeprazole 20 mg capsule,delayed release(DR/EC) 20 mg PO DAILY@0630 metformin 500 mg tablet extended release 24 hr 500 mg PO DAILY guaifenesin [Mucinex] 600 mg Tablet Extended Release 12hr 600 mg PO Q12H furosemide 40 mg tablet 80 mg PO DAILY meloxicam 15 mg tablet 15 mg PO DAILY glucosamine sulfate [Glucosamine] 500 mg Tablet 500 mg PO DAILY Rx Instructions: administer with a meal ciprofloxacin HCl 0.3 % drops 2 drp ophthalmic (eye) TID Rx Instructions: both eyes clotrimazole-betamethasone 1-0.05 % cream 1 appl topical BID PRN (Reason: fungal infection) gabapentin 300 mg capsule 300 mg PO BEDTIME Discharge Orders: Discharge Order (Routine); Ordered 06/23/24 Ordered By: Bandar Gifford Diet: Diabetic diet Activity on Discharge: As tolerated Stand Alone Forms: Patient Portal Discharge page Print Language: Wallisian Care Plan Goals: Acute on chronic hypoxic respiratory failure resolved CT chest showed no pneumonia Recommend to continue all home medication Use incentive spirometry/ambulate as tolerated/cough medication as needed, no further antibiotic or steroids warranted at this time Health Concerns: Diabetes mellitus/coronary artery disease/lymphedema/hypertension Plan of Treatment: Outpatient follow-up with primary care physician call for appointment Outpatient follow-up with pulmonology Assessment: as above
[2024-06-23 14:03] VITALS: BP 129/68; PULSE 82; RESP 16; TEMP 36.6; O2SAT 95
--- NOTE | 2024-06-23 14:26 | MHC.CM.PN ---
IMM delivered. Patient lives in an apartment w/ . Uses cane PRN on stairs. Otherwise independent. H&P states patient uses O2 and CPAP. Patient denies this. HCP on file and verified. PCP Jovanny Carter MD DP: Patient medically cleared for dc home self care. to transport. RN aware.
[2024-06-23 15:02] VITALS: BP 139/84; PULSE 80; RESP 14; TEMP 36.8; O2SAT 91
[2024-06-24 06:48] LABS: Strep Pneumo Ag urine Not Detected (Not Detected)
[2024-06-27 03:13] LABS: Legionella Ag Urine Not Detected (Not Detected)
== END 2024-06-23 20:20 | disposition home or self-care (01) | DRG 193 ==
LOC: HO.ED 09:53 → HO.EDOVER 12:11
PROVIDERS: Physician Assistant; Admitting Provider Physician Assistant; Emergency Provider Emergency Medicine; PCP Internal Medicine; Visit Provider Hospitalist
DX: J18.9 Pneumonia, unspecified organism (principal); J96.21 Acute and chronic respiratory failure with hypoxia; J44.0 Chronic obstructive pulmonary disease with (acute) lower respiratory infection; I50.22 Chronic systolic (congestive) heart failure; Z68.42 Body mass index [BMI] 45.0-49.9, adult; J98.11 Atelectasis; J44.1 Chronic obstructive pulmonary disease with (acute) exacerbation; E66.01 Morbid (severe) obesity due to excess calories; I11.0 Hypertensive heart disease with heart failure; E11.9 Type 2 diabetes mellitus without complications; I89.0 Lymphedema, not elsewhere classified; I27.20 Pulmonary hypertension, unspecified; Z99.81 Dependence on supplemental oxygen; I25.10 Atherosclerotic heart disease of native coronary artery without angina pectoris; G47.33 Obstructive sleep apnea (adult) (pediatric); Z20.822 Contact with and (suspected) exposure to COVID-19; Z91.199 Patient's noncompliance with other medical treatment and regimen due to unspecified reason; Z79.84 Long term (current) use of oral hypoglycemic drugs; Z79.899 Other long term (current) drug therapy
CPT/HCPCS: 0241U; 36415; 71045; 71260; 80048; 80053; 81003; 82803; 82947; 83605; 83690; 83735; 83880; 84484; 85025; 85610; 87040; 87449; 87502; 87633; 87899; 93005; 94640; 96374; 96375; 99285; J0456; J0692; J0696; J1650; J1939; J2270; J2405; J2919; Q9967

== ENCOUNTER → 2024-06-21 12:04 | Outpatient (BNV) | payer MEDICARE, SELFPAY | PROVIDERS: Admitting Provider Physician Assistant; Emergency Provider Emergency Medicine; PCP Internal Medicine; Visit Provider Physician Assistant | DX: J18.9 Pneumonia, unspecified organism (principal); J44.1 Chronic obstructive pulmonary disease with (acute) exacerbation; J96.20 Acute and chronic respiratory failure, unspecified whether with hypoxia or hypercapnia | CPT/HCPCS: 99223; 99232; 99239 ==

== ENCOUNTER 2024-07-01 10:49 | Outpatient (AMB) | payer MEDICARE, SELFPAY ==
[2024-07-01 10:59] VITALS: BP 134/80; PULSE 102; O2SAT 95; BMI 48.3
--- NOTE | 2024-07-01 10:59 | A.OFFVIS_ITS ---
Vital Signs 07/01/24 10:59 Height 5 ft 5 in Weight 290 lb 4 oz BMI 48.3 BP 134/80 Blood Pressure Location Lt radial Position Sitting Pulse 102 H Pulse Source Pulse Oximeter Pulse Oximetry (%) 95 Oxygen Delivery Method Room Air Intake Visit Reasons: After hospital Allergies mold [MOLD] Allergy (Intermediate, Verified 07/01/24 11:03) COUGHING, SINUS CONGESTION Penicillins [PENICILLINS] Allergy (Intermediate, Verified 07/01/24 11:03) REVERSE REACTION MAKES PT FEEL WORSE HPI HPI After hospital: Details: Izabel is an 84 year old female, never smoker, with underlying history of COPD, MAGAN refuses CPAP therapy, right sided heart failure followed by cardiology on bumex 2 mg BID and morbid obesity. At baseline she reports moderate control of symptoms on duoneb and formorterol. She was recently admitted to [facility] for COPD exacerbation received duoneb and IV antibiotics, discharged without supplemental oxygen and did not require any medications. Today she presents for hospital follow up. She reports symptoms have been controlled on current regimen and has been increasing activity. She continues to report cough however significantly decreased and dyspnea is a baseline. Denies wheezing or chest tightness. Of note, she is down 10 lbs since last visit. [facility] Medical History Right heart failure Chronic respiratory failure with hypoxia and hypercapnia Obstructive sleep apnea CAD (coronary artery disease) PVC (premature ventricular contraction) Morbid obesity Dyslipidemia Type 2 diabetes mellitus Lymphedema Hypertension COPD (chronic obstructive pulmonary disease) Arthritis Surgical History History of hysterectomy History of knee replacement Family History Mother Coronary artery disease Social History Household Members: Significant Other Housing: Apartment Do you presently have visiting nurse or other home services: No Alcohol intake: never Patient Tobacco Use Status: Never used Tobacco e-Cigarette/Vaping Use: Never Used Second Hand Smoke Exposure: No Advance Directives Date on File: 05/11/22 service: No Current occupational status: retired Review of Systems Const Denies chills, Denies excessive sweating, Denies fever(s), Denies headache(s) and Denies night sweats Eyes Denies dry eyes and Denies irritation ENT Reports Normal hearing present, Denies headache(s) and Reports nasal congestion Card Denies chest pain, Denies chest pain at rest, Denies chest pain with activity, Reports dyspnea, Reports dyspnea on exertion and Reports orthopnea Resp Denies change in phlegm color, Reports cough, Denies hemoptysis, Denies pain on inspiration, Denies pain with cough, Reports dyspnea, Reports dyspnea on exertion and Denies stridor Musc Denies myalgias Neuro Reports Normal hearing present and Denies headache(s) Endo Denies excessive sweating Aller/Immun Denies seasonal rhinorrhea Physical Exam Vital Signs: Last Vital Signs Pulse 102 H 07/01/24 10:59 BP 134/80 07/01/24 10:59 Pulse Ox 95 07/01/24 10:59 Oxygen Delivery Method Room Air 07/01/24 10:59 BMI result Body Mass Index 48.3 Const General: cooperative and alert Nutritional Appearance: obese Orientation/consciousness: patient oriented x3 HEENT Head: Yes normal to inspection, Yes normocephalic and Yes atraumatic Ears: hearing grossly normal bilaterally and external ears normal Eyes Periorbital: periorbital findings abnormal bilateral Eyelids: Yes eyelid abnormality Sclerae: sclerae normal EOM: EOMs intact bilaterally Chest Chest palpation & inspection: normal inspection of the chest Resp Effort & Inspection: able to speak in complete sentences, no stridor, not tachypneic, no tripod positioning and no use of accessory muscles Auscultation: no crackles, rhonchi throughout, no wheezes and diminished lung sounds Cardio Rate: regular rate Skin Other: warm, dry Neuro General: patient oriented x3 Cranial nerves: Yes Normal hearing present Cognition (Neuro): normal cognition Extrem Other: chronic lymphedema General: Yes pedal edema Psych Appearance: grossly normal and well kempt Speech and movement: Normal speech and movement present and Clear speech present Affect: normal affect Attitude: cooperative Thought process: Normal thought process present Thought content: Normal thought content present Insight: Good insight present (Psych) Judgement: Good judgement present (Psych) Office Procedures 6 Minute Walk Time:: 11:45 SPO2 % at rest: 98 Pulse at rest: 82 SPO2 % during excercise: 91 Pulse during excercise: 89 SPO2 % after excercise: 95 Pulse after excercise: 112 Distance in yards walked: 100 Performance Observations:: Patient walked on flat ground using a walker at a slow pace. Maintained O2 saturation of 91% or greater for the entirety of the walk. Pulse rate ranged from 8-112. Patient did not require the use of supplemental oxygen. [id number] - 6 Minute Walk Assessment & Plan Assessment & Plan (1) COPD (chronic obstructive pulmonary disease): Code(s): J44.9 - Chronic obstructive pulmonary disease, unspecified Category: Medical Qualifiers: COPD type: COPD with acute exacerbation Qualified Code(s): J44.1 - Chronic obstructive pulmonary disease with (acute) exacerbation (2) Obstructive sleep apnea: Comment: Noncompliant with CPAP Code(s): G47.33 - Obstructive sleep apnea (adult) (pediatric) Category: Medical (3) Requires supplemental oxygen: Code(s): Z99.81 - Dependence on supplemental oxygen Category: Medical (4) Nocturnal hypoxemia: Code(s): G47.34 - Idiopathic sleep related nonobstructive alveolar hypoventilation Category: Medical (5) Lymphedema: Code(s): I89.0 - Lymphedema, not elsewhere classified Category: Medical (6) Right heart failure: Code(s): I50.810 - Right heart failure, unspecified Category: Medical Plan At this time Izabel feels her symptoms are well controlled, advised to continue current regimen. 6MWT performed today and patient does not require supplemental oxygen. She is aware if symptoms recur to call office or if significantly worsen to seek emergent care. All questions were answered and patient is in agreement of plan. Will follow up in 3 months or sooner if needed. Orders: Orders AMB 6 minute walk Today J44.1 - Chronic obstructive pulmonary disease with (acute) exacerbation Coding Level of Care Code Est Pt Level 4 (38219) Diagnoses COPD (chronic obstructive pulmonary disease) J44.1 COPD type: COPD with acute exacerbation Obstructive sleep apnea G47.33 Requires supplemental oxygen Z99.81 Nocturnal hypoxemia G47.34 Lymphedema I89.0 Right heart failure I50.810 CPT Codes Coding ([id number])
[2024-07-01 12:02] VITALS: PULSE 82; O2SAT 98
== END 2024-07-01 11:56 | disposition home or self-care (01) ==
PROVIDERS: PCP Internal Medicine; Visit Provider Nurse Practitioner Family
DX: J44.1 Chronic obstructive pulmonary disease with (acute) exacerbation (principal); G47.33 Obstructive sleep apnea (adult) (pediatric); Z99.81 Dependence on supplemental oxygen; G47.34 Idiopathic sleep related nonobstructive alveolar hypoventilation; I89.0 Lymphedema, not elsewhere classified; I50.810 Right heart failure, unspecified
CPT/HCPCS: 94618; 99214

== ENCOUNTER → 2024-07-01 10:49 | Outpatient (BNVA) | payer MEDICARE, SELFPAY | PROVIDERS: PCP Internal Medicine; Visit Provider Nurse Practitioner Family | DX: J44.1 Chronic obstructive pulmonary disease with (acute) exacerbation (principal); G47.33 Obstructive sleep apnea (adult) (pediatric); G47.34 Idiopathic sleep related nonobstructive alveolar hypoventilation; I89.0 Lymphedema, not elsewhere classified; I50.810 Right heart failure, unspecified; E66.01 Morbid (severe) obesity due to excess calories; Z99.89 Dependence on other enabling machines and devices; Z68.42 Body mass index [BMI] 45.0-49.9, adult; Z99.81 Dependence on supplemental oxygen; Z79.899 Other long term (current) drug therapy | CPT/HCPCS: 94618; 99212 ==

== ENCOUNTER 2024-07-22 08:01 | Outpatient (REF) | payer MEDICARE, SELFPAY ==
[2024-07-22 08:16] LABS: MANUAL DIFF FLAG NO
[2024-07-22 08:28] LABS: Basophils Percent Auto 0.6 % (0-2); Eosinophils Absolute Auto 0.3 X10*3/uL (0.0-0.4); Eosinophils Percent Auto 3.7 % (0-4); Hematocrit 41.9 % (37.0-47.0); Hemoglobin 13.9 g/dl (12.0-16.0); Imm Gran Abs Auto 0.03 X10*3/uL (0.00-0.03); Imm Gran Pct Auto 0.4 % (0.0-0.4); Lymphocytes Absolute Auto 1.3 X10*3/uL (1.2-4.9); Lymphocytes Percent Auto 17.6 % (20-40); Mean Corpuscular HGB Conc 33.2 g/dl (31.0-35.0); Mean Corpuscular Hemoglobin 33.1 pg (27.0-33.0); Mean Corpuscular Volume 99.8 fL (80.0-98.0); Mean Platelet Volume 10.7 fL (9.4-12.3); Monocytes Absolute Auto 0.7 X10*3/uL (0.1-1.2); Monocytes Percent Auto 9.7 % (2-11); Neutrophils Absolute Auto 4.9 x10*3/uL (2.0-8.3); Platelet Count 205 X10*3/uL (160-400); Red Cell Distribution Width 13.5 % (11.0-16.0); White Blood Count 7.2 X10*3/uL (4.8-10.8)
[2024-07-22 08:46] LABS: B Type Natriuretic Peptide 157 pg/mL (<100)
[2024-07-22 09:06] LABS: Alanine Aminotransferase 8 U/L (0-31); Albumin Level 3.9 g/dL (3.5-5.0); Alkaline Phosphatase 81 U/L (39-117); Anion Gap 9 (12-20); Aspartate Amino Transferase 14 U/L (5-31); Bilirubin Total 0.3 mg/dL (0.0-1.0); Blood Urea Nitrogen 26 mg/dL (9-16); Calcium 9.4 mg/dL (8.4-10.2); Carbon Dioxide 30 mmol/L (22-29); Chloride 108 mmol/L (96-108); Estimated Glomerular Filt Rate 54; Glucose Random 109 mg/dL (60-115); Magnesium 2.6 mg/dL (1.6-2.6); Sodium 143 mmol/L (135-145); Total Protein 6.7 g/dL (6.5-8.0)
== END 2024-07-22 08:02 | disposition home or self-care (01) ==
LOC: HO.LAB 08:01
PROVIDERS: PCP Internal Medicine; Visit Provider Internal Medicine
DX: J44.9 Chronic obstructive pulmonary disease, unspecified (principal); E11.22 Type 2 diabetes mellitus with diabetic chronic kidney disease; I12.9 Hypertensive chronic kidney disease with stage 1 through stage 4 chronic kidney disease, or unspecified chronic kidney disease; N18.9 Chronic kidney disease, unspecified
CPT/HCPCS: 36415; 80053; 82550; 83735; 83880; 85025

== ENCOUNTER 2024-09-23 10:01 | Outpatient (AMB) | payer MEDICARE, SELFPAY ==
[2024-09-23 10:02] VITALS: BP 130/82; PULSE 104; O2SAT 92; BMI 48.3
--- NOTE | 2024-09-23 10:02 | MHC.OFFVIS ---
Vital Signs 09/23/24 10:02 Height 5 ft 5 in Weight 290 lb 8 oz BMI 48.3 BP 130/82 Blood Pressure Location Lt brachial Position Sitting Pulse 104 H Pulse Source Pulse Oximeter Pulse Oximetry (%) 92 Oxygen Delivery Method Room Air Intake Visit Reasons: solitary pulm nodule Allergies mold [MOLD] Allergy (Intermediate, Verified 09/23/24 10:05) COUGHING, SINUS CONGESTION Penicillins [PENICILLINS] Allergy (Intermediate, Verified 09/23/24 10:05) REVERSE REACTION MAKES PT FEEL WORSE HPI HPI solitary pulm nodule: Details: Izabel is an 84 year old female, never smoker, with underlying history of COPD, MAGAN refuses CPAP therapy, right sided heart failure followed by cardiology on bumex 2 mg BID and morbid obesity. At baseline she reports moderate control of symptoms on duoneb and formorterol. She reports over the last month worsening respiratory symptoms with productive cough with yellow sputum, increased dyspnea and wheezing. She denies fevers, chills or sick contacts. Of note, she did send back her supplemental oxygen as she found it to be disruptive to her daily activities. She is aware of the adverse effects of hypoxia. [facility] Medical History Right heart failure Chronic respiratory failure with hypoxia and hypercapnia Obstructive sleep apnea CAD (coronary artery disease) PVC (premature ventricular contraction) Morbid obesity Dyslipidemia Type 2 diabetes mellitus Lymphedema Hypertension COPD (chronic obstructive pulmonary disease) Arthritis Surgical History History of hysterectomy History of knee replacement Family History Mother Coronary artery disease Social History Household Members: Significant Other Housing: Apartment Do you presently have visiting nurse or other home services: No Alcohol intake: never Patient Tobacco Use Status: Never used Tobacco e-Cigarette/Vaping Use: Never Used Second Hand Smoke Exposure: No Advance Directives Date on File: 05/11/22 service: No Current occupational status: retired Review of Systems Const Denies chills, Denies excessive sweating, Denies fever(s), Denies headache(s) and Denies night sweats Eyes Denies dry eyes and Denies irritation ENT Reports Normal hearing present, Denies headache(s) and Reports nasal congestion Card Denies chest pain, Denies chest pain at rest, Denies chest pain with activity, Reports dyspnea, Reports dyspnea on exertion and Reports orthopnea Resp Denies change in phlegm color, Reports chest congestion, Reports cough, Denies hemoptysis, Reports excessive phlegm production, Denies pain on inspiration, Denies pain with cough, Reports dyspnea, Reports dyspnea on exertion, Denies stridor and Reports wheezing Musc Denies myalgias Neuro Reports Normal hearing present and Denies headache(s) Endo Denies excessive sweating Aller/Immun Denies seasonal rhinorrhea and Reports wheezing Physical Exam Vital Signs: Last Vital Signs Pulse 104 H 09/23/24 10:02 BP 130/82 09/23/24 10:02 Pulse Ox 92 09/23/24 10:02 Oxygen Delivery Method Room Air 09/23/24 10:02 BMI result Body Mass Index 48.3 Const General: cooperative and alert Nutritional Appearance: obese Orientation/consciousness: patient oriented x3 HEENT Head: Yes normal to inspection, Yes normocephalic and Yes atraumatic Ears: hearing grossly normal bilaterally and external ears normal Eyes Periorbital: periorbital findings abnormal bilateral Eyelids: Yes eyelid abnormality Sclerae: sclerae normal EOM: EOMs intact bilaterally Chest Chest palpation & inspection: normal inspection of the chest Resp Effort & Inspection: able to speak in complete sentences, Actively coughing Quality: wet, no stridor, not tachypneic, no tripod positioning and no use of accessory muscles Auscultation: no crackles, rhonchi throughout and diminished lung sounds Cardio Rate: regular rate Skin Other: warm, dry Neuro General: patient oriented x3 Cranial nerves: Yes Normal hearing present Cognition (Neuro): normal cognition Extrem Other: chronic lymphedema General: Yes pedal edema Psych Appearance: grossly normal and well kempt Speech and movement: Normal speech and movement present and Clear speech present Affect: normal affect Attitude: cooperative Thought process: Normal thought process present Thought content: Normal thought content present Insight: Good insight present (Psych) Judgement: Good judgement present (Psych) Office Procedures Nebulizer Treatment Nebulizer Treatment [id number]/MDI RX initial, or Nebulizer Subsequent Treatment Office Meds ipratropium 0.5 mg-albuterol 3 mg (2.5 mg base)/3 mL nebulization soln Performing Provider: Aida Quinn NP Performing Location: [facility] Administered by: Julita Stearns LPN on 09/23/24 10:25 Dose Route Admin Location Dispensed Lot Number Expiration Date NDC Mail Superintendent 3 mL inhalation 3 mL [id number] 02/01/26 01583-095-90 [employer] Assessment & Plan Assessment & Plan (1) COPD (chronic obstructive pulmonary disease): Code(s): J44.9 - Chronic obstructive pulmonary disease, unspecified Category: Medical Qualifiers: COPD type: COPD with acute exacerbation Qualified Code(s): J44.1 - Chronic obstructive pulmonary disease with (acute) exacerbation (2) Obstructive sleep apnea: Comment: Noncompliant with CPAP Code(s): G47.33 - Obstructive sleep apnea (adult) (pediatric) Category: Medical (3) Requires supplemental oxygen: Code(s): Z99.81 - Dependence on supplemental oxygen Category: Medical (4) Nocturnal hypoxemia: Code(s): G47.34 - Idiopathic sleep related nonobstructive alveolar hypoventilation Category: Medical (5) Lymphedema: Code(s): I89.0 - Lymphedema, not elsewhere classified Category: Medical (6) Right heart failure: Code(s): I50.810 - Right heart failure, unspecified Category: Medical Plan Izabel presents with continued bronchitic symptoms and on exam wheezing, rhonchi appreciated, mildly improved with DuoNeb. Will treat with prednisone and doxycyline. She is aware of symptoms worsen to seek emergent care. If symptoms do not improve after antibiotics, will obtain chest x-ray. Unfortunately, she has returned supplemental oxygen and continues to refuse CPAP therapy for MAGAN. She is aware of the adverse effects of hypoxia and not being compliant with these therapies. All questions were answered and patient is in agreement of plan. Will follow up in 6 weeks or sooner if needed. Orders: Orders AMB Nebulizer Treatment 09/23/24 J44.1 - Chronic obstructive pulmonary disease with (acute) exacerbation Medications: New ipratropium-albuterol 0.5 mg-3 mg(2.5 mg base)/3 mL 3 mL inhalation Q6H PRN 180 mL 6RF wheezing prednisone 40 mg (2 x 20 mg) PO DAILY 10 tabs 0RF doxycycline hyclate 100 mg PO BID 20 caps 0RF Coding Level of Care Code Est Pt Level 4 (40662) Diagnoses COPD (chronic obstructive pulmonary disease) J44.1 COPD type: COPD with acute exacerbation Obstructive sleep apnea G47.33 Requires supplemental oxygen Z99.81 Nocturnal hypoxemia G47.34 Lymphedema I89.0 Right heart failure I50.810 CPT Codes Nebulizer Treatment - Nebulizer Treatment, initial or subsequent: [id number] RX initial, or Nebulizer Subsequent Treatment ([id number])
== END 2024-09-23 10:51 | disposition home or self-care (01) ==
PROVIDERS: PCP Internal Medicine; Visit Provider Nurse Practitioner Family
DX: J44.1 Chronic obstructive pulmonary disease with (acute) exacerbation (principal); G47.33 Obstructive sleep apnea (adult) (pediatric); Z99.81 Dependence on supplemental oxygen; G47.34 Idiopathic sleep related nonobstructive alveolar hypoventilation; I89.0 Lymphedema, not elsewhere classified; I50.810 Right heart failure, unspecified
CPT/HCPCS: 99214

== ENCOUNTER → 2024-09-23 10:01 | Outpatient (BNVA) | payer MEDICARE, SELFPAY | PROVIDERS: PCP Internal Medicine; Visit Provider Nurse Practitioner Family | DX: J44.1 Chronic obstructive pulmonary disease with (acute) exacerbation (principal); R91.1 Solitary pulmonary nodule; G47.33 Obstructive sleep apnea (adult) (pediatric); G47.34 Idiopathic sleep related nonobstructive alveolar hypoventilation; I50.810 Right heart failure, unspecified; I89.0 Lymphedema, not elsewhere classified; E66.01 Morbid (severe) obesity due to excess calories; Z68.42 Body mass index [BMI] 45.0-49.9, adult; Z99.81 Dependence on supplemental oxygen | CPT/HCPCS: 94640; 99212 ==

== ENCOUNTER 2024-10-26 08:43 | Outpatient (REF) | payer MEDICARE, SELFPAY ==
--- OUTSIDE RECORDS SUMMARY | 2024-10-26 08:46 | XMS_ITS | Patient Health Record ---
Author Organization [facility] Address [address] [place] [address] Care Team Providers Care Software Firmware Engineer Name Role Phone Jovanny Carter MD Primary Care Provider Davon Lewis [phone] ALLERGIES Allergen (clinical drug ingredient) Drug/Non Drug Allergy documented on EMR Reaction Allergy Type Onset Date Status Penicillin Unknown Drug Allergy Active REASON FOR REFERRAL No Information MEDICATIONS Medication SIG (Take, Route, Frequency, Duration) Notes Start Date End Date Status Metoprolol Tartrate 25 MG 1 tablet with food Orally Twice a day for 30 day(s) Active Neomycin Sulfate 0.5 % as directed Externally Active Nitrofurantoin Macrocrystal 100 MG 1 capsule at bedtime with food or milk Orally Once a day for 10 day(s) Active Omeprazole Magnesium 20 MG 1 tablet 30 m inutes before morning meal Orally Once a day for 30 day(s) Active Omeprazole 20 MG 1 capsule 30 minutes before morning meal Orally Once a day for 30 day(s) Active traMADol HCl 50 MG 1 tablet as needed Orally Once a day Active oxyCODONE HCl 5 MG 1 tablet as needed Orally every 6 hrs Active Loratadine 10 MG 1 tablet Orally Once a day for 30 day(s) Active Pravastatin Sodium 40 MG 1 tablet Orally Once a day for 30 day(s) Active Furosemide 40 MG 2 tablet Orally Once a day Active PredniSONE (Carson) 10 MG as directed Orally Active Lisinopril 40 MG 1 tablet Orally Once a day for 30 day(s) Active Tiadylt ER 360 MG 1 capsule Orally Onc e a day for 30 day(s) Active Allopurinol 100 MG 1 tablet Orally Once a day for 30 day(s) Active Diltiazem HCl CD 360 MG 1 capsule Orally Once a day for 30 day(s) Active Gabapentin 300 MG 1 capsule Orally Onc e a day for 30 day(s) Active amLODIPine Besylate 10 MG 1 tablet Orall y Once a day for 30 day(s) Active Gemfibrozil 600 MG 1 tablet 30 minutes before morning and evening meals Orally Twice a day for 30 day(s) Active Atenolol 50 MG 1 tablet in am and 1 /2 tab in pm Orally Once a day Active Lidocaine 4 % 1 application as nee ded Externally Three times a day Active Azithromycin 250 MG as directed Orally Active Meloxicam 15 MG 1 tablet on the tong ue and allow to dissolve Orally Once a day for 30 day(s) Active metFORMIN HCl ER 500 MG 1 tablet with ev ening meal Orally Once a day for 30 day(s) Active metOLazone 2.5 MG 1 tablet Orally Once a day for 30 day(s) Active SOCIAL HISTORY Tobacco Use: Social History Observation Description Date Details (start date - stop date) Never Smoker NA - NA Sex Assigned At : Social History Observation Description Sex Assigned At Unknown Tobacco Use/Smoking Question Answer Notes Patient is a nonsmoker Alcohol Screen Question Answer Notes Did you have a drink containing alcohol in the p ast year? No Points 0 Interpretation Negative PROBLEMS Problem Type ICD Code Onset Dates Problem Status W/U Status Risk SNOMED Code Notes Problem Abnormal CT scan, stomach (R93.3) Active confirmed 143834944 Problem Abdominal pain, generalized (R10.84) Active confirmed 842905227 Problem Abdominal distention (R14.0) Active confirmed 08618716 Problem Weight loss (R63.4) Active confirmed 26230234 Problem Diarrhea, unspecified type (R19.7) Active confirmed 70393212 PLAN OF TREATMENT Pending Test Test Name Order Date CT ABD & PELVIS WITH PO CONT ONLY 2022 CT abdomen pelvis wo con 09/18/2023 Future Test Test Name Order Date UPPER GI ENDOSCOPY 04/05/2023 Insurance Providers Payer Name Payer Address Payer Phone Subscriber Number Group Number Insured Name Patient Relationship to Insured Coverage Start Date Coverage End Date [place] OF [place] [address] [place] [address] [id number] SHITAL DONG Self - patient is the insured MEDEX ATTN CLAIMS [address] [place] [address] [id number] SHITAL DONG Self - patient is the insured MEDICAL (GENERAL) HISTORY Medical History History ICD Code Reported [place] early Mar, 2023- transferred to [facility]-sees Dr. Gonzales. Has not had a cardiac cath. COPD NIDDM Hypertension Lymphedema of LE's Denies CVA,renal disease Reports a negative Cologuard in test 202 2 Gout Bronchitis CHF Bleeding ulcer with melena--describes transfusions many, many years ago Surgical History Surgery Date(Month/Year) PURNIMA Bilateral knee replacements in 2009 and 2015 Appendectomy
--- OUTSIDE RECORDS SUMMARY | 2024-10-26 08:46 | XMS_ITS ---
Author Organization [facility] Address [address] [place] [address] Care Team Providers Care Packager Machine Name Role Phone Jovanny Carter MD Primary Care Provider Davon Lewis [phone] REASON FOR VISIT Needs CT scan Encounters Encounter Location Date Provider Diagnosis [facility] [address] [place] [address] 07/17/[address] scan, stomach R93.3 ASSESSMENTS Encounter Date Diagnosis Assessment Notes Treatment Notes Treatment Clinical Notes 07/17/[address] scan, stomach (ICD-10 - R93.3) PLAN OF TREATMENT Pending Test Test Name Order Date CT ABD & PELVIS WITH PO CONT ONLY 2022
[2024-10-26 10:27] LABS: MANUAL DIFF FLAG NO
[2024-10-26 10:35] LABS: Basophils Absolute Auto 0.1 X10*3/uL (0.0-0.2); Basophils Percent Auto 0.8 % (0-2); Eosinophils Absolute Auto 0.2 X10*3/uL (0.0-0.4); Eosinophils Percent Auto 3.1 % (0-4); Hematocrit 43.8 % (37.0-47.0); Hemoglobin 14.1 g/dl (12.0-16.0); Imm Gran Abs Auto 0.02 X10*3/uL (0.00-0.03); Imm Gran Pct Auto 0.3 % (0.0-0.4); Lymphocytes Absolute Auto 1.4 X10*3/uL (1.2-4.9); Lymphocytes Percent Auto 17.8 % (20-40); Mean Corpuscular HGB Conc 32.2 g/dl (31.0-35.0); Mean Corpuscular Hemoglobin 32.4 pg (27.0-33.0); Mean Corpuscular Volume 100.7 fL (80.0-98.0); Mean Platelet Volume 10.9 fL (9.4-12.3); Monocytes Absolute Auto 0.9 X10*3/uL (0.1-1.2); Monocytes Percent Auto 11.6 % (2-11); Neutrophils Absolute Auto 5.1 x10*3/uL (2.0-8.3); Neutrophils Percent Auto 66.4 % (45-73); Platelet Count 224 X10*3/uL (160-400); Red Blood Count 4.35 X10*6/uL (4.20-5.50); Red Cell Distribution Width 13.5 % (11.0-16.0); White Blood Count 7.7 X10*3/uL (4.8-10.8)
[2024-10-26 10:46] LABS: Alanine Aminotransferase 10 U/L (0-31); Albumin Level 3.9 g/dL (3.5-5.0); Alkaline Phosphatase 84 U/L (39-117); Anion Gap 12 (12-20); Aspartate Amino Transferase 15 U/L (5-31); Bilirubin Total 0.3 mg/dL (0.0-1.0); Blood Urea Nitrogen 22 mg/dL (9-16); Calcium 9.1 mg/dL (8.4-10.2); Carbon Dioxide 31 mmol/L (22-29); Chloride 104 mmol/L (96-108); Estimated Glomerular Filt Rate 59; Glucose Random 64 mg/dL (60-115); Potassium 4.2 mmol/L (3.3-5.1); Sodium 143 mmol/L (135-145); Total Protein 6.9 g/dL (6.5-8.0)
[2024-10-26 10:49] LABS: Estimated Average Glucose 120 mg/dL; Hemoglobin A1C 141.9364 umol/L; Hemoglobin A1c % 5.8 % (<6.0); Total Hemoglobin (HGBA1C) 3555.4049 umol/L
== END 2024-10-26 08:44 | disposition home or self-care (01) ==
LOC: HO.10HDL 08:43
PROVIDERS: Visit Provider Internal Medicine
DX: N18.9 Chronic kidney disease, unspecified (principal); E11.9 Type 2 diabetes mellitus without complications; J44.9 Chronic obstructive pulmonary disease, unspecified; I89.0 Lymphedema, not elsewhere classified
CPT/HCPCS: 36415; 80053; 83036; 85025

== ENCOUNTER 2024-11-06 10:16 | Outpatient (AMB) | payer MEDICARE, SELFPAY ==
--- NOTE | 2024-11-06 10:17 | A.OFFVIS_ITS ---
Vital Signs 11/06/24 10:18 Height 5 ft 5 in Weight 285 lb 4 oz BMI 47.5 BP 148/76 H Blood Pressure Location Rt brachial Position Sitting Pulse 89 Pulse Source Pulse Oximeter Pulse Oximetry (%) 94 Oxygen Delivery Method Room Air Intake Visit Reasons: solitary pulm nodule Allergies mold [MOLD] Allergy (Intermediate, Verified 11/06/24 10:22) COUGHING, SINUS CONGESTION Penicillins [PENICILLINS] Allergy (Intermediate, Verified 11/06/24 10:22) REVERSE REACTION MAKES PT FEEL WORSE HPI HPI solitary pulm nodule: Details: Izabel is an 84 year old female, never smoker, with underlying history of COPD, MAGAN refuses CPAP therapy, right sided heart failure followed by cardiology on bumex 2 mg BID and morbid obesity. At baseline she reports moderate control of symptoms on duoneb and formorterol. At the last visit, she reported worsening respiratory symptoms with productive cough with yellow sputum, increased dyspnea and wheezing. She was prescribed doxycyline and prednisone, with improvements in dyspnea and wheezing however continues with productive cough with dark yellow sputum. She denies fevers, chills or sick contacts. She also notes that she has lost 12lbs since the last visit, likely due to improvements in fluid overload. She has been attending the [facility] clinic at [facility] with significant improvements especially LLE. She denies any visits to urgent care or hospitalizations since the last visit related to respiratory distress. [facility] Medical History Right heart failure Chronic respiratory failure with hypoxia and hypercapnia Obstructive sleep apnea CAD (coronary artery disease) PVC (premature ventricular contraction) Morbid obesity Dyslipidemia Type 2 diabetes mellitus Lymphedema Hypertension COPD (chronic obstructive pulmonary disease) Arthritis Surgical History History of hysterectomy History of knee replacement Family History Mother Coronary artery disease Social History Household Members: Significant Other Housing: Apartment Do you presently have visiting nurse or other home services: No Alcohol intake: never Patient Tobacco Use Status: Never used Tobacco e-Cigarette/Vaping Use: Never Used Second Hand Smoke Exposure: No Advance Directives Date on File: 05/11/22 service: No Current occupational status: retired Review of Systems Const Denies chills, Denies excessive sweating, Denies fever(s), Denies headache(s) and Denies night sweats Eyes Denies dry eyes and Denies irritation ENT Reports Normal hearing present, Denies headache(s) and Reports nasal congestion Card Denies chest pain, Denies chest pain at rest, Denies chest pain with activity, Reports dyspnea, Reports dyspnea on exertion and Reports orthopnea Resp Denies change in phlegm color, Reports chest congestion, Reports cough, Denies hemoptysis, Reports excessive phlegm production, Denies pain on inspiration, Denies pain with cough, Reports dyspnea, Reports dyspnea on exertion and Denies stridor Musc Denies myalgias Neuro Reports Normal hearing present and Denies headache(s) Endo Denies excessive sweating Aller/Immun Denies seasonal rhinorrhea Physical Exam Vital Signs: Last Vital Signs Pulse 89 11/06/24 10:18 BP 148/76 H 11/06/24 10:18 Pulse Ox 94 11/06/24 10:18 Oxygen Delivery Method Room Air 11/06/24 10:18 BMI result Body Mass Index 47.5 Const General: cooperative and alert Nutritional Appearance: obese Orientation/consciousness: patient oriented x3 HEENT Head: Yes normal to inspection, Yes normocephalic and Yes atraumatic Ears: hearing grossly normal bilaterally and external ears normal Eyes Periorbital: periorbital findings abnormal bilateral Eyelids: Yes eyelid abnormality Sclerae: sclerae normal EOM: EOMs intact bilaterally Chest Chest palpation & inspection: normal inspection of the chest Resp Effort & Inspection: able to speak in complete sentences, Actively coughing Quality: wet, no stridor, not tachypneic, no tripod positioning and no use of accessory muscles Auscultation: no crackles, no rales, no rhonchi, no wheezes and diminished lung sounds Cardio Rate: regular rate Skin Other: warm, dry Neuro General: patient oriented x3 Cranial nerves: Yes Normal hearing present Cognition (Neuro): normal cognition Extrem Other: chronic lymphedema General: Yes pedal edema Psych Appearance: grossly normal and well kempt Speech and movement: Normal speech and movement present and Clear speech present Affect: normal affect Attitude: cooperative Thought process: Normal thought process present Thought content: Normal thought content present Insight: Good insight present (Psych) Judgement: Good judgement present (Psych) Assessment & Plan Assessment & Plan (1) COPD (chronic obstructive pulmonary disease): Code(s): J44.9 - Chronic obstructive pulmonary disease, unspecified Category: Medical Qualifiers: COPD type: COPD with acute exacerbation Qualified Code(s): J44.1 - Chronic obstructive pulmonary disease with (acute) exacerbation (2) Obstructive sleep apnea: Comment: Noncompliant with CPAP Code(s): G47.33 - Obstructive sleep apnea (adult) (pediatric) Category: Medical (3) Requires supplemental oxygen: Code(s): Z99.81 - Dependence on supplemental oxygen Category: Medical (4) Nocturnal hypoxemia: Code(s): G47.34 - Idiopathic sleep related nonobstructive alveolar hypoventilation Category: Medical (5) Lymphedema: Code(s): I89.0 - Lymphedema, not elsewhere classified Category: Medical (6) Right heart failure: Code(s): I50.810 - Right heart failure, unspecified Category: Medical Plan Izabel presents with continued bronchitic symptoms will treat with levaquin, if no improvements will send for sputum, unable to produce today. She is aware of symptoms worsen to seek emergent care. Also encouraged use of acapella valve. All questions were answered and patient is in agreement of plan. Will follow up in 3 months or sooner if needed. Medications: New levofloxacin 500 mg PO DAILY 10 tabs 0RF Coding Level of Care Code Est Pt Level 4 (80264) Diagnoses COPD (chronic obstructive pulmonary disease) J44.1 COPD type: COPD with acute exacerbation Obstructive sleep apnea G47.33 Requires supplemental oxygen Z99.81 Nocturnal hypoxemia G47.34 Lymphedema I89.0 Right heart failure I50.810
[2024-11-06 10:18] VITALS: BP 148/76; PULSE 89; O2SAT 94; BMI 47.5
--- OUTSIDE RECORDS SUMMARY | 2024-11-06 11:34 | XMS_ITS ---
Author Organization [facility] Address [address] [place] [address] Care Team Providers Care Muffler Mechanic Name Role Phone Jovanny Carter MD Primary Care Provider Davon Lewis [phone] REASON FOR VISIT Needs CT scan Encounters Encounter Location Date Provider Diagnosis [facility] [address] [place] [address] 07/17/[address] scan, stomach R93.3 ASSESSMENTS Encounter Date Diagnosis Assessment Notes Treatment Notes Treatment Clinical Notes 07/17/[address] scan, stomach (ICD-10 - R93.3) PLAN OF TREATMENT Pending Test Test Name Order Date CT ABD & PELVIS WITH PO CONT ONLY 2022
--- OUTSIDE RECORDS SUMMARY | 2024-11-06 11:34 | XMS_ITS | Patient Health Record ---
Author Organization [facility] Address [address] [place] [address] Care Team Providers Care Organizational Psychologist Name Role Phone Jovanny Carter MD Primary Care Provider Davon Lewis [phone] ALLERGIES Allergen (clinical drug ingredient) Drug/Non Drug [...] Abnormal CT scan, stomach (R93.3) Active confirmed 733312785 Problem Abdominal pain, generalized (R10.84) Active confirmed 146569297 Problem Abdominal distention (R14.0) Active confirmed 95531876 Problem Weight loss (R63.4) Active confirmed 08922559 Problem Diarrhea, unspecified type (R19.7) Active confirmed 37335581 PLAN OF TREATMENT Pending Test Test Name Order Date CT ABD & PELVIS WITH PO CONT ONLY 2022 CT abdomen pelvis wo con 09/18/2023 Future Test Test Name Order Date UPPER GI ENDOSCOPY 04/05/2023 Insurance Providers Payer Name Payer Address Payer Phone Subscriber Number Group Number Insured Name Patient Relationship to Insured Coverage Start Date Coverage End Date MED[place]ARE OF [place] [address] [place] [address] [phone] [id number] SHITAL DONG Self - patient is the insured MEDEX ATTN CLAIMS [address] [place] [address] [phone] [id number] SHITAL DONG Self - patient is the insured MEDICAL (GENERAL) HISTORY Medical History History ICD Code Reported CT early Mar, 2023- transferred to [facility]-sees Dr. Gonzales. Has not had a cardiac cath. COPD NIDDM Hypertension Lymphedema of LE's Denies CVA,renal disease Reports a negative Cologuard in test 202 2 Gout Bronchitis CHF Bleeding ulcer with melena--describes transfusions many, many years ago Surgical History Surgery Date(Month/Year) PURNIMA Bilateral knee replacements in 2009 and 2015 Appendectomy
== END 2024-11-06 10:52 | disposition home or self-care (01) ==
PROVIDERS: PCP Internal Medicine; Visit Provider Nurse Practitioner Family
DX: J44.1 Chronic obstructive pulmonary disease with (acute) exacerbation (principal); G47.33 Obstructive sleep apnea (adult) (pediatric); Z99.81 Dependence on supplemental oxygen; G47.34 Idiopathic sleep related nonobstructive alveolar hypoventilation; I89.0 Lymphedema, not elsewhere classified; I50.810 Right heart failure, unspecified
CPT/HCPCS: 99214

== ENCOUNTER → 2024-11-06 10:16 | Outpatient (BNVA) | payer MEDICARE, SELFPAY | PROVIDERS: PCP Internal Medicine; Visit Provider Nurse Practitioner Family | DX: J44.1 Chronic obstructive pulmonary disease with (acute) exacerbation (principal); G47.33 Obstructive sleep apnea (adult) (pediatric); G47.34 Idiopathic sleep related nonobstructive alveolar hypoventilation; I89.0 Lymphedema, not elsewhere classified; I50.810 Right heart failure, unspecified; Z99.81 Dependence on supplemental oxygen | CPT/HCPCS: 99212 ==

== ENCOUNTER 2024-11-22 15:43 | Emergency (ER) | payer MEDICARE, SELFPAY ==
--- NOTE | ~2024-11-22 | CT_ITS ---
CLINICAL HISTORY: abdominal pain CT ABDOMEN AND PELVIS WITH CONTRAST Comparison: CT/SR - CT ABDOMEN PELVIS WO IV CON - 09/18/23 15:21 EST US - ABDOMEN ULTRASOUND [id number] - 09/12/17 08:29 EST Findings: Scattered atelectasis and/or scarring. No consolidation, pleural effusion or pneumothorax. No acute abnormalities in the solid organs. There is a 1.5 cm left hepatic cyst. There are several tiny hepatic hypodensities that are too small to accurately characterize. There is a 2 cm hypoattenuated lobular lesion in the spleen that is technically indeterminate. No splenomegaly or lymphadenopathy. There are several left renal cysts, the largest 2.6 cm. No renal or ureteral calculus. Differential attenuation in the gallbladder lumen suggests multiple small layering stones and/or thickened bile. Atherosclerotic changes in the aorta. No AAA. No bowel obstruction, pneumoperitoneum, or pneumatosis. Mild fluid distention of multiple small bowel loops with no abrupt transition point. Multiple diverticula throughout the colon with no significant paracolic edema. Appendix and uterus are not visualized. No free or loculated fluid collection. No acute fracture. IMPRESSION: 1. Small bowel ileus pattern. No obstruction or ascites. 2. Diverticulosis coli. No convincing evidence for acute diverticulitis. 3. No acute obstructive uropathy or urolithiasis. 4. Gallbladder sludge and/or stones. 5. Additional findings as above. This document has been electronically signed by: An Ledezma DO on 11/22/2024 19:12:35
[2024-11-22 16:00] VITALS: BP 130/62; PULSE 110; O2SAT 94
[2024-11-22 16:01] VITALS: BP 121/64; PULSE 100; RESP 18; TEMP 37.1; O2SAT 94; BMI 47.6
[2024-11-22 16:06] VITALS: BP 121/64; PULSE 100; RESP 18; TEMP 37.1; O2SAT 94
--- NOTE | 2024-11-22 16:07 | ED_ITS ---
HPI - General Adult General Chief complaint: Abdominal Pain Stated complaint: PT EXPIERIENCING RUQ, VOMITTING Time Seen by Provider: 11/22/24 15:58 Source: patient, family (patient's and daughter) and EMS Mode of arrival: EMS Limitations: no limitations History of Present Illness ED Provider: Neyda Barry PA-C HPI narrative: Patient is an 84 year old assigned female at with a history of COPD, CAD, and HTN presenting to the emergency department today with right upper quadrant abdominal pain. Patient states that over the last few hours she has had right upper quadrant abdominal pain with nausea and vomiting. Patient states that she does still have a gallbladder. Patient denies any dizziness, lightheadedness, fever, chills, blurry vision, double vision, loss of vision, chest pain, difficulty breathing, shortness of breath, back pain, night sweats, pain with urination, increased urinary frequency, increased urinary urgency, blood in her urine or stool, syncope or a near syncopal episode, recent trauma or falls, bowel incontinence, bladder incontinence, or any other complaints at this time. Onset (ago): hour(s) Location: abdomen and right Relieving factors: none Exacerbating factors: none Associated symptoms: nausea/vomiting Treatments prior to arrival: none Related Data Home Medications ?Medication ?Instructions ?Recorded ?Confirmed diltiazem HCl 360 mg capsule,24 360 mg PO DAILY 09/05/21 06/21/24 hr,extended release (Tiadylt ER) gemfibrozil 600 mg tablet 600 mg PO DAILY 09/05/21 06/21/24 omeprazole 20 mg capsule,delayed 20 mg PO DAILY@0630 09/05/21 06/21/24 release pravastatin 40 mg tablet 40 mg PO DAILY 09/05/21 06/21/24 guaifenesin 600 mg tablet, 600 mg PO Q12H 05/10/22 06/21/24 extended release 12 hr (Mucinex) metformin 500 mg tablet,extended 500 mg PO DAILY 07/10/23 06/21/24 release 24 hr ciprofloxacin HCl 0.3 % eye drops 2 drp ophthalmic (eye) TID 06/21/24 06/21/24 clotrimazole-betamethasone 1 1 appl topical BID PRN fungal 06/21/24 06/21/24 %-0.05 % topical cream infection furosemide 40 mg tablet 80 mg PO DAILY 06/21/24 06/21/24 gabapentin 300 mg capsule 300 mg PO BEDTIME 06/21/24 06/21/24 glucosamine sulfate 500 mg tablet 500 mg PO DAILY 06/21/24 06/21/24 (Glucosamine) meloxicam 15 mg tablet 15 mg PO DAILY 06/21/24 06/21/24 Previous Rx's ?Medication ?Instructions ?Recorded bumetanide 2 mg tablet 2 mg PO BID #180 tabs 12/19/23 doxycycline hyclate 100 mg capsule 100 mg PO BID #20 caps 09/23/24 ipratropium 0.5 mg-albuterol 3 mg 3 ml inhalation Q6H PRN wheezing 09/23/24 (2.5 mg base)/3 mL nebulization #180 mL soln prednisone 20 mg tablet 40 mg (2 x 20 mg) PO DAILY #10 tabs 09/23/24 ipratropium bromide 21 mcg (0.03 2 spray intranasal BID #30 mL 10/05/24 %) nasal spray levofloxacin 500 mg tablet 500 mg PO DAILY #10 tabs 11/06/24 cefuroxime axetil 250 mg tablet 250 mg PO BID 7 days #14 tabs 11/22/24 ondansetron 4 mg disintegrating 4 mg PO Q8H 3 days #9 tabs 11/22/24 tablet Allergies Allergy/AdvReac Type Severity Reaction Status Date / Time mold [MOLD] Allergy Intermediate COUGHING, Verified 11/22/24 16:03 SINUS CONGESTION Penicillins [PENICILLINS] Allergy Intermediate REVERSE Verified 11/22/24 16:03 REACTION MAKES PT FEEL WORSE Review of Systems 2 Constitutional: Constitutional: Reports no additional constitutional complaints, Denies chills, Denies fever(s) and Denies night sweats Eyes: Eyes: Reports no additional eye complaints, Denies blurry vision, Denies change in vision, Denies diplopia, Denies eye discharge, Denies loss of vision and Denies eye pain ENT: Denies dizziness Cardiovascular: Cardiovascular: Reports no additional cardiovascular complaints, Denies chest pain, Denies lightheadedness, Denies Loss of Consciousness and Denies dyspnea Respiratory: Respiratory: Reports no additional respiratory complaints and Denies dyspnea Gastrointestinal: Gastrointestinal: Reports no additional gastrointestinal complaints, Reports abdominal pain, Denies melena, Denies hematochezia, Denies change in bowel habits, Denies change in stool character, Reports nausea and Reports vomiting Genitourinary: Genitourinary: Denies hematuria, Denies urinary frequency, Denies dysuria, Denies urinary incontinence, Denies urinary hesitancy and Denies urinary urgency Musculoskeletal: Musculoskeletal: Reports no additional musculoskeletal complaints, Denies numbness and Denies tingling Neurologic: Denies dizziness, Denies loss of vision, Denies numbness and Denies tingling Psychiatric: Psychiatric: Reports no additional psychiatric complaints Endocrine: Endocrine: Reports no additional endocrine complaints Hematologic/Lymphatic: Hematologic/Lymphatic: Reports no additional hematologic/lymphatic complaints Allergic/Immunologic: Allergic/Immunologic: Reports no additional allergic/immunologic complaints PMFSH Past Medical History Attestation statement: The following information was validated with the patient. (patient's and daughter validated all information) Source: old records reviewed, obtained from family (patient's and daughter provided additional history and confirmed the history provided by the patient.) and nursing notes reviewed Medical History Right heart failure Chronic respiratory failure with hypoxia and hypercapnia Obstructive sleep apnea CAD (coronary artery disease) PVC (premature ventricular contraction) Morbid obesity Dyslipidemia Type 2 diabetes mellitus Lymphedema Hypertension COPD (chronic obstructive pulmonary disease) Arthritis Surgical History History of hysterectomy History of knee replacement Family History Family History Mother Coronary artery disease Social History Social History Household Members: Significant Other Housing: Apartment Do you presently have visiting nurse or other home services: No Alcohol intake: never Patient Tobacco Use Status: Never used Tobacco Smoked in Last 30 Days: No e-Cigarette/Vaping Use: Never Used Second Hand Smoke Exposure: No Use of substances other than those prescribed or required for medical reasons: No Advance Directives: Yes Advance Directives on File: Yes Advance Directives Date on File: 05/11/22 Do you have a plan to hurt others: No Plan service: No Current occupational status: retired Physical Exam ED Vital Signs: Vital Signs - 24 hr 11/22/24 16:01 11/22/24 16:06 11/22/24 17:30 Temperature 98.8 F 98.8 F Pulse Rate 100 100 Respiratory Rate 18 18 18 Blood Pressure 121/64 121/64 Pulse Oximetry 94 94 Oxygen Delivery Method Room Air Room Air 11/22/24 19:42 11/22/24 19:59 Temperature 98.4 F 98.4 F Pulse Rate 89 89 Respiratory Rate 24 H 24 H Blood Pressure 133/64 133/64 Pulse Oximetry 91 L 91 L Oxygen Delivery Method Room Air Room Air BMI result Body Mass Index 47.6 Const General: cooperative, no acute distress, alert and awake Nutritional Appearance: well nourished Orientation/consciousness: patient oriented x3 Limitations: no limitations HENMT Head: Yes normal to inspection and Yes atraumatic Ears: hearing grossly normal bilaterally and external ears normal General nose exam: Normal external nose present, no nasal discharge noted and no epistaxis Face and sinus: Yes normal facial exam, No abrasion and No laceration Mouth: Normal oral and palatal mucosa present, no drooling and no muffled voice Eyes General: appearance normal, both eyes and all related structures Periorbital: periorbital findings normal Eyelids: Yes eyelids normal Conjunctivae: conjunctivae normal Pupils: Equal, round and reactive pupils present EOM: EOMs intact bilaterally Neck Neck: Yes normal visual inspection, Yes full ROM and Yes no lymphadenopathy Chest Chest palpation & inspection: normal inspection of the chest Resp Effort & Inspection: normal respiratory effort and able to speak in complete sentences GI Inspection: Yes normal to inspection Palpation (GI): Soft to palpation, not firm, Tenderness to palpation present (GI) in the RUQ, no guarding and not rigid Neuro General: patient oriented x3 and moves all extremities Cranial nerves: Yes Equal, round and reactive pupils present Cognition (Neuro): normal cognition Extrem General: Yes normal to inspection, Yes full ROM and Yes capillary refill normal Psych Appearance: grossly normal Mental Status: mental status grossly normal Affect: normal affect Attitude: cooperative Thought process: Normal thought process present Thought content: Normal thought content present Insight: Good insight present (Psych) Medications Administered Discontinued Medications Generic Name Dose Route Start Last Admin Trade Name Freq PRN Reason Stop Dose Admin Iohexol 100 ml 11/22/24 17:27 11/22/24 17:28 Iohexol 350 Mg/Ml 100 Ml Infus..Btl IV 11/22/24 17:28 100 ml ONCE ONE Administration Morphine Sulfate 4 mg 11/22/24 16:09 11/22/24 17:30 Morphine Sulfate 4 Mg/Ml Cartridge IVPUSH 11/22/24 16:10 4 mg ONCE ONE Administration Protocol Ondansetron HCl 4 mg 11/22/24 16:09 11/22/24 17:30 Ondansetron Hcl 4 Mg/2 Ml Vial IVPUSH 11/22/24 16:10 4 mg ONCE ONE Administration Medical Decision Making Medical Decision Making [facility] Narrative: Patient is an 84 year old assigned female at with a history of COPD, CAD, and HTN presenting to the emergency department today with right upper quadrant abdominal pain. Patient's physical exam showed right upper quadrant pain with palpation but was otherwise unremarkable. Patient's blood work showed a slightly elevated WBC count of 11.3 but were otherwise unremarkable. Patient's urine showed evidence of an acute UTI. Patient's EKG was unremarkable. Patient's CT abdomen/pelvis showed a small bowel ileus pattern with no evidence of obstruction or ascites, divertulosis with no evidence of acute diverticulitis, gallbladder sludge/stones with no evidence of cholelithiasis, and multiple incidental findings including a 1.5cm left hepatic lobe cyst, several tiny hepatic hypodensities that are too small to accurately characterize, 2cm hypoattentuated lobular lesion in the spleen that is technically indeterminate, and several left renal cysts with the largest measuring 2.6cm. I spoke to the general surgeon area field person, Dr. Pickering, who recommended discharge with strict return precautions and treating the patients UTI. I explained my physical exam findings as well as all test results to the patient, the patient's , and the patient's daughter. I answered all questions asked by the patient, the patient's , and the patient's daughter. Patient received IV moprhine which, upon re-evaluation, she stated it helped her pain significantly. I stressed the importance of the patient taking her medication as directed (either prescribed or as the over the counter packaging recommends). I stressed the importance of the patient following up with her primary care provider and the general surgeon. I stressed the importance of the patient returning to the emergency department immediately if her symptoms were to worsen or if she were to develop any dizziness, shortness of breath, difficulty breathing, chest pain, blurry vision, loss of vision, nausea, vomiting, abdominal pain, fever, chills, back pain, or any other complaints. Patient, the patient's , and the patient's daughter verbalized agreement and understanding with this treatment plan and discharge. Differential Diagnosis Differential Diagnoses: The differential diagnosis associated with the presentation includes Ileus UTI Gallstones Gallbladder sludge Biliary colic Admission/Observation Consideration of admission/observation: Escalation of care including admission/observation considered Patient would have been admitted to the hospital had her work up had any findings where hospital admission was appropriate and her clinical presentation warranted hospital admission. Consult Healthcare Provider Management of the patient was discussed with: Corn Cutter Operator (I spoke to the general surgeon, Dr. Pickering, as noted in the MDM Rationale portion of this note.) Lab Data [facility] Lab Attestation statement: I reviewed the patient's lab results. My interpretation of these results are in the MDM Rationale portion of this note. 11/22/24 16:30 11/22/24 16:30 Labs: Lab Results 11/22/24 11/22/24 11/22/24 Range/Units 16:03 16:30 17:35 WBC 11.3 H (4.8-10.8) X10*3/uL RBC 4.72 (4.20-5.50) X10*6/uL Hgb 15.2 (12.0-16.0) g/dl Hct 45.5 (37.0-47.0) % MCV 96.4 (80.0-98.0) fL MCH 32.2 (27.0-33.0) pg MCHC 33.4 (31.0-35.0) g/dl RDW 14.0 (11.0-16.0) % Plt Count 192 (160-400) X10*3/uL MPV 10.5 (9.4-12.3) fL Immature Gran % (Auto) 0.4 (0.0-0.4) % Neut % (Auto) 90.8 H (45-73) % Lymph % (Auto) 2.1 L (20-40) % [place] % (Auto) 4.7 (2-11) % Eos % (Auto) 1.8 (0-4) % Baso % (Auto) 0.2 (0-2) % Lymph # (Auto) 0.2 L (1.2-4.9) X10*3/uL [place] # (Auto) 0.5 (0.1-1.2) X10*3/uL Eos # (Auto) 0.2 (0.0-0.4) X10*3/uL Baso # (Auto) 0.0 (0.0-0.2) X10*3/uL Abs Immat Gran (auto) 0.04 H (0.00-0.03) X10*3/uL Absolute Neuts (auto) 10.3 H (2.0-8.3) x10*3/uL Absolute Nucleated RBC 0.000 (0.0-0.012) X10*3/uL Nucleated RBC % (auto) 0.0 (0.0-0.2) /100WBC Smear Tech's Comments VERIFIED PT 11.1 (10.9-12.4) SEC INR 1.0 (0.9-1.1) APTT 34.5 (26.0-36.8) SEC Sodium 142 (135-145) mmol/L Potassium 3.9 (3.3-5.1) mmol/L Chloride 106 (96-108) mmol/L Carbon Dioxide 26 (22-29) mmol/L Anion Gap 14 (12-20) BUN 23 H (9-16) mg/dL Creatinine 0.78 (0.5-1.4) mg/dL Estim Creat Clear Calc 75.6 Estimated GFR > 60 POC Glucose 130 H (60-115) mg/dL Random Glucose 108 (60-115) mg/dL Calcium 8.8 (8.4-10.2) mg/dL Magnesium 2.2 (1.6-2.6) mg/dL Total Bilirubin 0.4 (0.0-1.0) mg/dL AST 20 (5-31) U/L ALT 12 (0-31) U/L Alkaline Phosphatase 82 (39-117) U/L Troponin I High Sens 4.6 (<3.5-17.0) ng/L Total Protein 7.1 (6.5-8.0) g/dL Albumin 4.0 (3.5-5.0) g/dL Urine Color Yellow Urine Appearance Cloudy Urine pH 6.5 (5.0-9.0) Ur Specific [place] 1.020 (1.005-1.025) Urine Protein Negative (Neg-Trace) mg/dL Urine Glucose (UA) Negative (Negative) mg/dL Urine Ketones Negative (Negative) mg/dL Urine Blood Negative (Negative) Urine Nitrite Positive H (Negative) Ur Leukocyte Esterase Small (1+) H (Negative) Urine RBC 0-2 (0-2) /HPF Urine WBC 0-5 (0-5) /HPF Ur Squamous Epith Cells 6-10 (0-2) /HPF Urine Bacteria 4+ (None Seen) Hyaline Casts 3-5 (0-2) /LPF Influenza Type A (PCR) NEGATIVE (Negative) Influenza Type B (PCR) NEGATIVE (Negative) RSV RNA Qual (PCR) NEGATIVE (Negative) SARS-CoV-2 RNA (RT-PCR) NEGATIVE (Negative) Independent Interpretation I performed an independent interpretation of an: EKG and CT Scan Interpretation: My interpretation is in agreement with the radiologist's impression of these imaging studies. L Report Number: [id number]: Total DLP = 1132.00 mGy-cm CLINICAL HISTORY: abdominal pain CT ABDOMEN AND PELVIS WITH CONTRAST Comparison: CT/SR - CT ABDOMEN PELVIS WO IV CON - 09/18/23 15:21 EST US - ABDOMEN ULTRASOUND [id number] - 09/12/17 08:29 EST Findings: Scattered atelectasis and/or scarring. No consolidation, pleural effusion or pneumothorax. No acute abnormalities in the solid organs. There is a 1.5 cm left hepatic cyst. There are several tiny hepatic hypodensities that are too small to accurately characterize. There is a 2 cm hypoattenuated lobular lesion in the spleen that is technically indeterminate. No splenomegaly or lymphadenopathy. There are several left renal cysts, the largest 2.6 cm. No renal or ureteral calculus. Differential attenuation in the gallbladder lumen suggests multiple small layering stones and/or thickened bile. Atherosclerotic changes in the aorta. No AAA. No bowel obstruction, pneumoperitoneum, or pneumatosis. Mild fluid distention of multiple small bowel loops with no abrupt transition point. Multiple diverticula throughout the colon with no significant paracolic edema. Appendix and uterus are not visualized. No free or loculated fluid collection. No acute fracture. IMPRESSION: 1. Small bowel ileus pattern. No obstruction or ascites. 2. Diverticulosis coli. No convincing evidence for acute diverticulitis. 3. No acute obstructive uropathy or urolithiasis. 4. Gallbladder sludge and/or stones. 5. Additional findings as above. This document has been electronically signed by: An Ledezma DO on 11/22/2024 19:12:35 Dictated By: An Ledezma MD Signed By: Electronically signed by An Ledezma MD 11/22/241912 Vent. Rate: 100 BPM Atrial Rate: 100 BPM P-R Int: 196 ms QRS Dur: 86 ms QT Int: 394 ms P-R-T Axes: 36 -19 35 degrees QTcB Int: 508 ms Normal sinus rhythm Possible Left atrial enlargement Left ventricular hypertrophy ( R in aVL , Wai product ) Inferior infarct, age undetermined When compared with ECG of 21-Jun-2024 09:37, Premature ventricular complexes are no longer Present Nonspecific T wave abnormality has replaced inverted T waves in Lateral leads DD/ 1634 Radiology Impression Discussion of test interpretation with radiology: I have reviewed the radiologist's reading. Independent Historian Clinical information obtained from an independent historian. History obtained from or confirmed by: Spouse (patient's provided additional history and confirmed the history provided by the patient.) and Other (patient's daughter provided additional history and confirmed the history provided by the patient.) Prescription Management I considered prescription management with: Antibiotic (patient prescribed an antibiotic for UTI) Chronic Conditions Patient?s care impacted by: Hypertension Critical Care Time Critical Care Time Critical Care Time: Yes Total Critical Care Time: 37 Attestation: I spent 37 minutes of Critical Care Time with this patient. This does not include time spent on separately reported billable procedures. Discharge Plan Discharge Clinical Impression: Acute UTI, Ileus, Gallstones Patient Disposition: Home, Self-Care Instructions: Gallstones (ED), Urinary Tract Infection in Women (DC), Ileus (ED) Additional Instructions: Your CT scan of the abdomen/pelvis showed acute findings including: An Ileus of the small bowel with no evidence of obstruction Gallbladder sludge and stones Both of the above things you should follow up with a general surgeon. Your CT scan of the abdomen/pelvis also showed incidental findings includin.5cm left hepative (liver) cyst with several tiny hepatic hypodensities that are too small to accurately characterize 2cm hypoattenuated lobular lesion in the spleen that is technically indeterminate Several left renal cysts with the largest measuring 2.6cm You should follow up with your primary care provider for the above things. Take your medicine as prescribed. Follow up with your primary care provider and a general surgeon. Return to the emergency department immediately if your symptoms worsen or if you develop any dizziness, shortness of breath, difficulty breathing, chest pain, blurry vision, loss of vision, nausea, vomiting, abdominal pain, fever, chills, back pain, or any other complaints. Prescriptions: New cefuroxime axetil 250 mg tablet 250 mg PO BID 7 Days Qty: 14 0RF ondansetron 4 mg tablet,disintegrating 4 mg PO Q8H 3 Days Qty: 9 0RF No Action bumetanide 2 mg tablet 2 mg PO BID Qty: 180 3RF ipratropium bromide 21 mcg (0.03 %) spray,non-aerosol 2 spray intranasal BID Qty: 30 1RF pravastatin 40 mg tablet 40 mg PO DAILY diltiazem HCl [Tiadylt ER] 360 mg capsule,extended release 24 hr 360 mg PO DAILY gemfibrozil 600 mg tablet 600 mg PO DAILY omeprazole 20 mg capsule,delayed release(DR/EC) 20 mg PO DAILY@0630 metformin 500 mg tablet extended release 24 hr 500 mg PO DAILY guaifenesin [Mucinex] 600 mg Tablet Extended Release 12hr 600 mg PO Q12H furosemide 40 mg tablet 80 mg PO DAILY meloxicam 15 mg tablet 15 mg PO DAILY glucosamine sulfate [Glucosamine] 500 mg Tablet 500 mg PO DAILY Rx Instructions: administer with a meal ciprofloxacin HCl 0.3 % drops 2 drp ophthalmic (eye) TID Rx Instructions: both eyes clotrimazole-betamethasone 1-0.05 % cream 1 appl topical BID PRN (Reason: fungal infection) gabapentin 300 mg capsule 300 mg PO BEDTIME ipratropium-albuterol 0.5 mg-3 mg(2.5 mg base)/3 mL solution for nebulization 3 ml inhalation Q6H PRN (Reason: wheezing) Qty: 180 6RF prednisone 20 mg tablet 40 mg PO DAILY Qty: 10 0RF doxycycline hyclate 100 mg capsule 100 mg PO BID Qty: 20 0RF levofloxacin 500 mg tablet 500 mg PO DAILY Qty: 10 0RF Referrals: [facility] [place] [facility] [place] Group] (Call to establish and follow up with a general surgeon to follow up on your ileus and gallstones / sludge.) Jovanny Carter MD [Primary Care Provider] - Interventions: ED Discharge Assessment Last Done: 11/22/24 19:59 Discharge Date/Time: 11/22/24 19:59 Print Language: Emirati
[2024-11-22 16:08] LABS: Glucose, Whole Blood 130 mg/dL (60-115)
--- NOTE | 2024-11-22 16:09 | ECG_ITS ---
Test Reason : abd pain Blood Pressure : */* mmHG Vent. Rate : 100 BPM Atrial Rate : 100 BPM P-R Int : 196 ms QRS Dur : 86 ms QT Int : 394 ms P-R-T Axes : 36 -19 35 degrees QTcB Int : 508 ms Normal sinus rhythm Possible Left atrial enlargement Left ventricular hypertrophy ( R in aVL , Wai product ) Inferior infarct , age undetermined Abnormal ECG When compared with ECG of 21-Jun-2024 09:37, Premature ventricular complexes are no longer Present Inferior infarct is now Present Nonspecific T wave abnormality has replaced inverted T waves in Lateral leads Referred By: Neyda Barry Electronically Signed By: KATELYNN SHIN MD
[2024-11-22 16:35] LABS: Basophils Percent Auto 0.2 % (0-2); Eosinophils Absolute Auto 0.2 X10*3/uL (0.0-0.4); Eosinophils Percent Auto 1.8 % (0-4); Hematocrit 45.5 % (37.0-47.0); Hemoglobin 15.2 g/dl (12.0-16.0); Imm Gran Abs Auto 0.04 X10*3/uL (0.00-0.03); Imm Gran Pct Auto 0.4 % (0.0-0.4); Lymphocytes Absolute Auto 0.2 X10*3/uL (1.2-4.9); Lymphocytes Percent Auto 2.1 % (20-40); MANUAL DIFF FLAG SCAN; Mean Corpuscular HGB Conc 33.4 g/dl (31.0-35.0); Mean Corpuscular Hemoglobin 32.2 pg (27.0-33.0); Mean Corpuscular Volume 96.4 fL (80.0-98.0); Mean Platelet Volume 10.5 fL (9.4-12.3); Monocytes Absolute Auto 0.5 X10*3/uL (0.1-1.2); Monocytes Percent Auto 4.7 % (2-11); Neutrophils Absolute Auto 10.3 x10*3/uL (2.0-8.3); Neutrophils Percent Auto 90.8 % (45-73); Platelet Count 192 X10*3/uL (160-400); Red Blood Count 4.72 X10*6/uL (4.20-5.50); SCAN SMEAR FLAG 1; White Blood Count 11.3 X10*3/uL (4.8-10.8)
[2024-11-22 16:46] LABS: Prothrombin Time 11.1 SEC (10.9-12.4)
[2024-11-22 16:49] LABS: Partial Thromboplastin Time 34.5 SEC (26.0-36.8)
[2024-11-22 16:55] LABS: SLIDE REVIEW VERIFIED
[2024-11-22 16:59] LABS: Alanine Aminotransferase 12 U/L (0-31); Alkaline Phosphatase 82 U/L (39-117); Anion Gap 14 (12-20); Aspartate Amino Transferase 20 U/L (5-31); Bilirubin Total 0.4 mg/dL (0.0-1.0); Blood Urea Nitrogen 23 mg/dL (9-16); Calcium 8.8 mg/dL (8.4-10.2); Carbon Dioxide 26 mmol/L (22-29); Chloride 106 mmol/L (96-108); Creatinine Clr Calc Pharmacy 75.6; Estimated Glomerular Filt Rate > 60; Glucose Random 108 mg/dL (60-115); Magnesium 2.2 mg/dL (1.6-2.6); Potassium 3.9 mmol/L (3.3-5.1); Sodium 142 mmol/L (135-145); Total Protein 7.1 g/dL (6.5-8.0)
[2024-11-22 17:06] LABS: Troponin-I High Sensitivity 4.6 ng/L (<3.5-17.0)
[2024-11-22 17:13] LABS: Influenza A PCR NEGATIVE (Negative); Influenza B PCR NEGATIVE (Negative); Resp Syncy Virus RNA Qual PCR NEGATIVE (Negative); SARS COV2 PCR INHOUSE NEGATIVE (Negative)
[2024-11-22] MEDS: iohexoL 350 MG/ML 100 ML INFUS..BTL IV (17:28)
[2024-11-22 17:30] VITALS: RESP 18
[2024-11-22] MEDS: Morphine Sulfate 4 MG/ML CARTRIDGE IVPUSH (17:30)
[2024-11-22] MEDS: ondansetron HCL 4 MG/2 ML VIAL IVPUSH (17:30)
[2024-11-22 17:44] LABS: Appearance Urine Cloudy; Color Urine Yellow; Glucose Urine UA Negative (Negative); Leukocyte Esterase Urine Small (1+) (Negative); Nitrite Urine Positive (Negative); PH 6.5 (5.0-9.0); UMIC TRIGGER UACC YES; Urine Blood Negative (Negative); Urine Ketones Negative (Negative); Urine Protein Negative (Neg-Trace)
[2024-11-22 17:58] LABS: Bacteria Urine 4+ (None Seen); RBC Urine 0-2 /HPF (0-2); UACC Culture Trigger YES; WBC Urine 0-5 /HPF (0-5)
[2024-11-22 19:42] VITALS: BP 133/64; PULSE 89; RESP 24; TEMP 36.9; O2SAT 91
[2024-11-22 19:59] VITALS: BP 133/64; PULSE 89; RESP 24; TEMP 36.9; O2SAT 91
== END 2024-11-22 19:59 | disposition home or self-care (01) ==
PROVIDERS: Physician Assistant Medical; Emergency Provider Internal Medicine; PCP Internal Medicine
DX: K85.10 Biliary acute pancreatitis without necrosis or infection (principal); K56.7 Ileus, unspecified; N39.0 Urinary tract infection, site not specified; R10.2 Pelvic and perineal pain; R10.11 Right upper quadrant pain; R94.31 Abnormal electrocardiogram [ECG] [EKG]; I25.10 Atherosclerotic heart disease of native coronary artery without angina pectoris; I10 Essential (primary) hypertension; Z03.818 Encounter for observation for suspected exposure to other biological agents ruled out; Z79.899 Other long term (current) drug therapy
CPT/HCPCS: 0241U; 74177; 80053; 81001; 82947; 83735; 84484; 85025; 85610; 85730; 87086; 87088; 87186; 93005; 96374; 96375; 99284; 99285; J2270; J2405; Q9967

== ENCOUNTER → 2024-11-22 16:09 | Outpatient (BNV) | payer MEDICARE, SELFPAY | PROVIDERS: Emergency Provider Internal Medicine; PCP Internal Medicine; Visit Provider Internal Medicine Cardiovascular Disease | DX: R94.31 Abnormal electrocardiogram [ECG] [EKG] (principal) | CPT/HCPCS: 93010 ==

== ENCOUNTER → 2024-11-22 16:09 | Outpatient (BNV) | payer MEDICARE, SELFPAY | PROVIDERS: Emergency Provider Internal Medicine; PCP Internal Medicine; Visit Provider Radiology Diagnostic Radiology | DX: K57.30 Diverticulosis of large intestine without perforation or abscess without bleeding (principal); K56.7 Ileus, unspecified | CPT/HCPCS: 74177 ==

== ENCOUNTER 2024-11-26 14:50 | Outpatient (AMB) | payer MEDICARE, SELFPAY ==
--- NOTE | 2024-11-26 14:55 | A.OFFVIS_ITS ---
Vital Signs 11/26/24 15:09 Height 5 ft 7 in BMI Reason not done Patient refused/unable Intake Visit Reasons: Right upper quad abdominal pain/gallstones Intake Note: This patient presents for [facility] emergency department follow-up for RUQ pain, gallstones. Pt c/o; RUQ pain radiates towards back, nausea, reports no vomiting, no appetite, reports constipation. 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 Accompanied by: Spouse Allergies mold [MOLD] Allergy (Intermediate, Verified 11/26/24 15:10) COUGHING, SINUS CONGESTION Penicillins [PENICILLINS] Allergy (Intermediate, Verified 11/26/24 15:10) REVERSE REACTION MAKES PT FEEL WORSE Medication List - Last Reconciled 11/26/24 by Jovanny Beasley MD bumetanide 2 mg PO BID cefuroxime axetil 250 mg PO BID 7 days ciprofloxacin HCl 0.3% 2 drps ophthalmic (eye) TID clotrimazole-betamethasone 1-0.05 % 1 appl topical BID PRN diltiazem HCl ER (Tiadylt ER) 360 mg PO DAILY doxycycline hyclate 100 mg PO BID furosemide 80 mg PO DAILY gabapentin 300 mg PO BEDTIME gemfibrozil 600 mg PO DAILY glucosamine sulfate (Glucosamine) 500 mg PO DAILY guaifenesin ER (Mucinex) 600 mg PO Q12H ipratropium bromide 2 sprays intranasal BID ipratropium-albuterol 0.5 mg-3 mg(2.5 mg base)/3 mL 3 mL inhalation Q6H PRN levofloxacin 500 mg PO DAILY meloxicam 15 mg PO DAILY metformin ER 500 mg PO DAILY omeprazole 20 mg PO DAILY@0630 ondansetron 4 mg PO Q8H 3 days pravastatin 40 mg PO DAILY prednisone 40 mg (2 x 20 mg) PO DAILY HPI HPI Right upper quad abdominal pain/gallstones: Details: 84 year old female referred for gallstones. She actually went to the ER 3 days ago because of what she describes as pain on the right ribs. She said this has been going on for a few weeks now. She says that this seemed to be worse with deep breaths. She says that this is very tender to touch as well She also had a CAT scan done which showed question of sludge versus gallstones. There was no inflammatory process in the gallbladder. Her labs were normal then She does have multiple medical problems including COPD, severe arthritis, is on home O2, coronary artery disease right heart failure and morbid obesity. She has a poor baseline level of function. She uses a cane to ambulate and is only able to ambulate for short distances. [facility] Medical History Right heart failure Chronic respiratory failure with hypoxia and hypercapnia Obstructive sleep apnea CAD (coronary artery disease) PVC (premature ventricular contraction) Morbid obesity Dyslipidemia Type 2 diabetes mellitus Lymphedema Hypertension COPD (chronic obstructive pulmonary disease) Arthritis Surgical History History of hysterectomy History of knee replacement Family History Mother Coronary artery disease Social History Household Members: Significant Other Housing: Apartment Do you presently have visiting nurse or other home services: No Alcohol intake: never Patient Tobacco Use Status: Never used Tobacco e-Cigarette/Vaping Use: Never Used Second Hand Smoke Exposure: No Advance Directives Date on File: 05/11/22 service: No Current occupational status: retired Review of Systems Const Denies chills and Denies fever(s) Card Denies chest pain, Reports dyspnea and Reports dyspnea on exertion Resp Denies cough, Reports dyspnea and Reports dyspnea on exertion GI Denies hematochezia and Denies change in bowel habits Denies hematuria Musc Denies back pain and Denies limited range of motion Neuro Denies focal weakness and Denies convulsions Psych Denies depression and Denies mood swings Physical Exam Const Other: Morbidly obese, frail looking, walks very slowly with a walker and is currently on a wheelchair Resp Other: Appears short of breath as baseline Cardio Rhythm: regular rhythm GI Other: Very obese, soft, tender on the lower most ribs from the front to the back Assessment & Plan Assessment & Plan (1) Gallstones: Code(s): K80.20 - Calculus of gallbladder without cholecystitis without obstruction Category: Medical Plan: I am uncertain if her pain is from her gallstones as she actually is very tender along the ribs. This is suggestive of costochondritis Her CT scan is equivocal for gallstones as well. There were no inflammatory changes Nevertheless, she does appear to present with perioperative risk for surgery. I would not recommend going ahead with cholecystectomy at this time. She is unable to decline without getting short of breath. She actually sleeps in a reclining position. She was coronary disease as well as severe pulmonary issues. I explained the above to her and the patient herself In the meantime, because of her rib tenderness, I instructed her take some ibuprofen or NSAIDs. She can follow up with me on a p.r.n. basis. Coding Level of Care Code New Pt Level 3 (83059) Diagnoses Gallstones K80.20
== END 2024-11-26 14:58 | disposition home or self-care (01) ==
PROVIDERS: PCP Internal Medicine; Visit Provider Surgery
DX: K80.20 Calculus of gallbladder without cholecystitis without obstruction (principal)
CPT/HCPCS: 99203

== ENCOUNTER → 2024-11-26 14:50 | Outpatient (BNVA) | payer MEDICARE, SELFPAY | PROVIDERS: PCP Internal Medicine; Visit Provider Surgery | DX: K80.20 Calculus of gallbladder without cholecystitis without obstruction (principal) | CPT/HCPCS: 99202 ==

== ENCOUNTER 2024-12-18 07:53 | Outpatient (REF) | payer MEDICARE, SELFPAY ==
[2024-12-18 08:44] LABS: Estimated Average Glucose 123 mg/dL; Hemoglobin A1C 145.7725 umol/L; Hemoglobin A1c % 5.9 % (<6.0); Total Hemoglobin (HGBA1C) 3565.5098 umol/L
[2024-12-18 09:04] LABS: Alanine Aminotransferase 16 U/L (0-31); Albumin Level 3.9 g/dL (3.5-5.0); Alkaline Phosphatase 96 U/L (39-117); Anion Gap 11 (12-20); Aspartate Amino Transferase 24 U/L (5-31); Bilirubin Total 0.3 mg/dL (0.0-1.0); Blood Urea Nitrogen 20 mg/dL (9-16); C Reactive Protein 0.33 mg/dL (< or = 0.50); Calcium 9.4 mg/dL (8.4-10.2); Carbon Dioxide 29 mmol/L (22-29); Chloride 106 mmol/L (96-108); Estimated Glomerular Filt Rate > 60; Glucose Random 109 mg/dL (60-115); Potassium 3.9 mmol/L (3.3-5.1); Sodium 142 mmol/L (135-145); Total Protein 7.1 g/dL (6.5-8.0)
== END 2024-12-18 07:54 | disposition home or self-care (01) ==
LOC: HO.LAB 07:53
PROVIDERS: PCP Internal Medicine; Visit Provider Internal Medicine
DX: R10.9 Unspecified abdominal pain (principal); E11.9 Type 2 diabetes mellitus without complications; K21.9 Gastro-esophageal reflux disease without esophagitis; N18.9 Chronic kidney disease, unspecified
CPT/HCPCS: 36415; 80053; 83036; 86140

== ENCOUNTER 2025-01-05 02:02 | Emergency (ER) | payer MEDICARE, SELFPAY ==
--- NOTE | ~2025-01-05 | XR_ITS ---
CLINICAL HISTORY: right knee pain 2 view right knee Comparison: None Findings: Osteopenia. No acute fracture. Total knee arthroplasty. Hardware intact, alignment maintained. No joint effusion. No radiopaque foreign body. IMPRESSION: TKA without acute fracture. This document has been electronically signed by: Everton Land MD on 01/05/2025 03:14:12
[2025-01-05 02:06] VITALS: BP 171/87; PULSE 92; RESP 20; O2SAT 96; BMI 45.6
== END 2025-01-05 06:10 | disposition left against medical advice (07) ==
LOC: HO.ED 06:09
PROVIDERS: Emergency Provider Emergency Medicine; PCP Internal Medicine
DX: M25.561 Pain in right knee (principal)
CPT/HCPCS: 73560; 99212; 99281

== ENCOUNTER → 2025-01-05 02:30 | Outpatient (BNV) | payer MEDICARE, SELFPAY | PROVIDERS: PCP Internal Medicine; Visit Provider Radiology Diagnostic Radiology | DX: M25.561 Pain in right knee (principal); Z96.651 Presence of right artificial knee joint | CPT/HCPCS: 73560 ==

== ENCOUNTER 2025-01-05 10:51 | Outpatient (AMB) | payer MEDICARE, SELFPAY ==
--- NOTE | 2025-01-05 11:13 | MHC.OFFWIV ---
Intake Vital Signs 01/05/25 11:25 Weight 282 lb BP 130/90 H Blood Pressure Location Lt brachial Position Sitting Pulse 86 Pulse Source Pulse Oximeter Pulse Oximetry (%) 97 Oxygen Delivery Method Room Air Intake Visit Reasons: EP RT knee pain Intake Note: Patient here for right knee pain that has been present for a couple of weeks. Patient Tobacco Use Status: Never used Tobacco Allergies mold [MOLD] Allergy (Intermediate, Verified 01/05/25 11:19) COUGHING, SINUS CONGESTION Penicillins [PENICILLINS] Allergy (Intermediate, Verified 01/05/25 11:19) REVERSE REACTION MAKES PT FEEL WORSE Do you need a note to return to daycare/school/sports/work: No HPI HPI Comments History of Present Illness Details This is an 84-year-old female who had a right knee replacement 14 years ago, presenting for evaluation of right lateral knee pain that she has had for the past 2-4 weeks. Patient denies any injury or trauma preceding the onset of her discomfort. Patient went to the emergency department last night, had imaging performed but did not wait to be seen. Patient states that her pain is better when she straightens her leg and worse with movement. She has been using Tylenol and Voltaren topically which improves her discomfort but does not relieve the pain. [facility] Medical History Right heart failure Chronic respiratory failure with hypoxia and hypercapnia Obstructive sleep apnea CAD (coronary artery disease) PVC (premature ventricular contraction) Morbid obesity Dyslipidemia Type 2 diabetes mellitus Lymphedema Hypertension COPD (chronic obstructive pulmonary disease) Arthritis Surgical History History of hysterectomy History of knee replacement Family History Mother Coronary artery disease Social History Household Members: Significant Other Housing: Apartment Do you presently have visiting nurse or other home services: No Alcohol intake: never Patient Tobacco Use Status: Never used Tobacco e-Cigarette/Vaping Use: Never Used Second Hand Smoke Exposure: No Advance Directives Date on File: 05/11/22 service: No Current occupational status: retired Review of Systems Const All systems reviewed & are unremarkable except as noted in HPI and below Eyes Reports no additional complaints ENT Reports no additional complaints Card Reports no additional complaints Resp Reports no additional complaints GI Reports no additional complaints Reports no additional complaints Musc Reports no additional complaints and Reports arthralgias (right lateral knee) Skin/Breast Reports system reviewed and no additional complaints, except as documented Neuro Reports no additional complaints Endo Reports no additional complaints Matthias/Lymph Reports no additional complaints Aller/Immun Reports no additional complaints Physical Exam Vital Signs: Last Vital Signs Pulse 86 01/05/25 11:25 BP 130/90 H 01/05/25 11:25 Pulse Ox 97 01/05/25 11:25 Oxygen Delivery Method Room Air 01/05/25 11:25 Const General: cooperative, comfortable, alert, awake and Physically active Nutritional Appearance: obese Orientation/consciousness: patient oriented x3 Limitations: no limitations Skin General skin exam: no rashes or lesions noted Neuro General: patient oriented x3 Extrem Other: Patient is able to fully extend the right knee, there is pain to palpation of the right lateral knee and right quadriceps tendon. No warmth to touch no erythema. No edema underlying the right patella. Results Reviewed Results Reviewed: Right knee x.ray reviewed -- ordered in the ED. Normal imaging. Assessment & Plan Assessment & Plan (1) Right knee pain: Comment: Normal x.ray of R. knee performed in the ED earlier today. Code(s): M25.561 - Pain in right knee Qualifiers: Chronicity: unspecified Qualified Code(s): M25.561 - Pain in right knee Plan: Patient is given a knee brace for immobilization stabilization. She will use Voltaren topically and follow up with Orthopedics as an outpatient. Medications: New diclofenac sodium 1% (Voltaren Arthritis Pain) apply to single knee, ankle, foot; for foot includes sole/toes/top of foot 4 grams topical QID 100 grams 2RF Coding Level of Care Code Est Pt Level 3 (70133) Diagnoses Right knee pain, unspecified chronicity M25.561 Chronicity: unspecified Time Spent (min) 25
[2025-01-05 11:25] VITALS: BP 130/90; PULSE 86; O2SAT 97
== END 2025-01-05 12:21 | disposition home or self-care (01) ==
PROVIDERS: PCP Internal Medicine; Visit Provider Physician Assistant
DX: M25.561 Pain in right knee (principal)

== ENCOUNTER 2025-01-14 13:39 | Outpatient (AMB) | payer MEDICARE, SELFPAY ==
--- NOTE | 2025-01-14 13:46 | AM.OFFWIN_ITS ---
Intake Vital Signs 01/14/25 13:52 Weight 282 lb BP 140/90 H Blood Pressure Location Rt brachial Position Sitting Pulse 84 Pulse Source Pulse Oximeter Pulse Oximetry (%) 96 Oxygen Delivery Method Room Air Intake Visit Reasons: EP-rt knee pain, previous medication did not help Intake Note: Patient here for right knee pain that radiates to the hip and lower back pain. Patient Tobacco Use Status: Never used Tobacco Allergies mold [MOLD] Allergy (Intermediate, Verified 01/05/25 11:19) COUGHING, SINUS CONGESTION Penicillins [PENICILLINS] Allergy (Intermediate, Verified 01/05/25 11:19) REVERSE REACTION MAKES PT FEEL WORSE HPI HPI Comments History of Present Illness Details 84 y/o female patient who presents to [facility] walk in clinic with c/o right lateral knee pain that she has had for the past 4 weeks. Patient denies any injury or trauma preceding the onset of her discomfort. She was seen here recently 01/05/25 for similar issue and Right knee Imaging Negative for Fracture. She had Right TKA 14 years ago. She is morbidly obese with lymphadema of both lower extremities. She has an appointment with Orthopedics 03/02 and currently on the waiting List for any cancellation. She has been using Acetaminophen with some mild relief. [facility] Medical History Right heart failure Chronic respiratory failure with hypoxia and hypercapnia Obstructive sleep apnea CAD (coronary artery disease) PVC (premature ventricular contraction) Morbid obesity Dyslipidemia Type 2 diabetes mellitus Lymphedema Hypertension COPD (chronic obstructive pulmonary disease) Arthritis Surgical History History of hysterectomy History of knee replacement Family History Mother Coronary artery disease Social History Household Members: Significant Other Housing: Apartment Do you presently have visiting nurse or other home services: No Alcohol intake: never Patient Tobacco Use Status: Never used Tobacco e-Cigarette/Vaping Use: Never Used Second Hand Smoke Exposure: No Advance Directives Date on File: 05/11/22 service: No Current occupational status: retired Review of Systems Const All systems reviewed & are unremarkable except as noted in HPI and below Physical Exam Vital Signs: Last Vital Signs Pulse 84 01/14/25 13:52 BP 140/90 H 01/14/25 13:52 Pulse Ox 96 01/14/25 13:52 Oxygen Delivery Method Room Air 01/14/25 13:52 Const General: cooperative and no acute distress Nutritional Appearance: obese morbidly obese Orientation/consciousness: patient oriented x3 Neuro General: patient oriented x3 Extrem Right lower extremity: knee Details: tenderness Location: of the medial joint line and of the lateral joint line and lower leg (Lymphedema both Legs.) Details: tenderness Location: of the proximal tibia and of the proximal fibula; no erythema Assessment & Plan Assessment & Plan (1) Right knee pain: Code(s): M25.561 - Pain in right knee Qualifiers: Chronicity: unspecified Qualified Code(s): M25.561 - Pain in right knee Plan: Advised to call Orthopedics Daily for any Cancellation. NSAIDs and Acetaminophen for pain relief. Coding Level of Care Code Est Pt Level 4 (89837) Diagnoses Right knee pain, unspecified chronicity M25.561 Chronicity: unspecified Time Spent (min) 20
[2025-01-14 13:52] VITALS: BP 140/90; PULSE 84; O2SAT 96
== END 2025-01-14 14:27 | disposition home or self-care (01) ==
PROVIDERS: PCP Internal Medicine; Visit Provider Nurse Practitioner Family
DX: M25.561 Pain in right knee (principal)

== ENCOUNTER → 2025-01-14 13:39 | Outpatient (BNVA) | payer MEDICARE, SELFPAY | PROVIDERS: PCP Internal Medicine; Visit Provider Nurse Practitioner Family | DX: M25.561 Pain in right knee (principal) | CPT/HCPCS: 99212 ==

== ENCOUNTER 2025-02-01 13:54 | Outpatient (AMB) | payer MEDICARE, SELFPAY ==
--- NOTE | 2025-02-01 14:01 | A.OFFVIS_ITS ---
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 She states that at times both of her legs will ?go numb?. Her symptoms have gotten worse since she fell down 13 stairs approximately 3 years ago. She did undergo right total knee replacement surgery by Dr. Knox in 2009. She reports mild discomfort in her right knee. She denies any locking or giving way. The patient states that her low back pain is now interfering with her activities of daily living and her ability to sleep well through the night. She states that she has tried Tylenol, anti-inflammatory medicines and gabapentin which gave her mild relief. Allergies mold [MOLD] Allergy (Intermediate, Verified 02/01/25 14:04) COUGHING, SINUS CONGESTION Penicillins [PENICILLINS] Allergy (Intermediate, Verified 02/01/25 14:04) REVERSE REACTION MAKES PT FEEL WORSE Medication List - Last Reconciled 02/01/25 by Srinath Burton MD aspirin 81 mg PO DAILY bumetanide 2 mg PO BID clotrimazole-betamethasone 1-0.05 % 1 appl topical BID PRN diclofenac sodium 1% (Voltaren Arthritis Pain) 4 grams topical QID diltiazem HCl ER (Tiadylt ER) 360 mg PO DAILY furosemide 80 mg PO DAILY gabapentin 300 mg PO BEDTIME gemfibrozil 600 mg PO DAILY glucosamine sulfate (Glucosamine) 500 mg PO DAILY ipratropium bromide 2 sprays intranasal BID ipratropium-albuterol 0.5 mg-3 mg(2.5 mg base)/3 mL 3 mL inhalation Q6H PRN meloxicam 15 mg PO DAILY metformin ER 500 mg PO DAILY metoprolol tartrate 25 mg PO DAILY omeprazole 20 mg PO DAILY@0630 ondansetron 4 mg PO Q8H 3 days pravastatin 40 mg PO DAILY PFSH Medical History Right heart failure Chronic respiratory failure with hypoxia and hypercapnia Obstructive sleep apnea CAD (coronary artery disease) PVC (premature ventricular contraction) Morbid obesity Dyslipidemia Type 2 diabetes mellitus Lymphedema Hypertension COPD (chronic obstructive pulmonary disease) Arthritis Surgical History History of hysterectomy History of knee replacement Family History Mother Coronary artery disease Social History Household Members: Significant Other Housing: Apartment Do you presently have visiting nurse or other home services: No Alcohol intake: never Patient Tobacco Use Status: Never used Tobacco e-Cigarette/Vaping Use: Never Used Second Hand Smoke Exposure: No Advance Directives Date on File: 05/11/22 service: No Current occupational status: retired Physical Exam Vital Signs: BMI result Body Mass Index 45.5 Back/Spine/Pelvis Other: Low back examination shows bilateral paraspinal muscle tenderness, pain with range of motion, positive straight leg raise tests bilaterally at 70 degrees, 4/5 strength with testing of her bilateral hip flexors and knee extensors Extrem Other: Right knee examination shows that the surgical incision is well healed, no erythema, minimal discomfort with range of motion, full active extension and flexion to 120 degrees, her patella tracks well Results Reviewed Results Reviewed: X-rays of the patient's right knee show a total knee arthroplasty in good position with no signs of loosening, no acute bony abnormalities Assessment & Plan Assessment & Plan (1) Low back pain radiating to both legs: Code(s): M54.50 - Low back pain, unspecified; M79.604 - Pain in right leg; M79.605 - Pain in left leg Category: Medical (2) Numbness of both lower extremities: Code(s): R20.0 - Anesthesia of skin Plan Ms. Edwards presents with progressively worsening low back pain as well as bilateral leg weakness possibly due to lumbar stenosis or a disc herniation. Thus, I will send the patient for an MRI of her lumbar spine for further evaluation. I will contact her by phone once the MRI results are available. She will call me prior to that time should her symptoms worsen in any way. Feel free to call me at any time should questions regarding her orthopedic management arise. I spent 22 minutes in reviewing the patient's records and imaging studies, seeing the patient and documenting in the medical record. Orders: Orders MR lumbar spine wo con 02/01/25 M54.50 - Low back pain, unspecified, M79.604 - Pain in right leg, M79.605 - Pain in left leg Medications: New gabapentin 300 mg PO BID 60 caps 3RF Coding Level of Care Code New Pt Level 3 (33991) Complex EM visit Add On G2211 Diagnoses Low back pain radiating to both legs M54.50; M79.604; M79.605 Numbness of both lower extremities R20.0
[2025-02-01 14:03] VITALS: BMI 45.5
== END 2025-02-01 14:25 | disposition home or self-care (01) ==
LOC: HO.HOS 13:54
PROVIDERS: PCP Internal Medicine; Visit Provider Orthopaedic Surgery
DX: M54.50 Low back pain, unspecified (principal); M79.604 Pain in right leg; M79.605 Pain in left leg; R20.0 Anesthesia of skin
CPT/HCPCS: 99203; G2211

== ENCOUNTER → 2025-02-01 13:54 | Outpatient (BNVA) | payer MEDICARE, SELFPAY | PROVIDERS: PCP Internal Medicine; Visit Provider Orthopaedic Surgery | DX: M25.561 Pain in right knee (principal); M79.604 Pain in right leg; M79.605 Pain in left leg; M54.50 Low back pain, unspecified; R20.0 Anesthesia of skin | CPT/HCPCS: 99202 ==

== ENCOUNTER 2025-02-05 09:47 | Outpatient (AMB) | payer MEDICARE, SELFPAY ==
--- NOTE | 2025-02-05 09:51 | MHC.OFFVIS ---
Vital Signs 02/05/25 09:55 Height 5 ft 6 in Weight 283 lb BMI 45.7 BP 138/80 Blood Pressure Location Lt brachial Position Sitting Pulse 103 H Pulse Oximetry (%) 93 Oxygen Delivery Method Room Air Intake Visit Reasons: solitary pulm nodule Principal Technical Specialist Required: No Commission Associate: Commission Associate offered & declined Accompanied by: Self / Same As Patient Allergies mold [MOLD] Allergy (Intermediate, Verified 02/05/25 09:57) COUGHING, SINUS CONGESTION Penicillins [PENICILLINS] Allergy (Intermediate, Verified 02/05/25 09:57) REVERSE REACTION MAKES PT FEEL WORSE Medication List - Last Reconciled 02/05/25 by Julita Stearns LPN aspirin 81 mg PO DAILY bumetanide 2 mg PO BID clotrimazole-betamethasone 1-0.05 % 1 appl topical BID PRN diclofenac sodium 1% (Voltaren Arthritis Pain) 4 grams topical QID diltiazem HCl ER (Tiadylt ER) 360 mg PO DAILY furosemide 80 mg PO DAILY gabapentin 300 mg PO BID gemfibrozil 600 mg PO DAILY glucosamine sulfate (Glucosamine) 500 mg PO DAILY ipratropium bromide 2 sprays intranasal BID ipratropium-albuterol 0.5 mg-3 mg(2.5 mg base)/3 mL 3 mL inhalation Q6H PRN meloxicam 15 mg PO DAILY metformin ER 500 mg PO DAILY metoprolol tartrate 25 mg PO DAILY omeprazole 20 mg PO DAILY@0630 ondansetron 4 mg PO Q8H 3 days pravastatin 40 mg PO DAILY HPI HPI solitary pulm nodule: Details: Izabel is an 84 year old female, never smoker, with underlying history of moderate COPD using supplemental oxygen PRN, MAGAN unable to CPAP therapy, right sided heart failure followed by cardiology on bumex 2 mg BID, chronic lymphedema BLE and morbid obesity. At baseline she reports moderate control of symptoms on DuoNeb, Fomorterol and Acapella valve. Today she presents for a routine visit. She reports persistent inspiratory crackling with productive cough with yellow sputum, baseline dyspnea. She denies chest congestion, fevers, chills or sick contacts. She denies any visits to urgent care or hospitalizations since the last visit related to respiratory distress. Since the last visit, she was evaluated by [facility] cardiology who stated patient was taking Bumex along with metolazone every other day, which she confirmed today however not on medication list. [facility] Medical History Right heart failure Chronic respiratory failure with hypoxia and hypercapnia Obstructive sleep apnea CAD (coronary artery disease) PVC (premature ventricular contraction) Morbid obesity Dyslipidemia Type 2 diabetes mellitus Lymphedema Hypertension COPD (chronic obstructive pulmonary disease) Arthritis Surgical History History of hysterectomy History of knee replacement Family History Mother Coronary artery disease Social History Household Members: Significant Other Housing: Apartment Do you presently have visiting nurse or other home services: No Alcohol intake: never Patient Tobacco Use Status: Never used Tobacco e-Cigarette/Vaping Use: Never Used Second Hand Smoke Exposure: No Advance Directives Date on File: 05/11/22 service: No Current occupational status: retired Review of Systems Const Denies chills, Denies excessive sweating, Denies fever(s), Denies headache(s) and Denies night sweats Eyes Denies dry eyes ENT Reports Normal hearing present, Denies headache(s) and Reports nasal congestion Card Denies chest pain, Denies chest pain at rest, Denies chest pain with activity, Reports dyspnea, Reports dyspnea on exertion and Reports orthopnea Resp Denies change in phlegm color, Reports chest congestion, Reports cough, Denies hemoptysis, Reports excessive phlegm production, Denies pain on inspiration, Denies pain with cough, Reports dyspnea, Reports dyspnea on exertion and Denies stridor Musc Denies myalgias Neuro Reports Normal hearing present and Denies headache(s) Endo Denies excessive sweating Aller/Immun Denies seasonal rhinorrhea Physical Exam Vital Signs: Last Vital Signs Pulse 103 H 02/05/25 09:55 BP 138/80 02/05/25 09:55 Pulse Ox 93 02/05/25 09:55 Oxygen Delivery Method Room Air 02/05/25 09:55 BMI result Body Mass Index 45.7 Const General: cooperative and alert Nutritional Appearance: obese Orientation/consciousness: patient oriented x3 HEENT Head: Yes normal to inspection, Yes normocephalic and Yes atraumatic Ears: hearing grossly normal bilaterally and external ears normal Eyes Periorbital: periorbital findings abnormal bilateral Eyelids: Yes eyelid abnormality Sclerae: sclerae normal EOM: EOMs intact bilaterally Chest Chest palpation & inspection: normal inspection of the chest Resp Effort & Inspection: able to speak in complete sentences, Actively coughing Quality: wet, no stridor, not tachypneic, no tripod positioning and no use of accessory muscles Auscultation: no crackles, no rales, no rhonchi, no wheezes and diminished lung sounds Cardio Rate: regular rate Skin Other: warm, dry Neuro General: patient oriented x3 Cranial nerves: Yes Normal hearing present Cognition (Neuro): normal cognition Extrem Other: chronic lymphedema General: Yes pedal edema Psych Appearance: grossly normal and well kempt Speech and movement: Normal speech and movement present and Clear speech present Affect: normal affect Attitude: cooperative Thought process: Normal thought process present Thought content: Normal thought content present Insight: Good insight present (Psych) Judgement: Good judgement present (Psych) Assessment & Plan Assessment & Plan (1) COPD (chronic obstructive pulmonary disease): Code(s): J44.9 - Chronic obstructive pulmonary disease, unspecified Category: Medical Qualifiers: COPD type: COPD with acute exacerbation Qualified Code(s): J44.1 - Chronic obstructive pulmonary disease with (acute) exacerbation (2) Obstructive sleep apnea: Comment: Noncompliant with CPAP Code(s): G47.33 - Obstructive sleep apnea (adult) (pediatric) Category: Medical (3) Requires supplemental oxygen: Code(s): Z99.81 - Dependence on supplemental oxygen Category: Medical (4) Nocturnal hypoxemia: Code(s): G47.34 - Idiopathic sleep related nonobstructive alveolar hypoventilation Category: Medical (5) Lymphedema: Code(s): I89.0 - Lymphedema, not elsewhere classified Category: Medical (6) Right heart failure: Code(s): I50.810 - Right heart failure, unspecified Category: Medical Plan Will treat bronchitic symptoms with Bactrim. Discussed predisone however patient having difficulties with blood glucose recently due to tragic family event. Will hold off at this time as no wheezing. She is aware of symptoms worsen to seek emergent care. Also encouraged continued use of acapella valve. All questions were answered and patient is in agreement of plan. Will follow up in 2-3 months or sooner if needed. Medications: New sulfamethoxazole-trimethoprim 800-160 mg (Bactrim DS) 1 tab PO BID 20 tabs 0RF Coding Level of Care Code Est Pt Level 4 (09652) Diagnoses COPD (chronic obstructive pulmonary disease) J44.1 COPD type: COPD with acute exacerbation Obstructive sleep apnea G47.33 Requires supplemental oxygen Z99.81 Nocturnal hypoxemia G47.34 Lymphedema I89.0 Right heart failure I50.810
[2025-02-05 09:55] VITALS: BP 138/80; PULSE 103; O2SAT 93; BMI 45.7
== END 2025-02-05 10:48 | disposition home or self-care (01) ==
LOC: HO.HPSW 09:48
PROVIDERS: PCP Internal Medicine; Visit Provider Nurse Practitioner Family
DX: J44.1 Chronic obstructive pulmonary disease with (acute) exacerbation (principal); G47.33 Obstructive sleep apnea (adult) (pediatric); Z99.81 Dependence on supplemental oxygen; G47.34 Idiopathic sleep related nonobstructive alveolar hypoventilation; I89.0 Lymphedema, not elsewhere classified; I50.810 Right heart failure, unspecified
CPT/HCPCS: 99214

== ENCOUNTER → 2025-02-05 09:47 | Outpatient (BNVA) | payer MEDICARE, SELFPAY | PROVIDERS: PCP Internal Medicine; Visit Provider Nurse Practitioner Family | DX: J44.1 Chronic obstructive pulmonary disease with (acute) exacerbation (principal); G47.33 Obstructive sleep apnea (adult) (pediatric); G47.34 Idiopathic sleep related nonobstructive alveolar hypoventilation; I89.0 Lymphedema, not elsewhere classified; I50.810 Right heart failure, unspecified; Z99.81 Dependence on supplemental oxygen | CPT/HCPCS: 99212 ==

== ENCOUNTER → 2025-02-11 07:39 | Outpatient (BNV) | payer MEDICARE, SELFPAY | PROVIDERS: PCP Internal Medicine; Visit Provider Radiology Diagnostic Radiology | DX: M47.895 Other spondylosis, thoracolumbar region (principal); M48.062 Spinal stenosis, lumbar region with neurogenic claudication | CPT/HCPCS: 72148 ==

== ENCOUNTER 2025-02-11 07:47 | Outpatient (REF) | payer MEDICARE, SELFPAY ==
--- NOTE | ~2025-02-11 | MR_ITS ---
EXAMINATION: MR LUMBAR SPINE WITHOUT CONTRAST CLINICAL INFORMATION: Low back pain, unspecified. COMPARISON: None available. TECHNIQUE: MRI of the lumbar spine was obtained using routine sequences without contrast. FINDINGS: Last rib-bearing vertebra labeled T12. No bone marrow STIR signal abnormality. Marginal osteophyte formation and disc desiccation from T11-12 to L1 to from L4-5 to L5-S1. Grade 1 retrolisthesis, T12-L1, L1 to levels. Grade 1 anterolisthesis L3-4. Conus medullaris ends at intervertebral disc T12-L1 with normal signal. T12-L1: Broad-based disc bulging. Facet joint hypertrophy. No compression upon neural elements. L1-2: Broad-based disc bulging. Facet joint and ligamentum flavum hypertrophy. Reduced AP diameter of the thecal sac and the neural foramina. L2-3: Broad-based disc bulging. Facet joint and ligamentum flavum hypertrophy. Central spinal canal and bilateral neuroforamina stenosis, right greater than the left side likely encroaching the neural elements. L3-4: Broad-based disc bulging. Facet joint and ligamentum flavum hypertrophy. Reduced AP diameter of the thecal sac and the neural foramina. L4-5: [Disc bulging. Facet joint and ligamentum flavum hypertrophy. Reduced AP diameter of the thecal sac and neuroforamina narrowing encroaching the neural elements. L5-S1: Broad-based disc bulging. Facet joint hypertrophy. Bilateral neuroforamina stenosis encroaching the exiting nerve roots. No prevertebral compartment hematoma, mass or fluid collection. Multifocal different sizes round hyperintense T2 cystic lesions in the left kidney. Fatty atrophy of the lower lumbar muscles from L4 to sacrum. MR/MR lumbar spine wo con IMPRESSION: Multilevel thoracolumbar spondylosis resulting in grade 1 anterolisthesis L3-4 and grade 1 retrolisthesis L1 to and to a lesser extent T12-L1 causing central spinal canal and bilateral neuroforamina stenosis at L2-3, L4-5 and to a lesser extent L5-S1 encroaching the exiting nerve roots. Electronically signed by: Adonis Dykes MD 02/11/2025 10:10 AM EDT
== END 2025-02-11 07:48 | disposition home or self-care (01) ==
LOC: HO.MRI 07:47
PROVIDERS: PCP Internal Medicine; Visit Provider Orthopaedic Surgery
DX: M54.50 Low back pain, unspecified (principal); M79.604 Pain in right leg; M79.605 Pain in left leg
CPT/HCPCS: 72148

== ENCOUNTER 2025-03-01 09:31 | Outpatient (AMB) | payer MEDICARE, SELFPAY ==
--- NOTE | 2025-03-01 09:35 | HO.SPINEOV ---
Vital Signs 03/01/25 09:43 Height 5 ft 5 in Weight 283 lb BMI 47.1 Intake Visit Reasons: LBP & bilateral leg pain Intake Note: Mrs. Edwards is here today c/o Low back pain that radiates down both legs. Polysomnography Technician Required: No Allergies mold [MOLD] Allergy (Intermediate, Verified 02/05/25 09:57) COUGHING, SINUS CONGESTION Penicillins [PENICILLINS] Allergy (Intermediate, Verified 03/01/25 09:43) REVERSE REACTION MAKES PT FEEL WORSE Physical Exam Vital Signs: BMI result Body Mass Index 47.1 Assessment & Plan Assessment & Plan (1) Lumbago: Code(s): M54.50 - Low back pain, unspecified Category: Medical Plan Dear Dr. Burton, Thank you for referring Izabel to our office today. She is a pleasant 84-year-old female who comes in today with a chief complaint of chronic low back pain for the past 30-40 years. She does reports a flare-up of pain about 2 years ago after falling down a set of stairs. This is a fairly traumatic fall leading to a large laceration across her forehead that was repaired at [facility]. She states that after about 5-10 minutes on her feet she starts to experience severe low back pain causing her to need to rest. She denies any shooting radicular pains down her bilateral lower extremities. She denies any numbness or tingling in her lower extremities. She is unable to complete meaningful activities of daily living such as grocery shopping and retail shopping due to her significant pain with ambulation. She has attempted physical therapy in the past but the last time she went was a couple of years ago. She has not attempted cortisone injections because she had a negative experience with them in the past, and states she is unwilling to attempt to subsequent cortisone injections. She has attempted [id number] medications including extra-strength Tylenol and NSAIDs without significant relief for pain. She is currently taking prescription gabapentin effort to help mitigate her pain. PMH: Right-sided heart failure with pulmonary parenchymal disease and lymphedema, currently being followed by Cardiology. Hypertension, COPD, osteoarthritis, type 2 diabetes last A1c 5.9. Obesity. Bilateral total knee replacements in 2010 and 2016. Bilateral cataract surgery. Hysterectomy done 50 years ago. Social hx: The patient does not smoke, reports no substance use. Medications: See ClrTouch list. She does not take her aspirin. Allergies: Penicillin, mold. Physical exam: The patient has 5/5 strength in her upper and lower extremities. She ambulates very slowly and rises from a seated position via bracing herself on the chair. She was able to get up onto the examination table, but does so very slowly with difficulty. Her reflexes are hypoactive bilaterally the patella, but 2+ intact elsewhere. She has no significant sensational deficits on examination. (-) bilateral straight leg raise, (-) Celeste's, (-) clonus. Significant lymphedema causing her upper and lower extremities to appear very swollen, estimated at about double their natural size.. Imaging review: MRI of the lumbar spine completed here at [facility] shows a left-sided paracentral disc herniation at L4-5 causing causing some impingement of the exiting left L4 foramen. The MRI report states grade 1 anterolisthesis L3-4 and grade 1 retrolisthesis L1-2 however on the actual imaging it appears these are very mild, if present at all. Impression: Izabel is a pleasant 84-year-old female who comes in today for evaluation of longstanding low back pain which became exacerbated about 2 years ago after a traumatic fall down a staircase. She reports that her pain is well localized to the lower lumbar spine, denies any shooting radicular pains down her lower extremities. She has a complex cardiac/pulmonary history, and is currently suffering from significant lymphedema. The only real surgical pathology that I am able to identify in her lumbar spine as the disc herniation at L4-5, however I do not believe that this could be solely responsible for the type of back pain that she is describing. Typically, and cases such as this I would suggest cortisone injections specifically of the left L4 foramen, however the patient is largely unwilling to engage in cortisone injections due to a negative experience she had with him in the past. After discussing this further, she expressed interest in speaking with our colleagues in pain management to discuss the possibility of either nerve ablation therapies or spinal cord stimulator. I will send her for a course of physical therapy to see if this is partially related to a musculoskeletal issue, and will also refer her to pain management. Thank you for allowing us to care for your patient. The total time spent with this visit with this patient was 45 minutes reviewing history, physical exam, MRI imaging review, and implementation of treatment plan or further diagnostic testing Gerald Malin MD,PhD [facility] Orders: Orders PT Evaluation and Treatment Today M54.50 - Low back pain, unspecified Referrals Pain Management Referral M54.50 - Low back pain, unspecified Coding Level of Care Code New Pt Level 4 (22401) Diagnoses Lumbago M54.50
[2025-03-01 09:43] VITALS: BMI 47.1
== END 2025-03-01 10:58 | disposition home or self-care (01) ==
LOC: HO.HNS 09:32
PROVIDERS: PCP Internal Medicine; Referring Provider Orthopaedic Surgery; Visit Provider Physician Assistant
DX: M54.50 Low back pain, unspecified (principal)
CPT/HCPCS: 99204

== ENCOUNTER → 2025-03-01 09:31 | Outpatient (BNVA) | payer MEDICARE, SELFPAY | PROVIDERS: PCP Internal Medicine; Referring Provider Orthopaedic Surgery; Visit Provider Physician Assistant | DX: M54.50 Low back pain, unspecified (principal) | CPT/HCPCS: 99202 ==

== ENCOUNTER 2025-03-04 14:53 | Outpatient (AMB) | payer MEDICARE, SELFPAY ==
[2025-03-04 14:54] VITALS: BP 142/90; PULSE 88; RESP 16; TEMP 36.7; O2SAT 93; BMI 47.4
--- NOTE | 2025-03-04 14:54 | A.OFFPC_ITS ---
Vital Signs 03/04/25 14:54 Height 5 ft 5 in Weight 285 lb BMI 47.4 BP 142/90 H Respiration 16 Pulse 88 Pulse Source Pulse Oximeter Temp 98.0 F Temp Source Temporal Artery Scan Pulse Oximetry (%) 93 Oxygen Delivery Method Room Air Intake Visit Reasons: Routine Partridge Farmer Required: No Accompanied by: Self / Same As Patient Allergies mold [MOLD] Allergy (Intermediate, Verified 03/04/25 14:54) COUGHING, SINUS CONGESTION Penicillins [PENICILLINS] Allergy (Intermediate, Verified 03/04/25 14:54) REVERSE REACTION MAKES PT FEEL WORSE Tobacco use date assessed: 03/04/25 Fall risk assessment: No Falls in past year Last assessed Fall Risk: 03/04/25 Dental Screening Dental Screen Date: 03/04/25 Did you have a dental visit in the last 12 months?: No Did you have a dental problem in the last 6 months where you did not have access to dental care?: No HPI HPI Comments History of Present Illness Details 84 y/o female with a past medical histor y of diabetes, CAD, CHF, htn, hld, bilateral knee replacement, lumbar DDD, presenting for follow up DM: On metformin 500mg daily. A1C 5.9%. Eye exam UTD. Fasting blood sugar log mostly 100-150. CV: On ASA, bumex 2mg BID, diltiazem, furosemide, gemfibrozil, metoprolol, pravastatin. Follows with cardiology at [facility] [place]. MSK: Low back pain, bilateral knee pain s/p TKR b/l. Upcoming appt pain management. On gabapentin 300mg three times daily. ROS see HPI PHYSICAL EXAM: GENERAL: Alert and oriented x 3. NAD EYES: EOMI. Anicteric. HENT: Moist mucous membranes. No scleral icterus. No cervical lymphadenopathy. LUNGS: Clear to auscultation bilaterally. CARDIOVASCULAR: Regular rate and rhythm. No murmur. No JVD. ABDOMEN: Soft, non-tender +bs EXTREMITIES: No edema. Non-tender. SKIN: No rashes or lesions. Warm. NEUROLOGIC: No focal neurological deficits. CN II-XII grossly intact PSYCHIATRIC: Cooperative. Appropriate mood and affect [facility] Medical History Right heart failure Chronic respiratory failure with hypoxia and hypercapnia Obstructive sleep apnea CAD (coronary artery disease) PVC (premature ventricular contraction) Morbid obesity Dyslipidemia Type 2 diabetes mellitus Lymphedema Hypertension COPD (chronic obstructive pulmonary disease) Arthritis Surgical History History of hysterectomy History of knee replacement Family History Mother Coronary artery disease Social History Household Members: Significant Other Housing: Apartment Do you presently have visiting nurse or other home services: No Alcohol intake: never Patient Tobacco Use Status: Never used Tobacco e-Cigarette/Vaping Use: Never Used Second Hand Smoke Exposure: No Advance Directives Date on File: 05/11/22 service: No Current occupational status: retired Cognitive needs: Yes (cane) Hearing needs: Yes (right ear hearing aid) Vision needs: No Questionnaire PHQ-9 Over the last 2 weeks, how often have you been bothered by any of the following problems? 1. Little interest or pleasure in doing things: not at all 2. Feeling down, depressed, or hopeless: not at all 3. Trouble falling or staying asleep, or sleeping too much: not at all 4. Feeling tired or having little energy: not at all 5. Poor appetite or overeating: not at all 6. Feeling bad about yourself - or that you are a failure or have let yourself or your family down: not at all 7. Trouble concentrating on things, such as reading the newspaper or watching television: not at all 8. Moving or speaking so slowly that other people could have noticed. Or the opposite - being so fidgety or restless that you have been moving around a lot more than usual: not at all 9. Thoughts that you would be better off or of hurting yourself in some way: not at all Total score: 0 Depression Screening Interpretation: Negative Depression Screening Done: Yes 73147 - PHQ-9 Billing: Yes Source: Developed by Drs. Davon Barkley, Romy Ko, Denton Barrios and colleagues, with an educational audelia from [employer]. Thrive Questionnaire Date Thrive assessed: 03/04/25 I am a: Patient What is your living situation today?: I have a steady place to live Within the past 12 months, did the food you bought not last and you didn't have the money to get more?: Never true Within the past 12 months, did you worry whether your food would run out before you got money to buy more?: Never true Do you have trouble paying for medicines?: No Do you have trouble getting transportation to medical appointments?: No Do you have trouble paying your heating and electricity bill?: No Do you have trouble taking care of your child, family member or friend?: No Do you have trouble with day-to-day activities such as bathing, preparing meals, shopping, managing finances, etc.?: No Are you currently unemployed and looking for a job?: No Are you interested in more education?: No Please select the resources that you would like help with: None THRIVE Score: 0 AUDIT C Alcohol Use Questionnaire (AUDIT-C) 1. How often do you have a drink containing alcohol?: Never 3. How often do you have six or more drinks on one occasion?: Never Total Score: 0 KEY-7 AMB Questionnaire KEY-7 Date KEY - 7 assessed: 03/04/25 Feeling nervous, anxious, or on edge: 0 = Not at all Not being able to stop or control worryin = Not at all Worrying too much about different things: 0 = Not at all Trouble relaxin = Not at all Being so restless that it is hard to sit still: 0 = Not at all Becoming easily annoyed or irritable: 0 = Not at all Feeling afraid as if something awful might happen: 0 = Not at all Total KEY-7 score (0-4 normal; 5-9 mild; 10-14 moderate; 15-21 severe): 0 Source: Developed by Drs. Davon Barkley, Romy Ko, Denton Barrios and colleagues, with an educational audelia from [employer]. Physical exam (Primary Care) Vital Signs: Last Vital Signs Temp 98.0 F 03/04/25 14:54 Pulse 88 03/04/25 14:54 Resp 16 03/04/25 14:54 BP 142/90 H 03/04/25 14:54 Pulse Ox 93 03/04/25 14:54 Oxygen Delivery Method Room Air 03/04/25 14:54 BMI result Body Mass Index 47.4 Tobacco/Smoking Status: Tobacco use Status Tobacco use date assessed 03/04/25 03/04/25 14:56 Patient Tobacco Use Status Never used Tobacco 03/04/25 14:56 e-Cigarette/Vaping Use Never Used 03/04/25 14:56 PHQ-9: PHQ-9 Score PHQ-9: Total score 0 03/04/25 15:08 Depression Screening Interpretation: Negative Thrive Assessment: Date of Thrive Assessment Date Thrive assessed 03/04/25 03/04/25 14:56 Coding Level of Care Code New Pt Level 4 (73747) Complex EM visit Add On G2211 Diagnoses Type 2 diabetes mellitus with other circulatory complication, without long-term current use of insulin E11.59 Diabetes mellitus assistant terminal manager insulin use: without assistant terminal manager use Diabetes mellitus complication status: with circulatory complication Diabetes mellitus complication detail: with other circulatory complications Spinal stenosis of lumbar region, unspecified whether neurogenic claudication present M48.061 Neurogenic claudication status: unspecified COPD exacerbation J44.1 Additional Codes PHQ-9 - 03175 - PHQ-9 Billing: Yes ([id number]) Assessment & Plan Assessment & Plan (1) Type 2 diabetes mellitus: Code(s): E11.9 - Type 2 diabetes mellitus without complications Category: Medical Qualifiers: Diabetes mellitus assistant terminal manager insulin use: without mcfp use Diabetes mellitus complication status: with circulatory complication Diabetes mellitus complication detail: with other circulatory complications Qualified Code(s): E11.59 - Type 2 diabetes mellitus with other circulatory complications (2) Lumbar stenosis: Code(s): M48.061 - Spinal stenosis, lumbar region without neurogenic claudication Category: Medical Qualifiers: Neurogenic claudication status: unspecified Qualified Code(s): M48.061 - Spinal stenosis, lumbar region without neurogenic claudication (3) COPD exacerbation: Code(s): J44.1 - Chronic obstructive pulmonary disease with (acute) exacerbation Category: Medical Plan 84 year old to establish care Past medical, surgical, social reviewed CAD, CHF, lymphedema-c/w cardiology follow up DM is well controlled Orders: Orders Hemoglobin A1c 3 Months E11.9 - Type 2 diabetes mellitus without complications, I10 - Essential (primary) hypertension, I25.10 - Atherosclerotic heart disease of [place] coronary artery without angina pectoris, M48.061 - Spinal stenosis, lumbar region without neurogenic claudication Comprehensive Met. Panel 3 Months E11.9 - Type 2 diabetes mellitus without complications, I10 - Essential (primary) hypertension, I25.10 - Atherosclerotic heart disease of [place] coronary artery without angina pectoris, M48.061 - Spinal stenosis, lumbar region without neurogenic claudication Lipid Panel 3 Months E11.9 - Type 2 diabetes mellitus without complications, I10 - Essential (primary) hypertension, I25.10 - Atherosclerotic heart disease of [place] coronary artery without angina pectoris, M48.061 - Spinal stenosis, lumbar region without neurogenic claudication Medications: New lidocaine 5% leave on most painful area for up to 12 hrs 1 patch topical DAILY 30 ea 0RF
== END 2025-03-04 15:30 | disposition home or self-care (01) ==
LOC: HO.HMCHD 14:53
PROVIDERS: PCP Internal Medicine; Visit Provider Internal Medicine
DX: E11.59 Type 2 diabetes mellitus with other circulatory complications (principal); M48.061 Spinal stenosis, lumbar region without neurogenic claudication; J44.1 Chronic obstructive pulmonary disease with (acute) exacerbation

== ENCOUNTER → 2025-03-04 14:53 | Outpatient (BNVA) | payer MEDICARE, SELFPAY | PROVIDERS: PCP Internal Medicine; Visit Provider Internal Medicine | DX: E11.59 Type 2 diabetes mellitus with other circulatory complications (principal); M48.061 Spinal stenosis, lumbar region without neurogenic claudication; J44.1 Chronic obstructive pulmonary disease with (acute) exacerbation; I25.10 Atherosclerotic heart disease of native coronary artery without angina pectoris; I10 Essential (primary) hypertension; Z79.82 Long term (current) use of aspirin; Z79.84 Long term (current) use of oral hypoglycemic drugs; Z79.899 Other long term (current) drug therapy; Z96.653 Presence of artificial knee joint, bilateral | CPT/HCPCS: 96127; 99202 ==

== ENCOUNTER 2025-03-12 08:57 | Outpatient (AMB) | payer MEDICARE, SELFPAY ==
--- NOTE | 2025-03-12 08:58 | A.OFFVIS_ITS ---
Vital Signs 03/12/25 09:07 Height 5 ft 5 in Weight 290 lb BMI 48.3 BP 187/95 H Blood Pressure Location Rt brachial Position Sitting Pulse 108 H Pulse Source Pulse Oximeter Pulse Oximetry (%) 96 Oxygen Delivery Method Room Air Intake Visit Reasons: Low Back Pain Intake Note: Pain today 03/13 Public Records Researcher Required: No Accompanied by: Self / Same As Patient Allergies mold [MOLD] Allergy (Intermediate, Verified 03/12/25 09:08) COUGHING, SINUS CONGESTION Penicillins [PENICILLINS] Allergy (Intermediate, Verified 03/12/25 09:08) REVERSE REACTION MAKES PT FEEL WORSE HPI Comments Details: The patient is an 84-year-old female presenting with management of chronic lower back pain. Her pain began many years ago but worsened two years ago after falling down stairs, leading to hospitalization. She was diagnosed with lumbar spine degenerative arthritis and spinal stenosis, with surgical options considered more harmful than beneficial. Her back pain is described as deep and incapacitating, exacerbated by upright activities, and limits her ability to conduct daily tasks like cooking. Steroid injections historically caused severe swelling, indicating a need for alternate pain management strategies. She independently maintains movement through self-directed physical therapy, and girdle use supports her posture. Neuropathic symptoms in her legs, attributed to fall-related nerve damage, are managed effectively with gabapentin. Concurrently, she deals with lymphedema, managing with wraps and diuretics, which assist somewhat but do not eliminate fluid retention. Her comprehensive management strategy emphasizes maintaining functionality and minimizing pain through non-invasive measures, given her history of adverse reactions to steroids and the chronicity of her condition. Currently taking Tylenol, Gabapentin and using NSAIDs but pain persists. Topical lidocaine patches not helpful. - Location: Central lower back - Onset: Two years ago following a fall - Quality: Deep, aching pain - Radiation: Affects lower extremities with neuropathic characteristics - Exacerbating factors: Standing, walking, prolonged upright activities - Relieving factors: Gabapentin for nerve pain, maintaining good posture, physical support through girdle - Interference: Cooking, cleaning, and household activities such as vacuuming and dishwashing - Affect: Pain affects ability to perform daily tasks, impacting quality of life - Analgesia: Currently on gabapentin with effective management of neuropathic pain; pain persists at moderate levels with above medications - Adverse Effects: Previous corticosteroid injections resulted in significant swelling - Activities of Daily Living: Pain limits her ability to perform prolonged tasks such as cooking, vacuuming, cleaning; requires pacing and resting - Aberrant Drug Related Behaviors: None reported [facility] Medical History Right heart failure Chronic respiratory failure with hypoxia and hypercapnia Obstructive sleep apnea CAD (coronary artery disease) PVC (premature ventricular contraction) Morbid obesity Dyslipidemia Type 2 diabetes mellitus Lymphedema Hypertension COPD (chronic obstructive pulmonary disease) Arthritis Surgical History History of hysterectomy History of knee replacement Family History Mother Coronary artery disease Social History Household Members: Significant Other Housing: Apartment Do you presently have visiting nurse or other home services: No Alcohol intake: never Patient Tobacco Use Status: Never used Tobacco e-Cigarette/Vaping Use: Never Used Second Hand Smoke Exposure: No Advance Directives Date on File: 05/11/22 service: No Current occupational status: retired Cognitive needs: Yes (cane) Hearing needs: Yes (right ear hearing aid) Vision needs: No Review of Systems Const Details: - Musculoskeletal: Reports chronic lower back pain, limited mobility - Neurological: Reports neuropathy with electrical sensations in legs, improved with medication - Lymphatic: Reports significant lymphedema and fluid retention - General: Denies further surgical interventions deemed beneficial Physical Exam General: awake, alert, oriented. Answers questions appropriately. Fully engaged in examination. Skin: warm, dry, intact HEENT: Normocephalic. Hearing intact. Cardiac: External chest normal in appearance. Respiratory: No cough, audible wheezing or stridor. Abdomen: without gross distension. MS: Lymphedema BLE, left greater than right. Compression wraps in place. Able to stand on bilateral tiptoes and bilateral heels.? Able to transition from sit to stand unassisted. Ambulates with bilaterally normal heel strike and toe off Tenderness over midline lumbar vertebrae and lumbar paraspinal muscles Nontender over bilateral PSIS SLR negative bilaterally Facet loading positive bilaterally Neurological: Oriented to person, place, time and situation. Thought process intact. Ambulates with the use of a cane Psychiatric: Appropriate mood and affect. Good judgment and insight. Results Reviewed Results Reviewed: 02/11/25 MRI LS FINDINGS: Last rib-bearing vertebra labeled T12. No bone marrow STIR signal abnormality. Marginal osteophyte formation and disc desiccation from T11-12 to L1 to from L4-5 to L5-S1. Grade 1 retrolisthesis, T12-L1, L1 to levels. Grade 1 anterolisthesis L3-4. Conus medullaris ends at intervertebral disc T12-L1 with normal signal. T12-L1: Broad-based disc bulging. Facet joint hypertrophy. No compression upon neural elements. L1-2: Broad-based disc bulging. Facet joint and ligamentum flavum hypertrophy. Reduced AP diameter of the thecal sac and the neural foramina. L2-3: Broad-based disc bulging. Facet joint and ligamentum flavum hypertrophy. Central spinal canal and bilateral neuroforamina stenosis, right greater than the left side likely encroaching the neural elements. L3-4: Broad-based disc bulging. Facet joint and ligamentum flavum hypertrophy. Reduced AP diameter of the thecal sac and the neural foramina. L4-5: [Disc bulging. Facet joint and ligamentum flavum hypertrophy. Reduced AP diameter of the thecal sac and neuroforamina narrowing encroaching the neural elements. L5-S1: Broad-based disc bulging. Facet joint hypertrophy. Bilateral neuroforamina stenosis encroaching the exiting nerve roots. No prevertebral compartment hematoma, mass or fluid collection. Multifocal different sizes round hyperintense T2 cystic lesions in the left kidney. Fatty atrophy of the lower lumbar muscles from L4 to sacrum. IMPRESSION: Multilevel thoracolumbar spondylosis resulting in grade 1 anterolisthesis L3-4 and grade 1 retrolisthesis L1 to and to a lesser extent T12-L1 causing central spinal canal and bilateral neuroforamina stenosis at L2-3, L4-5 and to a lesser extent L5-S1 encroaching the exiting nerve roots. Assessment & Plan Assessment & Plan (1) Lymphedema: Code(s): I89.0 - Lymphedema, not elsewhere classified Category: Medical (2) Lumbar stenosis: Code(s): M48.061 - Spinal stenosis, lumbar region without neurogenic claudication Category: Medical Qualifiers: Neurogenic claudication status: unspecified Qualified Code(s): M48.061 - Spinal stenosis, lumbar region without neurogenic claudication (3) Lumbar spondylosis: Code(s): M47.816 - Spondylosis without myelopathy or radiculopathy, lumbar region Category: Medical (4) Chronic pain syndrome: Code(s): G89.4 - Chronic pain syndrome Category: Medical Plan To manage the patient's chronic lower back pain, diagnostic injections without steroids will be conducted to evaluate the effectiveness of regional anesthesia. This will guide potential consideration of radiofrequency ablation. Referral to a vascular specialist will address her lymphedema, considering therapeutic alternatives for effective fluid management. The current regimen of gabapentin will continue to manage neuropathic symptoms. Persistent pain will be evaluated through these initial interventions, potentially adjusting treatment based on pain diary results and functional improvements. Continuation of supportive measures, including physical therapy, postural alignment, and girdles, will be advised as part of ongoing care. I discussed with the patient the chronic lower back pain stemming from degenerative joint disease and spinal stenosis, clarifying the rationale for non-surgical options left open by the previous surgical evaluation. I explained the diagnostic injections' purpose to evaluate potential nerve ablation outcomes, highlighting no steroid involvement to prevent adverse reactions. We discussed the possible transition to radiofrequency ablation based on outcome effectiveness, avoiding worsening with therapeutic interventions after unsatisfactory steroid experiences. Lymphedema management was addressed, with a referral proposed for advanced treatment to optimize fluid retention strategies. The discussion included balancing pain management with minimal side effects, reinforcing the importance of her current regimen of gabapentin and physical therapy exercises in maintaining functionality and quality of life while limiting potential for complications. Will schedule for fluoroscopy guided bilateral diagnostic L3-L4 DR L5 medial branch blocks with local anesthetic. Patient was informed and verbally consented to the use of an ambient scribe for clinic note documentation during this visit. Orders: Referrals Vascular Surgery Referral I89.0 - Lymphedema, not elsewhere classified Coding Level of Care Code New Pt Level 4 (08060) Complex EM visit Add On G2211 Diagnoses Lymphedema I89.0 Spinal stenosis of lumbar region, unspecified whether neurogenic claudication present M48.061 Neurogenic claudication status: unspecified Lumbar spondylosis M47.816 Chronic pain syndrome G89.4
[2025-03-12 09:07] VITALS: BP 187/95; PULSE 108; O2SAT 96; BMI 48.3
== END 2025-03-12 09:37 | disposition home or self-care (01) ==
LOC: HO.PMC 08:57
PROVIDERS: PCP Internal Medicine; Referring Provider Physician Assistant; Visit Provider Registered Nurse Emergency
DX: I89.0 Lymphedema, not elsewhere classified (principal); M48.061 Spinal stenosis, lumbar region without neurogenic claudication; M47.816 Spondylosis without myelopathy or radiculopathy, lumbar region; G89.4 Chronic pain syndrome
CPT/HCPCS: 99204; G2211

== ENCOUNTER → 2025-03-12 08:57 | Outpatient (BNVA) | payer MEDICARE, SELFPAY | PROVIDERS: PCP Internal Medicine; Referring Provider Physician Assistant; Visit Provider Registered Nurse Emergency | DX: I89.0 Lymphedema, not elsewhere classified (principal); M48.061 Spinal stenosis, lumbar region without neurogenic claudication; M47.816 Spondylosis without myelopathy or radiculopathy, lumbar region; G89.4 Chronic pain syndrome | CPT/HCPCS: 99202 ==

== ENCOUNTER 2025-03-25 11:31 | Outpatient (AMB) | payer MEDICARE, SELFPAY ==
[2025-03-25 11:33] VITALS: BMI 48.3
--- NOTE | 2025-03-25 11:33 | A.OFFVIS_ITS ---
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 Left LE worse than Right LE for many years, possibly 50 years per pt. Technical Support Manager Required: No Accompanied by: Self / Same As Patient Allergies mold [MOLD] Allergy (Intermediate, Verified 03/25/25 11:38) COUGHING, SINUS CONGESTION Penicillins [PENICILLINS] Allergy (Intermediate, Verified 03/25/25 11:38) REVERSE REACTION MAKES PT FEEL WORSE HPI HPI EXTRACTION OPERATOR referral for lymphedema: Details: Izabel, a pleasant 84yo female patient, is presenting today with her for a referral from her PCP for concerns of lymphedema/swollen legs. She has been suffering from swollen legs, L>R and now more equal, for appx 50y. Complaints include pain over, swelling of lower extremities, cramping, fatigue, and heaviness of the lower extremities. It has been affecting their daily activities including walking, standing, and any physical activity. It is noted in both legs. She does wear compression socks and wraps her legs daily with lymphedema wraps. She also elevates her legs. She is not/never been a smoker but was exposed to secondhand smoke for years and suffers from COPD. She is a diabetic, and she states her BG is under control; her BG readings consistently stay under 200. She is on daily diuretics, which she does not believe helps. Patient denies any previous venous surgery or injections. Patient denies any history of DVT/ PE. Patient denies any history of phlebitis. Trial of compression includes - elevation and compression socks with a little relief They now present for vascular evaluation regarding their varicose veins. [facility] Medical History Right heart failure Chronic respiratory failure with hypoxia and hypercapnia Obstructive sleep apnea CAD (coronary artery disease) PVC (premature ventricular contraction) Morbid obesity Dyslipidemia Type 2 diabetes mellitus Lymphedema Hypertension COPD (chronic obstructive pulmonary disease) Arthritis Surgical History History of hysterectomy History of knee replacement Family History Mother Coronary artery disease Social History Household Members: Significant Other Housing: Apartment Do you presently have visiting nurse or other home services: No Alcohol intake: never Patient Tobacco Use Status: Never used Tobacco e-Cigarette/Vaping Use: Never Used Second Hand Smoke Exposure: No Advance Directives Date on File: 05/11/22 service: No Current occupational status: retired Cognitive needs: Yes (cane) Hearing needs: Yes (right ear hearing aid) Vision needs: No Review of Systems Const Reports as per HPI and Denies weakness ENT Reports Normal hearing present and Denies dizziness Card Reports as per HPI, Denies chest pain, Denies chest pain at rest, Denies chest pain with activity, Denies dyspnea and Denies dyspnea on exertion Resp Reports as per HPI, Denies cough, Denies dyspnea and Denies dyspnea on exertion GI Reports as per HPI, Denies abdominal pain, Denies nausea and Denies vomiting Musc Denies numbness Skin/Breast Reports as per HPI, Denies erythema and Denies wounds Neuro Reports Normal hearing present, Denies dizziness, Denies numbness, Denies Sensory deficit (Neuro) and Denies weakness Psych Reports no additional complaints Endo Reports no additional complaints Physical Exam Vital Signs: BMI result Body Mass Index 48.3 Const General: healthy appearing and no acute distress Orientation/consciousness: patient oriented x3 HEENT Head: Yes normal to inspection Ears: hearing grossly normal bilaterally Mouth: Normal oral and palatal mucosa present Resp Effort & Inspection: normal respiratory effort and able to speak in complete sentences Auscultation: clear to auscultation bilaterally Cardio Jugular venous distension: no JVD Rate: regular rate Rhythm: regular rhythm Heart sounds: S1 normal heart sound present and S2 normal heart sound present Bruits: no abdominal aortic bruits, no carotid bruits, no femoral bruits and no renal bruits Peripheral pulses: Peripheral pulses 2+ throughout GI Inspection: Yes normal to inspection Palpation (GI): No Abdominal aortic bruit present Skin General skin exam: no rashes or lesions noted Wounds: no wounds Hair: normal Neuro General: patient oriented x3 Cranial nerves: Yes Normal hearing present Cognition (Neuro): normal cognition Gait exam (Neuro): Normal gait present Motor exam (neuro): 5/5 motor strength present throughout Sensory Exam: No Sensory deficit (Neuro) Extrem Other: Bilateral lower extremities: both wrapped with compression socks on; not taken down. +3 pitting edema noted. Hyperkeratosis, lymporrhea, and hyperpigmentation noted on the upper calves/thighs. CEAP: C - 4 E - primary A - superficial P - reflux General: Yes normal to inspection, Yes full ROM, Yes capillary refill normal and Yes normal gait Assessment & Plan Assessment & Plan (1) Lymphedema: Code(s): I89.0 - Lymphedema, not elsewhere classified Category: Medical Plan: Izabel is presenting today for ongoing lymphedema concerns. In short the patient has late on sent lymphedema. The patient has been on conservative treatment for at least 3 months; she has been treated for >10+ years, with minimal relief. Patient has tried 30 mm of mercury compression garments, elevation, exercise, healthy diet, and doing manual says self MLD to the best of their ability for over 4 weeks but with no significant relief. She has been compliant with the program but has provided minimal relief. In addition, on physical exam, we are noticing hyperpigmentation, lymphorrhea, and hyperplasia. It appears that she has stage 2 lymphedema. Patient has completed multiple forms of conservative therapy yet significant symptoms remain. Patient requires the use of a pneumatic compression device which we will assist in trying to have the patient obtain them. A pneumatic compression device will help reduce swelling and other lymphedema comorbidities. Due to multiple factors, having a home visit with [facility] would be the best for her. Thank you for allowing us to assist in this patient's care. (2) Varicose veins of both lower extremities with inflammation: Code(s): I83.11 - Varicose veins of right lower extremity with inflammation; I83.12 - Varicose veins of left lower extremity with inflammation Category: Medical Plan: Izabel is presenting today for concerns of bilateral lower extremity swelling and pain. She does have a lengthy hx of lymphedema but we will be ruling out any vascular concerns, which has not been done yet. In short, the patient has evidence of venous insufficiency. I have discussed the pathophysiology with the patient. In addition I have provided informational material regarding venous disease to the patient. We have discussed conservative measures including compression, elevation, and exercise. I have taken the liberty of ordering venous insufficiency testing with the patient. They will follow up with me after testing. The patient had an opportunity to ask questions regarding the treatment plan. All questions were answered. Imaging studies, laboratory studies and physical exam results were discussed and reviewed in detail. No major barriers to understanding were identified. The patient expressed understanding and agreement with the above treatment plan. The patient is aware they should contact our office by phone for worsening of the current condition or the appearance of new symptoms. Thank you for allowing me to participate in the vascular care of this patient. If you have any questions or concerns regarding the treatment for the above condition please do not hesitate to contact me. The office telephone contact is [phone]. This note is constructed using voice recognition software. While every effort has been made to ensure accuracy, cruise agent errors may have been included. Thank you for allowing me to participate in the care of your patient. Yours sincerely, GREGORY Oquendo Orders: Orders US venous duplex LE BI 1 Week I83.11 - Varicose veins of right lower extremity with inflammation, I83.12 - Varicose veins of left lower extremity with inflammation Coding Level of Care Code New Pt Level 4 (44443) Diagnoses Lymphedema I89.0 Varicose veins of both lower extremities with inflammation I83.11; I83.12
== END 2025-03-25 12:02 | disposition home or self-care (01) ==
LOC: HO.HVS 11:32
PROVIDERS: PCP Internal Medicine; Visit Provider Physician Assistant Surgical
DX: I89.0 Lymphedema, not elsewhere classified (principal); I83.11 Varicose veins of right lower extremity with inflammation; I83.12 Varicose veins of left lower extremity with inflammation
CPT/HCPCS: 99204

== ENCOUNTER → 2025-03-25 11:31 | Outpatient (BNVA) | payer MEDICARE, SELFPAY | PROVIDERS: PCP Internal Medicine; Visit Provider Physician Assistant Surgical | DX: I89.0 Lymphedema, not elsewhere classified (principal); I83.11 Varicose veins of right lower extremity with inflammation; I83.12 Varicose veins of left lower extremity with inflammation | CPT/HCPCS: 99202 ==

== ENCOUNTER → 2025-04-13 10:19 | Outpatient (BNV) | payer MEDICARE, SELFPAY | PROVIDERS: Visit Provider Radiology Diagnostic Radiology | DX: I83.11 Varicose veins of right lower extremity with inflammation (principal); I83.12 Varicose veins of left lower extremity with inflammation | CPT/HCPCS: 93970 ==

== ENCOUNTER 2025-04-13 10:22 | Outpatient (REF) | payer MEDICARE, SELFPAY ==
--- NOTE | ~2025-04-13 | US_ITS ---
EXAMINATION: US LOWER EXTREMITY VENOUS (REFLUX EXAM), BILATERAL CLINICAL INFORMATION: Varicose veins of the lower extremity with inflammation COMPARISON: None. TECHNIQUE: Color flow triplex imaging and compression Doppler was performed to evaluate both the deep and the superficial systems bilaterally. To evaluate the superficial system, the examination was performed in the upright position. Color-flow Doppler ultrasound and compression ultrasound were utilized. In addition, maneuvers were utilized to demonstrate reflux. FINDINGS: 1. DEEP VENOUS ULTRASOUND OF THE RIGHT LOWER EXTREMITY: Common Femoral Vein: Compressible, normal respiratory variation and augmented flow. Femoral Vein: Compressible, normal color flow and augmentation. Popliteal Vein: Compressible, normal augmentation. Deep Reflux: There is no evidence of reflux in the deep system in either the common femoral vein, superficial femoral or the popliteal vein. There is no evidence of a Del Valle's cyst. 2. SUPERFICIAL ULTRASOUND WITH DOPPLER OF RIGHT LOWER EXTREMITY: GREAT SAPHENOUS VEIN: Saphenofemoral Junction: 1.1 cm; Reflux: 0 ms Proximal Thigh: 0.3 cm; Reflux: 2728 ms Mid Thigh: 0.2 cm; Reflux: 632 ms Distal Thigh: 0.2 cm; Reflux: 0 ms At Knee: 0.2 cm; Reflux: 0 ms Proximal Calf: Not visualized Mid Calf: Not visualized Distal Calf: Not visualized Lateral accessory GREAT SAPHENOUS VEIN: Saphenofemoral Junction: 0.4 cm; Reflux: 0 ms Mid Thigh: 0.3 cm; Reflux: 0 ms DUPLICATED MEDIAL GREAT SAPHENOUS VEIN: Diameter: None imaged Reflux: NA DUPLICATED LATERAL GREAT SAPHENOUS VEIN: Diameter: None imaged Reflux: NA SMALL SAPHENOUS VEIN: Drainage: Popliteal vein Saphenopopliteal Junction: 0.4 cm; Reflux: 0 ms Mid calf: 0.3 cm; Reflux: 0 ms Distal: 0.2 cm; Reflux: 1328 ms VEIN OF GIACOMINI: Size: 0.3 cm Reflux: 0 ms PERFORATORS: Location: Small saphenous vein, proximal calf Size: 0.15 cm Reflux: 0 ms Location: Into varicosity, proximal calf Size: 0.2 cm Reflux: 0 ms VARICOSITIES > 3mm: Location: PROXIMAL gastrocnemius vein Size: 0.4 cm Reflux: 0 ms Location: Small saphenous vein, proximal calf Size: 0.3 cm Reflux: 0 ms Location: Small saphenous vein, distal calf Size: 0.4 cm Reflux: 0 ms Location: Right proximal calf Size: 0.4 cm Reflux: 0 ms Location: Greater saphenous vein, distal calf Size: 0.3 cm Reflux: 0 ms 3. DEEP VENOUS ULTRASOUND OF THE LEFT LOWER EXTREMITY: Common Femoral Vein: Compressible, normal respiratory variation and augmented flow. Femoral Vein: Compressible, normal color flow and augmentation. Popliteal Vein: Compressible, normal augmentation. Deep Reflux: There is no evidence of reflux in the deep system in either the common femoral vein, superficial femoral or the popliteal vein. 4. SUPERFICIAL ULTRASOUND WITH DOPPLER OF LEFT LOWER EXTREMITY: GREAT SAPHENOUS VEIN: Saphenofemoral Junction: 0.4 cm; Reflux: 0 ms Proximal Thigh: 0.3 cm; Reflux: 0 ms Mid Thigh: 0.2 cm; Reflux: 700 ms Distal Thigh: 0.2 cm; Reflux: 1380 ms At Knee: 0.1 cm; Reflux: 0 ms Proximal Calf: 0.2 cm; Reflux: 0 ms Mid Calf: 0.3 cm; Reflux: 732 ms Distal Calf: 0.2 cm; Reflux: 0 ms Lateral/Medial accessory GREAT SAPHENOUS VEIN: None imaged DUPLICATED MEDIAL GREAT SAPHENOUS VEIN: Diameter: None imaged cm Reflux: NA ms DUPLICATED LATERAL GREAT SAPHENOUS VEIN: Diameter: None imaged. cm Reflux: NA ms SMALL SAPHENOUS VEIN: Drainage: Popliteal vein Saphenopopliteal Junction: 0.6 cm; Reflux: 0 ms Proximal: 0.5 cm; Reflux: 0 ms Distal: 0.3 cm; Reflux: 0 ms VEIN OF GIACOMINI: Size: 0.2 Reflux: 0 PERFORATORS: Location: Greater saphenous vein, mid calf Size: 0.2 cm Reflux: 0 ms Location: Greater saphenous vein, mid calf Size: 0.2 cm Reflux: 0 ms VARICOSITIES > 3mm: Location: Small saphenous vein, distal calf Size: 0.4 cm Reflux: 0 ms US/US venous duplex LE BI IMPRESSION: Right: Venous reflux is demonstrated and varicosities are present. Left: Venous reflux is demonstrated as well as varicose veins. Electronically signed by: Aravind Ponce MD 04/13/2025 03:51 PM EDT
== END 2025-04-13 10:23 | disposition home or self-care (01) ==
LOC: HO.US 10:22
PROVIDERS: Visit Provider Physician Assistant Surgical
DX: I83.11 Varicose veins of right lower extremity with inflammation (principal); I83.12 Varicose veins of left lower extremity with inflammation
CPT/HCPCS: 93970

== ENCOUNTER 2025-04-14 12:57 | Outpatient (AMB) | payer MEDICARE, SELFPAY ==
[2025-04-14 13:14] VITALS: BMI 48.3
--- NOTE | 2025-04-14 13:14 | MHC.OFFVIS ---
Vital Signs 04/14/25 13:14 Height 5 ft 5 in Weight 290 lb BMI 48.3 Intake Visit Reasons: Lymphedema clinic Intake Note: bilateral LE swelling Data Input Clerk Required: No Accompanied by: Spouse Allergies mold [MOLD] Allergy (Intermediate, Verified 04/14/25 13:37) COUGHING, SINUS CONGESTION Penicillins [PENICILLINS] Allergy (Intermediate, Verified 04/14/25 13:37) REVERSE REACTION MAKES PT FEEL WORSE HPI HPI Lymphedema clinic: Details: Izabel is presenting today for our lymphedema clinic. She continues to endorse bilateral lower extremity swelling with pain, discoloration, and weeping. She has a hx of lymphedema and has been treated in the past for it with success. She has not been treated in the last few years however. She has no new concerns today. [facility] Medical History Right heart failure Chronic respiratory failure with hypoxia and hypercapnia Obstructive sleep apnea CAD (coronary artery disease) PVC (premature ventricular contraction) Morbid obesity Dyslipidemia Type 2 diabetes mellitus Lymphedema Hypertension COPD (chronic obstructive pulmonary disease) Arthritis Surgical History History of hysterectomy History of knee replacement Family History Mother Coronary artery disease Social History Household Members: Significant Other Housing: Apartment Do you presently have visiting nurse or other home services: No Alcohol intake: never Patient Tobacco Use Status: Never used Tobacco e-Cigarette/Vaping Use: Never Used Second Hand Smoke Exposure: No Advance Directives Date on File: 05/11/22 service: No Current occupational status: retired Cognitive needs: Yes (cane) Hearing needs: Yes (right ear hearing aid) Vision needs: No Review of Systems Const Reports as per HPI and Denies weakness ENT Reports Normal hearing present and Denies dizziness Card Reports as per HPI, Denies chest pain, Denies chest pain at rest, Denies chest pain with activity, Denies dyspnea and Denies dyspnea on exertion Resp Reports as per HPI, Denies cough, Denies dyspnea and Denies dyspnea on exertion GI Reports as per HPI, Denies abdominal pain, Denies nausea and Denies vomiting Musc Denies numbness Skin/Breast Reports as per HPI, Denies erythema and Denies wounds Neuro Reports Normal hearing present, Denies dizziness, Denies numbness, Denies Sensory deficit (Neuro) and Denies weakness Psych Reports no additional complaints Endo Reports no additional complaints Physical Exam Vital Signs: BMI result Body Mass Index 48.3 Const General: healthy appearing and no acute distress Orientation/consciousness: patient oriented x3 HEENT Head: Yes normal to inspection Ears: hearing grossly normal bilaterally Mouth: Normal oral and palatal mucosa present Resp Effort & Inspection: normal respiratory effort and able to speak in complete sentences Auscultation: clear to auscultation bilaterally Cardio Jugular venous distension: no JVD Rate: regular rate Rhythm: regular rhythm Heart sounds: S1 normal heart sound present and S2 normal heart sound present Bruits: no abdominal aortic bruits, no carotid bruits, no femoral bruits and no renal bruits Peripheral pulses: Peripheral pulses 2+ throughout GI Inspection: Yes normal to inspection Palpation (GI): No Abdominal aortic bruit present Skin General skin exam: no rashes or lesions noted Wounds: no wounds Hair: normal Neuro General: patient oriented x3 Cranial nerves: Yes Normal hearing present Cognition (Neuro): normal cognition Gait exam (Neuro): Normal gait present Motor exam (neuro): 5/5 motor strength present throughout Sensory Exam: No Sensory deficit (Neuro) Extrem Other: Bilateral lower extremities: +3 pitting edema noted. Hyperkeratosis, lymporrhea, and hyperpigmentation noted on the upper calves/thighs. General: Yes normal to inspection, Yes full ROM, Yes capillary refill normal and Yes normal gait Assessment & Plan Assessment & Plan (1) Lymphedema: Code(s): I89.0 - Lymphedema, not elsewhere classified Category: Medical Plan: Izabel is presenting today to be fitted for lymphedema pumps. They have had more than 1 month, starting on 03/25/25, of conservative treatments with elevation, compression stockings daily use with 20-30mmHg, and physical activity with minimal relief. They continue to have persistent symptoms despite conservative treatments. They are presenting with hyperpigmentation, lymphorrhea, hyperkeratosis, and 2+ pitting edema. They state the left leg is worse than right and there is extension into her abdominal area. They also complains of pain and itchiness. It appears that they has stage II lymphedema. Emeka from [employer] will be fitting them for a pneumatic compression device, which will get mailed to their house. The patient has lymphedema that extends to her upper thigh and abdominal region. The basic pneumatic compression device is not adequate for the patient; it has been trialed but is not clinically appropriate due to the extensive lymphedema noted. The advanced compression device will be the best in this case. Thank you allowing us to care for the patient. Coding Level of Care Code Est Pt Level 4 (69422) Diagnoses Lymphedema I89.0
== END 2025-04-14 13:35 | disposition home or self-care (01) ==
LOC: HO.HVS 12:58
PROVIDERS: PCP Internal Medicine; Visit Provider Physician Assistant Surgical
DX: I89.0 Lymphedema, not elsewhere classified (principal)
CPT/HCPCS: 99214

== ENCOUNTER → 2025-04-14 12:57 | Outpatient (BNVA) | payer MEDICARE, SELFPAY | PROVIDERS: PCP Internal Medicine; Visit Provider Physician Assistant Surgical | DX: I89.0 Lymphedema, not elsewhere classified (principal) | CPT/HCPCS: 99212 ==

== ENCOUNTER 2025-04-15 13:50 | Outpatient (AMB) | payer MEDICARE, SELFPAY ==
[2025-04-15 13:53] VITALS: BP 144/76; PULSE 104; BMI 46.6
--- NOTE | 2025-04-15 13:53 | MHC.OFFVIS ---
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 Lot Utility Worker Required: No Global Sales Executive: Global Sales Executive Present Accompanied by: Spouse Allergies mold [MOLD] Allergy (Intermediate, Verified 04/14/25 13:37) COUGHING, SINUS CONGESTION Penicillins [PENICILLINS] Allergy (Intermediate, Verified 04/14/25 13:37) REVERSE REACTION MAKES PT FEEL WORSE Medication List - Last Reconciled 04/15/25 by Jaxson Gonzales MD aspirin 81 mg PO DAILY bumetanide 2 mg PO BID clotrimazole-betamethasone 1-0.05 % 1 appl topical BID PRN diclofenac sodium 1% (Voltaren Arthritis Pain) 4 grams topical QID diltiazem HCl ER (Tiadylt ER) 360 mg PO DAILY furosemide 80 mg PO DAILY gabapentin 300 mg PO BID gemfibrozil 600 mg PO DAILY glucosamine sulfate (Glucosamine) 500 mg PO DAILY ipratropium bromide 2 sprays intranasal BID ipratropium-albuterol 0.5 mg-3 mg(2.5 mg base)/3 mL 3 mL inhalation Q6H PRN lidocaine 5% 1 patch topical DAILY meloxicam 15 mg PO DAILY metformin ER 500 mg PO DAILY metoprolol tartrate 25 mg PO DAILY omeprazole 20 mg PO DAILY@0630 ondansetron 4 mg PO Q8H 3 days pravastatin 40 mg PO DAILY HPI Comments Details: Izabel comes for follow-up. It seems like she is on 2 different loop diuretics both Lasix and bumetanide which is highly unusual. It seems like she is taking both of them. She has not had any hospitalization related to heart failure. She is not currently using oxygen therapy as recommended. She is also not using CPAP. Continues to have exertional shortness of breath. Denies any palpitations, lightheadedness, syncope. No exertional chest pain. [facility] Medical History Right heart failure Chronic respiratory failure with hypoxia and hypercapnia Obstructive sleep apnea CAD (coronary artery disease) PVC (premature ventricular contraction) Morbid obesity Dyslipidemia Type 2 diabetes mellitus Lymphedema Hypertension COPD (chronic obstructive pulmonary disease) Arthritis Surgical History History of hysterectomy History of knee replacement Family History Mother Coronary artery disease Social History Household Members: Significant Other Housing: Apartment Do you presently have visiting nurse or other home services: No Alcohol intake: never Patient Tobacco Use Status: Never used Tobacco e-Cigarette/Vaping Use: Never Used Second Hand Smoke Exposure: No Advance Directives Date on File: 05/11/22 service: No Current occupational status: retired Cognitive needs: Yes (cane) Hearing needs: Yes (right ear hearing aid) Vision needs: No Review of Systems Const Denies chills, Denies fatigue, Denies fever(s), Denies frequent falls, Denies weakness, Denies weight gain and Denies weight loss ENT Denies dizziness Card Denies chest pain, Denies leg edema, Denies lightheadedness, Denies palpitations, Denies dyspnea, Denies dyspnea on exertion, Denies orthopnea and Denies other (loss of consciousness) Resp Denies cough, Denies dyspnea and Denies dyspnea on exertion GI Denies hematochezia and Denies change in stool character Musc Denies abnormal gait, Denies muscle weakness, Denies numbness, Denies radiating pain into limb and Denies tingling Neuro Denies Abnormal speech present, Denies abnormal gait, Denies dizziness, Denies frequent falls, Denies numbness, Denies tingling and Denies weakness Endo Denies fatigue and Denies palpitations Physical Exam Vital Signs: Last Vital Signs Pulse 104 H 04/15/25 13:53 BP 144/76 H 04/15/25 13:53 BMI result Body Mass Index 46.6 Const General: cooperative, alert, awake and in distress mild and respiratory Nutritional Appearance: obese morbidly obese Orientation/consciousness: patient oriented x3 Limitations: no limitations HEENT Head: Yes normocephalic and Yes atraumatic Neck Neck: Yes trachea midline, Yes supple and Yes JVD Resp Effort & Inspection: normal respiratory effort Auscultation: no rales, wheezes, diminished lung sounds and bronchovesicular breath sounds Cardio Jugular venous distension: JVD Palpation: normal PMI Rate: regular rate Rhythm: regular rhythm Heart sounds: S1 normal heart sound present, S2 normal heart sound present, no click, no gallops, no murmurs and no rubs GI Inspection: Yes obesity Auscultation: normal bowel sounds Skin General skin exam: no rashes or lesions noted and ecchymosis Neuro General: patient oriented x3 and no focal motor deficits Speech: No Abnormal speech present Extrem General: No clubbing, No cyanosis and Yes edema (2 to 3+ below knee, marked lymphedema on the left) Assessment & Plan Assessment & Plan (1) Right heart failure: Code(s): I50.810 - Right heart failure, unspecified Category: Medical Plan: Right heart failure in his elderly woman secondary to severe pulmonary parenchymal disease causing pulmonary hypertension and RV dysfunction. Clinically appears to be euvolemic although she is not on proper diuretic regimen. Have discontinued the furosemide therapy and have increase bumetanide to 3 mg twice a day. Heart failure management was discussed. Daily weight monitoring avoidance salt loading was discussed. Importance of oxygen therapy was discussed although she is not currently interested in it. Also recommended CPAP therapy which she is currently not using. She is at risk for hospitalization related to both cardiopulmonary decompensation. She understands that. If she does not respond or has worsening heart failure syndrome will need additional therapy with metolazone. Check BMP in 1-2 weeks (2) CAD (coronary artery disease): Comment: Moderate diffuse three-vessel disease with calcified plaque without significant obstructive lesions by coronary CTA in March 2023 Code(s): I25.10 - Atherosclerotic heart disease of andreafski coronary artery without angina pectoris Category: Medical Plan: Diffuse coronary artery disease without any significant anginal symptoms. Continue aspirin therapy. Continue aggressive blood pressure control. Continue current lipid management although would consider switching from gemfibrozil to fenofibrate therapy. Target goal LDL less than 70 mg/dL. Blood pressure is currently well optimized. Will follow up in the clinic in 1 year's time, sooner p.r.n.. Thank you for allowing me to partake in her care Medications: New bumetanide 3 mg (3 x 1 mg) PO BID 200 tabs 5RF Discontinued bumetanide Discontinued Reason: Doctor's Order 2 mg PO BID 180 tabs 3RF Coding Level of Care Code Est Pt Level 4 (20951) Complex EM visit Add On G2211 Diagnoses Right heart failure I50.810 CAD (coronary artery disease) I25.10
== END 2025-04-15 14:14 | disposition home or self-care (01) ==
LOC: HO.HCS 13:51
PROVIDERS: PCP Internal Medicine; Visit Provider Internal Medicine Cardiovascular Disease
DX: I50.810 Right heart failure, unspecified (principal); I25.10 Atherosclerotic heart disease of native coronary artery without angina pectoris
CPT/HCPCS: 99214; G2211

== ENCOUNTER → 2025-04-15 13:50 | Outpatient (BNVA) | payer MEDICARE, SELFPAY | PROVIDERS: PCP Internal Medicine; Visit Provider Internal Medicine Cardiovascular Disease | DX: I50.810 Right heart failure, unspecified (principal); I25.10 Atherosclerotic heart disease of native coronary artery without angina pectoris | CPT/HCPCS: 99212 ==

== ENCOUNTER 2025-04-20 08:53 | Outpatient (AMB) | payer MEDICARE, SELFPAY ==
--- NOTE | 2025-04-20 08:57 | A.OFFVIS_ITS ---
Vital Signs 04/20/25 08:58 Height 5 ft 5 in Weight 284 lb 4 oz BMI 47.3 BP 130/70 Blood Pressure Location Lt radial Position Sitting Pulse 60 Pulse Source Pulse Oximeter Pulse Oximetry (%) 95 Oxygen Delivery Method Room Air Intake Visit Reasons: solitary pulm nodule Allergies mold [MOLD] Allergy (Intermediate, Verified 04/20/25 09:02) COUGHING, SINUS CONGESTION Penicillins [PENICILLINS] Allergy (Intermediate, Verified 04/20/25 09:02) REVERSE REACTION MAKES PT FEEL WORSE HPI HPI solitary pulm nodule: Details: Izabel is an 84 year old female, never smoker, with underlying history of moderate COPD refusing supplemental oxygen, MAGAN refusing CPAP therapy, right sided heart failure followed by cardiology on bumex 3 mg BID, chronic lymphedema BLE and morbid obesity. At baseline she reports moderate control of symptoms on DuoNeb, Formoterol and Acapella valve. Today she presents for a routine visit. She reports dyspnea, wheezing and productive cough are at baseline, however very vague today regarding symptoms. She denies any visits to urgent care or hospitalizations since the last visit related to respiratory distress. Since the last visit, [place] [facility] who recently increased Bumex from 2mg BID to 3mg BID with possibility of adding metolazone. [facility] Medical History Right heart failure Chronic respiratory failure with hypoxia and hypercapnia Obstructive sleep apnea CAD (coronary artery disease) PVC (premature ventricular contraction) Morbid obesity Dyslipidemia Type 2 diabetes mellitus Lymphedema Hypertension COPD (chronic obstructive pulmonary disease) Arthritis Surgical History History of hysterectomy History of knee replacement Family History Mother Coronary artery disease Social History Household Members: Significant Other Housing: Apartment Do you presently have visiting nurse or other home services: No Alcohol intake: never Patient Tobacco Use Status: Never used Tobacco e-Cigarette/Vaping Use: Never Used Second Hand Smoke Exposure: No Advance Directives Date on File: 05/11/22 service: No Current occupational status: retired Cognitive needs: Yes (cane) Hearing needs: Yes (right ear hearing aid) Vision needs: No Review of Systems Const Denies chills, Denies excessive sweating, Denies fever(s), Denies headache(s) and Denies night sweats Eyes Denies dry eyes ENT Reports Normal hearing present, Denies headache(s) and Reports nasal congestion Card Denies chest pain, Denies chest pain at rest, Denies chest pain with activity, Reports dyspnea on exertion and Reports orthopnea Resp Denies change in phlegm color, Denies chest congestion, Reports cough, Denies hemoptysis, Denies pain on inspiration, Denies pain with cough, Reports dyspnea on exertion and Denies stridor Musc Denies myalgias Neuro Reports Normal hearing present and Denies headache(s) Endo Denies excessive sweating Aller/Immun Denies seasonal rhinorrhea Physical Exam Vital Signs: Last Vital Signs Pulse 60 04/20/25 08:58 BP 130/70 04/20/25 08:58 Pulse Ox 95 04/20/25 08:58 Oxygen Delivery Method Room Air 04/20/25 08:58 BMI result Body Mass Index 47.3 Const General: cooperative and alert Nutritional Appearance: obese Orientation/consciousness: patient oriented x3 Limitations: no limitations HEENT Head: Yes normal to inspection, Yes normocephalic and Yes atraumatic Ears: hearing grossly normal bilaterally and external ears normal Eyes General: appearance normal, both eyes and all related structures Periorbital: periorbital findings abnormal bilateral Eyelids: Yes eyelid abnormality Sclerae: sclerae normal EOM: EOMs intact bilaterally Neck Neck: Yes normal visual inspection and Yes no lymphadenopathy Lymphatic: no lymphadenopathy noted Chest Chest palpation & inspection: normal inspection of the chest Resp Effort & Inspection: able to speak in complete sentences, Actively coughing Quality: wet, no stridor, not tachypneic, no tripod positioning and no use of accessory muscles Auscultation: no crackles, no rales, no rhonchi, no wheezes and diminished lung sounds Cardio Jugular venous distension: no JVD Rate: regular rate Rhythm: regular rhythm Skin Other: warm, dry General skin exam: no rashes or lesions noted Neuro General: patient oriented x3 Cranial nerves: Yes Normal hearing present Cognition (Neuro): normal cognition Gait exam (Neuro): Normal gait present Extrem Other: chronic lymphedema General: Yes pedal edema Psych Appearance: grossly normal and well kempt Speech and movement: Normal speech and movement present and Clear speech present Affect: normal affect Attitude: cooperative Thought process: Normal thought process present Thought content: Normal thought content present Insight: Good insight present (Psych) Judgement: Good judgement present (Psych) Assessment & Plan Assessment & Plan (1) COPD (chronic obstructive pulmonary disease): Code(s): J44.9 - Chronic obstructive pulmonary disease, unspecified Category: Medical Qualifiers: COPD type: COPD with acute exacerbation Qualified Code(s): J44.1 - Chronic obstructive pulmonary disease with (acute) exacerbation (2) Obstructive sleep apnea: Comment: Noncompliant with CPAP Code(s): G47.33 - Obstructive sleep apnea (adult) (pediatric) Category: Medical (3) Requires supplemental oxygen: Code(s): Z99.81 - Dependence on supplemental oxygen Category: Medical (4) Nocturnal hypoxemia: Code(s): G47.34 - Idiopathic sleep related nonobstructive alveolar hypoventilation Category: Medical (5) Lymphedema: Code(s): I89.0 - Lymphedema, not elsewhere classified Category: Medical (6) Right heart failure: Code(s): I50.810 - Right heart failure, unspecified Category: Medical Plan At this time, Izabel reports moderate control of respiratory symptoms on current regimen. Unclear if she has current rx of budesonide, will send prescription in addition to DuoNeb to be used BID and encouraged continued use of acapella valve. We reviewed all respiratory medications should be prescribed from this office so we are able to ensure proper medication use for COPD. We again discussed the adverse effects of hypoxia and untreated MAGAN, however patient continues to adamantly refuse, understanding the negative cardiopulmonary effects. Patient also stated that her current nebulizer machine has been broken for the last week and is expecting a delivery next month for a replacement unit. Offered nebulizer treatment in office today as well as a nebulizer for home use, however she declined. All questions were answered and patient is in agreement of plan. Will follow up in 2-3 months or sooner if needed. Medications: New budesonide 0.25 mg (2 mL) inhalation BID 60 mL 6RF Refilled ipratropium-albuterol 0.5 mg-3 mg(2.5 mg base)/3 mL 3 mL inhalation Q6H PRN 180 mL 6RF wheezing Coding Level of Care Code Est Pt Level 4 (68504) Complex EM visit Add On G2211 Diagnoses COPD (chronic obstructive pulmonary disease) J44.1 COPD type: COPD with acute exacerbation Obstructive sleep apnea G47.33 Requires supplemental oxygen Z99.81 Nocturnal hypoxemia G47.34 Lymphedema I89.0 Right heart failure I50.810
[2025-04-20 08:58] VITALS: BP 130/70; PULSE 60; O2SAT 95; BMI 47.3
== END 2025-04-20 09:34 | disposition home or self-care (01) ==
LOC: HO.HPSW 08:54
PROVIDERS: PCP Internal Medicine; Visit Provider Nurse Practitioner Family
DX: J44.1 Chronic obstructive pulmonary disease with (acute) exacerbation (principal); G47.33 Obstructive sleep apnea (adult) (pediatric); Z99.81 Dependence on supplemental oxygen; G47.34 Idiopathic sleep related nonobstructive alveolar hypoventilation; I89.0 Lymphedema, not elsewhere classified; I50.810 Right heart failure, unspecified
CPT/HCPCS: 99214; G2211

== ENCOUNTER → 2025-04-20 08:53 | Outpatient (BNVA) | payer MEDICARE, SELFPAY | PROVIDERS: PCP Internal Medicine; Visit Provider Nurse Practitioner Family | DX: J44.1 Chronic obstructive pulmonary disease with (acute) exacerbation (principal); G47.33 Obstructive sleep apnea (adult) (pediatric); G47.34 Idiopathic sleep related nonobstructive alveolar hypoventilation; I89.0 Lymphedema, not elsewhere classified; I50.810 Right heart failure, unspecified; Z99.81 Dependence on supplemental oxygen | CPT/HCPCS: 99212 ==

== ENCOUNTER 2025-05-04 06:52 | Outpatient (REF) | payer MEDICARE, SELFPAY ==
--- NOTE | ~2025-05-04 | FL_ITS ---
EXAMINATION: FL GUIDANCE ONLY HISTORY: M47.816 - Spondylosis without myelopathy or radiculopathy, lumbar region COMPARISON: None available. TECHNIQUE: Fluoroscopy time: 0.6 minutes. Cumulative Dose: 43.4 mGy. DAP: 0.623 mGym2 Images: 6. FINDINGS: Fluoroscopic spot films of the lumbar spine in the AP projection demonstrate needles and contrast material in the regions of the bilateral L3-4, L4-5, and L5-S1 facet joints. FL/FL guidance in treatment room IMPRESSION: Fluoroscopy during procedure. Please see procedure report for additional information. Electronically signed by: Davon Zacarias MD 05/04/2025 03:34 PM EDT
== END 2025-05-04 06:53 | disposition home or self-care (01) ==
LOC: CF 06:52
PROVIDERS: Visit Provider Anesthesiology
DX: M47.816 Spondylosis without myelopathy or radiculopathy, lumbar region (principal)
CPT/HCPCS: 64493; 64494; J2003; J2795; Q9967

== ENCOUNTER 2025-05-04 14:08 | Outpatient (AMB) | payer MEDICARE, SELFPAY ==
[2025-05-04 14:22] VITALS: BP 182/80; PULSE 105; RESP 22; O2SAT 95
--- NOTE | 2025-05-04 14:22 | A.OFFVIS_ITS ---
Vital Signs 05/04/25 14:22 Weight 284 lb BP 182/80 H Blood Pressure Location Lt brachial Position Sitting Respiration 22 H Pulse 105 H Pulse Source Pulse Oximeter Pulse Oximetry (%) 95 Oxygen Delivery Method Room Air Intake Visit Reasons: BILATERAL DIAGNOSTIC L3, L4, DRL5 MBB Teacher Education Director Required: No Allergies mold (MOLD) Allergy (Intermediate, Verified 04/20/25 09:02) COUGHING, SINUS CONGESTION Penicillins (PENICILLINS) Allergy (Intermediate, Verified 04/20/25 09:02) REVERSE REACTION MAKES PT FEEL WORSE [facility] Medical History Right heart failure Chronic respiratory failure with hypoxia and hypercapnia Obstructive sleep apnea CAD (coronary artery disease) PVC (premature ventricular contraction) Morbid obesity Dyslipidemia Type 2 diabetes mellitus Lymphedema Hypertension COPD (chronic obstructive pulmonary disease) Arthritis Surgical History History of hysterectomy History of knee replacement Family History Mother Coronary artery disease Social History Household Members: Significant Other Housing: Apartment Do you presently have visiting nurse or other home services: No Alcohol intake: never Patient Tobacco Use Status: Never used Tobacco e-Cigarette/Vaping Use: Never Used Second Hand Smoke Exposure: No Advance Directives Date on File: 05/11/22 service: No Current occupational status: retired Cognitive needs: Yes (cane) Hearing needs: Yes (right ear hearing aid) Vision needs: No Physical Exam Vital Signs: Last Vital Signs Pulse 105 H 05/04/25 14:22 Resp 22 H 05/04/25 14:22 BP 182/80 H 05/04/25 14:22 Pulse Ox 95 05/04/25 14:22 Oxygen Delivery Method Room Air 05/04/25 14:22 Assessment & Plan Assessment & Plan (1) Spondylosis of lumbar region without myelopathy or radiculopathy: Code(s): M47.816 - Spondylosis without myelopathy or radiculopathy, lumbar region Category: Medical Plan Diagnostic medial branch block L3,L4 dorsal ramus L5 bilateral.? ? ?Informed consent was explained to the patient. All questions were explained and? answered.? The patient was taken inside the operating room where she was positioned prone on the operating table. Time-out was performed delineating correct site, side, the nature of the procedure, patient's allergy, . All operating room staff was participating in OR time-out procedure. ? ? The lower back was prepped with ChloraPrep and draped with sterile towels.? C- arm was brought over the operating field and sq picture of L4-, L5 vertebra and S1 AREA were delineated on the screen.? The quality of images was very poor , patient has difficulty staying prone on the operating table. Advanced scoliotic changes and advanced spondylosis were noted on the images. Point of interest were delineated as confluence of superior articular process of L4 and L5 vertebra bilaterally with corresponding transverse processes as well as confluence of the sacral alae bilaterally with superior articular process of S1.? The projection of the point of interest to the skin were injected with the small amount of local anesthetic lidocaine 2% mixed with ropivacaine 0.5% 1-1 approcimately 1 cc.? After that 22 gauge 5 inch spinal needle was driven sequentially to the points of interest in tunnel vision fashion. After needles gently contacted the bone at the point of interests the needle was injected with small amount of the contrast.? The injection of the contrast did not demonstrate any intravascular or intrathecal spread of the contrast.? After that injection of the? ropivacaine 0.5%-1cc was performed at each needle location. ?after that the needles were removed and Bandaids were applied. Orders: Orders FL guidance in treatment room Today M47.816 - Spondylosis without myelopathy or radiculopathy, lumbar region Coding Level of Care Code Procedure Only Diagnoses Spondylosis of lumbar region without myelopathy or radiculopathy M47.816
== END 2025-05-04 15:08 | disposition home or self-care (01) ==
LOC: HO.PMCPRC 14:08
PROVIDERS: PCP Internal Medicine; Visit Provider Anesthesiology
DX: M47.816 Spondylosis without myelopathy or radiculopathy, lumbar region (principal)
CPT/HCPCS: 64493; 64494

== ENCOUNTER 2025-05-06 09:47 | Outpatient (AMB) | payer MEDICARE, SELFPAY ==
[2025-05-06 09:48] VITALS: BMI 47.3
--- NOTE | 2025-05-06 09:48 | A.OFFVIS_ITS ---
Vital Signs 05/06/25 09:48 Height 5 ft 5 in Weight 284 lb BMI 47.3 Intake Visit Reasons: follow up s/p 04/13/25 Intake Note: Pt presents to the office today for a follow up s/p 04/13/25. Pt states she is still experiencing pain,weeping, and swelling in both legs. Allergies mold (MOLD) Allergy (Intermediate, Verified 05/06/25 09:48) COUGHING, SINUS CONGESTION Penicillins (PENICILLINS) Allergy (Intermediate, Verified 05/06/25 09:48) REVERSE REACTION MAKES PT FEEL WORSE HPI HPI follow up s/p 04/13/25: Details: The patient is an 85-year-old female presenting with venous insufficiency. She has a history of bilateral knee replacements, with the left knee replaced in 2009 and the right in 2015. She denies any history of blood clots or vein surgery. The patient reports significant swelling in both legs, with the left leg being more affected than the right. She wears compression stockings and elevates her legs as often as possible to manage the swelling. She is compliant with her CircAid stockings. She now presents for follow-up. She has been evaluated for lymphedema and is awaiting further contact regarding compression garments. She now presents for venous insufficiency follow-up [facility] Medical History Right heart failure Chronic respiratory failure with hypoxia and hypercapnia Obstructive sleep apnea CAD (coronary artery disease) PVC (premature ventricular contraction) Morbid obesity Dyslipidemia Type 2 diabetes mellitus Lymphedema Hypertension COPD (chronic obstructive pulmonary disease) Arthritis Surgical History History of hysterectomy History of knee replacement Family History Mother Coronary artery disease Social History Household Members: Significant Other Housing: Apartment Do you presently have visiting nurse or other home services: No Alcohol intake: never Patient Tobacco Use Status: Never used Tobacco e-Cigarette/Vaping Use: Never Used Second Hand Smoke Exposure: No Advance Directives Date on File: 05/11/22 service: No Current occupational status: retired Cognitive needs: Yes (cane) Hearing needs: Yes (right ear hearing aid) Vision needs: No Review of Systems Const Reports as per HPI ENT Reports no additional complaints Card Denies chest pain, Denies chest pain at rest and Denies chest pain with activity Resp Denies chest congestion and Denies cough GI Reports no additional complaints Musc Details: pain over varicosities, aching of lower extremities, swelling, cramping, heaviness and tiredness, itching Denies abnormal gait Skin/Breast Reports pruritus and Denies wounds Neuro Reports no additional complaints and Denies abnormal gait Psych Denies no additional complaints Physical Exam Vital Signs: BMI result Body Mass Index 47.3 Const General: cooperative, healthy appearing and comfortable Orientation/consciousness: oriented to person, oriented to place and oriented to time Neck Carotids: no bruits Chest Chest palpation & inspection: normal inspection of the chest and normal palpation of entire chest wall Resp Effort & Inspection: normal respiratory effort and able to speak in complete sentences Cardio Rate: regular rate Heart sounds: S1 normal heart sound present and S2 normal heart sound present Peripheral pulses: Peripheral pulses 2+ throughout GI Inspection: Yes normal to inspection Skin Other: +2 edema, left greater than right CEAP Classification C4 - skin color changes Ep - Etiology Primary As - superficial veins P - reflux General skin exam: dry skin Neuro General: oriented to person, oriented to place and oriented to time Extrem Right lower extremity: full ROM, normal capillary refill and edema Left lower extremity: full ROM, normal capillary refill and edema Psych Mental Status: mental status grossly normal Results Reviewed Results Reviewed: Brief summary of venous insufficiency testing is as follows: right great saphenous vein: Focally positive at thigh but small in caliber right small saphenous vein: negative right accessory vein: none present left great saphenous vein: Focally positive at knee but small in caliber left small saphenous vein: negative left accessory vein: none present Please note there is no evidence of any venous aneurysms or significant tortuosity Assessment & Plan Assessment & Plan (1) Varicose veins of both lower extremities with inflammation: Code(s): I83.11 - Varicose veins of right lower extremity with inflammation; I83.12 - Varicose veins of left lower extremity with inflammation Category: Medical Plan: Although patient is focally positive for lymphedema vein is extremely small in caliber for treatment. We did discuss routine conservative measures including compression elevation and exercise. The patient will continue workup for lymph edema and awaiting lymphedema pumps. (2) Lymphedema: Code(s): I89.0 - Lymphedema, not elsewhere classified Category: Medical Plan: Awaiting lymphedema stockings Plan Patient was informed and verbally consented to the use of an ambient scribe for clinic note documentation during this visit. Patient Instructions: - Continue wearing compression stockings daily. - Elevate legs whenever possible to reduce swelling. - Maintain regular exercise, including walking and leg lifts. - Await contact from the compression garment provider regarding delivery. Coding Level of Care Code Est Pt Level 4 (77530) Complex EM visit Add On G2211 Diagnoses Varicose veins of both lower extremities with inflammation I83.11; I83.12 Lymphedema I89.0
== END 2025-05-06 10:06 | disposition home or self-care (01) ==
LOC: HO.HVS 09:48
PROVIDERS: PCP Internal Medicine; Visit Provider Surgery Vascular Surgery
DX: I83.11 Varicose veins of right lower extremity with inflammation (principal); I83.12 Varicose veins of left lower extremity with inflammation; I89.0 Lymphedema, not elsewhere classified
CPT/HCPCS: 99214; G2211

== ENCOUNTER → 2025-05-06 09:47 | Outpatient (BNVA) | payer MEDICARE, SELFPAY | PROVIDERS: PCP Internal Medicine; Visit Provider Surgery Vascular Surgery | DX: I83.11 Varicose veins of right lower extremity with inflammation (principal); I83.12 Varicose veins of left lower extremity with inflammation; I89.0 Lymphedema, not elsewhere classified | CPT/HCPCS: 99212 ==

== ENCOUNTER 2025-05-12 14:11 | Outpatient (AMB) | payer MEDICARE, SELFPAY ==
--- NOTE | 2025-05-12 14:14 | MHC.OFFVIS ---
Vital Signs 05/12/25 14:16 Height 5 ft 5 in Weight 284 lb BMI 47.3 BP 191/94 H Blood Pressure Location Lt radial Position Sitting Respiration 16 Pulse 90 Pulse Source Pulse Oximeter Pulse Oximetry (%) 93 Oxygen Delivery Method Room Air Intake Visit Reasons: BILATERAL DIAGNOSTIC L3, L4, DRL5 MBB Intake Note: Blood pressure is high patient state have been off her medication for few weeks. She called her PCP and requested a refill. Slotter Operator Required: No Accompanied by: Life Partner Allergies mold (MOLD) Allergy (Intermediate, Verified 05/12/25 14:19) COUGHING, SINUS CONGESTION Penicillins (PENICILLINS) Allergy (Intermediate, Verified 05/12/25 14:19) REVERSE REACTION MAKES PT FEEL WORSE HPI Comments Details: The patient is an 85-year-old female presenting with chronic lower back pain. The pain is exacerbated by activities such as bending, lifting, and prolonged sitting, and is localized to the middle of the lower back. The patient reports that bending forward worsens the pain, and she attempts to use her knees to bend instead of bending from the waist. She underwent bilateral L3-L4 DR L5 medial branch blocks one-week ago with no improvement in her pain. The patient also reports lymphedema, with the left leg being significantly larger than the right, although the right leg is considered worse due to narrower veins. She is awaiting insurance approval for a device to help manage the lymphedema. - Onset and Timing: Chronic pain exacerbated by activities such as bending, lifting, and prolonged sitting. - Quality and Character: Localized to the middle of the lower back, worsened by bending forward. - Exacerbating Factors: Bending, lifting, prolonged sitting. - Relieving Factors: Attempts to use knees to bend instead of bending from the waist. - Affect: No specific impact on mood or psychological wellbeing discussed. - Analgesia: No current pain medications or goal pain levels discussed. - Adverse Effects: No side effects from pain medications discussed. - Activities of Daily Living: Pain interferes with activities such as bending, lifting, and prolonged sitting. - Aberrant Drug Related Behaviors: No signs of medication abuse or misuse discussed. [facility], LAT[facility] Medical History Right heart failure Chronic respiratory failure with hypoxia and hypercapnia Obstructive sleep apnea CAD (coronary artery disease) PVC (premature ventricular contraction) Morbid obesity Dyslipidemia Type 2 diabetes mellitus Lymphedema Hypertension COPD (chronic obstructive pulmonary disease) Arthritis Surgical History History of hysterectomy History of knee replacement Family History Mother Coronary artery disease Social History Household Members: Significant Other Housing: Apartment Do you presently have visiting nurse or other home services: No Alcohol intake: never Patient Tobacco Use Status: Never used Tobacco e-Cigarette/Vaping Use: Never Used Second Hand Smoke Exposure: No Advance Directives Date on File: 05/11/22 service: No Current occupational status: retired Cognitive needs: Yes (cane) Hearing needs: Yes (right ear hearing aid) Vision needs: No Review of Systems Const Details: - Musculoskeletal: Reports chronic lower back pain exacerbated by bending, lifting, and prolonged sitting. - Vascular: Reports lymphedema with significant size difference between legs, left larger than right. Physical Exam Vital Signs: Last Vital Signs Pulse 90 05/12/25 14:16 Resp 16 05/12/25 14:16 BP 191/94 H 05/12/25 14:16 Pulse Ox 93 05/12/25 14:16 Oxygen Delivery Method Room Air 05/12/25 14:16 BMI result Body Mass Index 47.3 General: awake, alert, oriented. Answers questions appropriately. Fully engaged in examination. Skin: warm, dry, intact HEENT: Normocephalic. Hearing intact. Cardiac: External chest normal in appearance. Respiratory: No cough, audible wheezing or stridor. Abdomen: without gross distension. MS: Lymphedema BLE, left greater than right. Able to transition from sit to stand unassisted. Ambulates with bilaterally normal heel strike and toe off Tenderness over midline lumbar vertebrae and lumbar paraspinal muscles Nontender over bilateral PSIS SLR negative bilaterally Facet loading positive bilaterally Neurological: Oriented to person, place, time and situation. Thought process intact. Ambulates with the use of a cane Psychiatric: Appropriate mood and affect. Good judgment and insight. Results Reviewed Results Reviewed: 02/11/25 MRI LS FINDINGS: Last rib-bearing vertebra labeled T12. No bone marrow STIR signal abnormality. Marginal osteophyte formation and disc desiccation from T11-12 to L1 to from L4-5 to L5-S1. Grade 1 retrolisthesis, T12-L1, L1 to levels. Grade 1 anterolisthesis L3-4. Conus medullaris ends at intervertebral disc T12-L1 with normal signal. T12-L1: Broad-based disc bulging. Facet joint hypertrophy. No compression upon neural elements. L1-2: Broad-based disc bulging. Facet joint and ligamentum flavum hypertrophy. Reduced AP diameter of the thecal sac and the neural foramina. L2-3: Broad-based disc bulging. Facet joint and ligamentum flavum hypertrophy. Central spinal canal and bilateral neuroforamina stenosis, right greater than the left side likely encroaching the neural elements. L3-4: Broad-based disc bulging. Facet joint and ligamentum flavum hypertrophy. Reduced AP diameter of the thecal sac and the neural foramina. L4-5: [Disc bulging. Facet joint and ligamentum flavum hypertrophy. Reduced AP diameter of the thecal sac and neuroforamina narrowing encroaching the neural elements. L5-S1: Broad-based disc bulging. Facet joint hypertrophy. Bilateral neuroforamina stenosis encroaching the exiting nerve roots. No prevertebral compartment hematoma, mass or fluid collection. Multifocal different sizes round hyperintense T2 cystic lesions in the left kidney. Fatty atrophy of the lower lumbar muscles from L4 to sacrum. IMPRESSION: Multilevel thoracolumbar spondylosis resulting in grade 1 anterolisthesis L3-4 and grade 1 retrolisthesis L1 to and to a lesser extent T12-L1 causing central spinal canal and bilateral neuroforamina stenosis at L2-3, L4-5 and to a lesser extent L5-S1 encroaching the exiting nerve roots. Assessment & Plan Assessment & Plan (1) Lymphedema: Code(s): I89.0 - Lymphedema, not elsewhere classified Category: Medical (2) Lumbar stenosis: Code(s): M48.061 - Spinal stenosis, lumbar region without neurogenic claudication Category: Medical Qualifiers: Neurogenic claudication status: unspecified Qualified Code(s): M48.061 - Spinal stenosis, lumbar region without neurogenic claudication (3) Lumbar spondylosis: Code(s): M47.816 - Spondylosis without myelopathy or radiculopathy, lumbar region Category: Medical (4) Chronic pain syndrome: Code(s): G89.4 - Chronic pain syndrome Category: Medical (5) Vertebrogenic low back pain: Code(s): M54.51 - Vertebrogenic low back pain Category: Medical Plan The plan includes submitting to the insurance company for approval of the Intercept procedure at the L4-5-S1 levels, where MODIC changes are present on the MRI. Additionally, the patient is awaiting insurance approval for a device to manage lymphedema, which involves a compression device to reduce fluid accumulation in the legs. I discussed with the patient the presence of MODIC changes and degeneration in the spine as seen on the MRI, and the option of the Intercept procedure to address the chronic lower back pain. The procedure involves ablation of the basivertebral nerves at the L4-5-S1 levels, and I explained that these nerves do not regenerate, which should prevent the return of pain. We also discussed the management of lymphedema with a compression device, pending insurance approval. Patient was informed and verbally consented to the use of an ambient scribe for clinic note documentation during this visit. Patient Instructions: - Wait for insurance approval for the Intercept procedure and the lymphedema compression device. - Follow up with the clinic once insurance approval is obtained. - Continue to avoid activities that exacerbate back pain, such as bending and lifting. Coding Level of Care Code Est Pt Level 3 (36895) Complex EM visit Add On G2211 Diagnoses Lymphedema I89.0 Spinal stenosis of lumbar region, unspecified whether neurogenic claudication present M48.061 Neurogenic claudication status: unspecified Lumbar spondylosis M47.816 Chronic pain syndrome G89.4 Vertebrogenic low back pain M54.51
[2025-05-12 14:16] VITALS: BP 191/94; PULSE 90; RESP 16; O2SAT 93; BMI 47.3
== END 2025-05-12 15:01 | disposition home or self-care (01) ==
PROVIDERS: PCP Internal Medicine; Visit Provider Registered Nurse Emergency
DX: I89.0 Lymphedema, not elsewhere classified (principal); M48.061 Spinal stenosis, lumbar region without neurogenic claudication; M47.816 Spondylosis without myelopathy or radiculopathy, lumbar region; G89.4 Chronic pain syndrome; M54.51 Vertebrogenic low back pain
CPT/HCPCS: 99213; G2211

== ENCOUNTER → 2025-05-12 14:11 | Outpatient (BNVA) | payer MEDICARE, SELFPAY | PROVIDERS: PCP Internal Medicine; Visit Provider Registered Nurse Emergency | DX: M48.061 Spinal stenosis, lumbar region without neurogenic claudication (principal); M47.816 Spondylosis without myelopathy or radiculopathy, lumbar region; M54.51 Vertebrogenic low back pain; I89.0 Lymphedema, not elsewhere classified; G89.4 Chronic pain syndrome | CPT/HCPCS: 99212 ==

== ENCOUNTER 2025-06-21 10:05 | Outpatient (REF) | payer MEDICARE, SELFPAY ==
--- OUTSIDE RECORDS SUMMARY | 2025-06-21 10:58 | XMS_ITS | Clinical Summary ---
Author Organization [facility] Address [address] [place] [address] Phone Care Team Providers Care Bed Machine Operator Name Role Phone Jovanny Carter MD Primary Care Provider Allergies Active Allergy Reactions Criticality Noted Date Comments Pollens Extract 07/13/2020 Medications furosemide (LASIX) 40 MG tablet Take 40 mg by mouth daily. Active omeprazole (PRILOSEC) 20 MG capsule Take 20 mg by mouth daily. Active gemfibrozil (LOPID) 600 MG tablet Take 600 mg by mouth. Active fexofenadine (RUEL) 180 MG tablet Take 180 mg by mouth. Active pravastatin (PRAVACHOL) 40 MG tablet Take 40 mg by mouth. Active allopurinol (ZYLOPRIM) 100 MG tablet Take 100 mg by mouth daily. 0 Active ONETOUCH VERIO Strp strips USE 1 STRIP ONCE A DAY VIA METER 0 Active clotrimazole-be tamethasone (LOTRISONE) cream APPLY SPARINGLY TO AFFECTED AREA TWICE A DAY NEEDED 0 Active TIADYLT ER 360 mg 24 hr capsule Take 360 mg by mouth daily. 0 Active metFORMIN (GLUCOPHAGE-XR) 500 MG 24 hr tablet Take 500 mg by mouth daily. 0 Active metOLazone (ZAROXOLYN) 2.5 MG tablet TAKE 1 TABLET BY MOUTH EVERY OTHER DAY 0 Active meloxicam (MOBIC) 15 MG tablet Take 15 mg by mouth daily. 1 Active guaifenesin (MUCINEX ORAL) Take by mouth. Active lidocaine (LIDODERM) 5 % Place 1 patch onto the skin daily. Remove & Discard patch within 12 hours or as directed by 30 patch 2 Active Active Problems Problem Noted Date Diagnosed Date Cellulitis and abscess of leg 08/24/2018 Assessment & Plan (08/26/2018 8:30 AM EDT): - chronic lymphedema and diabetes increase risk - definitely is not worse and there is slow improvement with cefazolin, will not broaden abx - involves most of right leg and medial thigh and posterior thigh still with bright erythema - keep IV abx - reassuring no fevers and leukocytosis has improved - encouraged elevate leg as much as possible Diabetes type 2, controlled 08/24/2018 Assessment & Plan (08/25/2018 8:11 AM EDT): - blood sugars controlled Lymphedema 08/24/2018 Simple chronic bronchitis 08/24/2018 Assessment & Plan (08/27/2018 4:57 PM EDT): She was able to expectorate a large amount of sputum today and feels as if her breathing is easier. She continues to refuse any oxygen. No wheezing appreciate - cont duoneb 4x daily, add scheduled guaifenesin - desat this morning, refusing O2 however - may have sleep apnea, may benefit from sleep study as outpt Essential hypertension 08/24/2018 Assessment & Plan (08/27/2018 4:59 PM EDT): On diltiazem, furosemide and amlodipine as an outpatient. Medications confirmed by her PCP. -blood pressure remains acceptable, if trends higher will likely add PATTI -Amlodipine on hold Social History Tobacco Use Types Packs/Day Years [...] Orientation Straight 08/24/2018 8: 24 AM EDT Last Filed Vital Signs Vital Sign Reading Time Taken Comments Blood Pressure 167/94 06/01/2024 2:40 PM EDT Pulse 91 02/21/2022 3:28 PM EDT Temperature 36.5 C (97.7 F) 02/21/2022 3:28 PM EDT Respiratory Rate 20 02/21/2022 3:28 PM EDT Oxygen Saturation 94% 06/01/2024 2:40 PM EDT Inhaled Oxygen Concentration - - Weight 130.6 kg (288 lb) 02/21/2022 3:28 PM EDT Height 163.8 cm (5' 4.5 ) 05/08/2021 5:54 PM EDT Body Mass Index 48.67 05/08/2021 5:54 PM EDT Plan of Treatment Health Maintenance Due Date Last Done Comments Adult Td,Tdap Booster 1942 HEMOGLOBIN A1C 1942 DEPRESSION SCREENING 1954 ZOSTER VACCINES (1 of 2) 1992 OSTEOPOROSIS SCREENING INITIAL (ONE-TIME) 2007 RSV VACCINE (1 - 1-dose 75+ series) 2017 PNEUMOCOCCAL VACCINES (50+ years) (2 of 2 - PPSV23) 02/11/2018 12/17/2017 DIABETIC EYE EXAM 08/24/2018 URINE MICROALBUMIN/CREATININE RATIO 08/24/2018 CREATININE LEVEL 08/27/2019 08/27/2018, , 08/25/2018, Additional history exists POTASSIUM LEVEL 08/27/2019 08/27/2018, 08/05, 08/25/2018, Additional history exists COVID-19 VACCINE (2 - season) 2024 08/02/2021 BLOOD PRESSURE 12/02/2024 06/01/2024 HEPATITIS A VACCINES Aged Out No long er eligible based on patient's age to complete this topic HIB VACCINES Aged Out No longer eligi ble based on patient's age to complete this topic MENINGOCOCCAL VACCINES (ACWY) Aged Out No longer eligible based on patient's age to complete this topic MENINGOCOCCAL VACCINES (B) Aged Out N o longer eligible based on patient's age to complete this topic Medical Devices Not on file Procedures Procedure Name Priority Date/Time Associated Diagnosis Comments BASIC METABOLIC PANEL Routine 08/27/2018 4:27 AM EDT from Last 3 Months or Most Recently Relevant to Health Maintenance Results * (ABNORMAL) Basic metabolic panel (08/27/2018 4:27 AM EDT) SODIUM 138 133 - 146 mmol/L [facility] CHLORIDE 97 96 - 108 mmol/L [facility] POTASSIUM 3.6 3.3 - 5.1 mmol/L [facility] CO2 30 21 - 35 mmol/L [facility] BUN 8 6 - 19 mg/dL [facility] CREATININE 0.60 0.5 - 1.5 mg/dL [facility] GLUCOSE 109(H) 70 - 99 mg/dL [facility] CALCIUM 8.8 8.4 - 10.3 mg/dL [facility] EGFR 89 >59 mL/min/1.7 3m2 [facility] Comment:If patient is black, multiply result by 1.159. Estimated glomerular filtration rate calculated using the CKD-EPI equation. ANION GAP 15 10 - 20 mmol/L [facility] Blood 08/27/2018 4:27 AM EDT 08/27/2018 5:30 AM EDT us Alejandra Teran MD LAB BLOOD ORDERABLES Final Result [facility] [address] [place], [place] [id number] from Last 3 Months or Most Recently Relevant to Health Maintenance Insurance MEDICARE PART A & B Libratone CROSS MEDEX SUPPLEMENT MEDICARE PART A & B Libratone CROSS MEDEX SUPPLEMENT MEDICARE PART A & B Advanova MEDEX SUPPLEMENT MEDICARE PART A & B Advanova MEDEX SUPPLEMENT MEDICARE PART A & B [facility] MEDEX SUPPLEMENT MEDICARE PART A & B BLUE CROSS MEDEX SUPPLEMENT MEDICARE PART A & B BLUE CROSS MEDEX SUPPLEMENT MEDICARE PART A & B Libratone CROSS MEDEX SUPPLEMENT MEDICARE PART A & B Libratone CROSS MEDEX SUPPLEMENT Advance Directives For more information, please contact: [phone] (9AM - 5PM [facility], Saturday-Saturday) Documents on File Type Date Recorded Patient Tube Room Cashier Expl latrice Healthcare Proxy 08/29/2018 1:15 PM * Full Code (Confirmed) (Latest Code Status on File) Date Activated Date Inactivated Comments 08/24/2018 3:36 PM 08/28/2018 4:21 PM Question Answer Comments Code Status Confirmed With: Patient Care Teams Bed Machine Operator Relationship Specialty Start Date End Date Jovanny Carter MD [address] [place] [address] [place] [address] PCP - General Internal Medicine 08/24/18 Additional Source Comments The information contained in this document represents components of the legal health record. It is not the complete legal health record.[facility]
[2025-06-21 13:35] LABS: Alanine Aminotransferase 9 U/L (0-31); Albumin Level 4.0 g/dL (3.5-5.0); Alkaline Phosphatase 117 U/L (39-117); Anion Gap 14 (12-20); Aspartate Amino Transferase 19 U/L (5-31); Blood Urea Nitrogen 21 mg/dL (9-16); Calcium 9.2 mg/dL (8.4-10.2); Carbon Dioxide 30 mmol/L (22-29); Chloride 102 mmol/L (96-108); Cholesterol 162 mg/dL (<200); Estimated Glomerular Filt Rate 56; HDL Cholesterol 38 mg/dL (>40); Potassium 4.6 mmol/L (3.3-5.1); Sodium 141 mmol/L (135-145); Total Protein 7.0 g/dL (6.5-8.0); Triglycerides 245 mg/dL (<150)
[2025-06-21 13:40] LABS: Hemoglobin A1C 153.3318 umol/L; Total Hemoglobin (HGBA1C) 3643.8969 umol/L
== END 2025-06-21 10:06 | disposition home or self-care (01) ==
LOC: HO.10HDL 10:05
PROVIDERS: Visit Provider Internal Medicine
DX: I10 Essential (primary) hypertension (principal); E11.9 Type 2 diabetes mellitus without complications; M48.061 Spinal stenosis, lumbar region without neurogenic claudication; I25.10 Atherosclerotic heart disease of native coronary artery without angina pectoris
CPT/HCPCS: 36415; 80053; 80061; 83036

== ENCOUNTER 2025-07-01 14:28 | Outpatient (AMB) | payer MEDICARE, SELFPAY ==
--- OUTSIDE RECORDS SUMMARY | 2021-05-08 18:06 | XMS_ITS | Encounter Summary ---
Author Organization [facility] Address [address] [place] [phone] Phone Care Team Providers Care Geology Teacher Name Role Phone Jovanny Carter MD Primary Care Provider Encounter Details Date Type Department Care Team (Late st Contact Info) Description 05/08/2021 6:06 PM EDT Hospital Encounter [facility] [address] [place] [phone] Radha Taylor FNP [address] [place] [phone] [email or web address] Social History Tobacco Use Types Packs/Day [...] IMPRESSION: No fracture or dislocation. Radha Taylor LINING PRESSER IMG XR UPPER EXTREMITY Luz l Result documented in this encounter Visit Diagnoses Not on filedocumented in this encounter Care Teams Geology Teacher Relationship Specialty Start Date End Date Jovanny Carter MD [address] [place] [address] [place] [phone] PCP - General Internal Medicine 08/24/18 documented as of this encounter Additional Source Comments The information contained in this document represents components of the legal health record. It is not the complete legal health record.[facility]
--- OUTSIDE RECORDS SUMMARY | 2022-02-21 15:55 | XMS_ITS | Encounter Summary ---
Author Organization [facility] Address [address] [place] [phone] Phone Care Team Providers Care Administrative Fellow Name Role Phone Jovanny Carter MD Primary Care Provider Encounter Details Date Type Department Care Team (Late st Contact Info) Description 02/21/2022 3:55 PM EDT Hospital Encounter [facility] [address] [place] [phone] Clemente Alejandra PA [address] [place] [phone] [email or web address] g Social History Tobacco Use Types Packs/Day [...] on filedocumented in this encounter Care Teams Administrative Fellow Relationship Specialty Start Date End Date Jovanny Carter MD [address] [place] [address] [place] [address] PCP - General Internal Medicine 08/24/18 documented as of this encounter Additional Source Comments The information contained in this document represents components of the legal health record. It is not the complete legal health record.[facility]
[2025-07-01 14:04] VITALS: BP 150/80; PULSE 78; TEMP 36.6; O2SAT 95; BMI 48.4
--- NOTE | 2025-07-01 14:04 | A.OFFPC_ITS ---
Vital Signs 07/01/25 14:04 Height 5 ft 5 in Weight 291 lb BMI 48.4 BP 150/80 H Blood Pressure Location Lt brachial Position Sitting Pulse 78 Pulse Source Pulse Oximeter Temp 98 F Temp Source Temporal Artery Scan Pulse Oximetry (%) 95 Oxygen Delivery Method Room Air Intake Visit Reasons: 3 mo. f/u Clinical Documentation Manager Required: No Accompanied by: Self / Same As Patient Allergies mold (MOLD) Allergy (Intermediate, Verified 07/01/25 14:05) COUGHING, SINUS CONGESTION Penicillins (PENICILLINS) Allergy (Intermediate, Verified 07/01/25 14:05) REVERSE REACTION MAKES PT FEEL WORSE Tobacco use date assessed: 07/01/25 Fall risk assessment: No Falls in past year Last assessed Fall Risk: 07/01/25 Dental Screening Dental Screen Date: 07/01/25 Did you have a dental visit in the last 12 months?: Yes Did you have a dental problem in the last 6 months where you did not have access to dental care?: No HPI HPI Comments History of Present Illness Details 84 y/o female with a past medical histor y of diabetes, CAD, CHF, htn, hld, bilateral knee replacement, lumbar DDD, presenting for follow up DM: On metformin 500mg daily. A1C 6.0% from 5.9%. Eye exam UTD. Fasting blood sugar log mostly 100-150 but has been having a few readings in the 60s and 70s and she feels dizzy, weak. CV: On ASA, bumex 3mg BID (increased from 2mg twice daily), diltiazem, furosemide, gemfibrozil, metoprolol, pravastatin. Follows with cardiology at [facility]. Patient lost her son to cancer two weeks ago-she is distraught her blood pressure is high. MSK: Low back pain, bilateral knee pain s/p TKR b/l. Upcoming appt pain management. On gabapentin 300mg three times daily. ROS see HPI PHYSICAL EXAM: GENERAL: Alert and oriented x 3. NAD EYES: EOMI. Anicteric. HENT: Moist mucous membranes. No scleral icterus. No cervical lymphadenopathy. LUNGS: Clear to auscultation bilaterally. CARDIOVASCULAR: Regular rate and rhythm. No murmur. No JVD. ABDOMEN: Soft, non-tender +bs EXTREMITIES: No edema. Non-tender. SKIN: No rashes or lesions. Warm. NEUROLOGIC: No focal neurological deficits. CN II-XII grossly intact PSYCHIATRIC: Cooperative. Appropriate mood and affect [facility] Medical History Right heart failure Chronic respiratory failure with hypoxia and hypercapnia Obstructive sleep apnea CAD (coronary artery disease) PVC (premature ventricular contraction) Morbid obesity Dyslipidemia Type 2 diabetes mellitus Lymphedema Hypertension COPD (chronic obstructive pulmonary disease) Arthritis Surgical History History of hysterectomy History of knee replacement Family History Mother Coronary artery disease Mother No problems noted. Father No problems noted. Social History Household Members: Significant Other Housing: Apartment Do you presently have visiting nurse or other home services: No Alcohol intake: never Patient Tobacco Use Status: Never used Tobacco e-Cigarette/Vaping Use: Never Used Second Hand Smoke Exposure: No Advance Directives Date on File: 05/11/22 service: No Current occupational status: retired Cognitive needs: Yes (cane) Hearing needs: Yes (right ear hearing aid) Vision needs: No Questionnaire PHQ-9 Over the last 2 weeks, how often have you been bothered by any of the following problems? 1. Little interest or pleasure in doing things: not at all 2. Feeling down, depressed, or hopeless: nearly every day (her son ) 3. Trouble falling or staying asleep, or sleeping too much: nearly every day 4. Feeling tired or having little energy: nearly every day 5. Poor appetite or overeating: not at all 6. Feeling bad about yourself - or that you are a failure or have let yourself or your family down: not at all 7. Trouble concentrating on things, such as reading the newspaper or watching television: not at all 8. Moving or speaking so slowly that other people could have noticed. Or the opposite - being so fidgety or restless that you have been moving around a lot more than usual: not at all 9. Thoughts that you would be better off or of hurting yourself in some way: not at all Total score: 9 Depression Screening Interpretation: Positive Depression Screening Follow-up: Existing condition Depression Screening Done: Yes 36862 - PHQ-9 Billing: Yes Source: Developed by Drs. Davon Barkley, Denton Castle and colleagues, with an educational audelia from [employer]. Thrive Questionnaire Date Thrive assessed: 07/01/25 I am a: Patient Within the past 12 months, did the food you bought not last and you didn't have the money to get more?: Never true Within the past 12 months, did you worry whether your food would run out before you got money to buy more?: Never true Do you have trouble paying for medicines?: No Do you have trouble getting transportation to medical appointments?: No Do you have trouble paying your heating and electricity bill?: No Do you have trouble taking care of your child, family member or friend?: No Do you have trouble with day-to-day activities such as bathing, preparing meals, shopping, managing finances, etc.?: No Are you currently unemployed and looking for a job?: No Are you interested in more education?: No THRIVE Score: 0 AUDIT C Alcohol Use Questionnaire (AUDIT-C) 1. How often do you have a drink containing alcohol?: Never 3. How often do you have six or more drinks on one occasion?: Never Total Score: 0 KEY-7 AMB Questionnaire KEY-7 Date KEY - 7 assessed: 07/01/25 Feeling nervous, anxious, or on edge: 0 = Not at all Not being able to stop or control worryin = Not at all Worrying too much about different things: 0 = Not at all Trouble relaxin = Not at all Being so restless that it is hard to sit still: 0 = Not at all Becoming easily annoyed or irritable: 0 = Not at all Feeling afraid as if something awful might happen: 0 = Not at all Total KEY-7 score (0-4 normal; 5-9 mild; 10-14 moderate; 15-21 severe): 0 Source: Developed by Drs. Davon Barkley, Denton Castle and colleagues, with an educational audelia from [employer]. Physical exam (Primary Care) BMI result Body Mass Index 48.4 Tobacco/Smoking Status: Tobacco use Status Tobacco use date assessed 07/01/25 07/01/25 14:06 Patient Tobacco Use Status Never used Tobacco 07/01/25 14:06 e-Cigarette/Vaping Use Never Used 07/01/25 14:06 PHQ-9: PHQ-9 Score PHQ-9: Total score 0 07/01/25 14:06 Depression Screening Interpretation: Positive Depression Screening Follow-up: Existing condition Thrive Assessment: Date of Thrive Assessment Date Thrive assessed 07/01/25 07/01/25 14:06 Coding Level of Care Code Est Pt Level 4 (91009) Diagnoses Primary hypertension I10 Hypertension type: primary hypertension Coronary artery disease involving [place] coronary artery, unspecified whether angina present, unspecified whether [place] or transplanted heart I25.10 Coronary Disease-Associated Artery/Lesion type: [place] artery [place] vs. transplanted heart: unspecified whether [place] or transplanted heart Associated angina: unspecified whether angina present Type 2 diabetes mellitus with other circulatory complication, without long-term current use of insulin E11.59 Diabetes mellitus buttermaker continuous churn insulin use: without buttermaker continuous churn use Diabetes mellitus complication status: with circulatory complication Diabetes mellitus complication detail: with other circulatory complications Additional Codes PHQ-9 - 02338 - PHQ-9 Billing: Yes ([id number]) Assessment & Plan Assessment & Plan (1) Hypertension: Code(s): I10 - Essential (primary) hypertension Category: Medical Qualifiers: Hypertension type: primary hypertension Qualified Code(s): I10 - Essential (primary) hypertension (2) CAD (coronary artery disease): Comment: Moderate diffuse three-vessel disease with calcified plaque without significant obstructive lesions by coronary CTA in March 2023 Code(s): I25.10 - Atherosclerotic heart disease of [place] coronary artery without angina pectoris Category: Medical Qualifiers: Coronary Disease-Associated Artery/Lesion type: [place] artery [place] vs. transplanted heart: unspecified whether [place] or transplanted heart Asso ciated angina: unspecified whether angina present Qualified Code(s): I25.10 - Atherosclerotic heart disease of [place] coronary artery without angina pectoris (3) Type 2 diabetes mellitus: Code(s): E11.9 - Type 2 diabetes mellitus without complications Category: Medical Qualifiers: Diabetes mellitus penitentiary insulin use: without buttermaker continuous churn use Diabetes mellitus complication status: with circulatory complication Diabetes mellitus complication detail: with other circulatory complications Qualified Code(s): E11.59 - Type 2 diabetes mellitus with other circulatory complications Plan Type 2 diabetes-patient is having some low blood glucose. Will stop metformin for 3 months and see if she if she has less episodes of dizziness, weakness CAD/HTN-Blood pressure is elevated today Labs ordered for 3 months Orders: Orders Comprehensive Met. Panel 3 Months E11.59 - Type 2 diabetes mellitus with other circulatory complications, I25.10 - Atherosclerotic heart disease of [place] coronary artery without angina pectoris Hemoglobin A1c 3 Months E11.59 - Type 2 diabetes mellitus with other circulatory complications, I25.10 - Atherosclerotic heart disease of [place] coronary artery without angina pectoris
--- OUTSIDE RECORDS SUMMARY | 2025-07-01 15:09 | XMS_ITS | Clinical Summary ---
Author Organization [facility] Address [address] [place] [id number] Phone Care Team Providers Care Web Search Evaluator Name Role Phone Jovanny Carter MD Primary [...] EDT) SODIUM 138 133 - 146 mmol/L [facility] CHLORIDE 97 96 - 108 mmol/L [facility] POTASSIUM 3.6 3.3 - 5.1 mmol/L [facility] CO2 30 21 - 35 mmol/L [facility] BUN 8 6 - 19 mg/dL [facility] CREATININE 0.60 0.5 - 1.5 mg/dL [facility] GLUCOSE 109(H) 70 - 99 mg/dL [facility] CALCIUM 8.8 8.4 - 10.3 mg/dL [facility] EGFR 89 >59 mL/min/1.7 3m2 [facility] Comment:If patient is black, multiply result by 1.159. Estimated glomerular filtration rate calculated using the CKD-EPI equation. ANION GAP 15 10 - 20 mmol/L [facility] Blood 08/27/2018 4:27 AM EDT 08/27/2018 5:30 AM EDT us Alejandra Teran MD LAB BLOOD ORDERABLES Final Result [facility] [address], [place] [id number] from Last 3 Months or Most Recently Relevant to Health Maintenance Insurance MEDICARE PART A & B [employer]EX SUPPLEMENT MEDICARE PART A & B [employer] MEDEX SUPPLEMENT MEDICARE PART A & B [employer] MEDEX SUPPLEMENT MEDICARE PART A & B [employer] MEDEX SUPPLEMENT MEDICARE PART A & B [facility] MEDEX SUPPLEMENT MEDICARE PART A & B [employer] MEDEX SUPPLEMENT MEDICARE PART A & B [employer] MEDEX SUPPLEMENT MEDICARE PART A & B [employer] MEDEX SUPPLEMENT MEDICARE PART A & B [employer] MEDEX SUPPLEMENT Advance Directives For more information, please contact: [phone] (9AM - 5PM [facility], Saturday-Saturday) Documents on File Type Date Recorded Patient Application Programmer Analyst Expl [employer] Proxy 08/29/2018 1:15 PM * Full Code (Confirmed) (Latest Code Status on File) Date Activated Date Inactivated Comments 08/24/2018 3:36 PM 08/28/2018 4:21 PM Question Answer Comments Code Status Confirmed With: Patient Care Teams Web Search Evaluator Relationship Specialty Start Date End Date Jovanny Carter MD [address] [place] [address] [place] [address] PCP - General Internal Medicine 08/24/18 Additional Source Comments The information contained in this document represents components of the legal health record. It is not the complete legal health record.[facility]
== END 2025-07-01 15:12 | disposition home or self-care (01) ==
LOC: HO.HMCHD 14:28
PROVIDERS: Visit Provider Internal Medicine
DX: I10 Essential (primary) hypertension (principal); I25.10 Atherosclerotic heart disease of native coronary artery without angina pectoris; E11.59 Type 2 diabetes mellitus with other circulatory complications

== ENCOUNTER → 2025-07-01 14:28 | Outpatient (BNVA) | payer MEDICARE, SELFPAY | PROVIDERS: Visit Provider Internal Medicine | DX: I10 Essential (primary) hypertension (principal); I25.10 Atherosclerotic heart disease of native coronary artery without angina pectoris; E11.59 Type 2 diabetes mellitus with other circulatory complications; Z79.82 Long term (current) use of aspirin; Z79.84 Long term (current) use of oral hypoglycemic drugs; Z79.899 Other long term (current) drug therapy; Z96.653 Presence of artificial knee joint, bilateral; Z13.31 Encounter for screening for depression; Z13.39 Encounter for screening examination for other mental health and behavioral disorders | CPT/HCPCS: 96127; 99212 ==

== ENCOUNTER 2025-07-16 05:44 | Day surgery (SDC) | payer MEDICARE, SELFPAY ==
--- OUTSIDE RECORDS SUMMARY | 2025-06-24 12:04 | XMS_ITS | Clinical Summary ---
Author Organization [facility] Address [address] [place] [address] Phone Care Team Providers Care Phone Banker Name Role Phone Jovanny Carter MD Primary [...] EDT) SODIUM 138 133 - 146 mmol/L [facility] CHLORIDE 97 96 - 108 mmol/L [facility] POTASSIUM 3.6 3.3 - 5.1 mmol/L [facility] CO2 30 21 - 35 mmol/L [facility] BUN 8 6 - 19 mg/dL [facility] CREATININE 0.60 0.5 - 1.5 mg/dL [facility] GLUCOSE 109(H) 70 - 99 mg/dL [facility] CALCIUM 8.8 8.4 - 10.3 mg/dL [facility] EGFR 89 >59 mL/min/1.7 3m2 [facility] Comment:If patient is black, multiply result by 1.159. Estimated glomerular filtration rate calculated using the CKD-EPI equation. ANION GAP 15 10 - 20 mmol/L [facility] Blood 08/27/2018 4:27 AM EDT 08/27/2018 5:30 AM EDT us Alejandra Teran MD LAB BLOOD ORDERABLES Final Result [facility] [address] [place], [place] [id number] from Last 3 Months or Most Recently Relevant to Health Maintenance Insurance MEDICARE PART A & B Hipbone CROSS MEDEX SUPPLEMENT MEDICARE PART A & B Hipbone CROSS MEDEX SUPPLEMENT MEDICARE PART A & B Cupid-Labs MEDEX SUPPLEMENT MEDICARE PART A & B Cupid-Labs MEDEX SUPPLEMENT MEDICARE PART A & B [facility] MEDEX SUPPLEMENT MEDICARE PART A & B BLUE CROSS MEDEX SUPPLEMENT MEDICARE PART A & B BLUE CROSS MEDEX SUPPLEMENT MEDICARE PART A & B Hipbone CROSS MEDEX SUPPLEMENT MEDICARE PART A & B Hipbone CROSS MEDEX SUPPLEMENT Advance Directives For more information, please contact: [phone] (9AM - 5PM [facility], Saturday-Saturday) Documents on File Type Date Recorded Patient Exhibitor Sales Expl latrice Healthcare Proxy 08/29/2018 1:15 PM * Full Code (Confirmed) (Latest Code Status on File) Date Activated Date Inactivated Comments 08/24/2018 3:36 PM 08/28/2018 4:21 PM Question Answer Comments Code Status Confirmed With: Patient Care Teams Phone Banker Relationship Specialty Start Date End Date Jovanny Carter MD [address] [place] [address] [place] [address] PCP - General Internal Medicine 08/24/18 Additional Source Comments The information contained in this document represents components of the legal health record. It is not the complete legal health record.[facility]
[2025-07-14 12:18] VITALS: BMI 47.3
--- NOTE | 2025-07-14 14:03 | HO.ANESPROP2 ---
Documented by User: Meme Stafford NP 07/14/25 14:13 HPI - Anesthesia Eval Consult details Narrative: 85 yr old female for L4,L5, and S1 Basivertebral Nerve Ablation (Intracept RFA) *BMI 48 CAD: Moderate diffuse three-vessel disease with calcified plaque without significant obstructive lesions by coronary CTA in March 2023 Right heart failure: secondary to severe pulmonary parenchymal disease causing pulmonary hypertension and RV dysfunction; on bumex Type 2 DM: A1C 6.0% COPD: supplemental O2 was recommended by pulmonary but pt declined. MAGAN: non compliant with CPAP [facility] Active Problems Active Problems: All Active Problems (Updated 07/01/25 @ 15:00 by Candy Cheng MD) Vertebrogenic low back pain (Acute) Spondylosis of lumbar region without myelopathy or radiculopathy (Acute) Varicose veins of both lower extremities with inflammation (Acute) Chronic pain syndrome (Acute) Lumbar spondylosis (Acute) Type 2 diabetes mellitus (Acute) Lumbago (Acute) Lumbar stenosis (Acute) Low back pain radiating to both legs (Acute) Right knee pain (Acute) COPD exacerbation (Acute) Pneumonia (Acute) Lymphedema (Acute) Dysphagia (Acute) Pleural thickening (Acute) Preprocedural examination (Acute) Abnormal chest xray (Acute) Cough (Acute) Nocturnal hypoxemia (Acute) Requires supplemental oxygen (Acute) Preop pulmonary/respiratory exam (Acute) Obstructive sleep apnea (Acute) Unstable angina (Acute) Abnormal nuclear stress test (Acute) Right heart failure (Acute) Acute respiratory failure with hypoxia (Acute) Back pain (Acute) Pneumonia (Acute) Back pain (Acute) CAD (coronary artery disease) (Acute) Hypertension (Acute) COPD (chronic obstructive pulmonary disease) (Acute) Past Medical History Medical History Right heart failure Chronic respiratory failure with hypoxia and hypercapnia Obstructive sleep apnea CAD (coronary artery disease) PVC (premature ventricular contraction) Morbid obesity Dyslipidemia Type 2 diabetes mellitus Lymphedema Hypertension COPD (chronic obstructive pulmonary disease) Arthritis Family History Family History Mother Coronary artery disease Mother No problems noted. Father No problems noted. Family history of problems with anesthesia: No Surgical History Surgical History History of hysterectomy History of knee replacement Social History Social History Household Members: Significant Other Housing: Apartment Do you presently have visiting nurse or other home services: No Alcohol intake: never Patient Tobacco Use Status: Never used Tobacco e-Cigarette/Vaping Use: Never Used Second Hand Smoke Exposure: No Use of substances other than those prescribed or required for medical reasons: No Have you been hit, kicked, punched, or otherwise hurt by someone within the past year? If so, by whom?: No Are you DNR?: No Advance Directives: No Advance Directives Information Provided: Yes Advance Directives Date on File: 05/11/22 Patient : No Poor oral hygiene: Yes service: No Current occupational status: retired Cognitive needs: Yes (cane) Hearing needs: Yes (right ear hearing aid) Vision needs: No Meds Allergies Allergy/AdvReac Type Severity Reaction Status Date / Time mold (MOLD) Allergy Intermediate COUGHING, Verified 07/16/25 06:16 SINUS CONGESTION Penicillins (PENICILLINS) Allergy Intermediate REVERSE Verified 07/16/25 06:16 REACTION MAKES PT FEEL WORSE Home Medications ?Medication ?Instructions ?Recorded ?Confirmed ?Last Taken ?Type gemfibrozil 600 mg tablet 600 mg PO DAILY 09/05/21 07/16/25 07/16/25 History pravastatin 40 mg tablet 40 mg PO DAILY 09/05/21 07/16/25 05/10/22 History metformin 500 mg tablet,extended 500 mg PO DAILY 07/10/23 07/16/25 Unknown History release 24 hr glucosamine sulfate 500 mg tablet 500 mg PO DAILY 06/21/24 07/16/25 Unknown History (Glucosamine) aspirin 81 mg tablet,delayed 81 mg PO DAILY 01/05/25 07/16/25 06/04/25 History release metoprolol tartrate 25 mg tablet 25 mg PO DAILY 01/05/25 07/16/25 07/16/25 History Exam Height,Weight and Vital Signs: Height 5 ft 5 in Weight 128.82 kg Pertinent Lab Results Pertinent Lab Results: Laboratory Tests 11/22/24 06/21/25 16:30 10:10 WBC 11.3 H RBC 4.72 Hgb 15.2 Hct 45.5 Plt Count 192 Sodium 141 Potassium 4.6 BUN 21 H Creatinine 0.95 Narrative Narrative: Echo 2023 Conclusions: - 1. Low normal LV ejection fraction 50-55% with moderate LVH with elevated filling pressures 2. Mildly dilated left atrium 3. Mildly elevated right ventricular systolic pressure mildly elevated right atrial pressures 4. Mildly dilated ascending aorta 3.9 cm 5. Mild aortic regurgitation 6. No gross pericardial effusion EKG 04/2025 sinus tachycardia with PVCs rate 104 Assessment and Plan Final Anesthetic Review Family History of Problems with Anesthesia: No Documented by User: Arsen Manley MD 07/16/25 07:25 [facility] Past Medical History Medical History Right heart failure Chronic respiratory failure with hypoxia and hypercapnia Obstructive sleep apnea CAD (coronary artery disease) PVC (premature ventricular contraction) Morbid obesity Dyslipidemia Type 2 diabetes mellitus Lymphedema Hypertension COPD (chronic obstructive pulmonary disease) Arthritis Functional capacity: independent ambulation Family History Family History Mother Coronary artery disease Mother No problems noted. Father No problems noted. Surgical History Surgical History History of hysterectomy History of knee replacement History of Problems with Anesthesia: No Social History Social History Household Members: Significant Other Housing: Apartment Do you presently have visiting nurse or other home services: No Alcohol intake: never Patient Tobacco Use Status: Never used Tobacco e-Cigarette/Vaping Use: Never Used Second Hand Smoke Exposure: No Use of substances other than those prescribed or required for medical reasons: No Have you been hit, kicked, punched, or otherwise hurt by someone within the past year? If so, by whom?: No Are you DNR?: No Advance Directives: No Advance Directives Information Provided: Yes Advance Directives Date on File: 05/11/22 Patient : No Poor oral hygiene: Yes service: No Current occupational status: retired Cognitive needs: Yes (cane) Hearing needs: Yes (right ear hearing aid) Vision needs: No Meds Allergies Allergy/AdvReac Type Severity Reaction Status Date / Time mold (MOLD) Allergy Intermediate COUGHING, Verified 07/16/25 06:16 SINUS CONGESTION Penicillins (PENICILLINS) Allergy Intermediate REVERSE Verified 07/16/25 06:16 REACTION MAKES PT FEEL WORSE Home Medications ?Medication ?Instructions ?Recorded ?Confirmed ?Last Taken ?Type gemfibrozil 600 mg tablet 600 mg PO DAILY 09/05/21 07/16/25 07/16/25 History pravastatin 40 mg tablet 40 mg PO DAILY 09/05/21 07/16/25 05/10/22 History metformin 500 mg tablet,extended 500 mg PO DAILY 07/10/23 07/16/25 Unknown History release 24 hr glucosamine sulfate 500 mg tablet 500 mg PO DAILY 06/21/24 07/16/25 Unknown History (Glucosamine) aspirin 81 mg tablet,delayed 81 mg PO DAILY 01/05/25 07/16/25 06/04/25 History release metoprolol tartrate 25 mg tablet 25 mg PO DAILY 01/05/25 07/16/25 07/16/25 History Exam Exam Date and Time: 07/16/2025 Airway Mallampati Class: III TM Dist: >3cm Neck ROM: Full Denture: Upper (no teeth upprt jaw) Loose/Missing/Broken Teeth: Yes (many missing teeth lower jaw) Heart: rrr Lungs: cta Other: normal Assessment and Plan Assessment Anesthesia Assessment: Anesthesia Plan Discussed and Chart Reviewed Final Anesthetic Review History of Problems with Anesthesia: No NPO: Yes ASA Class: IV Final Preanesthetic Review: No Changes in Pt Med Stat, Meds/Allgs Chart Reviewed, Consent Obtained/Reviewed and Anes Risks/Benef Reviewed Patient Risk: Intermediate Procedure Risk: Low Anesthetic Plan Anesthetic Plan: GA Disposition: Standard PACU
[2025-07-16] VITALS (8 sets, daily range): BP systolic 139–184; BP diastolic 62–78; PULSE 70–82; RESP 18–20; TEMP 36.1–36.7; O2SAT 89–96; BMI 48.4
--- NOTE | ~2025-07-16 | FL_ITS ---
EXAMINATION: FL GUIDANCE ONLY HISTORY: L4,L5, and S1 Basivertebral Nerve Ablation COMPARISON: None available. TECHNIQUE: Fluoroscopy time: 3 minutes, 9.9 seconds. Cumulative Dose: 165.886 mGy. DAP: 49.48 mGym2 Images: 18. FINDINGS: Fluoroscopic spot films of the spine demonstrate placement of probes within the sacrum, L5, and L4 vertebral bodies. FL/FL guidance in OR IMPRESSION: Fluoroscopy during procedure. Please see procedure report for additional information. Electronically signed by: Davon Zacarias MD 07/16/2025 10:48 AM EDT
[2025-07-16 06:57] LABS: Glucose, Whole Blood 113 mg/dL (60-115)
[2025-07-16] MEDS: Lactated Ringers 1,000 ML 50 ML IVCONT (07:01)
--- NOTE | 2025-07-16 07:12 | MHC.SHP ---
Pre-Procedural Eval Section A - 24 Hr Update-Section A only Date of Service: 07/16/25 The patient is an INPATIENT: No Changes since office visit: Yes Patient answered all questions The patient has been examined within 24 hours of the surgical procedure. The History & Physical has been completed within 30 days and I have reviewed it.: No Section B - Complete if H&P > 30 days Chief Complaint: Spondylosis without myelopathy/radiculopathy,pain Details of Present Illness: Vertebra genic pain syndrome Relevant Family History (Specify if Yes): No Relevant Social History: None Present Medications: see Short Stay Collaborative assessment Medical History: Significant History (Morbid obesity, disc degeneration, spondylosis lumbar,) History of Previous Operations: No relevant previous surgery Allergies: Allergies Allergy/AdvReac Type Severity Reaction Status Date / Time mold (MOLD) Allergy Intermediate COUGHING, Verified 07/16/25 06:16 SINUS CONGESTION Penicillins (PENICILLINS) Allergy Intermediate REVERSE Verified 07/16/25 06:16 REACTION MAKES PT FEEL WORSE Review of Systems Sugical H&P ROS: Negative: Cardiovascular, Neurological, Psychiatric, Hem-Onc, Allergic/Immunologic, Gastrointestinal, Genitourinary, Integumentary and Eyes/Ears/Nose/Throat and Yes, Specify: Constitution (Morbid obesity), Respiratory (Obstructive sleep apnea, COPD.), Musculoskeletal (Spinal stenosis, vertebra genic low back pain, spondylosis lumbar) and Endocrine (Diabetes) Exam Surgical H&P Exam: Normal: HEENT, Normal: Heart, Normal: Lungs, Normal: Extremities, Normal: Abdomen, Normal: Skin and Normal: Neurological Plan Diagnosis/Plan: Unchanged I have reviewed the history and physical and performed a pertinent physical examination on my patient. No changes have occurred unless specified. Time Spent With Patient Time: Total time managing care of this patient today ___5_ minutes.
[2025-07-16 08:31] LABS: MRSA Nasal PCR NEGATIVE (Negative); SA Nasal PCR NEGATIVE (Negative)
--- NOTE | 2025-07-16 10:19 | P.BOP_ITS ---
Brief Operative Note Date of Service: 07/16/25 Pre-op diagnosis: Vertebra genic low back pain Post-op diagnosis: same Procedure: Basivertebral nerves radiofrequency ablation L4, L5, S1. Implants: None Surgeon: Kev Johnson MD Anesthesia: GETA Was an Decorator Mannequin used for this Procedure?: No Estimated blood loss (mL): 8 Pathology: none sent Condition: stable Disposition: PACU
--- NOTE | 2025-07-16 10:24 | P.OP_ITS ---
Operative Note Operative Note Date of Service: 07/16/25 Narrative: Basivertebral nerve (BVN) ablation? Intracept Procedure L4-5 and S1. L5, L4 and L3. Informed consent was explained, risks and benefits were explained to the patient as well as alternatives. Risks delineated as risks of bleeding, infection, peripheral nerve damage, spinal cord damage, headache, epidural hematoma and other unspecified complications. Procedure Time Out: Patient ID confirmed, correct procedure to be performed, correct site and/or side for procedure , need for antibiotic administration, need for DVT prophylaxis, risk of fire.? The patient received cefazolin 2 g intravenously 25 minutes before onset of the procedure as well as [id number] mg intravenously push. The entire back was sterilely prepped with ChloraPrep twice and draped with sterile self adhesive utility towels and covered with full body drape.? Two sterilely draped C-arms were positioned in fixed anterior posterior and lateral positions alongside the patient's torso.? Sterilely draped C-arm was moved to visualize the target at the superolateral aspect of S1 vertebral body on the right C-arm was rotated to sq of the superior endplate at S1 and positioned in Swenson positioned. Superior lateral right S1 pedicle was identified and the skin and try point was identified and infiltrated with mixture of 2% lidocaine and ropivacaine 0.5% one-to-one using 25 gauge 1- 1/2 inch needle. 22 gauge 5 in spinal needle was used to anesthetize the tract to the pedicle and periosteum and confirm the introducer cannula trajectory. A skin incision was made with 11 blade scalpel 5 mm. The introducer cannula with preston tip was inserted through the skin subcutaneous tissue and paraspinal muscles until bony contact was made. The position was checked in the AP and lateral plane. Using mallet the trocar was then advanced through the pedicle to the posterior aspect of vertebral body of S1 using a combination of AP and lateral views intermittently to ensure appropriate traversing of the pedicle and no breaching of the pedicle medial laterally or inferiorly. Once the trocar was in the posterior aspect of L5 vertebral body introducer cannula with steep bevel reach the vertebral body passing through the right pedicle the trocar was removed from the cannula and the curved cannula assembly with the knitting all J stylette was inserted. This pinwheel was rotated counter-clockwise permitting excursion of the J stylet. The curved cannula assembly than was advanced using a mallet in 1-2 mm increments. The J stylette was observed to traverse the vertebral body in AP and lateral views. Target was reached when tip of the stylette was 45% anterior to the posterior wall of the S1 in the lateral view and midway between the superior and inferior endplates and it across the midline of the S1 spinous process in the AP view. The stylette was then removed. The bipolar radiofrequency RF probe was inserted into the introducer cannula in its ablation positioned. This pain we will was rotated clockwise to retract the PE EK sleeve to expose the proximal electrode on the radiofrequency probe. The BVN was then ablated using the standard algorithm for 15 minutes. Sterilely draped C-arm was moved to visualize the target at the superolateral aspect of the L5 vertebral body. The C-arm was rotated to square off the superior endplate at L5 and rotated left to obtain an oblique view. The superolateral right L5 pedicle was identified, and the skin entry point identified and infiltrated with mixture of 2% lidocaine with ropivacaine 0.5% one to one using a 25- gauge 1-1/2 inch needle. A 22-gauge 5-inch spinal needle was used to anesthetize the track to the pedicle and periosteum and confirm the introducer cannula trajectory. A skin incision was made with 11 blade scalpel 5 mm. The introducer cannula with bevel tip was then introduced through the skin, subcutaneous tissue and paraspinal muscle until bony contact was made. The position was checked in the AP and lateral plane. Using a mallet, the trocar was then advanced through the pedicle to the posterior aspect of the vertebral body using a combination of AP and lateral views to ensure appropriate traversing of the pedicle and no breaching of the pedicle medially or inferiorly. Once the trocar was in the posterior aspect of the L5 vertebral body then introducer cannula with tip bevel reached the vertebral body passing through the left pedicle, the trocar was removed from the cannula and the curved cannula assembly with the nitinol J-stylet was inserted. The spin wheel was rotated counterclockwise permitting excursion of the J- stylet. The curved cannula assembly was then advanced using a mallet in 1-2 mm increments. The J-stylet was observed to traverse the vertebral body in the AP and lateral views. Target was reached when the tip of the stylet was 45 % anterior of the posterior wall of the L5 in the lateral view (midway between the superior and inferior endplates) and it crossed the midline of the L5 spinous process in the AP view. The stylet was then removed. The bipolar radiofrequency (RF) probe was inserted into the introducer cannula in its ablation position. The spin wheel was rotated clockwise to retract the PEEK sleeve to expose the proximal electrode on the radiofrequency probe. The BVN was then ablated using [employer]?s standard RFG algorithm for 7 minutes.? While the ablation was occurring at below level the C-arm was moved to visualize the target at the superolateral aspect of the L4 vertebral body. The C-arm was rotated to square off the superior endplate at L4 . The superolateral ?right L4 pedicle was identified, and the skin entry point identified and infiltrated with mixture of 2% lidocaine with ropivacaine 0.5% one to one using a 25- gauge 1- 1/2 inch needle. A 22-gauge 5-inch spinal needle was used to anesthetize the track to the pedicle and periosteum and confirm the introducer cannula trajectory. A skin incision was made with 11 scalpel blade 5 mm. The introducer cannula with bevel tip was then introduced through the skin, subcutaneous tissue and paraspinal muscle until bony contact was made. The position was checked in the AP and lateral plane. Using a mallet, the trocar was then advanced through the pedicle to the posterior aspect of the vertebral body using a combination of AP and lateral views to ensure appropriate traversing of the pedicle and no lisbet aching of the pedicle medially or inferiorly. Once the trocar was in the posterior aspect of the L4 vertebral body, the trocar was removed from the cannula and the curved cannula assembly with the nitinol J-stylet was inserted. The spin wheel was rotated counterclockwise permitting excursion of the J- stylet. The curved cannula assembly was then advanced using a mallet in 1-2 mm increments. The J-stylet was observed to traverse the vertebral body in the AP and lateral views. Target was reached when the tip of the stylet was 48 % anterior of the posterior wall of the L5 in the lateral view (midway between the superior and inferior endplates) and it crossed the midline of the L4 spinous process in the AP view. The stylet was then removed. The bipolar radiofrequency (RF) probe was removed from the previous vertebral body, the tip cleaned and was inserted into the introducer cannula in its ablation position. The spin wheel was rotated clockwise to retract the PEEK sleeve to expose the proximal electrode on the radiofrequency probe. The BVN was then ablated using [employer]?s standard RFG algorithm for 15 minutes. After that all the instruments were removed from the patient's back, the incisions were infiltrated with above-mentioned mixture of lidocaine and ropivacaine, and sterile dressings using 2 by 2s and Tegaderm films were applied to the patient's back.
== END 2025-07-16 12:03 | disposition home or self-care (01) ==
PROVIDERS: Registered Nurse Emergency; Visit Provider Anesthesiology
PROC: (CPT 64628; principal; 2025-07-16 07:30)
DX: M54.51 Vertebrogenic low back pain (principal); M47.816 Spondylosis without myelopathy or radiculopathy, lumbar region; M48.061 Spinal stenosis, lumbar region without neurogenic claudication; G89.4 Chronic pain syndrome; I89.0 Lymphedema, not elsewhere classified; I11.0 Hypertensive heart disease with heart failure; I50.9 Heart failure, unspecified; I25.10 Atherosclerotic heart disease of native coronary artery without angina pectoris; E78.5 Hyperlipidemia, unspecified; J96.92 Respiratory failure, unspecified with hypercapnia; J96.91 Respiratory failure, unspecified with hypoxia; J44.9 Chronic obstructive pulmonary disease, unspecified; E11.9 Type 2 diabetes mellitus without complications; E66.01 Morbid (severe) obesity due to excess calories; Z68.42 Body mass index [BMI] 45.0-49.9, adult; Z88.0 Allergy status to penicillin
CPT/HCPCS: 64628; 64629; 82947; 87640; 87641; C1889; J0330; J0736; J1100; J1171; J2003; J2004; J2704; J2795; J3010

== ENCOUNTER → 2025-07-16 05:44 | Outpatient (BNV) | payer MEDICARE, SELFPAY | PROVIDERS: Visit Provider Anesthesiology | DX: M54.51 Vertebrogenic low back pain (principal) | CPT/HCPCS: 64628; 64629 ==

== ENCOUNTER 2025-07-20 08:41 | Outpatient (AMB) | payer MEDICARE, SELFPAY ==
--- OUTSIDE RECORDS SUMMARY | 2021-05-08 18:06 | XMS_ITS | Encounter Summary ---
Author Organization [facility] Address [address] [place] [phone] Phone Care Team Providers Care Learning Solutions Specialist Name Role Phone Jovanny Carter MD Primary Care Provider Encounter Details Date Type Department Care Team (Late st Contact Info) Description 05/08/2021 6:06 PM EDT Hospital Encounter [facility] [address] [place] [phone] Radha Taylor FNP [address] [place] [phone] [email or web address] Social History Tobacco Use Types Packs/Day Years [...] IMPRESSION: No fracture or dislocation. Radha Taylor MARINE PILOT IMG XR UPPER EXTREMITY Luz l Result documented in this encounter Visit Diagnoses Not on filedocumented in this encounter Care Teams Learning Solutions Specialist Relationship Specialty Start Date End Date Jovanny Carter MD [address] [place] [address] [place] [id number] PCP - General Internal Medicine 08/24/18 documented as of this encounter Additional Source Comments The information contained in this document represents components of the legal health record. It is not the complete legal health record.[facility]
--- OUTSIDE RECORDS SUMMARY | 2022-02-21 15:55 | XMS_ITS | Encounter Summary ---
Author Organization [facility] Address [address] [place] [phone] Phone Care Team Providers Care Daycare Provider Name Role Phone Jovanny Carter MD Primary Care Provider Encounter Details Date Type Department Care Team (Late st Contact Info) Description 02/21/2022 3:55 PM EDT Hospital Encounter [facility] [address] [place] [phone] Clemente Alejandra PA [address] [place] [phone] [email or web address] g Social History Tobacco Use Types Packs/Day [...] on filedocumented in this encounter Care Teams Daycare Provider Relationship Specialty Start Date End Date Jovanny Carter MD [address] [place] [address] [place] [address] PCP - General Internal Medicine 08/24/18 documented as of this encounter Additional Source Comments The information contained in this document represents components of the legal health record. It is not the complete legal health record.[facility]
--- NOTE | 2025-07-20 05:34 | MHC.OFFVIS ---
Vital Signs 07/20/25 08:44 Height 5 ft 5 in Weight 287 lb BMI 47.8 BP 140/70 H Pulse 91 Pulse Source Pulse Oximeter Pulse Oximetry (%) 94 Oxygen Delivery Method Room Air Intake Visit Reasons: solitary pulm nodule Rotary Driller Prospecting Required: No Contract Implementation Analyst: Contract Implementation Analyst offered & declined Accompanied by: Self / Same As Patient Allergies mold (MOLD) Allergy (Intermediate, Verified 07/20/25 08:49) COUGHING, SINUS CONGESTION Penicillins (PENICILLINS) Allergy (Intermediate, Verified 07/20/25 08:49) REVERSE REACTION MAKES PT FEEL WORSE Medication List - Last Reconciled 07/20/25 by Julita Stearns LPN aspirin 81 mg PO DAILY budesonide 0.25 mg (2 mL) inhalation BID bumetanide 3 mg (3 x 1 mg) PO BID clotrimazole-betamethasone 1-0.05 % 1 appl topical BID PRN diclofenac sodium 1% (Voltaren Arthritis Pain) 4 grams topical QID diltiazem HCl ER (Tiadylt ER) 360 mg PO DAILY gabapentin 300 mg PO BID gemfibrozil 600 mg PO DAILY glucosamine sulfate (Glucosamine) 500 mg PO DAILY ipratropium bromide 2 sprays intranasal BID ipratropium-albuterol 0.5 mg-3 mg(2.5 mg base)/3 mL 3 mL inhalation Q6H PRN lidocaine 5% 1 patch topical DAILY meloxicam 15 mg PO DAILY metformin ER 500 mg PO DAILY methylprednisolone (Medrol (Carson)) 4 mg PO PER PKG DIR 6 days metoprolol tartrate 25 mg PO DAILY omeprazole 20 mg PO DAILY@0630 ondansetron 4 mg PO Q8H 3 days pravastatin 40 mg PO DAILY HPI HPI solitary pulm nodule: Details: Izabel is an 85 year old female, never smoker, with underlying history of moderate COPD refusing supplemental oxygen, MAGAN refusing CPAP therapy, right sided heart failure followed by cardiology on bumex 3 mg BID, chronic lymphedema BLE and morbid obesity. At baseline she reports moderate control of symptoms using Nebulized Budesonide and DuoNeb in addition to using an Acapella valve PRN. She continues to report baseline dyspnea, wheezing and productive cough with clear to white sputum, recently yellow mucous with associated chest congestion. She is currently on a medrol dose carson, has two days left, from prior lumbar procedure. We previously discussed trialing alternative medications however she is reluctant to do so. She also continues to refuse supplemental oxygen despite the potential adverse effects of hypoxia. She has adamantly refused CPAP therapy in the past however is considering it at this time and would like to further discuss at follow up. [facility] Medical History Right heart failure Chronic respiratory failure with hypoxia and hypercapnia Obstructive sleep apnea CAD (coronary artery disease) PVC (premature ventricular contraction) Morbid obesity Dyslipidemia Type 2 diabetes mellitus Lymphedema Hypertension COPD (chronic obstructive pulmonary disease) Arthritis Surgical History History of hysterectomy History of knee replacement Family History Mother Coronary artery disease Mother No problems noted. Father No problems noted. Social History Household Members: Significant Other Housing: Apartment Do you presently have visiting nurse or other home services: No Alcohol intake: never Patient Tobacco Use Status: Never used Tobacco e-Cigarette/Vaping Use: Never Used Second Hand Smoke Exposure: No Advance Directives Date on File: 05/11/22 service: No Current occupational status: retired Cognitive needs: Yes (cane) Hearing needs: Yes (right ear hearing aid) Vision needs: No Review of Systems Const Denies chills, Denies excessive sweating, Denies fever(s), Denies headache(s) and Denies night sweats Eyes Denies dry eyes ENT Reports Normal hearing present, Denies headache(s) and Reports nasal congestion Card Denies chest pain, Denies chest pain at rest, Denies chest pain with activity, Reports dyspnea on exertion and Reports orthopnea Resp Denies change in phlegm color, Denies chest congestion, Reports cough, Denies hemoptysis, Denies pain on inspiration, Denies pain with cough, Reports dyspnea on exertion and Denies stridor Musc Denies myalgias Neuro Reports Normal hearing present and Denies headache(s) Endo Denies excessive sweating Aller/Immun Denies seasonal rhinorrhea Physical Exam Vital Signs: Last Vital Signs Pulse 91 07/20/25 08:44 BP 140/70 H 07/20/25 08:44 Pulse Ox 94 07/20/25 08:44 Oxygen Delivery Method Room Air 07/20/25 08:44 BMI result Body Mass Index 47.8 Neuro Cranial nerves: Yes Normal hearing present Assessment & Plan Assessment & Plan (1) COPD (chronic obstructive pulmonary disease): Code(s): J44.9 - Chronic obstructive pulmonary disease, unspecified Category: Medical Qualifiers: COPD type: COPD with acute exacerbation Qualified Code(s): J44.1 - Chronic obstructive pulmonary disease with (acute) exacerbation (2) Obstructive sleep apnea: Comment: Noncompliant with CPAP Code(s): G47.33 - Obstructive sleep apnea (adult) (pediatric) Category: Medical (3) Requires supplemental oxygen: Code(s): Z99.81 - Dependence on supplemental oxygen Category: Medical (4) Nocturnal hypoxemia: Code(s): G47.34 - Idiopathic sleep related nonobstructive alveolar hypoventilation Category: Medical (5) Lymphedema: Code(s): I89.0 - Lymphedema, not elsewhere classified Category: Medical (6) Right heart failure: Code(s): I50.810 - Right heart failure, unspecified Category: Medical Plan At this time, Izabel reports moderate control of respiratory symptoms on current regimen however continues with productive cough and chest congestion. Will treat bronchitic symptoms with doxycycline and encouraged to complete current steroid. Will increase budesonide 0.5 mg BID in addition to DuoNeb BID. She is aware to call if symptoms do not improve or seek emergent care if symptoms worsen. Will also send for CXR. We again discussed the adverse effects of hypoxia and untreated MAGAN, however patient continues to adamantly refuse oxygen and is considering CPAP therapy, understanding the negative cardiopulmonary effects. All questions were answered and patient is in agreement of plan. Will follow up in 4-6 weeks or sooner if needed. Orders: Orders XR chest 2V Today R05.9 - Cough, unspecified Medications: New doxycycline hyclate 100 mg PO BID 14 caps 0RF budesonide 0.5 mg (2 mL) inhalation BID 120 mL 3RF Discontinued budesonide Discontinued Reason: Patient Completed Course 0.25 mg (2 mL) inhalation BID 60 mL 6RF J44.1 - Chronic obstructive pulmonary disease with (acute) exacerbation Coding Level of Care Code Est Pt Level 4 (26082) Diagnoses COPD (chronic obstructive pulmonary disease) J44.1 COPD type: COPD with acute exacerbation Obstructive sleep apnea G47.33 Requires supplemental oxygen Z99.81 Nocturnal hypoxemia G47.34 Lymphedema I89.0 Right heart failure I50.810
[2025-07-20 08:44] VITALS: BP 140/70; PULSE 91; O2SAT 94; BMI 47.8
--- OUTSIDE RECORDS SUMMARY | 2025-07-20 10:28 | XMS_ITS | Clinical Summary ---
Author Organization [facility] Address [address] [place] [phone] Phone Care Team Providers Care Occ Therapy Asst Name Role Phone Jovanny Carter MD Primary [...] 08/27/2019 08/27/2018, 08/05, 08/25/2018, Additional history exists BLOOD PRESSURE 12/02/2024 06/01/2024 INFLUENZA VACCINE (#1) 2025 07/04/2021 COVID-19 VACCINE (2 - season) 2025 08/02/2021 HEPATITIS A VACCINES Aged Out No long [...] EDT) SODIUM 138 133 - 146 mmol/L [facility] CHLORIDE 97 96 - 108 mmol/L [facility] POTASSIUM 3.6 3.3 - 5.1 mmol/L [facility] CO2 30 21 - 35 mmol/L [facility] BUN 8 6 - 19 mg/dL [facility] CREATININE 0.60 0.5 - 1.5 mg/dL [facility] GLUCOSE 109(H) 70 - 99 mg/dL [facility] CALCIUM 8.8 8.4 - 10.3 mg/dL [facility] EGFR 89 >59 mL/min/1.7 3m2 [facility] Comment:If patient is black, multiply result by 1.159. Estimated glomerular filtration rate calculated using the CKD-EPI equation. ANION GAP 15 10 - 20 mmol/L [facility] Blood 08/27/2018 4:27 AM EDT 08/27/2018 5:30 AM EDT us Alejandra Teran MD LAB BLOOD ORDERABLES Final Result [facility] [address] [place] [address] from Last 3 Months or Most Recently Relevant to Health Maintenance Insurance MEDICARE PART A & B [email or web address] MEDEX SUPPLEMENT MEDICARE PART A & B [email or web address] MED[employer] SUPPLEMENT MEDICARE PART A & B [email or web address] MEDEX SUPPLEMENT MEDICARE PART A & B [email or web address] MEDEX SUPPLEMENT MEDICARE PART A & B [facility] MEDEX SUPPLEMENT MEDICARE PART A & B [employer] MED[employer] SUPPLEMENT MEDICARE PART A & B [employer] MED[employer] SUPPLEMENT MEDICARE PART A & B [employer] CROSS MEDEX SUPPLEMENT MEDICARE PART A & B [employer] CROSS MEDEX SUPPLEMENT Advance Directives For more information, please contact: [phone] (9AM - 5PM [place], Saturday-Saturday) Documents on File Type Date Recorded Patient Model [employer] Healthcare Proxy 08/29/2018 1:15 PM * Full Code (Confirmed) (Latest Code Status on File) Date Activated Date Inactivated Comments 08/24/2018 3:36 PM 08/28/2018 4:21 PM Question Answer Comments Code Status Confirmed With: Patient Care Teams Occ Therapy Asst Relationship Specialty Start Date End Date Jovanny Carter MD [address] [place] [address] [place] [address] PCP - General Internal Medicine 08/24/18 Additional Source Comments The information contained in this document represents components of the legal health record. It is not the complete legal health record.[facility]
== END 2025-07-20 09:20 | disposition home or self-care (01) ==
LOC: HO.HPSW 08:42
PROVIDERS: PCP Internal Medicine; Visit Provider Nurse Practitioner Family
DX: J44.1 Chronic obstructive pulmonary disease with (acute) exacerbation (principal); G47.33 Obstructive sleep apnea (adult) (pediatric); Z99.81 Dependence on supplemental oxygen; G47.34 Idiopathic sleep related nonobstructive alveolar hypoventilation; I89.0 Lymphedema, not elsewhere classified; I50.810 Right heart failure, unspecified
CPT/HCPCS: 99214

== ENCOUNTER → 2025-07-20 08:41 | Outpatient (BNVA) | payer MEDICARE, SELFPAY | PROVIDERS: PCP Internal Medicine; Visit Provider Nurse Practitioner Family | DX: I89.0 Lymphedema, not elsewhere classified (principal); J44.1 Chronic obstructive pulmonary disease with (acute) exacerbation; I50.810 Right heart failure, unspecified; G47.34 Idiopathic sleep related nonobstructive alveolar hypoventilation; Z99.81 Dependence on supplemental oxygen; G47.33 Obstructive sleep apnea (adult) (pediatric) | CPT/HCPCS: 99212 ==

== ENCOUNTER 2025-07-20 14:53 | Outpatient (AMB) | payer MEDICARE, SELFPAY ==
--- OUTSIDE RECORDS SUMMARY | 2021-05-08 18:06 | XMS_ITS | Encounter Summary ---
Author Organization [facility] Address [address] [place] [address] Phone Care Team Providers Care Utilization Review Coordinator Name Role Phone Jovanny Carter MD Primary Care Provider Encounter Details Date Type Department Care Team (Late st Contact Info) Description 05/08/2021 6:06 PM EDT Hospital Encounter [facility] [address] [place] [phone] Radha Taylor FNP [address] [place] [phone] [email or web address] Social History Tobacco Use Types Packs/Day [...] IMPRESSION: No fracture or dislocation. Radha Taylor LOADING UNIT TOOL SETTER IMG XR UPPER EXTREMITY Luz l Result documented in this encounter Visit Diagnoses Not on filedocumented in this encounter Care Teams Utilization Review Coordinator Relationship Specialty Start Date End Date Jovanny Carter MD [address] [place] [address] [place] [phone] PCP - General Internal Medicine 08/24/18 documented as of this encounter Additional Source Comments The information contained in this document represents components of the legal health record. It is not the complete legal health record.[facility]
[2025-07-20 15:02] VITALS: BMI 47.3
--- NOTE | 2025-07-20 15:02 | MHC.OFFVIS ---
Vital Signs 07/20/25 15:02 Height 5 ft 5 in Weight 284 lb BMI 47.3 Intake Visit Reasons: Follow up lymphedema measurements Intake Note: follow up lymphedema. Pt has bilateral LE swelling Left LE swelling worse than the right LE. Pt does have weeping and pain bilateral LE. Clinical Care Coordinator Required: No Accompanied by: Spouse Allergies mold (MOLD) Allergy (Intermediate, Verified 07/20/25 15:05) COUGHING, SINUS CONGESTION Penicillins (PENICILLINS) Allergy (Intermediate, Verified 07/20/25 15:05) REVERSE REACTION MAKES PT FEEL WORSE HPI HPI Follow up lymphedema measurements: Details: Very pleasant 85-year-old female presents for follow-up regarding lower extremity swelling. She has a history of bilateral knee replacements left knee in 2010 and right in 2016. She has been noticing significant lower extremity swelling. She has been compliant with her CircAid stockings with no significant relief. The concern is lymphedema for which we have been trying to obtain lymphedema pumps for she now presents for measurement evaluation. [facility] Medical History Right heart failure Chronic respiratory failure with hypoxia and hypercapnia Obstructive sleep apnea CAD (coronary artery disease) PVC (premature ventricular contraction) Morbid obesity Dyslipidemia Type 2 diabetes mellitus Lymphedema Hypertension COPD (chronic obstructive pulmonary disease) Arthritis Surgical History History of hysterectomy History of knee replacement Family History Mother Coronary artery disease Mother No problems noted. Father No problems noted. Social History Household Members: Significant Other Housing: Apartment Do you presently have visiting nurse or other home services: No Alcohol intake: never Patient Tobacco Use Status: Never used Tobacco e-Cigarette/Vaping Use: Never Used Second Hand Smoke Exposure: No Advance Directives Date on File: 05/11/22 service: No Current occupational status: retired Cognitive needs: Yes (cane) Hearing needs: Yes (right ear hearing aid) Vision needs: No Review of Systems Const All systems reviewed & are unremarkable except as noted in HPI and below Reports no additional complaints ENT Reports Normal hearing present Card Denies chest pain, Denies chest pain at rest, Denies chest pain with activity and Denies pedal edema Resp Denies cough GI Denies abdominal pain Musc Denies abnormal gait, Denies muscle cramps and Denies radiating pain into limb Skin/Breast Denies skin ulcer and Denies wounds Neuro Reports Normal hearing present and Denies abnormal gait Psych Reports no additional complaints Physical Exam Vital Signs: BMI result Body Mass Index 47.3 Const General: cooperative, healthy appearing and comfortable Orientation/consciousness: oriented to person, oriented to place and oriented to time HEENT Head: Yes normal to inspection Neck Neck: Yes normal visual inspection Carotids: no bruits Chest Chest palpation & inspection: normal inspection of the chest Resp Effort & Inspection: normal respiratory effort and able to speak in complete sentences Auscultation: clear to auscultation bilaterally, no crackles, no rales, no rhonchi and no wheezes Cardio Rate: regular rate Rhythm: regular rhythm Heart sounds: S1 normal heart sound present and S2 normal heart sound present Bruits: no carotid bruits Peripheral pulses: Peripheral pulses 2+ throughout GI Inspection: Yes normal to inspection Skin Wounds: no wounds Hair: normal Neuro General: oriented to person, oriented to place and oriented to time Cranial nerves: Yes CN's II-XII intact bilaterally and Yes Normal hearing present Cognition (Neuro): normal cognition Motor exam (neuro): 5/5 motor strength present throughout Extrem Other: venous exam: +3 edema, lymphedema, skin changes Right in cm: Thigh 68 Knee 58.5 Calf 56 Ankle 36.5 Left in cm: Thigh 75.5 Knee 64 Calf 67 Ankle 47 General: No clubbing, No cyanosis and Yes edema Psych Appearance: grossly normal Mental Status: mental status grossly normal Speech and movement: Normal speech and movement present Assessment & Plan Assessment & Plan (1) Lymphedema: Code(s): I89.0 - Lymphedema, not elsewhere classified Category: Medical Plan: In short the patient has late on sent lymphedema. The patient has been on conservative treatment for at least 3 months with minimal relief. Patient has tried 30 mm of mercury compression garments, elevation, exercise healthy diet and doing manual says self MLD to the best of their ability for over 4 weeks but with no significant relief. She has been compliant with the program but has provided minimal relief. In addition on physical we are noticing hyperpigmentation, lymphorrhea, and hyperplasia. It appears that she has stage 2 lymphedema. Patient has completed multiple forms of conservative therapy yet significant symptoms remain. Patient requires the use of a pneumatic compression device which we will assist in trying to have the patient obtain them. A pneumatic compression device will help reduce swelling and other lymphedema comorbidities. Thank you for allowing us to assist in this patient's care. Coding Level of Care Code Est Pt Level 4 (79463) Diagnoses Lymphedema I89.0
--- OUTSIDE RECORDS SUMMARY | 2025-07-20 18:34 | XMS_ITS | Clinical Summary ---
Author Organization [facility] Address [address] [place] [id number] Phone Care Team Providers Care Beet End Supervisor Name Role Phone Jovanny Carter MD Primary [...] EDT) SODIUM 138 133 - 146 mmol/L [facility] CHLORIDE 97 96 - 108 mmol/L [facility] POTASSIUM 3.6 3.3 - 5.1 mmol/L [facility] CO2 30 21 - 35 mmol/L [facility] BUN 8 6 - 19 mg/dL [facility] CREATININE 0.60 0.5 - 1.5 mg/dL [facility] GLUCOSE 109(H) 70 - 99 mg/dL [facility] CALCIUM 8.8 8.4 - 10.3 mg/dL [facility] EGFR 89 >59 mL/min/1.7 3m2 [facility] Comment:If patient is black, multiply result by 1.159. Estimated glomerular filtration rate calculated using the CKD-EPI equation. ANION GAP 15 10 - 20 mmol/L [facility] Blood 08/27/2018 4:27 AM EDT 08/27/2018 5:30 AM EDT us Alejandra Teran MD LAB BLOOD ORDERABLES Final Result [facility] [address] [place] [address] from Last 3 Months or Most Recently Relevant to Health Maintenance Insurance MEDICARE PART A & B [employer] MEDEX SUPPLEMENT MEDICARE PART A & B [employer] MEDEX SUPPLEMENT MEDICARE PART A & B [employer] MEDEX SUPPLEMENT MEDICARE PART A & B [employer] MEDEX SUPPLEMENT MEDICARE PART A & B [facility] MEDEX SUPPLEMENT MEDICARE PART A & B [employer] MEDEX SUPPLEMENT MEDICARE PART A & B [employer] MEDEX SUPPLEMENT MEDICARE PART A & B [employer] CROSS MEDEX SUPPLEMENT MEDICARE PART A & B [employer] CROSS MEDEX SUPPLEMENT Advance Directives For more information, please contact: [phone] (9AM - 5PM [place], Saturday-Saturday) Documents on File Type Date Recorded Patient Senior Sas Programmer Expl anation Healthcare Proxy 08/29/2018 1:15 PM * Full Code (Confirmed) (Latest Code Status on File) Date Activated Date Inactivated Comments 08/24/2018 3:36 PM 08/28/2018 4:21 PM Question Answer Comments Code Status Confirmed With: Patient Care Teams Beet End Supervisor Relationship Specialty Start Date End Date Jovanny Carter MD [address] [place] [address] [place] [address] PCP - General Internal Medicine 08/24/18 Additional Source Comments The information contained in this document represents components of the legal health record. It is not the complete legal health record.[facility]
== END 2025-07-20 15:22 | disposition home or self-care (01) ==
LOC: HO.HVS 14:53
PROVIDERS: PCP Internal Medicine; Visit Provider Surgery Vascular Surgery
DX: I89.0 Lymphedema, not elsewhere classified (principal)
CPT/HCPCS: 99214

== ENCOUNTER 2025-07-22 07:43 | Outpatient (REF) | payer MEDICARE, SELFPAY ==
--- OUTSIDE RECORDS SUMMARY | 2021-05-08 18:06 | XMS_ITS | Encounter Summary ---
Author Organization [facility] Address [address] [place] [phone] Phone Care Team Providers Care Slab Lifting Engineer Name Role Phone Jovanny Carter MD Primary Care Provider Encounter Details Date Type Department Care Team (Late st Contact Info) Description 05/08/2021 6:06 PM EDT Hospital Encounter [facility] [address] [place] [phone] Radha Taylor FNP [address] [place] [phone] [email or web address] Social History Tobacco Use Types Packs/Day Years [...] IMPRESSION: No fracture or dislocation. Radha Taylor RAT FARMER IMG XR UPPER EXTREMITY Luz l Result documented in this encounter Visit Diagnoses Not on filedocumented in this encounter Care Teams Slab Lifting Engineer Relationship Specialty Start Date End Date Jovanny Carter MD [address] [place] [address] [place] [phone] PCP - General Internal Medicine 08/24/18 documented as of this encounter Additional Source Comments The information contained in this document represents components of the legal health record. It is not the complete legal health record.[facility]
--- OUTSIDE RECORDS SUMMARY | 2022-02-21 15:55 | XMS_ITS | Encounter Summary ---
Author Organization [facility] Address [address] [place] [phone] Phone Care Team Providers Care Crust Sorter Name Role Phone Jovanny Carter MD Primary Care Provider Encounter Details Date Type Department Care Team (Late st Contact Info) Description 02/21/2022 3:55 PM EDT Hospital Encounter [facility] [address] [place] [phone] Clemente Alejandra PA [address] [place] [phone] [email or web address] g Social History Tobacco Use Types Packs/Day [...] on filedocumented in this encounter Care Teams Crust Sorter Relationship Specialty Start Date End Date Jovanny Carter MD [address] [place] [address] [place] [address] PCP - General Internal Medicine 08/24/18 documented as of this encounter Additional Source Comments The information contained in this document represents components of the legal health record. It is not the complete legal health record.[facility]
--- NOTE | ~2025-07-22 | XR_ITS ---
EXAMINATION: XR CHEST CLINICAL INFORMATION: R05.9 - Cough, unspecified COMPARISON: June 20, 2024 TECHNIQUE: PA and lateral views. FINDINGS: Pulmonary reticular pattern. Haziness in the lower hemithoraces. Blunting of the posterior costophrenic angles. No pneumothorax. No gross consolidation. Cardiomediastinal silhouette size is prominent, unchanged. Calcified plaque thoracic aorta. Osteopenia versus osteoporosis. Multilevel thoracolumbar spondylosis. Degenerative changes in the shoulders, right greater than the left side. Osteopenia versus osteoporosis. XR/XR chest 2V IMPRESSION: Consider mild interstitial lung edema and bilateral small pleural effusions. Cardiomegaly. Electronically signed by: Adonis Dykes MD 07/22/2025 08:11 AM EDT
--- OUTSIDE RECORDS SUMMARY | 2025-07-22 07:45 | XMS_ITS | Clinical Summary ---
Author Organization [facility] Address [address] [place] [address] Phone Care Team Providers Care Chemical Checker Name Role Phone Jovanny Carter MD Primary [...] EDT) SODIUM 138 133 - 146 mmol/L [facility] CHLORIDE 97 96 - 108 mmol/L [facility] POTASSIUM 3.6 3.3 - 5.1 mmol/L [facility] CO2 30 21 - 35 mmol/L [facility] BUN 8 6 - 19 mg/dL [facility] CREATININE 0.60 0.5 - 1.5 mg/dL [facility] GLUCOSE 109(H) 70 - 99 mg/dL [facility] CALCIUM 8.8 8.4 - 10.3 mg/dL [facility] EGFR 89 >59 mL/min/1.7 3m2 [facility] Comment:If patient is black, multiply result by 1.159. Estimated glomerular filtration rate calculated using the CKD-EPI equation. ANION GAP 15 10 - 20 mmol/L [facility] Blood 08/27/2018 4:27 AM EDT 08/27/2018 5:30 AM EDT us Alejandra Teran MD LAB BLOOD ORDERABLES Final Result [facility] [address] [place] [address] from Last 3 Months or Most Recently Relevant to Health Maintenance Insurance MEDICARE PART A & B [employer] MEDEX SUPPLEMENT MEDICARE PART A & B [employer] MEDEX SUPPLEMENT MEDICARE PART A & B [employer] MEDEX SUPPLEMENT MEDICARE PART A & B [employer] MEDEX SUPPLEMENT MEDICARE PART A & B [facility] MEDEX SUPPLEMENT MEDICARE PART A & B [employer] MEDEX SUPPLEMENT MEDICARE PART A & B [employer] MEDEX SUPPLEMENT MEDICARE PART A & B [employer] CROSS MEDEX SUPPLEMENT MEDICARE PART A & B [employer] CROSS MEDEX SUPPLEMENT Advance Directives For more information, please contact: [phone] (9AM - 5PM [place]iko/[place], Saturday-Saturday) Documents on File Type Date Recorded 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 It is not the complete legal health record.[facility]
== END 2025-07-22 07:44 | disposition home or self-care (01) ==
LOC: HO.XRAY 07:43
PROVIDERS: PCP Internal Medicine; Visit Provider Nurse Practitioner Family
DX: R05.9 Cough, unspecified (principal)
CPT/HCPCS: 71046

== ENCOUNTER → 2025-07-22 07:51 | Outpatient (BNV) | payer MEDICARE, SELFPAY | PROVIDERS: PCP Internal Medicine; Visit Provider Radiology Diagnostic Radiology | DX: R05.9 Cough, unspecified (principal) | CPT/HCPCS: 71046 ==

== ENCOUNTER 2025-07-23 09:52 | Outpatient (AMB) | payer MEDICARE, SELFPAY ==
--- OUTSIDE RECORDS SUMMARY | 2021-05-08 18:06 | XMS_ITS | Encounter Summary ---
Author Organization [facility] Address [address] [place] [phone] Phone Care Team Providers Care Collision Repairer Name Role Phone Jovanny Carter MD Primary Care Provider Encounter Details Date Type Department Care Team (Late st Contact Info) Description 05/08/2021 6:06 PM EDT Hospital Encounter [facility] [address] [place] [phone] Radha Taylor FNP [address] [place] [phone] [email or web address] Social History Tobacco Use Types Packs/Day [...] IMPRESSION: No fracture or dislocation. Radha Taylor FILE KEEPER IMG XR UPPER EXTREMITY Luz l Result documented in this encounter Visit Diagnoses Not on filedocumented in this encounter Care Teams Collision Repairer Relationship Specialty Start Date End Date Jovanny Carter MD [address] [place] [address] [place] [id number] PCP - General Internal Medicine 08/24/18 documented as of this encounter Additional Source Comments The information contained in this document represents components of the legal health record. It is not the complete legal health record.[facility]
--- OUTSIDE RECORDS SUMMARY | 2022-02-21 15:55 | XMS_ITS | Encounter Summary ---
Author Organization [facility] Address [address] [place] [address] Phone Care Team Providers Care Gasoline Attendant Name Role Phone Jovanny Carter MD Primary Care Provider Encounter Details Date Type Department Care Team (Late st Contact Info) Description 02/21/2022 3:55 PM EDT Hospital Encounter [facility] [address] [place] [phone] Clemente Alejandra PA [address] [place] [phone] [email or web address] g Social History Tobacco Use Types Packs/Day [...] on filedocumented in this encounter Care Teams Gasoline Attendant Relationship Specialty Start Date End Date Jovanny Carter MD [address] [place] [address] [place] [address] PCP - General Internal Medicine 08/24/18 documented as of this encounter Additional Source Comments The information contained in this document represents components of the legal health record. It is not the complete legal health record.[facility]
[2025-07-23 09:54] VITALS: BP 171/79; PULSE 84; RESP 16; O2SAT 91; BMI 47.3
--- NOTE | 2025-07-23 09:54 | MHC.OFFVIS ---
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 Following L4-5 S1 Intracept procedure performed one week ago, her pain level decreased from 10/10 to 1/10, showing a 90% improvement. She is now able to stand and ambulate for walker times and distances and relies less on her Rollator walker. She has a history of compressed spinal discs, as noted by her structural engineer, and has been advised that physical therapy may help, with injections or surgery as future options if needed. The patient also suffers from arthritis, which exacerbates her back pain. She has effectively managed her pain with Tylenol, reducing her need for codeine and lowering her risk of falls. - Onset: Significant reduction in pain following a procedure one week ago - Quality: Pain level decreased from 10/10 to 1/10 - Location: Back - Relieving factors: Procedure and Tylenol use - Affect: Pain significantly reduced, improving comfort - Analgesia: Current pain level at 1/10, managed with Tylenol - Adverse Effects: None reported from Tylenol - Activities of Daily Living: Improved ability to perform daily tasks with reduced pain - Aberrant Drug Related Behaviors: None reported Prior: The patient is an 85-year-old female presenting with chronic lower back pain. The pain is exacerbated by activities such as bending, lifting, and prolonged sitting, and is localized to the middle of the lower back. The patient reports that bending forward worsens the pain, and she attempts to use her knees to bend instead of bending from the waist. She underwent bilateral L3-L4 DR L5 medial branch blocks one-week ago with no improvement in her pain. The patient also reports lymphedema, with the left leg being significantly larger than the right, although the right leg is considered worse due to narrower veins. She is awaiting insurance approval for a device to help manage the lymphedema. - Onset and Timing: Chronic pain exacerbated by activities such as bending, lifting, and prolonged sitting. - Quality and Character: Localized to the middle of the lower back, worsened by bending forward. - Exacerbating Factors: Bending, lifting, prolonged sitting. - Relieving Factors: Attempts to use knees to bend instead of bending from the waist. - Affect: No specific impact on mood or psychological wellbeing discussed. - Analgesia: No current pain medications or goal pain levels discussed. - Adverse Effects: No side effects from pain medications discussed. - Activities of Daily Living: Pain interferes with activities such as bending, lifting, and prolonged sitting. - Aberrant Drug Related Behaviors: No signs of medication abuse or misuse discussed. [facility] Medical History Right heart failure Chronic respiratory failure with hypoxia and hypercapnia Obstructive sleep apnea CAD (coronary artery disease) PVC (premature ventricular contraction) Morbid obesity Dyslipidemia Type 2 diabetes mellitus Lymphedema Hypertension COPD (chronic obstructive pulmonary disease) Arthritis Surgical History History of hysterectomy History of knee replacement Family History Mother Coronary artery disease Mother No problems noted. Father No problems noted. Social History Household Members: Significant Other Housing: Apartment Do you presently have visiting nurse or other home services: No Alcohol intake: never Patient Tobacco Use Status: Never used Tobacco e-Cigarette/Vaping Use: Never Used Second Hand Smoke Exposure: No Advance Directives Date on File: 05/11/22 service: No Current occupational status: retired Cognitive needs: Yes (cane) Hearing needs: Yes (right ear hearing aid) Vision needs: No Review of Systems Const Details: - Musculoskeletal: Reports significant reduction in back pain - Neurological: Denies any new neurological deficits Physical Exam Exam Exam: General: awake, alert, oriented. Answers questions appropriately. Fully engaged in examination. Skin: warm, dry, intact HEENT: Normocephalic. Hearing intact. Cardiac: External chest normal in appearance. Respiratory: No cough, audible wheezing or stridor. Abdomen: without gross distension. MS: Lymphedema BLE Neurological: Oriented to person, place, time and situation. Thought process intact. Ambulates with the use of a Rollator walker Psychiatric: Appropriate mood and affect. Good judgment and insight. Intracept sites: Area was cleansed with chloraprep, dressings taken down, insertion site was visualized and without redness/irritation/drainage. Sutures were then removed, incision sites well approximated in healing well. Area cleansed again with chloraprep, bacitracin dressing was applied and covered with tegaderm. Patient tolerated well. Vital Signs: Last Vital Signs Pulse 84 07/23/25 09:54 Resp 16 07/23/25 09:54 BP 171/79 H 07/23/25 09:54 Pulse Ox 91 L 07/23/25 09:54 Oxygen Delivery Method Room Air 07/23/25 09:54 BMI result Body Mass Index 47.3 Results Reviewed Results Reviewed: 02/11/25 MRI LS FINDINGS: Last rib-bearing vertebra labeled T12. No bone marrow STIR signal abnormality. Marginal osteophyte formation and disc desiccation from T11-12 to L1 to from L4-5 to L5-S1. Grade 1 retrolisthesis, T12-L1, L1 to levels. Grade 1 anterolisthesis L3-4. Conus medullaris ends at intervertebral disc T12-L1 with normal signal. T12-L1: Broad-based disc bulging. Facet joint hypertrophy. No compression upon neural elements. L1-2: Broad-based disc bulging. Facet joint and ligamentum flavum hypertrophy. Reduced AP diameter of the thecal sac and the neural foramina. L2-3: Broad-based disc bulging. Facet joint and ligamentum flavum hypertrophy. Central spinal canal and bilateral neuroforamina stenosis, right greater than the left side likely encroaching the neural elements. L3-4: Broad-based disc bulging. Facet joint and ligamentum flavum hypertrophy. Reduced AP diameter of the thecal sac and the neural foramina. L4-5: [Disc bulging. Facet joint and ligamentum flavum hypertrophy. Reduced AP diameter of the thecal sac and neuroforamina narrowing encroaching the neural elements. L5-S1: Broad-based disc bulging. Facet joint hypertrophy. Bilateral neuroforamina stenosis encroaching the exiting nerve roots. No prevertebral compartment hematoma, mass or fluid collection. Multifocal different sizes round hyperintense T2 cystic lesions in the left kidney. Fatty atrophy of the lower lumbar muscles from L4 to sacrum. IMPRESSION: Multilevel thoracolumbar spondylosis resulting in grade 1 anterolisthesis L3-4 and grade 1 retrolisthesis L1 to and to a lesser extent T12-L1 causing central spinal canal and bilateral neuroforamina stenosis at L2-3, L4-5 and to a lesser extent L5-S1 encroaching the exiting nerve roots. Assessment & Plan Assessment & Plan (1) Lymphedema: Code(s): I89.0 - Lymphedema, not elsewhere classified Category: Medical (2) Lumbar stenosis: Code(s): M48.061 - Spinal stenosis, lumbar region without neurogenic claudication Category: Medical Qualifiers: Neurogenic claudication status: unspecified Qualified Code(s): M48.061 - Spinal stenosis, lumbar region without neurogenic claudication (3) Lumbar spondylosis: Code(s): M47.816 - Spondylosis without myelopathy or radiculopathy, lumbar region Category: Medical (4) Chronic pain syndrome: Code(s): G89.4 - Chronic pain syndrome Category: Medical (5) Vertebrogenic low back pain: Code(s): M54.51 - Vertebrogenic low back pain Category: Medical Plan The patient will maintain her current regimen of Tylenol for pain control, which has been effective in reducing her pain to a 1/10 level. She is encouraged to engage in physical therapy as ordered by Dr. Johnson to strengthen her back and manage her compressed spinal discs, with further interventions such as injections or surgery considered if necessary. The patient should monitor her condition and seek further medical advice if her pain increases or if she encounters new symptoms. Patient was informed and verbally consented to the use of an ambient scribe for clinic note documentation during this visit. Patient Instructions: - Continue taking Tylenol as needed for pain management. - Engage in physical therapy to strengthen your back. - Monitor your pain levels and return for further evaluation if symptoms worsen. Coding Level of Care Code Est Pt Level 3 (51561) Complex EM visit Add On G2211 Diagnoses Lymphedema I89.0 Spinal stenosis of lumbar region, unspecified whether neurogenic claudication present M48.061 Neurogenic claudication status: unspecified Lumbar spondylosis M47.816 Chronic pain syndrome G89.4 Vertebrogenic low back pain M54.51
--- OUTSIDE RECORDS SUMMARY | 2025-07-23 10:25 | XMS_ITS | Clinical Summary ---
Author Organization [facility] Address [address] [place] [address] Phone Care Team Providers Care Storage Management Consultant Name Role Phone Jovanny Carter MD Primary [...] EDT) SODIUM 138 133 - 146 mmol/L [facility] CHLORIDE 97 96 - 108 mmol/L [facility] POTASSIUM 3.6 3.3 - 5.1 mmol/L [facility] CO2 30 21 - 35 mmol/L [facility] BUN 8 6 - 19 mg/dL [facility] CREATININE 0.60 0.5 - 1.5 mg/dL [facility] GLUCOSE 109(H) 70 - 99 mg/dL [facility] CALCIUM 8.8 8.4 - 10.3 mg/dL [facility] EGFR 89 >59 mL/min/1.7 3m2 [facility] Comment:If patient is black, multiply result by 1.159. Estimated glomerular filtration rate calculated using the CKD-EPI equation. ANION GAP 15 10 - 20 mmol/L [facility] Blood 08/27/2018 4:27 AM EDT 08/27/2018 5:30 AM EDT us Alejandra Teran MD LAB BLOOD ORDERABLES Final Result [facility] [address] [place] [address] from Last 3 Months or Most Recently Relevant to Health Maintenance Insurance MEDICARE PART A & B [email or web address] MEDEX SUPPLEMENT MEDICARE PART A & B [email or web address] MEDEX SUPPLEMENT MEDICARE PART A & B [employer] MEDEX SUPPLEMENT MEDICARE PART A & B [employer] MEDEX SUPPLEMENT MEDICARE PART A & B [facility] MEDEX SUPPLEMENT MEDICARE PART A & B [employer] MEDEX SUPPLEMENT MEDICARE PART A & B [employer] MEDEX SUPPLEMENT MEDICARE PART A & B [employer]OSS MEDEX SUPPLEMENT MEDICARE PART A & B [employer] CROSS MEDEX SUPPLEMENT Advance Directives For more information, please contact: [phone] (9AM - 5PM Tamiko/[place], Saturday-Saturday) Documents on File Type Date Recorded 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 It is not the complete legal health record.[facility]
== END 2025-07-23 10:29 | disposition home or self-care (01) ==
LOC: HO.PMC 09:53
PROVIDERS: Visit Provider Registered Nurse Emergency
DX: I89.0 Lymphedema, not elsewhere classified (principal); M48.061 Spinal stenosis, lumbar region without neurogenic claudication; M47.816 Spondylosis without myelopathy or radiculopathy, lumbar region; G89.4 Chronic pain syndrome; M54.51 Vertebrogenic low back pain
CPT/HCPCS: 99024

== ENCOUNTER → 2025-07-23 09:52 | Outpatient (BNVA) | payer MEDICARE, SELFPAY | PROVIDERS: Visit Provider Registered Nurse Emergency | DX: M48.061 Spinal stenosis, lumbar region without neurogenic claudication (principal); I89.0 Lymphedema, not elsewhere classified; M47.816 Spondylosis without myelopathy or radiculopathy, lumbar region; M54.51 Vertebrogenic low back pain; G89.4 Chronic pain syndrome | CPT/HCPCS: 99212 ==

== ENCOUNTER 2025-09-07 08:00 | Outpatient (RCR) | payer MEDICARE, SELFPAY ==
--- NOTE | 2025-08-10 16:10 | MHC.PT.EP ---
[facility] [place] Office [place] Office [place] Office [address] Andreina Redmond [address] [phone] F: [phone] F: [phone] F: [phone] F: [phone] Physical Therapy Plan of Care Date of Evaluation: 08/10/25 Date of Surgery: Diagnosis: spinal stenosis (RL) Assessment: pt is a 85 y/o male presenting to physical therapy w/ referring diagnosis of spinal stenosis. Impairments include pain, decreased range of motion, decreased strength, impaired functional mobility, impaired postural awareness, and altered ambulation mechanics. pt is a fair candidate for skilled PT due to age, potential remediation of impairments, typical disease/condition progression and prognosis, comorbidities, and motivation. pt would benefit from skilled PT intervention to provide a tailored strengthening and stretching exercise program, functional training, gait training, postural re-training, neuromuscular re-education, modalities as needed for pain, equipment safety demonstration. Frequency and Duration: The patient will be seen 2x/wk for 4 wks Short Term Goals: pt will be I w/ HEP to promote self-management of condition. pt will improve B hip flexion by 1 MMT grade to promote ease in stair navigation. Penitentiary Goals: pt will report a statistically significant improvement in self-reported outcome measure, Miriam, to promote return to PLOF. pt will demo neutral spine w/ vacuuming and folding laundry tasks to reduce back pain w/ dope weigh operator. Treatment Plan: Modalities to reduce pain, spasms and effusion. Manual therapy to restore motion and function. Therapeutic exercise to improve strength and flexibility. Neuromuscular re-education for posture and balance. Therapeutic activities to return to functional activities of daily living. Electronically signed by: Tiffany Carr PT, DPT Please sign and return to therapist. Thank you for your referral.
--- NOTE | 2025-09-09 15:13 | MHC.PT.DC ---
[facility] [place] Office [place] Office [place] Office [address] Andreina Redmond [address] [phone] F: [phone] F: [phone] F: [phone] F: [phone] Physical Therapy Discharge Report Diagnosis: spinal stenosis (RL) Date of Surgery: Date of Evaluation: 08/10/25 Date of Discharge: 09/09/25 Treatments to Date: 9 Cancellations to Date: 0 No Shows to Date: 0 Discharge Status: Improved Function Independent with HEP Recommend MD Follow-up Discharge Summary: The patient overall was able to perform all of her cleaning yesterday with minimal back pain during and the following day. She feels she is independent with her home exercise program and can continue on her own. She is discharged from this physical therapy plan of care. She did endorse that she thinks she is ready for home services to help with heavy plastic sheeting cutter. I encouraged her to bring this up at her next PCP appointment. Electronically signed by: Tiffany Carr PT, DPT Please sign and return to therapist. Thank you for your referral.
== END 2025-09-09 15:13 | disposition home or self-care (01) ==
LOC: HO.PT 08:00
PROVIDERS: PCP Student in an Organized Health Care Education/Training Program; Visit Provider Anesthesiology
DX: M54.51 Vertebrogenic low back pain (principal); M48.00 Spinal stenosis, site unspecified
CPT/HCPCS: 97110; 97162; 97530

== ENCOUNTER 2025-09-20 08:13 | Outpatient (AMB) | payer MEDICARE, SELFPAY ==
--- NOTE | 2025-09-20 08:15 | A.OFFPC_ITS ---
Vital Signs 09/20/25 08:16 Height 5 ft 5 in Weight 282 lb BMI 46.9 BP 140/88 H Blood Pressure Location Lt brachial Position Sitting Respiration 24 H Pulse 108 H Pulse Source Pulse Oximeter Temp 96.0 F L Temp Source Temporal Artery Scan Pulse Oximetry (%) 96 Oxygen Delivery Method Room Air Intake Visit Reasons: MARGAUX-3 mo. f/u - see comments Intake Note: Wants to discuss diet changes to prevent gallbladder attacks. Wants gabapentin refill and to discuss a different way to check her glucose daily Systems Trainer Required: No Accompanied by: Self / Same As Patient Allergies mold (MOLD) Allergy (Intermediate, Verified 09/20/25 08:16) COUGHING, SINUS CONGESTION Penicillins (PENICILLINS) Allergy (Intermediate, Verified 09/20/25 08:16) REVERSE REACTION MAKES PT FEEL WORSE Medication List - Last Reconciled 09/20/25 by Feng Keita MD aspirin 81 mg PO DAILY budesonide 0.5 mg (2 mL) inhalation BID bumetanide 3 mg (3 x 1 mg) PO BID clotrimazole-betamethasone 1-0.05 % 1 appl topical BID PRN diclofenac sodium 1% (Voltaren Arthritis Pain) 4 grams topical QID diltiazem HCl ER (Tiadylt ER) 360 mg PO DAILY gabapentin 300 mg PO BID glucosamine sulfate (Glucosamine) 500 mg PO DAILY ipratropium bromide 2 sprays intranasal BID ipratropium-albuterol 0.5 mg-3 mg(2.5 mg base)/3 mL 3 mL inhalation Q6H PRN lidocaine 5% 1 patch topical DAILY meloxicam 15 mg PO DAILY metoprolol tartrate 25 mg PO DAILY omeprazole 20 mg PO DAILY@0630 ondansetron 4 mg PO Q8H 3 days pravastatin 40 mg PO DAILY 90 days Tobacco use date assessed: 09/20/25 Fall risk assessment: No Falls in past year Last assessed Fall Risk: 09/20/25 Dental Screening Dental Screen Date: 09/20/25 Did you have a dental visit in the last 12 months?: No Did you have a dental problem in the last 6 months where you did not have access to dental care?: No HPI MARGAUX-3 mo. f/u - see comments HPI Details MARGAUX HPI Comments History of Present Illness Details History of Present Illness The patient is an 85-year-old female presenting for management of multiple chronic conditions, with a specific concern about blood sugar fluctuations. She reports that changes in her blood sugar levels, such as a reading of 163 mg/dL this morning, cause her to feel queasy, weak, and dizzy. Her HbA1c is 6.6%, and she was previously on metformin 500mg daily but was told to stop taking it about two months ago. It was noted she has never met the criteria for diabetes and is considered prediabetic. The patient has a history of coronary artery disease, specifically triple vessel disease, and is prescribed aspirin, though she admits to not taking it recently. She also has right-sided heart failure, for which she takes bumetanide 3 mg twice daily, but she continues to experience leg swelling. She utilizes compression socks, wraps, and a compression device for one hour daily to manage the edema. Her history includes chronic kidney disease, stage 3A, which has been stable for a few years with a creatinine of 0.95. She has a diagnosis of COPD and uses an ipratropium inhaler and nebulized liquids, some twice daily and one once daily. She was prescribed doxycycline by her hospice liaison for a prior exacerbation but is not currently taking it. For pain, she takes gabapentin for neuropathy related to a fall almost three years ago, applies a lidocaine patch to her back, and has been taking meloxicam daily. She has a history of bilateral knee replacements, which she reports resolved her knee pain. The patient reports sharp abdominal pain after eating high-fat foods like peanut butter and butter, and she is aware she has gallstones. A general surgeon previously declined to perform surgery due to her high-risk status from her age and COPD. 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 Medical History: - Prediabetes - Coronary artery disease (triple vessel disease) - Right-sided heart failure - Chronic kidney disease, stage 3A - Chronic obstructive pulmonary disease (COPD) - Hypertension - Hypercholesterolemia - Peripheral neuropathy, secondary to a fall - Cholelithiasis - Chronic back pain - Gastroesophageal reflux disease Surgical History: - Bilateral knee replacements Medications: - Aspirin for heart disease (not current ly taking) - Bumetanide (Bumex) 3 mg twice a day fo r right-sided heart failure - Diltiazem 360 mg for blood pressure - Gabapentin for nerve damage - Ipratropium inhaler for COPD - Lidocaine patch for back pain - Meloxicam once a day for pain - Metoprolol tartrate for blood pressure - Nebulizer solutions for COPD (one take n once daily, others twice daily) - Omeprazole for acid reflux - Pravastatin for cholesterol - Diclofenac topical gel (previously for knee pain) - Doxycycline (previously for COPD exace rbation) - Metformin 500 mg once a day (discontin ued two months ago) Diagnostic Results: - Blood glucose: 163 mg/dL this morning. - HbA1c: 6.6% (from June of this year) . - Creatinine: 0.95 (stable). - Abdominal ultrasound: History of an ul trasound showing gallstones, though not performed recently. 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 - She has been advised to pace her activ ities and is considering hiring help for heavy housework. - Housing: Lives with her daughter. - Diet: She has reduced bread intake to one slice per day and does not use salt. - She was advised to eat small, frequent meals, avoid high-fat foods (peanut butter, butter, gravy), and cut back on potatoes and sweets. [facility] Medical History (Updated 09/20/25 @ 08:58 by Feng Keita MD) Debility Stage 3a chronic kidney disease (CKD) Prediabetes Abdominal pain Right heart failure Chronic respiratory failure with hypoxia and hypercapnia Obstructive sleep apnea CAD (coronary artery disease) PVC (premature ventricular contraction) Morbid obesity Dyslipidemia Type 2 diabetes mellitus Lymphedema Hypertension COPD (chronic obstructive pulmonary disease) Arthritis Surgical History History of hysterectomy History of knee replacement Family History Mother Coronary artery disease Mother No problems noted. Father No problems noted. Social History Household Members: Significant Other Housing: Apartment Do you presently have visiting nurse or other home services: No Alcohol intake: never Patient Tobacco Use Status: Never used Tobacco e-Cigarette/Vaping Use: Never Used Second Hand Smoke Exposure: No Advance Directives Date on File: 05/11/22 service: No Current occupational status: retired Cognitive needs: Yes (cane) Hearing needs: Yes (right ear hearing aid) Vision needs: No Questionnaire PHQ-9 Over the last 2 weeks, how often have you been bothered by any of the following problems? 1. Little interest or pleasure in doing things: not at all 2. Feeling down, depressed, or hopeless: nearly every day (her son ) 3. Trouble falling or staying asleep, or sleeping too much: nearly every day 4. Feeling tired or having little energy: nearly every day 5. Poor appetite or overeating: not at all 6. Feeling bad about yourself - or that you are a failure or have let yourself or your family down: not at all 7. Trouble concentrating on things, such as reading the newspaper or watching television: not at all 8. Moving or speaking so slowly that other people could have noticed. Or the opposite - being so fidgety or restless that you have been moving around a lot more than usual: not at all 9. Thoughts that you would be better off or of hurting yourself in some way: not at all Total score: 9 Depression Screening Interpretation: Positive Depression Screening Follow-up: Existing condition Depression Screening Done: Yes 88405 - PHQ-9 Billing: Yes Source: Developed by Drs. Davon Barkley, Romy Ko, Denton Barrios and colleagues, with an educational audelia from [employer]. Thrive Questionnaire Date Thrive assessed: 09/20/25 I am a: Patient Within the past 12 months, did the food you bought not last and you didn't have the money to get more?: Never true Within the past 12 months, did you worry whether your food would run out before you got money to buy more?: Never true Do you have trouble paying for medicines?: No Do you have trouble getting transportation to medical appointments?: No Do you have trouble paying your heating and electricity bill?: No Do you have trouble taking care of your child, family member or friend?: No Do you have trouble with day-to-day activities such as bathing, preparing meals, shopping, managing finances, etc.?: No Are you currently unemployed and looking for a job?: No Are you interested in more education?: No THRIVE Score: 0 AUDIT C Alcohol Use Questionnaire (AUDIT-C) 1. How often do you have a drink containing alcohol?: Never 3. How often do you have six or more drinks on one occasion?: Never Total Score: 0 KEY-7 AMB Questionnaire KEY-7 Date KEY - 7 assessed: 09/20/25 Feeling nervous, anxious, or on edge: 0 = Not at all Not being able to stop or control worryin = Not at all Worrying too much about different things: 0 = Not at all Trouble relaxin = Not at all Being so restless that it is hard to sit still: 0 = Not at all Becoming easily annoyed or irritable: 0 = Not at all Feeling afraid as if something awful might happen: 0 = Not at all Total KEY-7 score (0-4 normal; 5-9 mild; 10-14 moderate; 15-21 severe): 0 Source: Developed by Drs. Davon Barkley, Romy Ko, Denton Barrios and colleagues, with an educational audelia from [employer]. Review of Systems Narrative Review of Systems - General: Reports feeling queasy, weak, and dizzy with blood sugar fluctuations. - Cardiovascular: Reports leg swelling. - Gastrointestinal: Reports severe pain after eating high-fat foods such as peanut butter. - Reports normal bowel and bladder function. - Musculoskeletal: Reports chronic back pain. - Denies knee pain. - Neurological: Reports nerve damage from a fall. All systems reviewed & are unremarkable except as reviewed in HPI and above Physical exam (Primary Care) Vital Signs: Last Vital Signs Temp 96.0 F L 09/20/25 08:16 Pulse 108 H 09/20/25 08:16 Resp 24 H 09/20/25 08:16 BP 140/88 H 09/20/25 08:16 Pulse Ox 96 09/20/25 08:16 Oxygen Delivery Method Room Air 09/20/25 08:16 BMI result Body Mass Index 46.9 Tobacco/Smoking Status: Tobacco use Status Tobacco use date assessed 09/20/25 09/20/25 08:19 Patient Tobacco Use Status Never used Tobacco 09/20/25 08:15 e-Cigarette/Vaping Use Never Used 09/20/25 08:15 PHQ-9: PHQ-9 Score PHQ-9: Total score 9 09/20/25 08:28 Depression Screening Interpretation: Positive Depression Screening Follow-up: Existing condition Thrive Assessment: Date of Thrive Assessment Date Thrive assessed 09/20/25 09/20/25 08:19 Narrative Physical Exam General: Alert and oriented, Well nourished, No acute distress. Eye: Pupils are equal, round and reactive to light, Intact accommodation, Extraocular movements are intact, Normal conjunctiva, Vision unchanged. HENT: Normocephalic, Atraumatic, Tympanic membranes are clear, Normal hearing, Oral mucosa is moist, No pharyngeal erythema, Ear canals patent. Respiratory: Lungs CTA bilaterally, No wheeze, Respirations are non-labored. Cardiovascular: Regular rate, Regular rhythm, S1 auscultated, S2 auscultated, No murmur, Good pulses equal in all extremities, Normal peripheral perfusion, Edema present in both legs. Gastrointestinal: Soft, Non-tender, Non-distended, Normal bowel sounds, No organomegaly. Musculoskeletal: Normal range of motion, Normal strength, No tenderness, No swelling, No deformity, Normal gait. Integumentary: Warm, Dry, [place], Intact. Neurologic: Alert, Oriented, Normal sensory, Normal motor function, No focal defects, Cranial Nerves II-XII are grossly intact, Normal deep tendon reflexes. Psychiatric: Cooperative, Appropriate mood & affect, Normal judgment. Coding Level of Care Code Est Pt Level 4 (12115) Complex EM visit Add On G2211 Diagnoses Prediabetes R73.03 Right upper quadrant abdominal pain R10.11 Abdominal location: right upper quadrant Stage 3a chronic kidney disease (CKD) N18.31 Primary hypertension I10 Hypertension type: primary hypertension Chronic right-sided heart failure I50.812 Heart failure chronicity: chronic Debility R53.81 COPD (chronic obstructive pulmonary disease) J44.1 COPD type: COPD with acute exacerbation Lymphedema I89.0 Coronary artery disease involving [place] coronary artery, unspecified whether angina present, unspecified whether [place] or transplanted heart I25.10 Coronary Disease-Associated Artery/Lesion type: [place] artery [place] vs. transplanted heart: unspecified whether [place] or transplanted heart Associated angina: unspecified whether angina present Additional Codes PHQ-9 - 57672 - PHQ-9 Billing: Yes ([id number]) Assessment & Plan Assessment & Plan (1) Prediabetes: Comment: - The patient's A1c of 6.0% is acceptable for her age, and she does not meet the criteria for diabetes. - She reports symptomatic fluctuations with her blood sugar. - Plan is to discontinue metformin, check A1c today, and provide dietary counseling on eating small, frequent, low-carbohydrate meals. Code(s): R73.03 - Prediabetes Category: Medical (2) Abdominal pain: Comment: - The patient experiences abdominal pain with fatty foods, consistent with her known gallstones. - She is a high-risk surgical candidate due to her age and COPD. - Plan is to order an abdominal ultrasound to re-evaluate the gallstones and certified addiction counselor the patient to avoid high-fat foods. Code(s): R10.9 - Unspecified abdominal pain Category: Medical Qualifiers: Abdominal location: right upper quadrant Qualified Code(s): R10.11 - Right upper quadrant pain (3) Stage 3a chronic kidney disease (CKD): Comment: - The patient's kidney function is stable, but she is taking meloxicam, which can be nephrotoxic. - Plan is to reduce meloxicam to every other day to mitigate kidney injury. Code(s): N18.31 - Chronic kidney disease, stage 3a Category: Medical (4) Hypertension: Comment: - Blood pressure today is 140/88 mmHg, which is considered borderline but acceptable. - Continue current antihypertensive medications. - The patient was advised to continue dietary salt restriction. Code(s): I10 - Essential (primary) hypertension Category: Medical Qualifiers: Hypertension type: primary hypertension Qualified Code(s): I10 - Essential (primary) hypertension (5) Right heart failure: Comment: - The patient has persistent bilateral lower extremity edema despite treatment with bumetanide and use of compression therapy. - Plan is to continue current management. 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 - Plan is to certified addiction counselor the patient on activity pacing and place a referral to social work for a home health aide, though availability is uncertain. Code(s): R53.81 - Other malaise Category: Medical (7) COPD (chronic obstructive pulmonary disease): Comment: - Stable on current regiment of DuoNebs and intranasal ipratropium in addition to budesonide b.i.d.. Advised continued follow up with pulmonology at this time Code(s): J44.9 - Chronic obstructive pulmonary disease, unspecified Category: Medical Qualifiers: COPD type: COPD with acute exacerbation Qualified Code(s): J44.1 - Chronic obstructive pulmonary disease with (acute) exacerbation (8) Lymphedema: Comment: Chronic and uses compression stockings addition to rubs. Also reports using de vice at home for now ready to help with swelling. On exam does have 2+ swelling in bilateral lower extremities Code(s): I89.0 - Lymphedema, not elsewhere classified Category: Medical (9) CAD (coronary artery disease): Comment: Moderate diffuse three-vessel disease with calcified plaque without significant obstructive lesions by coronary CTA in March 2023 - The patient has a history of triple vessel disease and is prescribed aspirin but has been non-adherent. - Emphasized the importance of resuming aspirin and ensured the patient has a refill. Code(s): I25.10 - Atherosclerotic heart disease of [place] coronary artery without angina pectoris Category: Medical Qualifiers: Coronary Disease-Associated Artery/Lesion type: [place] artery [place] vs. transplanted heart: unspecified whether [place] or transplanted heart Associated angina: unspecified whether angina present Qualified Code(s): I25.10 - Atherosclerotic heart disease of [place] coronary artery without angina pectoris Plan: Health Maintenance: - Dietary counseling was provided, advising the patient to eat small, frequent meals. - Advised to reduce intake of carbohydrates, bread, potatoes, and sweets, and to avoid high-fat foods like peanut butter, butter, and gravy. - Activity counseling included advising the patient to pace herself with housework to avoid overexertion due to her COPD. - A discussion was had regarding in-home support for heavy cleaning, and a referral to social work was submitted. Patient was informed and verbally consented to the use of an ambient scribe for clinic note documentation during this visit. Vital signs reviewed. Comprehensive history, review of systems, and physical exam completed. Medications, allergies, and problem list reviewed and updated. Counseling provided on nutrition, regular exercise, sleep hygiene, and moderation of alcohol use. Discussed age-appropriate screenings (mammogram, colonoscopy, Pap, bone density) and immunizations (flu, COVID, shingles, Tdap). Screened for depression, fall risk, and home safety; no current concerns. Discussed stress management, dental and vision care, and importance of ongoing preventive follow-up. Routine labs ordered for metabolic and lipid screening. Patient educated on healthy lifestyle and agrees with the plan. Plan I discussed the patient's concern regarding her blood sugar fluctuations and explained that her current HbA1c of 6.6% is well-controlled for her age and that she does not meet the criteria for diabetes. We agreed to stop the metformin, which she has not taken for two months, and recheck her A1c today. I advised her about her stage 3A chronic kidney disease and the potential for meloxicam to worsen it, recommending she reduce the dose to every other day. I educated her on the importance of resuming her aspirin for her coronary artery disease. We talked about her abdominal pain, which is likely biliary colic from her known gallstones, triggered by high-fat foods. I explained that we would order an abdominal ultrasound to re-evaluate and that she should avoid such foods. We acknowledged that surgery is high-risk due to her age and COPD. We discussed her functional limitations and the need to avoid overexertion with housework. I placed a referral to social work for potential in-home assistance but informed her that the service may not be available. The plan is for her to get lab work today and return for an in-person follow-up in three months. Orders: Orders US abdomen limited Today R10.9 - Unspecified abdominal pain Referrals Workplace Relations Adviser Referral R53.81 - Other malaise Medications: Discontinued doxycycline hyclate Discontinued Reason: Doctor's Order 100 mg PO BID 14 caps 0RF Patient Instructions: - You can stop taking the metformin medication. - Take your meloxicam pill for pain every other day, not every day. - It is very important to start taking your aspirin again for your heart condition. - Eat small meals more often throughout the day instead of large meals. - Avoid foods that are high in fat, such as peanut butter, butter, and gravy. - To avoid getting too tired, do not do all your heavy cleaning on the same day. - [place] to the lab to have your blood drawn today. - We will order an ultrasound of your belly, and someone will call you to schedule the appointment. - We have sent a request to a nephrology social worker to see if you can get help with cleaning at home. - Please schedule a follow-up appointment to come back to the office in three months.
[2025-09-20 08:16] VITALS: BP 140/88; PULSE 108; RESP 24; TEMP 35.6; O2SAT 96; BMI 46.9
== END 2025-09-20 08:55 | disposition home or self-care (01) ==
LOC: HO.HMCHD 08:14
PROVIDERS: Visit Provider Student in an Organized Health Care Education/Training Program
DX: R73.03 Prediabetes (principal); R10.11 Right upper quadrant pain; N18.31 Chronic kidney disease, stage 3a; I10 Essential (primary) hypertension; I50.812 Chronic right heart failure; R53.81 Other malaise; J44.1 Chronic obstructive pulmonary disease with (acute) exacerbation; I89.0 Lymphedema, not elsewhere classified; I25.10 Atherosclerotic heart disease of native coronary artery without angina pectoris

== ENCOUNTER → 2025-09-20 08:13 | Outpatient (BNVA) | payer MEDICARE, SELFPAY | PROVIDERS: Visit Provider Student in an Organized Health Care Education/Training Program | DX: R73.03 Prediabetes (principal); I25.10 Atherosclerotic heart disease of native coronary artery without angina pectoris; R10.11 Right upper quadrant pain; N18.31 Chronic kidney disease, stage 3a; I50.812 Chronic right heart failure; R53.81 Other malaise; J44.1 Chronic obstructive pulmonary disease with (acute) exacerbation; I89.0 Lymphedema, not elsewhere classified | CPT/HCPCS: 36415; 80053; 83036; 96127; 99212 ==

== ENCOUNTER 2025-09-20 09:00 | Outpatient (REF) | payer MEDICARE, SELFPAY ==
[2025-09-20 11:24] LABS: Alanine Aminotransferase 28 U/L (0-31); Albumin Level 4.4 g/dL (3.5-5.0); Alkaline Phosphatase 104 U/L (39-117); Anion Gap 11 (12-20); Aspartate Amino Transferase 29 U/L (5-31); Blood Urea Nitrogen 17 mg/dL (9-16); Calcium 9.6 mg/dL (8.4-10.2); Carbon Dioxide 27 mmol/L (22-29); Chloride 109 mmol/L (96-108); Estimated Glomerular Filt Rate > 60; Potassium 4.2 mmol/L (3.3-5.1); Sodium 143 mmol/L (135-145); Total Protein 7.3 g/dL (6.5-8.0)
== END 2025-09-20 09:01 | disposition home or self-care (01) ==
LOC: HO.10HDL 09:00
PROVIDERS: Visit Provider Internal Medicine
DX: Z13.89 Encounter for screening for other disorder (principal)
CPT/HCPCS: 36415; 80053; 83036

== ENCOUNTER 2025-10-06 09:24 | Outpatient (AMB) | payer MEDICARE, SELFPAY ==
--- OUTSIDE RECORDS SUMMARY | 2021-05-08 17:06 | XMS_ITS | Encounter Summary ---
Author Organization [facility] Address [address] [place] [phone] Phone Care Team Providers Care Hiv Nurse Name Role Phone Jovanny Carter MD Primary Care Provider Encounter Details Date Type Department Care Team (Late st Contact Info) Description 05/08/2021 6:06 PM EDT Hospital Encounter [facility] [address] [place] [phone] Radha Taylor FNP [address] [place] [phone] [email or web address] Social History Tobacco Use Types Packs/Day Years Used Date Smoking Tobacco: Never Smokeless Tobacco: Never Alcohol Use Standard Drinks/Week Comments No 0 (1 standard drink = 0.6 oz pur e alcohol) Education Answer Date Recorded Are you interested in more education? Not on dick e 03/01/2023 Are you concerned about learning? Not on file 03/01/2023 No 03/01/2023 No 03/01/2023 Digital Access Answer Date Recorded No 04/01/2023 No 04/01/2023 No 04/01/2023 Reliable internet access at home? Not on file 04/01/2023 Device with a working camera? Not on file Comments Unknown Sex and Gender Information Value Date Recorded Sex Assigned at Female 08/24/2018 8:24 AM EDT Legal Sex Female 10:11 PM EDT Gender Identity Female 08/24/2018 8:24 AM EDT Sexual Orientation Straight 08/24/2018 8: 24 AM EDT documented as of this encounter Plan of Treatment Not on file documented as of this encounter Procedures Procedure Name Priority Date/Time Associated Diagnosis Comments XR WRIST 3 OR MORE VIEWS (LEFT) Urgent/patient waiting 05/08/2021 6:13 PM EDT Strain of left wrist, initial encounter documented in this encounter Results * XR WRIST 3 OR MORE VIEWS (LEFT) (05/08/2021 6:13 PM EDT) Anatomical Region Laterality Modality Wrist Left Computed Radiogr aphy 05/08/2021 6:19 PM EDT Impressions 05/08/2021 6:20 PM EDT No fracture or dislocation. Narrative 05/08/2021 6:20 PM EDT XR WRIST 3 OR MORE VIEWS (LEFT) COMPARISON: None FINDINGS: No fracture. Normal alignment. Advanced degenerative changes at first CMC joint. Osteopenia. No soft tissue swelling. Procedure Note Eddie Aragon MD - 05/08/2021 XR WRIST 3 OR MORE VIEWS (LEFT) COMPARISON: None FINDINGS: No fracture. Normal alignment. Advanced degenerative changes at first CMCjoint. Osteopenia. No soft tissue swelling. IMPRESSION: No fracture or dislocation. Radha Taylor HEAD ANIMAL TRAINER IMG XR UPPER EXTREMITY Luz l Result documented in this encounter Visit Diagnoses Not on filedocumented in this encounter Care Teams Hiv Nurse Relationship Specialty Start Date End Date Jovanny Carter MD [address] [place] [address] [place] [id number] PCP - General Internal Medicine 08/24/18 documented as of this encounter Additional Source Comments The information contained in this document represents components of the legal health record. It is not the complete legal health record.[facility]
--- OUTSIDE RECORDS SUMMARY | 2022-02-21 14:55 | XMS_ITS | Encounter Summary ---
Author Organization [facility] Address [address] [place] [phone] Phone Care Team Providers Care Photo Manager Name Role Phone Jovanny Carter MD Primary Care Provider Encounter Details Date Type Department Care Team (Late st Contact Info) Description 02/21/2022 3:55 PM EDT Hospital Encounter [facility] [address] [place] [phone] Clemente Alejandra PA [address] [place] [phone] [email or web address] g Social History Tobacco Use Types Packs/Day Years [...] Name Priority Date/Time Associated Diagnosis Comments XR CERVICAL SPINE 4-5 VIEWS Urgent/patient waiting 02/21/2022 4:06 PM EDT Trapezius muscle strain, left, initial encounter documented in this encounter Results * XR CERVICAL SPINE 4-5 VIEWS (02/21/2022 4:06 PM EDT) Anatomical Region Laterality Modality C-spine Computed Radiogr aphy 02/21/2022 4:28 PM EDT Impressions 02/21/2022 4:31 PM EDT Moderate multilevel degenerative changes as described. Narrative 02/21/2022 4:31 PM EDT XR CERVICAL SPINE 4-5 VIEWS COMPARISON: None FINDINGS: Straightening of the normal cervical lordosis. Partial ankylosis of the C2-C3 posterior elements. Vertebral body heights are preserved. Moderate multilevel degenerative endplate changes, uncovertebral arthropathy, and intervertebral disc height loss, worse at C5-C6. Mild to moderate multilevel facet arthropathy. Multilevel bony foraminal narrowing which is worse bilaterally at C6-C7. Dens is normal. Degenerative changes of the C1-C2 articulations. Prevertebral soft tissues are within normal limits. Procedure Note Feng Bliss MD - 02/21/2022 XR CERVICAL SPINE 4-5 VIEWS COMPARISON: None FINDINGS: Straightening of the normal cervical lordosis. Partial ankylosis of theC2-C3 posterior elements. Vertebral body heights are preserved. Moderatemultilevel degenerative endplate changes, uncovertebral arthropathy, andintervertebral disc height loss, worse at C5-C6. Mild to moderatemultilevel facet arthropathy. Multilevel bony foraminal narrowing which isworse bilaterally at C6-C7. Dens is normal. Degenerative changes of theC1-C2 articulations. Prevertebral soft tissues are within normal limits. IMPRESSION: Moderate multilevel degenerative changes as described. Clemente JENKINS IMG XR SPINE Final Resul t documented in this encounter Visit Diagnoses Not on filedocumented in this encounter Care Teams Photo Manager Relationship Specialty Start Date End Date Jovanny Carter MD [address] [place] [address] [place] [address] PCP - General Internal Medicine 08/24/18 documented as of this encounter Additional Source Comments The information contained in this document represents components of the legal health record. It is not the complete legal health record.[facility]
--- NOTE | 2025-10-06 09:07 | MHC.OFFVIS ---
Vital Signs 10/06/25 09:26 Height 5 ft 5 in Weight 279 lb 4 oz BMI 46.5 BP 140/82 H Blood Pressure Location Lt radial Position Sitting Pulse 77 Pulse Source Pulse Oximeter Pulse Oximetry (%) 92 Oxygen Delivery Method Room Air Intake Visit Reasons: solitary pulm nodule Allergies mold (MOLD) Allergy (Intermediate, Verified 10/06/25 09:29) COUGHING, SINUS CONGESTION Penicillins (PENICILLINS) Allergy (Intermediate, Verified 10/06/25 09:29) REVERSE REACTION MAKES PT FEEL WORSE HPI HPI solitary pulm nodule: Details: Izabel is a pleasant 85 year old female, never smoker, with underlying history of moderate COPD refusing supplemental oxygen, MAGAN refusing CPAP therapy, right sided heart failure followed by cardiology on bumex 3 mg BID, chronic BLE lymphedema and morbid obesity. She reportedly has been compliant with nebulized Budesonide BID and DuoNeb BID in addition to using an Acapella valve PRN. She continues to report baseline dyspnea, wheezing and productive cough with clear to white sputum, denies chest congestion, fevers, chills. We previously discussed trialing alternative respiratory medications however she is reluctant to do so. She also continues to refuse supplemental oxygen despite the potential adverse cardiopulmonary effects. She has a h/o MAGAN, unknown severity, previously refused CPAP therapy and continues to refuse. Patient denies any visits to urgent care hospitalizations related to respiratory distress since last visit. [facility] Medical History (Updated 10/06/25 @ 09:14 by Aida Quinn NP) Debility Stage 3a chronic kidney disease (CKD) Prediabetes Abdominal pain Right heart failure Chronic respiratory failure with hypoxia and hypercapnia Obstructive sleep apnea CAD (coronary artery disease) PVC (premature ventricular contraction) Morbid obesity Dyslipidemia Type 2 diabetes mellitus Lymphedema Hypertension COPD (chronic obstructive pulmonary disease) Arthritis Surgical History History of hysterectomy History of knee replacement Family History Mother Coronary artery disease Mother No problems noted. Father No problems noted. Social History Household Members: Significant Other Housing: Apartment Do you presently have visiting nurse or other home services: No Alcohol intake: never Patient Tobacco Use Status: Never used Tobacco e-Cigarette/Vaping Use: Never Used Second Hand Smoke Exposure: No Advance Directives Date on File: 05/11/22 service: No Current occupational status: retired Cognitive needs: Yes (cane) Hearing needs: Yes (right ear hearing aid) Vision needs: No Review of Systems Const Denies chills, Denies excessive sweating, Denies fever(s), Denies headache(s) and Denies night sweats Eyes Denies dry eyes ENT Reports Normal hearing present, Denies headache(s) and Reports nasal congestion Card Denies chest pain, Denies chest pain at rest, Denies chest pain with activity, Reports dyspnea, Reports dyspnea on exertion and Reports orthopnea Resp Denies change in phlegm color, Denies chest congestion, Reports cough, Denies hemoptysis, Denies pain on inspiration, Denies pain with cough, Reports dyspnea, Reports dyspnea on exertion, Denies stridor and Reports wheezing Musc Denies myalgias Neuro Reports Normal hearing present and Denies headache(s) Endo Denies excessive sweating Aller/Immun Denies seasonal rhinorrhea and Reports wheezing Physical Exam Vital Signs: Last Vital Signs Pulse 77 10/06/25 09:26 BP 140/82 H 10/06/25 09:26 Pulse Ox 92 10/06/25 09:26 Oxygen Delivery Method Room Air 10/06/25 09:26 BMI result Body Mass Index 46.5 Const General: cooperative and alert Nutritional Appearance: obese Orientation/consciousness: patient oriented x3 Limitations: ambulation with cane HEENT Head: Yes normal to inspection, Yes normocephalic and Yes atraumatic Ears: hearing grossly normal bilaterally and external ears normal Eyes General: appearance normal, both eyes and all related structures Periorbital: periorbital findings abnormal bilateral Eyelids: Yes eyelid abnormality Sclerae: sclerae normal EOM: EOMs intact bilaterally Neck Neck: Yes normal visual inspection and Yes no lymphadenopathy Lymphatic: no lymphadenopathy noted Chest Chest palpation & inspection: normal inspection of the chest Resp Effort & Inspection: able to speak in complete sentences, Actively coughing Quality: wet, no stridor, not tachypneic, no tripod positioning and no use of accessory muscles Auscultation: no crackles, no rales, rhonchi, wheezes and diminished lung sounds Cardio Jugular venous distension: no JVD Rate: regular rate Rhythm: regular rhythm Skin Other: warm, dry General skin exam: no rashes or lesions noted Neuro General: patient oriented x3 Cranial nerves: Yes Normal hearing present Cognition (Neuro): normal cognition Gait exam (Neuro): Normal gait present Extrem Other: chronic lymphedema General: Yes pedal edema Psych Appearance: grossly normal and well kempt Speech and movement: Normal speech and movement present and Clear speech present Affect: normal affect Attitude: cooperative Thought process: Normal thought process present Thought content: Normal thought content present Insight: Good insight present (Psych) Judgement: Good judgement present (Psych) Results Reviewed Results Reviewed: [address] [address] XRay Report Signed Patient: Izabel Edwards MR#: [id number] : 1940 Acct:[id number] Age/Sex: 85 / F ADM Date: 07/22/25 Loc: [facility] Attending Dr: Aida Quinn NP Ordering Physician: Aida Quinn NP Date of Service: 07/22/25 Procedure(s): XR chest 2V Accession Number(s): [id number] cc: Candy Cheng MD; Aida Quinn NP~ Reason for Exam: R05.9 - Cough, unspecified EXAMINATION: XR CHEST CLINICAL INFORMATION: R05.9 - Cough, unspecified COMPARISON: June 20, 2024 TECHNIQUE: PA and lateral views. FINDINGS: Pulmonary reticular pattern. Haziness in the lower hemithoraces. Blunting of the posterior costophrenic angles. No pneumothorax. No gross consolidation. Cardiomediastinal silhouette size is prominent, unchanged. Calcified plaque thoracic aorta. Osteopenia versus osteoporosis. Multilevel thoracolumbar spondylosis. Degenerative changes in the shoulders, right greater than the left side. Osteopenia versus osteoporosis. XR/XR chest 2V IMPRESSION: Consider mild interstitial lung edema and bilateral small pleural effusions. Cardiomegaly. 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34 - Idiopathic sleep related nonobstructive alveolar hypoventilation Category: Medical (5) Lymphedema: Code(s): I89.0 - Lymphedema, not elsewhere classified Category: Medical (6) Right heart failure: Code(s): I50.810 - Right heart failure, unspecified Category: Medical Qualifiers: Heart failure chronicity: chronic Qualified Code(s): I50.812 - Chronic right heart failure Plan At this time, Izabel reports moderate control of respiratory symptoms on current regimen however continues with with wheezing, will send prednisone. She is aware to call if symptoms do not improve or seek emergent care if symptoms worsen. Encouraged her to continue to use nebulized budesonide b.i.d. and DuoNeb b.i.d. to t.i.d. in addition to flutter valve. We again discussed the adverse effects of hypoxia and untreated MAGAN, however patient continues to adamantly refuse oxygen/CPAP therapy, understanding the negative cardiopulmonary effects. On chest x-ray from July 2025 there was note of small bilateral pleural effusions, message sent to cardiology to possibly follow-up sooner as likely related to fluid overload. All questions were answered and patient is in agreement of plan. Will follow up in 3 months or sooner if needed. Medications: New prednisone see taper instructions; 40 mg Daily x3 days, 30 mg daily x3 days, 20 mg daily x3 days, 10 mg daily x3 days 10 mg PO DIRECTED 30 tabs 0RF Coding Level of Care Code Est Pt Level 4 (75926) Complex visit Add On G2211 Diagnoses COPD (chronic obstructive pulmonary disease) J44.1 COPD type: COPD with acute exacerbation Obstructive sleep apnea G47.33 Requires supplemental oxygen Z99.81 Nocturnal hypoxemia G47.34 Lymphedema I89.0 Chronic right-sided heart failure I50.812 Heart failure chronicity: chronic
[2025-10-06 09:26] VITALS: BP 140/82; PULSE 77; O2SAT 92; BMI 46.5
== END 2025-10-06 10:09 | disposition home or self-care (01) ==
LOC: HO.HPSW 09:24
PROVIDERS: PCP Student in an Organized Health Care Education/Training Program; Visit Provider Nurse Practitioner Family
DX: J44.1 Chronic obstructive pulmonary disease with (acute) exacerbation (principal); G47.33 Obstructive sleep apnea (adult) (pediatric); Z99.81 Dependence on supplemental oxygen; G47.34 Idiopathic sleep related nonobstructive alveolar hypoventilation; I89.0 Lymphedema, not elsewhere classified; I50.812 Chronic right heart failure
CPT/HCPCS: 99214; G2211

== ENCOUNTER → 2025-10-06 09:24 | Outpatient (BNVA) | payer MEDICARE, SELFPAY | PROVIDERS: PCP Student in an Organized Health Care Education/Training Program; Visit Provider Nurse Practitioner Family | DX: J44.1 Chronic obstructive pulmonary disease with (acute) exacerbation (principal); G47.33 Obstructive sleep apnea (adult) (pediatric); G47.34 Idiopathic sleep related nonobstructive alveolar hypoventilation; R60.0 Localized edema; I50.812 Chronic right heart failure; I11.0 Hypertensive heart disease with heart failure; R06.02 Shortness of breath; E66.01 Morbid (severe) obesity due to excess calories; Z68.42 Body mass index [BMI] 45.0-49.9, adult | CPT/HCPCS: 99212 ==